=== PATIENT | female | born 1975 | race Caucasian/White ===

== ENCOUNTER → 2018-11-10 10:47 | Outpatient (CLI) | payer OTHER, SELFPAY ==
[2018-08-01 10:46] VITALS: BMI 24.0
--- NOTE | 2018-11-11 13:03 | PFT ---
INTRODUCTION: The patient is a 42-year-old female that presents for pulmonary function studies secondary to a diagnosis of COPD. Respiratory therapy reports good patient effort. Bronchodilators were used during testing. INTERPRETATION: Forced expiration spirometry demonstrates the presence of a mild large airways obstructive ventilatory defect. There was no significant response to aerosolized bronchodilators. Spirograms are of good quality and do not plateau indicating slow emptying of the lungs. Body plus tomography was performed and reveals lung volumes to be within normal limits. Diffusing capacity by single breath CO is also within normal limits. IMPRESSION: These pulmonary function studies demonstrate the presence of an irreversible mild large airways obstructive ventilatory defect with preserved lung volumes and diffusing capacity.
== END ==
PROVIDERS: Family Provider Family Medicine; PCP Family Medicine; Referring Provider Internal Medicine Critical Care Medicine; Visit Provider Internal Medicine Critical Care Medicine
DX: J45.40 Moderate persistent asthma, uncomplicated (principal)
CPT/HCPCS: 94060; 94726; 94729

== ENCOUNTER → 2018-12-13 16:05 | Outpatient (CLI) | payer OTHER, SELFPAY ==
--- NOTE | 2018-12-13 16:08 | CT_ITS ---
HISTORY: DYSPNEA X 6 MONTHS, COPD, ASTHMATIC BRONCHITIS TECHNIQUE: Helically acquired images were obtained of the chest. A radiation dose optimization technique was used for this scan. IV Contrast dosage and agent: None. COMPARISON: None FINDINGS: Mild hyperinflation. Minor peribronchial thickening in keeping with asthma/bronchitis. No pulmonary infiltrate, pulmonary nodule, or suspicious lesion. No bronchiectasis or interstitial lung disease. No pleural effusion or significant pleural disease. Non-infusion exam. No lymphadenopathy or pericardial effusion seen. Thoracic aorta is normal in caliber. Right adrenal gland 1.8 cm low-density nodule, 1-2 CT H.U. in keeping with a benign adenoma. CT/Chest without Contrast IMPRESSION: 1. Mild hyperinflation and minor peribronchial thickening in keeping with asthma/bronchitis. 2. No pneumonia or acute disease. 3. No bronchiectasis or suspicious lesion. 4. Right adrenal low-density nodule compatible with a benign adenoma. Individualized dose optimization techniques were used for this CT. at 0410 Reported and signed by: Mendoza Massey MD Electronically Signed: Mendoza Massey, at 4:08 EST Tel , Service support ,
== END ==
LOC: CT 16:07
PROVIDERS: Family Provider Family Medicine; PCP Family Medicine; Referring Provider Nurse Practitioner Acute Care; Visit Provider Nurse Practitioner Acute Care
DX: R06.02 Shortness of breath (principal)
CPT/HCPCS: 71250

== ENCOUNTER → 2018-12-29 09:25 | Outpatient (CLI) | payer OTHER, SELFPAY ==
[2018-12-22 14:10] VITALS: BMI 25.8
--- NOTE | 2018-12-29 09:27 | US_ITS ---
STUDY: ULTRASOUND BREAST - LEFT REASON FOR EXAM: Female, 43 years old. Ultrasound guided left breast biopsy. TECHNIQUE: Axial and longitudinal images of the LEFT breast were performed with a high resolution ultrasound transducer. COMPARISON: Comparison is made with prior outside examination dated December 09, 2018. FINDINGS: LEFT Breast: Under direct sonographic guidance, the surgeon performed 5 core biopsies of the hypoechoic nodule at the 1:00 position of the breast at 2 cm from the nipple. US/US Breast Biopsy 1st Lesion IMPRESSION: Ultrasound guided core biopsies of the hypoechoic nodule as described. ASSESSMENT CATEGORY: BIRADS Category 2: Benign. A letter regarding these results will be sent to the patient by the facility within 30 days. Electronically Signed: Chaitanya Clark MD at 11:29 EST , Service support ,
--- NOTE | 2018-12-29 10:44 | PCM.OPRPT ---
Problem List (1) Abnormal mammogram of left breast Status: Acute Report of Operation Date of Procedure: 12/29/18 Pre-Operative Diagnosis: Abnormal mammogram to left breast Post-Operative Diagnosis: Same Surgery/Procedure Performed:: Ultrasound-guided handheld mammotome breast biopsy of left breast Type of Anesthesia:: Local Estimated Blood Loss (mL): < 5 cc Description of Procedure: Patient was brought into the ultrasound unit. Placed in the supine position. Left breast was ultrasounded lesion was identified at the 12 o'clock position. The breast was prepped with chlorhexidine. 1% lidocaine plain was injected. A small skin le was made. Local was injected posterior to the lesion under ultrasound guidance. Under ultrasound guidance I directed the hand-held mammotome needle posterior to the lesion. Numerous biopsies of this lesion were obtained. Under ultrasound guidance a small titanium clip was placed. Sterile dressings were applied. The patient tolerated the procedure well. - Admit VTE Documentation VTE Present on Admission: No VTE Mechan Device Prophylaxis: None VTE Pharm Prophylaxis ordered?: No Reason prophylaxis not ordered:: Treatment Not Indicated
--- NOTE | 2018-12-29 10:50 | BRBX_PTH ---
PATIENT: AYLEEN ROMERO LOC: OPUS U#:[id number] AGE/SX: 49/F ROOM: RE12/29/[address]: Dr. Andrew Stevens MD : 1975 BED: DIS: SPEC #: [id number] RECD: 12/29/18 10:56 STATUS: AMRIT RELeonard #: [id number] DANNA: 12/29/18 10:[address]: Andrew Stevens DEPT: SURGICAL PATHOLOGY RECD BY: Paul Jenkins ENTERED: 12/29/18 12:21 SP TYPE: BREAST BX OTHR DR: Dr. Carlin Adam MD Tissues: Left breast, NOS Procedures: Surgery Specimen Level IV HEADER OPERATION: Ultrasound-guided left breast biopsy PRE-OP DIAGNOSIS: Left breast mass on ultrasound TISSUE SUBMITTED: Left breast ISCHEMIC TIME: 60 seconds FIXATION TIME: 9 hours MICROSCOPIC DIAGNOSIS Left breast, ultrasound-guided core biopsy: Fibrocystic change. No evidence of malignancy. AM:dajuan 12/30/18 MICROSCOPIC DESCRIPTION Slides are reviewed. GROSS DESCRIPTION Received in fixative is one container labeled with the patient's name and designated left breast. The specimen consists of multiple elongated fragments of evans-yellow fibroadipose tissue that in aggregate measure 2.5 x 1 x 0.1 cm. The entire specimen is submitted in one cassette. / SJ:dajuan 12/29/18 TC:5 CPT: 34040
== END ==
LOC: OPUS 09:25
PROVIDERS: Family Provider Family Medicine; PCP Family Medicine; Referring Provider Surgery; Visit Provider Surgery
DX: R92.8 Other abnormal and inconclusive findings on diagnostic imaging of breast (principal)
CPT/HCPCS: 19083; 88305

== ENCOUNTER 2019-01-11 08:42 | Day surgery (SDC) | payer OTHER, SELFPAY ==
[2018-12-22 14:10] VITALS: BMI 25.8
[2019-01-11 08:57] VITALS: BP 122/76; PULSE 89; RESP 18; TEMP 36.3; O2SAT 98; BMI 26.3
--- NOTE | 2019-01-11 09:45 | EGD_PTH ---
PATIENT: AYLEEN ROMERO LOC: EN U#:[id number] AGE/SX: 43/F ROOM: RE01/11/[address]: Dr. Andrew Stevens MD : 1975 BED: DIS: 01/11/2019 SPEC #: [id number] RECD: 01/11/19 10:25 STATUS: AMRIT LEA #: [id number] DANNA: 01/11/19 09:[address]: Andrew Stevens DEPT: SURGICAL PATHOLOGY RECD BY: Paul Jenkins ENTERED: 01/11/19 12:53 SP TYPE: EGD BIOPSY OTHR DR: Dr. Carlin Adam MD Tissues: A - Gastric mucous membrane B - Rectum, NOS Procedures: Surgery Specimen Level IV HEADER OPERATION: Colonoscopy, EGD ([facility]) PRE-OP DIAGNOSIS: Sweet's syndrome TISSUE SUBMITTED: A - Antral biopsy and H. pylori, B - Rectal polyp MICROSCOPIC DIAGNOSIS A. Gastric antrum, biopsy: Mild chronic gastritis. See comment. B. Rectal polyp, biopsy: Hyperplastic polyp. AM:dajuan 01/12/19 COMMENT A. The results of immunohistochemistry for Helicobacter pylori will be reported separately ([id number]). MICROSCOPIC DESCRIPTION Slides are reviewed. GROSS DESCRIPTION A - Received in fixative is one container labeled with the patient's name and designated gastric antral biopsy. The specimen consists of one irregular fragment of light eavns soft tissue that measures 0.5 x 0.3 x 0.1 cm. The specimen is totally submitted in one cassette. B - Received in fixative is one container labeled with the patient's name and designated rectal polyp. The specimen consists of one irregular fragment of light evans soft tissue that measures 0.3 x 0.2 x 0.1 cm. The specimen is totally submitted in one cassette. / AM:dajuan 01/11/19 TC:5 CPT: 15677 x2
--- NOTE | 2019-01-11 09:45 | IMM_PTH ---
PATIENT: AYLEEN ROMERO LOC: EN U#:[id number] AGE/SX: 43/F ROOM: RE01/11/[address]: Dr. Andrew Stevens MD : 1975 BED: DIS: 01/11/2019 SPEC #: [id number] RECD: 01/11/19 13:55 STATUS: AMRIT RELeonard #: [id number] DANNA: 01/11/19 09:[address]: Andrew Stevens DEPT: IMMUNOHISTOCHEMISTRY RECD BY: Danelle Chaparro ENTERED: 01/11/19 13:56 SP TYPE: IMMUNO OTHR DR: Dr. Carlin Adam MD Tissues: A - Stomach, NOS Procedures: H Pylori (initial) PHYSICIAN & INSTITUTION [place] [address] SPECIMEN INFORMATION: Tissue Source: A - Antral biopsy Clinical Info: Sweet's syndrome Specimen Number: [id number] CPT code: 33278 METHODOLOGY: Deparaffinized sections of prefer/formalin-fixed tissue or PAP/DQ stained slides are incubated with monoclonal/polyclonal antibodies/oligonucleotide probes. Localization is made via biotin free immunoperoxidase method. Appropriate controls are performed and reacted as expected. Results on target cell population are indicated in the following table: RESULTS: ANTIBODY / CLONE RESULT Block A H Pylori (polyclonal) negative These tests were developed and their performance characteristics determined by [facility]. They may not have been cleared or approved by the U.S. Food and Drug Administration. The FDA has determined that such clearance or approval is not necessary. INTERPRETATION: A. Antral biopsy: Negative for Helicobacter pylori organisms. AM:dajuan 01/12/19
[2019-01-11 10:06] VITALS: BP 122/76; BP 81/50; PULSE 72; RESP 16; TEMP 36.2; O2SAT 98
--- NOTE | 2019-01-11 10:06 | OP.ENDO_ITS ---
01/11/2019 Carlin Adam [address] [place] [address] [place] [address] Re : Upper GI endoscopy procedure for Lillie Holland Dear Dr. Adam This procedure was performed on Friday, January 11, 2019. My impressions and recommendations are as follows: Impressions : - Z-line regular, 39 cm from the incisors. - Normal esophagus. - Gastritis. Biopsied. - Normal examined duodenum. No specimens collected. Recommendations : - Discharge patient to home. - Resume previous diet. - Continue present medications. - Await pathology results. - Repeat upper endoscopy is not recommended for surveillance based on pathology results. - Return to my office in 1 week. My findings are described in the full procedure note, which is enclosed. If I can be of further assistance, please feel free to contact me at Doctor phone number(s): , Fax: [phone], Work: . Sincerely, MD Andrew Contreras MD 01/11/2019 10:06:10 AM This report has been signed electronically.
--- NOTE | 2019-01-11 10:09 | OP.ENDO_ITS ---
01/11/2019 Carlin Adam [address] [place] [address] [place] [address] Re : Colonoscopy procedure for Lillie Holland Dear Dr. Adam This procedure was performed on Friday, January 11, 2019. My impressions and recommendations are as follows: Impressions : - One 5 mm polyp in the rectum, removed with a hot snare. Resected and retrieved. - The entire examined colon is normal on direct and retroflexion views. Recommendations : - Discharge patient to home. - Resume previous diet. - Continue present medications. - Await pathology results. - Repeat colonoscopy in 3 years for surveillance. - Return to my office in 2 weeks. My findings are described in the full procedure note, which is enclosed. If I can be of further assistance, please feel free to contact me at Doctor phone number(s): , Fax: [phone], Work: . Sincerely, MD Andrew Contreras MD 01/11/2019 10:09:17 AM This report has been signed electronically.
[2019-01-11 10:10] VITALS: BP 122/76; BP 99/64; PULSE 68; RESP 16; O2SAT 99
[2019-01-11 10:15] VITALS: BP 104/58; BP 122/76; PULSE 69; RESP 16; O2SAT 100
[2019-01-11 10:24] VITALS: BP 101/61; BP 122/76; PULSE 69; RESP 16; TEMP 36.3; O2SAT 98
[2019-01-11 10:40] VITALS: BP 122/76
== END 2019-01-11 11:02 | disposition home or self-care (01) ==
LOC: EN 08:43 → AC 08:44
PROVIDERS: Family Provider Family Medicine; PCP Family Medicine; Referring Provider Surgery; Visit Provider Surgery
PROC: 0DJD8ZZ Inspection of Lower Intestinal Tract, Via Natural or Artificial Opening Endoscopic (ICD-10-PCS; CPT 45378; principal; 2019-01-11 09:40)
DX: K62.1 Rectal polyp (principal); K29.50 Unspecified chronic gastritis without bleeding; L98.2 Febrile neutrophilic dermatosis [Sweet]; J42 Unspecified chronic bronchitis; K21.9 Gastro-esophageal reflux disease without esophagitis; Z87.891 Personal history of nicotine dependence
CPT/HCPCS: 43235; 45385; 88305; 88342; J7120; J2405

== ENCOUNTER → 2023-10-25 | Outpatient (CLI) | payer MEDICAID, SELFPAY ==
[2023-10-25 13:53] VITALS: PULSE 82; PULSE 84; PULSE 87; PULSE 92; PULSE 94; PULSE 96; PULSE 97; O2SAT 98; O2SAT 99
--- NOTE | 2023-10-26 12:47 | WT_ITS ---
PSN 6 Minute Walk Test 6 Minute Walk Test 6 Minute Walk Test: 6 Minute Walk Test PSN:6-Minute Walk Test Start: 10/25/23 13:53 Freq: Status: Active Protocol: RESP.6MINW Document 10/25/23 13:53 [facility] (Rec: 10/25/23 13:56 [facility] [id number]) 6 Minute Walk Test Date Performed 10/25/23 Time Performed 12:30 Height 5 ft 3 in Weight: 145 lb Weight in Pounds 145.[address]: Dangelo Muller Assistive device used: None Pre-test Oxygen Delivery Method Room Air Pulse Ox 99 Pulse Rate (60-100) 84 Dyspnea Brandy Scale (0-10) 1 1st minute Oxygen Delivery Method Room Air Pulse Ox 99 Pulse Rate (60-100) 87 Dyspnea Brandy Scale (0-10) 2 Number of Rests Taken 0 Reported Symptoms Increased Work of Breathing 2nd minute Oxygen Delivery Method Room Air Pulse Ox 99 Pulse Rate (60-100) 92 Dyspnea Brandy Scale (0-10) 2 Number of Rests Taken 0 Reported Symptoms Increased Work of Breathing 3rd minute Oxygen Delivery Method Room Air Pulse Ox 98 Pulse Rate (60-100) 96 Dyspnea Brandy Scale (0-10) 3 Number of Rests Taken 0 Reported Symptoms Increased Work of Breathing 4th minute Oxygen Delivery Method Room Air Pulse Ox 98 Pulse Rate (60-100) 94 Dyspnea Brandy Scale (0-10) 3 Number of Rests Taken 0 Reported Symptoms Increased Work of Breathing 5th minute Oxygen Delivery Method Room Air Pulse Ox 99 Pulse Rate (60-100) 97 Dyspnea Brandy Scale (0-10) 3 Number of Rests Taken 0 Reported Symptoms Increased Work of Breathing 6th minute Oxygen Delivery Method Room Air Pulse Ox 99 Pulse Rate (60-100) 96 Dyspnea Brandy Scale (0-10) 3 Number of Rests Taken 0 Reported Symptoms Increased Work of Breathing Post-test Oxygen Delivery Method Room Air Pulse Ox 98 Pulse Rate (60-100) 82 Dyspnea Brandy Scale (0-10) 1 Full Laps Walked 19 Partial Lap, Number of Tiles Walked 0 Total Distance Walked (ft) 1121 Interpretation Interpretation: The patient ambulated 1121 feet over the course of 6 minutes beginning on room air without assistive devices. Pretesting oxygen saturation was noted to be 99% on room air. With ambulation, the cam oxygen saturation was 98%. There was no significant exertional oxygen desaturation. Recommendations Recommendations: There is no indication for the use of supplemental oxygen at this time.
== END | disposition home or self-care (01) ==
LOC: PSN 12:25
PROVIDERS: Referring Provider Internal Medicine Critical Care Medicine; Visit Provider Internal Medicine Critical Care Medicine
DX: J44.9 Chronic obstructive pulmonary disease, unspecified (principal)
CPT/HCPCS: 94618

== ENCOUNTER → 2023-12-13 | Outpatient (CLI) | payer MEDICAID, SELFPAY ==
--- NOTE | 2023-12-13 09:45 | ECHOD_ITS ---
Reason For Study: DYSPNEA/SOB Procedure This was a 2D Doppler, Color Flow transthoracic echocardiogram. Exam performed in department. Left Ventricle Normal size and thickness. The left ventricular ejection fraction is 60 %. Normal diastology for age. Right Ventricle Normal right ventricle. Atria The left and right atria are normal. Bubble contrast study is negative for PFO/ASD. Mitral Valve Trivial mitral valve insufficiency. Tricuspid Valve Normal tricuspid valve. Aortic Valve Trisinus/trileaflet aortic valve. Pulmonic Valve The pulmonic valve is not well visualized. Great Vessels Normal sized aortic root. Pericardium/Pleural No pericardial effusion. Epicardial fat. Medication 22 gauge I.V. with prn adaptor inserted into left arm. Performed a rapid injection of agitated mix of 9 cc saline and 1cc air to assess for atrial septal defect. MMode/2D Measurements & Calculations LVIDd: 4.6 cm IVSd: 0.89 cm Ao root diam: 2.9 cm LVIDs: 3.2 cm LVPWd: 0.70 cm RVDd: 2.8 cm FS: 30.8 % LAV(MOD-bp): 26.5 ml LVAd ap4: 27.1 cm2 SV(MOD-sp4): 49.0 ml LAV(MOD-bp) Indexed: 15.5 ml/m2 LVLd ap4: 7.4 cm LAV(MOD-sp2): 28.0 ml EDV(MOD-sp4): 80.9 ml LAV(MOD-sp4): 25.0 ml EDV(sp4-el): 84.5 ml LVAs ap4: 15.5 cm2 LVLs ap4: 6.4 cm ESV(MOD-sp4): 32.0 ml ESV(sp4-el): 31.8 ml EF(MOD-sp4): 60.5 % EF(sp4-el): 62.4 % SV(sp4-el): 52.8 ml LA A4 area: 11.6 cm2 LA dimension(2D): 3.4 cm RA A4 area: 10.3 cm2 TAPSE: 2.0 cm Time Measurements MV dec time: 0.19 sec Doppler Measurements & Calculations MV E max kory: 74.6 cm/sec Lat Peak E' Kory: 11.8 cm/sec Med Peak E' Kory: 12.1 cm/sec MV A max kory: 75.7 cm/sec E/E' lat: 6.3 E/E' med: 6.2 MV E/A: 0.99 Ao V2 max: 128.5 cm/sec LV V1 max: 96.1 cm/sec PA V2 max: 73.9 cm/sec Ao max P.6 mmHg LV V1 max P.7 mmHg ECHO/Echo Complete Interpretation Summary The left ventricular ejection fraction is 60 %. Bubble contrast study is negative for PFO/ASD. Ordering Physician: Ashanti Mejía Referring Physician: LEONORA SALDIVAR Performed By: [place] RDCS
--- OUTSIDE RECORDS SUMMARY | 2023-12-13 10:11 | XMS RPT_ITS | CCD ---
Author Name Unknown Address [address] [place] [address] Organization [facility] Care Team Providers Care Accounts Receivable Manager Name Role Phone SALDIVAR, LEONORA PAC Primary Care Unavailable SALDIVAR, LEONORA PAC Attending Unavailable SALDIVAR, LEONORA PAC Admitting Unavailable SALDIVAR, LEONORA PAC Primary Care Unavailable SALDIVAR, LEONORA PAC Attending Unavailable SALDIVAR, LEONORA PAC Admitting Unavailable SALDIVAR, LEONORA PAC Primary Care Unavailable SALDIVAR, LEONORA PAC Attending Unavailable SALDIVAR, LEONORA PAC Admitting Unavailable CECILE, HEBERT Guerrero Attending Unavailable CECILE, HEBERT Guerrero Admitting Unavailable CECILEHEBERT HENDRIX Primary Care Unavailable BONY PALAFOX Consulting Unavailable BONY PALAFOX Referring Unavailable PROVIDER, UNKNOWN Consulting Unavailable SALDIVAR, LEONORA Primary Care Unavailable KIERA, AASIM Referring Unavailable KIERA, AASIM Attending Unavailable SALDIVAR, LEONORA Primary Care Unavailable KIERA, AASIM Attending Unavailable SALDIVAR, LEONORA Primary Care Unavailable KIERA, AASIM Attending Unavailable SALDIVAR, LEONORA Referring Unavailable Saldivar PAJo, Leonora J Unavailable [phone] Zina Welch MD ([place]) Unavailable [facility], Pulmonary Unavailable Dr. Emerita Styles MD Unavailable Counseling Provider Unavailable Unavailable Rheumatolgy Provider Unavailable Unavailable Dr. Hood Gentile MD Unavailable Dr. Carlin Robles MD, V Unavailable Yarn Cleaner/Gynecology Prov. Unavailable Un available Cardiology Provider Unavailable Unavailable Dr. Soledad Quesada MD Unavailable [phone] [place], Occupational Therapy Unavailable Physical Therapy Provider Unavailable Barbra Lynch MD Unavailable Himanshu MILL TURNER, Frida Unavailable Renzo SEQUEIRA, Juan Amado Unavailable Sarah ROSAS, Bridget Unavailable Unavailable Gogoi (scribe), Hemanta Unavailable Unavaila eveline Garcias MILL TURNER, Nava Unavailable Unavailable Jair SEQUEIRA, Carlin Gerardo Unavailable Tenisha LABOY, Luerica Guerrero Unavailable Shiloh Palafox Unavailable Unavailable Tenisha RN, Agustina L Unavailable Unavail able Chirag ROSAS, Elizabeth Unavailable Unavailable Param BERGERONN, Daniella Unavailable Unavailable King KIMMYC, Rubio Segovia Unavailable Eloy HICKMAN, Radha Gerardo Unavailable Unavailraul Rossi RN, Shyla Unavailable Seven LABOY, Virgen Melton Unavailable Austyn BERGERONN, Leonor Unavailable Unavailabl lacie Bowers MILL TURNER, Lady Unavailable Unavailable Unavailable Unavailable Medications Current Medications Medication Drug Class(es) Dates Sig (Normalized) Sig (Original) diphenhydrAMINE hydrochloride 50 mg oral capsule (3 sources) Histamine-1 Receptor Antagonist Start: 08-27-2023 take 1 capsule by mouth at bedtime Unisom SleepGels 50 mg capsule ; 1 (one) capsule at bedtime for 0 days Quantity: 30 {Capsule} Refills: 0 Ordered: 27-Aug-2023 BENOIT Saldivar Start: 27-Aug-2023 DULoxetine 30 mg delayed release oral capsule (3 sources) Serotonin and Norepinephrine Reuptake Inhibitor Start: 10-27-2023 DULoxetine 30 mg capsule,delayed release ; 1 (one) capsule daily for 0 days Quantity: 60 {Capsule} Refills: 1 Ordered: 04-Nov-2023 BENOIT Saldivar Start: 04-Nov-2023 omeprazole 20 mg delayed release oral capsule (3 sources) Proton Pump Inhibitor Start: 11-02-2023 omeprazole 20 mg capsule,delayed release ; 1 (one) capsule daily for 0 days Quantity: 30 {Capsule} Refills: 2 Ordered: 02-Nov-2023 BENOIT Saldivar Start: 02-Nov-2023 terbinafine 250 mg oral tablet (3 sources) Allylamine Antifungal Start: 08-09-2023 terbinafine HCL 250 mg tablet ; 1 (one) tablet daily for 0 days Quantity: 42 {Tablet} Refills: 0 Ordered: 09-Aug-2023 BENOIT Saldivar Start: 09-Aug-2023 varenicline 1 mg oral tablet (12 sources) Partial Cholinergic Nicotinic Agonist Start: 07-19-2023 varenicline 1 mg tablet ; 1 (one) tablet two times daily for 30 days Quantity: 60 {Tablet} Refills: 1 Ordered: 19-Jul-2023 ALISON Beard Start: 19-Jul-2023 Completed/Discontinued Medications Medication Drug Class(es) Dates Sig (Normalized) Sig (Original) acetaminophen 325 mg / HYDROcodone bitartrate 5 mg oral tablet (3 sources) Opioid Agonist Start: 12-09-2015 End: 01-04-2017 take 1-2 tablets by mouth every six hours as needed Hydrocodone-Aceta minophen 5-325 MG Oral Tablet ; 1-2 Tablet every six hours, as needed for severe pain for 0 days Quantity: 30 {Tablet} Refills: 0 Ordered: 04-Jan-2017 VICK Lyons Start: 09-Dec-2015 End: 04-Jan-2017 Status: Inactive Comments: Medication taken as needed. may cause drowsiness Problems Active Problems Problem Classification Problem Date Documented Da te Episodic/Chronic Acute bronchitis (6 sources) Acute bronchitis 08-04-2021 Episodic Administrative/social admission (6 sources) Patient encounter status; Translations: [Tobacco abuse counseling] 08-04-2021 Episodic Alcohol-related disorders (6 sources) Alcohol abuse; Translations: [Alcohol abuse, uncomplicated] 08-09-2023 Chronic Chronic obstructive pulmonary disease and bronchiectasis (20 sources) Chronic airway obstruction, not elsewhere classified; Translations: [Moderate chronic obstructive pulmonary disease] 08-04-2021 Chronic Fluid and electrolyte disorders (6 sources) Hyperkalemia; Translations: [Hyperkalemia] 08-04-2021 Episodic Genitourinary symptoms and ill-defined conditions (6 sources) Incontinence; Translations: [Unspecified urinary incontinence] 08-09-2023 Chronic Immunizations and screening for infectious disease (6 sources) Immunization due; Translations: [Encounter for immunization] 07-22-2023 Episodic Malaise and fatigue (6 sources) Fatigue; Translations: [Other fatigue] 08-04-2021 Episodic Menstrual disorders (6 sources) Dysmenorrhea; Translations: [Dysmenorrhea, unspecified] 08-09-2023 Chronic Mood disorders (18 sources) Depressive disorder; Translations: [Depressive disorder, not elsewhere classified] 08-04-2021 Chronic Mycoses (20 sources) Onychomycosis; Translations: [Tinea unguium] 05-19-2023 Episodic Nausea and vomiting (6 sources) Nausea; Translations: [Nausea] 08-09-2023 Episodic Nonspecific chest pain (18 sources) Chest pain; Translations: [Chest pain, unspecified] 08-09-2023 Episodic Nutritional deficiencies (1 source) Vitamin D deficiency, unspecified; Translations: [Vitamin D deficiency, unspecified] Onset: 08-26-2023 Chronic Other aftercare (6 sources) Drug indicated; Translations: [Other fpc (current) drug therapy] 08-04-2021 Episodic Other circulatory disease (12 sources) Vasculitis; Translations: [Arteritis, unspecified] 08-09-2023 Chronic Other connective tissue disease (1 source) Myalgia, unspecified site; Translations: [Myalgia, unspecified site] Onset: 07-08-2023 Episodic Other connective tissue disease (1 source) Fibromyalgia; Translations: [Fibromyalgia] Onset: 07-08-2023 Episodic Other connective tissue disease (9 sources) Fibromyalgia; Translations: [Fibromyalgia] 08-27-2023 Episodic Other connective tissue disease (6 sources) Pain in right foot; Translations: [Pain in right foot] 08-09-2023 Episodic Other diseases of bladder and urethra (6 sources) Overactive bladder; Translations: [Overactive bladder] 08-09-2023 Chronic Other inflammatory condition of skin (1 source) Febrile neutrophilic dermatosis [Sweet]; Translations: [Febrile neutrophilic dermatosis (sweet)] Onset: 07-08-2023 Episodic Other inflammatory condition of skin (20 sources) Acute febrile neutrophilic dermatosis; Translations: [Febrile neutrophilic dermatosis [Sweet]] 08-09-2023 Episodic Other injuries and conditions due to external causes (6 sources) Other injury of chest wall 01-26-2019 Episodic Other injuries and conditions due to external causes (9 sources) Injury of chest wall; Translations: [Unspecified injury of thorax, initial encounter] 08-09-2023 Episodic Other injuries and conditions due to external causes (6 sources) Injury of great toe; Translations: [Unspecified injury of left foot, initial encounter] 08-09-2023 Episodic Other lower respiratory disease (9 sources) Cough; Translations: [Cough] 08-04-2021 Episodic Other lower respiratory disease (6 sources) Dyspnea; Translations: [Shortness of breath] 08-09-2023 Episodic Other nervous system disorders (9 sources) Disturbance of skin sensation 08-04-2021 Episodic Other non-traumatic joint disorders (1 source) Pain in unspecified joint; Translations: [Pain in unspecified joint] Onset: 07-08-2023 Episodic Other screening for suspected conditions (not mental disorders or infectious disease) (20 sources) Encounter for screening mammogram for malignant neoplasm of breast; Translations: [Patient encounter status] Onset: 05-21-2023 Episodic Other skin disorders (6 sources) Skin tag; Translations: [Other hypertrophic disorders of the skin] 08-04-2021 Episodic Residual codes; unclassified (9 sources) Insomnia; Translations: [Insomnia, unspecified] 08-27-2023 Episodic Residual codes; unclassified (20 sources) Tobacco user; Translations: [Tobacco use] 08-09-2023 Episodic Substance-related disorders (7 sources) Nicotine dependence, cigarettes, uncomplicated; Translations: [Procedure needed] Onset: 07-08-2023 08-04-2021 Chronic Unclassified (3 sources) deliveries 08-09-2023 Past or Other Problems Problem Classification Problem Date Documented Da te Episodic/Chronic Unclassified (3 sources) Well adult female - The patient does not feel well, has decreased energy level and is sleeping poorly. The first day of the last menstrual period was : (no longer having - had a hysterectomy in 2019). The patient has a balanced diet. The patient does not exercise. The patient sleeps 6 hours per night. Note for Well adult female : Patient's presents for her physical today with multiple complaints. She has not had regular follow up with a doctor in several years. She has fasting labs to be reviewed today.Patient complains today of shortness of breath and cough for several years. She has a history of COPD, but has not had PFTs or treatment in at least 3 years. She reports that the shortness of breath is sometimes made worse with exertion. She reports sometimes having a sharp, right-sided chest pain that will last for a number of seconds before resolving. She denies any chest pain on exertion or leg swelling.Patient also reports that she has been very fatigued and has little energy. She states that she does not feel motivated to complete tasks and that she has lost interest in things that she likes to do. She is having trouble sleeping and feels like she needs to sleep during the day. Her depression screen is positive, but she states I don't feel depressed. I only feel this bad because I am so tired. She does state that she has been emotional' and feels apple. 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 She reports that she has been having pain. She reports pin in my bones, not my joints. Patient is a current smoker and is interested in quitting. She currently smokes up to 2 packs a day. She has had some success in the past with Chantix.Patient was seen for onychomycosis in 2020. She was to have labs completed before starting an oral treatment. She did not have labs completed and treatment was not started. She would like to start this treatment now if possible. 06-14-2023 Unclassified (3 sources) TOE INJURY - On Wednesday evening pt dropped furniture on her left foot, her big toe is swelled and bruisedthe tip of the toe hurts the worse, very tenderfeels like its going to explode out the top per ptit hurts to walk, but it is getting better since it happened, its better when she is not moving it it thumbs when she is sleeping, hurts if anything touches it pt used tylenol at night pt did go to work yesterday but it was tough 10-15-2021 Unclassified (3 sources) Foot pain - The pain is in the right foot and is located in the forefoot. The onset of the foot pain was sudden and has been occurring in a persistent pattern for 1 week. The course has been worsening. The pain is characterized as a burning sensation (sharp). The pain is aggravated by any movement. The pain has been relieved by acetaminophen. Note for Foot pain : Denies any trauma 08-04-2021 Unclassified (3 sources) Follow-up - Patient is here today for a 2 month follow-up. 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 Patient was seen at [facility] for a rash on her thighs back in December. Was prescribed an ointment and the rash has resolved but continues to have itchiness of her thighs. Patient brought a list of recent symptoms: numbness and pain in right arm and hand, body aches, bones hurt, extreme fatigue, itchiness, trouble sleeping, temporary loss of vision, lightheadedness, nausea, headaches, off balance, memory loss and shortness of breath.Patient been seeing Dr. Eason for right arm pain, who referred pt to Dr. Poncho Rossi,was told that she may have compartment syndrome and should have a Nerve conduction study done. Last CBC, CMP, CEA, ESR done 11/29/2018. 01-26-2019 Unclassified (3 sources) Full Workup - Patient is here today to have a full workup for her Sweet syndrome. She was seen here for a rash previously and was then sent to [facility]. 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 States we should know what the full work up of this entails. There was concern about underlying malignancy. 11-29-2018 Unclassified (3 sources) Rash - The onset of the rash has been gradual and has been occurring in a persistent pattern for months. The course has been increasing. The rash is characterized as red and raised above the skin. The rash was first seen on the upper extremity (hands). It spread to the upper extremity (arms) and the lower extremity (legs). There has been associated itching and pain. Note for Rash : Patient states she was given a cream before that was ineffective. 08-26-2018 Unclassified (3 sources) Follow up consultation - The patient is here to follow-up after a consult (seen on office 05/27/2018 for cough, vasculitis. here for one week follow. chest xray done). Note for Consultation follow-up : rash is gone from last week. no longer itching. still has cough and fatigue. has been sleeping well (8 hours) but has been waking not feeling well rested.needing to go over lab results 06-03-2018 Unclassified (3 sources) Rash - The onset of the rash has been gradual and has been occurring in a persistent pattern for 1 month. The course has been increasing. The rash is characterized as red, pustular and raised above the skin. The rash was first seen on the upper extremity (hands). It spread to the back (shoulders) and the upper extremity (hands arms). There has been associated itching, pain and drainage (clear). There has been associated fatigue (unsure if related). 05-27-2018 Unclassified (3 sources) Well adult female - The patient does not feel well, has decreased energy level and is sleeping poorly (Trouble falling asleep and is up several times a night. Reports waking up due to having pain of her shoulders especiall the left shoulder). The first day of the last menstrual period was : (started with menses today. Her menses have been very irregular. Will last for about 3-4 days then will stop for 1-2 days then reoccur. Been having about two menses per month. Is experiencing a heavier flow, blood clots. Is more painful and cramps are worse than before. Is having night sweats. ). The patient has an inappropriate diet (eats usually once a day, sometimes will eat twice a day. When she does eat, she will eat a small portion.) and takes no supplemental vitamins & iron. The patient does not exercise. The patient sleeps 5 (5-6 hours, broken up sleep) hours per night. Note for Well adult female : Would like to discuss today having pain of her left shoulder area. The pain will radiate up her neck in the ear and down the arm and into the shoulder blade. Has numbness and tingling of her arms, fingers. Would like to discuss smoking cessation today. Reviewed by ERINN. 01-04-2017 Unclassified (3 sources) Concern - Patient is here today with a concern of having pain of the right side of the chest. Is a constant sharp shooting pain and the area is tender to the touch; pain is positional. She has been having the chest discomfort for the past couple of months. Is radiating into the right shoulder blade. The pain has worsened since falling Wednesday evening. Reports that she was carrying firewood and slipped, fell backwards. Does think the firewood impacted her chest during the fall. No bruising. Had severe pain yesterday morning. Feels short of breath and it is difficult to breath at times. Is having pain on inhalation and exhalation. Does having numbness and tingling of the bilateral arms with the right arm being worse. Is having trouble sleeping from the pain and numbness. The pain worsens when lying down. Thought it might have been from smoking and poor circulation. Has taken Ibuprofen that helps to ease the pain. Was coughing more yesterday than today. Did quit smoking 8 days ago. No fever 12-09-2015 Unclassified (3 sources) Cold Symptoms - Symptoms include nasal congestion, runny nose, sore throat, productive cough and headache, but do not include ear pain or fever. The onset was gradual 1 week(s) ago. The symptoms occur constantly. The patient describes this as moderate in severity and unchanged. Current treatment includes non-prescription cold medication. The patient has been exposed to an individual with similar symptoms. Patient denies history of seasonal allergies, recurrent sinusitis, recurrent strep pharyngitis, asthma, tonsillectomy or recurrent ear infections. Note for Upper respiratory infection : Has history of bronchitis. Has been out of her inhalers. + wheezing and SOB. 10-09-2015 Unclassified (3 sources) [ADDITIONAL REASON] spot below eye - Patient also stated that she just woke up 3 days ago and she has a spot under her left eye; worsening. Red and mcintyre. Did have some burning prior to bumps appearing. 10-09-2015 Results Test Name Value Interpretation Reference Range Facil ity Vital Signs Date Time Vital Sign Value Performing Clinician Faci lity 08-09-2023 10: Body height 160.02 cm Elizabeth Beard MA [employer] [facility] [employer], [employer]. 08-09-2023 10: Body mass index (BMI) [Ratio] 27.18 kg/m2 Elizabeth Beard MA [employer] [facility], [facility] [employer], [employer]. 08-09-2023 10:040 Body surface area Derived from formula 1.73 m2 Elizabeth Beard MA [facility], [facility].; [employer], [employer]. 08-09-2023 10: Body weight 69.6 kg [facility] 08-09-2023 10: Diastolic blood pressure 74 mm[Hg] Elizabeth Beard MA [facility] Encounters Encounter Date Encounter Type Care Provider Facility Start: 08-27-2023 End: 08-27-2023 Medication Leonora Saldivar PA-C [facility] Start: 08-27-2023 End: 08-27-2023 Medication Leonora Saldivar PA-C [facility] Start: 08-26-2023 End: 08-26-2023 ambulatory LEONORA SALDIVAR [facility] Start: 08-09-2023 End: 08-09-2023 Office outpatient visit 40 minutes Leonora Saldivar PA-C [facility] Start: 07-22-2023 End: 07-22-2023 Orders Leonora Saldivar PA-C [facility] Start: 07-19-2023 End: 07-19-2023 Medication Leonora Saldivar PA-C [facility] Start: 07-13-2023 End: 07-13-2023 Patient encounter procedure Leonora Saldivar PA-C [facility] Start: 07-08-2023 ambulatory LEONORA SALDIVAR [facility] Start: 07-08-2023 End: 07-08-2023 ambulatory LEONORA SALDIVAR [facility] Start: 06-28-2023 End: 06-28-2023 ambulatory LEONORA PAC [facility]DIV[facility] Start: 06-15-2023 End: 06-15-2023 ambulatory LEONORA PAC [facility]DIV[facility] Start: 06-11-2023 End: 06-14-2023 Periodic preventive med est patient 40-64yrs Leonora Saldivar PA-C Work Phone: [employer] Start: 06-11-2023 End: 06-14-2023 Physical examination Leonora Saldivar PA-C Work Phone: [employer]; [employer] Start: 05-21-2023 End: 05-21-2023 ambulatory LEONORA PAC SALDIVAR [facility] Start: 05-20-2023 End: 05-20-2023 Orders Leonora Saldivar PA-C Work Phone: [employer] Start: 05-19-2023 End: 05-19-2023 Orders Leonora Saldivar PA-C Work Phone: [employer] Start: 04-26-2023 End: 04-26-2023 Orders Leonora Saldivar PA-C Work Phone: [employer] Start: 08-30-2022 End: 08-30-2022 Emergency department patient visit [facility] Start: 10-15-2021 End: 10-15-2021 Office outpatient visit 15 minutes Leonora Saldivar PA-C Work Phone: [employer] Start: 08-04-2021 End: 08-04-2021 Office outpatient visit 15 minutes Leonora Saldivar PA-C Work Phone: [employer] Start: 06-16-2019 End: 06-16-2019 Orders Leonora Saldivar PA-C Work Phone: [employer] Start: 01-26-2019 End: 01-26-2019 Office outpatient visit 15 minutes Leonora Saldivar PA-C Work Phone: [employer] Start: 01-12-2019 End: 01-12-2019 Historical Summary Leonora Saldivar PA-C Work Phone: [employer] Start: 11-29-2018 End: 11-29-2018 Office outpatient visit 15 minutes Leonora Saldivar PA-C Work Phone: [employer] Start: 10-05-2018 End: 10-05-2018 Telephone follow-up Leonora Saldivar PA-C Work Phone: [employer]. Start: 08-26-2018 End: 08-26-2018 Office outpatient visit 15 minutes Leonora Saldivar PA-C Work Phone: [employer]. Start: 06-03-2018 End: 06-03-2018 Office outpatient visit 15 minutes Leonora Saldivar PA-C Work Phone: [employer]. Start: 05-27-2018 End: 05-27-2018 Office outpatient visit 15 minutes Leonora Saldivar PA-C Work Phone: [employer] Start: 01-25-2017 End: 01-25-2017 Orders Leonora Saldivar PA-C Work Phone: [employer]. Start: 01-13-2017 End: 01-13-2017 Orders Leonora Saldivar PA-C Work Phone: [employer]. Start: 01-05-2017 End: 01-05-2017 Orders Leonora Sadlivar PA-C Work Phone: [employer] Start: 01-04-2017 End: 01-04-2017 Patient encounter procedure Leonora Saldivar PA-C Work Phone: [employer] Start: 01-04-2017 End: 01-04-2017 Patient encounter status Leonora Saldivar PA-C Work Phone: [employer]; [employer]. Start: 12-12-2015 End: 12-12-2015 Medication Leonora Saldivar PA-C Work Phone: [employer]. Start: 12-09-2015 End: 12-09-2015 Office outpatient visit 15 minutes Leonora Saldivar PA-C Work Phone: [employer] Start: 10-09-2015 End: 10-09-2015 Patient encounter procedure Leonora Saldivar PA-C Work Phone: [employer] Start: 05-24-2014 End: 05-24-2014 Orders Leonora Sadlivar PA-C Work Phone: [employer]. Start: 04-24-2014 End: 04-24-2014 Orders Leonora Saldivar PA-C Work Phone: [employer]. Start: 03-20-2014 End: 03-20-2014 Patient encounter procedure Leonora Saldivar PA-C Work Phone: [employer] Start: 02-26-2012 End: 02-26-2012 Patient encounter procedure Leonora Saldivar PA-C Work Phone: [employer] Start: 02-26-2012 End: 02-26-2012 Routine gynecological examination Leonora Saldivar PA-C Work Phone: [employer]. Start: 02-12-2012 End: 02-12-2012 Medication Leonora Saldivar PA-C Work Phone: [employer]. Start: 02-08-2012 End: 02-08-2012 Historical Summary Leonora Saldivar PA-C Work Phone: [employer] Start: 02-08-2012 End: 02-08-2012 Patient encounter procedure Leonroa Saldivar PA-C Work Phone: [employer]. Start: 05-12-2011 End: 05-12-2011 Patient encounter procedure Leonora Saldivar PA-C Work Phone: [employer] Patient encounter status Lady Mcbride [employer] [employer] [facility]. Physical examination Leonora Sherman ean PA-C Work Phone: [employer] [facility] [employer] [facility]. Routine gynecologica l examination Lady Bowers LPN [employer]. Procedures Date Procedure Procedure Detail Performing Clinician Start: 06-11-2023 End: 07-09-2023 Brncdilat rspse spmtry pre&post-brncdilat admn Leonora Saldivar PA-C Work Phone: Start: 06-11-2023 End: 06-16-2023 Chest x-ray Leonora Saldivar PA-C Work Phone: Start: 06-11-2023 End: 06-11-2023 Depression screening Leonora Saldivar PA-C Work Phone: Start: 06-11-2023 End: 06-11-2023 Scr dep neg, no plan reqd Leonora Saldivar PA-C Work Phone: Start: 05-20-2023 End: 05-20-2023 Lab findings surveillance Elizabeth Gerardo Plan of Treatment Date Care Activity Detail Author Start: 01-04-2024 Patient encounter procedure Medical; EXTENDED RTN - 4 mo rtn [facility]. Start: 04-Jan-2024 10:50 BENOIT Saldivar Appointment Request [facility]. Start: 05-19-2023 Blood count complete auto&auto difrntl wbc CBC, PLATELETS & AUT DIFF (F) (20011) Start: 19-May-2023 14:43 Request [facility].; [facility] dexAMETHasone so d phos (bulk) 100 % powder Ordered: 27-May-2018 MD Carlin Adam [facility] Immunizations Immunization Date Immunization Notes Care Provider Fa bell 07-22-2023 tetanus toxoid, redu beatriz diphtheria toxoid, and acellular pertussis vaccine, adsorbed Leonora Saldivar PA-C Work Phone: [employer] Payers Date Payer Category Payer Unknown [id number] 1974 Unknown [id number] 1974 Unknown [id number] 1974 Unknown [id number] 1974 Unknown [id number] 1974 Unknown [id number] 1974 Unknown [id number] Private Health Insurance [id number] Private Health Insurance [id number] Unknown [facility] Social History Date Type Detail Facility Alcohol Use: Alcohol Use: ; O ccasional alcohol use. 7 or fewer drinks per week. [employer]; [facility] Caffeine Use Caffeine Use [employer] [facility] [employer] Tobacco Use: Tobacco Use: ; Former smoker . [facility]. Female [employer]. Work Phone: Occasional alcohol use [employer]. Work Phone: Smokes tobacco daily [employer]; [facility]. Work Phone: Smokes 1 pack of cigarettes per day [employer]. Work Phone: Smoker [employer] [facility] [employer] [facility] [employer] [employer] Work Phone: Ex-smoker [employer] [facility] [employer] [employer]. Work Phone: Summary Purpose Family History Arthritis Status:Active Comments:Mother. Breast Cancer Status:Active Comments:aunt Cerebrovascular Accident Status:Active Comment s:Mother. Great Grandmother Diabetes Mellitus Type II Status:Active Commen ts:Grandmother Hypertension Status:Active Comments:Grandmo ther Multiple Sclerosis Status:Active Comments:Sist er. Thyroid problems Status:Active Comments:Mother . Arthritis Status:Active Comments:Mother. Breast Cancer Status:Active Comments:aunt Cerebrovascular Accident Status:Active Comment s:Mother. Great Grandmother Diabetes Mellitus Type II Status:Active Commen ts:Grandmother Hypertension Status:Active Comments:Grandmo ther Multiple Sclerosis Status:Active Comments:Sist er. Thyroid problems Status:Active Comments:Mother . Arthritis Status:Active Comments:Mother. Breast Cancer Status:Active Comments:aunt Cerebrovascular Accident Status:Active Comment s:Mother. Great Grandmother Diabetes Mellitus Type II Status:Active Commen ts:Grandmother Hypertension Status:Active Comments:Grandmo ther Multiple Sclerosis Status:Active Comments:Sist er. Thyroid problems Status:Active Comments:Mother . Advance Directives No Advanced Directives Records FoundNo Advanced Directives Records FoundNo Advanced Directives Records Found Additional Source Comments INFORMATION SOURCE (unrecogn ized section and content) DATE CREATED AUTHOR AUTHOR'S ORGANIZ ATION 07/09/2023 [facility] DATE CREATED AUTHOR AUTHOR'S ORGANIZ ATION 08/28/2023 [facility] FOR RECORDS PERTAINING TO PATIENTS WHO ARE OR HAVE BEEN ENROLLED IN A CHEMICAL DEPENDENCY/SUBSTANCEABUSE PROGRAM, SOME INFORMATION MAY BE OMITTED. This clinical summary was aggregated from multiple sources. Caution should be exercised in using it in the provision of clinical care. This summary normalizes information from multiple sources, and as a consequence, information in this document may materially change the coding, format and clinical context of patient data. In addition, data may be omitted in some cases. CLINICAL DECISIONS SHOULD BE BASED ON THE PRIMARY CLINICAL RECORDS. [employer] provides no warranty or guarantee of the accuracy or completeness of information in this document.
== END | disposition home or self-care (01) ==
LOC: CVS 09:43
PROVIDERS: Referring Provider Nurse Practitioner Acute Care; Visit Provider Nurse Practitioner Acute Care
DX: R06.00 Dyspnea, unspecified (principal)
CPT/HCPCS: 93306; A4216

== ENCOUNTER → 2024-01-24 | Outpatient (CLI) | payer MEDICAID, SELFPAY ==
[2024-01-24] MEDS: Methacholine Chloride 18 ml neb kit INHALATION (13:07)
== END | disposition home or self-care (01) ==
LOC: PSN 12:52
PROVIDERS: Referring Provider Nurse Practitioner Acute Care; Visit Provider Nurse Practitioner Acute Care
DX: R06.09 Other forms of dyspnea (principal)
CPT/HCPCS: 94070; 95070

== ENCOUNTER → 2024-12-11 | Outpatient (CLI) | payer MEDICAID, SELFPAY ==
--- NOTE | 2024-12-11 13:41 | CT_ITS ---
PROCEDURE: LOW DOSE CT LUNG SCREENING REASON FOR EXAM: COPD; 30 year smoking history. TECHNIQUE: Low Dose CT Lung Screening without contrast COMPARISON: None. FINDINGS: PULMONARY NODULES: (Only nodules >6mm are reported) Nodules described below are on series unless otherwise specified. Pulmonary Nodules: No concerning pulmonary nodules. Hardware:None Lymph Nodes:No mediastinal hilar or axillary lymphadenopathy. Heart and Vasculature:Normal heart size. No pericardial effusion.Thoracic aorta and pulmonary arteries have normal contours; noncontrast technique limits evaluation. Coronary Artery Calcifications: Lungs and Airways: The lungs are normally expanded and clear. Pleura:No pleural effusion. No pneumothorax. Upper Abdomen:Visualized portions of the upper abdominal viscera are unremarkable. Bones:Bone windows are unremarkable. CT/Low Dose CT Lung Screening IMPRESSION: 1. BASED ON THE ACR LUNG RADS FOR THE MOST SUSPICIOUS NODULE (IF ANY) DESCRIBE D IN THIS REPORT, THE OVERALL LUNG RADS SCORE IS 1. 1 - NEGATIVE. RECOMMEND 12-MONTH SCREENING LDCT.. 2. SMOKING CESSATION COUNSELING IS RECOMMENDED IF THE PATIENT IS STILL SMOKING . 3. OTHER SIGNIFICANT FINDINGSNone. One or more dose reduction techniques were used (e.g., Automated exposure contr ol, adjustment of the mA and/or kV according to patient size, use of iterative reconstruction technique). The following information is provided for reference:Lung-RADS 202 Assessment C ategories. Additional information involving Lung-RADS is available at www.acr.org. 0-INCOMPLETE 1-NEGATIVE:No nodules or definitely benign nodules. Complete, central, popcorn , or centric ring calcifications OR fat containing 2-BENIGN APPEARANCE (based on imaging features or indolent behavior). Juxtaple ural nodule: < 10mm AND solid; smooth margins; oval, entiform, or triangular shape Solid nodule: <6mm at baseline or new< 4mm Part solid Nodule: < 6mm total mean diameter at baseline Nonsolid nodule:(GGN) < 30mm OR >=30mm stable or slowly growing Airway nodule, subsegmental at baseline, new, or stable Category 3 nodule stabl e or decreased in size at 6-month follow-up CT or Category 3 or 4A nodules that resolve on follow-up OR category 4B findings prov en to be benign following diagnotic work up. 3 - Probably Benign (Based on imaging features or behavior) Solid Nodule: >= 6 to <8mm at baseline OR new 4 to <6mm Part-solid nodule: >= 6mm toal mean diam. with solid component <6mm at baseline OR new < 6mm total mean diam. Non-solid nodule: GGN >= 30mm at baseline or new Atypical pulmonary cyst: Growing cystic component (mean diam.) of thick-walled cyst Category 4A nodule stable or decreased in size at 3-month follow-up CT (excl.ai rway). 4A - Suspicious Solid nodule: >=8 to < 15mm at baseline OR growing < 8mm OR new 6 to < 8mm Part solid nodule: >= 6mm total mean diam. w/ solid component >=6mm to < 8mm at baseline OR new or growing < 4mm solid component Airway nodule, segmental or more proximal at baseline or new Atypical pulmonary cyst: Thick-walled OR multilocular at baseline OR becomes mu ltilocular 4B - Very Suspicious Airway nodule, segmental or more proximal, and stable or growing Solid nodule: >= 15mm at baseline OR new or growing >= 8mm Part solid nodule: Solid component >= 8mm OR new or growing >= 4mm solid compon ent Atypical pulmonary cyst: Thick-walled with growing wall thickness/nodularity OR Growing multilocular (mean diam.) OR Multilocular with increased loculation or new/increased opacity Slow-growing solid or part solid nodule w/ growth over multiple screening exams 4X - Very Suspicious Category 3 or 4 nodules with additional features that increase the suspicion fo r lung cancer. S - Clinically Significant or potentially significant findings (non-lung cancer ) Reading Location: [id number]
== END | disposition home or self-care (01) ==
LOC: CT 13:40
PROVIDERS: Referring Provider Nurse Practitioner Acute Care; Visit Provider Nurse Practitioner Acute Care
DX: Z12.2 Encounter for screening for malignant neoplasm of respiratory organs (principal); F17.210 Nicotine dependence, cigarettes, uncomplicated
CPT/HCPCS: 71271

== ENCOUNTER → 2024-12-18 | Outpatient (CLI) | payer MEDICAID, SELFPAY | END | disposition home or self-care (01) | LOC: PSN 10:41 | PROVIDERS: Referring Provider Nurse Practitioner Acute Care; Visit Provider Nurse Practitioner Acute Care | DX: J44.89 Other specified chronic obstructive pulmonary disease (principal) | CPT/HCPCS: 94060; 94726; 94729 ==

== ENCOUNTER → 2025-03-23 | Outpatient (CLI) | payer MEDICAID, SELFPAY ==
--- NOTE | 2025-03-23 13:50 | ECHOCS_ITS ---
Reason For Study Reason For Study: DYSPNEA/SOB Procedure This was a 2D Doppler, Color Flow transthoracic echocardiogram. The study was technically difficult. Due to poor apical imaging windows. Exam performed in department. Left Ventricle Normal LV size. Left ventricular systolic function is normal. The left ventricular ejection fraction is 55 %. Stage 1 diastolic dysfunction. No regional wall motion abnormalities noted. Right Ventricle Normal RV size. Normal systolic function. Atria Normal left atrium. Normal right atrium. Mitral Valve Normal mitral valve. Tricuspid Valve Normal tricuspid valve. Aortic Valve Trisinus/trileaflet aortic valve. Pulmonic Valve Normal pulmonic valve. Great Vessels Normal aortic root. The pulmonary artery is normal size. Inferior vena cava collapse with respiration. Pericardium/Pleural No pericardial effusion. Medication 22 gauge I.V. with prn adaptor inserted into right arm. Diluted definity 2ml given slow IV push to enhance endocardial definition. MMode/2D Measurements & Calculations LVIDd: 4.4 cm IVSd: 1.0 cm Ao root diam: 3.2 cm LVIDs: 3.3 cm LVPWd: 1.0 cm RVDd: 2.9 cm FS: 25.5 % LAV(MOD-bp): 40.4 ml LVAd ap4: 25.8 cm2 LVAd ap2: 21.1 cm2 LAV(MOD-bp) Indexed: 21.6 ml/m2 LVLd ap4: 7.7 cm LVLd ap2: 7.4 cm LAV(MOD-sp2): 36.4 ml EDV(MOD-sp4): 74.1 ml EDV(MOD-sp2): 50.1 ml LAV(MOD-sp4): 43.9 ml EDV(sp4-el): 73.6 ml EDV(sp2-el): 51.0 ml LVAs ap4: 15.8 cm2 LVAs ap2: 12.7 cm2 LVLs ap4: 6.4 cm LVLs ap2: 6.0 cm ESV(MOD-sp4): 35.5 ml ESV(MOD-sp2): 22.3 ml ESV(sp4-el): 33.5 ml ESV(sp2-el): 23.0 ml EF(MOD-sp4): 52.1 % EF(MOD-sp2): 55.6 % EF(sp4-el): 54.5 % SV(MOD-sp4): 38.6 ml SV(MOD-sp2): 27.8 ml SV(sp4-el): 40.1 ml SI(MOD-sp4): 20.6 ml/m2 SI(MOD-sp2): 14.9 ml/m2 LA A4 area: 15.3 cm2 LA dimension(2D): 3.7 cm RA A4 area: 11.9 cm2 TAPSE: 2.2 cm Time Measurements MV dec time: 0.21 sec Doppler Measurements & Calculations MV E max kory: 57.6 cm/sec Lat Peak E' Kory: 7.5 cm/sec Med Peak E' Kory: 11.3 cm/sec MV A max kory: 74.1 cm/sec E/E' lat: 7.7 E/E' med: 5.1 MV E/A: 0.78 MV V2 max: 86.7 cm/sec MV P1/2t max kory: 79.6 cm/sec Ao V2 max: 137.4 cm/sec MV max P.0 mmHg MV P1/2t: 46.8 msec Ao max P.6 mmHg MV V2 mean: 56.6 cm/sec MV dec slope: 498.3 cm/sec2 Ao V2 mean: 96.9 cm/sec MV mean P.4 mmHg MVA(P1/2t): 4.7 cm2 Ao mean P.2 mmHg MV V2 VTI: 17.3 cm Ao V2 VTI: 24.3 cm AV (velocity ratio): 0.86 LV V1 max: 111.5 cm/sec PA V2 max: 92.0 cm/sec LV V1 max P.0 mmHg PA V2 mean: 66.9 cm/sec LV V1 mean P.7 mmHg LV V1 mean: 77.8 cm/sec LV V1 VTI: 21.0 cm ECHO/Echo Complete W/ Contrast Interpretation Summary Normal LV size. Left ventricular systolic function is normal. The left ventricular ejection fraction is 55 %. Stage 1 diastolic dysfunction. Ordering Physician: Ashanti Mejía Referring Physician: Rachele Khan Performed By: Yesenia Canales RDCS, RVT
== END | disposition home or self-care (01) ==
LOC: CVS 13:50
PROVIDERS: Referring Provider Nurse Practitioner Acute Care; Visit Provider Nurse Practitioner Acute Care
DX: R06.09 Other forms of dyspnea (principal)
CPT/HCPCS: 93306; Q9957; A4216; C8929

== ENCOUNTER → 2025-03-27 | Outpatient (CLI) | payer MEDICAID, SELFPAY ==
[2025-03-27 12:28] VITALS: PULSE 100; PULSE 69; PULSE 92; PULSE 93; PULSE 97; O2SAT 93; O2SAT 95; O2SAT 96; O2SAT 97; O2SAT 98
--- NOTE | 2025-04-03 12:28 | PCM.PSN.6M ---
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 APPLICATION SPECIALIST FIO2 (% Oxygen) 21 Assistive device None used: Pre-test Oxygen Delivery Room Air Method Pulse Ox (%) 98 Pulse Rate (60-100 69 beats/min) Dyspnea Brandy Scale ( 3 0-10) Exertion Brandy Scale 13 (6-20) 1st minute Oxygen Delivery Room Air Method Pulse Ox (%) 93 Pulse Rate (60-100 93 beats/min) Number of Rests 0 Taken 2nd minute Oxygen Delivery Room Air Method Pulse Ox (%) 96 Pulse Rate (60-100 97 beats/min) 3rd minute Oxygen Delivery Room Air Method Pulse Ox (%) 97 Pulse Rate (60-100 100 beats/min) Number of Rests 0 Taken Reported Symptoms Increased Work of Breathing 4th minute Oxygen Delivery Room Air Method Pulse Ox (%) 97 Pulse Rate (60-100 93 beats/min) Number of Rests 0 Taken Reported Symptoms Increased Work of Breathing 5th minute Oxygen Delivery Room Air Method Pulse Ox (%) 96 Pulse Rate (60-100 97 beats/min) Reported Symptoms Increased Work of Breathing 6th minute Oxygen Delivery Room Air Method Pulse Ox (%) 95 Pulse Rate (60-100 100 beats/min) Dyspnea Brandy Scale ( 4 0-10) Exertion Brandy Scale 15 (6-20) Number of Rests 0 Taken Reported Symptoms Increased Work of Breathing Post-test Oxygen Flow Rate (L/ 21 min) (L/min) Oxygen Delivery Room Air Method Pulse Ox (%) 97 Pulse Rate (60-100 92 beats/min) Dyspnea Brandy Scale ( 3 0-10) Exertion Brandy Scale 13 (6-20) Number of Rests 0 Taken Full Laps Walked 17 Partial Lap, Number 0 of Tiles Walked Total Distance 1003 Walked (ft) Interpretation Interpretation: The patient ambulated 1003 feet over the course of 6 minutes beginning on room air without assistive devices. Pretesting oxygen saturation was noted to be 98% on room air. With ambulation, the cam oxygen saturation was 93%. This represents a significant exertional oxygen desaturation, consistent with a pulmonary limitation to exercise tolerance. Recommendations Recommendations: There is no indication for the use of supplemental oxygen at this time.
== END | disposition home or self-care (01) ==
LOC: PSN 12:18
PROVIDERS: Referring Provider Nurse Practitioner Acute Care; Visit Provider Nurse Practitioner Acute Care
DX: R06.09 Other forms of dyspnea (principal)

== ENCOUNTER → 2025-04-01 | Outpatient (CLI) | payer MEDICAID, SELFPAY | END | disposition home or self-care (01) | LOC: SL 04-03 06:47 | PROVIDERS: Referring Provider Nurse Practitioner Acute Care; Visit Provider Nurse Practitioner Acute Care | DX: G47.33 Obstructive sleep apnea (adult) (pediatric) (principal); G47.10 Hypersomnia, unspecified | CPT/HCPCS: 95806 ==

== ENCOUNTER 2025-04-23 06:35 | Day surgery (SDC) | payer MEDICAID, SELFPAY ==
--- NOTE | 2025-04-19 13:54 | PAT.ANESEVAL ---
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 When Was Last Pacemaker Check QUESTION #4 FULL TEXT: You/Your Family Experience fever (hyperthermia) with Anesthesia Last Oral Intake Last Oral intake: Last Oral Intake NPO since Meds taken in AM with sips of water? 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 - fleet service clerk: PONV - fleet service clerk Female Yes 04/19/25 12:09 HX of Motion Sickness No 04/19/25 12:09 HX of N/V After Surgery No 04/19/25 12:09 Non-Smoker Yes 04/19/25 12:09 Duration of Surgery greater No 04/19/25 12:09 than 60 minutes Number of Risk Factors 2 04/19/25 12:09 PONV Score Moderate Risk 04/19/25 12:09 Height & Weight Height & Weight: Anesthesia: Height & Weight Height 5 ft 3 in 04/16/25 08:57 Respiratory Assessment Respiratory Assessment - fleet service clerk: Respiratory Tract Infection Hx - fleet service clerk Hx Respiratory Tract Infection No 04/19/25 12:09 STOP Sleep Apnea STOP Sleep Apnea - fleet service clerk: STOP Sleep Apnea - fleet service clerk Hx Hypertension No 04/19/25 12:09 Hx Sleep Apnea No 04/19/25 12:09 CPAP BIPAP Do you snore loudly (louder No 04/19/25 12:09 than talking or can be heard Do you often feel tired/ No 04/19/25 12:09 fatigued/ sleepy during daytime? Has anyone observed you stop No 04/19/25 12:09 breathing during sleep? STOP Results Negative 04/19/25 12:09 QUESTION #5 FULL TEXT : Do you snore loudly (louder than talking or can be heard through closed doors)? 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 Specify any problems Hx of Preganancy in last 3 No 04/19/25 12:09 Months Nurse Filling Out Transfusion VCHRISTIN 04/19/25 12:09 & Questions: Date: 04/19/25 04/19/25 12:09 Time: 12:10 04/19/25 12:09 Patient unable to answer at this time (ie. confused, unrespo /Reproduction History /Reproductive History - fleet service clerk: /Reproductive Hx- fleet service clerk Hx Now No 04/19/25 12:09 Gestational Age (in weeks): EDC: Hx Hx Para Hx Section SAB No 04/19/25 12:09 [facility] Medical History (Updated 04/19/25 @ 12:08 by Rosalina Sauer) Wears glasses Post-menopausal Marijuana use Alcohol use Gastric reflux Sleep apnea Former smoker Smoker Shortness of breath on exertion Hoarseness Chronic cough History of pain when walking History of echocardiogram Cardiology follow-up encounter Chest pain Acid reflux Abdominal pain Fatigue Anxiety Depression Heart murmur Abnormal ultrasound of breast Abnormal mammogram of left breast Sweets syndrome Tobacco dependence Moderate persistent asthma Bronchitis COPD (chronic obstructive pulmonary disease) Vasculitis Cough Home Medications ?Medication ?Instructions ?Recorded ?Last Taken ?Type omeprazole 20 mg capsule,delayed 20 mg PO DAILY 09/15/23 Unknown History release inhalational spacing device (Space #1 ea 11/03/23 Unknown History Chamber) multivitamin with minerals-folic 1 tab PO DAILY 01/03/24 Unknown History acid 0.4 mg tablet zolpidem 5 mg tablet 5 mg PO QHS PRN sleep 08/28/24 Unknown History albuterol sulfate 90 mcg/actuation 2 puff inhalation Q4H PRN 03/05/25 Unknown Rx aerosol inhaler shortness of breath or wheezing #8.5 grams fluticasone fur. 100 mcg-umeclid 1 inh inhalation QDAY #60 ea 04/10/25 Unknown Rx 62.5 mcg-vilant 25 mcg inhalat.powder (Trelegy Ellipta) Marijuana Medical Card .Route 04/16/25 Unknown History calcium 600 mg (as 1 tab PO DAILY 04/19/25 Unknown History carbonate)-vitamin D3 5 mcg (200 unit) tablet (Calcium 600 + D(3)) cetirizine 10 mg tablet (24Hour 10 mg PO DAILY PRN allergy symptoms 04/19/25 Unknown History Allergy) docusate sodium 100 mg capsule 100 mg PO DAILY 04/19/25 Unknown History (Col-Rite) oxybutynin chloride 10 mg 10 mg PO BID 04/19/25 Unknown History tablet,extended release 24 hr vitamin B complex (Complex B-100 1 tab PO DAILY 04/19/25 Unknown History tablet,extended release) Allergy/AdvReac Type Severity Reaction Status Date / Time No Known Allergies Allergy Verified 04/19/25 11:53 Family History Mother Arthritis Diabetes Surgical History (Updated 04/19/25 @ 12:08 by Rosalina Sauer) Hx of wisdom tooth extraction History of esophagogastroduodenoscopy (EGD) Hx of colonoscopy delivery delivered H/O: hysterectomy Social History Smoking Status: Former smoker quit date: 11/30/23 Tobacco: How many years used: 31 Electronic Cigarette Use: not used second hand exposure: Yes alcohol intake: current alcohol intake frequency: a few times a month substance use type: does not use caffeine: Yes frequency: does not exercise Audit: Pertinent Findings Pertinent Findings Echo (EF%) pertinent findings: 03/23/2025. Normal size function EF 55%. Recommendation Anesthesia Recommendation Anesthesia recommendation: OPTIMIZED for anesthesia
[2025-04-23] VITALS (9 sets, daily range): BP systolic 79–149; BP diastolic 41–84; PULSE 59–87; RESP 16–18; TEMP 36.1–36.6; O2SAT 95–100; BMI 32.0
--- OUTSIDE RECORDS SUMMARY | 2025-04-23 06:40 | XMS RPT_ITS | CCD ---
Author Organization [facility] Care Team Providers Care Wash Helper Name Role Phone Dr. Carlin Adam Primary Care Provider Dr. Carlin Adam Referring Provider Dr. Dangelo Muller Attending Provider LINA Saldivar Primary Care Provider Dr. Dangelo Muller Referring Provider Dr. Dangelo Muller Other Provider Leonora Saldivar PA-C Unavailable [phone] Yuri (Hailey) Dr. Zina SEQUEIRA Unavailable [phone] Medicine [facility], Pulmonary Unavailable Dr. Emerita Styles MD Unavailable Counseling Provider Unavailable Unavailable Rheumatolgy Provider Unavailable Unavailable Dr. Hood Gentile MD Unavailable Dr. Carlin Robles MD, V Unavailable [phone] Director Title/Gynecology Prov. Unavailable Un available Cardiology Provider Unavailable Unavailable Sangita SEQUEIRA, Dr. Rowe Unavailable [place], Occupational Therapy Unavailable Physical Therapy Provider Unavailable Juan Miguel Blanchard MD, Barbra Guerrero Unavailable Frida Downs LPN Unavailable Juan Muller MD Unavailable Bridget Smith MA Unavailable Unavailable Gogoi (scribe), Hemanta Unavailable Unavailraul Garcias LPN, Nava Unavailable Unavailable Carlin Adam MD Unavailable Tenisha LABOY, Luke E Unavailable Shiloh Steven C Unavailable Unavailable Tenisha RN, Agustina L Unavailable Unavail able Chirag ROSAS, Elizabeth Unavailable Unavailable Param UNIVERSITY TEACHER, Daniella Unavailable Unavailable King RUBINA-C, Rubio Segovia Unavailable Eloy HICKMAN, Radha Gerardo Unavailable Unavailraul Rossi RN, Shyla Unavailable Seven PAGildaC, Virgen J Unavailable Austyn UNIVERSITY TEACHER, Leonor Unavailable Unavailabl e Sannarosey UNIVERSITY TEACHER, Lady Unavailable Unavailable Unavailable Unavailable LINA Saldivar Leonora Referring Provider Kym CESPEDES, LOG HAUL OPERATOR-C Ashanti Attending Provider Dr. Fahad Beaver Attending Provider Miranda SEQUEIRA, Dr. Morin Unavailable [phone] LINA Saldivar Leonora Primary Care Provider [phone] Dr. Dangelo Muller Attending Provider Dr. Dangelo Muller Referring Provider Dr. Dangelo Muller Other Provider LINA Saldivar Leonora Referring Provider Kym CESPEDES, LOG HAUL OPERATOR-C Ashanti Attending Provider Dr. Fahad Beaver Attending Provider Carlin Adam Unavailable KIERA, AASIM Attending Unavailable SALDIVAR, LEONORA Primary Care Unavailable KIERA, AASIM Attending Unavailable SALDIVAR, LEONORA Primary Care Unavailable KIERA, AASIM Attending Unavailable SALDIVAR, LEONORA Referring Unavailable SALDIVAR, LEONORA Primary Care Unavailable KIERA, AASIM Attending Unavailable KIERA, AASIM Referring Unavailable SALDIVAR, LEONORA Primary Care Unavailable SHAHEEN, LAURITA Attending Unavailable SHAHEEN, LAURITA Attending Unavailable SHAHEEN, LAURITA Attending Unavailable [facility] Unavailable SALDIVAR, LEONORA PAC Attending Unavailable SALDIVAR, LEONORA PAC Admitting Unavailable SALDIVAR, LEONORA PAC Primary Care Unavailable SALDIVAR, LEONORA PAC Consulting Unavailable SALDIVAR, LEONORA PAC Attending Unavailable SALDIVAR, LEONORA PAC Admitting Unavailable SALDIVAR, LEONORA PAC Primary Care Unavailable PROVIDER, UNKNOWN Consulting Unavailable SALDIVAR, LEONORA PAC Consulting Unavailable SHAHEEN, LAURITA LOGISTICS SUPPLY OFFICER Admitting Unavailable SHAHEEN, LAURITA LOGISTICS SUPPLY OFFICER Primary Care Unavailable SHAHEEN, LAURITA LOGISTICS SUPPLY OFFICER Attending Unavailable PROVIDER, UNKNOWN Consulting Unavailable Podiatry Provider Unavailable Unavailable Saldivar PA, Leonora Primary Care Provider 1([facility])[phone] Mejía LOG HAUL OPERATOR-C, Ashanti Attending Provider Mejía LOG HAUL OPERATOR-C, Ashanti Referring Provider Saldivar PA, Leonora Referring Provider 1([facility])[phone] Carin SEQUEIRA, Dr. Montes Attending Provider 1([facility])[phone] Mejía LOG HAUL OPERATOR-C, Ashanti Other Provider 1([facility])[phone] Dr. Dangelo Muller DO Attending Provider 1([facility])[phone] Saldivar PA, Leonora Primary Care Provider 1([facility])[phone] Mejía LOG HAUL OPERATOR-C, Ashanti Attending Provider Mejía LOG HAUL OPERATOR-C, Ashanti Referring Provider Saldivar, Leonora Primary Care Unavailable Dangelo Muller Attending Unavailable Mejía LOG HAUL OPERATOR, Ashanti Referring Unavailable Saldivar, Leonora Referring Unavailable Saldivar, Leonora Primary Care Unavailable Mejía LOG HAUL OPERATOR, Ashanti Attending Unavailable Saldivar, Leonora Referring Unavailable Saldivar, Leonora Primary Care Unavailable Maddy Amador Attending Unavailable Saldivar, Leonora Primary Care Unavailable Mejía LOG HAUL OPERATOR, Ashanti Referring Unavailable Mejía LOG HAUL OPERATOR, Ashanti Attending Unavailable Saldivar, Leonora Primary Care Unavailable Mejía LOG HAUL OPERATOR, Ashanti Referring Unavailable Mejía LOG HAUL OPERATOR, Ashanti Attending Unavailable Saldivar, Leonora Primary Care Unavailable Mejía LOG HAUL OPERATOR, Ashanti Referring Unavailable Mejía LOG HAUL OPERATOR, Ashanti Attending Unavailable Mejía LOG HAUL OPERATOR, Ashanti Attending Unavailable Saldivar, Leonora Primary Care Unavailable Mejía LOG HAUL OPERATOR, Ashanti Referring Unavailable Mejía LOG HAUL OPERATOR, Ashanti Attending Unavailable Mejía LOG HAUL OPERATOR, Ashanti Attending Unavailable Saldivar, Leonora Primary Care Unavailable Saldivar, Leonora Referring Unavailable Mejía LOG HAUL OPERATOR, Ashanti Attending Unavailable Saldivar, Leonora Primary Care Unavailable Saldivar, Leonora Referring Unavailable Saldivar, Leonora Primary Care Unavailable Simon Del Rosario Attending Unavailable Saldivar, Leonora Primary Care Unavailable Dangelo Muller Attending Unavailable Mejía LOG HAUL OPERATOR, Ashanti Referring Unavailable Mejía LOG HAUL OPERATOR, Ashanti Consulting Unavailable Allergies Allergy Classification Reported Allergen(s) Allergy Type Date of Onset Reaction(s) Facility (5 sources) Sulfamethoxazole / Trimethoprim; Translations: [SULFAMETHOXAZOLE-TRI METHOPRIM] Drug Allergy 8 GI Upset [facility] Medications Current Medications Medication Drug Class(es) Dates Sig (Normalized) Sig (Original) Acetaminophen (4 sources) acetaminophen (T YLENOL ORAL) Take by mouth every 6 hours as needed. Active acetaminophen (T YLENOL ORAL) Take by mouth every 6 hours as needed. 0 Active [id number] 200 actuat albuterol 0.09 mg/actuat metered dose inhaler (20 sources) beta2-Adrenergic Agonist Start: 09-15-2023 End: 03-05-2025 Albuterol Sulfate 90 mcg/actuation HFA aerosol inhaler Active 2 NMA INHALATION Q4H as needed for shortness of breath or wheezing 8.March 05, 2025 1:12pm administer with spacer Start: 09-15-2023 take 1 puff(s) by in halation every four hours Albuterol Sulfate Active 2 PUFF INHALATION Q4H 8.5 September 15, 2023 1:00am administer with spacer Start: 05-30-2018 End: 11-29-2018 take 2 puff(s) by inhalation every four hours as needed Ventolin HFA 108 (90 Base) MCG/ACT Inhalation Aerosol Solution ; 2 (two) puff EVERY 4 HRS PRN for 0 days Quantity: 1 {Inhaler} Refills: 5 Ordered: 29-Nov-2018 Start: 30-May-2018 End: 29-Nov-2018 Status: Inactive Comments: rarely needs albuterol sulfat e 90 mcg/actuation breath activated powder inhaler ; as needed (90 mcg/actuat) Comments: Medication taken as needed. Comment on above: rarely needs Medication taken as needed. calcium carbonate 1500 mg / cholecalciferol 200 unt oral tablet (20 sources) Vitamin D calcium carbonat e 600 mg-vitamin D3 5 mcg (200 unit) tablet ; (600 mg-5 mcg (200 unit)) Calcium Carbonate / vitamin D3 (4 sources) calcium carbonate/vitamin D3 (CALCIUM 600 + D ORAL) Take by mouth. Active calcium carbonat e/vitamin D3 (CALCIUM 600 + D ORAL) Take by mouth. 0 Active Cholecalciferol (6 sources) Vitamin D Start: 09-15-2023 take 1 capsule by mouth every week Cholecalciferol (Vitamin D3) 250 mcg (10,000 unit) capsule Active 250 ug PO EVERY WEEK September 15, 2023 1:00am Start: 09-15-2023 take 250 ug by mouth every week Cholecalciferol (Vitamin D3) Active 250 MCG PO EVERY WEEK September 15, 2023 1:00am Start: 09-15-2023 take 250 ug by mouth every week Cholecalciferol (Vitamin D3) Active 250 MCG PO EVERY WEEK September 15, 2023 12:00am docusate sodium 50 mg / sennosides, mcc 8.6 mg oral tablet (20 sources) Stool Softener-S timulant Laxative 8.6 mg-50 mg tablet ; (8.6-50 mg) DULoxetine 60 mg delayed release oral capsule (20 sources) Serotonin and Norepinephrine Reuptake Inhibitor Start: 07-31-2024 End: 04-16-2025 DULoxetine 60 mg capsule,delayed release ; 1 (one) capsule daily for 0 days Quantity: 30 {Capsule} Refills: 5 Ordered: 12-Mar-2025 BENOIT Saldivar Start: 12-Mar-2025 Start: 01-04-2024 DULoxetine 60 mg capsule,delayed release ; 1 (one) capsule daily for 0 days Quantity: 30 {Capsule} Refills: 2 Ordered: 28-Mar-2024 BENOIT Saldivar Start: 28-Mar-2024 Start: 09-15-2023 End: 08-28-2024 take 1 capsule by mouth once daily Duloxetine 30 mg capsule,delayed release(DR/EC) Discontinued 30 mg PO DAILY September 15, 2023 1:00am August 28, 2024 2:18pm Gacczhbbfpd-Fcjoliyqh-Dojrth er (1 source) Anticholinergic, Corticosteroid, beta2-Adrenergic Agonist Start: 04-10-2025 Wbwzmaglmcz-Okfjhhjmy-Dtiptt er (Trelegy Ellipta) 100-62.5-25 mcg blister with device Active 1 NMA INHALATION daily April 10, 2025 12:00am administer at approximately the same time(s) each day Ibuprofen (4 sources) Nonsteroidal Anti-inflammatory Drug IBUPROFEN ORAL Take by mouth as needed. Active IBUPROFEN ORAL T marisol by mouth as needed. 0 Active Inhalational Spacing Device (Space Chamber) spacer (5 sources) Start: 11-03-2023 Inhalational S pacing Device (Space Chamber) spacer Active NMA .ROUTE .MEDSUPPLY November 03, 2023 1:00am As directed Start: 11-03-2023 Inhalational S pacing Device (Space Chamber) spacer Active EACH .ROUTE .MEDSUPPLY November 03, 2023 1:00am As directed Start: 11-03-2023 Inhalational S pacing Device (Space Chamber) spacer Active EACH .ROUTE .MEDSUPPLY November 03, 2023 12:00am As directed Marijuana Medical Card (1 source) Start: 04-16-2025 Marijuana Medi norbert Card Active .Route April 16, 2025 12:00am As ordered Multivit With Min-Folic Acid (1 source) Start: 01-03-2024 take 1 tablet by mouth once daily Multivit With Min-Folic Acid Active TABLET PO DAILY January 03, 2024 1:00am Multivit With Min-Folic Acid 0.4 mg tablet (3 sources) Start: 01-03-2024 Multivit With Min-Folic Acid 0.4 mg tablet Active {tbl} PO DAILY January 03, 2024 1:00am mv-min/iron/folic/calciu m/vitK (WOMEN'S MULTIVITAMIN ORAL) (4 sources) mv-min/iron/foli c/calci um/vitK (WOMEN'S MULTIVITAMIN ORAL) Take by mouth once daily. Active mv-min/iron/foli c/calcium/vitK (WOMEN'S MULTIVITAMIN ORAL) Take by mouth once daily. 0 Active omeprazole 20 mg delayed release oral capsule (20 sources) Proton Pump Inhibitor Start: 02-21-2025 omeprazole 20 mg capsule,delayed release ; 1 (one) capsule daily for 0 days Quantity: 30 {Capsule} Refills: 2 Ordered: 21-Feb-2025 BENOIT Saldivar Start: 21-Feb-2025 Start: 11-17-2024 omeprazole 20 mg capsule,delayed release ; 1 (one) capsule daily for 0 days Quantity: 30 {Capsule} Refills: 2 Ordered: 17-Nov-2024 BENOIT Saldivar Start: 17-Nov-2024 Start: 08-21-2024 omeprazole 20 mg capsule,delayed release ; 1 (one) capsule daily for 0 days Quantity: 30 {Capsule} Refills: 2 Ordered: 21-Aug-2024 BENOIT Saldivar Start: 21-Aug-2024 Start: 11-02-2023 omeprazole 20 mg capsule,delayed release ; 1 (one) capsule daily for 0 days Quantity: 30 {Capsule} Refills: 2 Ordered: 02-Nov-2023 BENOIT Saldivar Start: 02-Nov-2023 Start: 09-15-2023 take 1 capsule [address] [facility] once daily Omeprazole 20 mg capsule,delayed release(DR/EC) Active 20 mg PO DAILY September 15, 2023 1:00am Trelegy Ellipta 200 mcg-62.5 mcg-25 mcg powder for inhalation (12 sources) Trelegy Ellipta 200 mcg-62.5 mcg-25 mcg powder for inhalation ; daily (200-62.5-25 mcg) TRELEGY ELLIPTA 200-62.5-25 mcg inhalation powder (4 sources) Start: 03-16-2024 take 1 puff(s) by inhalation once daily TRELEGY ELLIPTA 200-62.5-25 mcg inhalation powder Inhale 1 Puff as instructed once daily. 03/16/2024 Active Start: 03-16-2024 take 1 puff(s) by in halation once daily TRELEGY ELLIPTA 200-62.5-25 mcg inhalation powder Inhale 1 Puff as instructed once daily. 0 03/16/2024 Active zolpidem tartrate 5 mg oral tablet (20 sources) gamma-Aminobutyric Acid-ergic Agonist Start: 02-28-2024 take 1 tablet by mouth at bedtime as needed Zolpidem 5 mg tablet Active 5 mg PO AT BEDTIME as needed August 28, 2024 12:00am Completed/Discontinued Medications Medication Drug Class(es) Dates Sig (Normalized) Sig (Original) acetaminophen 325 mg / HYDROcodone bitartrate 5 mg oral tablet (20 sources) Opioid Agonist Start: 12-09-2015 End: 01-04-2017 take 1-2 tablets by mouth every six hours as needed Hydrocodone-Aceta minophen 5-325 MG Oral Tablet ; 1-2 Tablet every six hours, as needed for severe pain for 0 days Quantity: 30 {Tablet} Refills: 0 Ordered: 04-Jan-2017 VICK Lyons Start: 09-Dec-2015 End: 04-Jan-2017 Status: Inactive Comments: Medication taken as needed. may cause drowsiness Comment on above: Medication taken as needed. may cause drowsiness amoxicillin 875 mg / clavulanate 125 mg oral tablet (20 sources) Penicillin-class Antibacterial Start: 07-13-2024 End: 07-20-2024 amoxicillin 875 mg-potassium clavulanate 125 mg tablet ; 1 (one) tablet two times daily for 7 days Quantity: 14 {Tablet} Refills: 0 Ordered: 13-Jul-2024 BENOIT Saldivar Start: 13-Jul-2024 End: 20-Jul-2024 Status: Inactive azithromycin 250 mg oral tablet (20 sources) Macrolide Antimicrobial Start: 10-09-2015 End: 12-09-2015 ZITHROMAX Z-MIAH, 250MG (Oral Tablet) ; 2 (two) Tablet today and then 1 tablet daily x 4 days for 0 days Quantity: 1 {Package} Refills: 0 Ordered: 09-Dec-2015 VICK Lyons Start: 09-Oct-2015 End: 09-Dec-2015 Status: Inactive Start: 02-08-2012 End: 02-13-2012 AZITHROMYCIN, 250MG (Oral Ta blet) ; 2 (two) Tablet today, then 1 tablet daily for 4 days for 5 days Quantity: 6 {Tablet} Refills: 0 Ordered: 08-Feb-2012 MD Barbra Blanchard Start: 08-Feb-2012 End: 13-Feb-2012 Status: Inactive 120 actuat budesonide 0.16 mg/actuat / formoterol fumarate 0.0045 mg/actuat metered dose inhaler (20 sources) Corticosteroid, beta2-Adrenergic Agonist Start: 08-10-2018 End: 08-26-2018 take 2 puff(s) by inhalation twice daily Symbicort 160-4.5 MCG/ACT Inhalation Aerosol ; 2 (two) Puff inaled two times daily for 0 days Quantity: 1 {Inhaler} Refills: 2 Ordered: 26-Aug-2018 Start: 10-Aug-2018 End: 26-Aug-2018 Status: Inactive Start: 08-01-2018 End: 08-26-2018 Budesonide-Formoterol (Symbi matthew) 160-4.5 mcg/actuation HFA aerosol inhaler Discontinued 2 NMA INHALATION TWICE A DAY August 01, 2018 12:00am August 26, 2018 2:17pm Start: 08-01-2018 End: 08-26-2018 take 1 puff(s) by inhalation twice daily Budesonide-Formoterol (Symbicort) 160-4.5 mcg/actuation HFA aerosol inhaler Discontinued 2 PUFF INHALATION TWICE A DAY August 01, 2018 12:00am August 26, 2018 2:17pm 24 hr buPROPion hydrochloride 150 mg extended release oral tablet (20 sources) Aminoketone Start: 03-20-2014 End: 03-23-2014 take 1 tablet by mouth once daily WELLBUTRIN XL, 150MG (Oral Tablet Extended Release 24 Hour) ; 1 (one) Tablet ER 24HR daily for 3 days Quantity: 3 {Tablet} Refills: 0 Ordered: 20-Mar-2014 MD Barbra Blanchard Start: 20-Mar-2014 End: 23-Mar-2014 Status: Inactive Comments: start first Start: 03-20-2014 End: 10-09-2015 take 1 tablet by mouth once daily WELLBUTRIN XL, 300MG (Oral Tablet Extended Release 24 Hour) ; 1 (one) Tablet ER 24HR daily for 0 days Quantity: 30 {Tablet} Refills: 2 Ordered: 09-Oct-2015 DEEPIKA Zaman Start: 20-Mar-2014 End: 09-Oct-2015 Status: Inactive Comments: start second Comment on above: start first start second codeine phosphate 2 mg/ml / guaiFENesin 20 mg/ml oral solution (20 sources) Opioid Agonist Start: 02-12-20 12 End: 03-20-20 14 GUAIFENESIN-CODEINE, 100-10MG/5ML (Oral Syrup) ; 1-2 teaspoon(s) every six hours, as needed for cough for 0 days Quantity: 120 {Milliliter} Refills: 0 Ordered: 20-Mar-2014 MD Barbra Blanchard Start: 12-Feb-2012 End: 20-Mar-2014 Status: Inactive Comments: Medication taken as needed. will cause drowsiness Comment on above: Medication taken as needed. will cause drowsiness colchicine 0.6 mg oral tablet (1 source) Start: 07-03-20 End: 03-27-20 24 colchicine 0.6 mg tablet take one a day, if tolerated, take two a day 60 tablet 5 07/03/2019 03/27/2024 Discontinued cyclobenzaprine hydrochloride 10 mg oral tablet (20 sources) Muscle Relaxant Start: 12-12-19 16 End: 01-04-20 17 take 1 tablet by mouth every eight hours as needed Cyclobenzaprine HCl 10 MG Oral Tablet ; 1 (one) Tablet every eight hours as needed for muscle spasm for 0 days Quantity: 20 {Tablet} Refills: 0 Ordered: 04-Jan-2017 VICK Lyons Start: 12-Dec-2015 End: 04-Jan-2017 Status: Inactive Comments: Medication taken as needed. may cause drowsiness, WM Comment on above: Medication taken as needed. may cause drowsiness, WM diphenhydrAMINE hydrochloride 50 mg oral capsule (20 sources) Histamine-1 Receptor Antagonist Start: 08-27-20 End: 07-13-20 24 take 1 capsule by mouth at bedtime Unisom SleepGels 50 mg capsule ; 1 (one) capsule at bedtime for 0 days Quantity: 30 {Capsule} Refills: 0 Ordered: 13-Jul-2024 ALISON Smith Start: 27-Aug-2023 End: 13-Jul-2024 Status: Inactive docusate sodium 100 mg oral capsule (16 sources) Start: 06-07-20 17 End: 09-15-20 23 take 1 capsule by mouth twice daily Docusate Sodium 100 MG capsule Discontinued 100 mg PO TWICE A DAY January 10, 2019 9:12am September 15, 2023 11:38am Docusate Sodium 100 mg tab Take by mouth twice daily. Active doxylamine succinate 25 mg oral tablet (6 sources) Start: 01-10-2019 End: 09-15-2023 Doxylamine Succinate 25 MG tablet Discontinued 25 mg PO NEEDED as needed for Insomnia January 10, 2019 1:00am September 15, 2023 11:39am estradiol 2 mg oral tablet (20 sources) Estrogen Start: 05-29-2024 End: 05-29-2025 take 1 tablet by mouth once daily Estradiol 2 mg tablet Discontinued 2 mg PO daily August 28, 2024 12:00am April 16, 2025 11:22am Start: 03-27-2024 End: 05-29-2024 take 1 tablet by mouth once daily estradiol (ESTRACE) 1 mg tablet Indications: Hot flashes Take 1 tablet by mouth once daily. 30 tablet 1 03/27/2024 05/29/2024 Discontinued 120 actuat fluticasone propionate 0.11 mg/actuat metered dose inhaler (20 sources) Corticosteroid Start: 05-30-2018 End: 11-29-2018 take 2 puff(s) by inhalation twice daily Flovent HFA 110 MCG/ACT Inhalation Aerosol ; 2 (two) puff(s) two times daily for 0 days Quantity: 1 {Inhaler} Refills: 5 Ordered: 29-Nov-2018 Start: 30-May-2018 End: 29-Nov-2018 Status: Inactive Start: 04-20-2017 End: 08-01-2018 Fluticasone Propionate 1 INH ALER inhaler Discontinued 2 NMA INHALATION TWICE A DAY April 20, 2017 12:00am August 01, 2018 10:47am Start: 04-20-2017 End: 08-01-2018 take 1 puff(s) by inhalation twice daily Fluticasone Propionate Discontinued 2 PUFF INHALATION TWICE A DAY April 20, 2017 12:00am August 01, 2018 10:47am Fluticasone Propion-Salmeterol (6 sources) Corticosteroid, beta2-Adrenergic Agonist Start: 08-26-2018 End: 08-26-2018 Fluticasone Propion-Salmeterol (Advair Hfa) 230-21 mcg/actuation HFA aerosol inhaler Discontinued 2 NMA INHALATION TWICE A DAY August 26, 2018 12:00am August 26, 2018 2:17pm Start: 08-26-2018 End: 08-26-2018 take 1 puff(s) by inhalation twice daily Fluticasone Propion-Salmeterol (Advair Hfa) 230-21 mcg/actuation HFA aerosol inhaler Discontinued 2 PUFF INHALATION TWICE A DAY August 26, 2018 12:00am August 26, 2018 2:17pm Start: 08-26-2018 End: 08-26-2018 take 1 puff(s) by inhalation twice daily Fluticasone Propion-Salmeterol (Advair Hfa) 230-21 mcg/actuation HFA aerosol inhaler Discontinued 2 PUFF INHALATION TWICE A DAY August 25, 2018 11:00pm August 26, 2018 1:17pm Fluticasone Furoate-Vilanterol (12 sources) Corticosteroid, beta2-Adrenergic Agonist Start: 09-02-2018 End: 11-22-2018 Fluticasone Furoate-Vilanterol (Breo Ellipta) 200-25 mcg/dose blister with device Discontinued 1 NMA INHALATION daily 60 September 02, 2018 2:19pm November 22, 2018 2:50pm after inhalation, rinse mouth with water and spit out; do not swallow Start: 09-02-2018 End: 11-22-2018 Fluticasone Furoate-Vilanter ol (Breo Ellipta) 200-25 mcg/dose blister with device Discontinued 1 INH INHALATION daily September 02, 2018 2:19pm November 22, 2018 2:50pm after inhalation, rinse mouth with water and spit out; do not swallow Start: 09-02-2018 End: 11-22-2018 Fluticasone Furoate-Vilanter ol (Breo Ellipta) 200-25 mcg/dose blister with device Discontinued 1 INH INHALATION daily September 02, 2018 1:19pm November 22, 2018 1:50pm after inhalation, rinse mouth with water and spit out; do not swallow Start: 08-26-2018 End: 09-02-2018 Fluticasone Furoate-Vilanter ol (Breo Ellipta) 200-25 mcg/dose blister with device Discontinued 1 NMA INHALATION daily August 26, 2018 12:00am September 02, 2018 2:19pm after inhalation, rinse mouth with water and spit out; do not swallow Start: 08-26-2018 End: 09-02-2018 Fluticasone Furoate-Vilanter ol (Breo Ellipta) 200-25 mcg/dose blister with device Discontinued 1 INH INHALATION daily August 26, 2018 12:00am September 02, 2018 2:19pm after inhalation, rinse mouth with water and spit out; do not swallow Start: 08-26-2018 End: 09-02-2018 Fluticasone Furoate-Vilanter ol (Breo Ellipta) 200-25 mcg/dose blister with device Discontinued 1 INH INHALATION daily 60 August 25, 2018 11:00pm September 02, 2018 1:19pm after inhalation, rinse mouth with water and spit out; do not swallow Hjnuzinfjbz-Ylipncvyv-Ffqpki er (10 sources) Start: 02-12-2025 End: 04-10-2025 Psfyqjizsrv-Stzlrgslz-Ysoanw er (Trelegy Ellipta) 200-62.5-25 mcg blister with device Discontinued 1 NMA INHALATION DAILY 60 February 12, 2025 2:00pm April 10, 2025 10:56am Start: 02-12-2025 Fluticasone-Um eclidin-Vilanter (Trelegy Ellipta) 200-62.5-25 mcg blister with device Active 1 NMA INHALATION DAILY 60 February 12, 2025 2:00pm Start: 05-29-2024 End: 02-12-2025 Hyygerpwzsp-Hxktlsxeb-Bagsyb er (Trelegy Ellipta) 200-62.5-25 mcg blister with device Discontinued 1 NMA INHALATION DAILY 60 May 29, 2024 12:34pm February 12, 2025 2:00pm Start: 01-03-2024 End: 05-29-2024 Ttffhmcajey-Lgrhsqhqy-Aiqolu er (Trelegy Ellipta) 200-62.5-25 mcg blister with device Discontinued 1 NMA INHALATION DAILY 60 January 03, 2024 1:00am May 29, 2024 12:34pm Start: 01-03-2024 Fluticasone-Um eclidin-Vilanter (Trelegy Ellipta) 200-62.5-25 mcg blister with device Active 1 INH INHALATION DAILY 60 January 03, 2024 1:00am gabapentin 100 mg oral capsule (20 sources) Anti-epileptic Agent Start: 08-28-2024 End: 03-05-2025 take 1 capsule by mouth twice daily Gabapentin 100 mg capsule Discontinued 100 mg PO TWICE A DAY August 28, 2024 12:00am March 05, 2025 12:59pm Start: 07-03-2019 gabapentin (NE URONTIN) 300 mg capsule take one tb at bedtime 30 capsule 5 07/03/2019 Active LORazepam 0.5 mg oral tablet (20 sources) Benzodiazepine Start: 02-26-2012 End: 03-20-2014 take 1 tablet by mouth every eight hours as needed LORAZEPAM, 0.5MG (Oral Tablet) ; 1 Tablet every eight hours as needed for anxiety for 0 days Quantity: 20 {Tablet} Refills: 0 Ordered: 20-Mar-2014 MD Barbra Blanchard Start: 26-Feb-2012 End: 20-Mar-2014 Status: Inactive Comments: Medication taken as needed. may cause drowsiness Comment on above: Medication taken as needed. may cause drowsiness Multivitamin 1 EACH tablet (3 sources) Start: 04-20-2017 End: 08-01-2018 Multivitamin 1 EACH tablet Discontinued 1 NMA PO DAILY April 20, 2017 12:00am August 01, 2018 10:47am Multivitamin preparation (3 sources) Start: 04-20-2017 End: 08-01-2018 Multivitamin Discontinued 1 EACH PO DAILY April 20, 2017 12:00am August 01, 2018 10:47am Start: 04-20-2017 End: 08-01-2018 Multivitamin Discontinued 1 EACH PO DAILY April 19, 2017 11:00pm August 01, 2018 9:47am 24 hr nicotine 0.583 mg/hr transdermal system (20 sources) Cholinergic Nicotinic Agonist Start: 03-20-2014 End: 10-09-2015 apply 1 dose transdermal route once daily NICODERM CQ, 14MG/24HR (Transdermal Patch 24 Hour) ; 1 Patch 24HR daily for 0 days Quantity: 21 {Patch} Refills: 0 Ordered: 09-Oct-2015 DEEPIKA Zaman Start: 20-Mar-2014 End: 09-Oct-2015 Status: Inactive Comments: start second Start: 03-20-2014 End: 10-09-2015 apply 1 dose transdermal route once daily NICODERM CQ, 21MG/24HR (Transdermal Patch 24 Hour) ; 1 Patch 24HR daily for 0 days Quantity: 21 {Patch} Refills: 0 Ordered: 09-Oct-2015 DEEPIKA Zaman Start: 20-Mar-2014 End: 09-Oct-2015 Status: Inactive Comments: start first Start: 03-20-2014 End: 10-09-2015 apply 1 dose transdermal route once daily NICODERM CQ, 7MG/24HR (Transdermal Patch 24 Hour) ; 1 Patch 24HR daily for 0 days Quantity: 30 {Patch} Refills: 0 Ordered: 09-Oct-2015 DEEPIKA Zaman Start: 20-Mar-2014 End: 09-Oct-2015 Status: Inactive Comments: start third Comment on above: start second start first start third 24 hr oxybutynin chloride 10 mg extended release oral tablet (20 sources) Cholinergic Muscarinic Antagonist Start: 4 End: 5 take 1 tablet by mouth once daily Oxybutynin Chloride 10 mg tablet extended release 24hr Discontinued 10 mg PO daily August 28, 2024 12:00am April 16, 2025 11:23am Start: 02-26-2012 End: 03-20-2014 take 1 tablet by mouth once daily OXYBUTYNIN CHLORIDE, 5MG (Oral Tablet) ; 1 Tablet daily for 0 days Quantity: 30 {Tablet} Refills: 1 Ordered: 20-Mar-2014 MD Barbra Blanchard Start: 26-Feb-2012 End: 20-Mar-2014 Status: Inactive oxyBUTYnin chlor johnathan ER 10 mg tablet,extended release 24 hr ; (10 mg) oxyCODONE hydrochloride 5 mg oral tablet (6 sources) Opioid Agonist Start: 06-07-2017 End: 08-01-2018 take 1 tablet by mouth every four hours as needed for pain Oxycodone 5 MG tablet Discontinued 5 mg PO EVERY 4 HOURS NEEDED as needed for Mod-Severe Pain (4-10/10) June 07, 2017 12:00am August 01, 2018 10:47am predniSONE 20 mg oral tablet (20 sources) Start: 08-04-2021 End: 10-15-2021 take 3 tablets by mouth once daily, then take 2 tablets by mouth once daily, then take 1 tablet by mouth once daily, then take 0.5 tablet by mouth once daily predniSONE 20 MG Oral Tablet ; 1 (one) Tablet as directed for 0 days Quantity: 20 {Tablet} Refills: 0 Ordered: 15-Oct-2021 DEEPIKA Virgen Start: 04-Aug-2021 End: 15-Oct-2021 Status: Inactive Comments: Take 3tabs qd for 3 days thenTake 2tabs qd for 3 days thenTake 1tab qd for 3 days thenTake 1/2tab qd for 4 days. Start: 02-20-2019 End: 08-04-2021 take 1 tablet by mouth twice daily predniSONE 5 MG Oral Tablet ; 1 (one) Tablet twice daily for 30 days Quantity: 60 {Tablet} Refills: 1 Ordered: 04-Aug-2021 DEEPIKA Bowers Start: 20-Feb-2019 End: 04-Aug-2021 Status: Inactive Start: 08-26-2018 End: 09-25-2018 take 1 tablet by mouth twice daily PredniSONE 10 MG Oral Tablet ; 1 (one) Tablet two times daily for 30 days Quantity: 60 {Tablet} Refills: 0 Ordered: 26-Aug-2018 MD Carlin Adam Start: 26-Aug-2018 End: 25-Sep-2018 Status: Inactive Comment on above: Take 3tabs qd for 3 days thenTake 2tabs qd for 3 days thenTake 1tab qd for 3 days thenTake 1/2tab qd for 4 days. pregabalin 50 mg oral capsule (15 sources) Start: 03-05-20 End: 04-16-20 take 1 capsule by mouth twice daily Pregabalin 50 mg capsule Discontinued 50 mg PO TWICE A DAY March 05, 2025 12:00am April 16, 2025 11:23am progesterone 100 mg oral capsule (6 sources) Progesterone Start: 05-29-20 End: 05-29-20 take 1 capsule by mouth at bedtime Progesterone Micronized 100 mg capsule Discontinued 100 mg PO AT BEDTIME August 28, 2024 12:00am April 16, 2025 11:23am sertraline 50 mg oral tablet (20 sources) Serotonin Reuptake Inhibitor Start: 02-26-20 End: 03-20-20 14 take 0.5 tablet by mouth once daily, then take 1 tablet by mouth once daily SERTRALINE HCL, 50MG (Oral Tablet) ; 1/2 Tablet daily for 1 week, the 1 tablet daily for 0 days Quantity: 30 {Tablet} Refills: 1 Ordered: 20-Mar-2014 MD Barbra Blanchard Start: 26-Feb-2012 End: 20-Mar-2014 Status: Inactive terbinafine 250 mg oral tablet (20 sources) Allylamine Antifungal Start: 08-09-20 End: 07-13-20 24 terbinafine HCL 250 mg tablet ; 1 (one) tablet daily for 0 days Quantity: 42 {Tablet} Refills: 0 Ordered: 13-Jul-2024 ALISON Smith Start: 09-Aug-2023 End: 13-Jul-2024 Status: Inactive valACYclovir 1000 mg oral tablet (20 sources) Herpesvirus Nucleoside Analog DNA Polymerase Inhibitor, Herpes Simplex Virus Nucleoside Analog DNA Polymerase Inhibitor, Herpes Zoster Virus Nucleoside Analog DNA Polymerase Inhibitor Start: 10-09-20 15 End: 10-16-20 15 take 1 tablet by mouth three times daily VALTREX, 1GM (Oral Tablet) ; 1 (one) Tablet TID for 7 days Quantity: 21 {Tablet} Refills: 0 Ordered: 09-Oct-2015 BENOIT Amezcua Start: 09-Oct-2015 End: 16-Oct-2015 Status: Inactive varenicline 1 mg oral tablet (20 sources) Partial Cholinergic Nicotinic Agonist Start: 07-19-20 23 End: 01-04-20 24 varenicline 1 mg tablet ; 1 (one) tablet two times daily for 30 days Quantity: 60 {Tablet} Refills: 1 Ordered: 04-Jan-2024 ALISON Beard Start: 19-Jul-2023 End: 04-Jan-2024 Status: Inactive Start: 06-11-2023 End: 01-04-2024 varenicline 0.5 mg (11)-1 mg (42) tablets in a dose pack ; 1 (one) tablet daily as directed for 0 days Quantity: 1 {Packet} Refills: 0 Ordered: 04-Jan-2024 ALISON Beard Start: 11-Jun-2023 End: 04-Jan-2024 Status: Inactive Start: 06-11-2023 varenicline 0. 5 mg (11)-1 mg (42) tablets in a dose pack ; 1 (one) tablet daily as directed for 0 days Quantity: 1 {Packet} Refills: 0 Ordered: 11-Jun-2023 ALISON Beard Start: 11-Jun-2023 Start: 06-11-2023 Chantix Starti ng Month Box 0.5 mg (11)-1 mg (42) tablets in dose pack ; 1 (one) Tablet as directed on pack for 30 days Quantity: 1 {Packet} Refills: 0 Ordered: 11-Jun-2023 BENOIT Saldivar Start: 11-Jun-2023 Status: Inactive Start: 08-22-2019 End: 08-04-2021 take 1 tablet by mouth twice daily Chantix 1 MG Oral Tablet ; 1 (one) Tablet two times daily for 30 days Quantity: 60 {Tablet} Refills: 5 Ordered: 04-Aug-2021 DEEPIKA Bowers Start: 22-Aug-2019 End: 04-Aug-2021 Status: Inactive Start: 08-01-2018 End: 11-22-2018 take 1 tablet by mouth twice daily Varenicline Tartrate (Chantix) 0.5 mg tablet Discontinued 0.5 mg PO TWICE A DAY August 01, 2018 12:00am November 22, 2018 2:17pm vitamin b6 100 mg oral tablet (1 source) End: 03-27-2024 take 1 tablet by mouth once daily pyridoxine, vitamin B6, (VITAMIN B-6) 100 mg tablet Take 100 mg by mouth once daily. 0 03/27/2024 Discontinued Problems Active Problems Problem Classification Problem Date Documented Date Episodic/Chronic Abdominal pain (6 sources) Abdominal pain; Translations: [Unspecified abdominal pain] 12-29-2018 Episodic Acute bronchitis (20 sources) Acute bronchitis 08-04-2021 Episodic Administrative/socia l admission (20 sources) Patient encounter status; Translations: [Tobacco abuse counseling] 08-04-2021 Episodic Alcohol-related disorders (20 sources) Alcohol abuse; Translations: [Alcohol abuse, uncomplicated] 08-09-2023 Chronic Anxiety disorders (6 sources) Anxiety; Translations: [Anxiety disorder, unspecified] 12-29-2018 Chronic Asthma (13 sources) Moderate persistent asthma; Translations: [Moderate persistent asthma, uncomplicated] Onset: 03-27-2024 12-29-2018 Chronic Chronic obstructive pulmonary disease and bronchiectasis (20 sources) Chronic obstructive lung disease; Translations: [Chronic obstructive pulmonary disease, unspecified] Onset: 09-15-2023 12-29-2018 Chronic Chronic obstructive pulmonary disease and bronchiectasis (6 sources) Bronchitis; Translations: [Bronchitis, not specified as acute or chronic] 12-29-2018 Episodic Chronic obstructive pulmonary disease and bronchiectasis (1 source) Chronic obstructive pulmonary disease and bronchiectasis; Translations: [Other specified chronic obstructive pulmonary disease] Onset: 01-10-2025 Conditions associated with dizziness or vertigo (18 sources) Vertigo; Translations: [Dizziness and giddiness] 02-02-2025 Episodic Esophageal disorders (10 sources) Gastroesophageal reflux disease; Translations: [Gastro-esophageal reflux disease without esophagitis] Onset: 03-27-2024 12-29-2018 Chronic Fluid and electrolyte disorders (20 sources) Hyperkalemia; Translations: [Hyperkalemia] 08-04-2021 Episodic Genitourinary symptoms and ill-defined conditions (20 sources) Incontinence; Translations: [Unspecified urinary incontinence] 08-09-2023 Chronic Heart valve disorders (10 sources) Heart murmur; Translations: [Cardiac murmur, unspecified] Onset: 03-27-2024 12-29-2018 Episodic Immunizations and screening for infectious disease (20 sources) Immunization due; Translations: [Encounter for immunization] 07-22-2023 Episodic Malaise and fatigue (20 sources) Fatigue; Translations: [Other fatigue] 12-29-2018 Episodic Menopausal disorders (1 source) Menopausal symptom; Translations: [Menopausal and female climacteric states] 07-24-2024 Chronic Menstrual disorders (20 sources) Dysmenorrhea; Translations: [Dysmenorrhea, unspecified] 08-09-2023 Chronic Mood disorders (20 sources) Depressive disorder; Translations: [Depression] 12-29-2018 Chronic Mycoses (20 sources) Onychomycosis; Translations: [Tinea unguium] 05-19-2023 Episodic Nausea and vomiting (20 sources) Nausea; Translations: [Nausea] 08-09-2023 Episodic Nonspecific chest pain (20 sources) Chest pain; Translations: [Chest pain, unspecified] 08-09-2023 Episodic Nutritional deficiencies (1 source) Vitamin D deficiency, unspecified; Translations: [Vitamin D deficiency, unspecified] Onset: 08-26-2023 Chronic Other aftercare (20 sources) Drug indicated; Translations: [Other intermediate manager (current) drug therapy] 08-04-2021 Episodic Other and ill-defined heart disease (3 sources) Diastolic dysfunction; Translations: [Other ill-defined heart diseases] 04-16-2025 Chronic Other and ill-defined heart disease (1 source) Other ill-defined heart diseases; Translations: [Other ill-defined heart diseases] Onset: 04-16-2025 Chronic Other circulatory disease (20 sources) Vasculitis; Translations: [Arteritis, unspecified] 12-29-2018 Chronic Other complications of ; puerperium affecting management of mother (6 sources) Deliveries by ; Translations: [Encounter for delivery without indication] 12-29-2018 Episodic Other connective tissue disease (20 sources) Fibromyalgia; Translations: [Fibromyalgia] 08-27-2023 Episodic Other connective tissue disease (20 sources) Pain in right foot; Translations: [Pain in right foot] 08-09-2023 Episodic Other connective tissue disease (5 sources) Fibromyalgia; Translations: [Myalgia and myositis, unspecified] Onset: 08-26-2023 11-03-2023 Episodic Other connective tissue disease (20 sources) Pain in right heel; Translations: [Pain in right foot] 01-08-2025 Episodic Other diseases of bladder and urethra (20 sources) Overactive bladder; Translations: [Overactive bladder] 08-09-2023 Chronic Other inflammatory condition of skin (20 sources) Acute febrile neutrophilic dermatosis; Translations: [Febrile neutrophilic dermatosis [Sweet]] Onset: 03-27-2024 12-29-2018 Episodic Other injuries and conditions due to external causes (20 sources) Other injury of chest wall 01-26-2019 Episodic Other injuries and conditions due to external causes (20 sources) Injury of chest wall; Translations: [Unspecified injury of thorax, initial encounter] 08-09-2023 Episodic Other injuries and conditions due to external causes (20 sources) Injury of great toe; Translations: [Unspecified injury of left foot, initial encounter] 08-09-2023 Episodic Other lower respiratory disease (20 sources) Cough; Translations: [Cough] 12-29-2018 Episodic Other lower respiratory disease (20 sources) Dyspnea; Translations: [Shortness of breath] 08-09-2023 Episodic Other lower respiratory disease (3 sources) Dyspnea, unspecified; Translations: [Other respiratory abnormalities] 11-03-2023 Episodic Other lower respiratory disease (2 sources) Other forms of dyspnea; Translations: [Other forms of dyspnea] Onset: 04-18-2025 Episodic Other nervous system disorders (20 sources) Disturbance of skin sensation 08-04-2021 Episodic Other nutritional; endocrine; and metabolic disorders (7 sources) Obesity; Translations: [Obesity, unspecified] 03-05-2025 Chronic Other nutritional; endocrine; and metabolic disorders (1 source) Other obesity due to excess calories; Translations: [Other obesity due to excess calories] Onset: 04-16-2025 Chronic Other nutritional; endocrine; and metabolic disorders (1 source) Body mass index (BMI) 32.0-32.9, adult; Translations: [Body mass index [BMI] 32.0-32.9, adult] Onset: 04-16-2025 Chronic Other nutritional; endocrine; and metabolic disorders (1 source) Unintentional weight gain; Translations: [Abnormal weight gain] 05-29-2024 Episodic Other skin disorders (20 sources) Skin tag; Translations: [Other hypertrophic disorders of the skin] 08-04-2021 Episodic Other upper respiratory disease (20 sources) Lesion of nose; Translations: [Other specified disorders of nose and nasal sinuses] 07-13-2024 Episodic Other upper respiratory infections (16 sources) Upper respiratory infection; Translations: [Acute upper respiratory infection, unspecified] 02-02-2025 Episodic Residual codes; unclassified (6 sources) Daytime hypersomnia; Translations: [Hypersomnia, unspecified] 03-05-2025 Chronic Residual codes; unclassified (2 sources) Obstructive sleep apnea syndrome; Translations: [Obstructive sleep apnea (adult) (pediatric)] 04-16-2025 Chronic Comment on above: AHI 10.2 Residual codes; unclassified (1 source) Obstructive sleep apnea (adult) (pediatric); Translations: [Obstructive sleep apnea (adult) (pediatric)] Onset: 04-16-2025 Chronic Residual codes; unclassified (1 source) Hypersomnia, unspecified; Translations: [Hypersomnia, unspecified] Onset: 03-05-2025 Chronic Residual codes; unclassified (6 sources) Past history of procedure; Translations: [Other specified postprocedural states] 01-23-2019 Episodic Comment on above: 01/11/19 Residual codes; unclassified (10 sources) History of colonoscopy; Translations: [Other specified postprocedural states] Onset: 03-27-2024 01-23-2019 Episodic Comment on above: 01/11/19 Residual codes; unclassified (20 sources) Insomnia; Translations: [Insomnia, unspecified] 10-20-2023 Episodic Residual codes; unclassified (20 sources) Tobacco user; Translations: [Tobacco use] 08-09-2023 Episodic Residual codes; unclassified (2 sources) Flushing; Translations: [Flushing] 03-27-2024 Episodic Residual codes; unclassified (1 source) Forgetful; Translations: [Other general symptoms and signs] 05-29-2024 Episodic Substance-related disorders (20 sources) Tobacco dependence syndrome; Translations: [Nicotine dependence, unspecified, uncomplicated] Onset: 07-08-2023 12-29-2018 Chronic Comment on above: Quit in 2023 Unclassified (20 sources) deliveries 08-09-2023 Comment on above: 2. Unclassified (20 sources) Number of Children 08-09-2023 Comment on above: 3. Unclassified (20 sources) Number of Pregnancies 08-09-2023 Comment on above: 3. Unclassified (20 sources) Vaginal deliveries 08-09-2023 Comment on above: 1. Unclassified (20 sources) Follow up for multiple chronic conditions - The patient is here for follow-up of Chronic Obstructive Pulmonary Disease, depression, fibromyalgia (Recently given a diagnosis of fibromyalgia from rheumatology) and other condition(s) (onychomycosis). The patient always takes the prescribed medications. No side effects noted. The patient has an active lifestyle but no regular exercise program. The patient states that breathing effort is stable, pain is worse, mood is unchanged and they are still having trouble sleeping (Patient reports that she has been having trouble sleeping for several years. She reports having trouble falling asleep due to her chronic pain. She has a very difficult time falling asleep because she cannot find a comfortable position. She has tried several OTC sleep aids without relief of symptoms. She is not currently taking any medications to help with her pain.). Note for Multiple chronic conditions follow-up: Patient feels that her toes have improved some with terbinafine, but thinks she may need a second round of treatment.Patient recently saw the asset protection professional she was referred to and was given a diagnosis of fibromyalgia. She has not yet been started on any treatment and has a follow up with rheumatology next month.Patient has been in contact with pulmonology and is scheduled to see them next month. She has been scheduled for a sleep study as well.She has a complaint today of urinary frequency and incontinence. She reports that this has been going on for years. She denies any dysuria or hematuria. She will wet herself if she is not able to get to the restroom quickly. She denies any leaking with coughing, jumping, or sneezing.Patient is interested in having my hormones tested. She is S/P total hysterectomy, but is unable to report exactly when her surgery was. She denies ever being on hormone replacement therapy. She feels that some of her symptoms may be related to menopause.She also reports chronic nausea. She reports a queasy feeling in her stomach most days. She has not noted any aggravating or relieving factors. She has not tried any medication to help with this.Patient reports no changes in her mood at this time. She has initiated counseling and has her first full session this week. 08-09-2023 Unclassified (20 sources) smoking cessation - Would like to discuss smoking cessation. Tried a patch a few years ago and wants to use that again, but needs new rx. Has not smoked for a week but did smoke some this past Sun.Had dental surgery a week ago and had to quit smoking for that. Has been wanting to quit for a while due to COPD and chronic bronchitis and concerns for her future health. 03-20-2014 Unclassified (20 sources) Well Adult, female - The patient does not feel well (Pt c/o having trouble falling asleep, numbness, she has terrible periods, stress, anxiety and depression.), has decreased energy level and is sleeping poorly. The first day of the last menstrual period was : (02/04/2012). The patient has a balanced diet. Patient exercises none (but is active). 02-26-2012 Unclassified (20 sources) rib pain - 3 weeks ago pt was carrying wood, slipped on the mud and fell on a large piece of wood on her left side, thought she broke a rib, no xrays done. This is still extremely painful for her, unable to sleep lying down, has a cough right now which makes it more painful. Tylenol PM is what she is currently using to rest. Very painful at first but then seemed better; but over the last few days has become worse again and is triggered by coughing, daily activities. Has tried NSAIDS but they upset her stomach. 02-08-2012 Unclassified (20 sources) wanting to stop smoking - Pt states she has smoked cigarettes for 20+ years. Currently smokes 1.5-2ppd. She would like to quit, but does not feel she can do it on her own. She says as soon as she thinks about quiting cold turkey she becomes very anxious. Is questioning the patch today, or whatever the medical card would cover and we think is best. She says she has COPD and recurrent bronchitis. Diagnosed 5 years ago. Did try flovent a couple years ago and it may have helped SOB. Has chronic cough at night. Notes pain in right chest, back, shoulder, and arm. Worse with laying down. not sleeping well partially due to pain (trouble getting to sleep)Did try wellbutrin to quit smoking and it did not work. 05-12-2011 Unclassified (20 sources) Follow up for multiple chronic conditions - The patient is here for follow-up of Chronic Obstructive Pulmonary Disease, depression, fibromyalgia and other condition(s) (chronic fatigue). The patient always takes the prescribed medications. No side effects noted. The patient has low activity level and no regular exercise program. The patient's out of office blood pressure checks occur rarely and dietary compliance is fairly good usually adhering to recommendations. The patient states that breathing effort is stable (Patient continues to have some shortness of breath. She is currently undergoing workup with pulmonology.), there are no vision changes or weakness, pain is worse (Patient reports that she continues to have fibromyalgia pain and pain in multiple joints (hands, wrists, knees). She feels that the duloxetine has been helpful for her sleep, but not sure if it is helping her pain. She was seen by rheumatology and they told her she needed to return to her PCP.), sleep patterns have improved and headaches are noted often but not on daily basis. 01-04-2024 Unclassified (1 source) Well adult female - The patient feels well with no complaints and has decreased energy level. The patient has a balanced diet and takes supplemental vitamins. The patient exercises none (active). The patient sleeps 6 hours per night. Note for Well adult female: 3.6.19 colonoscopy polyps 7.15.24 mammo normalPt said she has been getting sores in her nose. Pt said she has some break outs on her arms. Pt said she deals with fatigue and feels she can just fall asleep all the time. 07-13-2024 Unclassified (20 sources) Well adult female - The patient feels well with minor complaints, has decreased energy level and is sleeping well (Patient reports that her sleep has improved some with zolpidem prescribed by her specialist.). The patient has a balanced diet and takes supplemental vitamins. The patient exercises none (active). The patient sleeps 6 hours per night. Note for Well adult female: 3.6.19 colonoscopy polyps - repeat in 3-5 years7.15.24 mammo normalPt said she has been getting sores in her nose for the last month. She has been putting a salve on them with only temporary relief of her symptoms. She denies any runny nose, nasal congestion, fever, or chills.Pt said she deals with fatigue and feels she can just fall asleep all the time. She is currently seeing a staff physical therapy assistant for management of her fatigue and fibromyalgia. She has been started on gabapentin and feels that this medication may be helping some. 07-13-2024 Unclassified (1 source) Follow up for multiple chronic conditions - The patient is here for follow-up of Chronic Obstructive Pulmonary Disease, depression, fibromyalgia and insomnia. The patient always takes the prescribed medications. No side effects noted (will call when refills are needed). The patient has low activity level and no regular exercise program. The patient's out of office blood pressure checks occur rarely and dietary compliance is fairly good usually adhering to recommendations (will eat a fiber bar and apple in the morning, at lunch she will eat a 6 inch sub or salad, does not typically eat much for supper. She is concerned about her weight gain.). The patient states that breathing effort is more difficult (if she does any physical activity, she becomes short of breath very easily. She will be short of breath with talking. She is currently seeing tool programmer and has upcoming appointment in February to discuss results of CT scan and PFT.), weight has increased (16lbs since CARLOS), in general mood has improved (patient states that she is frustrated with the extreme fatigue. Zolpidem helps some.), sleep patterns have improved (feels sleep is better but she still wakes up with fibromyalgia pain. She is being switched from gabapentin to Lyrica.) and headaches have been noticed occasionally. Note for Multiple chronic conditions follow-up: She is having pain of the right heel. By the end of the day, she will have pain that goes up her leg and has trouble walking. Been having the heel pain for the past few months and the pain is getting a lot worse. The pain is constant. 01-08-2025 Unclassified (1 source) I51.89 - Other ill-defined heart diseases Unclassified (1 source) Obesity, class 1; Translations: [Obesity, class 1] Onset: 04-16-2025 Viral infection (20 sources) Herpes zoster; Translations: [Zoster without complications] 08-04-2021 Episodic Past or Other Problems Problem Classification Problem Date Documented Date Episodic/Chronic Other complications of (4 sources) Supervision of other high risk pregnancies, unspecified trimester; Translations: [Supervision of other high-risk ] Onset: 06-28-2007 Resolved: 03-27-2024 03-27-2024 Episodic Other connective tissue disease (1 source) Myalgia, unspecified site; Translations: [Myalgia, unspecified site] Onset: 07-08-2023 Episodic Other inflammatory condition of skin (1 source) Febrile neutrophilic dermatosis [Sweet]; Translations: [Febrile neutrophilic dermatosis (sweet)] Onset: 08-26-2023 Episodic Other non-traumatic joint disorders (1 source) Pain in unspecified joint; Translations: [Pain in unspecified joint] Onset: 07-08-2023 Episodic Other and delivery including normal (4 sources) Normal ; Translations: [Encounter for supervision of other normal , unspecified trimester] Onset: 12-31-2006 Resolved: 03-27-2024 03-27-2024 Episodic Other screening for suspected conditions (not mental disorders or infectious disease) (20 sources) Ultrasonography of breast abnormal; Translations: [Other abnormal and inconclusive findings on diagnostic imaging of breast] Onset: 12-26-2024 12-29-2018 Episodic Comment on above: Left Unclassified (20 sources) Well adult female - The patient does not feel well, has decreased energy level and is sleeping poorly. The first day of the last menstrual period was : (no longer having - had a hysterectomy in 2019). The patient has a balanced diet. The patient does not exercise. The patient sleeps 6 hours per night. Note for Well adult female: Patient's presents for her physical today with [...] reports pin in my bones, not my joints.Patient is a current smoker and is interested [...] this treatment now if possible. 06-14-2023 Unclassified (20 sources) TOE INJURY - On Wednesday evening [...] yesterday but it was tough 10-15-2021 Unclassified (20 sources) Foot pain - The pain is [...] been relieved by acetaminophen. Note for Foot pain: Denies any trauma 08-04-2021 Unclassified (20 sources) Follow-up - Patient is here today for a 2 month follow-up. 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 Patient was seen at [facility] for a rash on her thighs [...] CMP, CEA, ESR done 11/29/2018. 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 She was seen here for a rash previously and was then sent to [facility]. 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 States we should know what the full work up of this entails. There was concern about underlying malignancy. 11-29-2018 Unclassified (20 sources) Rash - The onset of the [...] been associated itching and pain. Note for Rash: Patient states she was given a cream before that was ineffective. 08-26-2018 Unclassified (20 sources) Follow up consultation - The patient is here to follow-up after a consult (seen on office 05/27/2018 for cough, vasculitis. here for one week follow. chest xray done). Note for Consultation follow-up: rash is gone from last week. no longer itching. still has cough and fatigue. has been sleeping well (8 hours) but has been waking not feeling well rested.needing to go over lab results 06-03-2018 Unclassified (20 sources) Rash - The onset of the [...] associated fatigue (unsure if related). 05-27-2018 Unclassified (20 sources) Well adult female - The patient [...] hours per night. Note for Well adult female: Would like to discuss today having pain of her left shoulder area. The pain will radiate up her neck in the ear and down the arm and into the shoulder blade. Has numbness and tingling of her arms, fingers. Would like to discuss smoking cessation today. Reviewed by ERINN. 01-04-2017 Unclassified (20 sources) Concern - Patient is here today [...] 8 days ago. No fever 12-09-2015 Unclassified (20 sources) Cold Symptoms - Symptoms include nasal [...] recurrent ear infections. Note for Upper respiratory infection: Has history of bronchitis. Has been out of her inhalers. + wheezing and SOB. 10-09-2015 Unclassified (20 sources) [ADDITIONAL REASON] spot below eye - Patient also stated that she just woke up 3 days ago and she has a spot under her left eye; worsening. Red and mcintyre. Did have some burning prior to bumps appearing. 10-09-2015 Unclassified (12 sources) spot below eye - Patient also stated that she just woke up 3 days ago and she has a spot under her left eye; worsening. Red and mcintyre. Did have some burning prior to bumps appearing. 10-09-2015 Unclassified (12 sources) [ADDITIONAL REASON] Cold Symptoms - Symptoms include nasal congestion, [...] recurrent ear infections. Note for Upper respiratory infection: Has history of bronchitis. Has been out of her inhalers. + wheezing and SOB. 10-09-2015 Unclassified (11 sources) Follow up for multiple chronic conditions - The patient is here for follow-up of Chronic Obstructive Pulmonary Disease, depression, fibromyalgia and insomnia. The patient always takes the prescribed medications. No side effects noted (will call when refills are needed). The patient has low activity level and no regular exercise program. The patient's out of office blood pressure checks occur rarely and dietary compliance is fairly good usually adhering to recommendations (will eat a fiber bar and apple in the morning, at lunch she will eat a 6 inch sub or salad, does not typically eat much for supper. She is concerned about her weight gain.). The patient states that breathing effort is more difficult (if she does any physical activity, she becomes short of breath very easily. She will be short of breath with talking. She is currently seeing tool programmer and has upcoming appointment in February to discuss results of CT scan and PFT.), weight has increased (16lbs since CARLOS), in general mood has improved (patient states that she is frustrated with the extreme fatigue. Zolpidem helps some.), sleep patterns have improved (feels sleep is better but she still wakes up with fibromyalgia pain. She is being switched from gabapentin to Lyrica.) and headaches have been noticed occasionally. Note for Multiple chronic conditions follow-up: She is having pain of the right heel. By the end of the day, she will have pain that goes up her leg and has trouble walking. Been having the heel pain for the past few months and the pain is getting a lot worse. The pain is constant. She reports that this pain is usually worse at the end of the day.Patient has also decided that she would like a referral to have a colonoscopy completed. 01-08-2025 Unclassified (8 sources) Cold Symptoms - Symptoms include nasal congestion, runny nose, ear fullness (Patient also reports trouble popping her ear drums and having some vertigo.), scratchy throat, wheezing, chills, general malaise and headache, but do not include ear pain, dry cough, productive cough, fever or facial pain. The onset was gradual 1 week(s) ago. The symptoms occur constantly. The patient describes this as mild and unchanged. The patient is not currently being treated for this problem. Risk factors do not include child in daycare or smoking. The patient has not been exposed to an individual with similar symptoms. Patient denies history of seasonal allergies, recurrent sinusitis or recurrent strep pharyngitis. 02-02-2025 Results Test Name Value Interpretation Reference Range Facility MR/PAT.[facility] 04-19-2025 MR/PAT.[facility] Medical Records Department [address] [place] [address] PAT - Anesthesia 04/19/25 1354 MR#: [id number] Acct: [id number] Name: LILLIE HOLLAND Rep #: [id number] : 1975 49 From: Hans Blair MD PCP: LINA Mckeon Status:PRE [facility] Y Race: C Location: EN Pre-Assessment Diagnosis/Proposed Procedure Planned Operative Procedure(s): COLONOSCOPY-OA Anesthesia History Anesthesia History - typing bookkeeper: Anesthesia History - typing bookkeeper Hx Hospitalization No 04/19/25 12:09 Any Problems With Anesthesia Yes: N V 04/19/25 12:09 Cholinesterase deficiency No 04/19/25 12:09 You/Your Family Experience No 04/19/25 12:09 fever (hyperthermia) with Relationship Recent Exposure to Contagious No 01/11/19 08:57 Disease Does patient have nerve No 04/19/25 12:09 stimulator Patient instructed to have device shut off --Does patient have Pacemaker or ICD? When Was Last Pacemaker Check QUESTION #4 FULL TEXT: You/Your Family Experience fever (hyperthermia) with Anesthesia Last Oral Intake Last Oral intake: Last Oral Intake NPO since Meds taken in AM with sips of water? 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 - typing bookkeeper: PONV - typing bookkeeper Female Yes 04/19/25 12:09 HX of Motion Sickness No 04/19/25 12:09 HX of N/V After Surgery No 04/19/25 12:09 Non-Smoker Yes 04/19/25 12:09 Duration of Surgery greater No 04/19/25 12:09 than 60 minutes Number of Risk Factors 2 04/19/25 12:09 PONV Score Moderate Risk 04/19/25 12:09 Height Weight Height Weight: Anesthesia: Height Weight Height 5 ft 3 in 04/16/25 08:57 Respiratory Assessment Respiratory Assessment - typing bookkeeper: Respiratory Tract Infection Hx - typing bookkeeper Hx Respiratory Tract Infection No 04/19/25 12:09 STOP Sleep Apnea STOP Sleep Apnea - typing bookkeeper: STOP Sleep Apnea - typing bookkeeper Hx Hypertension No 04/19/25 12:09 Hx Sleep Apnea No 04/19/25 12:09 CPAP BIPAP Do you snore loudly (louder No 04/19/25 12:09 than talking or can be heard Do you often feel tired/ No 04/19/25 12:09 fatigued/ sleepy during daytime? Has anyone observed you stop No 04/19/25 12:09 breathing during sleep? STOP Results Negative 04/19/25 12:09 QUESTION #5 FULL TEXT : Do you snore loudly (louder than talking or can be heard through closed doors)? Tobacco Use History Tobacco Use History - typing bookkeeper: Tobacco Use History - typing bookkeeper Tobacco Use Smoking Status Former smoker 04/19/25 12:09 Hx Tobacco Use Yes 04/19/25 12:09 Years Smoking Packs Smoked per Day Smoking Cessation Date was Yes - quit smoking within 15 04/19/25 12:09 within the last 15 years years Hx Smoking Cessation Date Hx Smoking Cessation Counseling Hematologic Medial History Hematologic Hx - typing bookkeeper: Hematologic Medical Hx - catering cook Hx of Blood Transfusion No 04/19/25 12:09 Hx of Transfusion in last 3 No 04/19/25 12:09 Months Date of Last Transfusion (if within last 3 months) Ever experience any problems No 04/19/25 12:09 with transfusion(s)? Specify any problems Hx of Preganancy in last 3 No 04/19/25 12:09 Months Nurse Filling Out Transfusion VCHRISTIN 04/19/25 12:09 Questions: Date: 04/19/25 04/19/25 12:09 Time: 12:10 04/19/25 12:09 Patient unable to answer at this time (ie. confused, unrespo /Reproducti on History /Reproducti ve History - typing bookkeeper: /Reproducti ve Hx- typing bookkeeper Hx Now No 04/19/25 12:09 Gestational Age (in weeks): EDC: Hx Hx Para Hx Section SAB No 04/19/25 12:09 [facility] Medical History (Updated 04/19/25 @ 12:08 by Rosalina Sauer) Wears glasses Post-menopausal Marijuana use Alcohol use Gastric reflux Sleep apnea Former smoker Smoker Shortness of breath on exertion Hoarseness Chronic cough History of pain when walking History of echocardiogram Cardiology follow-up encounter Chest pain Acid reflux Abdominal pain Fatigue Anxiety Depression Heart murmur Abnormal ultrasound of breast Abnormal mammogram of left breast Sweets syndrome Tobacco dependence Moderate persistent asthma Bronchitis COPD (chronic obstructive pulmonary disease) Vasculitis Cough Home Medications ???Medication ???Instructions ???Recorded ???Last Taken ???Type omeprazole 20 mg capsule,delayed 20 mg PO DAILY 09/15/23 Unknown Hi story release inhalational spacing device (Space #1 ea 11/03/23 Unknown History Chamber) multivitamin with minerals-folic 1 tab (more content not included)... Normal [facility] Pulmonary Visit Reporton Pulmonary Visit Report [facility] [place] [address] [place] [address] OFFICE VISIT Date of Service: 04/16/25 MR#: [id number] Acct: [id number] Name: LILLIE HOLLAND Rep #: [id number] : 1975 Provider: PRETEHI Mejía Age/Sex: 49/F [place] [facility] Status: Signed Assessment and Plan Assessment and Plan (1) Diastolic dysfunction: Status: Acute Comment: Stage I Plan: New. Recently clarified on echocardiogram, patient has stage I diastolic dysfunction. Unfortunately, echocardiogram did not estimate right sided heart pressures. The patient has never had a stress test. Given her symptoms of shortness of breath that are unexplained from a pulmonary etiology I am going to refer her to cardiology for evaluation and management. (2) Obstructive sleep apnea: Status: Acute Comment: AHI 10.2 Plan: New. Lengthy discussion about the pathophysiology of obstructive sleep apnea. We discussed the risks of untreated sleep apnea as well as the benefits. Started her on AutoPap 5 to 15 cm of water with initial goal will be to wear PAP at least 4 hours nightly. Ultimately, it should be worn any time spent sleeping. I have encouraged the patient to call the office with any difficulties acclimating to PAP therapy. Follow up in the office in 3 months, at which time I anticipate the patient will be on PAP therapy for 6-8 weeks. (3) Smoking greater than 20 pack years: Status: Chronic Comment: Quit in 2023 Plan: Continue to encourage complete smoking cessation. She remains appropriate for repeat LDCT in December 2025, ordered accordingly. (4) Obesity: Status: Chronic Qualifiers: Body mass index: BMI 32.0-32.9 Obesity classification: adult class 1 (BMI 30 - 34.9) Obesity type: due to excess calories Serious obesity comorbidity presence: unspecified whether serious comorbidity present Qualified Code(s): E66.811 - Obesity, class 1; E66.09 - Other obesity due to excess calories; Z68.32 - Body mass index [BMI] 32.0-32.9, adult Plan: Complicates exam, plan, care and prognosis. Continue to encourage healthy weight loss. (5) Fibromyalgia: Status: Chronic Plan: Complicates exam, plan, care and prognosis. Currently being managed by rheumatology. (6) Dyspnea: Status: Chronic Qualifiers: Dyspnea type: dyspnea on exertion Qualified Code(s): R06.09 - Other forms of dyspnea Plan: Of unclear etiology. The patient's PFT was not consistent with COPD. Orders: Referrals Cardiology I51.89 - Other ill-defined heart diseases Plan Details Additional Comments: This note was generated with misterbnb dictation software. It may contain incorrect words, spelling, and punctuation that were not noted in checking the note before signing. Follow Up: 3 Months HPI 3 M FU Chief Complaint: text results HPI Comments Details: This patient presents to the office today to discuss recent test results. She is ambulatory and currently on room air. She has not recently been seen in the ED or urgent care for any respiratory illness. She has not required any antibiotics or prednisone for any breathing problems. She is compliant with Trelegy 1 puff daily. She did report rinsing her mouth out after each use. She denies any side effects such as sore throat or thrush. She has not recently used albuterol. She only uses it a couple times a month. She does have shortness of breath on exertion and is exerted easily. She denies any cough, hemoptysis or sputum production. She has occasional wheezing but denies any chest tightness, chest pain or palpitations. She has not had any fever, chills or body aches. She continues complete smoking cessation. If you recall, she has a greater than 90-poqj-lauo smoking history but quit completely back in November of 2023. She reports persistent daytime hypersomnia. She never feels rested. She does report dry mouth. Test results personally reviewed with the patient: Unattended sleep study completed on April 02, 2025. Overall AHI is 10.2 events per hour. Impression is mild obstructive sleep apnea. Recommendation is to consider trial of auto adjusting CPAP, dental device or weight loss. Echocardiogram completed on March 23, 2025. Noted is diastolic dysfunction stage I. EF of 55%. Pulmonary artery is normal size. Unfortunately, right-sided heart pressures are not mentioned. Intake Vital Signs 03/05/25 08:44 03/27/25 12:28 04/16/25 08:57 Height 5 ft 3 in 5 ft 3 in 5 ft 3 in Weight: 182 lb BMI 32.2 BP 100/57 L Blood Pressure Location Lt brachial Position Sitting Respiration 18 Pulse 67 Pulse Source NIBP Temp 97.4 F L Temperature Source Temporal Artery Pulse Oximetry (%) 99 Oxygen Delivery Method room air Intake Visit Reasons: 3 M FU Chief Complaint: Shortness of breath on exertion Interpr (more content not included)... Normal [facility] 6 Minute Walk Teston 025 6 Minute Walk Test y [facility] [address] [place] [address] MR#: [id number] Acct: [id number] Name: LILLIE HOLLAND Rep #: [id number] : 1975 49 From: Dangelo Muller DO Referring Dr: Ashanti Mejía NP LOG HAUL OPERATOR-C Status: DEP CLI Location: PSN Date: Sex: F C PSN 6 Minute Walk Test 6 Minute Walk Test 6 Minute Walk Test: 6 Minute Walk Test PSN:6-Minute Walk Test Start: 03/27/25 12:41 Freq: Status: Discharge Protocol: [id number] Document 03/27/25 12:28 [facility]B (Rec: 03/27/25 12:47 WLB [id number]) 6 Minute Walk Test Date Performed 03/27/25 Time Performed 12:28 Height 5 ft 3 in Weight: 185 lb Weight in Pounds 185.[address]: Ashanti Mejía LOG HAUL OPERATOR FIO2 (% Oxygen) 21 Assistive device None used: Pre-test Oxygen Delivery Room Air Method Pulse Ox (%) 98 Pulse Rate (60-100 69 beats/min) Dyspnea Brandy Scale ( 3 0-10) Exertion Brandy Scale 13 (6-20) 1st minute Oxygen Delivery Room Air Method Pulse Ox (%) 93 Pulse Rate (60-100 93 beats/min) Number of Rests 0 Taken 2nd minute Oxygen Delivery Room Air Method Pulse Ox (%) 96 Pulse Rate (60-100 97 beats/min) 3rd minute Oxygen Delivery Room Air Method Pulse Ox (%) 97 Pulse Rate (60-100 100 beats/min) Number of Rests 0 Taken Reported Symptoms Increased Work of Breathing 4th minute Oxygen Delivery Room Air Method Pulse Ox (%) 97 Pulse Rate (60-100 93 beats/min) Number of Rests 0 Taken Reported Symptoms Increased Work of Breathing 5th minute Oxygen Delivery Room Air Method Pulse Ox (%) 96 Pulse Rate (60-100 97 beats/min) Reported Symptoms Increased Work of Breathing 6th minute Oxygen Delivery Room Air Method Pulse Ox (%) 95 Pulse Rate (60-100 100 beats/min) Dyspnea Brandy Scale ( 4 0-10) Exertion Brandy Scale 15 (6-20) Number of Rests 0 Taken Reported Symptoms Increased Work of Breathing Post-test Oxygen Flow Rate (L/ 21 min) (L/min) Oxygen Delivery Room Air Method Pulse Ox (%) 97 Pulse Rate (60-100 92 beats/min) Dyspnea Brandy Scale ( 3 0-10) Exertion Brandy Scale 13 (6-20) Number of Rests 0 Taken Full Laps Walked 17 Partial Lap, Number 0 of Tiles Walked Total Distance 1003 Walked (ft) Interpretation Interpretation: The patient ambulated 1003 feet over the course of 6 minutes beginning on room air without assistive devices. Pretesting oxygen saturation was noted to be 98% on room air. With ambulation, the cam oxygen saturation was 93%. This represents a significant exertional oxygen desaturation, consistent with a pulmonary limitation to exercise tolerance. Recommendations Recommendations: There is no indication for the use of supplemental oxygen at this time. 04/03/25 1228 Date Dangelo Muller DO CC: Date Dictated: 04/03/25 1228 Date Transcribed: 04/03/251227 Psychotherapist Social Worker: Dr. Dangelo Muller DO Signed Normal [facility] Echo Complete W/ Contraston 03-23-2025 Echo Complete W/ Contrast [facility] [address] [place] [address] Echo Complete W/ Contrast 03/23/25 1400 MR#: [id number] Acct: [id number] Name: LILLIE HOLLAND Rep #: [id number] : 1975 49 From: Simon Del Rosario MD Attending Dr: Ashanti Mejía, LOG HAUL OPERATOR-C Status: RE G CLI Ordering Dr: Ashanti Mejía LOG HAUL OPERATOR LOG HAUL OPERATOR-C Date: Location: [facility] Sex: F C Admitted: Reason For Study Reason For Study: DYSPNEA/SOB Procedure This was a 2D Doppler, Color Flow transthoracic echocardiogram. The study was technically difficult. Due to poor apical imaging windows. Exam performed in department. Left Ventricle Normal LV size. Left ventricular systolic function is normal. The left ventricular ejection fraction is 55 %. Stage 1 diastolic dysfunction. No regional wall motion abnormalities noted. Right Ventricle Normal RV size. Normal systolic function. Atria Normal left atrium. Normal right atrium. Mitral Valve Normal mitral valve. Tricuspid Valve Normal tricuspid valve. Aortic Valve Trisinus/trileaflet aortic valve. Pulmonic Valve Normal pulmonic valve. Great Vessels Normal aortic root. The pulmonary artery is normal size. Inferior vena cava collapse with respiration. Pericardium/Pleural No pericardial effusion. Medication 22 gauge I.V. with prn adaptor inserted into right arm. Diluted definity 2ml given slow IV push to enhance endocardial definition. MMode/2D Measurements Calculations LVIDd: 4.4 cm IVSd: 1.0 cm Ao root diam: 3.2 cm LVIDs: 3.3 cm LVPWd: 1.0 cm RVDd: 2.9 cm FS: 25.5 % LAV(MOD-bp): 40.4 ml LVAd ap4: 25.8 cm2 LVAd ap2: 21.1 cm2 LAV(MOD-bp) Indexed: 21.6 ml/m2 LVLd ap4: 7.7 cm LVLd ap2: 7.4 cm LAV(MOD-sp2): 36.4 ml EDV(MOD-sp4): 74.1 ml EDV(MOD-sp2): 50.1 ml LAV(MOD-sp4): 43.9 ml EDV(sp4-el): 73.6 ml EDV(sp2-el): 51.0 ml LVAs ap4: 15.8 cm2 LVAs ap2: 12.7 cm2 LVLs ap4: 6.4 cm LVLs ap2: 6.0 cm ESV(MOD-sp4): 35.5 ml ESV(MOD-sp2): 22.3 ml ESV(sp4-el): 33.5 ml ESV(sp2-el): 23.0 ml EF(MOD-sp4): 52.1 % EF(MOD-sp2): 55.6 % EF(sp4-el): 54.5 % SV(MOD-sp4): 38.6 ml SV(MOD-sp2): 27.8 ml SV(sp4-el): 40.1 ml SI(MOD-sp4): 20.6 ml/m2 SI(MOD-sp2): 14.9 ml/m2 LA A4 area: 15.3 cm2 LA dimension(2D): 3.7 cm RA A4 area: 11.9 cm2 TAPSE: 2.2 cm Time Measurements MV dec time: 0.21 sec Doppler Measurements Calculations MV E max jaycob: 57.6 cm/sec Lat Peak E' Jaycob: 7.5 cm/sec Med Peak E' Jaycob: 11.3 cm/sec MV A max jaycob: 74.1 cm/sec E/E' lat: 7.7 E/E' med: 5.1 MV E/A: 0.78 MV V2 max: 86.7 cm/sec MV P1/2t max jaycob: 79.6 cm/sec Ao V2 max: 137.4 cm/sec MV max P.0 mmHg MV P1/2t: 46.8 msec Ao max P.6 mmHg MV V2 mean: 56.6 cm/sec MV dec slope: 498.3 cm/sec2 Ao V2 mean: 96.9 cm/sec MV mean P.4 mmHg MVA(P1/2t): 4.7 cm2 Ao mean P.2 mmHg MV V2 VTI: 17.3 cm Ao V2 VTI: 24.3 cm AV (velocity ratio): 0.86 LV V1 max: 111.5 cm/sec PA V2 max: 92.0 cm/sec LV V1 max P.0 mmHg PA V2 mean: 66.9 cm/sec LV V1 mean P.7 mmHg LV V1 mean: 77.8 cm/sec LV V1 VTI: 21.0 cm ECHO/Echo Complete W/ Contrast Interpretation Summary Normal LV size. Left ventricular systolic function is normal. The left ventricular ejection fraction is 55 %. Stage 1 diastolic dysfunction. Ordering Physician: Ashanti Mejía Referring Physician: Leonora Saldivar Performed By: Yesenia Canales, BILLCS, RVT 03/23/251655 Date Simon Del Rosario MD CC: PREETHI Mejía; LINA Mckeon Date Dictated: 03/23/25 1400 Date Transcribed: 03/23/251655 Psychotherapist Social Worker: Signed Normal [facility] Pulmonary Visit Reporton Pulmonary Visit Report [facility] [place] [address] [place] [address] OFFICE VISIT Date of Service: 03/05/25 MR#: [id number] Acct: [id number] Name: LILLIE HOLLAND Rep #: [id number] : 1975 Provider: PREETHI Mejía Age/Sex: 49/F Location: [facility] Status: Signed Assessment and Plan Assessment and Plan (1) Dyspnea: Status: Chronic Qualifiers: Dyspnea type: dyspnea on exertion Qualified Code(s): R06.09 - Other forms of dyspnea Plan: Of unclear etiology. The patient's recent PFT was not consistent with COPD. She did have an isolated mild reduction in diffusing capacity. I am going to obtain an echocardiogram and a 6- minute walk test for further evaluation. If there are any abnormal findings on the echocardiogram I will likely refer her to cardiology. Return to the office in approximately 2 months to discuss test results. (2) Daytime hypersomnia: Status: Acute Plan: Suspicious for obstructive sleep apnea. The patient is appropriate for an unattended sleep study. Return to the office once test results are available for review. Untreated obstructive sleep apnea could be putting the patient at risk for the unintentional weight gain. (3) Smoking greater than 20 pack years: Status: Chronic Comment: Quit in 2023 Plan: Continue to encourage complete smoking cessation. She remains appropriate for repeat LDCT in December 2025, ordered accordingly. (4) Obesity: Status: Acute Qualifiers: Obesity type: due to excess calories Obesity classification: adult class 1 (BMI 30 - 34.9) Serious obesity comorbidity presence: unspecified whether serious comorbidity present Body mass index: BMI 32.0-32.9 Qualified Code(s): E66.811 - Obesity, class 1; E66.09 - Other obesity due to excess calories; Z68.32 - Body mass index [BMI] 32.0-32.9, adult Plan: Complicates exam, plan, care and prognosis. We discussed relationship between obesity and obstructive sleep apnea. Encourage healthy weight loss. (5) Fibromyalgia: Status: Chronic Plan: Complicates exam, plan, care and prognosis. Fibromyalgia can be contributing to the patient's overall deconditioning, which could be causing a sense of shortness of breath on exertion as the patient would be exerted more easily. We will try to evaluate further by obtaining this echocardiogram and 6-minute walk test. If they are unrevealing then the cause of the shortness of breath is likely deconditioning related to her autoimmune disease. Orders: Orders Low Dose CT Lung Screening 12/09/25 F17.200 - Nicotine dependence, unspecified, uncomplicated, F17.210 - Nicotine dependence, cigarettes, uncomplicated Echo Complete W/ Contrast Today R06.09 - Other forms of dyspnea Simple Pulmonary Exercise Test 03/27/25 R06.09 - Other forms of dyspnea Unattended Sleep Study Today G47.10 - Hypersomnia, unspecified, G47.33 - Obstructive sleep apnea (adult) (pediatric) Medications: Refilled albuterol sulfate 90 mcg/actuation administer with spacer 2 puffs inhalation Q4H PRN 8.5 grams 6RF shortness of breath or wheezing Plan Details Additional Comments: This note was generated with misterbnb dictation software. It may contain incorrect words, spelling, and punctuation that were not noted in checking the note before signing. HPI HPI Comments Details: This patient presents to the office today to discuss recent test results. She is ambulatory and currently on room air. She has not recently been seen in the ED or urgent care for any respiratory illness. She has not required any antibiotics or prednisone for any breathing problems. She is compliant with Trelegy 1 puff daily. She did report rinsing her mouth out after each use. She denies any side effects such as sore throat or thrush. She has not recently used albuterol. She only uses it a couple times a month. She does have shortness of breath on exertion. She is concerned because she is exerted easily. She reports having to take frequent rest breaks, even if walking in from the parking lot. She denies any cough, hemoptysis or sputum production. She has occasional wheezing but denies any chest tightness, chest pain or palpitations. She has not had any fever, chills or body aches. She continues complete smoking cessation. If you recall, she has a greater than 75-xvpt-piul smoking history but quit completely back in November of 2023. She reports persistent daytime hypersomnia. She never feels rested. She can sleep 6 or 8 hours at night, and still feel tired the next day. She believes that she snores. She has awakened herself by coughing. She has at least 1 episode of nocturia nightly. She does report dry mouth. She is also concerned about unintentional weight gain. Test results personally reviewed with the patient: LDCT completed on December 11, 2024. No concerning pulmon (more content not included)... Normal [facility] FOOT COMPLETE RTon FOOT COMPLETE RT [place] [id number] Patient: LILLIE HOLLAND Phone#: : 1975 Age: 49 Gender: F Pt. Type: Out Account: [id number] Location: [facility] Ordering: LEONORA SALDIVAR Exam Date: 01/08/2025/12:31 Family Phys: Charge Code: [id number] Physician: [place] Order #: [id number] Dose#: PROCEDURE: X-RAY FOOT RT COMPLETE MIN 3 VIEWS COMPARISON: [facility], XR, FOOT RT COMPLETE, 08/04/2021, 14:47. INDICATIONS: Right heel pain FINDINGS: BONES: A 7 millimeter calcaneal spur is present and is larger than on prior exam. There is no evidence of acute bone abnormality. Mild hallux valgus deformity is present. SOFT TISSUES: Negative. No visible soft tissue swelling. EFFUSION: None visible. OTHER: Negative. CONCLUSION: 1. Calcaneal spur is present. Dictated by: Damaris Moon MD on 01/08/2025 at 15:41 Approved by: Damaris Moon MD on 01/08/2025 at 15:42 Normal [facility] Low Dose CT Lung Screeningon 12-11-[address] Lung Screening [facility] [address] [place] [address] Lung Screening MR#: [id number] Acct: [id number] Name: LILLIE HOLLAND Rep #: [id number] : 1975 F 49 From: Mendoza Reyes MD PCP: LINA Mckeon Status: REG CL Study: Low Dose CT Lung Screening Date of Exam: 12/11 Exam# [id number] Ordering Dr: Ashanti Mejía LOG HAUL OPERATOR LOG HAUL OPERATOR-C PROCEDURE: LOW DOSE CT LUNG SCREENING REASON FOR EXAM: COPD; 30 year smoking history. TECHNIQUE: Low Dose CT Lung Screening without contrast COMPARISON: None. FINDINGS: PULMONARY NODULES: (Only nodules >6mm are reported) Nodules described below are on series unless otherwise specified. Pulmonary Nodules: No concerning pulmonary nodules. Hardware:None Lymph Nodes:No mediastinal hilar or axillary lymphadenopathy. Heart and Vasculature:Normal heart size. No pericardial effusion.Thoracic aorta and pulmonary arteries have normal contours; noncontrast technique limits evaluation. Coronary Artery Calcifications: Lungs and Airways: The lungs are normally expanded and clear. Pleura:No pleural effusion. No pneumothorax. Upper Abdomen:Visualized portions of the upper abdominal viscera are unremarkable. Bones:Bone windows are unremarkable. CT/Low Dose CT Lung Screening IMPRESSION: 1. BASED ON THE ACR LUNG RADS FOR THE MOST SUSPICIOUS NODULE (IF ANY) DESCRIBED IN THIS REPORT, THE OVERALL LUNG RADS SCORE IS 1. 1 - NEGATIVE. RECOMMEND 12-MONTH SCREENING LDCT.. 2. SMOKING CESSATION COUNSELING IS RECOMMENDED IF THE PATIENT IS STILL SMOKING. 3. OTHER SIGNIFICANT FINDINGSNone. One or more dose reduction techniques were used (e.g., Automated exposure control, adjustment of the mA and/or kV according to patient size, use of iterative reconstruction technique). The following information is provided for reference:Lung-RADS 2022 Assessment Categories. Additional information involving Lung-RADS is available at www.acr.org. 0-INCOMPLETE 1-NEGATIVE:No nodules or definitely benign nodules. Complete, central, popcorn, or centric ring calcifications OR fat containing 2-BENIGN APPEARANCE (based on imaging features or indolent behavior). Juxtapleural nodule: < 10mm AND solid; smooth margins; oval, entiform, or triangular shape Solid nodule: <6mm at baseline or new< 4mm Part solid Nodule: < 6mm total mean diameter at baseline Nonsolid nodule:(GGN) < 30mm OR >=30mm stable or slowly growing Airway nodule, subsegmental at baseline, new, or stable Category 3 nodule stable or decreased in size at 6-month follow-up CT or Category 3 or 4A nodules that resolve on follow-up OR category 4B findings proven to be benign following diagnotic work up. 3 - Probably Benign (Based on imaging features or behavior) Solid Nodule: >= 6 to <8mm at baseline OR new 4 to <6mm Part-solid nodule: >= 6mm toal mean diam. with solid component <6mm at baseline OR new < 6mm total mean diam. Non-solid nodule: GGN >= 30mm at baseline or new Atypical pulmonary cyst: Growing cystic component (mean diam.) of thick-walled cyst Category 4A nodule stable or decreased in size at 3-month follow-up CT (excl.airway). 4A - Suspicious Solid nodule: >=8 to < 15mm at baseline OR growing < 8mm OR new 6 to < 8mm Part solid nodule: >= 6mm total mean diam. w/ solid component >=6mm to < 8mm at baseline OR new or growing < 4mm solid component Airway nodule, segmental or more proximal at baseline or new Atypical pulmonary cyst: Thick-walled OR multilocular at baseline OR becomes multilocular 4B - Very Suspicious Airway nodule, segmental or more proximal, and stable or growing Solid nodule: >= 15mm at baseline OR new or growing >= 8mm Part solid nodule: Solid component >= 8mm OR new or growing >= 4mm solid component Atypical pulmonary cyst: Thick-walled with growing wall thickness/nodularity OR Growing multilocular (mean diam.) OR Multilocular with increased loculation or new/increased opacity Slow-growing solid or part solid nodule w/ growth over multiple screening exams 4X - Very Suspicious Category 3 or 4 nodules with additional features that increase the suspicion for lung cancer. S - Clinically Significant or potentially significant findings (non-lung cancer) Reading Location: [id number] CC: PREETHI Mejía; LINA Mckeon Psychotherapist Social Worker: Signed Normal [facility] Pulmonary Visit Reporton Pulmonary Visit Report [facility] of [address] [place] [address] OFFICE VISIT Date of Service: 08/28/24 MR#: [id number] Acct: [id number] Name: HEATHERLILLIE CECILE Rep #: [id number] : 1975 Provider: PREETIH Mejía Age/Sex: 48/F [place] [facility] Status: Signed Assessment and Plan Assessment and Plan (1) Asthma-COPD overlap syndrome: Status: Chronic Plan: Stable, she does not appear to be an exacerbation of asthma/COPD today. No need for prednisone or antibiotic. Continue current maintenance medication, continue Trelegy. No additional testing at this time, however plan to repeat pulmonary function test prior to her follow-up. Contact the office for any new or worsening symptoms. An acute visit and typically be arranged within 1-2 days. Follow-up in December 2024. (2) Nicotine dependence, cigarettes, uncomplicated: Status: Chronic Plan: Recently quit smoking. Encouraged ongoing smoking cessation. Plan for LDCT in November. Follow-up in December to discuss test results. Orders: Orders Pulmonary Function Test (Comp) 11/08/24 J44.89 - Other specified chronic obstructive pulmonary disease Plan Details Follow Up: 12/09/24 ([facility]) HPI 3 M FU Chief Complaint: Test results HPI Comments Details: This patient presents to the office today to discuss recent test results. She is ambulatory and currently on room air. She has not recently been seen in the ED or urgent care for any respiratory illness. She has not required any antibiotics or prednisone for any breathing problems. She is compliant with Trelegy 1 puff daily. She did report rinsing her mouth out after each use. She denies any side effects such as sore throat or thrush. She has not recently used albuterol, did not find it to be helpful. She does have shortness of breath on exertion. She denies any cough, hemoptysis or sputum production. She has occasional wheezing but denies any chest tightness, chest pain or palpitations. She has not had any fever, chills or body aches. She continues complete smoking cessation. If you recall, she has a greater than 48-yaen-wluj smoking history but quit completely back in November of this year. Test results personally reviewed with the patient: Methacholine inhalation challenge completed on January 24, 2024. Impression is positive bronchoprovocation challenge in a pattern consistent with borderline airway hyperresponsiveness. Intake Vital Signs 01/03/24 07:41 08/28/24 07:45 Height 5 ft 3 in 5 ft 3 in Weight: 147 lb 170 lb BMI 26.0 30.1 BP 106/72 120/75 Blood Pressure Location Lt brachial Lt brachial Position Sitting Sitting Respiration 18 18 Pulse 68 84 Pulse Source Monitor Monitor Temp 96.4 F L 96.6 F L Temperature Source Temporal Artery Temporal Artery Pulse Oximetry (%) 98 98 Oxygen Delivery Method room air room air Intake Visit Reasons: 3 M FU Chief Complaint: Shortness of breath on exertion Multimedia Developer Required: No DME Vendor: n/a Accompanied by: Self Is patient in pain?: No Allergies No Known Allergies Allergy (Verified 08/28/24 14:14) Medications ???Medication ???Instructions ???Recorded ???Confirmed ???Type albuterol sulfate 90 mcg/actuation 2 puff inhalation Q4H PRN 09/15/23 08/28/24 Rx aerosol inhaler shortness of breath or wheezing #8.5 grams cholecalciferol (vitamin D3) 250 250 mcg PO QWEEK 09/15/23 08/28/24 History mcg (10,000 unit) capsule omeprazole 20 mg capsule,delayed 20 mg PO DAILY 09/15/23 08/28/24 History release inhalational spacing device (Space #1 ea 11/03/23 08/28/24 History Chamber) multivitamin with minerals-folic tab PO DAILY 01/03/24 08/28/24 History acid 0.4 mg tablet fluticasone fur. 200 mcg-umeclid 1 inh inhalation DAILY #60 ea 05/29/24 08/28/24 Rx 62.5 mcg-vilant 25 mcg inhalat.powder (Trelegy Ellipta) duloxetine 60 mg capsule,delayed 60 mg PO QDAY 08/28/24 08/28/24 History release estradiol 2 mg tablet 2 mg PO QDAY 08/28/24 08/28/24 History gabapentin 100 mg capsule 100 mg PO BID 08/28/24 08/28/24 History oxybutynin chloride 10 mg 10 mg PO QDAY 08/28/24 08/28/24 History tablet,extended release 24 hr progesterone micronized 100 mg 100 mg PO QHS 08/28/24 08/28/24 History capsule zolpidem 5 mg tablet 5 mg PO QHS PRN 08/28/24 08/28/24 History PFSH Medical History Acid reflux Abdominal pain Fatigue Anxiety Depression Heart murmur Abnormal ultrasound of breast Abnormal mammogram of left breast Sweets syndrome Tobacco dependence Moderate persistent asthma Bronchitis COPD (chronic obstructive pulmonary disease) Vasculitis Cough Surgical History ... Normal [facility] CNOVon 07-24-2024 CNOV Office Visit (OBGYWM) HOLLANDLILLIE Hoffman ([id number]) 1975 F Date Time Provider Department 07/24/24 12:45 PM LAURITA JAMISON OBGYWM During your visit today, we recorded the following information about you: Blood pressure Weight 120/70 76.2 kg Laurita Jamison, FELICITAS.LOGISTICS SUPPLY OFFICER 07/24/2024 1:32 PM Signed Lillie Holland is a 48 year old female who presents for a lab and medication follow up. HPI: Patient is here to discuss her lab results. And to evaluate how her medication is working, she was given estrace 2 mg tablet and progesterone 100 mg tablet. She has not noticed a difference with the medication. She is having breast tenderness, especially more in the mornings. 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 History Comments: Sexual Activity: Yes; Male Contraception: Tubal Ligation PAST MEDICAL HISTORY Diagnosis Date Abnormal uterine bleeding (AUB) 01/12/2017 COPD (chronic obstructive pulmonary disease) (HCC) Dysthymic disorder Depression (non-psychotic),POST Endometriosis Fibromyalgia Hot flashes 05/29/2024 Menorrhagia OAB (overactive bladder) 05/29/2024 Obstructive chronic bronchitis with exacerbation (HCC) COPD Unintended weight gain 05/29/2024 PAST SURGICAL HISTORY Procedure Laterality Date DELIVERY ONLY , low cervical 5/6/00, 07/28/07 LIGATE FALLOPIAN TUBE Bilateral PAST SURGICAL HISTORY OF 01/12/2017 Endometrial biopsy PAST SURGICAL HISTORY OF 2014 extraction of wisdom teeth PAST SURGICAL HISTORY OF 06/07/2017 RAVH/BSO per Dr Blair FAMILY HISTORY Problem Relation Age of Onset Osteoporosis Mother Alcohol/Drug Father RECOVERING ALCOHOLIC Asthma Father Diabetes Paternal Grandmother Hypertension Paternal Grandmother Breast Cancer Maternal Aunt Psychiatry Paternal Aunt COMMITTED SUICIDE Social History Tobacco Use Smoking status: Former Current packs/day: 0.50 Average packs/day: 0.5 packs/day for 17.0 years (8.5 ttl pk-yrs) Types: Cigarettes Passive exposure: Current Smokeless tobacco: Never Vaping Use Vaping status: Never Used Substance Use Topics Alcohol use: No Drug use: No Current Outpatient Medications Medication Sig DULoxetine (CYMBALTA) 60 mg capsule TAKE 1 CAPSULE BY MOUTH ONCE DAILY Oral for 30 Days zolpidem (AMBIEN) 5 mg tablet at bedtime as needed. oxybutynin ER (DITROPAN XL) 10 mg 24 hr tablet Take 1 tablet by mouth once daily. progesterone micronized (PROMETRIUM) 100 mg capsule Take 1 capsule by mouth daily at bedtime. estradiol (ESTRACE) 2 mg tablet Take 1 tablet by mouth once daily. calcium carbonate/vitamin D3 (CALCIUM 600 + D ORAL) Take by mouth. omeprazole (PRILOSEC) 20 mg capsule Take by mouth. TRELEGY ELLIPTA 200-62.5-25 mcg inhalation powder Inhale 1 Puff as instructed once daily. gabapentin (NEURONTIN) 300 mg capsule take one tb at bedtime mv-min/iron/folic/ca lcium/vitK (WOMEN'S MULTIVITAMIN ORAL) Take by mouth once daily. Docusate Sodium 100 mg tab Take by mouth twice daily. acetaminophen (TYLENOL ORAL) Take by mouth every 6 hours as needed. IBUPROFEN ORAL Take by mouth as needed. No current facility-administere d medications for this visit. Allergies As of Date: 07/24/2024 Allergen Noted Reaction BACTRIM [SULFAMETHOXAZOLE-TR IMETH*03/27/2008 GI Upset Fully Assessed 07/24/2024 REVIEW OF SYSTEMS Abdomen: No bloating, early satiety, indigestion, or increased flatulence. No abdominal pain, nausea, vomiting, diarrhea, or constipation. Bladder: No dysuria, gross hematuria, urinary frequency, urinary urgency, or incontinence. Breast: No breast lumps, nipple d/c, overlying skin changes, redness or skin retraction and +tenderness. Expanded ROS: N/A Allergies and current medication updated:Yes SENSITIVE EXAM: NA EXAM: BP 120/70 Wt 168 lb (76.2kg) LMP 01/09/2008 GENERAL: pleasant, female in no apparent distress HEENT: Normocephalic, atraumatic, mucus membranes moist, and no lesions CHEST: Normal inspiratory effort NEURO: alert and oriented x3,exam grossly non-focal EXTREMITIES: normal ASSESSMENT/PLAN: 1. Menopausal symptoms - ICD9: 627.2, ICD10: N95.1 (primary diagnosis) Notice a decrease in menopause symptoms Continue with HRT 2. OAB (overactive bladder) - ICD9: 596.51, ICD10: N32.81 Doing well with medication, no leakage or incontinence Laurita Jamison APRN.LOGISTICS SUPPLY OFFICER Medical Decision Making: Problems: Low: Stable chronic illness Risk: Low: Low risk from testing/treatment Medical Decision Making Level: 3 - Low Allergies As of Date: 07/24/2024 Noted Allergy Reaction BACTRIM (SULFAMETHOXAZOLE-TR IMETH*03/27/2008 8 - GI Upset Date Reviewed: 07/24/2024 Reviewed by: Krys Cortes MA - Fully Assessed Reason f (more content not included)... Normal [facility] CBC (INCLUDES DIFF/PLT)on Basophils (Bld) [#/Vol] 0.021 10*3/uL Normal 0-200 [facility] Comment on above: Performed By: #### 6 399, 21280, 1350 #### [facility] [address], [address] [place] [address] [employer] Operator: Zelalem Roach MD Basophils/100 WBC (Bld) 0.4 % Normal [facility] Comment on above: Performed By: #### 6 399, 16011, 5350 #### [facility] [address] , [address] [place] [address] [employer] Operator: Zelalem Roach MD Eosinophils (Bld) [#/Vol] 0.08 10*3/uL Normal 15-500 [facility] Comment on above: Performed By: #### 6 399, 31378, 0 #### [facility] [place] [address] [employer] Operator: Zelalem Roach MD Eosinophils/100 WBC (Bld) 1.5 % Normal [facility] Comment on above: Performed By: #### 6 399, 47541, 0 #### [facility] [place] [address] [employer] Operator: Zelalem Roach MD Erythrocyte distribution width (RBC) [Ratio] 12.7 % Normal 11.0-15.0 [facility] Comment on above: Performed By: #### 6 399, , 0 #### [facility] [place] [address] [employer] Operator: Zelalem Roach MD Hematocrit (Bld) [Volume fraction] 39.2 % Normal 35.0-45.0 [facility] Comment on above: Performed By: #### 6 399, , 0 #### [facility] [place] [address] [employer] Operator: Zelalem Roach MD Hemoglobin (Bld) [Mass/Vol] 12.3 g/dL Normal 11.7-15.5 [facility] Comment on above: Performed By: #### 6 399, , 0 #### [facility] [place] [address] [employer] Operator: Zelalem Roach MD Lymphocytes (Bld) [#/Vol] 1.659 10*3/uL Normal 850-3900 [facility] Comment on above: Performed By: #### 6 399, 40289, 0 #### [facility] [place] [address] [employer] Operator: Zelalem Roach MD Lymphocytes/100 WBC (Bld) 31.3 % Normal [facility] Comment on above: Performed By: #### 6 399, 07636, 0 #### [facility] [place] [address] [employer] Operator: Zelalem Roach MD MCH (RBC) [Entitic mass] 29.1 pg Normal 27.0-33.0 [facility] Comment on above: Performed By: #### 6 399, 43840, 7600 #### [facility] [place] [address] [employer] Operator: Zelalem Roach MD MCHC (RBC) [Mass/Vol] 31.4 g/dL Low 32.0-36.[address] [facility] Comment on above: Performed By: #### 6 399, 37130, 0 #### [facility] [place] [address] [employer] Operator: Zelalem Roach MD MCV (RBC) [Entitic vol] 92.9 fL Normal 80.0-100.0 [facility] Comment on above: Performed By: #### 6 399, 49290, 0 #### [facility] [place] [address] [employer] Operator: Zelalem Roach MD Monocytes (Bld) [#/Vol] 0.408 10*3/uL Normal 200-950 [facility] Comment on above: Performed By: #### 6 399, 01498, 0 #### [facility] [place] [address] [employer] Operator: Zelalem Roach MD Monocytes/100 WBC (Bld) 7.7 % Normal [facility] Comment on above: Performed By: #### 6 399, 75738, 7600 #### [facility] [place] [address] [employer] Operator: Zelalem Roach MD Neutrophils (Bld) [#/Vol] 3.132 10*3/uL Normal 0812-0049 [facility] Comment on above: Performed By: #### 6 399, 07606, 7600 #### [facility] of [place] [id number] [employer] Operator: Zelalem Roach MD Neutrophils/100 WBC (Bld) 59.1 % Normal [facility] Comment on above: Performed By: #### 6 399, 25891, 7600 #### [facility] of [address], [address] [place] [address] [employer] Operator: Zelalem Roach MD Platelet mean volume (Bld) [Entitic vol] 10.4 fL Normal 7.5-12.5 [facility] Comment on above: Performed By: #### 6 399, 34637, 0 #### [facility] of [address], [address] [place] [address] [employer] Operator: Zelalem Roach MD Platelets (Bld) [#/Vol] 282 10*3/uL Normal 140-400 [facility] Comment on above: Performed By: #### 6 399, 54277, 0 #### [facility] of [address], [address] [place] [address] [employer] Operator: Zelalem Roach MD RBC (Bld) [#/Vol] 4.22 10*6/uL Normal 3.80-5.10 [facility] Comment on above: Performed By: #### 6 399, 24061, 0 #### [facility] of [address], [address] [place] [address] [employer] Operator: Zelalem Roach MD WBC (Bld) [#/Vol] 5.3 10*3/uL Normal 3.8-10.8 [facility] Comment on above: Performed By: #### 6 399, 44910, 0 #### [facility] of [address], [address] [place] [address] [employer] Operator: Zelalem Roach MD COMPREHENSIVE METABOLIC PANE [facility] 06-24-2024 Albumin [Mass/Vol] 4.3 g/dL Normal 3.6-5.1 [facility] Comment on above: Performed By: #### 6 399, 20391, 7600 #### [facility] of [address], [address] [place] [address] [employer] Operator: Zelalem Roach MD Albumin/Globulin [Mass ratio] 1.7 {ratio} Normal 1.0-2.5 [facility] Comment on above: Performed By: #### 6 399, 24317, 7600 #### [facility] of [address], [address] [place] [address] [employer] Operator: Zelalem Roach MD ALP [Catalytic activity/Vol] 92 U/L Normal 31-125 [facility] Comment on above: Performed By: #### 6 399, 60943, 7600 #### [facility] of [address], [address] [place] [address] [employer] Operator: Zelalem Roach MD ALT [Catalytic activity/Vol] 16 U/L Normal 6-29 [facility] Comment on above: Performed By: #### 6 399, 60747, 0 #### [facility] of [address], [address] [place] [address] [employer]: Zelalem Roach MD AST [Catalytic activity/Vol] 15 U/L Normal 10-35 [facility] Comment on above: Performed By: #### 6 399, 50512, 0 #### [facility] of [address], [address] [place] [address] [employer]: Zelalem Roach MD Bilirubin [Mass/Vol] 0.4 mg/dL Normal 0.2-1.2 [facility] Comment on above: Performed By: #### 6 399, 74852, 0 #### [facility] of [place] [address] [employer]: Zelalem Roach MD BUN/CREATININE RATIO SEE NOTE: Normal 6-22 [facility] Comment on above: Result Comment: Not Reported: BUN and Creatinine are within reference range. Performed By: #### 6 399, 70243, 7600 #### [facility] of [address], [address] [place] [address] [employer]: Zelalem Roach MD Calcium [Mass/Vol] 9.5 mg/dL Normal 8.6-10.2 [facility] Comment on above: Performed By: #### 6 399, 09347, 0 #### [facility] of [place] [address] [employer]: Zelalem Roach MD Chloride [Moles/Vol] 98 mmol/L Normal 98-110 [facility] Comment on above: Performed By: #### 6 399, 75784, 0 #### [facility] of [place] [address] [employer]: Zelalem Roach MD CO2 [Moles/Vol] 29 mmol/L Normal 20-32 [facility] Comment on above: Performed By: #### 6 399, , 0 #### [facility] of [place] [address] [employer]: Zelalem Roach MD Creatinine [Mass/Vol] 0.60 mg/dL Normal 0.50-0.99 Pending Sale To [facility] Comment on above: Performed By: #### 6 399, , 0 #### [facility] [place] [address] [employer]: Zelalem Roach MD GFR/1.73 sq M.predicted among non-blacks MDRD (S/P/Bld) [Vol rate/Area] 110 mL/min/{1.73_m2} Normal > OR = 60 [facility] Comment on above: Performed By: #### 6 399, 57373, 0 #### [facility] of [place] [address] [employer]: Zelalem Roach MD Globulin (S) [Mass/Vol] 2.5 g/dL Normal 1.9-3.7 [facility] Comment on above: Performed By: #### 6 399, 60714, 0 #### [facility] of [place] [address] [employer]: Zelalem Roach MD Glucose [Mass/Vol] 112 mg/dL High 65-99 [facility] Comment on above: Result Comment: Fasting reference interval For someone without known diabetes, a glucose value between 100 and 125 mg/dL is consistent with prediabetes and should be confirmed with a follow-up test. Performed By: #### 6 399, 98470, 7600 #### [facility] [place] [address] [employer]: Zelalem Roach MD Potassium [Moles/Vol] 3.9 mmol/L Normal 3.5-5.3 Pending [facility] Comment on above: Performed By: #### 6 399, 55471, 7600 #### [facility] [place] [address] [employer]: Zelalem Roach MD Protein [Mass/Vol] 6.8 g/dL Normal 6.1-8.1 [facility] Comment on above: Performed By: #### 6 399, 42204, 0 #### [facility] [place] [address] [employer]: Zelalem Roach MD Sodium [Moles/Vol] 136 mmol/L Normal 135-146 [facility] Comment on above: Performed By: #### 6 399, 16763, 0 #### [facility] [place] [address] [employer]: Zelalem Roach MD Urea nitrogen [Mass/Vol] 13 mg/dL Normal 7-25 [facility] Comment on above: Performed By: #### 6 399, 78171, 7600 #### [facility] [place] [address] [employer]: Zelalem Roach MD FSH [CCL]on 06-24-2024 FSH 20.1 mIU/mL Normal See comment [facility] Comment on above: Result Comment: Refe juanita range: Follicular: 3.5-12.5 mIU/mL Ovulation: 4.7-21.5 mIU/mL Luteal: 1.7-7.7 mIU/mL Postmenopausal: 25.8-134.8 mIU/mL [facility] [address] [place] [address] Felix Nowak III, M.D. [id number] Performed By: #### 2 97955 #### [address] [address] INSULIN [CCL]on 06-24-2024 Insulin 6.5 mU/L Normal 3.0-25.0 [facility] Comment on above: Result Comment: [facility] [address] [place] [address] Felix Nowak III, M.D. [id number] Performed By: #### 2 20227 #### [address] [address] LIPID PANEL, STANDARDon 06-08 Cholesterol [Mass/Vol] 197 mg/dL Normal <200 [facility] Comment on above: Performed By: #### 6 399, 36204, 6650 #### [facility] [address], [address] [place] [id number] [employer]: Zelalem Roach MD Cholesterol in HDL [Mass/Vol] 73 mg/dL Normal > OR = 50 [facility] Comment on above: Performed By: #### 6 399, 91134, 8710 #### [facility] [place] [id number] [employer]: Zelalem Roach MD Cholesterol in LDL [Mass/Vol] 96 mg/dL Normal [facility] Comment on above: Result Comment: Refe rence range: <100 Desirable range <100 mg/dL for primary prevention; <70 mg/dL for patients with CHD or diabetic patients with > or = 2 CHD risk factors. LDL-C is now calculated using the Linda calculation, which is a validated novel method providing better accuracy than the Friedewald equation in the estimation of LDL-C. Cesario MCCALLUM et al. FREDA. 2013;310(19): 6341-7532 (http://education.[employer].[address] [employer]/faq/CZT778) Performed By: #### 6 399, 50102, 7600 #### [facility] [address], [address] [place] [address] [employer]: Zelalem Roach MD Cholesterol.total/Cho lesterol in HDL [Mass ratio] 2.7 {ratio} Normal <5.0 [facility] Comment on above: Performed By: #### 6 399, 86058, 7600 #### [facility] [address], [address] [place] [address] [employer]: Zelalem Roach MD NON HDL CHOLESTEROL 124 mg/dL (calc) Normal <130 [facility] Comment on above: Result Comment: For patients with diabetes plus 1 major ASCVD risk factor, treating to a non-HDL-C goal of <100 mg/dL (LDL-C of <70 mg/dL) is considered a therapeutic option. Performed By: #### 6 399, 77327, 7600 #### [facility] [address], [address] [place] [address] [employer]: Zelalem Roach MD Triglyceride [Mass/Vol] 179 mg/dL High <150 [facility] Comment on above: Performed By: #### 6 399, 88451, 7600 #### [facility] [place] [address] [employer]: Zelalem Roach MD CMP with eGFRon 06-23-2024 Potassium [Moles/Vol] 3.9 mmol/L Normal 3.5 - 5.3 mmol/L [facility] Comment on above: Performed By: #### 2 86456 #### [facility],[address] [place] [address] AGE 48 years Normal [facility] Comment on above: Performed By: #### 2 46596 #### [facility],[address] [place] [address] Albumin [Mass/Vol] 3.4 g/dL Normal 3.4 - 5.0 [facility] Comment on above: Performed By: #### 2 12945 #### [facility],[address] [place] [address] Albumin/Globulin [Mass ratio] 0.9 {ratio} Normal 0.9 - 1.6 [facility] Comment on above: Performed By: #### 2 71664 #### [facility],[address] [place] [address] ALK PHOS 103 U/L Normal 46 - 116 [facility] Comment on above: Performed By: #### 2 60354 #### [facility],[address] [place] [address] ALT [Catalytic activity/Vol] 26 U/L Normal 16 - 63 [facility] Comment on above: Performed By: #### 2 12784 #### [facility],[address] [place] [address] Anion gap [Moles/Vol] 11 mmol/L Normal 10 - 20 [facility] Comment on above: Performed By: #### 2 54958 #### [facility],[address] [place] [address] AST [Catalytic activity/Vol] 17 U/L Normal 13 - 39 [facility] Comment on above: Performed By: #### 2 64911 #### [facility],[address] [place] [address] B/C RATIO 19 ratio Normal 0 - 30 [facility] Comment on above: Performed By: #### 2 77770 #### [facility],[address] [place] [address] Bilirubin [Mass/Vol] 0.5 mg/dL Normal 0.2 - 1.0 [facility] Comment on above: Performed By: #### 2 90004 #### [facility],[address] [place] [address] Calcium [Mass/Vol] 9.6 mg/dL Normal 8.5 - 10.1 [facility] Comment on above: Performed By: #### 2 31147 #### [facility],[address] [place] [address] Chloride [Moles/Vol] 101 mmol/L Normal 98 - 107 [facility] Comment on above: Performed By: #### 2 71775 #### [facility],[address] [place] [address] CMP with eGFR Normal [facility] Comment on above: Result Comment: COMP REHENSIVE METABOLIC PANEL Performed By: #### 2 98590 #### [facility],[address] [place] [address] CO2 [Moles/Vol] 30.9 mmol/L Normal 21.0 - 32.0 [facility] Comment on above: Performed By: #### 2 43904 #### [facility],[address] [place] [address] Creatinine [Mass/Vol] 0.58 mg/dL Normal 0.55 - 1.02 [facility] Comment on above: Performed By: #### 2 57557 #### [facility],[address] [place] [address] GFR/1.73 sq M.predicted among non-blacks MDRD (S/P/Bld) [Vol rate/Area] mL/min/{1.73_m2} Normal 60 - 999 [facility] Comment on above: Performed By: #### 2 99474 #### [facility],[address] [place], [place] [address] Result Comment: ACCO RDING TO THE NATIONAL KIDNEY DISEASE EDUCATION PROGRAM(NKDE), A NORMAL eGFR IS A VALUE GREATER THAN OR EQUAL TO 60 ML/MIN/1.73 SQ METERS. CHRONIC KIDNEY DISEASE: <60mL/MIN/1.73 SQ METERS KIDNEY FAILURE: <15mL/MIN/1.73 SQ METERS THIS TEST SHOULD ONLY BE USED FOR PATIENTS 18 YEARS OF AGE AND OLDER. Globulin (S) [Mass/Vol] 3.6 g/dL Normal 1.5 - 3.8 [facility] Comment on above: Performed By: #### 2 49914 #### [facility],[address] [place] [address] Glucose [Mass/Vol] 96 mg/dL Normal 74 - 106 [facility] Comment on above: Performed By: #### 2 64174 #### [facility],[address] [place] [address] Protein [Mass/Vol] 7.0 g/dL Normal 6.4 - 8.2 [facility] Comment on above: Performed By: #### 2 13107 #### [facility],[address] [place] [address] Sodium [Moles/Vol] 139 mmol/L Normal 136 - 145 [facility] Comment on above: Performed By: #### 2 92783 #### [facility],[address] [place] [address] Urea nitrogen [Mass/Vol] 11 mg/dL Normal 7 - 18 [facility] Comment on above: Performed By: #### 2 58031 #### [facility],[address] [place] [address] FSH SerPl-aCncon 06-23-2024 Follitropin Qn 20.1 m[IU]/mL Normal See comment [facility] Comment on above: Order Comment: Speci men Type: BLOOD SPECIMEN Ordering Facility: [facility] Address: [address] [place], [place] [id number] Result Comment: Refe rence range: Follicular: 3.5-12.5 mIU/mL Ovulation: 4.7-21.5 mIU/mL Luteal: 1.7-7.7 mIU/mL Postmenopausal: 25.8-134.8 mIU/mL Performed By: #### 1 5067-2, 84949-3 #### [facility] CLIA [id number] [address] [place] [address] [place] HEMOGLOBIN A1C (POM)on 06-23 Glucose [Mass/Vol] 88.2 mg/dL High 0.0 - 0.0 [facility] Comment on above: Result Comment: BLDo HEMOGLOBIN A1C REFERENCE RANGESBLDo Suggested Diagnosis HbA1c(%) HbA1C (mmol/mol Diabetic >/=6.5 >/=48 Prediabetes 5.7 - 6.4 39 - 47 Normal <5.7 <39 Performed By: #### 2 17682 #### [facility],[address] [place] [address] HbA1c (Bld) [Mass fraction] 4.7 % Normal 0.0 - 6.5 [facility] Comment on above: Performed By: #### 2 09437 #### [facility],[address] [place] [address] Insulin SerPl-aCncon 024 Insulin Qn 6.5 u[IU]/mL Normal 3.0-25.0 [facility] Comment on above: Order Comment: Speci men Type: BLOOD SPECIMEN Ordering Facility: [facility] Address: [address] [place] [address] Performed By: #### 1 5067-2, 36858-3 #### [facility] CLIA [id number] [address] [place] [address] [place] LIPID PROFILEon 06-23-2024 Cholesterol [Mass/Vol] 196 mg/dL Normal 0 - 240 [facility] Comment on above: Performed By: #### 2 46564 #### [facility],[address] [place] [address] Cholesterol in HDL [Mass/Vol] 72 mg/dL High 40 - 60 [facility] Comment on above: Performed By: #### 2 93799 #### [facility],[address] [place] [address] Cholesterol in LDL [Mass/Vol] 98 mg/dL Normal 0 - 129 [facility] Comment on above: Performed By: #### 2 41832 #### [facility],[address] [place] [address] Cholesterol.total/Cho lesterol in HDL [Mass ratio] 2.7 {ratio} Normal 0.0 - 5.0 [facility] Comment on above: Performed By: #### 2 53360 #### [place] [address] Lipid 1996 panel Normal [facility] Comment on above: Result Comment: LIPI D PROFILE Performed By: #### 2 76082 #### [place] [address] Triglyceride [Mass/Vol] 131 mg/dL Normal 0 - 150 [facility] Comment on above: Performed By: #### 2 74828 #### [place] [address] Laboratory - Chemistry and C hemistry - challengeon 06-23-2024 Albumin [Mass/Vol] 4.3 g/dL Normal 3.6 - 5.1 g/dL [facility], [facility].; [employer] Albumin/Globulin [Mass ratio] 1.7 {ratio} Normal 1.0 - 2.5 [place] [employer] [facility], [facility].; [employer] ALP [Catalytic activity/Vol] 92 U/L Normal 31 - 125 U/L [facility], [facility].; [place] [employer] [facility] ALT [Catalytic activity/Vol] 16 U/L Normal 6 - 29 U/L [place] [employer] [facility], [facility].; [place] [employer]. AST [Catalytic activity/Vol] 15 U/L Normal 10 - 35 U/L [place] [employer] [facility], [facility].; [employer], [employer]. Bilirubin [Mass/Vol] 0.4 mg/dL Normal 0.2 - 1 .2 mg/dL [place] [employer] [facility], [facility].; [employer], [employer]. Calcium [Mass/Vol] 9.5 mg/dL Normal 8.6 - 10. 2 mg/dL [place] [employer] [facility], [facility].; [employer] Chloride [Moles/Vol] 98 mmol/L Normal 98 - 11 0 mmol/L [facility], [facility].; [employer], [employer]. Cholesterol [Mass/Vol] 197 mg/dL Normal [place], [facility].; [facility], [facility]. Cholesterol in HDL [Mass/Vol] 73 mg/dL Normal [facility].; [facility], [facility] Cholesterol in LDL [Mass/Vol] 96 mg/dL Normal [facility].; [facility], [facility]. CO2 [Moles/Vol] 29 mmol/L Normal 20 - 32 mmol/L [facility], [facility].; [facility], [facility] Creatinine [Mass/Vol] 0.60 mg/dL Normal 0.50 - 0.99 mg/dL [facility].; [facility], [facility]. GFR/1.73 sq M.predicted among non-blacks MDRD (S/P/Bld) [Vol rate/Area] 110 mL/min/{1.73_m2} Normal [facility], [facility] Glucose [Mass/Vol] 112 mg/dL Abnormal 65 - 99 mg/dL [facility].; [facility], [facility] Protein [Mass/Vol] 6.8 g/dL Normal 6.1 - 8.1 g/dL [facility], [facility] Sodium [Moles/Vol] 136 mmol/L Normal 135 - 146 mmol/L [facility], [facility].; [facility], [facility]. Triglyceride [Mass/Vol] 179 mg/dL Abnormal [facility]; [facility], [facility]. Urea nitrogen [Mass/Vol] 13 mg/dL Normal 7 - 25 mg/dL [facility].; [facility], [facility]. Laboratory - Hematology and Cell countson 06-23-2024 Basophils (Bld) [#/Vol] 0.021 10*3/uL Normal 0 - 200 {cells/uL} [facility], [facility].; [facility], [facility]. Basophils/100 WBC (Bld) 0.4 % Normal [facility].; [facility], [facility] Eosinophils (Bld) [#/Vol] 0.08 10*3/uL Normal 15 - 500 {cells/uL} [facility], [facility].; [facility], [facility] Eosinophils/100 WBC (Bld) 1.5 % Normal [facility], [facility]; [facility]. Erythrocyte distribution width (RBC) [Ratio] 12.7 % Normal 11.0 - 15.0 % [facility].; [facility], [facility] Hematocrit (Bld) [Volume fraction] 39.2 % Normal 35.0 - 45.0 % [facility], [facility].; [facility], [facility] Hemoglobin (Bld) [Mass/Vol] 12.3 g/dL Normal 11.7 - 15.5 g/dL [facility].; [facility], [facility] Lymphocytes (Bld) [#/Vol] 1.659 10*3/uL Normal 850 - 3900 {cells/uL} [facility].; [facility], [facility]. Lymphocytes/100 WBC (Bld) 31.3 % Normal [facility].; [facility], [facility]. MCH (RBC) [Entitic mass] 29.1 pg Normal 27.0 - 33.0 pg [facility].; [facility], [facility]. MCHC (RBC) [Mass/Vol] 31.4 g/dL Abnormal 32.0 - 36.0 g/dL [facility].; [facility], [facility]. MCV (RBC) [Entitic vol] 92.9 fL Normal 80.0 - 100.0 fL [facility].; [facility], [facility]. Monocytes (Bld) [#/Vol] 0.408 10*3/uL Normal 200 - 950 {cells/uL} [facility].; [facility], [facility]. Monocytes/100 WBC (Bld) 7.7 % Normal [facility].; [facility], [facility]. Neutrophils (Bld) [#/Vol] 3.132 10*3/uL Normal 1500 - 7800 {cells/uL} [facility].; [facility], [facility]. Neutrophils/100 WBC (Bld) 59.1 % Normal [facility].; [facility], [facility]. Platelet mean volume (Bld) [Entitic vol] 10.4 fL Normal 7.5 - 12.[address] [facility].; [facility], [facility]. Platelets (Bld) [#/Vol] 282 10*3/uL Normal 140 - 400 [facility].; [employer] [employer] RBC (Bld) [#/Vol] 4.22 10*6/uL Normal 3.80 - 5.1 0 {Million/uL} [facility] [place] [employer] [facility]. WBC (Bld) [#/Vol] 5.3 10*3/uL Normal 3.8 - 10.8 [facility] [place] [employer]. No Panel Informationon 06-23 BUN/CREATININE RATIO SEE NOTE: Normal 6 - 22 [facility].; [place] [employer] CHOL/HDLC RATIO 2.7 Normal [facility].; [place] [employer] GLOBULIN 2.5 Normal 1.9 - 3.7 [facility] [place] [employer]. NON HDL CHOLESTEROL 124 Normal [facility].; [place] [employer] [facility]. TSHon 06-23-2024 TSH Qn 0.60 m[IU]/L Normal 0.35 - 3.74 [facility] Comment on above: Performed By: #### 2 54466 #### [place] [id number] VITAMIN D, 25 HYDROXYon 06-08 VitD 38.30 ng/mL Normal 30.00 - 100 [facility] Comment on above: Result Comment: 25-O HD3 indicates both endogenous production and supplementation. 25-OHD2 is an indicator of exogenous sources, such as diet or supplementation. Therapy is based on measurement of Total 25-OHD, with levels <20 ng/mL indicative of Vitamin D deficiency, while levels between 20 ng/mL and 30 ng/mL suggest insufficiency. Optimal levels are >=30ng/mL. Vitamin D, 25-OH D3 Not Established Vitamin D, 25-OH D2 Not Established Performed By: #### 2 69948 #### [facility],[address] [place] [address] CNPNon 06-15-2024 CNPN Telephone (OB[employer]te[employer]WM) LILLIE HOLLAND ([id number]) 1975 F Date Time Provider Department 06/15/24 LAURITA JAMISON During your visit today, we recorded the following information about you: Laurita Jamison APRN.CNP 06/15/2024 3:33 PM Signed Can we contact [facility] to see if they have any labs results since 05/29. Pt was to get labs done there and I haven't receive anything. Laurita Jamison APRN.Leonor Bryant RN 06/15/2024 3:48 PM Signed Request faxed. VICK Cruz Jennifer, RN 06/16/2024 10:02 AM Signed No lab results found per [facility]. Note in patient's chart states to call after 4:00 PM. Leonor Hernandez RN Allergies As of Date: 06/15/2024 Noted Allergy Reaction BACTRIM (SULFAMETHOXAZOLE-TR IMETH*03/27/2008 8 - GI Upset Date Reviewed: 05/29/2024 Reviewed by: Angie Green LPN - Fully Assessed Reason for Visit: Results [95] Prescriptions as of 06/22/2024 - DULoxetine (CYMBALTA) 60 mg capsule TAKE 1 CAPSULE BY MOUTH ONCE DAILY Oral for 30 Days - zolpidem (AMBIEN) 5 mg tablet at bedtime as needed. - oxybutynin ER (DITROPAN XL) 10 mg 24 hr tablet Take 1 tablet by mouth once daily. - progesterone micronized (PROMETRIUM) 100 mg capsule Take 1 capsule by mouth daily at bedtime. - estradiol (ESTRACE) 2 mg tablet Take 1 tablet by mouth once daily. - calcium carbonate/vitamin D3 (CALCIUM 600 + D ORAL) Take by mouth. - omeprazole (PRILOSEC) 20 mg capsule Take by mouth. - TRELEGY ELLIPTA 200-62.5-25 mcg inhalation powder Inhale 1 Puff as instructed once daily. - gabapentin (NEURONTIN) 300 mg capsule take one tb at bedtime - mv-min/iron/folic/ca lcium/vitK (WOMEN'S MULTIVITAMIN ORAL) Take by mouth once daily. - Docusate Sodium 100 mg tab Take by mouth twice daily. - acetaminophen (TYLENOL ORAL) Take by mouth every 6 hours as needed. - IBUPROFEN ORAL Take by mouth as needed. Meds Comments as of 07/13/2007: All medications have been reviewed today /07/13/2007 Ashley Grover [facility] Problem List As Of Date 06/15/2024 Noted Resolved Supervision of other normal [Z34.80] 12/31/2006 03/27/2024 Supervision of other high-risk (V23.89*03/27/2024 Previous delivery, antepartum conditio*06/28/2007 03/27/2024 History of colonoscopy [Z98.890] 03/27/2024 Acute febrile neutrophilic dermatosis [L98.2] 03/27/2024 Chronic obstructive pulmonary disease (HCC) [J4*09/15/2023 Gastroesophageal reflux disease [K21.9] 03/27/2024 Heart murmur [R01.1] 03/27/2024 Moderate persistent asthma [J45.40] 03/27/2024 Encounter Status:Closed by LAURITA JAMISON on 06/22/24 [facility] CNOVon 05-29-2024 CNOV Office Visit (OBGYWM) LILLIE HOLLAND ([id number]) 1975 F Date Time Provider Department 05/29/24 2:00 PM LAURITA JAMISON OBGYWLonnie During your visit today, we recorded the following information about you: Blood pressure Weight 122/70 74.4 kg Laurita Jamison, FELICITAS.LOGISTICS SUPPLY OFFICER 05/29/2024 3:01 PM Signed Lillie Holland is a 48 year old female who presents for medication follow up HPI: she has not notice a difference with the estrace decreasing to hot flashes. She also is concerned about the unexplained weight gain, fatigue, and urinary urgency. 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 History Comments: Sexual Activity: Yes; Male Contraception: Tubal Ligation PAST MEDICAL HISTORY Diagnosis Date Abnormal uterine bleeding (AUB) 01/12/2017 COPD (chronic obstructive pulmonary disease) (HCC) Dysthymic disorder Depression (non-psychotic),POST Endometriosis Fibromyalgia Menorrhagia Obstructive chronic bronchitis with exacerbation (HCC) COPD PAST SURGICAL HISTORY Procedure Laterality Date DELIVERY ONLY , low cervical 03/13/00, 07/28/07 LIGATE FALLOPIAN TUBE Bilateral PAST SURGICAL HISTORY OF 01/12/2017 Endometrial biopsy PAST SURGICAL HISTORY OF 2014 extraction of wisdom teeth PAST SURGICAL HISTORY OF 06/07/2017 RAVH/BSO per Dr Blair FAMILY HISTORY Problem Relation Age of Onset Osteoporosis Mother Alcohol/Drug Father RECOVERING ALCOHOLIC Asthma Father Diabetes Paternal Grandmother Hypertension Paternal Grandmother Breast Cancer Maternal Aunt Psychiatry Paternal Aunt COMMITTED SUICIDE Social History Tobacco Use Smoking status: Former Packs/day: 0.50 Years: 17.00 Additional pack years: 0.00 Total pack years: 8.50 Types: Cigarettes Passive exposure: Current Smokeless tobacco: Never Vaping Use Vaping Use: Never used Substance Use Topics Alcohol use: No Drug use: No Current Outpatient Medications Medication Sig DULoxetine (CYMBALTA) 60 mg capsule TAKE 1 CAPSULE BY MOUTH ONCE DAILY Oral for 30 Days zolpidem (AMBIEN) 5 mg tablet at bedtime as needed. calcium carbonate/vitamin D3 (CALCIUM 600 + D ORAL) Take by mouth. omeprazole (PRILOSEC) 20 mg capsule Take by mouth. TRELEGY ELLIPTA 200-62.5-25 mcg inhalation powder Inhale 1 Puff as instructed once daily. estradiol (ESTRACE) 1 mg tablet Take 1 tablet by mouth once daily. gabapentin (NEURONTIN) 300 mg capsule take one tb at bedtime mv-min/iron/folic/ca lcium/vitK (WOMEN'S MULTIVITAMIN ORAL) Take by mouth once daily. Docusate Sodium 100 mg tab Take by mouth twice daily. acetaminophen (TYLENOL ORAL) Take by mouth every 6 hours as needed. IBUPROFEN ORAL Take by mouth as needed. No current facility-administere d medications for this visit. Allergies As of Date: 05/29/2024 Allergen Noted Reaction BACTRIM [SULFAMETHOXAZOLE-TR IMETH*03/27/2008 GI Upset Fully Assessed 05/29/2024 REVIEW OF SYSTEMS Expanded ROS: N/A Allergies and current medication updated:Yes EXAM: LMP 01/09/2008 GENERAL: pleasant, female in no apparent distress HEENT: Normocephalic, atraumatic, mucus membranes moist, and no lesions CHEST: Normal inspiratory effort NEURO: alert and oriented x3,exam grossly non-focal EXTREMITIES: normal ASSESSMENT/PLAN: 1. Unintended weight gain - ICD9: 783.1, ICD10: R63.5 (primary diagnosis) - THYROID STIMULATING HORMONE 2. OAB (overactive bladder) - ICD9: 596.51, ICD10: N32.81 - OXYBUTYNIN CHLORIDE ER 10 MG TABLET,EXTENDED RELEASE 24 HR 3. Forgetfulness - ICD9: 780.99, ICD10: R68.89 4. Hot flashes - ICD9: 782.62, ICD10: R23.2 - FOLLICLE STIMULATING HORMONE - Increased estrace to 2 mg - Prometrium 100 mg 5. Screening cholesterol level - ICD9: V77.91, ICD10: Z13.220 - LIPID PANEL BASIC 6. Screening for diabetes mellitus - ICD9: V77.1, ICD10: Z13.1 - INSULIN ASSAY BLOOD - HEMOGLOBIN A1C - COMPREHENSIVE METABOLIC PANEL 7. Screening for metabolic disorder - ICD9: V77.99, ICD10: Z13.228 - COMPREHENSIVE METABOLIC PANEL 8. Encounter for vitamin deficiency screening - ICD9: V77.99, ICD10: Z13.21 - VITAMIN D 25 HYDROXY Having labs done at [facility] Will notify patient of test results. Laurita Jamison APRN.LOGISTICS SUPPLY OFFICER Medical Decision Making: Problems: Moderate: New problem with uncertain prognosis Data: Unique test(s) ordered: 3+ Risk: Moderate: Drug management Medical Decision Making Level: 4 - Moderate . Allergies As of Date: 05/29/2024 Noted Allergy Reaction BACTRIM (SULFAMETHOXAZOLE-TR IMETH*03/27/2008 8 - GI Upset Date Reviewed: 05/29/2024 Reviewed by: Angie Green LPN - Fully Assessed Reason for Visit: Follow Up [171] Weight Management [3933] Primary Visit Diagnosis:Unintended weight gain [ (more content not included)... Normal [facility] 3D MAMM BILAT SCREENon 05-22 3D MAMM BILAT SCREEN [place] [address] Patient: LILLIE HOLLAND Phone#: : 1975 Age: 48 Gender: F Pt. Type: Out Account: [id number] Location: [facility] Ordering: LEONORA SALDIVAR Exam Date: 05/22/2024/14:24 Family Phys: Charge Code: [id number] Physician: [place] Order #: [id number] Dose#: PROCEDURE: BILATERAL SCREENING BREAST TOMOSYNTHESIS MAMMOGRAM WITH CAD COMPARISON: [facility], BILAT SCREENING, 12/09/2018, 9:25. [facility], 3D BILAT SCREEN, 05/21/2023, 14:15. INDICATIONS: SCREENING BREAST COMPOSITION: Heterogeneously dense, which may obscure small masses. FINDINGS: DIAGNOSTIC CATEGORY 1--NEGATIVE: RIGHT BREAST: No significant suspicious finding. No significant change has occurred. LEFT BREAST: No significant suspicious finding. No significant change has occurred. Biopsy marker clip in the left upper outer quadrant. RECOMMENDATIONS: ROUTINE MAMMOGRAM AND CLINICAL EVALUATION IN 12 MONTHS. PLEASE NOTE: A NORMAL MAMMOGRAM DOES NOT EXCLUDE THE POSSIBILITY OF BREAST CANCER. A CLINICALLY SUSPICIOUS PALPABLE LUMP SHOULD BE BIOPSIED. THIS FACILITY UTILIZES A REMINDER SYSTEM TO ENSURE THAT ALL PATIENTS RECEIVE REMINDER LETTERS FOR APPOINTMENTS. THIS INCLUDES REMINDERS FOR ROUTINE MAMMOGRAMS, DIAGNOSITC MAMMOGRAMS, OR OTHER BREAST IMAGING INTERVENTIONS WHEN APPROPRIATE. THIS PATIENT WILL BE PLACED IN THE APPROPRIATE REMINDER SYSTEM. Dictated by: Michelle Boston MD on 05/22/2024 at 16:33 Approved by: Michelle Boston MD on 05/22/2024 at 16:44 [facility] CNOVon 03-27-2024 CNOV Office Visit (OBGYWM) LILLIE HOLLAND ([id number]) 1975 F Date Time Provider Department 03/27/24 10:30 AM LAURITA JAMISON OBGYWM During your visit today, we recorded the following information about you: Blood pressure Weight Height 138/80 71 kg 1.6 m Laurita Jamison APRN.[facility] 03/27/2024 11:43 AM Signed General Manager Road Production offered: Patient declinesDmitriy Moreira is a 48 year old who presents for an annual gynecologic exam with complaints, menopausal symptoms and bladder issues . 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: Sexual Activity: Yes; Male Contraception: Tubal Ligation PAST MEDICAL HISTORY Diagnosis Date Abnormal uterine bleeding (AUB) 01/12/2017 COPD (chronic obstructive pulmonary disease) ([facility]) Dysthymic disorder Depression (non-psychotic),POST Endometriosis Fibromyalgia Menorrhagia Obstructive chronic bronchitis with exacerbation ([facility]) COPD PAST SURGICAL HISTORY Procedure Laterality Date DELIVERY ONLY , low cervical 03/13/00, 07/28/07 LIGATE FALLOPIAN TUBE Bilateral PAST SURGICAL HISTORY OF 01/12/2017 Endometrial biopsy PAST SURGICAL HISTORY OF 2014 extraction of wisdom teeth PAST SURGICAL HISTORY OF 06/07/2017 TAYLORH/BSO per Dr Blair FAMILY HISTORY Problem Relation Age of Onset Osteoporosis Mother Alcohol/Drug Father RECOVERING ALCOHOLIC Asthma Father Diabetes Paternal Grandmother Hypertension Paternal Grandmother Breast Cancer Maternal Aunt Psychiatry Paternal Aunt COMMITTED SUICIDE SOCIAL HISTORY Social History Tobacco Use Smoking status: Former Packs/day: 0.50 Years: 17.00 Additional pack years: 0.00 Total pack years: 8.50 Types: Cigarettes Passive exposure: Current Smokeless tobacco: Never Vaping Use Vaping Use: Never used Substance Use Topics Alcohol use: No Drug use: No REVIEW OF SYSTEMS Abdomen: No abdominal pain, nausea, vomiting, diarrhea, or constipation. No bloating, early satiety, indigestion, or increased flatulence. Bladder: No dysuria, gross hematuria, urinary frequency, +urinary urgency, +incontinence. Breast: No breast lumps, nipple d/c, overlying skin changes, redness or skin retraction. Allergies and current medication updated:Yes EXAM: Ht 5' 3 (1.60m) Wt 156 lb 9.6 oz (71.0kg) LMP 01/09/2008 BMI 27.75 kg/(m2). GENERAL: pleasant, female in no apparent distress HEENT: Normocephalic, atraumatic, mucus membranes moist, and no lesions NECK: Supple, full range of motion, no adenopathy, and thyroid normal DERMATOLOGY: Normal, without lesions, non-icteric, and non-hirsute BREAST: soft, non-tender, symmetric, no dominant mass, normal nipple-areolar complex, no lymphadenopathy, and no nipple discharge CHEST: Normal inspiratory effort ABDOMEN: soft, non-tender, and no masses PELVIC: external genitalia normal, normal Bartholin's glands, urethra, Buncombe's glands, no vulvar lesions, good vaginal support, physiologic discharge present, normal appearing perineal body and perianal region, cervix surgically absent BIMANUAL: no adnexal masses, non-tender, and uterus surgically absent RECTOVAGINAL: deferred. NEURO: alert and oriented x3,exam grossly non-focal EXTREMITIES: normal ASSESSMENT/PLAN: 1. Encounter for gynecological examination (general) (routine) without abnormal findings - ICD9: V72.31, ICD10: Z01.419 (primary diagnosis) - Completed pelvic and breast exam - Encouraged monthly BSE - Follow up for annual exam in one year. 2. Hot flashes - ICD9: 782.62, ICD10: R23.2 Follow up in 5-6 weeks - ESTRADIOL 1 MG TABLET Currently not smoking 3. Encounter for screening mammogram for malignant neoplasm of breast - ICD9: V76.12, ICD10: Z12.31 - order give for [facility] Laurita Jamison APRN.CNP Allergies As of Date: 03/27/2024 Noted Allergy Reaction BACTRIM (SULFAMETHOXAZOLE-TR IMETH*03/27/2008 8 - GI Upset Date Reviewed: 03/27/2024 Reviewed by: Laurita Jamison APRN.CNP - Fully Assessed Reason for Visit: Yearly Exam [187] Primary Visit Diagnosis:Encounter for gynecological examination (general) (routine) without abnormal findings [Z01.419] Other Visit Diagnoses:Hot flashes [R23.2] Encounter for screening mammogram for malignant neoplasm of breast [Z12.31] Order(s):estradiol (ESTRACE) 1 mg tabletTake 1 tablet by mouth once daily.Disp: 30 tabletRfl: 1 Prescriptions as of 03/27/2024 - calcium carbonate/vitamin D3 (CALCIUM 600 + D ORAL) Take by mouth. - omeprazole (PRILOSEC) 20 m (more content not included)... Normal [facility] ANAon 07-08-2023 ANTI-NUCLEAR ANTIBODY (LOLITA) <1:40 Normal <1:40 [facility] Comment on above: Performed By: #### 4 [id number], [id number] #### [address] C-REACTIVE PROTEIN (INFLAMMA TORY)on 07-08-2023 CRP [Mass/Vol] mg/L Normal <=9.9 [facility] Comment on above: Performed By: #### 4 [id number], [id number], [id number], [id number], [id number], [id number], [id number] #### [address] [address] CBC AND DIFFERENTIALon 07-08 ABSOLUTE BASOPHIL 0.0 x10*3/uL Normal 0.0-0.1 [facility] Comment on above: Performed By: #### 4 [id number], [id number] #### [place] [address] [place] [address] [place] ABSOLUTE EOSINOPHIL 0.1 x10*3/uL Normal 0.1-0.3 [facility] Comment on above: Performed By: #### 4 [id number], [id number] #### [address] ABSOLUTE IMMATURE GRANULOCYTES 0.0 x10*3/uL Normal 0.0-0.1 [facility] Comment on above: Performed By: #### 4 [id number], [id number] #### [address] ABSOLUTE LYMPH 1.5 x10*3/uL Normal 1.2-3.3 [facility] Comment on above: Performed By: #### 4 [id number], [id number] #### [address] ABSOLUTE MONO 0.4 x10*3/uL Normal 0.2-0.6 [facility] Comment on above: Performed By: #### 4 [id number], [id number] #### [address] ABSOLUTE NEUTROPHIL 5.1 x10*3/uL Normal 2.4-6.6 [facility] Comment on above: Performed By: #### 4 [id number], [id number] #### [address] Basophils/100 WBC (Bld) 0.3 % Normal [facility] Comment on above: Performed By: #### 4 [id number], [id number] #### [address] Eosinophils/100 WBC (Bld) 1.3 % Normal [facility] Comment on above: Performed By: #### 4 [id number], [id number] #### [address] Erythrocyte distribution width (RBC) [Ratio] 12.3 % Normal 11.5-14.5 [facility] Comment on above: Performed By: #### 4 [id number], [id number] #### [address] Hematocrit (Bld) [Volume fraction] 42.4 % Normal 33.6-46.8 [facility] Comment on above: Performed By: #### 4 [id number], [id number] #### [address] Hemoglobin (Bld) [Mass/Vol] 13.6 g/dL Normal 11.7-15.8 [facility] Comment on above: Performed By: #### 4 [id number], [id number] #### [address] Immature granulocytes/100 WBC (Bld) 0.3 % Normal [facility] Comment on above: Performed By: #### 4 [id number], [id number] #### [address] Lymphocytes/100 WBC (Bld) 21.1 % Normal [facility] Comment on above: Performed By: #### 4 [id number], [id number] #### [address] MCH (RBC) [Entitic mass] 29.3 pg Normal 27.5-32.3 [facility] Comment on above: Performed By: #### 4 [id number], [id number] #### [address] MCHC (RBC) [Mass/Vol] 32.1 g/dL Normal 30.7-35.5 [facility] Comment on above: Performed By: #### 4 [id number], [id number] #### [address] MCV (RBC) [Entitic vol] 91.4 fL Normal 80.2-99 [facility] Comment on above: Performed By: #### 4 [id number], [id number] #### [address] Monocytes/100 WBC (Bld) 5.7 % Normal [facility] Comment on above: Performed By: #### 4 [id number], [id number] #### [address] Neutrophils/100 WBC (Bld) 71.3 % Normal [facility] Comment on above: Performed By: #### 4 [id number], [id number] #### [address] NUCLEATED RED BLOOD CELLS AUTO 0.0 % Normal 0.0-1.0 [facility] Comment on above: Performed By: #### 4 [id number], [id number] #### [address] PLATELET COUNT 224 x10*3/uL Normal 150-400 [facility] Comment on above: Performed By: #### 4 [id number], [id number] #### [address] RED BLOOD CELL COUNT 4.64 x10*6/uL Normal 3.60-5.20 [facility] Comment on above: Performed By: #### 4 [id number], [id number] #### [address] WHITE BLOOD CELLS 7.2 x10*3/uL Normal 4.3-10.3 [facility] Comment on above: Performed By: #### 4 [id number], [id number] #### [address] CCP ANTIBODIES IGG/IGAon CCP IGG/IGA ABS 5 units Normal 0-19 [facility] Comment on above: Order Comment: Perfo rmed at: 01 - [facility] [place] [address] Collections Manager: Martin Fam PhD, Phone: [phone] Result Comment: Nega tive <20 Weak positive 20 - 39 Moderate positive 40 - 59 Strong positive >59 Performed By: #### 4 [id number] #### [facility] [address] [place] [address] CKon 07-08-2023 CK [Catalytic activity/Vol] 39 U/L Normal 0-164 [facility] Comment on above: Performed By: #### 4 [id number], [id number], 16602485, 35135049, 30332956, 82077623, 07784809 #### [address] CREATININE, SERUMon 07-08-20 23 Creatinine [Mass/Vol] 0.59 mg/dL Normal 0.52-1.04 [facility] Comment on above: Performed By: #### 4 [id number], [id number], [id number], 37377937, 75240459, [id number], [id number] #### [address] GLOMERULAR FILTRATION RATE ML/MIN/1.73 SQ M.PREDICTED >90.0 Normal >=60.0 [facility] Comment on above: Result Comment: eGFR calculation based on the Chronic Kidney Disease Epidemiology Collaboration (CKD-EPI) equation refit without adjustment for race. Categories in Chronic Kidney Disease (CKD) Category: GFR(mL/min/1.73m^2) Interpretation: G1* 90 or greater Normal or high G2* 60-89 Mild decrease G3a 45-59 Mild to moderate decrease G3b 30-44 Moderate to severe decrease G4 15-29 Severe decrease G5 14 or less Kidney failure *G1&G2: In the absence of evidence of kidney damage, neither GFR category G1 nor G2 fulfill the criteria for CKD Kidney Int Suppl.2013;3:1-150 Performed By: #### 4 [id number], [id number], 44757400, 71470098, 78029938, 52099305, 29983641 #### [address] RHEUMATOID FACTORon 07-08-20 23 RHEUMATOID FACTOR <8.6 Normal <=12.0 [facility] Comment on above: Performed By: #### 4 [id number], [id number], 10464625, 80137271, 12543257, 61076624, 81512719 #### [address] SEDIMENTATION RATEon 023 SED RATE 5 mm/hr Normal 0-20 [facility] Comment on above: Performed By: #### 4 [id number], [id number] #### [address] TSHon 07-08-2023 TSH 1.310 uIU/mL Normal 0.465-4.680 [facility] Comment on above: Performed By: #### 4 [id number], 18561147, 48284503, 54786482, 10769748, 20150048, [id number] #### [address] VITAMIN B12on 07-08-2023 Cobalamin (Vitamin B12) [Mass/Vol] 612 pg/mL Normal 239-931 [facility] Comment on above: Performed By: #### 4 [id number], [id number], [id number], 53621364, 57606576, 63485051, 10548947 #### [place] [address] VITAMIN D 25 HYDROXYon 07-08 VITAMIN D 25 HYDROXY 23.6 ng/mL Normal [facility] Comment on above: Result Comment: Refe rence Range: Deficiency: <20 ng/mL Insufficiency: 21-29 ng/mL Optimal Level: >=30 ng/mL Possible Toxicity: >80 ng/mL 80 ng/mL is the lowest reported level associated with toxicity in patients without primary hyperthyroidism who have normal renal function. Performed By: #### 4 [id number], [id number], [id number], 80882166, 03926846, 09043656, [id number] #### [facility] [address] Laboratory - Chemistry and C hemistry - challengeon 06-11-2023 Natriuretic peptide B (Bld) [Mass/Vol] 43 pg/mL Normal [facility], [facility]; [facility], [facility] Laboratory - Chemistry and C hemistry - challengeon 05-20-2023 Albumin [Mass/Vol] 4.6 g/dL Normal 3.6 - 5.1 g/dL [facility], [facility]; [facility], [facility] Albumin/Globulin [Mass ratio] 1.8 {ratio} Normal 1.0 - 2.5 [facility], [facility]; [facility], [facility] ALP [Catalytic activity/Vol] 111 U/L Normal 31 - 125 U/L [facility], [facility]; [facility], [facility]. ALT [Catalytic activity/Vol] 13 U/L Normal 6 - 29 U/L [facility], [facility].; [facility], [facility]. AST [Catalytic activity/Vol] 14 U/L Normal 10 - 35 U/L [facility], [facility].; [facility], [facility] Bilirubin [Mass/Vol] 0.5 mg/dL Normal 0.2 - 1 .2 mg/dL [facility], [facility]; [facility] Calcium [Mass/Vol] 9.5 mg/dL Normal 8.6 - 10. 2 mg/dL [facility], [facility].; [facility], [facility]. Chloride [Moles/Vol] 104 mmol/L Normal 98 - 11 0 mmol/L [facility], [facility].; [facility], [facility]. Cholesterol [Mass/Vol] 236 mg/dL Abnormal [facility], [facility].; [facility], [facility]. Cholesterol in HDL [Mass/Vol] 63 mg/dL Normal [facility].; [facility], [facility]. Cholesterol in LDL [Mass/Vol] 131 mg/dL Abnormal [facility], [facility].; [facility], [facility]. CO2 [Moles/Vol] 26 mmol/L Normal 20 - 32 mmol/L [facility].; [facility], [facility]. Creatinine [Mass/Vol] 0.53 mg/dL Normal 0.50 - 0.99 mg/dL [facility], [facility].; [facility], [facility]. GFR/1.73 sq M.predicted among non-blacks MDRD (S/P/Bld) [Vol rate/Area] 114 mL/min/{1.73_m2} Normal [facility].; [facility], [facility]. Glucose [Mass/Vol] 93 mg/dL Normal 65 - 99 mg/dL [facility].; [facility], [facility]. Potassium [Moles/Vol] 4.2 mmol/L Normal 3.5 - 5.3 mmol/L [facility], [facility].; [facility], [facility]. Protein [Mass/Vol] 7.1 g/dL Normal 6.1 - 8.1 g/dL [facility], [facility]. Sodium [Moles/Vol] 138 mmol/L Normal 135 - 146 mmol/L [facility], [facility].; [facility], [facility]. Triglyceride [Mass/Vol] 294 mg/dL Abnormal [facility], [facility].; [facility], [facility]. Urea nitrogen [Mass/Vol] 16 mg/dL Normal 7 - 25 mg/dL [facility], [facility].; [facility], [facility] No Panel Informationon 05-20 BUN/CREATININE RATIO NOT APPLICABLE Normal 6 - 22 [facility].; [facility], [facility]. CHOL/HDLC RATIO 3.7 Normal [facility].; [facility]. GLOBULIN 2.5 Normal 1.9 - 3.7 [facility].; [facility], [facility]. NON HDL CHOLESTEROL 173 Abnormal [facility].; [facility]. Laboratoryon 06-19-2019 A. alternata IgE RAST class (S) 0 Normal [facility].; [facility]. Laboratory - Allergyon 06-19 A. alternata IgE Qn (S) <0.10 Normal [facility].; [facility]. A. fumigatus IgE Qn (S) <0.10 Normal [facility].; [facility], [facility]. A. fumigatus IgE RAST class (S) 0 Normal [facility].; [facility], [facility]. Canadian house dust mite IgE Qn (S) <0.10 Normal [facility].; [facility], [facility]. Canadian house dust mite IgE RAST class (S) 0 Normal [facility].; [facility], [facility]. [place] grass IgE Qn (S) <0.10 Normal [facility].; [facility], [facility]. [place] grass IgE RAST class (S) 0 Normal [facility].; [facility]. Boxelder IgE Qn (S) <0.10 Normal [facility].; [facility], [facility]. Boxelder IgE RAST class (S) 0 Normal [facility].; [facility], [facility]. C. herbarum IgE Qn (S) <0.10 Normal [facility].; [facility], [facility]. C. herbarum IgE RAST class (S) 0 Normal [facility].; [facility], [facility]. [place] Pollen IgE Qn (S) <0.10 Normal [facility].; [facility], [facility]. [place] Pollen IgE RAST class (S) 0 Normal [facility] Cat dander IgE Qn (S) <0.10 Normal [facility] Cat dander IgE RAST class (S) 0 Normal [facility] Cockroach IgE Qn (S) <0.10 Normal [facility] [facility] Cockroach IgE RAST class (S) 0 Normal [facility], [facility] Common Pigweed IgE Qn (S) <0.10 Normal [facility] Common Pigweed IgE RAST class (S) 0 Normal [facility] Common Ragweed IgE Qn (S) <0.10 Normal [facility], [facility] Common Ragweed IgE RAST class (S) 0 Normal [facility] Surry IgE Qn (S) <0.10 Normal [facility], [facility] Surry IgE RAST class (S) 0 Normal [facility] Dog dander IgE Qn (S) <0.10 Normal [facility] Dog dander IgE RAST class (S) 0 Normal [facility] house dust mite IgE Qn (S) <0.10 Normal [facility] house dust mite IgE RAST class (S) 0 Normal [facility] [place] IgE Qn (S) <0.10 Normal [facility] [place] IgE RAST class (S) 0 Normal [facility] Mountain Juniper IgE Qn (S) <0.10 Normal [facility], [facility] Mountain Juniper IgE RAST class (S) 0 Normal [facility], [facility].; [facility] Mouse urine proteins IgE Qn (S) <0.10 Normal [facility], [facility].; [facility] Mouse urine proteins IgE RAST class (S) 0 Normal [facility], [facility].; [facility] P. notatum IgE Qn (S) <0.10 Normal [facility].; [facility] P. notatum IgE RAST class (S) 0 Normal [facility], [facility].; [facility], [facility]. Pecan or [place] Tree IgE Qn (S) <0.10 Normal [facility], [facility].; [facility], [facility]. Pec[place] or [place] Tree IgE RAST class (S) 0 Normal [facility], [facility].; [facility], [facility]. Saltwort IgE Qn (S) <0.10 Normal [facility], [facility].; [facility], [facility]. Saltwort IgE RAST class (S) 0 Normal [facility], [facility].; [facility], [facility]. Sheep Landover IgE Qn (S) <0.10 Normal [facility], [facility].; [facility], [facility]. Sheep [place] IgE RAST class (S) 0 Normal [facility], [facility].; [facility] Silver Birch IgE Qn (S) <0.10 Normal [facility], [facility].; [facility], [facility]. Silver Birch IgE RAST class (S) 0 Normal [facility], [facility].; [facility] En IgE Qn (S) <0.10 Normal [facility], [facility].; [facility] En IgE RAST class (S) 0 Normal [facility], [facility].; [facility] White Andrew IgE Qn (S) <0.10 Normal [facility] White Andrew IgE RAST class (S) 0 Normal [facility] White Elm IgE Qn (S) <0.10 Normal [facility], [employer] [facility] White Elm IgE RAST class (S) 0 Normal [facility].; [place] [employer] [facility]. White mulberry IgE Qn (S) <0.10 Normal [facility].; [facility], [facility]. White mulberry IgE RAST class (S) 0 Normal [facility].; [place] [employer], [facility]. Burbank IgE Qn (S) <0.10 Normal [facility].; [place] [employer], [facility]. Burbank IgE RAST class (S) 0 Normal [facility].; [place] [employer] [facility], [facility]. Laboratory - Chemistry and C hemistry - challengeon 06-19-2019 IgE Qn 17 {KU/L} Normal [facility].; [facility], [facility]. Laboratory - Chemistry and C hemistry - challengeon 11-29-2018 Albumin [Mass/Vol] 4.2 g/dL Normal 3.6 - 5.1 g/dL [facility].; [facility], [facility]. Albumin/Globulin [Mass ratio] 1.9 {ratio} Normal 1.0 - 2.5 [facility].; [place] [employer] [facility]. ALP [Catalytic activity/Vol] 101 U/L Normal 33 - 115 U/L [facility].; [place] [employer] [facility], [facility]. ALT [Catalytic activity/Vol] 18 U/L Normal 6 - 29 U/L [facility].; [place] [employer] [facility]. AST [Catalytic activity/Vol] 15 U/L Normal 10 - 30 U/L [facility].; [place] [employer] [facility]. Bilirubin [Mass/Vol] 0.3 mg/dL Normal 0.2 - 1 .2 mg/dL [facility].; [place] [employer], [facility]. Calcium [Mass/Vol] 9.0 mg/dL Normal 8.6 - 10. 2 mg/dL [facility].; [place] [employer] [facility], [facility]. Carcinoembryonic Ag [Mass/Vol] 0.9 ng/mL Normal 0.0 - 2.4 ng/mL [facility].; [place] [employer] [facility]. Chloride [Moles/Vol] 105 mmol/L Normal 98 - 11 0 mmol/L [facility].; [facility], [facility] CO2 [Moles/Vol] 30 mmol/L Normal 20 - 32 mmol/L [facility], [facility] Creatinine [Mass/Vol] 1.02 mg/dL Normal 0.50 - 1.10 mg/dL [facility].; [facility], [facility] GFR/1.73 sq M.predicted among blacks MDRD (S/P/Bld) [Vol rate/Area] 77 {ML/MIN/1.73M2} Normal [facility].; [facility], [facility] GFR/1.73 sq M.predicted MDRD (S/P/Bld) [Vol rate/Area] 67 {ML/MIN/1.73M2} Normal [facility], [facility].; [facility], [facility] Globulin (S) [Mass/Vol] 2.2 g/dL Normal 1.9 - 3.7 g/dL [facility].; [facility], [facility]. Glucose [Mass/Vol] 97 mg/dL Normal 65 - 99 mg/dL [facility].; [facility], [facility]. Potassium [Moles/Vol] 4.3 mmol/L Normal 3.5 - 5.3 mmol/L [facility].; [facility], [facility]. Protein [Mass/Vol] 6.4 g/dL Normal 6.1 - 8.1 g/dL [facility]; [facility], [facility] Sodium [Moles/Vol] 143 mmol/L Normal 135 - 146 mmol/L [facility], [facility].; [facility], [facility]. Urea nitrogen [Mass/Vol] 14 mg/dL Normal 7 - 25 mg/dL [facility], [facility].; [facility], [facility]. Urea nitrogen/Creatinine [Mass ratio] 13.6 mg/mg Normal 6 - 22 [facility].; [facility], [facility] Laboratory - Hematology and Cell countson 11-29-2018 Basophils (Bld) [#/Vol] 10 {Cells}/uL Normal 0 - 200 {Cells}/uL [facility].; [facility], [facility]. Basophils/100 WBC (Bld) 0 % Normal 0 - 1 % [facility].; [facility], [facility] Eosinophils (Bld) [#/Vol] 110 {Cells}/uL Normal 15 - 500 {Cells}/uL [facility].; [facility], [facility] Eosinophils/100 WBC (Bld) 2 % Normal 0 - 4 % [facility].; [facility], [facility] Erythrocyte distribution width (RBC) [Ratio] 13.4 % Normal 11.0 - 15.0 % [facility], [facility].; [facility], [facility] ESR (Bld) [Velocity] 9 mm/h Normal 0 - 20 mm/h [facility].; [facility], [facility] Hematocrit (Bld) [Volume fraction] 40.1 % Normal 35.0 - 45.0 % [facility], [facility].; [facility], [facility] Hemoglobin (Bld) [Mass/Vol] 13.2 g/dL Normal 11.7 - 15.5 g/dL [facility].; [facility], [facility]. Lymphocytes (Bld) [#/Vol] 1380 {Cells}/uL Normal 850 - 3900 {Cells}/uL [facility].; [facility], [facility]. Lymphocytes/100 WBC (Bld) 24 % Normal 12 - 47 % [facility], [facility].; [facility], [facility]. MCH (RBC) [Entitic mass] 29.6 pg Normal 27.0 - 33.0 PG [facility].; [facility], [facility]. MCHC (RBC) [Mass/Vol] 33.0 g/dL Normal 32.0 - 36.0 g/dL [facility], [facility].; [facility], [facility]. MCV (RBC) [Entitic vol] 89.7 fL Normal 80.0 - 100.0 fL [facility].; [facility], [facility]. Monocytes (Bld) [#/Vol] 390 {Cells}/uL Normal 200 - 950 {Cells}/uL [facility], [facility].; [facility] [employer], [facility]. Monocytes/100 WBC (Bld) 7 % Normal 4 - 12 % [facility].; [place] [employer], [employer] Neutrophils (Bld) [#/Vol] 3990 {Cells}/uL Normal 1500 - 7800 {Cells}/uL [facility] [employer] [facility].; [place] [employer], [employer] Neutrophils/100 WBC (Bld) 67 % Normal 40 - 75 % [place] [employer], [employer].; [employer], [employer] Platelet mean volume (Bld) [Entitic vol] 9.8 fL Normal 7.5 - 12.[address] [facility] [place], [facility].; [place] [employer], [employer] Platelets (Bld) [#/Vol] 261 10*3/uL Normal 140 - 400 10*3/uL [facility], [facility].; [place] [employer], [employer] RBC (Bld) [#/Vol] 4.47 10*6/uL Normal 3.80 - 5.1 0 10*6/uL [facility], [facility].; [place] [employer], [employer] WBC (Bld) [#/Vol] 5.9 10*3/uL Normal 3.8 - 10.8 10*3/uL [facility], [facility].; [employer], [facility]. Laboratory - Hematology and Cell countson 05-27-2018 Basophils (Bld) [#/Vol] 0.00 {3/UL} Normal 0.00 - 0.10 {3/UL} [facility], [facility].; [place] [employer] Basophils/100 WBC (Bld) 0.3 % Normal 0.0 - 2.0 % [facility] [employer] [facility].; [employer], [employer] CBC W Auto Differential panel (Bld) CBC Normal [facility] [employer] [facility].; [employer], [employer] Eosinophils (Bld) [#/Vol] 0.10 {3/UL} Normal 0.00 - 0.50 {3/UL} [place] [employer], [employer] [place] [employer], [employer] Eosinophils/100 WBC (Bld) 1.4 % Normal 0.0 - 7.0 % [facility], [facility].; [employer], [employer] Erythrocyte distribution width (RBC) [Ratio] 12.6 % Normal 12.0 - 15.6 % [place] [employer].; [employer], [employer] ESR (Bld) [Velocity] 8 mm/h Normal 0 - 30 mm/h [facility].; [facility], [facility] Hematocrit (Bld) [Volume fraction] 40.9 % Normal 34.0 - 46.0 % [facility], [facility].; [facility], [facility] Hemoglobin (Bld) [Mass/Vol] 13.7 g/dL Normal 12.0 - 16.0 g/dL [facility], [facility].; [facility], [facility] Lymphocytes (Bld) [#/Vol] 2.30 {3/UL} Normal 0.80 - 2.80 {3/UL} [facility], [facility].; [facility], [facility]. Lymphocytes/100 WBC (Bld) 23.7 % Normal 20.0 - 45.0 % [facility], [facility].; [place] [employer], [facility]. MCH (RBC) [Entitic mass] 31 pg Normal 27 - 33 pg [facility].; [facility], [facility]. MCHC (RBC) [Mass/Vol] 34 {X10_3} Normal 32 - 3 6 {X10_3} [facility], [facility].; [place] [employer], [facility]. MCV (RBC) [Entitic vol] 91 fL Normal 80 - 99 fL [facility].; [place] [employer] [facility], [facility]. Monocytes (Bld) [#/Vol] 0.60 {3/UL} Normal 0.20 - 1.00 {3/UL} [facility], [facility].; [place] [employer], [facility]. Monocytes/100 WBC (Bld) 6.5 % Normal 0.0 - 10.0 % [facility].; [place] [employer], [facility]. Morphology Gordon (Bld) [Interp] N/A Normal [facility].; [place] [employer], [facility]. Neutrophils (Bld) [#/Vol] 6.50 {3/UL} Normal 1.50 - 7.10 {3/UL} [facility], [facility].; [place] [employer], [facility]. Neutrophils/100 WBC (Bld) 68.1 % Normal 46.0 - 76.0 % [facility], [facility].; [place] [employer], [facility]. Platelet mean volume (Bld) [Entitic vol] 9.9 fL Normal 6.6 - 10.[address] [facility].; [place] [employer]. Platelets (Bld) [#/Vol] 232 {3/UL} Normal 150 - 450 {3/UL} [facility].; [place] [employer]. RBC (Bld) [#/Vol] 4.50 {6/UL} Normal 4.10 - 5.3 0 {6/UL} [facility] [place] [employer]. WBC (Bld) [#/Vol] 9.6 {3/UL} Normal 4.5 - 10.8 {3/UL} [facility] [employer]. Laboratory - Serology - non- microon 05-27-2018 Nuclear Ab IA Ql (S) LOLITA WITH REFLEX TO TITER AND PATTERN[QU] Normal [facility] [employer] [facility].; [employer] No Panel Informationon 05-27 MANUAL DIFF N/A Normal [facility].; [employer]. Laboratory - Chemistry and C hemistry - challengeon 02-10-2017 Anion gap [Moles/Vol] 10 mmol/L Normal 10 - 20 mmol/L [facility].; [employer]. Basic metabolic 2000 panel BMP with eGFR Normal [facility] [employer], [employer]. Calcium [Mass/Vol] 9.4 mg/dL Normal 8.6 - 10. 2 mg/dL [facility] [employer] [facility].; [employer], [employer]. Chloride [Moles/Vol] 102 mmol/L Normal 98 - 10 7 mmol/L [facility] [employer].; [employer], [employer]. CO2 [Moles/Vol] 31.0 mmol/L Normal 21.0 - 31.0 mmol/L [facility] [employer], [employer]. Creatinine [Mass/Vol] 0.6 mg/dL Normal 0.6 - 1.2 mg/dL [facility].; [employer], [employer]. GFR/1.73 sq M.predicted among blacks MDRD (S/P/Bld) [Vol rate/Area] mL/min/{1.73_m2} Normal 60 - 999 {ML/MINUTE} [facility] [place] [employer], [employer]. GFR/1.73 sq M.predicted MDRD (S/P/Bld) [Vol rate/Area] mL/min/{1.73_m2} Normal 60 - 999 {ML/MINUTE} [facility], [employer].; [place] [employer], [employer]. Glucose [Mass/Vol] 70 mg/dL Abnormal 74 - 106 mg/dL [facility].; [place] [employer] [facility], [employer]. Potassium [Moles/Vol] 3.8 mmol/L Normal 3.5 - 5.1 mmol/L [facility].; [place] [employer], [employer]. Sodium [Moles/Vol] 139 mmol/L Normal 136 - 145 mmol/L [facility].; [employer], [employer]. Urea nitrogen [Mass/Vol] 11 mg/dL Normal 6 - 20 mg/dL [place] [employer].; [employer]. No Panel Informationon 02-10 AGE 41 {years} Normal [place] [employer].; [employer]. Laboratory - Chemistry and C hemistry - challengeon 01-04-2017 Albumin [Mass/Vol] 4.5 g/dL Normal 3.4 - 4.8 g/dL [facility] [employer], [employer]. Albumin [Mass/Vol] 1.9 g/dL Abnormal 0.9 - 1.6 [facility].; [employer], [employer]. ALP [Catalytic activity/Vol] 75 U/L Normal 38 - 126 U/L [place] [employer].; [employer], [employer]. ALT [Catalytic activity/Vol] 10 U/L Normal 8 - 35 U/L [place] [employer].; [employer], [employer]. ALT No additional P-5'-P [Catalytic activity/Vol] 10 U/L Normal 8 - 35 U/L [place] [employer].; [employer], [employer]. Anion gap [Moles/Vol] 10 mmol/L Normal 10 - 20 mmol/L [place] [employer].; [employer], [employer]. AST [Catalytic activity/Vol] 13 U/L Normal 13 - 39 U/L [facility].; [facility], [facility] Bilirubin [Mass/Vol] 0.8 mg/dL Normal 0.0 - 1 .5 mg/dL [facility]; [facility], [facility]. Calcium [Mass/Vol] 9.4 mg/dL Normal 8.6 - 10. 2 mg/dL [facility].; [facility], [facility] Chloride [Moles/Vol] 106 mmol/L Normal 98 - 10 7 mmol/L [facility]; [facility], [facility] Cholesterol [Mass/Vol] 187 mg/dL Normal 0 - 200 mg/dL [facility]; [facility], [facility] Cholesterol in HDL [Mass or moles/Vol] 69 mg/dL Abnormal 40 - 60 mg/dL [facility]; [facility], [facility] Cholesterol in LDL [Mass/Vol] 100 mg/dL Normal 0 - 129 mg/dL [facility].; [facility], [facility]. Cholesterol.total/Cho lesterol in HDL [Mass ratio] 2.7 {ratio} Normal 0.0 - 5.0 [facility]; [facility], [facility]. CO2 [Moles/Vol] 28.0 mmol/L Normal 21.0 - 31.0 mmol/L [facility]; [facility], [facility]. Comprehensive metabolic 2000 panel CMP with eGFR Normal [facility]; [facility], [facility] Creatinine [Mass/Vol] 0.6 mg/dL Normal 0.6 - 1.2 mg/dL [facility].; [facility], [facility]. GFR/1.73 sq M.predicted among blacks MDRD (S/P/Bld) [Vol rate/Area] 133 {ML/MINUTE} Normal 60 - 999 {ML/MINUTE} [facility], [facility].; [facility], [facility]. GFR/1.73 sq M.predicted MDRD (S/P/Bld) [Vol rate/Area] 110 {ML/MINUTE} Normal 60 - 999 {ML/MINUTE} [facility], [facility].; [facility], [facility]. Globulin (S) [Mass/Vol] 2.4 g/dL Normal 1.5 - 3.8 g/dL [facility].; [facility], [facility] Glucose [Mass/Vol] 83 mg/dL Normal 74 - 106 mg/dL [facility]; [facility], [facility] Lipid 1996 panel LIPID PROFILE [facility]; [facility], [facility] Potassium [Moles/Vol] 6.3 mmol/L Abnormal 3.5 - 5.1 mmol/L [facility]; [facility], [facility] Protein [Mass/Vol] 6.9 g/dL Normal 6.4 - 8.3 g/dL [facility]; [facility], [facility] Sodium [Moles/Vol] 138 mmol/L Normal 136 - 145 mmol/L [facility]; [facility], [facility] Triglyceride [Mass/Vol] 88 mg/dL Normal 0 - 150 mg/dL [facility]; [facility], [facility] TSH Qn 0.91 m[IU]/L Normal 0.34 - 5.60 {uIU/ml} [facility]; [facility], [facility] Urea nitrogen [Mass/Vol] 8 mg/dL Normal 6 - 20 mg/dL [facility]; [facility], [facility] Urea nitrogen/Creatinine [Mass ratio] 13 {ratio} Normal 0 - 30 {ratio} [facility]; [place] [employer] [facility], [facility] No Panel Informationon 01-04 AGE 41 {years} Normal [facility]; [facility], [facility] Laboratory - Chemistry and C hemistry - challengeon 05-24-2014 Basic metabolic 2000 panel BMP with eGFR Normal [facility]; [facility], [facility] Calcium [Mass/Vol] 9.3 mg/dL Normal 8.6 - 10. 2 mg/dL [facility], [facility].; [facility], [facility] Chloride [Moles/Vol] 105 mmol/L Normal 98 - 10 7 mmol/L [facility], [facility].; [facility], [facility] Cholesterol [Mass/Vol] 155 mg/dL Normal 0 - 200 mg/dL [facility], [facility]; [facility], [facility]. Cholesterol in HDL [Mass or moles/Vol] 48 mg/dL Normal 40 - 60 mg/dL [facility]; [facility], [facility] Cholesterol in LDL [Mass/Vol] 87 mg/dL Normal 0 - 129 mg/dL [facility].; [facility], [facility] Cholesterol.total/Cho lesterol in HDL [Mass ratio] 3.2 {ratio} Normal 0.0 - 5.0 [facility]; [facility] CO2 [Moles/Vol] 24.0 mmol/L Normal 13.0 - 29.0 mmol/L [facility]; [facility], [facility] Creatinine [Mass/Vol] 0.6 mg/dL Normal 0.6 - 1.2 mg/dL [facility].; [facility], [facility]. GFR/1.73 sq M.predicted among blacks MDRD (S/P/Bld) [Vol rate/Area] mL/min/{1.73_m2} Normal 60 - 999 {ML/MINUTE} [facility].; [facility], [facility]. GFR/1.73 sq M.predicted MDRD (S/P/Bld) [Vol rate/Area] mL/min/{1.73_m2} Normal 60 - 999 {ML/MINUTE} [facility], [facility].; [facility], [facility]. Glucose [Mass/Vol] 85 mg/dL Normal 74 - 106 mg/dL [facility].; [facility], [facility] Lipid 1996 panel LIPID PROFILE Normal [facility].; [facility], [facility] Potassium [Moles/Vol] 3.7 mmol/L Normal 3.5 - 5.1 mmol/L [facility].; [facility], [facility] Sodium [Moles/Vol] 136 mmol/L Normal 136 - 145 mmol/L [facility], [facility].; [facility], [facility]. Triglyceride [Mass/Vol] 100 mg/dL Normal 0 - 150 mg/dL [facility], [facility].; [facility], [facility] Urea nitrogen [Mass/Vol] 8 mg/dL Normal 6 - 20 mg/dL [facility]; [employer]. No Panel Informationon [birth year] AGE 38 {years} Normal [employer].; [employer]. Laboratory - Chemistry and C hemistry - challengeon 02-26-2012 Bilirubin Ql (U) Negative Normal [facility] [place]. Ketones Ql (U) Negative Normal [facility] [employer].; [employer]. pH (U) 6.0 [pH] Normal 4.6 - 8.0 [employer].; [employer]. Specific gravity (U) [Rel density] 1.005 Normal 1.001 - 1.025 [employer].; [employer]. Laboratory - Hematology and Cell countson 02-26-2012 Hemoglobin Ql (U) Negative Normal [employer].; [employer]. Laboratory - Specimen inform ationon 02-26-2012 Appearance (U) clear Normal [facility] [employer].; [employer]. Color (U) yellow Normal [employer].; [employer]. Laboratory - Urinalysison Glucose Test strip (U) [Mass/Vol] Negative Normal [employer].; [place], [employer]. Leukocyte esterase Test strip Ql (U) Negative Normal [employer].; [place], [employer]. Nitrite Ql (U) Negative Normal [facility] [employer].; [employer]. Protein Ql (U) Negative Normal [facility] [employer].; [place], [employer]. No Panel Informationon 02-25 UA - UROBILINOGEN 0.2 mg/dL Normal [employer].; [employer]. Vital Signs Date Time Vital Sign Value Performing Clinician Facility 04-16-2025 08:57-0400 Body height 160.02 cm Leonora MILLS Work Phone: [facility] 04-16-2025 08:57-0400 Body mass index (BMI) [Ratio] 32.2 kg/m2 Leonora MILLS Work Phone: 5(829)871-363130 [place] [address] 04-16-2025 08:57-0400 Body temperature 97.4 [degF] Leonora Saldivar PA Work Phone: 4(770)399-456860 [place] [address] 04-16-2025 08:57-0400 Body weight 82.55 kg Leonora Saldivar PA Work Phone: 3(308)608-969160 [place] [address] 04-16-2025 08:57-0400 Diastolic blood pressure 57 mm[Hg] Leonora Saldivar PA Work Phone: 0(016)295-251660 [place] [address] 04-16-2025 08:57-0400 Heart rate 67 /min Leonora Saldivar PA Work Phone: 4(249)929-119960 [place] [address] 04-16-2025 08:57-0400 Respiratory rate 18 /min Leonora Saldivar PA Work Phone: 8(511)171-253460 [place] [address] 04-16-2025 08:57-0400 SaO2% (BldA) [Mass fraction] 99 % Leonora Saldivar PA Work Phone: 1(995)027-928560 [place] [address] 04-16-2025 08:57-0400 Systolic blood pressure 100 mm[Hg] Leonora Saldivar PA Work Phone: 5(433)551-350060 [place] [address] 03-27-2025 12:28-0400 Body height 160.02 cm Leonora Saldivar PA Work Phone: 3(743)160-691460 [place] [address] 03-27-2025 12:28-0400 Body weight 83.91 kg Leonora Saldivar PA Work Phone: 2(987)806-036260 [place] [address] 03-27-2025 12:28-0400 Heart rate 69 /min Leonora Saldivar PA Work Phone: 7(836)609-961130 [place] [address] 03-27-2025 12:28-0400 Inhaled oxygen concentration 21 % Leoonra Saldivar PA Work Phone: 6(864)783-199960 [place] [address] 03-27-2025 12:28-0400 Inhaled oxygen flow rate 21 L/min Leonora Saldivar PA Work Phone: 6(536)940-174430 [place] [address] 03-27-2025 12:28-0400 SaO2% (BldA) [Mass fraction] 98 % Leonora Saldivar PA Work Phone: [facility] 03-05-2025 08:44-0400 Body mass index (BMI) [Ratio] 32.9 kg/m2 Leonora Saldivar PA Work Phone: [facility] 03-05-2025 08:44-0400 Body temperature 97.4 [degF] Leonora Saldivar PA Work Phone: [facility] 03-05-2025 08:44-0400 Body weight 84.36 kg Leonora Saldivar PA Work Phone: [facility] 03-05-2025 08:44-0400 Diastolic blood pressure 93 mm[Hg] Leonora Saldivar PA Work Phone: [facility] 03-05-2025 08:44-0400 Heart rate 62 /min Leonora Saldivar PA Work Phone: [facility] 03-05-2025 08:44-0400 Respiratory rate 18 /min Leonora Saldivar PA Work Phone: [facility] 03-05-2025 08:44-0400 SaO2% (BldA) [Mass fraction] 99 % Leonora Saldivar PA Work Phone: [facility] 03-05-2025 08:44-0400 Systolic blood pressure 154 mm[Hg] Leonora Saldivar PA Work Phone: [facility] 02-02-2025 14:04-0400 Body height 160.02 cm Leonora J Saldivar PA-C Work Phone: [facility] 02-02-2025 14:04-0400 Body mass index (BMI) [Ratio] 32.28 kg/m2 Leonora J Saldivar PA-C Work Phone: [facility].; [facility] 02-02-2025 14:04-0400 Body surface area Derived from formula 1.86 m2 Leonora J Saldivar PA-C Work Phone: [facility]; [facility] 02-02-2025 14:04-0400 Body temperature 97.9 [degF] Leonora J Saldivar PA-C Work Phone: [facility]; [place] [employer] Comment on above: Method: Tympanic 02-02-2025 14:04-0400 Body weight 82.67 kg Leonora Linh Saldivar PA-C Work Phone: [facility]; [email or web address] [facility] 02-02-2025 14:04-0400 Diastolic blood pressure 86 mm[Hg] Leonora J Saldivar PA-C Work Phone: [facility]; [employer]. Comment on above: Patient Position: Sitting; Cuff Location : Left Arm; Cuff Size: Standard 02-02-2025 14:04-0400 Heart rate 112 /min Leonora J Saldivar PA-C Work Phone: [facility] [employer]; [employer]. Comment on above: Pattern: Regular 02-02-2025 14:04-0400 Inhaled oxygen concentration 21 % Leonora J Saldivar PA-C Work Phone: [facility]; [place] [employer]. Comment on above: Room air 02-02-2025 14:04-0400 SaO2% (BldA) [Mass fraction] 96 % Leonora J Saldivar PA-C Work Phone: [facility]; [place] [employer] [facility] 02-02-2025 14:04-0400 Systolic blood pressure 128 mm[Hg] Leonora J Saldivar PA-C Work Phone: [facility]; [place] [employer]. Comment on above: Patient Position: Sitting; Cuff Location : Left Arm; Cuff Size: Standard 01-08-2025 10:03-0500 Body height 160.02 cm Radha Lyons RN [facility].; [place] [employer] 01-08-2025 10:03-0500 Body mass index (BMI) [Ratio] 32.24 kg/m2 Radha Lyons RN [facility].; [facility]. 01-08-2025 10:03-0500 Body surface area Derived from formula 1.86 m2 Radha Lyons RN [facility].; [facility]. 01-08-2025 10:03050 Body weight 82.56 kg Radha Lyons RN [facility].; [facility]. 01-08-2025 10:03-0500 Diastolic blood pressure 65 mm[Hg] Radha Lyons RN [facility].; [place] [employer] [facility]. Comment on above: Patient Position: Sitting; Cuff Location : Left Arm; Cuff Size: Standard 01-08-2025 10:03-0500 Heart rate 69 /min Radha Lyons RN [facility].; [place] [employer] [facility]. Comment on above: Pattern: Regular 01-08-2025 10:03-0500 Inhaled oxygen concentration 21 % Radha Lyons RN [facility].; [facility] [facility]. Comment on above: Room air 01-08-2025 10:03-0500 SaO2% (BldA) [Mass fraction] 99 % Radha Lyons RN [facility].; [place] [employer] [facility]. 01-08-2025 10:03-0500 Systolic blood pressure 96 mm[Hg] Radha Lyons RN [facility].; [employer]. Comment on above: Patient Position: Sitting; Cuff Location : Left Arm; Cuff Size: Standard 07-24-2024 12:52-0400 Body mass index (BMI) [Ratio] 29.76 kg/m2 Laurita Jamison APRN.CNP Work Phone: [facility] 07-24-2024 12:52-0400 Body weight 76.2 kg Laurita Jamison APRN.CNP Work Phone: [facility] 07-24-2024 12:52-0400 Diastolic blood pressure 70 mm[Hg] Laurita [place] [employer] SUP[employer]Y OFFICER Work Phone: [facility] 07-24-2024 12:52-0400 Systolic blood pressure 120 mm[Hg] Laurita [place] [employer]IST[employer] SUPPLY OFFICER Work Phone: [facility] 07-13-2024 09:59-0400 Body height 160.02 cm Bridget Smith MA [facility].; [facility] 07-13-2024 09:59-0400 Body mass index (BMI) [Ratio] 29.41 kg/m2 Bridget Smith MA [facility].; [facility] 07-13-2024 09:59-0400 Body surface area Derived from formula 1.79 m2 Bridget Smith MA [facility].; [facility] 07-13-2024 09:59-0400 Body weight 75.3 kg Bridget Smith MA [facility].; [facility] 07-13-2024 09:59-0400 Diastolic blood pressure 73 mm[Hg] Bridget Smith MA [facility].; [facility]. Comment on above: Patient Position: Sitting; Cuff Location : Left Arm; Cuff Size: Standard 07-13-2024 09:59-0400 Heart rate 71 /min Bridget Smith MA [facility].; [place] [employer] [facility]. Comment on above: Pattern: Regular 07-13-2024 09:59-0400 Systolic blood pressure 115 mm[Hg] Bridget Smith MA [facility].; [place] [employer] [facility]. Comment on above: Patient Position: Sitting; Cuff Location : Left Arm; Cuff Size: Standard 05-29-2024 14:11-0400 Body mass index (BMI) [Ratio] 29.05 kg/m2 Laurita Shahe[place] [employer]ER [employer]IST[employer] SUPPLY OFFICER Work Phone: [facility] 05-29-2024 14:11-0400 Body weight 74.39 kg Laurita [place] [employer]IST[employer] SUPPLY OFFICER Work Phone: [facility] 05-29-2024 14:11-0400 Diastolic blood pressure 70 mm[Hg] Laurita Shaheen [employer]ER [employer].LOGIST[employer] SUPPLY OFFICER Work Phone: [facility] 05-29-2024 14:110400 Systolic blood pressure 122 mm[Hg] Laurita Shaheen [employer]ER [employer].LOGIST[employer] SUPPLY OFFICER Work Phone: [facility] 03-27-2024 10:28-0400 Body height 160 cm Laurita [place] [employer].LOGIST[employer] SUPPLY OFFICER Work Phone: [facility] 03-27-2024 10:28-0400 Body mass index (BMI) [Ratio] 27.74 kg/m2 Laurita Shaheen [employer].LOGIST[employer] SUPPLY OFFICER Work Phone: [facility] 03-27-2024 10:280400 Body weight 71.03 kg Laurita Shaheen [employer]ER [employer].LOGISTICS SUPPLY OFFICER Work Phone: [facility] 03-27-2024 10:28-0400 Diastolic blood pressure 80 mm[Hg] Laurita Shaheen [employer]ER [employer].LOGISTICS SUPPLY OFFICER Work Phone: [facility] 03-27-2024 10:28-0400 Systolic blood pressure 138 mm[Hg] Laurita [place] [employer].LOGISTICS SUPPLY OFFICER Work Phone: [facility] 01-04-2024 10:49-0500 Body height 160.02 cm Elizabeth Beard MA [facility], [facility].; [facility], [facility]. 01-04-2024 10:49-0500 Body mass index (BMI) [Ratio] 26.96 kg/m2 Elizabeth Beard MA [facility], [facility].; [facility], [facility]. 01-04-2024 10:49-0500 Body surface area Derived from formula 1.72 m2 Elizabeth Beard MA [facility], [facility].; [facility], [facility]. 01-04-2024 10:49-0500 Body weight 69.03 kg Elizabeth Beard MA [facility], [facility].; [facility], [facility]. 01-04-2024 10:49-0500 Diastolic blood pressure 75 mm[Hg] Elizabeth Beard MA [facility], [facility].; [facility], [facility]. Comment on above: Patient Position: Sitting; Cuff Location : Left Arm; Cuff Size: Standard 01-04-2024 10:49-0500 Heart rate 84 /min Elizabeth Beard MA [facility], [facility].; [facility], [facility]. Comment on above: Pattern: Regular 01-04-2024 10:49-0500 Systolic blood pressure 117 mm[Hg] Elizabeth Beard MA [facility], [facility].; [facility]. Comment on above: Patient Position: Sitting; Cuff Location : Left Arm; Cuff Size: Standard 01-03-2024 07:41-0500 Body height 160.02 cm PA Leonora Saldivar Work Phone: [facility] 01-03-2024 07:41-0500 Body mass index (BMI) [Ratio] 26 kg/m2 PA Leonora Saldivar Work Phone: [facility] 01-03-2024 07:41-0500 Body temperature 96.4 [degF] PA Leonora Saldivar Work Phone: [facility] 01-03-2024 07:41-0500 Body weight 66.67 kg PA Leonora Saldivar Work Phone: 2(431)557-919930 [place] [address] 01-03-2024 07:41-0500 Diastolic blood pressure 72 mm[Hg] PA Leonora Saldivar Work Phone: [facility] 01-03-2024 07:41-0500 Heart rate 68 /min PA Leonora Saldivar Work Phone: [facility] 01-03-2024 07:41-0500 Respiratory rate 18 /min PA Leonora Saldivar Work Phone: [facility] 01-03-2024 07:41-0500 SaO2% (BldA) [Mass fraction] 98 % PA Leonora Saldivar Work Phone: [facility] 01-03-2024 07:41-0500 Systolic blood pressure 106 mm[Hg] PA Leonora Saldivar Work Phone: [facility] 11-03-2023 10:52-0500 Body height 160.[address] Carlin Adam Work Phone: 0(109)320-120630 [place] [address] 11-03-2023 10:52-0500 Body mass index (BMI) [Ratio] 26.4 kg/m2 Dr. Carlin Adam Work Phone: 7(274)718-200707 [address] 11-03-2023 10:52-0500 Body temperature 98.4 [degF] Dr. Carlin Adam Work Phone: 6(441)391-558860 [place] [address] 11-03-2023 10:52-0500 Body weight 67.[address] Carlin Adam Work Phone: 6(877)271-341807 [address] 11-03-2023 10:52-0500 Diastolic blood pressure 74 mm[Hg] Dr. Carlin Adma Work Phone: 8(020)113-894160 [place] [address] 11-03-2023 10:52-0500 Heart rate 51 /min Dr. Carlin Adam Work Phone: 1(528)703-317060 [place] [address] 11-03-2023 10:52-0500 Respiratory rate 18 /min Dr. Carlin Adam Work Phone: 5(802)897-767907 [address] 11-03-2023 10:52-0500 SaO2% (BldA) [Mass fraction] 97 % Dr. Carlin Adam Work Phone: 2(084)043-880307 [address] 11-03-2023 10:52-0500 Systolic blood pressure 129 mm[Hg] Dr. Carlin Adam Work Phone: 3(355)761-438660 [place] [address] 10-25-2023 13:53-0500 Body height 160.[address] Carlin Adam Work Phone: 1(914)120-982360 [place] [address] 10-25-2023 13:53-0500 Body weight 65.[address] Carlin Adam Work Phone: 9(043)125-957407 [address] 10-25-2023 13:53-0500 Heart rate 84 /min Dr. Carlin Adam Work Phone: 7(980)033-445860 [place] [address] 10-25-2023 13:53-0500 SaO2% (BldA) [Mass fraction] 99 % Dr. Carlni Adam Work Phone: 0(780)827-018307 [address] 09-15-2023 06:30-0500 Body mass index (BMI) [Ratio] 27.3 kg/m2 Dr. Carlin Adam Work Phone: [facility] 09-15-2023 06:30-0500 Body temperature 96.8 [degF] Dr. Carlin Adam Work Phone: [facility] 09-15-2023 06:30-0500 Body weight 69.[address] aCrlin Adam Work Phone: [facility] 09-15-2023 06:30-0500 Diastolic blood pressure 68 mm[Hg] Dr. Carlin Adam Work Phone: 8(875)219-105430 [place] [address] 09-15-2023 06:30-0500 Heart rate 84 /min Dr. Carlin Adam Work Phone: 7(761)041-407360 [place] [address] 09-15-2023 06:30-0500 SaO2% (BldA) [Mass fraction] 96 % Dr. Carlin Adam Work Phone: [facility] 09-15-2023 06:30-0500 Systolic blood pressure 122 mm[Hg] Dr. Carlin Adam Work Phone: [facility] 08-09-2023 10:11040 Body height 160.02 cm Elizabeth Beard MA [facility], [facility].; [facility], [facility]. 08-09-2023 10:110400 Body mass index (BMI) [Ratio] 27.18 kg/m2 Elizabeth Beard MA [facility], [facility]. 08-09-2023 10:11040 Body surface area Derived from formula 1.73 m2 Elizabeth Beard MA [facility], [facility].; [facility], [facility]. 08-09-2023 10:11040 Body weight 69.6 kg Elizabeth Beard MA [facility], [facility].; [facility], [facility]. 08-09-2023 10:11040 Diastolic blood pressure 74 mm[Hg] Elizabeth Beard MA [facility], [facility].; [facility], [facility]. Comment on above: Patient Position: Sitting; Cuff Location : Left Arm; Cuff Size: Standard 08-09-2023 10:11-0400 Heart rate 98 /min Elizabeth Chirag ROSAS [facility].; [employer]. Comment on above: Pattern: Regular 08-09-2023 10:11-0400 Systolic blood pressure 109 mm[Hg] Elizabeth Chirag ROSAS [facility].; [employer]. Comment on above: Patient Position: Sitting; Cuff Location : Left Arm; Cuff Size: Standard 06-11-2023 13:18-0400 Body height 160.02 cm Elizabeth Beard [facility].; [employer]. 06-11-2023 13:18-0400 Body mass index (BMI) [Ratio] 26.57 kg/m2 Elizabeth Beard MA [facility].; [place] [employer] [facility]. 06-11-2023 13:180400 Body surface area Derived from formula 1.71 m2 Elizabeth Beard MA [facility].; [place] [employer] [facility]. 06-11-2023 13:18-040 Body weight 68.04 kg Elizabeth Beard MA [facility].; [employer]. 06-11-2023 13:18-0400 Diastolic blood pressure 89 mm[Hg] Elizabeth Chirag ROSAS [facility].; [employer]. Comment on above: Patient Position: Sitting; Cuff Location : Left Arm; Cuff Size: Standard 06-11-2023 13:18-0400 Heart rate 79 /min Elizabeth Beard MA [facility].; [employer]. Comment on above: Pattern: Regular 06-11-2023 13:18-0400 Systolic blood pressure 131 mm[Hg] Elizbaeth Chirag ROSAS [facility].; [employer]. Comment on above: Patient Position: Sitting; Cuff Location : Left Arm; Cuff Size: Standard 10-15-2021 10:33-0500 Body height 160.02 cm Daniella Virgen LPN [facility].; [employer]. 10-15-2021 10:33-0500 Body mass index (BMI) [Ratio] 24.98 kg/m2 Daniella Virgen LPN [facility].; [facility], [facility]. 10-15-2021 10:33-0500 Body surface area Derived from formula 1.67 m2 Daniella Virgen LPN [facility], [facility].; [facility]. 10-15-2021 10:33-0500 Body weight 63.96 kg Daniella Virgen LPN [facility], [facility].; [place] [employer] [facility], [facility]. 10-15-2021 10:33-0500 Diastolic blood pressure 72 mm[Hg] Daniella Virgne LPN [facility], [facility].; [place] [employer] [facility], [facility]. Comment on above: Patient Position: Sitting; Cuff Location : Left Arm; Cuff Size: Standard 10-15-2021 10:33-0500 Heart rate 91 /min Daniella Virgen LPN [facility], [facility].; [place] [employer] [facility], [facility]. Comment on above: Pattern: Regular 10-15-2021 10:33-0500 Systolic blood pressure 112 mm[Hg] Daniella Virgen LPN [facility], [facility].; [facility], [facility]. Comment on above: Patient Position: Sitting; Cuff Location : Left Arm; Cuff Size: Standard 08-04-2021 13:09040 Body height 160.02 cm Lady Bowers LPN [facility], [facility].; [facility], [facility]. 08-04-2021 13:090400 Body mass index (BMI) [Ratio] 25.51 kg/m2 Lady Bowers LPN [facility], [facility].; [facility]. 08-04-2021 13:090400 Body surface area Derived from formula 1.68 m2 Lady Bowers LPN [facility], [facility].; [facility], [facility]. 08-04-2021 13:09040 Body weight 65.32 kg Lady Robinson UNIVERSITY TEACHER [facility], [facility].; [place] [employer] [facility], [facility]. 08-04-2021 13:090400 Diastolic blood pressure 78 mm[Hg] Lady Bowers LPN [facility], [facility].; [place] [employer], [facility]. Comment on above: Patient Position: Sitting; Cuff Location : Left Arm; Cuff Size: Standard 09-27-2021 13:09-0400 Heart rate 92 /min Lady Sannarosey POE [employer].; [employer]. Comment on above: Pattern: Regular 08-04-2021 13:09-0400 Systolic blood pressure 127 mm[Hg] Lady Bowers DEEPIKA [employer].; [employer]. Comment on above: Patient Position: Sitting; Cuff Location : Left Arm; Cuff Size: Standard 01-26-2019 14:15-0400 Body height 160.02 cm Radha Lyons RN [employer].; [employer]. 01-26-2019 14:15-0400 Body mass index (BMI) [Ratio] 26.93 kg/m2 Radha Lyons RN [employer].; [employer]. 01-26-2019 14:15-0400 Body surface area Derived from formula 1.72 m2 Radha Lyons RN [employer].; [employer]. 01-26-2019 14:15-0400 Body temperature 98.4 [degF] Radha Lyons RN [employer].; [employer]. Comment on above: Method: Tympanic 01-26-2019 14:15-0400 Body weight 68.95 kg Radha Lyons RN [employer].; [employer]. 01-26-2019 14:15-0400 Diastolic blood pressure 63 mm[Hg] Radha Lyons RN [employer].; [employer]. Comment on above: Patient Position: Sitting; Cuff Location : Left Arm; Cuff Size: Standard 01-26-2019 14:15-0400 Heart rate 69 /min Radha Lyons RN [employer].; [employer]. Comment on above: Pattern: Regular 01-26-2019 14:15-0400 Systolic blood pressure 98 mm[Hg] Radha Lyons RN [employer].; [employer]. Comment on above: Patient Position: Sitting; Cuff Location : Left Arm; Cuff Size: Standard 11-29-2018 11:01-0500 Body height 160.02 cm Leonora Saldivar PA-C Work Phone: [employer]; [facility] 11-29-2018 11:01-0500 Body mass index (BMI) [Ratio] 26.57 kg/m2 Leonora Saldivar PA-C Work Phone: [facility]; [facility] 11-29-2018 11:01-0500 Body surface area Derived from formula 1.71 m2 Leonora Saldivar PA-C Work Phone: [facility]; [facility] 11-29-2018 11:01-0500 Body weight 68.04 kg Leonora Saldivar PA-C Work Phone: [facility]; [facility] 11-29-2018 11:01-0500 Diastolic blood pressure 74 mm[Hg] Leonora Saldivar PA-C Work Phone: [facility]; [place]. Comment on above: Patient Position: Sitting; Cuff Location : Left Arm; Cuff Size: Standard 11-29-2018 11:01-0500 Heart rate 79 /min Leonora Saldivar PA-C Work Phone: [facility]; [facility] Comment on above: Pattern: Regular 11-29-2018 11:01-0500 Systolic blood pressure 113 mm[Hg] Leonora Saldivar PA-C Work Phone: [facility]; [facility] Comment on above: Patient Position: Sitting; Cuff Location : Left Arm; Cuff Size: Standard 08-26-2018 12:02-0400 Body height 160.02 cm Leonora Saldivar PA-C Work Phone: [facility]; [facility] 08-26-2018 12:02-0400 Body mass index (BMI) [Ratio] 23.91 kg/m2 Leonora Saldivar PA-C Work Phone: [facility]; [place]. 08-26-2018 12:02-0400 Body surface area Derived from formula 1.64 m2 Leonora Saldivar PA-C Work Phone: [employer] 08-26-2018 12:02-0400 Body weight 61.24 kg Leonora Saldivar PA-C Work Phone: [employer] [employer]. 08-26-2018 12:02-0400 Diastolic blood pressure 68 mm[Hg] Leonora Saldivar PA-C Work Phone: [facility]; [place]. Comment on above: Patient Position: Sitting; Cuff Location : Left Arm; Cuff Size: Standard 08-26-2018 12:02-0400 Heart rate 64 /min Leonora Saldivar PA-C Work Phone: [facility]; [place]. Comment on above: Pattern: Regular 08-26-2018 12:02-0400 Systolic blood pressure 105 mm[Hg] Leonora Saldivar PA-C Work Phone: [facility]; [place]. Comment on above: Patient Position: Sitting; Cuff Location : Left Arm; Cuff Size: Standard 06-03-2018 15:130400 Body height 160.02 cm Nava Garcias LPN [facility] [employer] 06-03-2018 15:13-0400 Body mass index (BMI) [Ratio] 23.56 kg/m2 Nava Garcias LPN [facility] [employer] 06-03-2018 15:130400 Body surface area Derived from formula 1.63 m2 Nava Garcias LPN [employer] [employer]. 06-03-2018 15:130400 Body weight 60.33 kg Nava Garcias LPN [employer] [place]. 06-03-2018 15:13-0400 Diastolic blood pressure 66 mm[Hg] Nava Garcias LPN [employer] [place]. Comment on above: Patient Position: Sitting; Cuff Location : Left Arm; Cuff Size: Standard 06-03-2018 15:13-0400 Heart rate 69 /min Nava Garcias LPN [facility] [place]. Comment on above: Pattern: Regular 06-03-2018 15:13-0400 Systolic blood pressure 107 mm[Hg] Nava Garcias LPN [facility] [employer]. Comment on above: Patient Position: Sitting; Cuff Location : Left Arm; Cuff Size: Standard 05-27-2018 15:52-0400 Body height 160.02 cm Nava Garcias LPN [facility] [place], [employer]. 05-27-2018 15:52-0400 Body mass index (BMI) [Ratio] 23.38 kg/m2 Nava Garcias LPN [facility] [place], [employer]. 05-27-2018 15:52-0400 Body surface area Derived from formula 1.62 m2 Nava Garcias LPN [facility] [place], [employer]. 05-27-2018 15:52-0400 Body temperature 97.7 [degF] Nava Garcias LPN [facility] [place], [employer]. 05-27-2018 15:52-0400 Body weight 59.88 kg Nava Garcias LPN [facility] [place], [employer]. 05-27-2018 15:52-0400 Diastolic blood pressure 77 mm[Hg] Nava Garcias LPN [facility] [employer]. Comment on above: Patient Position: Sitting; Cuff Location : Left Arm; Cuff Size: Standard 05-27-2018 15:52-0400 Heart rate 84 /min Nava Garcias LPN [facility] [place]. Comment on above: Pattern: Regular 05-27-2018 15:52-0400 Systolic blood pressure 109 mm[Hg] Nava Garcias LPN [place] [employer] [facility] [place]. Comment on above: Patient Position: Sitting; Cuff Location : Left Arm; Cuff Size: Standard 01-04-2017 10:23-0500 Body height 160.02 cm Radha Lyons RN [employer] [place]. 01-04-2017 10:23-0500 Body mass index (BMI) [Ratio] 21.43 kg/m2 Radha Lyons RN [employer] [facility] [place], [employer] 01-04-2017 10:23-0500 Body surface area Derived from formula 1.56 m2 Radha Lyons RN [employer] 01-04-2017 10:23-0500 Body weight 54.89 kg Radha Lyons RN [employer] 01-04-2017 10:23-0500 Diastolic blood pressure 88 mm[Hg] Radha Lyons RN [employer] [place]. Comment on above: Patient Position: Sitting; Cuff Location : Left Arm; Cuff Size: Standard 01-04-2017 10:23-0500 Heart rate 62 /min Rdaha Lyons RN [employer] [place]. Comment on above: Pattern: Regular 01-04-2017 10:23-0500 Systolic blood pressure 139 mm[Hg] Radha Lyons RN [employer] [place]. Comment on above: Patient Position: Sitting; Cuff Location : Left Arm; Cuff Size: Standard 12-09-2015 09:07-0500 Body height 160.02 cm Radha Lyons RN [employer] [place]. 12-09-2015 09:07-0500 Body mass index (BMI) [Ratio] 22.32 kg/m2 Radha Lyons RN [employer] [employer] 12-09-2015 09:07-0500 Body surface area Derived from formula 1.59 m2 Radha Lyons RN [employer] [employer]. 12-09-2015 09:07-0500 Body temperature 98.2 [degF] Radha Lyons RN [employer].; [employer]. Comment on above: Method: Tympanic 12-09-2015 09:07-0500 Body weight 57.15 kg Radha Lyons RN [place] [employer] [facility] [place]. 12-09-2015 09:07-0500 Diastolic blood pressure 60 mm[Hg] Radha Lyons RN [place] [employer] [place]. Comment on above: Patient Position: Sitting; Cuff Location : Left Arm; Cuff Size: Standard 12-09-2015 09:07-0500 Heart rate 80 /min Radha Lyons RN [place] [employer] [place]. Comment on above: Pattern: Regular 12-09-2015 09:07-0500 Inhaled oxygen concentration 20 % Radha Lyons RN [place] [employer] [place]. Comment on above: Room air 12-09-2015 09:07-0500 Inhaled oxygen concentration 21 % aRdha Lyons RN [place] [employer]. Comment on above: Room air 12-09-2015 09:07-0500 SaO2% (BldA) [Mass fraction] 99 % Radha Lyons RN [employer] [place]. 12-09-2015 09:07-0500 Systolic blood pressure 101 mm[Hg] Radha Lyons RN [place] [employer] [place]. Comment on above: Patient Position: Sitting; Cuff Location : Left Arm; Cuff Size: Standard 10-09-2015 11:45-0500 Body height 160.02 cm Leonor Zaman LPN [place] [employer] [place]. 10-09-2015 11:45-0500 Body mass index (BMI) [Ratio] 23.03 kg/m2 Leonor Zaman LPN [employer] 10-09-2015 11:45-0500 Body surface area Derived from formula 1.61 m2 Leonor Zaman LPN [employer] [place]. 10-09-2015 11:45-0500 Body temperature 97.2 [degF] Leonor Zaman DEEPIKA [place] [employer] [facility] [place], [employer] Comment on above: Method: Tympanic 10-09-2015 11:45-0500 Body weight 58.97 kg Leonor Zaman DEEPIKA [place] [employer] [facility] [place], [employer] 10-09-2015 11:45-0500 Diastolic blood pressure 68 mm[Hg] Leonor Villalobosrios POE [place] [employer] [place], [employer] Comment on above: Patient Position: Sitting; Cuff Location : Left Arm; Cuff Size: Standard 10-09-2015 11:45-0500 Heart rate 93 /min Leonor Werios POE [place] [employer] [facility] [place], [employer] Comment on above: Pattern: Regular 10-09-2015 11:45-0500 Inhaled oxygen concentration 20 % Leonor Werios POE [place] [employer] [place], [employer] Comment on above: Room air 10-09-2015 11:45-0500 Inhaled oxygen concentration 21 % Leonor Werios POE [place] [employer] [place], [employer]. Comment on above: Room air 10-09-2015 11:45-0500 SaO2% (BldA) [Mass fraction] 98 % Leonor Wengallan POE [place] [employer] [place], [employer] 10-09-2015 11:45-0500 Systolic blood pressure 100 mm[Hg] Leonor Werios POE [place] [employer] [place]. Comment on above: Patient Position: Sitting; Cuff Location : Left Arm; Cuff Size: Standard 03-20-2014 08:10-0400 Body height 160.02 cm Shyla Rossi RN Work Phone: [employer] [place]. 03-20-2014 08:10-0400 Body mass index (BMI) [Ratio] 23.74 kg/m2 Shyla Rossi RN Work Phone: [place] [employer] [place]. 03-20-2014 08:10-0400 Body surface area Derived from formula 1.63 m2 Shyla Rossi RN Work Phone: [employer] [place]. 03-20-2014 08:10-0400 Body weight 60.78 kg Shyla Rossi RN Work Phone: [employer] [place]. 03-20-2014 08:10-0400 Diastolic blood pressure 58 mm[Hg] Shyla Rossi RN Work Phone: [employer] [place]. Comment on above: Patient Position: Sitting; Cuff Location : Right Arm; Cuff Size: Standard 03-20-2014 08:10-0400 Heart rate 63 /min Shyla Rossi RN Work Phone: [employer] [place]. Comment on above: Pattern: Regular 03-20-2014 08:10-0400 Systolic blood pressure 101 mm[Hg] Shyla Rossi RN Work Phone: [employer] [employer]. Comment on above: Patient Position: Sitting; Cuff Location : Right Arm; Cuff Size: Standard 02-26-2012 10:45-0400 Body height 160.02 cm Shyla Rossi RN Work Phone: [employer] [employer] 02-26-2012 10:45-0400 Body mass index (BMI) [Ratio] 21.97 kg/m2 Shyla Rossi RN Work Phone: [employer] [employer] 02-26-2012 10:45-0400 Body surface area Derived from formula 1.58 m2 Shyla Rossi RN Work Phone: [employer] [employer] 02-26-2012 10:45-0400 Body weight 56.25 kg Shyla Rossi RN Work Phone: [employer] [employer] 02-26-2012 10:45-0400 Diastolic blood pressure 68 mm[Hg] Shyla Rossi RN Work Phone: [employer] [place]. Comment on above: Patient Position: Sitting; Cuff Location : Left Arm; Cuff Size: Standard 02-26-2012 10:45-0400 Heart rate 76 /min Shyla Rossi RN Work Phone: [employer] [place]. Comment on above: Pattern: Regular 02-26-2012 10:45-0400 Systolic blood pressure 102 mm[Hg] Shyla Rossi RN Work Phone: [employer] [place]. Comment on above: Patient Position: Sitting; Cuff Location : Left Arm; Cuff Size: Standard 02-08-2012 09:06-0400 Body height 160.02 cm Barbra Blanchard MD Work Phone: [employer] [place]. 02-08-2012 09:06-0400 Body mass index (BMI) [Ratio] 21.97 kg/m2 Barbra Blanchard MD Work Phone: [employer] [place]. 02-08-2012 09:06-0400 Body surface area Derived from formula 1.58 m2 Barbra Blanchard MD Work Phone: [employer] [place]. 02-08-2012 09:06-0400 Body weight 56.25 kg Barbra Blanchard MD Work Phone: [employer] [place]. 02-08-2012 09:06-0400 Diastolic blood pressure 71 mm[Hg] Barbra Blanchard MD Work Phone: [employer] [place]. Comment on above: Patient Position: Sitting; Cuff Location : Right Arm; Cuff Size: Standard 02-08-2012 09:06-0400 Heart rate 66 /min Barbra Blanchard MD Work Phone: [employer] [place]. Comment on above: Pattern: Regular 02-08-2012 09:06-0400 Systolic blood pressure 110 mm[Hg] Barbra Blanchard MD Work Phone: [facility]; [employer]. Comment on above: Patient Position: Sitting; Cuff Location : Right Arm; Cuff Size: Standard 05-12-2011 08:46-0400 Body weight 59.42 kg Shyla Rossi RN Work Phone: [place] [employer] [place]. 05-12-2011 08:46-0400 Diastolic blood pressure 82 mm[Hg] Shyla Rossi RN Work Phone: [place] [employer]. Comment on above: Patient Position: Sitting; Cuff Location : Left Arm; Cuff Size: Standard 05-12-2011 08:46-0400 Heart rate 66 /min Shyla Rossi RN Work Phone: [employer]; [place]. Comment on above: Pattern: Regular 05-12-2011 08:46-0400 Systolic blood pressure 110 mm[Hg] Shyla Rossi RN Work Phone: [employer]; [employer]. Comment on above: Patient Position: Sitting; Cuff Location : Left Arm; Cuff Size: Standard Encounters Encounter Date Encounter Type Care Provider Facility Start: 04-23-2025 ambulatory Leonora Bill Facility:[facility] Start: 04-16-2025 End: 04-16-2025 Patient encounter procedure Ashanti Mejía LOG HAUL OPERATOR-C -[facility] Work Phone: Start: 04-16-2025 End: 04-16-2025 ambulatory Leonora Saldivar PA Work Phone: [facility] Work Phone: Start: 04-12-2025 End: 04-12-2025 Patient encounter procedure Leonora Saldivar [facility]-C [facility] Start: 04-03-2025 ambulatory Leonora Bill Facility:[facility] Start: 04-03-2025 Non-patient / Non-visit Dr. Dangelo perla DO -[facility] Start: 04-01-2025 End: 04-01-2025 ambulatory Leonora Saldivar PA Work Phone: [facility] Work Phone: Start: 04-01-2025 End: 04-01-2025 Patient encounter procedure Ashanti Mejía LOG HAUL OPERATOR-C -Sleep Lab Work Phone: Start: 04-01-2025 End: 04-01-2025 ambulatory Leonora Saldivar Facility:[facility] Start: 03-27-2025 End: 03-27-2025 ambulatory Leonora Saldivar PA Work Phone: [facility] Work Phone: Start: 03-27-2025 End: 03-27-2025 Patient encounter procedure Ashanti Mejía LOG HAUL OPERATOR-C -Pulmonary Services/Neurology Work Phone: Start: 03-27-2025 End: 03-27-2025 ambulatory Leonora Saldivar Facility:[facility] Start: 03-23-2025 ambulatory Leonora Saldivar Facility:[facility] Start: 03-23-2025 Non-patient / Non-[facility] Start: 03-23-2025 End: 03-23-2025 Patient encounter procedure Ashanti Mejía LOG HAUL OPERATOR-C -Cardiovascular Services Work Phone: Start: 03-23-2025 End: 03-23-2025 ambulatory Leonora Saldivar Facility:[facility] Start: 03-05-2025 End: 03-05-2025 Patient encounter procedure Ashanti Mejía LOG HAUL OPERATOR-C -[facility] Work Phone: Start: 03-05-2025 End: 03-05-2025 ambulatory Ashanti Mejía NP [place] Start: 02-02-2025 End: 02-02-2025 Office outpatient visit 15 minutes Leonora Saldivar PA-C Work Phone: [facility] Start: 01-10-2025 End: 01-10-2025 Patient encounter procedure Leonora Saldivar PA-C Work Phone: [employer]. Start: 01-08-2025 End: 01-08-2025 Orders Leonora Saldivar PA-C Work Phone: [employer] Start: 01-08-2025 End: 01-08-2025 ambulatory LEONORA PAC SALDIVAR [facility] Start: 01-08-2025 End: 01-08-2025 Office outpatient visit 25 minutes Leonora Saldivar PA-C Work Phone: [facility] Start: 01-08-2025 Review Leonora Saldivar P A-C Work Phone: [employer] Start: 12-18-2024 End: 12-18-2024 Patient encounter procedure Ashanti Mejía LOG HAUL OPERATOR-C -Pulmonary Services/Neurology Work Phone: Start: 12-18-2024 End: 12-18-2024 ambulatory Leonora Saldivar [place] Start: 12-11-2024 End: 12-11-2024 Patient encounter procedure Ashanti Mejía LOG HAUL OPERATOR-C -Cat Scan [facility] Work Phone: Start: 12-11-2024 End: 12-11-2024 ambulatory Ashanti Mejía LOG HAUL OPERATOR Facility:[facility] Start: 08-28-2024 End: 08-28-2024 ambulatory Ashanti Mejía LOG HAUL OPERATOR [place] Start: 07-31-2024 Review Leonora Saldviar P A-C Work Phone: [employer] Start: 07-24-2024 End: 07-24-2024 ambulatory LAURITA JAMISON Facility:[facility] Start: 07-24-2024 End: 07-24-2024 Patient encounter procedure Laurita Jamison [employer].LOGIST[employer] SUPPLY OFFICER Work Phone: OB/Gynecology Comment on above: Menopausal symptoms (Primary Dx); OAB (overactive bladder) Start: 07-13-2024 End: 07-13-2024 Patient encounter status Leonoraasha Saldivar PA-C Work Phone: [employer] [facility]; [facility] Start: 07-13-2024 End: 07-13-2024 Periodic preventive med est patient 40-64yrs Leonora Saldivar PA-C Work Phone: [facility] Start: 07-13-2024 Review Leonora Richter Work Phone: [facility] Start: 06-23-2024 End: 06-23-2024 ambulatory LEONORA MASSEY [facility] Start: 06-15-2024 Telephone encounter Laurita bush [employer]ER [employer].LOGISTICS SUPPLY OFFICER Work Phone: OB/Gynecology Comment on above: Results Start: 05-29-2024 End: 05-29-2024 ambulatory [facility] Facility:[facility] Start: 05-29-2024 End: 05-29-2024 Patient encounter procedure Laurita Wingcalf [employer].LOGISTICS SUPPLY OFFICER Work Phone: OB/Gynecology Comment on above: Unintended weight ga in (Primary Dx); OAB (overactive bladder); Forgetfulness; Hot flashes; Screening cholesterol level; Screening for diabetes mellitus; Screening for metabolic disorder; Encounter for vitamin deficiency screening Start: 05-22-2024 End: 05-22-2024 ambulatory LEONORA [facility] Start: 05-03-2024 ambulatory [facility] Start: 05-01-2024 End: 05-01-2024 Orders Leonora Saldivar PA-C Work [facility]: [facility] Start: 03-27-2024 End: 03-27-2024 ambulatory [facility] Facility:[facility] Start: 03-27-2024 End: 03-27-2024 Patient encounter procedure Laurita Shaheen [employer]LOGISTICS SUPPLY OFFICER Work Phone: OB/Gynecology Comment on above: Encounter for gyneco logical examination (general) (routine) without abnormal findings (Primary Dx); Hot flashes; Encounter for screening mammogram for malignant neoplasm of breast Start: 03-27-2024 End: 03-27-2024 Patient encounter status Laurita Jamison APRN.CNP Work Phone: [facility] Start: 01-24-2024 End: 01-24-2024 ambulatory PA Leonora Bean Work Phone: [facility] Work Phone: Start: 01-24-2024 End: 01-24-2024 Patient encounter procedure PA Leonora Saldivar Work Phone: [facility]-Pulmonary Services/Neurology Work Phone: Start: 01-07-2024 End: 01-07-2024 Patient encounter procedure Leonora Saldivar PA-C Work Phone: [facility] Start: 01-04-2024 End: 01-04-2024 Office outpatient visit 25 minutes Leonora Saldivar PA-C Work Phone: [facility] Start: 01-03-2024 End: 01-03-2024 Patient encounter procedure LINA Saldivar Work Phone: [facility] Work Phone: Start: 12-13-2023 Non-patient / Non-visit Dr. Jaylyn Adam Work Phone: [facility] Start: 12-13-2023 End: 12-13-[address] Carlin Adam Work Phone: [facility] Work Phone: Start: 12-13-2023 End: 12-13-[address] Carlin Adam Work Phone: [facility]-Cardiovascula r Services Work Phone: Start: 11-03-2023 End: 11-03-[address] [facility] Work Phone: Start: 10-26-2023 Non-patient / Non-visit [facility] Start: 10-25-2023 End: 10-25-[address] Carlin Adam Work Phone: [facility] Work Phone: Start: 10-25-2023 End: 10-25-[address] Carlin Adam Work Phone: [facility]-Pulmonary Services/Neurology Work Phone: Start: 09-15-2023 End: 09-15-[address] Carlin Adam Work Phone: [facility] Work Phone: Start: 08-27-2023 End: 08-27-2023 Medication Leonora Saldivar PA-C Work Phone: [facility] Start: 08-27-2023 End: 08-27-2023 Medication Leonora Saldivar PA-C Work Phone: [facility] Start: 08-26-2023 End: 08-26-2023 ambulatory [facility] Start: 08-09-2023 End: 08-09-2023 Office outpatient visit 40 minutes Leonora Saldivar PA-C Work Phone: [facility] Start: 07-22-2023 End: 07-22-2023 Orders Leonora Saldivar PA-C Work Phone: [facility] Start: 07-19-2023 End: 07-19-2023 Medication Leonora Saldivar PA-C Work Phone: [facility] Start: 07-13-2023 End: 07-13-2023 Patient encounter procedure Leonora Saldivar PA-C Work Phone: [facility] Start: 07-08-2023 ambulatory [facility] Start: 07-08-2023 End: 07-08-2023 ambulatory [facility] Start: 06-11-2023 End: 06-14-2023 Periodic preventive med est patient 40-64yrs Leonora Saldivar PA-C Work Phone: [employer]. Start: 06-11-2023 End: 06-14-2023 Physical examination Leonora Saldivar PA-C Work Phone: [facility]; [employer]. Start: 05-20-2023 End: 05-20-2023 Orders Leonora Saldivar PA-C Work Phone: [employer]. Start: 05-19-2023 End: 05-19-2023 Orders Leonora Saldivar PA-C Work Phone: [facility] Start: 04-26-2023 End: 04-26-2023 Orders Leonora Saldivar PA-C Work Phone: [facility] Start: 10-15-2021 End: 10-15-2021 Office outpatient visit 15 minutes Leonora Saldivar PA-C Work Phone: [facility] Start: 08-04-2021 End: 08-04-2021 Office outpatient visit 15 minutes Leonora Saldivar PA-C Work Phone: [facility] Start: 06-16-2019 End: 06-16-2019 Orders Leonora Saldivar PA-C Work Phone: [facility] Start: 01-26-2019 End: 01-26-2019 Office outpatient visit 15 minutes Leonora Saldivar PA-C Work Phone: [facility] Start: 01-12-2019 End: 01-12-2019 Historical Summary Leonora Saldivar PA-C Work Phone: [facility] Start: 11-29-2018 End: 11-29-2018 Office outpatient visit 15 minutes Leonora Saldivar PA-C Work Phone: [facility] Start: 10-05-2018 End: 10-05-2018 Telephone follow-up Leonora Saldivar PA-C Work Phone: [employer]. Start: 08-26-2018 End: 08-26-2018 Office outpatient visit 15 minutes Leonora Saldivar PA-C Work Phone: [employer]. Start: 06-03-2018 End: 06-03-2018 Office outpatient visit 15 minutes Leonora Saldivar PA-C Work Phone: [employer]. Start: 05-27-2018 End: 05-27-2018 Office outpatient visit 15 minutes Leonora Saldivar PA-C Work Phone: [employer]. Start: 01-25-2017 End: 01-25-2017 Orders Leonora Saldivar PA-C Work Phone: [employer]. Start: 01-13-2017 End: 01-13-2017 Orders Leonora Saldivar PA-C Work Phone: [employer]. Start: 01-05-2017 End: 01-05-2017 Orders Leonora Saldivar PA-C Work Phone: [employer]. Start: 01-04-2017 End: 01-04-2017 Patient encounter procedure Leonora Saldivar PA-C Work Phone: [facility] Start: 01-04-2017 End: 01-04-2017 Patient encounter status Leonora Saldivar PA-C Work Phone: [employer] Start: 12-12-2015 End: 12-12-2015 Medication Leonora Saldivar PA-C Work Phone: [employer]. Start: 12-09-2015 End: 12-09-2015 Office outpatient visit 15 minutes Leonora Saldivar PA-C Work Phone: [facility] Start: 10-09-2015 End: 10-09-2015 Patient encounter procedure Leonora Saldivar PA-C Work Phone: [facility] Start: 05-24-2014 End: 05-24-2014 Orders Leonora Saldivar PA-C [facility]: [facility] Start: 04-24-2014 End: 04-24-2014 Orders Leonora Saldivar PA-C Work Phone: [facility] [employer]. Start: 03-20-2014 End: 03-20-2014 Patient encounter procedure Leonora Saldivar PA-C Work [facility]: [facility]. Start: 02-26-2012 End: 02-26-2012 Patient encounter procedure Leonora Saldivar PA-C Work Phone: [facility]. Start: 02-26-2012 End: 02-26-2012 Routine gynecological examination Leonora Saldivar PA-C Work Phone: [facility] [employer]. Start: 02-12-2012 End: 02-12-2012 Medication Leonora Saldivar PA-C Work Phone: [place] [employer]. Start: 02-08-2012 End: 02-08-2012 Historical Summary Leonora Saldivar PA-C Work Phone: [facility]. Start: 02-08-2012 End: 02-08-2012 Patient encounter procedure Leonora Saldivar PA-C Work Phone: [place] [employer] Start: 05-12-2011 End: 05-12-2011 Patient encounter procedure Leonora Saldivar PA-C Work Phone: [facility] Follow-up encounter Leonora Saldana an PA-C Work Phone: [facility].; [facility]. Patient encounter status Lady Mcbride [facility].; [facility]. Patient encounter status Bridget Smith MA [facility].; [facility] Physical examination Leonora Sherman uvaldo PA-C Work Phone: [facility].; [facility] [employer] Routine gynecologica l examination Lady Bowers UNIVERSITY TEACHER [facility]. Procedures Date Procedure Procedure Detail Performing Clinician Start: 01-08-2025 End: 01-09-2025 Radex foot complete minimum 3 views Leonoraasha Saldivar PA-C Work Phone: Start: 12-11-2024 CT of chest Leonora Les arcos PA Work Phone: Start: 07-13-2024 End: 07-12-2024 Depression screening Leonora Linh Saldivar PA-C Work Phone: Start: 07-13-2024 End: 07-12-2024 Pos clin depres scrn f/u doc Leonora J Saldivar PA-C Work Phone: Start: 07-13-2024 End: 07-12-2024 Scr dep neg, no plan reqd Leonora Linh Saldivar PA-C Work Phone: Start: 06-23-2024 End: 06-23-2024 CBC panel - Blood by Automated count Bridget Smith MA Start: 06-23-2024 End: 06-23-2024 Lab findings surveillance Bridget Smith MA Comment on above: Results:. 112 in CMP Start: 06-23-2024 End: 06-23-2024 Lipid panel Bridget Smith MA Start: 06-11-2023 End: 07-09-2023 Brncdilat rspse spmtry pre&post-brncdilat admn Leonora Melton Saldivar PA-C Work Phone: Start: 06-11-2023 End: 06-16-2023 Chest x-ray Leonora Linh Saldivar PA-C Work Phone: Start: 06-11-2023 End: 06-11-2023 Depression screening Leonora Linh Saldivar PA-C Work Phone: Start: 06-11-2023 End: 06-11-2023 Scr dep neg, no plan reqd Leonora Linh Saldivar PA-C Work Phone: Start: 05-20-2023 End: 05-20-2023 Lab findings surveillance Elizabeth Beard MA Comment on above: Results:. 93 in CMP Start: 05-20-2023 End: 05-20-2023 Lipid panel Elizabeth Beard MA Comment on above: CHOL-236 HDL-63 TRI- 294 LDL-131 Start: 05-20-2023 End: 05-24-2023 Screening digital breast tomosynthesis bi Luke E Tenisha PA-C Work Phone: Start: 10-15-2021 End: 10-15-2021 Radex foot complete minimum 3 views Luke E Tenisha PA-C Work Phone: Start: 08-04-2021 End: 08-04-2021 Radex foot complete minimum 3 views Luke E Tenisha PA-C Work Phone: Start: 01-11-2019 End: 01-11-2019 Screening colonoscopy Elizabeth Beard MA Comment on above: [facility], polyps Start: 06-03-2018 End: 11-17-2018 Spmtry w/vc expiratory maranda w/wo mxml vol vntj Carlin Adam MD Work Phone: Start: 05-27-2018 End: 05-27-2018 Dexamethasone sodium phos Carlin Adam MD Work Phone: Start: 05-27-2018 End: 05-31-2018 Radiologic exam chest 2 views Carlin Adam MD Work Phone: Start: 01-04-2017 End: 03-07-2020 Myocardial spect multiple studies Rubio Craft LOG HAUL OPERATOR-C Work Phone: Start: 01-04-2017 End: 01-04-2017 Ecg routine ecg w/least 12 lds i&r only Rubio Craft LOG HAUL OPERATOR-C Work Phone: Start: 12-09-2015 End: 12-09-2015 Chest x-ray Barbra Blanchard MD Work Phone: Comment on above: pain in right upper anterior chest for several months; worse since fall 2 days ago; h/o COPD/asthma; h/o smoking Start: 03-20-2014 End: 03-20-2014 Tobacco use cessation ivntj counseling Barbra Blanchard MD Work Phone: Start: 02-26-2012 End: 02-26-2012 Microscopic examination of cervical Papanicolaou smear Elizabeth Beard MA Comment on above: Normal. Start: 02-08-2012 End: 07-25-2012 Radex spine cervical 4 or 5 views Barbra Blanchard MD Work Phone: Start: 05-12-2011 End: 05-15-2011 Radex cplx motion bdy sctj oth/thn urograpy uni Barbra Blanchard MD Work Phone: Start: 06-28-2007 End: 03-27-2024 H/O: section Previous delivery, antepartum condition or complication Laurita Jamison APRN.CNP Work Phone: section Elizabeth robins MA Comment on above: 2006 section Elizabeth robins MA Comment on above: 2006 section Bridget cary MA Comment on above: 2006 section Radha Lyons RN Comment on above: 2006 section Elizabeth robins MA Comment on above: 2006 H/O: hysterectomy H/O: hysterectomy Dr. Mich Adam Work Phone: History of total hysterectomy S/P total hysterectomy Leonora J Bill PA-C Work Phone: History of total hysterectomy S/P total hysterectomy Leonora Bill PA-C Work Phone: History of total hysterectomy S/P total hysterectomy Elizabeth Beard MA History of total hysterectomy S/P total hysterectomy Bridget Smith MA History of total hysterectomy S/P total hysterectomy Radha Lyons RN History of total hysterectomy S/P total hysterectomy Elizabeth Beard MA Ligation of fallopia n tube Elizabeth Beard MA Ligation of fallopia n tube Elizabeth Beard MA Ligation of fallopia n tube Bridget Smith MA Ligation of fallopia n tube Radha Lyons RN Ligation of fallopia n tube Elizabeth Beard MA Total hysterectomy Elizabeth H ood MA Total hysterectomy Elizabeth H ood MA Total hysterectomy Bridget benitez MA Total hysterectomy Radha Lyons RN Total hysterectomy Elizabeth bear MA Plan of Treatment Date Care Activity Detail Author Start: 07-22-2033 Urine microalbumin profile DTaP,Tdap,Td Vaccine (2 - Td or Tdap) [facility] Start: 07-16-2025 Patient encounter procedure Medical; PHYSICAL - [facility] Start: 16-Jul-2025 10:00-04:00 BENOIT Saldivar Appointment [facility] Start: 07-02-2025 Blood count complete auto&auto difrntl wbc CBC, PLATELETS & AUT DIFF (F) (21584) Start: 02-Jul-2025 [facility]; [facility] Start: 07-02-2025 Comprehensive metabo lic panel CMP w/ GFR* ([id number]) Start: 02-Jul-2025 [facility]; [facility] Start: 07-02-2025 Hemoglobin glycosyla aura a1c HEMOGLOBIN A1C* ([id number]) Start: 02-Jul-2025 [facility]; [facility]. Start: 07-02-2025 Lipid panel LIPID PANEL (8 0061) Start: 02-Jul-2025 [facility]; [facility]. Start: 07-02-2025 Nursing evaluation o f patient and report Medical; Nurse visit - FASTING LABS-[facility] Start: 02-Jul-2025 10:20-04:00 NURSE, FLOAT Appointment [facility] Start: 04-16-2025 Patient referral [facility] Work Phone: Start: 04-01-2025 Polysomnography [facility] Start: 03-29-2025 End: 03-29-2025 Patient encounter procedure 03/29/2025 11:00 AM EDT Office Visit OB/Gynecology [address] [place], [place] [id number] Laurita Jamison APRN.LOGISTICS SUPPLY OFFICER [address] [place] [address] Annual OB/Gynecology Comment on above: Annual Start: 03-23-2025 Echo tthrc r-t 2d w/wom-mode compl spec&colr d TTE W/DOPPLER COMPLETE [facility] Start: 01-08-2025 Radex foot complete minimum 3 views Foot, Right Complete x-ray ([id number]) Start: 08-Jan-2025 Intent [facility]. Start: 01-08-2025 Patient encounter procedure Medical; EXTENDED RTN - 6 MO RTN [facility]. Start: 08-Jan-2025 10:50-05:00 BENOIT Saldivar Appointment Request [facility]. Start: 07-13-2024 Patient encounter procedure Medical; PHYSICAL - [facility]. Start: 13-Jul-2024 09:50-04:00 BENOIT Saldivar Appointment Request [facility]. Start: 07-09-2024 Covid-19 Vaccine ( season) Covid-19 Vaccine () [facility] Start: 07-09-2024 Influenza vaccination [facility] Start: 07-03-2024 Patient encounter procedure Medical; PHYSICAL - [facility]. Start: 03-Jul-2024 10:50-04:00 BENOIT Saldivar Appointment Request [facility]. Start: 06-23-2024 Blood count complete auto&auto difrntl wbc CBC, PLATELETS & AUT DIFF (F) ([id number]) Start: 23-Jun-2024 Request [facility]. Start: 06-23-2024 Comprehensive metabo lic panel CMP w/ GFR* ([id number]) Start: 23-Jun-2024 [facility]; [facility] Start: 06-23-2024 Lipid panel LIPID PANEL (8 0061) Start: 23-Jun-2024 Request [facility]. Start: 06-23-2024 Nursing evaluation o f patient and report Medical; Nurse visit - fasting labs - [facility] Start: 23-Jun-2024 08:20-04:00 NURSE, MARANDAAT Appointment Request [facility] Start: 05-29-2024 End: 08-28-2024 25-hydroxyvitamin D3 [Mass/volume] in Serum or Plasma VITAMIN D 25 HYDROXY Lab Routine Encounter for vitamin deficiency screening Expected: 05/29/2024, Expires: 08/28/2024 [facility] Work Phone: Comment on above: Expected: 05/29/2024 , Expires: 08/28/2024 Start: 05-29-2024 End: 08-28-2024 Comprehensive metabolic 2000 panel - Serum or Plasma COMPREHENSIVE METABOLIC PANEL Lab Routine Screening for diabetes mellitus Screening for metabolic disorder Expected: 05/29/2024, Expires: 08/28/2024 [facility] Comment on above: Expected: 05/29/2024 , Expires: 08/28/2024 Start: 05-29-2024 End: 08-28-2024 Follitropin [Units/volume] in Serum or Plasma FOLLICLE STIMULATING HORMONE Lab Routine Hot flashes Expected: 05/29/2024, Expires: 08/28/2024 [facility] Comment on above: Expected: 05/29/2024 , Expires: 08/28/2024 Start: 05-29-2024 End: 08-28-2024 Hemoglobin A1c in Blood HEMOGLOBIN A1C Lab Routine Screening for diabetes mellitus Expected: 05/29/2024, Expires: 08/28/2024 [facility] Comment on above: Expected: 05/29/2024 , Expires: 08/28/2024 Start: 05-29-2024 End: 08-28-2024 Insulin [Units/volume] in Serum or Plasma INSULIN ASSAY BLOOD Lab Routine Screening for diabetes mellitus Expected: 05/29/2024, Expires: 08/28/2024 [facility] Comment on above: Expected: 05/29/2024 , Expires: 08/28/2024 Start: 05-29-2024 End: 08-28-2024 Lipid 1996 panel - Serum or Plasma LIPID PANEL BASIC Lab Routine Screening cholesterol level Expected: 05/29/2024, Expires: 08/28/2024 [facility] Comment on above: Expected: 05/29/2024 , Expires: 08/28/2024 Start: 05-29-2024 End: 08-28-2024 Thyrotropin [Units/volume] in Serum or Plasma THYROID STIMULATING HORMONE Lab Routine Unintended weight gain Expected: 05/29/2024, Expires: 08/28/2024 [facility] Comment on above: Expected: 05/29/2024 , Expires: 08/28/2024 Start: 05-21-2024 Screening for malign ant neoplasm of breast Mammogram Screening [facility] Start: 05-01-2024 End: 05-01-2024 Patient encounter procedure 05/01/2024 12:45 PM EDT Office Visit OB/Gynecology [address] [place] [address] Laurita Jamison APRN.LOGISTICS SUPPLY OFFICER [address] [place] [address] Follow up OB/Gynecology Comment on above: Follow up Start: 01-04-2024 Patient encounter procedure Medical; EXTENDED RTN - 4 mo rtn [facility], [employer]. Start: 04-Jan-2024 10:50 BENOIT Saldivar Appointment Request [facility], [employer]. Start: 11-08-2023 Behavioral Health Screening Behavioral Health Screening [facility] Start: 11-03-2023 Patient referral [facility] Work Phone: Start: 07-09-2023 Covid-19 Vaccine () Covid-19 Vaccine () [facility] Start: 05-19-2023 Blood count complete auto&auto difrntl wbc [employer], [employer] [place], [employer]. Start: 07-03-2022 Diabetes Screening Diabetes Screenin g [facility] Start: 01-12-2022 Screening for malign ant neoplasm of cervix Pap Testing [facility] Start: 01-13-2020 Screening for malign ant neoplasm of cervix Cervical Cancer Screening [facility] Start: 2019 Lipid panel Lipid Screening [facility] Start: 2019 Screening for malign ant neoplasm of colon [facility] Start: 2004 Screening for malign ant neoplasm of cervix HPV Testing [facility] Start: 2004 Zoledronic acid therapy Alpha- 1 Antitrypsin Deficiency Screening [facility] Start: 1993 Hepatitis B Vaccine (1 of 3 - 19+ 3-dose series) Hepatitis B Vaccine (1 of 3 - + 3-dose series) [facility] Start: 1992 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 Disease Visit Annual PCP Team Chronic Disease Visit [facility] Start: 1992 Anxiety Screening Anxiety Screening [facility] Start: 1992 Depression Screening Depression Scre ening [facility] Start: 1992 HIV screening HIV Screening [facility] Start: 1980 Pneumococcal vaccination Pneum ococcal Vaccine (1 of 2 - PCV) [facility] CT Chest [facility] Patient referral [facility] Work Phone: dexAMETHasone so d phos (bulk) 100 % powder Ordered: 27-May-2018 MD Carlin Adam [facility], [employer] [facility] Immunizations Immunization Date Immunization Notes Care Provider Otto luu 07-22-2023 tetanus toxoid, redu beatriz diphtheria toxoid, and acellular pertussis vaccine, adsorbed Leonora Saldivar PA-C Work Phone: [facility] Comment on above: [facility] Ezequiel watts: * Tdap (06/13/21) 01-24-2009 tetanus and diphther ia toxoids, adsorbed, preservative free, for adult use (2 Lf of tetanus toxoid and 2 Lf of diphtheria toxoid) Leonora Saldivar PA-C Work Phone: [facility] [employer] [facility], [employer]. Payers Date Payer Category Payer Self-pay [id number] 2022 Medicaid [facility] MEDICAID [facility] COMMUNITY PLAN [place] [id number] 2022-Present [phone] [address] [place] [address] Medicaid [id number] 2022 Unknown [id number] 1974 Unknown [id number] 2.16.840.1.324259.3.579.2. 297 1974 Unknown [id number] 2.16.840.1.485073.3.579.2. 297 1974 Unknown [id number] 2.16.840.1.585595.3.579.2. 297 1974 Unknown [id number] 2.16.840.1.803080.3.579.2. 297 1974 Unknown [id number] 2.16.840.1.572450.3.579.2. 651 1974 Unknown [id number] 2.16.840.1.317111.3.579.2. 651 1974 Unknown [id number] 2.16.840.1.564310.3.579.2. 651 Private Health Insurance [employer] [id number] Unknown [facility] Unknown [id number] 2.16.840.1.507891.3.579.2. 462 Unknown [id number] 2.16.840.1.783976.3.579.2. 462 Unknown [id number] 2.16.840.1.375249.3.579.2. 462 Unknown [id number] 2.16.840.1.441785.3.579.2. 462 Unknown [id number] 2.16.840.1.310176.3.579.2. 462 Unknown [id number] 2.16.840.1.134051.3.579.2. 462 Unknown [id number] 2.16.840.1.608087.3.579.2. 462 Unknown [id number] 2.16.840.1.164692.3.579.2. 462 Unknown [id number] 2.16.840.1.370897.3.579.2. 462 Unknown [id number] 2.16.840.1.445518.3.579.2. 462 Unknown [id number] 2.16.840.1.468974.3.579.2. 462 Unknown [id number] 2.16.840.1.753453.3.579.2. 462 Social History Date Type Detail Facility Start: 09-15-2023 End: 01-03-2024 Tobacco smoking status DCIS Unknown if ever smoked [facility] Start: 01-10-2019 Non-smoker [facility] Start: 1975 Sex Assigned At Female W [facility] Alcohol Use: Alcohol Use: ; Occasional alcohol use. 7 or fewer drinks per week. [employer]. Start: 03-27-2024 End: 07-24-2024 Caffeine Use Caffeine Use [employer] Tobacco Use: Tobacco Use: ; F ormer smoker. [facility] Occasional alcohol use [facility] Work Phone: Smokes tobacco daily [employer] [facility] Work Phone: Smokes 1 pack of cigarettes per day [employer] Work Phone: Smoker [employer] [facility] Work Phone: Start: 03-27-2024 End: 08-28-2024 Ex-smoker [employer] Work Phone: History of tobacco use Cigarette Smoker [facility] History of tobacco use Passive smoker [facility] Start: 03-27-2024 End: 07-24-2024 Tobacco use and exposure Smokeless tobacco non-user [facility] Start: 03-27-2024 End: 07-24-2024 Alcohol intake Current non-drinker of alcohol (finding) [facility] Start: 03-27-2024 End: 07-24-2024 Tobacco use panel [facility] National Score (1-100), lower number is lower risk 83 [facility] Start: 1975 Sex Assigned At Not on file C [facility] Clinical Notes 10-26-2023 to 03-05-2025 Note Date & Type Note Facility 03-05-2025 Evaluation note Diagnosis Onset Date Resolution Daytime hypersomnia acute March 05, 2025 12:53pm Obesity acute March 05 12:53pm Dyspnea chronic March 05 12:53pm Fibromyalgia chronic March 05, 2025 12:53pm Smoking greater than 20 pack years chronic March 05, 2025 12:53pm [facility] Work Phone: 1(591) 887-247504-28-2025 Evaluation note* Diagnosis Onset Date Resolution Status Admit Date Daytime hypersomnia acute March 05, 2025 12:53pm Obesity acute March 05 12:53pm Dyspnea chronic March 05 12:53pm Fibromyalgia chronic March 05, 2025 12:53pm Smoking greater than 20 pack years chronic March 05, 2025 12:53pm Diastolic dysfunction acute Thomas e 2024 11:13am Obesity acute April 16, 2025 11:13am Obstructive sleep apnea acute J une 2024 11:13am Fibromyalgia chronic April 16 11:13am Smoking greater than 20 pack years chronic April 16, 2025 1 1:13am [facility] Work Phone: 1(176) 614-814209-16-2024 NoteHNO ID: [id number] Author: LAURITA JAMISON APRN.LOGISTICS SUPPLY OFFICER Service: ? Author Type: Nurse Practitioner Type: Progress Notes Filed: 07/24/2024 13:32 Note Text: Lillie Holland is a 48 year old female who presents for a lab and medication follow up. HPI: Patient is here to discuss her lab results. And to evaluate how her medication is working, she was given estrace 2 mg tablet and progesterone 100 mg tablet. She has not noticed a difference with the medication. She is having breast tenderness, especially more in the mornings. 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 History Comments: Sexual Activity: Yes; Male Contraception: Tubal Ligation PAST MEDICAL HISTORY Diagnosis Date Abnormal uterine bleeding (AUB) 01/12/2017 COPD (chronic obstructive pulmonary disease) (HCC) Dysthymic disorder Depression (non-psychotic), Endometriosis Fibromyalgia Hot flashes 05/29/2024 Menorrhagia OAB (overactive bladder) 05/29/2024 Obstructive chronic bronchitis with exacerbation (HCC) COPD Unintended weight gain 05/29/2024 PAST SURGICAL HISTORY Procedure Laterality Date DELIVERY ONLY , low cervical 03/13/00, 07/28/07 LIGATE FALLOPIAN TUBE Bilateral PAST SURGICAL HISTORY OF 01/12/2017 Endometrial biopsy PAST SURGICAL HISTORY OF 2014 extraction of wisdom teeth PAST SURGICAL HISTORY OF 06/07/2017 RAVH/BSO per Dr Blair FAMILY HISTORY Problem Relation Age of Onset Osteoporosis Mother Alcohol/Drug Father RECOVERING ALCOHOLIC Asthma Father Diabetes Paternal Grandmother Hypertension Paternal Grandmother Breast Cancer Maternal Aunt Psychiatry Paternal Aunt COMMITTED SUICIDE Social History Tobacco Use Smoking status: Former Current packs/day: 0.50 Average packs/day: 0.5 packs/day for 17.0 years (8.5 ttl pk-yrs) Types: Cigarettes Passive exposure: Current Smokeless tobacco: Never Vaping Use Vaping status: Never Used Substance Use Topics Alcohol use: No Drug use: No Current Outpatient Medications Medication Sig DULoxetine (CYMBALTA) 60 mg capsule TAKE 1 CAPSULE BY MOUTH ONCE DAILY Oral for 30 Days zolpidem (AMBIEN) 5 mg tablet at bedtime as needed. oxybutynin ER (DITROPAN XL) 10 mg 24 hr tablet Take 1 tablet by mouth once daily. progesterone micronized (PROMETRIUM) 100 mg capsule Take 1 capsule by mouth daily at bedtime. estradiol (ESTRACE) 2 mg tablet Take 1 tablet by mouth once daily. calcium carbonate/vitamin D3 (CALCIUM 600 + D ORAL) Take by mouth. omeprazole (PRILOSEC) 20 mg capsule Take by mouth. TRELEGY ELLIPTA 200-62.5-25 mcg inhalation powder Inhale 1 Puff as instructed once daily. gabapentin (NEURONTIN) 300 mg capsule take one tb at bedtime mv-min/iron/folic/calcium/vitK (WOMEN'S MULTIVITAMIN ORAL) Take by mouth once daily. Docusate Sodium 100 mg tab Take by mouth twice daily. acetaminophen (TYLENOL ORAL) Take by mouth every 6 hours as needed. IBUPROFEN ORAL Take by mouth as needed. No current facility-administered medications for this visit. Allergies As of Date: 07/24/2024 Allergen Noted Reaction BACTRIM [SULFAMETHOXAZOLE-TRIMETH*03/27/2008 GI Upset Fully Assessed 07/24/2024 REVIEW OF SYSTEMS Abdomen: No bloating, early satiety, indigestion, or increased flatulence. No abdominal pain, nausea, vomiting, diarrhea, or constipation. Bladder: No dysuria, gross hematuria, urinary frequency, urinary urgency, or incontinence. Breast: No breast lumps, nipple d/c, overlying skin changes, redness or skin retraction and +tenderness. Expanded ROS: N/A Allergies and current medication updated:Yes SENSITIVE EXAM: NA EXAM: BP 120/70 Wt 168 lb (76.2kg) LMP 01/09/2008 GENERAL: pleasant, female in no apparent distress HEENT: Normocephalic, atraumatic, mucus membranes moist, and no lesions CHEST: Normal inspiratory effort NEURO: alert and oriented x3,exam grossly non-focal EXTREMITIES: normal ASSESSMENT/PLAN: 1. Menopausal symptoms - ICD9: 627.2, ICD10: N95.1 (primary diagnosis) Notice a decrease in menopause symptoms Continue with HRT 2. OAB (overactive bladder) - ICD9: 596.51, ICD10: N32.81 Doing well with medication, no leakage or incontinence Laurita Jamison APRN.CNP Medical Decision Making: Problems: Low: Stable chronic illness Risk: Low: Low risk from testing/treatment Medical Decision Making [facility] of Present illness Narrative* Laurita Jamison APRN.CNP - 07/24/2024 12:44 PM EDT Lillie Holland is a 48 year old female who presents for a lab and medication follow up. HPI: Patient is here to discuss her lab results. And to evaluate how her medication is working, shewas given estrace 2 mg tablet and progesterone 100 mg tablet. She has not noticed a difference withthe medication. She is having breast tenderness, especially more in the mornings. 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 History Comments: Sexual Activity: Yes; Male Contraception: Tubal Ligation PAST MEDICAL HISTORY Diagnosis Date Abnormal uterine bleeding (AUB) 01/12/2017 COPD (chronic obstructive pulmonary disease) (HCC) Dysthymic disorder Depression (non-psychotic), Endometriosis Fibromyalgia Hot flashes 05/29/2024 Menorrhagia OAB (overactive bladder) 05/29/2024 Obstructive chronic bronchitis with exacerbation (HCC) COPD Unintended weight gain 05/29/2024 PAST SURGICAL HISTORY Procedure Laterality Date DELIVERY ONLY , low cervical 03/13/00, 07/28/07 LIGATE FALLOPIAN TUBE Bilateral PAST SURGICAL HISTORY OF 01/12/2017 Endometrial biopsy PAST SURGICAL HISTORY OF 2014 extraction of wisdom teeth PAST SURGICAL HISTORY OF 06/07/2017 RAVH/BSO per Dr Blair FAMILY HISTORY Problem Relation Age of Onset Osteoporosis Mother Alcohol/Drug Father RECOVERING ALCOHOLIC Asthma Father Diabetes Paternal Grandmother Hypertension Paternal Grandmother Breast Cancer Maternal Aunt Psychiatry Paternal Aunt COMMITTED SUICIDE Social History Tobacco Use Smoking status: Former Current packs/day: 0.50 Average packs/day: 0.5 packs/day for 17.0 years (8.5 ttl pk-yrs) Types: Cigarettes Passive exposure: Current Smokeless tobacco: Never Vaping Use Vaping status: Never Used Substance Use Topics Alcohol use: No Drug use: No Current Outpatient Medications Medication Sig DULoxetine (CYMBALTA) 60 mg capsule TAKE 1 CAPSULE BY MOUTH ONCE DAILY Oral for 30 Days zolpidem (AMBIEN) 5 mg tablet at bedtime as needed. oxybutynin ER (DITROPAN XL) 10 mg 24 hr tablet Take 1 tablet by mouth once daily. progesterone micronized (PROMETRIUM) 100 mg capsule Take 1 capsule by mouth daily at bedtime. estradiol (ESTRACE) 2 mg tablet Take 1 tablet by mouth once daily. calcium carbonate/vitamin D3 (CALCIUM 600 + D ORAL) Take by mouth. omeprazole (PRILOSEC) 20 mg capsule Take by mouth. TRELEGY ELLIPTA 200-62.5-25 mcg inhalation powder Inhale 1 Puff as instructed once daily. gabapentin (NEURONTIN) 300 mg capsule take one tb at bedtime mv-min/iron/folic/calcium/vitK (WOMEN'S MULTIVITAMIN ORAL) Take by mouth once daily. Docusate Sodium 100 mg tab Take by mouth twice daily. acetaminophen (TYLENOL ORAL) Take by mouth every 6 hours as needed. IBUPROFEN ORAL Take by mouth as needed. No current facility-administered medications for this visit. Allergies As of Date: 07/24/2024 Allergen Noted Reaction BACTRIM [SULFAMETHOXAZOLE-TRIMETH*03/27/2008 GI Upset Fully Assessed 07/24/2024 REVIEW OF SYSTEMS Abdomen: No bloating, early satiety, indigestion, or increased flatulence. No abdominal pain, nausea, vomiting, diarrhea, or constipation. Bladder: No dysuria, gross hematuria, urinary frequency, urinary urgency, or incontinence. Breast: No breast lumps, nipple d/c, overlying skin changes, redness or skin retraction and +tenderness. Expanded ROS: N/A Allergies and current medication updated:Yes SENSITIVE EXAM: NA EXAM: BP 120/70 Wt 168 lb (76.2kg) LMP 01/09/2008 GENERAL: pleasant, female in no apparent distress HEENT: Normocephalic, atraumatic, mucus membranes moist, and no lesions CHEST: Normal inspiratory effort NEURO: alert and oriented x3,exam grossly non-focal EXTREMITIES: normal ASSESSMENT/PLAN: 1. Menopausal symptoms - ICD9: 627.2, ICD10: N95.1 (primary diagnosis) Notice a decrease in menopause symptoms Continue with HRT 2. OAB (overactive bladder) - ICD9: 596.51, ICD10: N32.81 Doing well with medication, no leakage or incontinence Laurita Jamison APRN.CNP Medical Decision Making: Problems: Low: Stable chronic illness Risk: Low: Low risk from testing/treatment Medical Decision Making Level: 3 - Low [facility] Tele[facility] encounter Note * Telephone Encounter - Leonor Hernandez RN - 06/16/2024 10:01 AM EDT No lab results found per [facility]. Note in patient's chart states to call after 4:00 PM. Leonor Hernandez RN [facility]08-09-2024 Miscellaneous Notes* Telephone Encounter - Leonor Hernandez RN - 06/16/2024 10:01 AM EDT No lab results found per [facility]. Note in patient's chart states to call after 4:00 PM. Leonor Hernandez RN * Telephone Encounter - Leonor Hernandez RN - 06/15/2024 3:47 PM EDT Request faxed. Leonor Hernandez RN * Telephone Encounter - Laurita Jamison APRN.CNP - 06/15/2024 3:31 PM EDT Can we contact [facility] to see if they have any labs results since 05/29. Pt was to get labs done there and I haven't receive anything. Laurita Jamison APRN.[place] documented [facility] Telephone encounter Note * Telephone Encounter - Leonor Hernandez RN - 06/15/2024 3:47 PM EDT Request faxed. Leonor Hernandez RN [facility]08-08-2024 Telephone encounter Note* Telephone Encounter - Laurita Jamison APRN.CNP - 06/15/2024 3:31 PM EDT Can we contact [facility] to see if they have any labs results since 05/29. Pt was to get labs done there and I haven't receive anything. Laurita Jamison APRN.[place] [facility]07-22-2024 NoteHNO ID: [id number] Author: LAURITA JAMISON APRN.CNP Service: ? Author Type: Nurse Practitioner Type: Progress Notes Filed: 05/29/2024 15:01 Note Text: Lillie Holland is a 48 year old female who presents for medication follow up HPI: she has not notice a difference with the estrace decreasing to hot flashes. She also is concerned about the unexplained weight gain, fatigue, and urinary urgency. 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 History Comments: Sexual Activity: Yes; Male Contraception: Tubal Ligation PAST MEDICAL HISTORY Diagnosis Date Abnormal uterine bleeding (AUB) 01/12/2017 COPD (chronic obstructive pulmonary disease) (HCC) Dysthymic disorder Depression (non-psychotic), Endometriosis Fibromyalgia Menorrhagia Obstructive chronic bronchitis with exacerbation (HCC) COPD PAST SURGICAL HISTORY Procedure Laterality Date DELIVERY ONLY , low cervical 03/13/00, 07/28/07 LIGATE FALLOPIAN TUBE Bilateral PAST SURGICAL HISTORY OF 01/12/2017 Endometrial biopsy PAST SURGICAL HISTORY OF 2014 extraction of wisdom teeth PAST SURGICAL HISTORY OF 06/07/2017 RAVH/BSO per Dr Blair FAMILY HISTORY Problem Relation Age of Onset Osteoporosis Mother Alcohol/Drug Father RECOVERING ALCOHOLIC Asthma Father Diabetes Paternal Grandmother Hypertension Paternal Grandmother Breast Cancer Maternal Aunt Psychiatry Paternal Aunt COMMITTED SUICIDE Social History Tobacco Use Smoking status: Former Packs/day: 0.50 Years: 17.00 Additional pack years: 0.00 Total pack years: 8.50 Types: Cigarettes Passive exposure: Current Smokeless tobacco: Never Vaping Use Vaping Use: Never used Substance Use Topics Alcohol use: No Drug use: No Current Outpatient Medications Medication Sig DULoxetine (CYMBALTA) 60 mg capsule TAKE 1 CAPSULE BY MOUTH ONCE DAILY Oral for 30 Days zolpidem (AMBIEN) 5 mg tablet at bedtime as needed. calcium carbonate/vitamin D3 (CALCIUM 600 + D ORAL) Take by mouth. omeprazole (PRILOSEC) 20 mg capsule Take by mouth. TRELEGY ELLIPTA 200-62.5-25 mcg inhalation powder Inhale 1 Puff as instructed once daily. estradiol (ESTRACE) 1 mg tablet Take 1 tablet by mouth once daily. gabapentin (NEURONTIN) 300 mg capsule take one tb at bedtime mv-min/iron/folic/calcium/vitK (WOMEN'S MULTIVITAMIN ORAL) Take by mouth once daily. Docusate Sodium 100 mg tab Take by mouth twice daily. acetaminophen (TYLENOL ORAL) Take by mouth every 6 hours as needed. IBUPROFEN ORAL Take by mouth as needed. No current facility-administered medications for this visit. Allergies As of Date: 05/29/2024 Allergen Noted Reaction BACTRIM [SULFAMETHOXAZOLE-TRIMETH*03/27/2008 GI Upset Fully Assessed 05/29/2024 REVIEW OF SYSTEMS Expanded ROS: N/A Allergies and current medication updated:Yes EXAM: LMP 01/09/2008 GENERAL: pleasant, female in no apparent distress HEENT: Normocephalic, atraumatic, mucus membranes moist, and no lesions CHEST: Normal inspiratory effort NEURO: alert and oriented x3,exam grossly non-focal EXTREMITIES: normal ASSESSMENT/PLAN: 1. Unintended weight gain - ICD9: 783.1, ICD10: R63.5 (primary diagnosis) - THYROID STIMULATING HORMONE 2. OAB (overactive bladder) - ICD9: 596.51, ICD10: N32.81 - OXYBUTYNIN CHLORIDE ER 10 MG TABLET,EXTENDED RELEASE 24 HR 3. Forgetfulness - ICD9: 780.99, ICD10: R68.89 4. Hot flashes - ICD9: 782.62, ICD10: R23.2 - FOLLICLE STIMULATING HORMONE - Increased estrace to 2 mg - Prometrium 100 mg 5. Screening cholesterol level - ICD9: V77.91, ICD10: Z13.220 - LIPID PANEL BASIC 6. Screening for diabetes mellitus - ICD9: V77.1, ICD10: Z13.1 - INSULIN ASSAY BLOOD - HEMOGLOBIN A1C - COMPREHENSIVE METABOLIC PANEL 7. Screening for metabolic disorder - ICD9: V77.99, ICD10: Z13.228 - COMPREHENSIVE METABOLIC PANEL 8. Encounter for vitamin deficiency screening - ICD9: V77.99, ICD10: Z13.21 - VITAMIN D 25 HYDROXY Having labs done at [facility] Will notify patient of test results. Laurita Jamison APRN.CNP Medical Decision Making: Problems: Moderate: New problem with uncertain prognosis Data: Unique test(s) ordered: 3+ Risk: Moderate: Drug management Medical Decision Making Level: 4 - Moderate .[facility]07-22-2024 History of Present illness Narrative* Laurita Jamison APRN.CNP - 05/29/2024 2:07 PM EDT Lillie Holland is a 48 year old female who presents for medication follow up HPI: she has not notice a difference with the estrace decreasing to hot flashes. She also is concerned about the unexplained weight gain, fatigue, and urinary urgency. 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 History Comments: Sexual Activity: Yes; Male Contraception: Tubal Ligation PAST MEDICAL HISTORY Diagnosis Date Abnormal uterine bleeding (AUB) 01/12/2017 COPD (chronic obstructive pulmonary disease) (HCC) Dysthymic disorder Depression (non-psychotic), Endometriosis Fibromyalgia Menorrhagia Obstructive chronic bronchitis with exacerbation (HCC) COPD PAST SURGICAL HISTORY Procedure Laterality Date DELIVERY ONLY , low cervical 03/13/00, 07/28/07 LIGATE FALLOPIAN TUBE Bilateral PAST SURGICAL HISTORY OF 01/12/2017 Endometrial biopsy PAST SURGICAL HISTORY OF 2014 extraction of wisdom teeth PAST SURGICAL HISTORY OF 06/07/2017 RAVH/BSO per Dr Blair FAMILY HISTORY Problem Relation Age of Onset Osteoporosis Mother Alcohol/Drug Father RECOVERING ALCOHOLIC Asthma Father Diabetes Paternal Grandmother Hypertension Paternal Grandmother Breast Cancer Maternal Aunt Psychiatry Paternal Aunt COMMITTED SUICIDE Social History Tobacco Use Smoking status: Former Packs/day: 0.50 Years: 17.00 Additional pack years: 0.00 Total pack years: 8.50 Types: Cigarettes Passive exposure: Current Smokeless tobacco: Never Vaping Use Vaping Use: Never used Substance Use Topics Alcohol use: No Drug use: No Current Outpatient Medications Medication Sig DULoxetine (CYMBALTA) 60 mg capsule TAKE 1 CAPSULE BY MOUTH ONCE DAILY Oral for 30 Days zolpidem (AMBIEN) 5 mg tablet at bedtime as needed. calcium carbonate/vitamin D3 (CALCIUM 600 + D ORAL) Take by mouth. omeprazole (PRILOSEC) 20 mg capsule Take by mouth. TRELEGY ELLIPTA 200-62.5-25 mcg inhalation powder Inhale 1 Puff as instructed once daily. estradiol (ESTRACE) 1 mg tablet Take 1 tablet by mouth once daily. gabapentin (NEURONTIN) 300 mg capsule take one tb at bedtime mv-min/iron/folic/calcium/vitK (WOMEN'S MULTIVITAMIN ORAL) Take by mouth once daily. Docusate Sodium 100 mg tab Take by mouth twice daily. acetaminophen (TYLENOL ORAL) Take by mouth every 6 hours as needed. IBUPROFEN ORAL Take by mouth as needed. No current facility-administered medications for this visit. Allergies As of Date: 05/29/2024 Allergen Noted Reaction BACTRIM [SULFAMETHOXAZOLE-TRIMETH*03/27/2008 GI Upset Fully Assessed 05/29/2024 REVIEW OF SYSTEMS Expanded ROS: N/A Allergies and current medication updated:Yes EXAM: LMP 01/09/2008 GENERAL: pleasant, female in no apparent distress HEENT: Normocephalic, atraumatic, mucus membranes moist, and no lesions CHEST: Normal inspiratory effort NEURO: alert and oriented x3,exam grossly non-focal EXTREMITIES: normal ASSESSMENT/PLAN: 1. Unintended weight gain - ICD9: 783.1, ICD10: R63.5 (primary diagnosis) - THYROID STIMULATING HORMONE 2. OAB (overactive bladder) - ICD9: 596.51, ICD10: N32.81 - OXYBUTYNIN CHLORIDE ER 10 MG TABLET,EXTENDED RELEASE 24 HR 3. Forgetfulness - ICD9: 780.99, ICD10: R68.89 4. Hot flashes - ICD9: 782.62, ICD10: R23.2 - FOLLICLE STIMULATING HORMONE - Increased estrace to 2 mg - Prometrium 100 mg 5. Screening cholesterol level - ICD9: V77.91, ICD10: Z13.220 - LIPID PANEL BASIC 6. Screening for diabetes mellitus - ICD9: V77.1, ICD10: Z13.1 - INSULIN ASSAY BLOOD - HEMOGLOBIN A1C - COMPREHENSIVE METABOLIC PANEL 7. Screening for metabolic disorder - ICD9: V77.99, ICD10: Z13.228 - COMPREHENSIVE METABOLIC PANEL 8. Encounter for vitamin deficiency screening - ICD9: V77.99, ICD10: Z13.21 - VITAMIN D 25 HYDROXY Having labs done at [facility] Will notify patient of test results. Laurita Jamison APRN.CNP Medical Decision Making: Problems: Moderate: New problem with uncertain prognosis Data: Unique test(s) ordered: 3+ Risk: Moderate: Drug management Medical Decision Making Level: 4 - Moderate . [facility] NoteHNO ID: [id number] Author: LAURITA JAMISON APRN.CNP Service: ? 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 History Comments: Sexual Activity: Yes; Male Contraception: Tubal Ligation PAST MEDICAL HISTORY Diagnosis Date Abnormal uterine bleeding (AUB) 01/12/2017 COPD (chronic obstructive pulmonary disease) (HCC) Dysthymic disorder Depression (non-psychotic), Endometriosis Fibromyalgia Menorrhagia Obstructive chronic bronchitis with exacerbation (HCC) COPD PAST SURGICAL HISTORY Procedure Laterality Date DELIVERY ONLY , low cervical 03/13/00, 07/28/07 LIGATE FALLOPIAN TUBE Bilateral PAST SURGICAL HISTORY OF 01/12/2017 Endometrial biopsy PAST SURGICAL HISTORY OF 2014 extraction of wisdom teeth PAST SURGICAL HISTORY OF 06/07/2017 RAVH/BSO per Dr Blair FAMILY HISTORY Problem Relation Age of Onset Osteoporosis Mother Alcohol/Drug Father RECOVERING ALCOHOLIC Asthma Father Diabetes Paternal Grandmother Hypertension Paternal Grandmother Breast Cancer Maternal Aunt Psychiatry Paternal Aunt COMMITTED SUICIDE SOCIAL HISTORY Social History Tobacco Use Smoking status: Former Packs/day: 0.50 Years: 17.00 Additional pack years: 0.00 Total pack years: 8.50 Types: Cigarettes Passive exposure: Current Smokeless tobacco: Never Vaping Use Vaping Use: Never used Substance Use Topics Alcohol use: No Drug use: No REVIEW OF SYSTEMS Abdomen: No abdominal pain, nausea, vomiting, diarrhea, or constipation. No bloating, early satiety, indigestion, or increased flatulence. Bladder: No dysuria, gross hematuria, urinary frequency, +urinary urgency, +incontinence. Breast: No breast lumps, nipple d/c, overlying skin changes, redness or skin retraction. Allergies and current medication updated:Yes EXAM: Ht 5' 3 (1.60m) Wt 156 lb 9.6 oz (71.0kg) LMP 01/09/2008 BMI 27.75 kg/(m2). GENERAL: pleasant, female in no apparent distress HEENT: Normocephalic, atraumatic, mucus membranes moist, and no lesions NECK: Supple, full range of motion, no adenopathy, and thyroid normal DERMATOLOGY: Normal, without lesions, non-icteric, and non-hirsute BREAST: soft, non-tender, symmetric, no dominant mass, normal nipple-areolar complex, no lymphadenopathy, and no nipple discharge CHEST: Normal inspiratory effort ABDOMEN: soft, non-tender, and no masses PELVIC: external genitalia normal, normal Bartholin's glands, urethra, Buncombe's glands, no vulvar lesions, good vaginal support, physiologic discharge present, normal appearing perineal body and perianal region, cervix surgically absent BIMANUAL: no adnexal masses, non-tender, and uterus surgically absent RECTOVAGINAL: deferred. NEURO: alert and oriented x3,exam grossly non-focal EXTREMITIES: normal ASSESSMENT/PLAN: 1. Encounter for gynecological examination (general) (routine) without abnormal findings - ICD9: V72.31, ICD10: Z01.419 (primary diagnosis) - Completed pelvic and breast exam - Encouraged monthly BSE - Follow up for annual exam in one year. 2. Hot flashes - ICD9: 782.62, ICD10: R23.2 Follow up in 5-6 weeks - ESTRADIOL 1 MG TABLET Currently not smoking 3. Encounter for screening mammogram for malignant neoplasm of breast - ICD9: V76.12, ICD10: Z12.31 - order give for DEANDRE Laurita Jamison APRN.[facility]05-20-2024 History of Present illness Narrative* Laurita Jamison APRN.CNP - 03/27/2024 10:27 AM EDT [address] Production offered: Patient declinesDmitriy Moreira is a 48 year old who presents for an annual gynecologic exam with complaints, menopausal symptoms and bladder issues . 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: Sexual Activity: Yes; Male Contraception: Tubal Ligation PAST MEDICAL HISTORY Diagnosis Date Abnormal uterine bleeding (AUB) 01/12/2017 COPD (chronic obstructive pulmonary disease) (HCC) Dysthymic disorder Depression (non-psychotic), Endometriosis Fibromyalgia Menorrhagia Obstructive chronic bronchitis with exacerbation (HCC) COPD PAST SURGICAL HISTORY Procedure Laterality Date DELIVERY ONLY , low cervical 03/13/00, 07/28/07 LIGATE FALLOPIAN TUBE Bilateral PAST SURGICAL HISTORY OF 01/12/2017 Endometrial biopsy PAST SURGICAL HISTORY OF 2014 extraction of wisdom teeth PAST SURGICAL HISTORY OF 06/07/2017 RAVH/BSO per Dr Blair FAMILY HISTORY Problem Relation Age of Onset Osteoporosis Mother Alcohol/Drug Father RECOVERING ALCOHOLIC Asthma Father Diabetes Paternal Grandmother Hypertension Paternal Grandmother Breast Cancer Maternal Aunt Psychiatry Paternal Aunt COMMITTED SUICIDE SOCIAL HISTORY Social History Tobacco Use Smoking status: Former Packs/day: 0.50 Years: 17.00 Additional pack years: 0.00 Total pack years: 8.50 Types: Cigarettes Passive exposure: Current Smokeless tobacco: Never Vaping Use Vaping Use: Never used Substance Use Topics Alcohol use: No Drug use: No REVIEW OF SYSTEMS Abdomen: No abdominal pain, nausea, vomiting, diarrhea, or constipation. No bloating, early satiety, indigestion, or increased flatulence. Bladder: No dysuria, gross hematuria, urinary frequency, +urinary urgency, +incontinence. Breast: No breast lumps, nipple d/c, overlying skin changes, redness or skin retraction. Allergies and current medication updated:Yes EXAM: Ht 5' 3 (1.60m) Wt 156 lb 9.6 oz (71.0kg) LMP 01/09/2008 BMI 27.75 kg/(m^2). GENERAL: pleasant, female in no apparent distress HEENT: Normocephalic, atraumatic, mucus membranes moist, and no lesions NECK: Supple, full range of motion, no adenopathy, and thyroid normal DERMATOLOGY: Normal, without lesions, non-icteric, and non-hirsute BREAST: soft, non-tender, symmetric, no dominant mass, normal nipple-areolar complex, no lymphadenopathy, and no nipple discharge CHEST: Normal inspiratory effort ABDOMEN: soft, non-tender, and no masses PELVIC: external genitalia normal, normal Bartholin's glands, urethra, Buncombe's glands, no vulvar lesions, good vaginal support, physiologic discharge present, normal appearing perineal body and perianal region, cervix surgically absent BIMANUAL: no adnexal masses, non-tender, and uterus surgically absent RECTOVAGINAL: deferred. NEURO: alert and oriented x3,exam grossly non-focal EXTREMITIES: normal ASSESSMENT/PLAN: 1. Encounter for gynecological examination (general) (routine) without abnormal findings - ICD9: V72.31, ICD10: Z01.419 (primary diagnosis) - Completed pelvic and breast exam - Encouraged monthly BSE - Follow up for annual exam in one year. 2. Hot flashes - ICD9: 782.62, ICD10: R23.2 Follow up in 5-6 weeks - ESTRADIOL 1 MG TABLET Currently not smoking 3. Encounter for screening mammogram for malignant neoplasm of breast - ICD9: V76.12, ICD10: Z12.31 - order give for DEANDRE Jamison APRN.[place] [facility] noteWooNationwide [facility] HospitalEvaluation note* Diagnosis Onset Date Resolution Status COPD (chronic obstructive pulmonary disease) chronic Nicotine dependence, cigarettes, uncomplicated chronic [facility] Work Phone: Evaluation note* Diagnosis Onset Date Resolution Status COPD (chronic obstructive pulmonary disease) chronic Nicotine dependence, cigarettes, uncomplicated chronic Fibromyalgia acute Dyspnea [facility] Work Phone: Evaluation note* Diagnosis Onset Date Resolution Status Dyspnea chronic Fibromyalgia chronic COPD (chronic obstructive pulmonary disease) chronic Dyspnea chronic Fibromyalgia chronic Nicotine dependence, cigarettes, uncomplicated chronic [facility] Work Phone: Evaluation note* Diagnosis Encounter for gynecological examination (general) (routine) without abnormal findings- Primary Hot flashes Symptomatic menopausal or female climacteric states Encounter for screening mammogram for malignant neoplasm of breast Other screening mammogram [facility]* Diagnosis Unintended weight gain- Primary Abnormal weight gain OAB (overactive bladder) Hypertonicity of bladder Forgetfulness Other general symptoms Hot flashes Symptomatic menopausal or female climacteric states Screening cholesterol level Screening for lipoid disorders Screening for diabetes mellitus Screening for metabolic disorder Encounter for vitamin deficiency screening Screening for other and unspecified endocrine, nutritional, metabolic, and immunity disorders documented in this encounter [facility] note* Diagnosis Menopausal symptoms- Primary Symptomatic menopausal or female climacteric states OAB (overactive bladder) Hypertonicity of bladder documented in this encounter [facility] Discharge instructionsAmbulatory Orders* Cardiology Location: None [facility] Work Phone: Reason for referral (narrative)No reason for referral information availableWThe [facility] Hospital Work Phone: Chief Complaint and Reason for Visit Chief Complaint COPD CHRONIC OBSTRUCTIVE PULMONARY DISEASE CHRONIC OBSTRUCTIVE PULMONARY DISEASE Reason for Visit COPD (chronic obstru ctive pulmonary disease) Nicotine dependence, cigarettes, uncomplicated Chief Complaint COPD CHRONIC OBSTRUCTIVE PULMONARY DISEASE CHRONIC OBSTRUCTIVE PULMONARY DISEASE 1 M FU DYSPNEA Reason for Visit COPD (chronic obstru ctive pulmonary disease) Nicotine dependence, cigarettes, uncomplicated Fibromyalgia Dyspnea Chief Complaint CHRONIC OBSTRUCTIVE PULMONARY DISEASE CHRONIC OBSTRUCTIVE PULMONARY DISEASE 1 M FU DYSPNEA 2 M FU DYSPNEA Reason for Visit Dyspnea Fibromyalgia COPD (chronic obstructive pulmonary disease) Dyspnea Fibromyalgia Nicotine dependence, cigarettes, uncomplicated Chief Complaint Admit Date NICOTINE DEP December 11, 2024 1 :39pm Other specified chronic obstructive pulm onary dise December 18, 2024 10:41am 4 M FU March 05, 2025 12: 53pm Other forms of dyspnea March 23, 2025 1: 50pm R06.09 - Other forms of dyspnea March 12:17pm Reason for Visit Admit Date Daytime hypersomnia March 05, 2025 12: 53pm Obesity March 05, 2025 12: 53pm Dyspnea March 05, 2025 12: 53pm Fibromyalgia March 05, 2025 12: 53pm Smoking greater than 20 pack years March 05, 2025 12:53pm Chief Complaint Admit Date NICOTINE DEP December 11, 2024 1 :39pm Other specified chronic obstructive pulm onary dise December 18, 2024 10:41am 4 M FU March 05, 2025 12: 53pm Other forms of dyspnea March 23, 2025 1: 50pm R06.09 - Other forms of dyspnea March 12:17pm PENNY, HYPERSOMNIA April 01, 2025 11:00 am R06.09 - Other forms of dyspnea March 12:28pm Chief Complaint Admit Date Other specified chronic obstructive pulm onary dise December 18, 2024 10:41am 4 M FU March 05, 2025 12: 53pm Other forms of dyspnea March 23, 2025 1: 50pm R06.09 - Other forms of dyspnea March 12:17pm PENNY, HYPERSOMNIA April 01, 2025 11:00 am R06.09 - Other forms of dyspnea March 12:28pm 3 M FU April 16, 2025 11:13 am Reason for Visit Admit Date Daytime hypersomnia March 05, 2025 12: 53pm Obesity March 05, 2025 12: 53pm Dyspnea March 05, 2025 12: 53pm Fibromyalgia March 05, 2025 12: 53pm Smoking greater than 20 pack years March 05, 2025 12:53pm Diastolic dysfunction April 16, 2025 11: 13am Obesity April 16, 2025 11:13 am Obstructive sleep apnea April 16, 2025 1 1:13am Fibromyalgia April 16, 2025 11:13 am Smoking greater than 20 pack years April 16, 2025 11:13am Advance Directives No Advanced Directives Records Found Advance Directive Response Recorded Date/ Time Living Will No January 10, 2019 8:12am Power of Welder/Installer No March 5th, 201 9 8:12am Advance Directive Response Recorded Date/ Time Living Will No January 10, 2019 9:12am Power of Welder/Installer No January 10 9 9:12am Advance Directive Response Recorded Date/ Time Living Will No January 10, 2019 9:12am Do you have a Healthcare Power of Welder/Installer? No January 10, 2019 9:12am Family History No Family History Records Found Arthritis Status:Active Comments:Mother. Breast Cancer Status:Active Comments:aunt Cerebrovascular Accident Status:Active Comment s:Mother. Great Grandmother Diabetes Mellitus Type II Status:Active Commen ts:Grandmother Hypertension Status:Active Comments:Grandmo ther Multiple Sclerosis Status:Active Comments:Sist er. Thyroid problems Status:Active Comments:Mother . Summary Purpose Additional Source Comments Care Teams (unrecognized sec tion and content) Team Status: Active Member Role Status Dates Dr. Carlin Adam MD Family Provider Active LINA Mckeon Primary Care Provider Active Team Status: Inactive Member Role Status Dates Dr. Carlin Adam MD Primary Care Provider, Referring Provider Active Dr. Dangelo Muller DO Attending Provider Active Team Status: Active Member Role Status Dates LINA Mckeon Primary Care Provider Active Dr. Dangelo Muller DO Attending Provider, Referring Provider, Other Provider Active Team Status: Inactive Member Role Status Dates LINA Mckeon Primary Care Provider Active Dr. Dangelo Muller DO Attending Provider, Referring Pro vider Active Team Status: Inactive Member Role Status Dates LINA Mckeon Primary Care Provider, Referring Pro vider Active Ashanti Mejía LOG HAUL OPERATOR, LOG HAUL OPERATOR-C Attending Provider Active Team Status: Active Member Role Status Dates LINA Mckeon Primary Care Provider Active Dr. Fahad Beaver MD Attending Provider Active Team Status: Inactive Member Role Status Dates LINA Mckeon Primary Care Provider Active Ashanti Mejía LOG HAUL OPERATOR, LOG HAUL OPERATOR-C Attending Provider, Referrin g Provider Active Wash Helper Relationship Specialty Start Date End Date Carlin Adam [address] [place] [address] Referring Family Medicine 01/31/19 Wash Helper Relationship Specialty Start Date End Date Carlin Adam [address] [place] [address] Referring Family Medicine 01/31/19 Team Status: Active Member Role Status Dates LINA Mckeon Primary Care Provider Active Team Status: Inactive Member Role Status Dates LINA Mckeon Primary Care Provider Active S tart: December 11, 2024 End: December 11, 2024 Ashanti Mejía LOG HAUL OPERATOR, LOG HAUL OPERATOR-C Attending Provider Active Start: December 11, 2024 End: December 11, 2024 Ashanti Mejía LOG HAUL OPERATOR, LOG HAUL OPERATOR-C Referring Provider Active Start: December 11, 2024 End: December 11, 2024 Team Status: Inactive Member Role Status Dates LINA Mckeon Primary Care Provider Active S tart: December 18, 2024 End: December 18, 2024 Ashanti Mejía LOG HAUL OPERATOR, LOG HAUL OPERATOR-C Attending Provider Active Start: December 18, 2024 End: December 18, 2024 Ashanti Mejía LOG HAUL OPERATOR, LOG HAUL OPERATOR-C Referring Provider Active Start: December 18, 2024 End: December 18, 2024 Team Status: Inactive Member Role Status Dates LINA Mckeon Primary Care Provider Active S tart: March 05, 2025 End: March 05, 2025 LINA Mckeon Referring Provider Active Star t: March 05, 2025 End: March 05, 2025 Ashanti Mejía LOG HAUL OPERATOR, LOG HAUL OPERATOR-C Attending Provider Active Start: March 05, 2025 End: March 05, 2025 Team Status: Inactive Member Role Status Dates LINA Mckeon Primary Care Provider Active S tart: March 23, 2025 End: March 23, 2025 Ashanti Mejía LOG HAUL OPERATOR, LOG HAUL OPERATOR-C Attending Provider Active Start: March 23, 2025 End: March 23, 2025 Ashanti Mejía LOG HAUL OPERATOR, LOG HAUL OPERATOR-C Referring Provider Active Start: March 23, 2025 End: March 23, 2025 Team Status: Active Member Role Status Dates LINA Mckeon Primary Care Provider Active S tart: March 23, 2025 Dr. Simon Del Rosario MD Attending Provider Active S tart: March 23, 2025 Team Status: Inactive Member Role Status Dates LINA Mckeon Primary Care Provider Active S tart: March 27, 2025 End: March 27, 2025 Ashanti Mejía LOG HAUL OPERATOR, LOG HAUL OPERATOR-C Attending Provider Active Start: March 27, 2025 End: March 27, 2025 Ashanti Mejía LOG HAUL OPERATOR, LOG HAUL OPERATOR-C Referring Provider Active Start: March 27, 2025 End: March 27, 2025 Team Status: Inactive Member Role Status Dates LINA Mckeon Primary Care Provider Active S tart: April 01, 2025 End: April 01, 2025 Ashanti Mejía NP, LOG HAUL OPERATOR-C Attending Provider Active Start: April 01, 2025 End: April 01, 2025 Ashanti Mejía LOG HAUL OPERATOR, LOG HAUL OPERATOR-C Referring Provider Active Start: April 01, 2025 End: April 01, 2025 Team Status: Active Member Role Status Dates LINA Mckeon Primary Care Provider Active S tart: April 03, 2025 Ashanti Mejía NP, LOG HAUL OPERATOR-C Referring Provider Active Start: April 03, 2025 Ashanti Mejía LOG HAUL OPERATOR, LOG HAUL OPERATOR-C Other Provider Active Start: April 03, 2025 Dr. Dangelo Muller , Attending Provider Active S tart: April 03, 2025 Team Status: Inactive Member Role Status Dates LINA Mckeon Primary Care Provider Active S tart: April 16, 2025 End: April 16, 2025 LINA Mckeon Referring Provider Active Star t: April 16, 2025 End: April 16, 2025 Ashanti Mejía NP, LOG HAUL OPERATOR-C Attending Provider Active Start: April 16, 2025 End: April 16, 2025 Goals (unrecognized section and content) Goals may be documented in a n alternate sectionGoals may be documented in an alternate sectionGoals may be documented in an alternate sectionGoals may be documented in an alternate sectionGoals may be documented in an alternate sectionGoals may be documented in an alternate section Source Comments (unrecognize d section and content) In the event this informatio n is protected by the Federal Confidentiality of Alcohol and Drug Abuse Patient Records regulations: The Federal rules restrict any use of the information to criminally investigate or prosecute any alcohol or drug abuse patient.[facility] the event this information is protected by the Federal Confidentiality of Alcohol and Drug Abuse Patient Records regulations: The Federal rules restrict any use of the information to criminally investigate or prosecute any alcohol or drug abuse patient.[facility] the event this information is protected by the Federal Confidentiality of Alcohol and Drug Abuse Patient Records regulations: The Federal rules restrict any use of the information to criminally investigate or prosecute any alcohol or drug abuse patient.[facility] the event this information is protected by the Federal Confidentiality of Alcohol and Drug Abuse Patient Records regulations: The Federal rules restrict any use of the information to criminally investigate or prosecute any alcohol or drug abuse patient.[facility] Reason for Visit (unrecogniz ed section and content) Reason Comments Yearly Exam Reason Onset Date Comments Follow Up Weight Management 05/29/2024 Reason Comments Results Reason Comments Follow Up INFORMATION SOURCE (unrecogn ized section and content) DATE CREATED AUTHOR 04/29/2024 [email or web address] DATE CREATED AUTHOR AUTHOR'S ORGANIZ ATION 06/25/2024 [facility] DATE CREATED AUTHOR AUTHOR'S ORGANIZ ATION 07/25/2024 [facility] DATE CREATED AUTHOR AUTHOR'S ORGANIZ ATION 01/09/2025 [facility] DATE CREATED AUTHOR AUTHOR'S ORGANIZ ATION 04/22/2025 [facility] FOR RECORDS PERTAINING TO PATIENTS WHO ARE [...] BE BASED ON THE PRIMARY CLINICAL RECORDS. [facility]. provides no warranty or guarantee of the accuracy or completeness of information in this document.
[2025-04-23] MEDS: Lactated Ringers 1,000 ML 15 ML IV (07:14)
--- NOTE | 2025-04-23 07:26 | H&P.OPEN ---
[facility] - General General Date of Service: 04/23/25 HPI Narrative LILLIE ROMERO, is a 49 F who presents for screening colonoscopy. Does not remember having a colonoscopy however records states she had one in January 2019 had a rectal polyp at that time with Dr. Stevens. Also had an EGD at that time. Patient denies any family history of colon cancer. Patient has bowel movements daily denies any blood. Patient denies any chronic abdominal pain/nausea/vomiting. Patient's reflux is controlled with omeprazole. [facility] Medical History (Updated 04/23/25 @ 07:[address] Maddy Amador MD) Wears glasses Post-menopausal Marijuana use Alcohol use Gastric reflux Sleep apnea Former smoker Smoker Shortness of breath on exertion Hoarseness Chronic cough History of pain when walking History of echocardiogram Cardiology follow-up encounter Chest pain Acid reflux Abdominal pain Fatigue Anxiety Depression Heart murmur Abnormal ultrasound of breast Abnormal mammogram of left breast Sweets syndrome Tobacco dependence Moderate persistent asthma Bronchitis COPD (chronic obstructive pulmonary disease) Vasculitis Cough Home Medications ?Medication ?Instructions ?Recorded ?Last Taken ?Type omeprazole 20 mg capsule,delayed 20 mg PO DAILY 09/15/23 Unknown History release inhalational spacing device (Space #1 ea 11/03/23 Unknown History Chamber) multivitamin with minerals-folic 1 tab PO DAILY 01/03/24 Unknown History acid 0.4 mg tablet zolpidem 5 mg tablet 5 mg PO QHS PRN sleep 08/28/24 Unknown History albuterol sulfate 90 mcg/actuation 2 puff inhalation Q4H PRN 03/05/25 Unknown Rx aerosol inhaler shortness of breath or wheezing #8.5 grams fluticasone fur. 100 mcg-umeclid 1 inh inhalation QDAY #60 ea 04/10/25 04/23/25 05:00 Rx 62.5 mcg-vilant 25 mcg inhalat.powder (Trelegy Ellipta) Marijuana Medical Card .Route 04/16/25 Unknown History calcium 600 mg (as 1 tab PO DAILY 04/19/25 Unknown History carbonate)-vitamin D3 5 mcg (200 unit) tablet (Calcium 600 + D(3)) cetirizine 10 mg tablet (24Hour 10 mg PO DAILY PRN allergy symptoms 04/19/25 Unknown History Allergy) docusate sodium 100 mg capsule 100 mg PO DAILY 04/19/25 Unknown History (Col-Rite) oxybutynin chloride 10 mg 10 mg PO BID 04/19/25 Unknown History tablet,extended release 24 hr vitamin B complex (Complex B-100 1 tab PO DAILY 04/19/25 Unknown History tablet,extended release) Allergy/AdvReac Type Severity Reaction Status Date / Time No Known Allergies Allergy Verified 04/23/25 06:58 Family History Mother Arthritis Diabetes Surgical History (Updated 04/19/25 @ 12:08 by Rosalina Sauer) Hx of wisdom tooth extraction History of esophagogastroduodenoscopy (EGD) Hx of colonoscopy delivery delivered H/O: hysterectomy Social History Smoking Status: Former smoker quit date: 11/30/23 Tobacco: How many years used: 31 Electronic Cigarette Use: not used second hand exposure: Yes alcohol intake: current alcohol intake frequency: a few times a month substance use type: does not use caffeine: Yes frequency: does not exercise Past Medical/Surgical History Planned Operation Planned Operative Procedure(s): COLONOSCOPY-OA S.O.S: No Previous Hospitalizations/Surgeries HX Hospitalizations: Yes (NAUSEA WITH CSECTION) HX of Surgeries: X2, TUBAL LIGATION WISDOM TEETH VAGINAL HYSTERECTOMY BSO 2017 Any Problems With Anesthesia: No You/Your Family Experience Fever (Hyperthermia) With Anes: No Cholinesterase deficiency: No Cardiovascular Hx Chest Pain within Last 2 months: No (.) Hx of Irregular Heartbeat and/or Afib: Yes ( CHILD, RESOLVED) Hx Heart Attack: No Hx Congestive Heart Failure: No Hx Rheumatic Fever: No Hx Hypertension: No Hx Internal Defibrillator: No Hx Pacemaker: No Hx Cardiac Catheterization: No Hx Cardiac Surgery/Stents/Etc.: No Hx Stress Test: No (.) Hx Pain in Legs when Walking/Leg Cramps: No Respiratory Chronic Cough: No HX of Shortness of Breath: Yes (SOB WITH 2 FLIGHTS OF STAIRS) Hoarseness: No Hx Chronic Obstructive Pulmonary Disease (COPD): Yes (CHRONIC BRONCHITIS/NO INHALERS USED) Hx Asthma: No Hx Emphysema: No Hx Sleep Apnea: No Hx Respiratory Tract Infection/Cold (presently): No Do You Snore Loudly (louder than talking or can be heard): No Do You Often Feel Tired/ Fatigued/ Sleepy Dring Daytime?: No Has Anyone Observed You Stop Breathing During Sleep?: No Result (for STOP score): Negative Hx Smoking: Yes (1 PPD X 20+ YRS/QUIT 6 MONTHS AGO) Smoking Status: Former smoker Gastrointestinal Controlled With Meds: No (NO MEDS) Hx Gastrointestinal Disorders: No Hx Gastrointestinal Bleed: No Hx Ulcer: No Hx Hiatal Hernia: No Difficulty Chewing/Swallowing: No Special diet followed at home: No Hx Unplanned Weight Loss of 20#: No HX Unplanned Weight Gain of 20#: No Neurological Hx Seizures: No HX Syncope/Blackout Spells/Unconsciousness: Yes (SYNCOPE OCC.) Hx Transient Ischemic Attacks (TIA): No Hx Multiple Sclerosis: No Hx Parkinson's Disease: No Hx Head/Neck Injury: No Hx Headaches: Yes (OCC) Hx Back Injury/Pain: No Recent Onset of Speech Difficulty: No Restless Legs: Yes (.) Does patient have nerve stimulator: No Blood Disorder Hx Leukemia: No Bleeding Tendencies: Yes (BRUISE EASILY) Hx Deep Vein Thrombosis: No Hx High Cholesterol: No Blood Transmitted Disease: No Hx Hepatitis: No Hx Cirrhosis: No Hx Anemia: No Hx Blood Disorders: No Reproduction : No Is Patient Lactating: No Hx Hysterectomy: Yes Hx Tubal Ligation: Yes Are You Post Menopause: No Genitourinary Hx Renal Disease: No Musculoskeletal Hx Arthritis: No Hx Rheumatoid Arthritis: No Hx Gout: No Recent Onset of an Orthopedic Problem: No Endocrine Hx Diabetes: No Thyroid Disease: No Hx Steroid Therapy: Yes (CURRENTLY ON PREDNISONE FOR PAIN TO RIGHT SHOULDER/ELBOW) Psycho/Social Hx Substance Use: No Hx Alcohol Use: Yes (OCC) Hx Anxiety: No Hx Depression: No Mental Illness: No Hx Dementia: No Miscellaneous Hx Cancer: No Recent Exposure to Contagious Disease: No Hx of C-Diff: No Any Loose Teeth: No Allergies No Known Allergies Allergy (Verified 04/23/25 06:58) Discharge Is Pt Admitted From a Usp, or a Nursing Home: No After D/C, Where Do you Plan to Go: Return Home Vital Signs Vital Signs Vital Signs: 04/23/25 06:59 04/23/25 06:59 Temperature 97 F L Temperature Source Temporal Pulse Rate 72 Respiratory Rate 16 Respiratory Pattern Normal Blood Pressure 149/84 H Blood Pressure Mean 105 Blood Pressure Source Monitor Blood Pressure Position Sitting Blood Pressure Location Left Arm Pulse Ox 100 Oxygen Delivery Method Room Air Weight Weight: 180 lb 12.465 oz Body Mass Index (BMI) 32.0 Physical Exam Const alert, oriented x3 and no apparent distress HEENT normocephalic and head/scalp atraumatic Resp normal respiratory effort Cardio regular rate GI soft to palpation and non-tender; Negative for non-distended Palpation: Negative for guarding Extremity no clubbing, cyanosis or edema Skin no rashes or lesions noted Neuro CN's II-XII intact bilaterally Psych mental status grossly normal Assessment & Plan Assessment/Plan (1) Hx of colonic polyp: Surgery Risks - Colonoscopy I discussed with the patient the risks of the procedure: Yes Risks Include but are not Limited To: Risks include but are not limited to: Bleeding, perforation requiring further surgery, inability to complete colonoscopy requiring barium enema.
--- NOTE | 2025-04-23 07:47 | PCM.PRE.AN2 ---
ASA Classification* ASA Classification ASA Classification: 3 Assessment & Plan Anesthesia* Anesthesia Assessment Anesthesia Assessment: Discussed sedation and/or anesthesia options, risks, benefits, and alternatives with patient/parents/legal guardian/POA. Questions invited. The patient/parents/legal guardian/POA seems to understand and agrees to proceed with anesthesia plan. Reviewed the physical assessment, medical history, allergy history and patient home medications list prior to surgery/procedure/anesthetic and documented any changes. Performed airway and anesthesia risk assessments. Anesthesia Type Anesthesia Type: MAC History Source History Obtained from:: Patient and Chart Anesthesia Focused Assessment* Temperature: 97 F Pulse Rate: 72 Blood Pressure: 149/84 Respiratory Rate: 16 Pulse Ox: 100 Oxygen Delivery Method: Room Air Airway Assessment Mouth opens: >3 cm Mallampati Score: III Teeth Condition: Missing (Patient has couple missing teeth.) Neck Range of motion (ROM): Full ROM Labs Anesthesia Preop lab: CBC WBC 9.6 K/mm3 (4.4-11.0) 06/08/17 06:00 06/08/17 RBC 4.04 M/mm3 (4.2-5.4) L 06/08/17 06:00 06/08/17 Hgb 12.2 g/dl (12.0-15.0) 06/08/17 06:00 06/08/17 Hct 38.1 % (37-47) 06/08/17 06:00 06/08/17 Plt Count 179 K/mm3 (150-450) 06/08/17 06:00 06/08/17 CHEMISTRY Creatinine 0.71 mg/dL (0.55-1.02) 06/08/17 06:00 06/08/17 COAG PT 12.7 SECONDS (11.7-14.9) 04/21/17 11:48 04/21/17 Pre-Assessment Diagnosis/Proposed Procedure Planned Operative Procedure(s): COLONOSCOPY-OA Anesthesia History 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 When Was Last Pacemaker Check QUESTION #4 FULL TEXT: You/Your Family Experience fever (hyperthermia) with Anesthesia Last Oral Intake Last Oral intake: Last Oral Intake NPO since 05:30 04/23/25 06:59 Meds taken in AM with sips of No 04/23/25 06:59 water? 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 technician Female Yes 04/19/25 12:09 HX of Motion Sickness No 04/19/25 12:09 HX of N/V After Surgery No 04/19/25 12:09 Non-Smoker Yes 04/19/25 12:09 Duration of Surgery greater No 04/19/25 12:09 than 60 minutes Number of Risk Factors 2 04/19/25 12:09 PONV Score Moderate Risk 04/19/25 12:09 Height & Weight Height & Weight: Anesthesia: Height & Weight Height 5 ft 3 in 04/23/25 06:59 Weight: 82 kg 04/23/25 06:59 Body Mass Index (BMI) 32.0 04/23/25 06:59 Respiratory Assessment Respiratory Assessment - oil and gas exploration technician: Respiratory Tract Infection Hx - oil and gas exploration technician Hx Respiratory Tract Infection No 04/23/25 07:30 STOP Sleep Apnea STOP Sleep Apnea - oil and gas exploration technician: STOP Sleep Apnea - oil and gas exploration technician Hx Hypertension No 04/23/25 07:30 Hx Sleep Apnea No 04/23/25 07:30 CPAP BIPAP Do you snore loudly (louder No 04/23/25 07:30 than talking or can be heard Do you often feel tired/ No 04/23/25 07:30 fatigued/ sleepy during daytime? Has anyone observed you stop No 04/23/25 07:30 breathing during sleep? STOP Results Negative 04/23/25 07:30 QUESTION #5 FULL TEXT : Do you snore loudly (louder than talking or can be heard through closed doors)? 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 Specify any problems Hx of Preganancy in last 3 No 04/19/25 12:09 Months Nurse Filling Out Transfusion VCHRISTIN 04/19/25 12:09 & Questions: Date: 04/19/25 04/19/25 12:09 Time: 12:10 04/19/25 12:09 Patient unable to answer at this time (ie. confused, unrespo /Reproduction History /Reproductive History - oil and gas exploration technician: /Reproductive Hx- oil and gas exploration technician Hx Now No 04/23/25 07:30 Gestational Age (in weeks): EDC: Hx Hx Para Hx Section SAB No 04/19/25 12:09 Active Medications Active Medications: Current Medications Generic Name Dose Route Start Last Admin Trade Name Freq PRN Reason Stop Dose Admin Lactated Ringer's 1,000 mls @ 15 mls/hr 04/23/25 07:00 04/23/25 07:14 IV 15 mls/hr .Q48H RANJANA Administration PFSH Medical History Wears glasses Post-menopausal Marijuana use Alcohol use Gastric reflux Sleep apnea Former smoker Smoker Shortness of breath on exertion Hoarseness Chronic cough History of pain when walking History of echocardiogram Cardiology follow-up encounter Chest pain Acid reflux Abdominal pain Fatigue Anxiety Depression Heart murmur Abnormal ultrasound of breast Abnormal mammogram of left breast Sweets syndrome Tobacco dependence Moderate persistent asthma Bronchitis COPD (chronic obstructive pulmonary disease) Vasculitis Cough Home Medications ?Medication ?Instructions ?Recorded ?Last Taken ?Type omeprazole 20 mg capsule,delayed 20 mg PO DAILY 09/15/23 Unknown History release inhalational spacing device (Space #1 ea 11/03/23 Unknown History Chamber) multivitamin with minerals-folic 1 tab PO DAILY 01/03/24 Unknown History acid 0.4 mg tablet zolpidem 5 mg tablet 5 mg PO QHS PRN sleep 08/28/24 Unknown History albuterol sulfate 90 mcg/actuation 2 puff inhalation Q4H PRN 03/05/25 Unknown Rx aerosol inhaler shortness of breath or wheezing #8.5 grams fluticasone fur. 100 mcg-umeclid 1 inh inhalation QDAY #60 ea 04/10/25 04/23/25 05:00 Rx 62.5 mcg-vilant 25 mcg inhalat.powder (Trelegy Ellipta) Marijuana Medical Card .Route 04/16/25 Unknown History calcium 600 mg (as 1 tab PO DAILY 04/19/25 Unknown History carbonate)-vitamin D3 5 mcg (200 unit) tablet (Calcium 600 + D(3)) cetirizine 10 mg tablet (24Hour 10 mg PO DAILY PRN allergy symptoms 04/19/25 Unknown History Allergy) docusate sodium 100 mg capsule 100 mg PO DAILY 04/19/25 Unknown History (Col-Rite) oxybutynin chloride 10 mg 10 mg PO BID 04/19/25 Unknown History tablet,extended release 24 hr vitamin B complex (Complex B-100 1 tab PO DAILY 04/19/25 Unknown History tablet,extended release) Allergy/AdvReac Type Severity Reaction Status Date / Time No Known Allergies Allergy Verified 04/23/25 06:58 Family History Mother Arthritis Diabetes Surgical History Hx of wisdom tooth extraction History of esophagogastroduodenoscopy (EGD) Hx of colonoscopy delivery delivered H/O: hysterectomy Social History Smoking Status: Former smoker quit date: 11/30/23 Tobacco: How many years used: 31 Electronic Cigarette Use: not used second hand exposure: Yes alcohol intake: current alcohol intake frequency: a few times a month substance use type: does not use caffeine: Yes frequency: does not exercise Review of Systems (Anesthesia) ROS Narrative System reviewed and no additional complaints, except as documented.
--- NOTE | 2025-04-23 08:00 | COLBX_PTH ---
PATIENT: AYLEEN ROMERO LOC: EN U#:[id number] AGE/SX: 49/F ROOM: RE04/23/[address]: Dr. Maddy Amador MD : 1975 BED: DIS: 04/23/2025 SPEC #: [id number] RECD: 04/23/25 10:41 STATUS: AMRIT RELeonard #: [id number] DANNA: 04/23/25 08:[address]: Maddy Amador DEPT: SURGICAL PATHOLOGY RECD BY: Andres Miller ENTERED: 04/23/25 11:32 SP TYPE: COLON BX OTHR DR: LINA Mckeon Tissues: A - Sigmoid colon biopsy Procedures: Surgery Specimen Level IV HEADER OPERATION: Colonoscopy with biopsy PRE-OP DIAGNOSIS: History of colonic polyps TISSUE SUBMITTED: A- Sigmoid colon polyp MICROSCOPIC DIAGNOSIS A. Sigmoid polyp, colon, biopsy: Hyperplastic polyp. MICROSCOPIC DESCRIPTION Slides are reviewed. GROSS DESCRIPTION A. Received in fixative is one container labeled with the patient's name and designated Sigmoid colon polyp. The specimen consists of three irregular fragments of light evans soft tissue that in aggregate measure 0.1 to 0.5 cm. The specimen is totally submitted in one cassette. CPT:02443 SC/mr 04/23/2025
[2025-04-23] MEDS: Ipratropium/Albuterol Sulfate 3 ML AMPUL.NEB INHALATION (08:03)
--- NOTE | 2025-04-23 08:41 | OP.CCLET_ITS ---
04/23/2025 Ky Mckeon Re : Colonoscopy procedure for Lillie Holland Dear Bill This procedure was performed on Wednesday, April 23, 2025. My impressions and recommendations are as follows: Impressions : - One less than 5 mm polyp in the sigmoid colon, removed with a hot snare. Resected and retrieved. - The examination was otherwise normal on direct and retroflexion views. Recommendations : - Discharge patient to home. - Resume previous diet. - Continue present medications. - Await pathology results. - Repeat colonoscopy in 5-10 years for surveillance based on pathology results. My findings are described in the full procedure note, which is enclosed. If I can be of further assistance, please feel free to contact me at Doctor phone number(s): , Work: . Sincerely, MD Maddy Jc MD 04/23/2025 8:41:10 AM This report has been signed electronically.
--- NOTE | 2025-04-23 08:41 | OP.COLON_ITS ---
Patient Name: Lillie Holland Procedure Date: 04/23/2025 8:05 AM Date of : 1975 Age: 49 Procedure: Colonoscopy Indications: High risk colon cancer surveillance: Personal history of colonic polyps Providers: Maddy Amador MD Referring MD: Ky Mckeon Medicines: Monitored Anesthesia Care Patient Profile: This is a 49 year old female. Last Colonoscopy: January 2019. Complications: No immediate complications. Procedure: Pre-Anesthesia Assessment: - Prior to the procedure, a History and Physical was performed, and patient medications and allergies were reviewed. The patient's tolerance of previous anesthesia was also reviewed. The risks and benefits of the procedure and the sedation options and risks were discussed with the patient. All questions were answered, and informed consent was obtained. Prior Anticoagulants: The patient has taken no anticoagulant or antiplatelet agents. ASA Grade Assessment: Per anesthesia. After reviewing the risks and benefits, the patient was deemed in satisfactory condition to undergo the procedure. After I obtained informed consent, the scope was passed under direct vision. Throughout the procedure, the patient's blood pressure, pulse, and oxygen saturations were monitored continuously. The Colonoscope was introduced through the anus and advanced to the cecum, identified by the appendiceal orifice, ileocecal valve and palpation. The colonoscopy was performed without difficulty. The patient tolerated the procedure well. The quality of the bowel preparation was good. Scope In: 8:22:59 AM Scope Withdrawal Time 0 hours 9 minutes 19 seconds Scope Out: 8:36:59 AM Total Procedure Duration Time 0 hours 14 minutes 0 seconds Findings: The perianal and digital rectal examinations were normal. A less than 5 mm polyp was found in the sigmoid colon. The polyp was semi-sessile. The polyp was removed with a hot snare. Resection and retrieval were complete. The exam was otherwise without abnormality on direct and retroflexion views. Impression: - One less than 5 mm polyp in the sigmoid colon, removed with a hot snare. Resected and retrieved. - The examination was otherwise normal on direct and retroflexion views. Recommendation: - Discharge patient to home. - Resume previous diet. - Continue present medications. - Await pathology results. - Repeat colonoscopy in 5-10 years for surveillance based on pathology results. Procedure Code(s): --- Professional --- 18020, PT, Colonoscopy, flexible; with removal of tumor(s), polyp(s), or other lesion(s) by snare technique Diagnosis Code(s): --- Professional --- Z86.010, Personal history of colonic polyps D12.5, Benign neoplasm of sigmoid colon CPT copyright 2021 [employer]. All rights reserved. The codes documented in this report are preliminary and upon [employer] review may be revised to meet current compliance requirements. MD Maddy Jc MD 04/23/2025 8:41:10 AM This report has been signed electronically. Number of Addenda: 0 Note Initiated On: 04/23/2025 8:05 AM
--- NOTE | 2025-04-23 08:46 | PCM.POST.ANE ---
Anesthesia: Postop Eval I Current Vital Signs Temperature: 97 F Pulse Rate: 87 Blood Pressure: 83/41 Respiratory Rate: 16 Pulse Ox: 96 Oxygen Delivery Method: Room Air Assessment Airway patent: Yes Spontaneous unlabored respirations: Yes Mental status: Awake and Calm nausea: No Vomiting: No Anesthesia Complication: No Fluid Hydration Crystalloid volume administer (ml): 800 Total IV fluid infused: 800 Progress Note Anesthesia document: Postop Eval 1 completed: Yes
--- NOTE | 2025-04-23 12:29 | PCM.POSTANE2 ---
Anesthesia Postop Eval I Sum Postop Eval Completion status Anesthesia document: Postop Eval 1 completed: Yes Anesthesia Postop Eval I Summary Anesthesia Postop Eval I Summary: Anesthesia Postop Eval I: Assessment Summary Airway patent Yes 04/23/25 08:46 [email or web address] Spontaneous unlabored Yes 04/23/25 08:46 [email or web address] respirations Mental status Awake,Calm 04/23/25 08:46 [email or web address] nausea No 04/23/25 08:46 [email or web address] Vomiting No 04/23/25 08:46 [email or web address] Anesthesia Postop Eval I: Fluid Summary Crystalloid volume administer 800 04/23/25 08:46 [email or web address] (ml) Colloids volume administered ( ml) Blood Product volume administered (ml) Total IV fluid infused 800 04/23/25 08:46 [email or web address] Anesthesia Postop Eval I: Summary Notes Anesthesia Complication No 04/23/25 08:46 [email or web address] Anesthesia Complication Comment: Post-operative progress note Anesthesia: Postop Eval II Evaluation Mental status: Awake and Calm Pain Level: 0 nausea: No Vomiting: No Complications Anesthesia Complication: No
== END 2025-04-23 09:35 | disposition home or self-care (01) ==
LOC: EN 06:37 → AC 06:38
PROVIDERS: Visit Provider Surgery
PROC: 0DJD8ZZ Inspection of Lower Intestinal Tract, Via Natural or Artificial Opening Endoscopic (ICD-10-PCS; CPT 45378; principal; 2025-04-23 07:55)
DX: Z12.11 Encounter for screening for malignant neoplasm of colon (principal); J44.9 Chronic obstructive pulmonary disease, unspecified; K63.5 Polyp of colon; G47.30 Sleep apnea, unspecified; K21.9 Gastro-esophageal reflux disease without esophagitis; F41.9 Anxiety disorder, unspecified; F32.A Depression, unspecified; Z79.899 Other long term (current) drug therapy; Z86.0100 Personal history of colon polyps, unspecified; Z79.51 Long term (current) use of inhaled steroids; Z87.891 Personal history of nicotine dependence
CPT/HCPCS: 45385; 88305; 94640; J2405

== ENCOUNTER → 2025-05-30 | Outpatient (CLI) | payer MEDICAID, SELFPAY ==
[2025-05-30 12:21] LABS: Hematocrit 38.5 % (37-47); Hemoglobin 12.4 g/dL (12.0-15.0); Immature Granulocytes Count 0.030 X10^3/uL (0.0-0.0); Mean Corp Hgb Conc 32.2 g/dL (32-36); Mean Corpuscular Volume 89.3 fL (81-99); Mean Platelet Vol. 10.7 fl (6.2-12.0); NRBC Flagged by Analyzer 0 % (0-5); Platelet Count 262 K/mm3 (150-450); RBC Distribution Width CV 13.4 % (11.6-14.6); RBC Distribution Width SD 43.8 fl (35.1-43.9); Red Blood Count 4.31 M/mm3 (4.2-5.4); White Blood Count 6.8 K/mm3 (4.4-11.0)
[2025-05-30 12:47] LABS: Anion Gap 11 (5-15); BUN 11 mg/dL (4-19); BUN/Creat Ratio 18.4 RATIO (10-20); Calcium,Total 9.5 mg/dL (7.6-11.0); Carbon Dioxide 25.0 mmol/L (21.0-32.0); Chloride 105 mmol/L (98-108); Glucose 89 mg/dL (70-99); Potassium 3.7 mmol/L (3.3-5.1); Pro- Brain NATRIURETIC PEPTIDE 164 pg/mL (<=900)
== END | disposition home or self-care (01) ==
LOC: LAB 11:48
PROVIDERS: Referring Provider Internal Medicine Cardiovascular Disease; Visit Provider Internal Medicine Cardiovascular Disease
DX: R07.9 Chest pain, unspecified (principal)
CPT/HCPCS: 36415; 80048; 83880; 85025

== ENCOUNTER → 2025-06-18 | Outpatient (CLI) | payer MEDICAID, SELFPAY ==
--- OUTSIDE RECORDS SUMMARY | 2025-06-18 07:15 | XMS RPT_ITS | CCD ---
Author Organization [facility] Care Team Providers Care Outpatient Coding Specialist Name Role Phone Dr. Carlin Adam Primary Care Provider [phone] Dr. Carlin Adam Referring Provider Dr. Dangelo Muller Attending Provider LINA Saldivar Primary Care Provider Dr. Dangelo Muller Referring Provider Dr. Dangelo Muller Other Provider Leonora Saldivar PA-C Unavailable Yuri (Dr. Zina Morejon MD Unavailable [phone] Medicine [facility], Pulmonary Unavailable Jensen SEQUEIRA, Dr. Felder Unavailable Counseling Provider Unavailable Unavailable Rheumatolgy Provider Unavailable Unavailable Seferino SEQUEIRA, Dr. Hood Goodman Unavailable Margaret SEQUEIRA, Dr. Carlin Cho Unavailable Structures Assembler/Gynecology Prov. Unavailable Un available Cardiology Provider Unavailable Unavailable Sangita SEQUEIRA, Dr. oRwe Unavailable [phone] [place], Occupational Therapy Unavailable Physical Therapy Provider Unavailable Juan Miguel Blanchard MD, Barbra Guerrero Unavailable Himanshu POE, Frida Unavailable Juan Muller MD Unavailable Bridget Smith MA Unavailable Unavailable Gogoi (scribe), Hemanta Unavailable Unavaila eveline Garcias LPN, Nava Unavailable Unavailable Carlin Adam MD Unavailable Tenisha LABOY, Luke E Unavailable Tenisha, Shiloh C Unavailable Unavailable Tenisha RN, Agustina L Unavailable Unavail able Chirag ROSAS, Elizabeth Unavailable Unavailable Param BERGERONN, Daniella Unavailable Unavailable King RUBINA-C, Rubio Segovia Unavailable Eloy HICKMAN, Radha Gerardo Unavailable Unavailraul Rossi RN, Shyla Unavailable Seven PA-C, Virgen Melton Unavailable Austyn SAMPLE GRADER, Leonor Unavailable Unavailabl e Sannarosey SAMPLE GRADER, Lady Unavailable Unavailable Unavailable Unavailable LINA Saldivar Leonora Referring Provider Kym CESPEDES, ASSOCIATE PROGRAM MANAGER-C Ashanti Attending Provider Dr. Fahad Beaver Attending Provider Miranda SEQUEIRA, Dr. Morin Unavailable LINA Saldivar Leonora Primary Care Provider Dr. Dangelo Muller Attending Provider Dr. Dangelo Muller Referring Provider Dr. Dangelo Muller Other Provider LINA Saldivar Leonora Referring Provider [phone] Kym CESPEDES, ASSOCIATE PROGRAM MANAGER-C Ashanti Attending Provider Dr. Fahad Beaver Attending [...] LAURITA Attending Unavailable SHAHEEN, LAURITA Attending Unavailable [facility] Unavailable SALDIVAR, LEONORA PAC Attending Unavailable SALDIVAR, LEONORA PAC Admitting Unavailable SALDIVAR, LEONORA PAC Primary Care Unavailable SALDIVAR, LEONORA PAC Consulting Unavailable SALDIVAR, LEONORA PAC Attending Unavailable SALDIVAR, LEONORA PAC Admitting Unavailable SALDIVAR, LEONORA PAC Primary Care Unavailable PROVIDER, UNKNOWN Consulting Unavailable SALDIVAR, LEONORA PAC Consulting Unavailable SHAHEEN, LAURITA MATE RELIEF Admitting Unavailable SHAHEEN, LAURITA MATE RELIEF Primary Care Unavailable SHAHEEN, LAURITA MATE RELIEF Attending Unavailable PROVIDER, UNKNOWN Consulting Unavailable Podiatry Provider Unavailable Unavailable Saldivar PA, Leonora Primary Care Provider 1([facility])[phone] Mejía ASSOCIATE PROGRAM MANAGER-C, Ashanti Attending Provider Mejía ASSOCIATE PROGRAM MANAGER-C, Ashanti Referring Provider Saldivar PA, Leonora Referring Provider 1([facility])[phone] Carin SEQUEIRA, Dr. Montes Attending Provider 1([facility])[phone] Mejía ASSOCIATE PROGRAM MANAGER-C, Ashanti Other Provider 1([facility])[phone] Dr. Dangelo Muller DO Attending Provider 1([facility])[phone] Saldivar PA, Leonora Primary Care Provider 1([facility])[phone] Kym ASSOCIATE PROGRAM MANAGER-C, Ashanti Attending Provider Mejía ASSOCIATE PROGRAM MANAGER-C, Ashanti Referring Provider Saldivar PA, Leonora Primary Care Provider 1([facility])[phone] Mejía ASSOCIATE PROGRAM MANAGER-C, Ashanti Attending Provider Mejía ASSOCIATE PROGRAM MANAGER-C, Ashanti Referring Provider Marjorie SEQUEIRA, Dr. Castañeda Attending Provider 1([facility] )[phone] Dr. Maddy Amador MD Other Provider 1([facility])[phone] [facility], . Unavailable Jensen SEQUEIRA, Dr. Felder Attending Provider 1([facility])[phone] Carin SEQUEIRA, Dr. Montes Referring Provider 1([facility])[phone] Simon Del Rosario Referring Unavailable Simon Del Rosario Attending Unavailable Saldivar, Leonora Primary Care Unavailable MejíaAshanti Attending Unavailable Mejía Asahnti Referring Unavailable Saldivar, Leonora Primary Care Unavailable Simon Del Rosario Attending Unavailable Saldivar, Leonora Primary Care Unavailable Kym Ashanti Consulting Unavailable Mejía Ashanti Referring Unavailable Dangelo Muller Attending Unavailable Saldivar, Leonora Primary Care Unavailable Saldivar, Leonora Referring Unavailable MejíaAshanti Attending Unavailable Saldivar, Leonora Primary Care Unavailable Saldivar, Leonora Referring Unavailable Carin, [place] Attending Unavailable Saldivar, Leonora Primary Care Unavailable Mejía, Ashanti Attending Unavailable Saldivar, Leonora Referring Unavailable Saldivar, Leonora Primary Care Unavailable Mejía, Ashanti Attending Unavailable Saldviar, Leonora Referring Unavailable Saldivar, Leonora Primary Care Unavailable Saldivar, Leonora Referring Unavailable Saldivar, Leonora Primary Care Unavailable Maddy Amador Attending Unavailable Maddy Amador Consulting Unavailable Kym, Ashanti Referring Unavailable Dangelo Muller Attending Unavailable Saldivar, Leonora Primary Care Unavailable Mejía, Ashanti Attending Unavailable Mejía, Ashanti Referring Unavailable Saldivar, Leonora Primary Care Unavailable Mejía, Ashanti Attending Unavailable Mejía, Ashanti Referring Unavailable Saldivar, Leonora Primary Care Unavailable Saldivar, Leonora Primary Care Unavailable Carin, [place] Referring Unavailable Carin, [place] Attending Unavailable Kym, Ashanti Attending Unavailable Kym, Ashanti Attending Unavailable Mejía, Ashanti Referring Unavailable Saldivar, Leonora Primary Care Unavailable Saldivar, Leonora Referring Unavailable Saldivar, Leonora Primary Care Unavailable Maddy Amador Attending Unavailable Zack Whalen Referring Unavailable Zack Whalen Attending Unavailable Saldivar, Leonora Primary Care Unavailable Allergies Allergy Classification Reported Allergen(s) Allergy Type Date of Onset Reaction(s) Facility (5 sources) Sulfamethoxazole / Trimethoprim; Translations: [SULFAMETHOXAZOLE-TRI METHOPRIM] Drug Allergy 8 GI Upset [facility] Medications Current Medications Medication Drug Class(es) Dates Sig (Normalized) Sig (Original) Acetaminophen (4 sources) acetaminophen (T YLENOL ORAL) Take by mouth every 6 hours as needed. Active acetaminophen (T YLENOL ORAL) Take by mouth every 6 hours as needed. 0 Active [id number] 200 actuat albuterol 0.09 mg/actuat metered dose inhaler (20 sources) beta2-Adrenergic Agonist Start: 09-15-2023 End: 03-05-2025 Albuterol Sulfate 90 mcg/actuation HFA aerosol inhaler Active 2 NMA INHALATION Q4H as needed for shortness of breath or wheezing 8.5 March 05, 2025 1:12pm administer with spacer Start: [...] above: rarely needs Medication taken as needed. Calcium Carbonate / vitamin D3 (4 sources) calcium carbonat e/vitamin D3 (CALCIUM 600 + D ORAL) Take by mouth. Active calcium carbonat e/vitamin D3 (CALCIUM 600 + D ORAL) Take by mouth. 0 Active cetirizine hydrochloride 10 mg oral tablet (3 sources) Histamine-1 Receptor Antagonist Start: 04-19-2025 take 1 tablet by mouth once daily as needed Cetirizine (24hour Allergy) 10 mg tablet Active 10 mg PO DAILY as needed for allergy symptoms April 19, 2025 12:00am cholecalciferol 0.25 mg oral capsule (11 sources) Vitamin D Start: 05-10-2025 take 1 capsule by mouth every week Cholecalciferol (Vitamin D3) 250 mcg (10,000 unit) capsule Active 250 ug PO EVERY WEEK May 10, 2025 12:00am Start: 09-15-2023 End: 04-19-2025 take 1 capsule by mouth every week Cholecalciferol (Vitamin D3) 250 mcg (10,000 unit) capsule Discontinued 250 ug PO EVERY WEEK September 15, 2023 1:00am April 19, 2025 11:58am Start: 09-15-2023 take 1 capsule by mo [facility] every week Cholecalciferol (Vitamin D3) 250 mcg [...] 12:00am docusate sodium 50 mg / sennosides, senior living 8.6 mg oral tablet (20 sources) Stool [...] 15, 2023 1:00am August 28, 2024 2:18pm Pqyqqvwtqim-Jzftokdwe-Rphtyx er (4 sources) Anticholinergic, Corticosteroid, beta2-Adrenergic Agonist Start: 04-10-2025 Qchmfygkytr-Smolglmlh-Ttxmje er (Trelegy Ellipta) 100-62.5-25 mcg blister with device Active 1 NMA INHALATION daily 60 April 10, 2025 12:00am Chronic obstructive pulmonary disease, unspecified administer at approximately the same time(s) each day Start: 04-10-2025 Fluticasone-Um eclidin-Vilanter (Trelegy Ellipta) 100-62.5-25 mcg blister with device Active 1 NMA INHALATION daily April 10, 2025 12:00am administer at approximately the same time(s) each day Ibuprofen (4 sources) Nonsteroidal Anti-inflammatory Drug IBUPROFEN ORAL Take by mouth as needed. Active IBUPROFEN ORAL T marisol by mouth as needed. 0 Active Inhalational Spacing Device (Space Chamber) spacer (8 sources) Start: 11-03-2023 Inhalational S pacing Device (Space Chamber) spacer Active NMA .ROUTE .MEDSUPPLY November 03, 2023 1:00am As directed Start: 11-03-2023 Inhalational S pacing Device (Space Chamber) spacer Active EACH .ROUTE .MEDSUPPLY November 03, 2023 1:00am As directed Start: 11-03-2023 Inhalational S pacing Device (Space Chamber) spacer Active EACH .ROUTE .MEDSUPPLY November 03, 2023 12:00am As directed Marijuana Medical Card (4 sources) Start: 04-16-2025 Marijuana Medi norbert Card Active .Route April 16, 2025 12:00am As ordered Multivit With Min-Folic Acid (1 source) Start: 01-03-2024 take 1 tablet by mouth once daily Multivit With Min-Folic Acid Active TABLET PO DAILY January 03, 2024 1:00am Multivit With Min-Folic Acid 0.4 mg tablet (6 sources) Start: 01-03-2024 Multivit With Min-Folic Acid 0.4 mg tablet Active 1 {tbl} PO DAILY January 03, 2024 1:00am Start: 01-03-2024 Multivit With Min-Folic Acid 0.4 mg tablet Active {tbl} PO DAILY January 03, 2024 1:00am mv-min/iron/folic/calcium/vi tK (WOMEN'S MULTIVITAMIN ORAL) (4 sources) mv-min/iron/foli c/calcium/vitK (WOMEN'S MULTIVITAMIN ORAL) Take by [...] 02-Nov-2023 Start: 09-15-2023 take 1 capsule by [facility] once daily Omeprazole 20 mg capsule,delayed release(DR/EC) Active 20 mg PO DAILY September 15, 2023 1:00am Trelegy Ellipta 200 mcg-62.5 mcg-25 mcg powder for inhalation (17 sources) Trelegy Ellipta 200 mcg-62.5 mcg-25 mcg [...] as instructed once daily. 0 03/16/2024 Active Vitamin B Complex tablet (2 sources) Start: 05-30-2025 Vitamin B Comp sumanth tablet Active 1 {tbl} PO daily May 30, 2025 12:00am zolpidem tartrate 5 mg oral tablet (20 sources) gamma-Aminobutyr ic Acid-ergic Agonist Start: 02-28-2024 take 1 tablet by mouth at bedtime as needed for sleep Zolpidem 5 mg tablet Active 5 mg PO AT BEDTIME as needed for sleep August 28, 2024 12:00am Completed/Discontinued Medications Medication [...] Comment on above: start first start second calcium carbonate 1500 mg / cholecalciferol 200 unt oral tablet (20 sources) Vitamin D Start: 04-19-2025 End: 05-10-2025 Calcium Carbonate-Vitamin D3 (Calcium 600 + D(3)) 600 mg-5 mcg (200 unit) tablet Discontinued 1 {tbl} PO DAILY April 19, 2025 12:00am May 10, 2025 1:50pm calcium carbonat e 600 mg-vitamin D3 5 mcg (200 unit) tablet ; (600 mg-5 mcg (200 unit)) codeine phosphate 2 mg/ml / guaiFENesin 20 mg/ml oral solution (20 sources) Opioid Agonist Start: 02-12-2012 End: 03-20-2014 GUAIFENESIN-CODEINE, 100-10MG/5ML (Oral Syrup) ; 1-2 teaspoon(s) every six hours, as needed for cough for 0 days Quantity: 120 {Milliliter} Refills: 0 Ordered: 20-Mar-2014 MD Barbra Blanchard Start: 12-Feb-2012 End: 20-Mar-2014 Status: Inactive Comments: Medication taken as needed. will cause drowsiness Comment on above: Medication taken as needed. will cause drowsiness colchicine 0.6 mg oral tablet (1 source) Start: 07-03-2019 End: 03-27-2024 colchicine 0.6 mg tablet take one a day, if tolerated, take two a day 60 tablet 5 07/03/2019 03/27/2024 Discontinued cyclobenzaprine hydrochloride 10 mg oral tablet (20 sources) Muscle Relaxant Start: 12-12-2015 End: 01-04-2017 take 1 tablet by mouth every eight [...] capsule (20 sources) Histamine-1 Receptor Antagonist Start: 08-27-2023 End: 07-13-2024 take 1 capsule by mouth at bedtime Unisom SleepGels 50 mg capsule ; 1 (one) capsule at bedtime for 0 days Quantity: 30 {Capsule} Refills: 0 Ordered: 13-Jul-2024 ALISON Smith Start: 27-Aug-2023 End: 13-Jul-2024 Status: Inactive docusate sodium 100 mg oral capsule (20 sources) Start: 04-19-2025 End: 05-10-2025 take 1 capsule by mouth once daily Docusate Sodium (Col-Rite) 100 mg capsule Discontinued 100 mg PO DAILY April 19, 2025 12:00am May 10, 2025 1:50pm Start: 06-07-2017 End: 09-15-2023 take 1 capsule by mouth twice daily Docusate Sodium 100 MG capsule Discontinued 100 mg PO TWICE A DAY January 10, 2019 9:12am September 15, 2023 11:38am Docusate Sodium 100 mg tab Take by mouth twice daily. Active doxylamine succinate 25 mg oral tablet (9 sources) Start: 01-10-2019 End: 09-15-2023 Doxylamine Succinate [...] 12:00am August 01, 2018 10:47am Fluticasone Propion-Salmeterol (9 sources) Corticosteroid, beta2-Adrenergic Agonist Start: 08-26-2018 End: 08-26-2018 Fluticasone Propion-Salmeterol (Advair Hfa) 230-21 mcg/actuation HFA aerosol inhaler Discontinued 2 NMA INHALATION TWICE A DAY 12 August 26, 2018 12:00am August 26, 2018 2:17pm Start: 08-26-2018 End: 08-26-2018 Fluticasone Propion-Salmeter ol (Advair Hfa) 230-21 mcg/actuation HFA aerosol inhaler [...] 11:00pm August 26, 2018 1:17pm Fluticasone Furoate-Vilanterol (18 sources) Corticosteroid, beta2-Adrenergic Agonist Start: 09-02-2018 End: [...] device Discontinued 1 INH INHALATION daily 60 September 02, 2018 2:19pm November 22, 2018 2:50pm after inhalation, rinse mouth with water and spit out; do not swallow Start: 09-02-2018 End: 11-22-2018 Fluticasone Furoate-Vilanter ol (Breo Ellipta) 200-25 mcg/dose blister with device Discontinued 1 INH INHALATION daily 60 September 02, 2018 1:19pm November 22, 2018 1:50pm after inhalation, rinse mouth with water and spit out; do not swallow Start: 08-26-2018 End: 09-02-2018 Fluticasone Furoate-Vilanter ol (Breo Ellipta) 200-25 mcg/dose blister with device Discontinued 1 NMA INHALATION daily 60 August 26, 2018 12:00am September 02, 2018 [...] water and spit out; do not swallow Ushfeubakfn-Skdxciwzf-Ctzjyj er (19 sources) Start: 02-12-2025 End: 04-10-2025 Uuecbfxsnpv-Kjqztrhwo-Axscwn er (Trelegy Ellipta) 200-62.5-25 mcg blister with device Discontinued 1 NMA INHALATION DAILY 60 6 February 12, 2025 2:00pm April 10, 2025 10:56am Start: 02-12-2025 End: 04-10-2025 Qzmqzplaivx-Mtbsbhrcd-Bzhosk er (Trelegy Ellipta) 200-62.5-25 mcg blister with device Discontinued 1 NMA INHALATION DAILY 60 February 12, 2025 2:00pm April 10, 2025 10:56am Start: 02-12-2025 Fluticasone-Um eclidin-Vilanter (Trelegy Ellipta) 200-62.5-25 mcg blister with device Active 1 NMA INHALATION DAILY 60 February 12, 2025 2:00pm Start: 05-29-2024 End: 02-12-2025 Jherrrvebjx-Uddrtccey-Ujirgy er (Trelegy Ellipta) 200-62.5-25 mcg blister with device Discontinued 1 NMA INHALATION DAILY 60 May 29, 2024 12:34pm February 12, 2025 2:00pm Start: 05-29-2024 End: 02-12-2025 Vngfyyfgrwr-Fqyxspxeb-Qmsaqp er (Trelegy Ellipta) 200-62.5-25 mcg blister with device Discontinued 1 NMA INHALATION DAILY 60 May 29, 2024 12:34pm February 12, 2025 2:00pm Start: 01-03-2024 End: 05-29-2024 Jlbrcekwwrk-Hjuechbwo-Ukksyd er (Trelegy Ellipta) 200-62.5-25 mcg blister with device Discontinued 1 NMA INHALATION DAILY 60 January 03, 2024 1:00am May 29, 2024 12:34pm Start: 01-03-2024 End: 05-29-2024 Ldbhwxrqhkn-Cbtlxrepa-Rqsapq er (Trelegy Ellipta) 200-62.5-25 mcg blister with [...] may cause drowsiness Multivitamin 1 EACH tablet (6 sources) Start: 04-20-2017 End: 08-01-2018 Multivitamin 1 [...] tablet (20 sources) Cholinergic Muscarinic Antagonist Start: End: take 1 tablet by mouth twice daily Oxybutynin Chloride 10 mg tablet extended release 24hr Discontinued 10 mg PO TWICE A DAY April 19, 2025 12:00am May 10, 2025 1:50pm Start: 05-29-2024 End: 05-29-2025 take 1 tablet [...] mg) oxyCODONE hydrochloride 5 mg oral tablet (9 sources) Opioid Agonist Start: 06-07-2017 End: 08-01-2018 take 1 tablet by mouth every four hours as needed for pain Oxycodone 5 MG tablet Discontinued 5 mg PO EVERY 4 HOURS NEEDED as needed for Mod-Severe Pain (-08/17) 20 0 June 07, 2017 12:00am August 01, 2018 [...] 4 days. pregabalin 50 mg oral capsule (20 sources) Start: 03-05-20 End: 04-16-20 take 1 capsule by mouth twice daily Pregabalin 50 mg capsule Discontinued 50 mg PO TWICE A DAY March 05, 2025 12:00am April 16, 2025 11:23am progesterone 100 mg oral capsule (9 sources) Progesterone Start: 05-29-20 End: 05-29-20 25 take 1 capsule by mouth at bedtime Progesterone Micronized 100 mg capsule Discontinued 100 mg PO AT BEDTIME August 28, 2024 12:00am April 16, 2025 11:23am sertraline 50 mg oral tablet (20 sources) Serotonin Reuptake Inhibitor Start: 02-26-20 12 End: 03-20-20 14 take 0.5 tablet by [...] sources) Partial Cholinergic Nicotinic Agonist Start: 07-19-20 End: 01-04-20 24 take 1 tablet by mouth twice daily Varenicline Tartrate 1 mg tablet Discontinued 1 mg PO TWICE A DAY September 15, 2023 1:00am January 03, 2024 2:50pm Start: 06-11-2023 End: 01-04-2024 varenicline 0.5 mg [...] 01, 2018 12:00am November 22, 2018 2:17pm Vitamin B Complex (Complex B-100) tablet extended release (3 sources) Start: 04-19-2025 End: 05-10-2025 Vitamin B Complex (Complex B -100) tablet extended release Discontinued 1 {tbl} PO DAILY April 19, 2025 12:00am May 10, 2025 1:50pm Start: 04-19-2025 Vitamin B Comp sumanth (Complex B-100) tablet extended release Active 1 {tbl} PO DAILY April 19, 2025 12:00am vitamin b6 100 mg oral tablet (1 source) End: 03-27-2024 take 1 tablet by mouth once daily pyridoxine, vitamin B6, (VITAMIN B-6) 100 mg tablet Take 100 mg by mouth once daily. 0 03/27/2024 Discontinued Problems Active Problems Problem Classification Problem Date Documented Date Episodic/Chronic Abdominal pain (9 sources) Abdominal pain; Translations: [Unspecified abdominal pain] 12-29-2018 Episodic Acute bronchitis (20 sources) Acute bronchitis 08-04-2021 Episodic Administrative/socia l admission (20 sources) Patient encounter status; Translations: [Tobacco abuse counseling] 08-04-2021 Episodic Alcohol-related disorders (20 sources) Alcohol abuse; Translations: [Alcohol abuse, uncomplicated] 08-09-2023 Chronic Anxiety disorders (9 sources) Anxiety; Translations: [Anxiety disorder, unspecified] 12-29-2018 Chronic Asthma (19 sources) Moderate persistent asthma; Translations: [Moderate persistent asthma, uncomplicated] Onset: 03-27-2024 12-29-2018 Chronic Chronic obstructive pulmonary disease and bronchiectasis (20 sources) Chronic obstructive lung disease; Translations: [Chronic obstructive pulmonary disease, unspecified] Onset: 09-15-2023 12-29-2018 Chronic Chronic obstructive pulmonary disease and bronchiectasis (9 sources) Bronchitis; Translations: [Bronchitis, not specified as acute or chronic] 12-29-2018 Episodic Chronic obstructive pulmonary disease and bronchiectasis (1 source) Chronic obstructive pulmonary disease and bronchiectasis; Translations: [Other specified chronic obstructive pulmonary disease] Onset: 01-10-2025 Conditions associated with dizziness or vertigo (20 sources) Vertigo; Translations: [Dizziness and giddiness] 02-02-2025 Episodic Esophageal disorders (13 sources) Gastroesophageal reflux disease; Translations: [Gastro-esophageal reflux disease without esophagitis] Onset: 03-27-2024 12-29-2018 Chronic Fluid and electrolyte disorders (20 sources) Hyperkalemia; Translations: [Hyperkalemia] 08-04-2021 Episodic Genitourinary symptoms and ill-defined conditions (20 sources) Incontinence; Translations: [Unspecified urinary incontinence] 08-09-2023 Chronic Heart valve disorders (14 sources) Heart murmur; Translations: [Cardiac murmur, unspecified] Onset: 03-27-2024 12-29-2018 Episodic Immunizations and screening for infectious disease (20 sources) Immunization due; Translations: [Encounter for immunization] 07-22-2023 Episodic Malaise and fatigue (20 sources) Fatigue; Translations: [Other fatigue] Onset: 05-30-2025 12-29-2018 Episodic Menopausal disorders (1 source) Menopausal [...] sources) Chest pain; Translations: [Chest pain, unspecified] Onset: 06-04-2025 08-09-2023 Episodic Comment on above: RIGHT SIDE, HAD ECHO DONE, HAS APPT W/ CARDIOLOGY Nutritional deficiencies (1 source) Vitamin D deficiency, unspecified; Translations: [Vitamin D deficiency, unspecified] Onset: 08-26-2023 Chronic Other aftercare (20 sources) Drug indicated; Translations: [Other intermediate teacher (current) drug therapy] 08-04-2021 Episodic Other and ill-defined heart disease (12 sources) Diastolic dysfunction; Translations: [Other ill-defined heart diseases] 04-16-2025 Chronic Comment on above: Stage I Other and ill-defined heart disease (1 source) Other ill-defined heart diseases; Translations: [Other ill-defined heart diseases] Onset: 05-30-2025 Chronic Other and unspecified benign neoplasm (6 sources) History of polyp of colon; Translations: [History of colonic polyps] 04-23-2025 Episodic Other circulatory disease (20 sources) Vasculitis; Translations: [Arteritis, unspecified] 12-29-2018 Chronic Other complications of ; puerperium affecting management of mother (9 sources) Deliveries by ; Translations: [Encounter for delivery without indication] 12-29-2018 Episodic Comment on above: X2 Other connective tissue disease (20 sources) Fibromyalgia; Translations: [Fibromyalgia] 08-27-2023 Episodic Other connective tissue disease (20 sources) Pain in right foot; Translations: [Pain in right foot] 08-09-2023 Episodic Other connective tissue disease (5 sources) Fibromyalgia; Translations: [Myalgia and myositis, unspecified] Onset: 08-26-2023 11-03-2023 Episodic Other connective tissue disease (20 sources) Pain in right heel; Translations: [Pain in right foot] 01-08-2025 Episodic Other connective tissue disease (1 source) Plantar fascial fibromatosis; Translations: [Plantar fascial fibromatosis] Onset: 06-08-2025 Episodic Other connective tissue disease (1 source) Calcaneal spur, right foot; Translations: [Calcaneal spur, right foot] Onset: 06-08-2025 Episodic Other connective tissue disease (1 source) Peroneal tendinitis, right leg; Translations: [Peroneal tendinitis, right leg] Onset: 06-08-2025 Episodic Other diseases of bladder and urethra (20 sources) Overactive bladder; Translations: [Overactive bladder] 08-09-2023 Chronic Other ear and sense organ disorders (6 sources) Pain of ear structure; Translations: [Otalgia, unspecified ear] 05-25-2025 Episodic Other inflammatory condition of skin (20 [...] Episodic Other nutritional; endocrine; and metabolic disorders (16 sources) Obesity; Translations: [Obesity, unspecified] 03-05-2025 Chronic [...] Translations: [Abnormal weight gain] 05-29-2024 Episodic Other screening for suspected conditions (not mental disorders or infectious disease) (20 sources) Ultrasonography of breast abnormal; Translations: [Other abnormal and inconclusive findings on diagnostic imaging of breast] Onset: 12-26-2024 12-29-2018 Episodic Comment on above: Left Other skin disorders (20 sources) Skin tag; Translations: [Other hypertrophic disorders of the skin] 08-04-2021 Episodic Other upper respiratory disease (20 sources) Lesion of nose; Translations: [Other specified disorders of nose and nasal sinuses] 07-13-2024 Episodic Other upper respiratory infections (20 sources) Upper respiratory infection; Translations: [Acute upper respiratory infection, unspecified] 02-02-2025 Episodic Residual codes; unclassified (12 sources) Daytime hypersomnia; Translations: [Hypersomnia, unspecified] 03-05-2025 Chronic Residual codes; unclassified (8 sources) Obstructive sleep apnea syndrome; Translations: [Obstructive sleep apnea (adult) (pediatric)] 04-16-2025 Chronic Comment on above: AHI 10.2 Residual codes; unclassified (1 source) Obstructive sleep apnea (adult) (pediatric); Translations: [Obstructive sleep apnea (adult) (pediatric)] Onset: 04-16-2025 Chronic Residual codes; unclassified (1 source) Hypersomnia, unspecified; Translations: [Hypersomnia, unspecified] Onset: 03-05-2025 Chronic Residual codes; unclassified (9 sources) Past history of procedure; Translations: [Other specified postprocedural states] 01-23-2019 Episodic Comment on above: 01/11/19 Residual codes; unclassified (13 sources) History of colonoscopy; Translations: [Other specified postprocedural states] Onset: 03-27-2024 01-23-2019 Episodic Comment on above: 01/11/19 Residual codes; unclassified (20 sources) Insomnia; Translations: [Insomnia, unspecified] 08-27-2023 Episodic [...] second round of treatment.Patient recently saw the admission discharge rn she was referred to and was given [...] for Well adult female: 3.6.19 colonoscopy polyps 05.22.24 mammo normalPt said she has been getting [...] per night. Note for Well adult female: 3.6. colonoscopy polyps - repeat in 3-5 years05.22. mammo normalPt said she has been getting sores in her nose for the last month. She has been putting a salve on them with only temporary relief of her symptoms. She denies any runny nose, nasal congestion, fever, or chills.Pt said she deals with fatigue and feels she can just fall asleep all the time. 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 [...] breath with talking. She is currently seeing personal service workers and has upcoming appointment in February to [...] worse. The pain is constant. 01-08-2025 Unclassified (6 sources) I51.89 - Other ill-defined heart diseases Unclassified (1 source) Personal history of colon polyps, unspecified; Translations: [Personal history of colon polyps, unspecified] Onset: 05-07-2025 Unclassified (1 source) Obesity, class 1; Translations: [...] trimester] Onset: 12-31-2006 Resolved: 03-27-2024 03-27-2024 Episodic Unclassified (20 sources) Well adult female - [...] for Sweet Syndrome. Patient was seen at [facility] for a rash on her thighs back [...] rash previously [facility] her with Sweet's Syndrome (from [...] burning prior to bumps appearing. 10-09-2015 Unclassified (13 sources) spot below eye - Patient also stated that she just woke up 3 days ago and she has a spot under her left eye; worsening. Red and mcintyre. Did have some burning prior to bumps appearing. 10-09-2015 Unclassified (13 sources) [ADDITIONAL REASON] Cold Symptoms - Symptoms [...] inhalers. + wheezing and SOB. 10-09-2015 Unclassified (16 sources) Follow up for multiple chronic conditions [...] breath with talking. She is currently seeing personal service workers and has upcoming appointment in February to [...] to have a colonoscopy completed. 01-08-2025 Unclassified (13 sources) Cold Symptoms - Symptoms include nasal [...] Test Name Value Interpretation Reference Range Facility Absolute lymphocyte countOrd ered By: [facility]25 Lymphocytes Auto (Unsp spec) [#/Vol] 1.94 10*3/uL 0.83-4.51 [facility] Absolute neutrophil countOrd ered By: [facility] on 05-30-2025 Neutrophils (Bld) [#/Vol] 4.2 10*3/uL 2.0-7.7 [facility] Anion gap in Serum or Plasma Ordered By: [facility] on 05-30-2025 Anion gap [Moles/Vol] 11 mmol/L 5-15 [facility] Automated lymphocyte count a s percentage of total leukocytesOrdered By: [facility] on 05-30-2025 Lymphocytes/100 WBC Auto (Unsp spec) 28.7 % 19-41 [facility] BUN/creatinine ratioOrdered By: [facility] on 05-30-2025 Urea nitrogen/Creatinine [Mass ratio] 18.4 mg/mg 08-27 [facility] Basic Metabolic Profile (BMP )on 05-30-2025 BUN/CRE 18.4 RATIO Normal 08-27 [facility] Comment on above: Performed By: #### L 500.2500, L503.7505, L100.0100 #### [facility] [address] [place], [address] Calcium [Mass/Vol] 9.5 mg/dL Normal 7.6-11.0 [facility] Comment on above: Performed By: #### L 500.2500, L503.7505, L100.0100 #### [facility] [address] [place], [address] Chloride [Moles/Vol] 105 mmol/L Normal 98-108 [facility] Comment on above: Performed By: #### L 500.2500, L503.7505, L100.0100 #### [facility] [address] [place], [address] CO2 [Moles/Vol] 25.0 mmol/L Normal 21.0-32.0 [facility] Comment on above: Performed By: #### L 500.2500, L503.7505, L100.0100 #### [facility] [address] [place], [address] Creatinine [Mass/Vol] 0.61 mg/dL Low 0.70-1.20 [facility] Comment on above: Performed By: #### L 500.2500, L503.7505, L100.0100 #### [facility] [address] [place], [address] GAP 11 Normal 5-15 [facility] Comment on above: Performed By: #### L 500.2500, L503.7505, L100.0100 #### [facility] [address] [place], [address] GFR/1.73 sq M.predicted among non-blacks MDRD (S/P/Bld) [Vol rate/Area] 109 mL/min/{1.73_m2} Normal >60 [facility] Comment on above: Result Comment: mL/m in/1.73m2 CKD-EPI Creatinine Equation (2020) Performed By: #### L 500.2500, L503.7505, L100.0100 #### [facility] [address] [place], [address] Glucose [Mass/Vol] 89 mg/dL Normal 70-99 [facility] Comment on above: Performed By: #### L 500.2500, L503.7505, L100.0100 #### [facility] [address] [place], [address] Potassium [Moles/Vol] 3.7 mmol/L Normal 3.3-5.1 [facility] Comment on above: Performed By: #### L 500.2500, L503.7505, L100.0100 #### [facility] [address] [place], [address] Sodium [Moles/Vol] 141 mmol/L Normal 133-145 [facility] Comment on above: Performed By: #### L 500.2500, L503.7505, L100.0100 #### [facility] [address] [place], [address] Urea nitrogen [Mass/Vol] 11 mg/dL Normal 4-19 [facility] Comment on above: Performed By: #### L 500.2500, L503.7505, L100.0100 #### [facility] [address] [place], [address] Basophil percentageOrdered B y: Simon Carin on 05-30-2025 Basophils/100 WBC (Bld) 0.3 % 0-1 [facility] CBC W/Diff, Automatedon 05-09 Absolute Lymph 1.94 X10 3/uL Normal 0.83-4.51 [facility] Comment on above: Performed By: #### L 500.2500, L503.7505, L100.0100 #### [facility] [address] [place], [address] Absolute Neut 4.2 X10 3/uL Normal 2.0-7.7 [facility] Comment on above: Performed By: #### L 500.2500, L503.7505, L100.0100 #### [facility] [address] [place], [address] Basophils/100 WBC (Bld) 0.3 % Normal 0-1 [facility] Comment on above: Performed By: #### L 500.2500, L503.7505, L100.0100 #### [facility] [address] [place], [address] Eosinophils/100 WBC (Bld) 1.6 % Normal 0-5 [facility] Comment on above: Performed By: #### L 500.2500, L503.7505, L100.0100 #### [facility] [address] [place], [address] Erythrocyte distribution width (RBC) [Ratio] 13.4 % Normal 11.6-14.6 [facility] Comment on above: Performed By: #### L 500.2500, L503.7505, L100.0100 #### [facility] [address] [place], [address] Hematocrit (Bld) [Volume fraction] 38.5 % Normal 37-47 [facility] Comment on above: Performed By: #### L 500.2500, L503.7505, L100.0100 #### [facility] [address] [place], [address] Hemoglobin (Bld) [Mass/Vol] 12.4 g/dL Normal 12.0-15.0 [facility] Comment on above: Performed By: #### L 500.2500, L503.7505, L100.0100 #### [facility] [address] [place], [address] IG% 0.400 Normal 0.0-0.9 [facility] Comment on above: Result Comment: IG% - Immature Granulocytes (promyelocytes, myelocytes and metamyelocytes) > 1% indicates that a LEFT SHIFT is Present. Performed By: #### L 500.2500, L503.7505, L100.0100 #### [facility] [address] [place], [address] Lymphocytes/100 WBC (Bld) 28.7 % Normal 19-41 [facility] Comment on above: Performed By: #### L 500.2500, L503.7505, L100.0100 #### [facility] [address] [place], [address] MCH (RBC) [Entitic mass] 28.8 pg Normal 27.0-32.0 [facility] Comment on above: Performed By: #### L 500.2500, L503.7505, L100.0100 #### [facility] [address] [place], [address] MCHC (RBC) [Mass/Vol] 32.2 g/dL Normal 32-36 [facility] Comment on above: Performed By: #### L 500.2500, L503.7505, L100.0100 #### [facility] [address] [place], [address] MCV (RBC) [Entitic vol] 89.3 fL Normal 81-99 [facility] Comment on above: Performed By: #### L 500.2500, L503.7505, L100.0100 #### [facility] [address] [place], [address] Monocytes/100 WBC (Bld) 6.2 % Normal 0-10 [facility] Comment on above: Performed By: #### L 500.2500, L503.7505, L100.0100 #### [facility] [address] [place], [address] Neutrophils/100 WBC (Bld) 62.8 % Normal 47-70 [facility] Comment on above: Performed By: #### L 500.2500, L503.7505, L100.0100 #### [facility] [address] [place], [address] Nucleated RBC (Bld) [#/Vol] 0 10*3/uL Normal 0-5 [facility] Comment on above: Performed By: #### L 500.2500, L503.7505, L100.0100 #### [facility] [address] [place], [address] Platelet mean volume (Bld) [Entitic vol] 10.7 fL Normal 6.2-12.0 [facility] Comment on above: Performed By: #### L 500.2500, L503.7505, L100.0100 #### [facility] [address] [place], [address] Platelets (Bld) [#/Vol] 262 10*3/uL Normal 150-450 [facility] Comment on above: Performed By: #### L 500.2500, L503.7505, L100.0100 #### [facility] [address] [place], [address] RBC (Bld) [#/Vol] 4.31 10*6/uL Normal 4.2-5.4 [facility] Comment on above: Performed By: #### L 500.2500, L503.7505, L100.0100 #### [facility] [address] [place], [address] RDW SD 43.8 fl Normal 35.1-43.9 [facility] Comment on above: Performed By: #### L 500.2500, L503.7505, L100.0100 #### [facility] [address] [place], [address] WBC (Bld) [#/Vol] 6.8 10*3/uL Normal 4.4-11.0 [facility] Comment on above: Performed By: #### L 500.2500, L503.7505, L100.0100 #### [facility] [address] [place], [address] Carbon dioxide, total [Moles /volume] in Central venous bloodOrdered By: Simon Del Rosario on 05-30-2025 CO2 [Moles/Vol] 25.0 mmol/L 21.0-32.0 [facility] Cardiology Visit Reporton Cardiology Visit Report [facility] [address] [place] [address] OFFICE VISIT Date of Service: 05/30/25 MR#: [id number] Acct: [id number] Name: LILLIE HOLLAND Rep #: [id number] : 1975 Provider: Dr. Simon Del Rosario MD Age/Sex: 49/F Location[place] [facility] Status: Signed HPI HPI History of Present Illness Details: 49-year-old lady with no previous medical history but a history of tobacco use who presented to you for evaluation of shortness of breath. She says that she has been seen in the office and has had shortness of breath with minimal activity. As part of her workup she did have an echocardiogram which demonstrated preserved ejection fraction and stage I diastolic dysfunction no right-sided pressures could be obtained due to the fact that there was no tricuspid valve below. No valvular abnormalities were noted. She has had previous CT scans which have demonstrated mild hyperinflation and the physical exam demonstrated clear lung floyd regular rate and rhythm no pedal edema electrocardiogram demonstrated sinus rhythm with a rate of 64 bpm and a possible lateral infarct. Intake Vital Signs 04/23/25 06:59 05/30/25 11:08 Height 5 ft 3 in 5 ft 3 in Weight: 181 lb BMI 32.1 BP 165/74 H Blood Pressure Location Lt brachial Position Sitting Respiration 16 Pulse 71 Intake Visit Reasons: NOEMI ([facility]) Transitional Care Manager Required: No Accompanied by: Self Is patient in pain?: No Allergies No Known Allergies Allergy (Verified 05/30/25 11:13) Medications ???Medication ???Instructions ???Recorded ???Confirmed ???Type omeprazole 20 mg capsule,delayed 20 mg PO DAILY 09/15/23 05/30/25 H istory release inhalational spacing device (Space #1 ea 11/03/23 04/16/25 History Chamber) multivitamin with minerals-folic 1 tab PO DAILY 01/03/24 05/30/25 H istory acid 0.4 mg tablet zolpidem 5 mg tablet 5 mg PO QHS PRN sleep 08/28/24 History albuterol sulfate 90 mcg/actuation 2 puff inhalation Q4H PRN 05/30/25 Rx aerosol inhaler shortness of breath or wheezing #8.5 grams fluticasone fur. 100 mcg-umeclid 1 inh inhalation QDAY #60 ea 04/1005/30/25 Rx 62.5 mcg-vilant 25 mcg inhalat.powder (Trelegy Ellipta) Marijuana Medical Card .Route 04/16/25 05/30/25 History cetirizine 10 mg tablet (24Hour 10 mg PO DAILY PRN allergy symptom s 04/19/25 05/30/25 History Allergy) cholecalciferol (vitamin D3) 250 250 mcg PO QWEEK 05/10/25 05/30/25 History mcg (10,000 unit) capsule vitamin B complex 1 tab PO QDAY 05/30/25 05/30/25 Hi story PFSH Medical History (Updated 05/30/25 @ 11:[address] Simon Del Rosario MD) Wears glasses Post-menopausal Marijuana use Alcohol use [...] obstructive pulmonary disease) Vasculitis Cough Surgical History Hx of wisdom tooth extraction History of esophagogastroduodenoscopy (EGD) Hx of colonoscopy delivery delivered H/O: hysterectomy Family History Mother Arthritis Diabetes Thyroid disorder Aunt Breast cancer Grandmother Hypertension Diabetes Grandmother CVA (cerebral vascular accident) Social History Smoking Status: Former smoker quit date: 11/30/23 Tobacco: How many years used: 31 Electronic Cigarette Use: not used second hand exposure: Yes alcohol intake: current alcohol intake frequency: a few times a month substance use type: does not use caffeine: Yes frequency: does not exercise ROS Const Const: Positive for fatigue and headache(s); Negative for weakness, daytime sleepiness or difficulty sleeping ENT ENT: Positive for headache(s) and dizziness; Negative for Nosebleed/epistaxis Cardio Chest Pain: Yes Frequency: daily Character: sharp and other (heaviness) Onset: other (H/A occurs at same time on left side of head) Location: mid sternal and left chest (radiates down both arms ) Duration: brief Palpitations: No Edema: Bilateral (BLE trace at times ) Resp Respiratory: Positive for SOB with activity (with minimal activity); Negative for SOB at rest, SOB orthopnea SOB lying down or Cough GI GI: Positive for nausea; Negative vomiting or heartburn Neuro Neuro: Positive for (more content not included)... Normal [facility] Chloride assayOrdered By: Kishore Del Rosario on 05-30-2025 Chloride [Moles/Vol] 105 mmol/L 98-108 [facility] Eosinophil percentageOrdered By: Simon Del Rosario on 05-30-2025 Eosinophils/100 WBC (Bld) 1.6 % 0-5 [facility] Erythrocyte distribution wid th ratioOrdered By: Simon Del Rosario on 05-30-2025 Erythrocyte distribution width (RBC) [Ratio] 13.4 % 11.6-14.6 [facility] Erythrocyte distribution wid th standard deviationOrdered By: Simon Del Rosario on 05-30-2025 Erythrocyte distribution width (RBC) [Ratio] 43.8 fl 35.1-43.9 [facility] Glomerular filtration rate ( GFR) estimation/1.73 sq m using serum, plasma, or whole bOrdered By: Simon Del Rosario on 05-30-2025 GFR/1.73 sq M.predicted among non-blacks MDRD (S/P/Bld) [Vol rate/Area] 109 mL/min/{1.73_m2} >60 [facility] Comment on above: mL/min/1.73m2 CKD-EP I Creatinine Equation (2020) Hematocrit Auto (Bld) [Volum e fraction]Ordered By: Simon [facility] on 05-30-2025 Hematocrit (Bld) [Volume fraction] 38.5 % 37-47 [facility] Hemoglobin measurementOrdere d By: [facility] on 05-30-2025 Hemoglobin (Bld) [Mass/Vol] 12.4 g/dL 12.0-15.0 [facility] Immature granulocytes/100 WB C Auto (Bld)Ordered By: [facility] on 05-30-2025 Immature granulocytes/100 WBC (Bld) 0.400 % 0.0-0.9 [facility] Comment on above: IG% - Immature Granu locytes (promyelocytes, myelocytes and metamyelocytes) > 1% indicates that a LEFT SHIFT is Present. L503.7505on 05-30-2025 Natriuretic peptide B (Bld) [Mass/Vol] 164 pg/mL Normal <=900 [facility] Comment on above: Result Comment: Hear t Failure Unlikely: < 300 pg/mL Heart Failure Likely < 50 Years: > 450 pg/mL 50-75 Years: > 900 pg/mL >75 Years: > 1800 pg/mL Performed By: #### L 500.2500, L503.7505, L100.0100 #### [facility] [address] [place] [address], [id number] MCV (mean corpuscular volume ) determinationOrdered By: Simon Carin on 05-30-2025 MCV (RBC) [Entitic vol] 89.3 fL 81-99 [facility] Mean corpuscular hemoglobin (MCH) determinationOrdered By: Simon Carin on 05-30-2025 MCH (RBC) [Entitic mass] 28.8 pg 27.0-32.0 [facility] Mean corpuscular hemoglobin concentration (MCHC) determinationOrdered By: Simon Carin on 05-30-2025 MCHC (RBC) [Mass/Vol] 32.2 g/dL 32-36 [facility] Mean platelet volume determi nationOrdered By: Simonkaris Del Rosario on 05-30-2025 Platelet mean volume (Bld) [Entitic vol] 10.7 fL 6.2-12.0 [facility] Monocyte percentageOrdered B y: [place] Carin on 05-30-2025 Monocytes/100 WBC (Bld) 6.2 % 0-10 [facility] Natriuretic peptide.B prohor brayden N-Terminal [Mass/volume] in Serum or PlasmaOrdered By: [place] Del Rosario on 05-30-2025 Natriuretic peptide.B prohormone N-Terminal [Mass/Vol] 164 pg/mL <900 [facility] Comment on above: Heart Failure Unlike ly: < 300 pg/mLHeart Failure Likely< 50 Years: > 450 pg/mL50-75 Years: > 900 pg/mL>75 Years: > 1800 pg/mL Neutrophil percentageOrdered By: [place] Carin on 05-30-2025 Neutrophils/100 WBC (Bld) 62.8 % 47-70 [facility] Nucleated red blood cell per centageOrdered By: [place] Carin on 05-30-2025 Nucleated RBC/100 WBC (Bld) [Ratio] 0 % 0-5 [facility] Platelet countOrdered By: Cy ril Carin on 05-30-2025 Platelets (Bld) [#/Vol] 262 10*3/uL 150-450 [facility] Potassium measurement (mass/ volume)Ordered By: Simonkaris Del Rosario on 05-30-2025 Potassium (Unsp spec) [Mass/Vol] 3.7 mmol/L 3.3-5.1 [facility] RBC Auto (Bld) [#/Vol]Ordere d By: [place] Del Rosario on 05-30-2025 RBC (Bld) [#/Vol] 4.31 10*6/uL 4.2-5.4 [facility] Serum creatinine measurement (mass/volume)Ordered By: Simonjaya Del Rosario on 05-30-2025 Creatinine [Mass/Vol] 0.61 mg/dL Low 0.70-1.20 [facility] Serum glucose measurement (m ass/volume)Ordered By: Simon Del Rosario on 05-30-2025 Glucose [Mass/Vol] 89 mg/dL 70-99 [facility] Serum or plasma calcium yasmeen urement (mass/volume)Ordered By: Simon Del Rosario on 05-30-2025 Calcium [Mass/Vol] 9.5 mg/dL 7.6-11.0 [facility] Serum or plasma urea nitroge n measurement (mass/volume)Ordered By: Simon Carin on 05-30-2025 Urea nitrogen [Mass/Vol] 11 mg/dL 4-19 [facility] Sodium levelOrdered By: Iker Del Rosario on 05-30-2025 Sodium [Moles/Vol] 141 mmol/L 133-145 [facility] White blood cell (WBC) count Ordered By: [place] [facility] on 05-30-2025 WBC (Bld) [#/Vol] 6.8 10*3/uL 4.4-11.0 [facility] Colonoscopy Reporton 025 Colonoscopy Report [facility] Medical Records Department [address] [place] [id number] Colonoscopy Report MR#: [id number] Acct: [id number] Name: LILLIE HOLLAND Rep #: [id number] : 1975 49 From: Maddy Amador MD PCP: LINA Mckeon Status:[facility] Patient Name: Lillie Holland Procedure Date: 04/23/2025 8:05 AM Date of : 1975 Age: 49 Procedure: Colonoscopy Indications: High risk colon cancer surveillance: Personal history of colonic polyps Providers: Maddy Amador MD Referring MD: Lina Mckeon Medicines: Monitored Anesthesia Care Patient Profile: This is a 49 year old female. Last Colonoscopy: January 2019. Complications: No immediate complications. Procedure: Pre-Anesthesia Assessment: - Prior to the procedure, a History and Physical was performed, and patient medications and allergies were reviewed. The patient's tolerance of previous anesthesia was also reviewed. The risks and benefits of the procedure and the sedation options and risks were discussed with the patient. All questions were answered, and informed consent was obtained. Prior Anticoagulants: The patient has taken no anticoagulant or antiplatelet agents. ASA Grade Assessment: Per anesthesia. After reviewing the risks and benefits, the patient was deemed in satisfactory condition to undergo the procedure. After I obtained informed consent, the scope was passed under direct vision. Throughout the procedure, the patient's blood pressure, pulse, and oxygen saturations were monitored continuously. The Colonoscope was introduced through the anus and advanced to the cecum, identified by the appendiceal orifice, ileocecal valve and palpation. The colonoscopy was performed without difficulty. The patient tolerated the procedure well. The quality of the bowel preparation was good. Scope In: 8:22:59 AM Scope Withdrawal Time 0 hours 9 minutes 19 seconds Scope Out: 8:36:59 AM Total Procedure Duration Time 0 hours 14 minutes 0 seconds Findings: The perianal and digital rectal examinations were normal. A less than 5 mm polyp was found in the sigmoid colon. The polyp was semi-sessile. The polyp was removed with a hot snare. Resection and retrieval were complete. The exam was otherwise without abnormality on direct and retroflexion views. Impression: - One less than 5 mm polyp in the sigmoid colon, removed with a hot snare. Resected and retrieved. - The examination was otherwise normal on direct and retroflexion views. Recommendation: - Discharge patient to home. - Resume previous diet. - Continue present medications. - Await pathology results. - Repeat colonoscopy in 5-10 years for surveillance based on pathology results. Procedure Code(s): --- Professional --- 38293, PT, Colonoscopy, flexible; with removal of tumor(s), polyp(s), or other lesion(s) by snare technique Diagnosis Code(s): --- Professional --- Z86.010, Personal history of colonic polyps D12.5, Benign neoplasm of sigmoid colon CPT copyright 2021 [employer]. All rights reserved. The codes documented in this report are preliminary and upon remote inpatient coder review may be revised to meet current compliance requirements. MD Maddy cJ MD 04/23/2025 8:41:10 AM This report has been signed electronically. Number of Addenda: 0 Note Initiated On: 04/23/2025 8:05 AM 04/23/25 0841 Date Maddy Gómez Signature: Date (if indicated) CC: Dr. Maddy Amador MD; LINA Mckeon Date Dictated: 04/23/25804 Date Transcribed: Demolition Expert: TR Signed [facility] MR/POSTOP.ANEon 04-23-2025 MR/POSTOP.[facility] Medical Records Department [address] [place] [address] Anesthesia Postop Eval I 04/23/25 0846 MR#: [id number] Acct: [id number] Name: LILLIE HOLLAND Rep #: [id number] : 1975 49 From: Jesse Gore PCP: LINA Mckeon Status:[place] [facility] [place] Race: C Location: [place] [address] Anesthesia: Postop Eval I Current Vital Signs Temperature: 97 F Pulse Rate: 87 Blood Pressure: 83/41 Respiratory Rate: 16 Pulse Ox: 96 Oxygen Delivery Method: Room Air Assessment Airway patent: Yes Spontaneous unlabored respirations: Yes Mental status: Awake and Calm nausea: No Vomiting: No Anesthesia Complication: No Fluid Hydration Crystalloid volume administer (ml): 800 Total IV fluid infused: 800 Progress Note Anesthesia document: Postop Eval 1 completed: Yes 04/23/25845 Date Jesse Gómez Signature: Date CC: Signed [facility] MR/JYAPRLDU9vn 04-23-2025 MR/POSTOPAN2 [facility] Medical Records Department [address] [place] [address] Anesthesia Postop Eval II 04/23/25 1229 MR#: [id number] Acct: [id number] Name: LILLIE HOLLAND Rep #: [id number] : 1975 49 From: Yovani Walker MD PCP: LINA Mckeon Status:DEP [facility] [place] Race: C Location: EN Anesthesia Postop Eval I Sum Postop Eval Completion status Anesthesia document: Postop Eval 1 completed: Yes Anesthesia Postop Eval I Summary Anesthesia Postop Eval I Summary: Anesthesia Postop Eval I: Assessment Summary Airway patent Yes 04/23/25 08:46 [email or web address] Spontaneous unlabored Yes 04/23/25 08:46 [email or web address] respirations Mental status Awake,Calm 04/23/25 08:46 [email or web address] nausea No 04/23/25 08:46 [email or web address] Vomiting No 04/23/25 08:46 [email or web address] Anesthesia Postop Eval I: Fluid Summary Crystalloid volume administer 800 04/23/25 08:46 [email or web address] (ml) Colloids volume administered ( ml) Blood Product volume administered (ml) Total IV fluid infused 800 04/23/25 08:46 [email or web address] Anesthesia Postop Eval I: Summary Notes Anesthesia Complication No 04/23/25 08:46 [email or web address] Anesthesia Complication Comment: Post-operative progress note Anesthesia: Postop Eval II Evaluation Mental status: Awake and Calm Pain Level: 0 nausea: No Vomiting: No Complications Anesthesia Complication: No 04/23/25 1230 Date Yovani Walker MD Cosigner Signature: Date CC: Signed Normal [facility] Surgery Specimen Level Katheryn 04-23-2025 Surgery Specimen Level IV Patient Age/Sex Location Account Attending Physician LILLIE HOLLAND 49/F EN [id number] Dr. Maddy Amador MD Specimen: [id number] Received: 04/23/25 Status: AMRIT Winters Num: [id number] Spec Type: COLON BX Subm Dr: Dr. Maddy Amador MD HEADER OPERATION: Colonoscopy with biopsy PRE-OP DIAGNOSIS: History of colonic polyps TISSUE SUBMITTED: A- Sigmoid colon polyp MICROSCOPIC DIAGNOSIS A. Sigmoid polyp, colon, biopsy: Hyperplastic polyp. MICROSCOPIC DESCRIPTION Slides are reviewed. GROSS DESCRIPTION A. Received in fixative is one container labeled with the patient's name and designated Sigmoid colon polyp. The specimen consists of three irregular fragments of light evans soft tissue that in aggregate measure 0.1 to 0.5 cm. The specimen is totally submitted in one cassette. CPT:66108 [place]/mr 04/23/2025 Patient Age/Sex Location Account Attending Physician LILLIE HOLLAND 49/F EN [id number] Dr. Maddy Amador MD Signed (signature on file) Dr. Tayler Jovel MD 05/01/25 0851 Normal [facility] Comment on above: Performed By: #### P MAHESH #### [facility] Laboratory [facility] [place], [address] MR/Florina 04-19-2025 MR[facility]STEVO[facility] Medical Records Department [address] [place] [address] PAT - Anesthesia 04/19/25 1354 MR#: [id number] Acct: [id number] Name: LILLIE HOLLAND Rep #: [id number] : 1975 49 From: Hans Blair MD PCP: LINA Mckeon Status:PRE [facility] Race: C Location: EN Pre-Assessment Diagnosis/Proposed Procedure Planned Operative Procedure(s): COLONOSCOPY-OA Anesthesia History Anesthesia History - reconciliation clerk: Anesthesia History - reconciliation clerk Hx Hospitalization No 04/19/25 12:09 Any Problems [...] take am of surgery PONV PONV - reconciliation clerk: PONV - reconciliation clerk Female Yes 04/19/25 12:09 HX of Motion [...] 04/16/25 08:57 Respiratory Assessment Respiratory Assessment - reconciliation clerk: Respiratory Tract Infection Hx - reconciliation clerk Hx Respiratory Tract Infection No 04/19/25 12:09 STOP Sleep Apnea STOP Sleep Apnea - reconciliation clerk: STOP Sleep Apnea - reconciliation clerk Hx Hypertension No 04/19/25 12:09 Hx Sleep [...] Tobacco Use History Tobacco Use History - reconciliation clerk: Tobacco Use History - reconciliation clerk Tobacco Use Smoking Status Former smoker 04/19/25 12:09 Hx Tobacco Use Yes 04/19/25 12:09 Years Smoking Packs Smoked per Day Smoking Cessation Date was Yes - quit smoking within 15 04/19/25 12:09 within the last 15 years years Hx Smoking Cessation Date Hx Smoking Cessation Counseling Hematologic Medial History Hematologic Hx - reconciliation clerk: Hematologic Medical Hx - bulk pigment reducer Hx of Blood Transfusion No 04/19/25 12:09 [...] answer at this time (ie. confused, unrespo /Reproduction History /Reproductive History - reconciliation clerk: /Reproductive Hx- reconciliation clerk Hx Now No 04/19/25 12:09 Gestational Age (in weeks): EDC: Hx Hx Para Hx Section SAB No 04/19/25 12:09 PFSH Medical History (Updated 04/19/25 @ 12:08 by [...] 1 tab (more content not included)... Normal [facility] Pulmonary Visit Reporton Pulmonary Visit Report [facility] [place] [address] [place] [address] OFFICE VISIT Date of Service: 04/16/25 MR#: [id number] Acct: [id number] Name: LILLIE HOLLAND Rep #: [id number] : 1975 Provider: PREETHI Mejía Age/Sex: 49/F [place] [facility] Status: Signed Assessment and Plan Assessment and [...] Additional Comments: This note was generated with siXis dictation software. It may contain incorrect words, [...] you recall, she has a greater than 60-lmbz-gidw smoking history but quit completely back in [...] exertion Interpr (more content not included)... Normal [facility] 6 Minute Walk Teston 025 6 Minute Walk Test y [facility] Pulmonary Services/Neurology [address] [facility] [place] [address] MR#: [id number] Acct: [id number] Name: LILLIE HOLLAND Rep #: [id number] : 1975 49 From: Dangelo Muller DO Referring Dr: Ashanti Mejía ASSOCIATE PROGRAM MANAGER ASSOCIATE PROGRAM MANAGER-C Status: DEP CLI Location: PSN Date: Sex: F C PSN 6 Minute Walk Test 6 Minute Walk Test 6 Minute Walk Test: 6 Minute Walk Test PSN:6-Minute Walk Test Start: 03/27/25 12:41 Freq: Status: Discharge Protocol: RESP.6MINW Document 03/27/25 12:28 WLB (Rec: 03/27/25 12:47 WLB [id number]) 6 Minute Walk Test Date Performed 03/27/25 Time Performed 12:28 Height 5 ft 3 in Weight: 185 lb Weight in Pounds 185.[address]: Ashanti Mejía NP FIO2 (% Oxygen) 21 Assistive device None [...] use of supplemental oxygen at this time. 04/03/251227 Date Dangelo Muller DO CC: Date Dictated: 04/03/251227 Date Transcribed: 04/03/251227 Demolition Expert: Dr. Dangelo Muller DO Signed Normal [facility] Echo Complete W/ Contraston 03-23-2025 Echo Complete W/ Contrast [facility] [address] [place] [address] Echo Complete W/ Contrast 03/23/25 1400 MR#: [id number] Acct: [id number] Name: LILLIE HOLLAND Rep #: [id number] : 1975 49 From: Simon Del Rosario MD Attending Dr: Ashanti Mejía NP-C Status: RE G CLI Ordering Dr: Ashanti Mejía NP ASSOCIATE PROGRAM MANAGER-C Date: Location: [facility] Sex: F C Admitted: Reason For Study [...] Physician: Leonora Saldivar Performed By: Yesenia Canales, PARISA, RVT 03/23/251655 Date Simon Del Rosario MD CC: PREETHI Mejía; LINA Mckeon Date Dictated: 03/23/25 1400 Date Transcribed: 03/23/251655 Demolition Expert: Signed Normal [facility] Pulmonary Visit Reporton Pulmonary Visit Report [facility] Pulmonary Medicine of [address] [place] [address] OFFICE VISIT Date of Service: 03/05/25 MR#: [id number] Acct: [id number] Name: LILLIE HOLLAND Rep #: [id number] : 1975 Provider: PREETHI Mejía Age/Sex: 49/F [place] [facility] Status: Signed Assessment and Plan Assessment and [...] Additional Comments: This note was generated with siXis dictation software. It may contain incorrect words, [...] you recall, she has a greater than 71-rcjw-vgfs smoking history but quit completely back in [...] concerning pulmon (more content not included)... Normal [facility] FOOT COMPLETE RTon FOOT COMPLETE RT [address] [address] Patient: LILLIE HOLLNAD Phone#: : 1975 Age: 49 Gender: F Pt. Type: Out Account: [id number] Location: 052 Ordering: LEONORA SALDIVAR Exam Date: 01/08/2025/12:31 Family Phys: Charge Code: 810918 Physician: Jim Hogg Order #: [id number] Dose#: PROCEDURE: X-RAY FOOT RT COMPLETE MIN 3 VIEWS COMPARISON: [facility], XR, FOOT RT COMPLETE, 08/04/2021, 14:47. [...] Moon MD on 01/08/2025 at 15:42 Normal [facility] Low Dose CT Lung Screeningon 12-11-[address] Lung Screening [facility] Services [address] [place] [id number] Lung Screening MR#: [id number] Acct: [id number] Name: LILLIE HOLLAND Rep #: [id number] : 1975 F 49 From: Mendoza Reyes MD PCP: LINA Mckeon Status: REG CLI Study: Low Dose CT Lung Screening Date of Exam: 12/11 Exam# [id number] Ordering Dr: Ashanti Mejía ASSOCIATE PROGRAM MANAGER ASSOCIATE PROGRAM MANAGER-C PROCEDURE: LOW DOSE CT LUNG SCREENING REASON [...] potentially significant findings (non-lung cancer) Reading Location: [facility] CC: PREETHI Mejía; LINA Mckeon Demolition Expert: Signed Normal [facility] Pulmonary Visit Reporton Pulmonary Visit Report [facility] Pulmonary Medicine [address] [place] [address] OFFICE VISIT Date of Service: 08/28/24 MR#: [id number] Acct: [id number] Name: LILLIE HOLLAND Rep #: [id number] : 1975 Provider: PREETHI Mejía Age/Sex: 48/F [place] [facility] Status: Signed Assessment and Plan Assessment and [...] pulmonary disease Plan Details Follow Up: 12/09/24 ([facility]) HPI 3 M FU Chief Complaint: Test [...] you recall, she has a greater than 80-srkt-ctzj smoking history but quit completely back in [...] Chief Complaint: Shortness of breath on exertion Transitional Care Manager Required: No DME Vendor: n/a Accompanied by: [...] PRN 08/28/24 08/28/24 History PFSH Medical History (Reviewed 08/28/24 @ 14:38 by Ashanti Mejía ASSOCIATE PROGRAM MANAGER, ASSOCIATE PROGRAM MANAGER-C) Acid reflux Abdominal pain Fatigue Anxiety Depression Heart murmur Abnormal ultrasound of breast Abnormal mammogram of left breast Sweets syndrome Tobacco dependence Moderate persistent asthma Bronchitis COPD (chronic obstructive pulmonary disease) Vasculitis Cough Surgical History ... [facility] ) LILLIE HOLLAND ([id number]) 1975 F Date Time Provider Department 07/24/24 12:45 PM LAURITA JAMISON During your visit today, we recorded the following information about you: Blood pressure Weight 120/70 76.2 kg Laurita Jamison APRN.MATE RELIEF 07/24/2024 1:32 PM Signed Lillie Holland is [...] L2 SAB0 IAB0 Ectopic0 Multiple0 Live Births2 Gift Packer History LMP: 01/09/2008, Hysterectomy Age at Menarche: Age at First : Age at Menopause: Gift Packer History Comments: Sexual Activity: Yes; Male Contraception: [...] mg capsule take one tb at bedtime mv-min/iron/folic/calcium/v itK (WOMEN'S MULTIVITAMIN ORAL) Take by mouth once daily. Docusate Sodium 100 mg tab Take by mouth twice daily. acetaminophen (TYLENOL ORAL) Take by mouth every 6 hours as needed. IBUPROFEN ORAL Take by mouth as needed. No current facility-administered medications for this visit. Allergies As of Date: 07/24/2024 Allergen Noted Reaction BACTRIM [SULFAMETHOXAZOLE-TRIMETH*0 03/27/2008 GI Upset Fully Assessed 07/24/2024 REVIEW OF [...] of Date: 07/24/2024 Noted Allergy Reaction BACTRIM (SULFAMETHOXAZOLE-TRIMETH*0 03/27/2008 8 - GI Upset Date Reviewed: 07/24/2024 Reviewed by: Krys Cortes MA - Fully Assessed Reason f (more content not included)... Normal [facility] CBC (INCLUDES DIFF/PLT)on Basophils (Bld) [#/Vol] 0.021 10*3/uL Normal 0-200 [facility] Comment on above: Performed By: #### 6 399, 06393, 3950 #### [facility] [address], [address] [place] [address] Admin Asst: Zelalem Roach MD Basophils/100 WBC (Bld) 0.4 % Normal [facility] Comment on above: Performed By: #### 6 399, 01612, 7600 #### [facility] [place] [address] Admin Asst: Zelalem Roach MD Eosinophils (Bld) [#/Vol] 0.08 10*3/uL Normal 15-500 [facility] Comment on above: Performed By: #### 6 399, 55641, 7600 #### [facility] [address], [address] [place] [address] Admin Asst: Zelalem Roach MD Eosinophils/100 WBC (Bld) 1.5 % Normal [facility] Comment on above: Performed By: #### 6 399, 05690, 1010 #### [facility] [address], [address] [place] [address] Admin Asst: Zelalem Roach MD Erythrocyte distribution width (RBC) [Ratio] 12.7 % Normal 11.0-15.0 [facility] Comment on above: Performed By: #### 6 399, 31277, 0 #### [facility] of [place] [address] Admin Asst: Zelalem Roach MD Hematocrit (Bld) [Volume fraction] 39.2 % Normal 35.0-45.0 [facility] Comment on above: Performed By: #### 6 399, 67509, 0 #### [facility] of [place] [address] Admin Asst: Zelalem Roach MD Hemoglobin (Bld) [Mass/Vol] 12.3 g/dL Normal 11.7-15.5 [facility] Comment on above: Performed By: #### 6 399, , 0 #### [facility] of [place] [address] Admin Asst: Zelalem Roach MD Lymphocytes (Bld) [#/Vol] 1.659 10*3/uL Normal 850-3900 [facility] Comment on above: Performed By: #### 6 399, 72498, 0 #### [facility] of [place] [address] Admin Asst: Zelalem Roach MD Lymphocytes/100 WBC (Bld) 31.3 % Normal [facility] Comment on above: Performed By: #### 6 399, , 0 #### [facility] of [place] [address] Admin Asst: Zelalem Roach MD MCH (RBC) [Entitic mass] 29.1 pg Normal 27.0-33.0 [facility] Comment on above: Performed By: #### 6 399, 89890, 0 #### [facility] of [place] [address] Admin Asst: Zelalem Roach MD MCHC (RBC) [Mass/Vol] 31.4 g/dL Low 32.0-36.[address] [facility] Comment on above: Performed By: #### 6 399, 66741, 7600 #### [facility] of [place] [address] Admin Asst: Zelalem Roach MD MCV (RBC) [Entitic vol] 92.9 fL Normal 80.0-100.0 [facility] Comment on above: Performed By: #### 6 399, 56197, 7600 #### [facility] of [place] [address] Admin Asst: Zelalem Roach MD Monocytes (Bld) [#/Vol] 0.408 10*3/uL Normal 200-950 [facility] Comment on above: Performed By: #### 6 399, 42876, 0 #### [facility] [place] [address] Admin Asst: Zelalem Roach MD Monocytes/100 WBC (Bld) 7.7 % Normal [facility] Comment on above: Performed By: #### 6 399, 93993, 0 #### [facility] of [place] [address] Admin Asst: Zelalem Roach MD Neutrophils (Bld) [#/Vol] 3.132 10*3/uL Normal 0342-4260 [facility] Comment on above: Performed By: #### 6 399, 27887, 7600 #### [facility] of [place] [address] Admin Asst: Zelalem Roach MD Neutrophils/100 WBC (Bld) 59.1 % Normal [facility] Comment on above: Performed By: #### 6 399, 33355, 7600 #### [facility] [place] [address] Admin Asst: Zelalem Roach MD Platelet mean volume (Bld) [Entitic vol] 10.4 fL Normal 7.5-12.5 [facility] Comment on above: Performed By: #### 6 399, 50560, 7600 #### [facility] of [address] [place] [address] Admin Asst: Zelalem Roach MD Platelets (Bld) [#/Vol] 282 10*3/uL Normal 140-400 [facility] Comment on above: Performed By: #### 6 399, 99681, 7600 #### [facility] of [address], [address] [place] [address] Admin Asst: Zelalem Roach MD RBC (Bld) [#/Vol] 4.22 10*6/uL Normal 3.80-5.10 [facility] Comment on above: Performed By: #### 6 399, 08228, 7600 #### [facility] [place] [address] Admin Asst: Zelalem Roach MD WBC (Bld) [#/Vol] 5.3 10*3/uL Normal 3.8-10.8 [facility] Comment on above: Performed By: #### 6 399, 22120, 7600 #### [facility] of [place] [address] Admin Asst: Zelalem Roach MD [facility] 06-24-2024 Albumin [Mass/Vol] 4.3 g/dL Normal 3.6-5.1 [facility] Comment on above: Performed By: #### 6 399, 14304, 7600 #### [facility] of [place] [address] Admin Asst: Zelalem Roach MD Albumin/Globulin [Mass ratio] 1.7 {ratio} Normal 1.0-2.5 [facility] Comment on above: Performed By: #### 6 399, 06888, 7600 #### [facility] [place] [address] Admin Asst: Zelalem Roach MD ALP [Catalytic activity/Vol] 92 U/L Normal 31-125 [facility] Comment on above: Performed By: #### 6 399, 91544, 7600 #### [facility] of [address] [address] Admin Asst: Zelalem Roach MD ALT [Catalytic activity/Vol] 16 U/L Normal 6-29 [facility] Comment on above: Performed By: #### 6 399, 83915, 7600 #### [facility] of [address], [address] [place] [address] Admin Asst: Zelalem Roach MD AST [Catalytic activity/Vol] 15 U/L Normal 10-35 [facility] Comment on above: Performed By: #### 6 399, 21421, 7600 #### [facility] of [address], [address] [place] [address] Admin Asst: Zelalem Roach MD Bilirubin [Mass/Vol] 0.4 mg/dL Normal 0.2-1.2 [facility] Comment on above: Performed By: #### 6 399, 48413, 0 #### [facility] of [address], [address] [place] [address] Admin Asst: Zelalem Roach MD BUN/CREATININE RATIO SEE NOTE: Normal 6-22 [facility] Comment on above: Result Comment: Not Reported: BUN and Creatinine are within reference range. Performed By: #### 6 399, 65905, 0 #### [facility] [place] [address] Admin Asst: Zelalem Roach MD Calcium [Mass/Vol] 9.5 mg/dL Normal 8.6-10.2 [facility] Comment on above: Performed By: #### 6 399, 86950, 7600 #### [facility] [place] [address] Admin Asst: Zelalem Roach MD Chloride [Moles/Vol] 98 mmol/L Normal 98-110 [facility] Comment on above: Performed By: #### 6 399, 15371, 7600 #### [facility] [place] [address] Admin Asst: Zelalem Roach MD CO2 [Moles/Vol] 29 mmol/L Normal 20-32 [facility] Comment on above: Performed By: #### 6 399, 39970, 0 #### [facility] [place] [address] Admin Asst: Zelalem Roach MD Creatinine [Mass/Vol] 0.60 mg/dL Normal 0.50-0.[address] [facility] Comment on above: Performed By: #### 6 399, 19451, 0 #### [facility] [place] [address] Admin Asst: Zelalem Roach MD GFR/1.73 sq M.predicted among non-blacks MDRD (S/P/Bld) [Vol rate/Area] 110 mL/min/{1.73_m2} Normal > OR = 60 [facility] Comment on above: Performed By: #### 6 399, , 0 #### [facility] [place] [address] Admin Asst: Zelalem Roach MD Globulin (S) [Mass/Vol] 2.5 g/dL Normal 1.9-3.7 [facility] Comment on above: Performed By: #### 6 399, 94662, 0 #### [facility] [place] [address] Admin Asst: Zelalem Roach MD Glucose [Mass/Vol] 112 mg/dL High 65-99 [facility] Comment on above: Result Comment: Fasting reference interval For someone without known diabetes, a glucose value between 100 and 125 mg/dL is consistent with prediabetes and should be confirmed with a follow-up test. Performed By: #### 6 399, 86871, 7600 #### [facility] [place] [address] Admin Asst: Zelalem Roach MD Potassium [Moles/Vol] 3.9 mmol/L Normal 3.5-5.[address] [facility] Comment on above: Performed By: #### 6 399, 20169, 0 #### [facility] [address] [place] [address] Admin Asst: Zelalem Roach MD Protein [Mass/Vol] 6.8 g/dL Normal 6.1-8.1 [facility] Comment on above: Performed By: #### 6 399, 87065, 7600 #### [facility] of [address], [address] [place] [address] Admin Asst: Zelalem Roach MD Sodium [Moles/Vol] 136 mmol/L Normal 135-146 [facility] Comment on above: Performed By: #### 6 399, 41458, 7600 #### [facility] of [address], [address] [place] [address] Admin Asst: Zelalem Roach MD Urea nitrogen [Mass/Vol] 13 mg/dL Normal 7-25 [facility] Comment on above: Performed By: #### 6 399, 51512, 7600 #### [facility] of [address], [address] [place] [address] Admin Asst: Zelalem Roach MD FSH [CCL]on 06-24-2024 FSH 20.1 mIU/mL Normal See comment [facility] Comment on above: Result Comment: Refe rence range: Follicular: 3.5-12.5 mIU/mL Ovulation: 4.7-21.5 mIU/mL Luteal: 1.7-7.7 mIU/mL Postmenopausal: 25.8-134.8 mIU/mL [facility] [address] [place] [address] Felix Nowak III, M.D. [id number] Performed By: #### 2 16063 #### [facility],[address] [place] [address] INSULIN [CCL]on 06-24-2024 Insulin 6.5 mU/L Normal 3.0-25.0 [facility] Comment on above: Result Comment: [facility] [address] [place] [address] Felix Nowak III, M.D. [id number] Performed By: #### 2 66073 #### [facility],[address] [place] [address] LIPID PANEL, STANDARDon 06-08 Cholesterol [Mass/Vol] 197 mg/dL Normal <200 [facility] Comment on above: Performed By: #### 6 399, 75814, 7600 #### [facility] [place] [address] Admin Asst: Zelalem Roach MD Cholesterol in HDL [Mass/Vol] 73 mg/dL Normal > OR = 50 [facility] Comment on above: Performed By: #### 6 399, 11693, 7600 #### [facility] [place] [address] Admin Asst: Zelalem Roach MD Cholesterol in LDL [Mass/Vol] 96 mg/dL Normal [facility] Comment on above: Result Comment: Refe rence range: <100 Desirable range <100 mg/dL for primary prevention; <70 mg/dL for patients with CHD or diabetic patients with > or = 2 CHD risk factors. LDL-C is now calculated using the Cesario-Drew calculation, which is a validated novel method providing better accuracy than the Friedewald equation in the estimation of LDL-C. Cesario SS et al. FREDA. 2013;310(19): 4026-0386 (http://education.[employer]/faq/YIR955) Performed By: #### 6 399, 86126, 0 #### [facility] [place] [address] Admin Asst: Zelalem Roach MD Cholesterol.total/Cho lesterol in HDL [Mass ratio] 2.7 {ratio} Normal <5.0 [facility] Comment on above: Performed By: #### 6 399, 84875, 7600 #### [facility] [place] [address] Admin Asst: Zelalem Roach MD NON HDL CHOLESTEROL 124 mg/dL (calc) Normal <130 [facility] Comment on above: Result Comment: For patients with diabetes plus 1 major ASCVD risk factor, treating to a non-HDL-C goal of <100 mg/dL (LDL-C of <70 mg/dL) is considered a therapeutic option. Performed By: #### 6 399, 49400, 7600 #### [facility] [address] , [address] [place] [address] Admin Asst: Zelalem Roach MD Triglyceride [Mass/Vol] 179 mg/dL High <150 [facility] Comment on above: Performed By: #### 6 399, 74004, 7600 #### [facility] [address] , [address] [place] [address] Admin Asst: Zelalem Roach MD [facility] with eGFR 06-23-2024 Potassium [Moles/Vol] 3.9 mmol/L Normal 3.5 - 5.3 mmol/L [facility]. Comment on above: Performed By: #### 2 04028 #### [facility],[address] [place] [address] AGE 48 years Normal [facility] Comment on above: Performed By: #### 2 88173 #### [facility],[address] [place] [address] Albumin [Mass/Vol] 3.4 g/dL Normal 3.4 - 5.0 [facility] Comment on above: Performed By: #### 2 81063 #### [place] [address] Albumin/Globulin [Mass ratio] 0.9 {ratio} Normal 0.9 - 1.6 [facility] Comment on above: Performed By: #### 2 93501 #### [place] [address] ALK PHOS 103 U/L Normal 46 - 116 [facility] Comment on above: Performed By: #### 2 29095 #### [place] [address] ALT [Catalytic activity/Vol] 26 U/L Normal 16 - 63 [facility] Comment on above: Performed By: #### 2 58940 #### [facility],[address] [place] [address]233 Anion gap [Moles/Vol] 11 mmol/L Normal 10 - 20 [facility] Comment on above: Performed By: #### 2 75885 #### [facility],[address] [place] [address] 76116 AST [Catalytic activity/Vol] 17 U/L Normal 13 - 39 [facility] Comment on above: Performed By: #### 2 51198 #### [facility],[address] [place] [address] 15731 B/C RATIO 19 ratio Normal 0 - 30 [facility] Comment on above: Performed By: #### 2 45521 #### [facility],[address] [place] [address] 13220 Bilirubin [Mass/Vol] 0.5 mg/dL Normal 0.2 - 1.0 [facility] Comment on above: Performed By: #### 2 85289 #### [facility],[address] [place] [address] 71048 Calcium [Mass/Vol] 9.6 mg/dL Normal 8.5 - 10.1 [facility] Comment on above: Performed By: #### 2 74440 #### [facility],[address] [place] [address] 97784 Chloride [Moles/Vol] 101 mmol/L Normal 98 - 107 [facility] Comment on above: Performed By: #### 2 69312 #### [facility],[address] [place] [address]24 CMP with eGFR Normal [facility] Comment on above: Result Comment: COMP REHENSIVE METABOLIC PANEL Performed By: #### 2 46996 #### [facility],[address] [place] [address] 66784 CO2 [Moles/Vol] 30.9 mmol/L Normal 21.0 - 32.0 [facility] Comment on above: Performed By: #### 2 96979 #### [address] [address] Creatinine [Mass/Vol] 0.58 mg/dL Normal 0.55 - 1.02 [facility] Comment on above: Performed By: #### 2 68008 #### [place] [id number] GFR/1.73 sq M.predicted among non-blacks MDRD (S/P/Bld) [Vol rate/Area] mL/min/{1.73_m2} Normal 60 - 999 [facility] Comment on above: Performed By: #### 2 91263 #### [place] [id number] Result Comment: ACCO RDING TO THE NATIONAL KIDNEY DISEASE EDUCATION PROGRAM(NKDE), A NORMAL eGFR IS A VALUE GREATER THAN OR EQUAL TO 60 ML/MIN/1.73 SQ METERS. CHRONIC KIDNEY DISEASE: <60mL/MIN/1.73 SQ METERS KIDNEY FAILURE: <15mL/MIN/1.73 SQ METERS THIS TEST SHOULD ONLY BE USED FOR PATIENTS 18 YEARS OF AGE AND OLDER. Globulin (S) [Mass/Vol] 3.6 g/dL Normal 1.5 - 3.8 [facility] Comment on above: Performed By: #### 2 93129 #### [address] [address] Glucose [Mass/Vol] 96 mg/dL Normal 74 - 106 [facility] Comment on above: Performed By: #### 2 67056 #### [address] [address] Protein [Mass/Vol] 7.0 g/dL Normal 6.4 - 8.2 [facility] Comment on above: Performed By: #### 2 80062 #### [place] [id number] Sodium [Moles/Vol] 139 mmol/L Normal 136 - 145 [facility] Comment on above: Performed By: #### 2 02496 #### [facility],[address] [place] [address] 10994 Urea nitrogen [Mass/Vol] 11 mg/dL Normal 7 - 18 [facility] Comment on above: Performed By: #### 2 03352 #### [facility],[address] [place] [address] FSH SerPl-aCncon 06-23-2024 Follitropin Qn 20.1 m[IU]/mL Normal See comment [facility] Comment on above: Order Comment: Speci men Type: BLOOD SPECIMEN Ordering Facility: [facility] Address: [address] [place] [address] Result Comment: Refe rence range: Follicular: 3.5-12.5 mIU/mL Ovulation: 4.7-21.5 mIU/mL Luteal: 1.7-7.7 mIU/mL Postmenopausal: 25.8-134.8 mIU/mL Performed By: #### 1 5067-2, 02198-4 #### [facility] CLIA [id number] [address] [place] [address] [place] HEMOGLOBIN A1C (POM)on 06-23 Glucose [Mass/Vol] 88.2 mg/dL High 0.0 - 0.0 [facility] Comment on above: Result Comment: BLDo HEMOGLOBIN A1C REFERENCE RANGESBLDo Suggested Diagnosis HbA1c(%) HbA1C (mmol/mol Diabetic >/=6.5 >/=48 Prediabetes 5.7 - 6.4 39 - 47 Normal <5.7 <39 Performed By: #### 2 52555 #### [facility],[address] [place] [address] 20060 HbA1c (Bld) [Mass fraction] 4.7 % Normal 0.0 - 6.5 [facility] Comment on above: Performed By: #### 2 19024 #### [facility],[address] [place], [place] [id number] Insulin SerPl-aCncon 024 Insulin Qn 6.5 u[IU]/mL Normal 3.0-25.0 [facility] Comment on above: Order Comment: Speci men Type: BLOOD SPECIMEN Ordering Facility: [facility] Address: [address] [place] [address] Performed By: #### 1 5067-2, 41893-3 #### [facility] CLIA [id number] [address] [place] [address] [place] LIPID PROFILEon 06-23-2024 Cholesterol [Mass/Vol] 196 mg/dL Normal 0 - 240 [facility] Comment on above: Performed By: #### 2 14120 #### [facility],[address] [place] [address]805 Cholesterol in HDL [Mass/Vol] 72 mg/dL High 40 - 60 [facility] Comment on above: Performed By: #### 2 38139 #### [facility],[address] [place] [address] 22094 Cholesterol in LDL [Mass/Vol] 98 mg/dL Normal 0 - 129 [facility] Comment on above: Performed By: #### 2 67122 #### [facility],[address] [place] [address]67 Cholesterol.total/Cho lesterol in HDL [Mass ratio] 2.7 {ratio} Normal 0.0 - 5.0 [facility] Comment on above: Performed By: #### 2 58112 #### [facility],[address] [place] [address] 57520 Lipid 1996 panel Normal [facility] Comment on above: Result Comment: LIPI D PROFILE Performed By: #### 2 77687 #### [facility],[address] [place] [address]90 Triglyceride [Mass/Vol] 131 mg/dL Normal 0 - 150 [facility] Comment on above: Performed By: #### 2 38315 #### [facility],[address] [place] [address] Laboratory - Chemistry and C hemistry - challengeon 06-23-2024 Albumin [Mass/Vol] 4.3 g/dL Normal 3.6 - 5.1 g/dL [facility] [employer] Albumin/Globulin [Mass ratio] 1.7 {ratio} Normal 1.0 - 2.5 [facility] [employer] ALP [Catalytic activity/Vol] 92 U/L Normal 31 - 125 U/L [facility] [employer] ALT [Catalytic activity/Vol] 16 U/L Normal 6 - 29 U/L [place] [employer] AST [Catalytic activity/Vol] 15 U/L Normal 10 - 35 U/L [place] [employer] [facility] [employer] Bilirubin [Mass/Vol] 0.4 mg/dL Normal 0.2 - 1 .2 mg/dL [place] [employer] Calcium [Mass/Vol] 9.5 mg/dL Normal 8.6 - 10. 2 mg/dL [place] [employer] Chloride [Moles/Vol] 98 mmol/L Normal 98 - 11 0 mmol/L [place] [employer] Cholesterol [Mass/Vol] 197 mg/dL Normal [employer] Cholesterol in HDL [Mass/Vol] 73 mg/dL Normal [employer] Cholesterol in LDL [Mass/Vol] 96 mg/dL Normal [employer] CO2 [Moles/Vol] 29 mmol/L Normal 20 - 32 mmol/L [place] [employer] Creatinine [Mass/Vol] 0.60 mg/dL Normal 0.50 - 0.99 mg/dL [place] [employer] GFR/1.73 sq M.predicted among non-blacks MDRD (S/P/Bld) [Vol rate/Area] 110 mL/min/{1.73_m2} Normal [facility]; [facility], [facility] Glucose [Mass/Vol] 112 mg/dL Abnormal 65 - 99 mg/dL [facility], [facility] Protein [Mass/Vol] 6.8 g/dL Normal 6.1 - 8.1 g/dL [facility]; [facility], [facility] Sodium [Moles/Vol] 136 mmol/L Normal 135 - 146 mmol/L [facility]; [facility], [facility] Triglyceride [Mass/Vol] 179 mg/dL Abnormal [facility]; [facility], [facility] Urea nitrogen [Mass/Vol] 13 mg/dL Normal 7 - 25 mg/dL [facility]; [facility], [facility] Laboratory - Hematology and Cell countson 06-23-2024 Basophils (Bld) [#/Vol] 0.021 10*3/uL Normal 0 - 200 {cells/uL} [facility]; [facility] Basophils/100 WBC (Bld) 0.4 % Normal [facility]; [facility] Eosinophils (Bld) [#/Vol] 0.08 10*3/uL Normal 15 - 500 {cells/uL} [facility].; [facility], [facility] Eosinophils/100 WBC (Bld) 1.5 % Normal [facility]; [facility] Erythrocyte distribution width (RBC) [Ratio] 12.7 % Normal 11.0 - 15.0 % [facility], [facility] Hematocrit (Bld) [Volume fraction] 39.2 % Normal 35.0 - 45.0 % [facility].; [facility], [facility] Hemoglobin (Bld) [Mass/Vol] 12.3 g/dL Normal 11.7 - 15.5 g/dL [facility], [facility].; [facility], [facility] Lymphocytes (Bld) [#/Vol] 1.659 10*3/uL Normal 850 - 3900 {cells/uL} [facility] [employer]. Lymphocytes/100 WBC (Bld) 31.3 % Normal [facility].; [place] [employer]. MCH (RBC) [Entitic mass] 29.1 pg Normal 27.0 - 33.0 pg [facility] [place] [employer] MCHC (RBC) [Mass/Vol] 31.4 g/dL Abnormal 32.0 - 36.0 g/dL [place] [employer] [facility].; [place] [employer] MCV (RBC) [Entitic vol] 92.9 fL Normal 80.0 - 100.0 fL [place] [employer] [place] [employer]. Monocytes (Bld) [#/Vol] 0.408 10*3/uL Normal 200 - 950 {cells/uL} [place] [employer] [place] [employer] Monocytes/100 WBC (Bld) 7.7 % Normal [place] [employer] [facility].; [place] [employer] Neutrophils (Bld) [#/Vol] 3.132 10*3/uL Normal 1500 - 7800 {cells/uL} [place] [employer], [employer]. Neutrophils/100 WBC (Bld) 59.1 % Normal [place] [employer] [place] [employer] Platelet mean volume (Bld) [Entitic vol] 10.4 fL Normal 7.5 - 12.5 fL [place] [employer], [employer]. Platelets (Bld) [#/Vol] 282 10*3/uL Normal 140 - 400 [place] [employer] RBC (Bld) [#/Vol] 4.22 10*6/uL Normal 3.80 - 5.10 {Million/u L} [employer] WBC (Bld) [#/Vol] 5.3 10*3/uL Normal 3.8 - 10.8 [place] [employer], [employer]. No Panel Informationon 06-23 BUN/CREATININE RATIO SEE NOTE: Normal 6 - 22 [facility] [employer] CHOL/HDLC RATIO 2.7 Normal [place] [employer] [facility].; [employer] [facility]. GLOBULIN 2.5 Normal 1.9 - 3.7 [place] [employer] [facility]. NON HDL CHOLESTEROL 124 Normal [facility] [employer] [facility].; [employer]. TSHon 06-23-2024 TSH Qn 0.60 m[IU]/L Normal 0.35 - 3.74 [facility] Comment on above: Performed By: #### 2 72811 #### [place] [id number] VITAMIN D, 25 HYDROXYon 06-08 VitD 38.30 [...] D2 Not Established Performed By: #### 2 42945 #### [facility],[address] [place] [address] [facility] 06-15-2024 CNPN Telephone (ALVARADOGYWM) LILLIE HOLLAND ([id number]) 1975 F Date Time Provider Department 06/15/24 LAURITA JAMISON During your visit today, we recorded the following information about you: Laurita Jamison APRN.CNP 06/15/2024 3:33 PM Signed Can we contact [facility] to see if they have any labs results since 05/29. Pt was to get labs done there and I haven't receive anything. Laurita Jamison APRN.Leonor Bryant RN 06/15/2024 3:48 PM Signed Request faxed. VICK Cruz Jennifer, RN 06/16/2024 10:02 AM Signed No lab results found per [facility]. Note in patient's chart states to call after 4:00 PM. Leonor Hernandez RN Allergies As of Date: 06/15/2024 Noted Allergy Reaction BACTRIM (SULFAMETHOXAZOLE-TRIMETH*0 03/27/2008 8 - GI Upset Date Reviewed: 05/29/2024 [...] capsule take one tb at bedtime - mv-min/iron/folic/calcium/v itK (WOMEN'S MULTIVITAMIN ORAL) Take by mouth once daily. - Docusate Sodium 100 mg tab Take by mouth twice daily. - acetaminophen (TYLENOL ORAL) Take by mouth every 6 hours as needed. - IBUPROFEN ORAL Take by mouth as needed. 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] 03/27/2024 Chronic obstructive pulmonary disease (HCC) [J4*09/15/2023 Gastroesophageal reflux disease [K21.9] 03/27/2024 Heart murmur [R01.1] 03/27/2024 Moderate persistent asthma [J45.40] 03/27/2024 Encounter Status:Closed by LAURITA JAMISON on 06/22/24 [facility] CNOVon 05-29-2024 CNOV Office Visit (OBGYWM ) LILLIE HOLLAND ([id number]) 1975 F Date Time Provider Department 05/29/24 2:00 PM LAURITA JAMISON OBGYWM During your visit today, we recorded the following information about you: Blood pressure Weight 122/70 74.4 kg Laurita Jamison APRN.MATE RELIEF 05/29/2024 3:01 PM Signed Lillie Holland is a 48 year old female who presents for medication follow up HPI: she has not notice a difference with the estrace decreasing to hot flashes. She also is concerned about the unexplained weight gain, fatigue, and urinary urgency. OB History T2 L2 SAB0 IAB0 Ectopic0 Multiple0 Live Births2 Gift Packer History LMP: 01/09/2008, Hysterectomy Age at Menarche: Age at First : Age at Menopause: Gift Packer History Comments: Sexual Activity: Yes; Male Contraception: [...] mg capsule take one tb at bedtime mv-min/iron/folic/calcium/v itK (WOMEN'S MULTIVITAMIN ORAL) Take by mouth once daily. Docusate Sodium 100 mg tab Take by mouth twice daily. acetaminophen (TYLENOL ORAL) Take by mouth every 6 hours as needed. IBUPROFEN ORAL Take by mouth as needed. No current facility-administered medications for this visit. Allergies As of Date: 05/29/2024 Allergen Noted Reaction BACTRIM [SULFAMETHOXAZOLE-TRIMETH*0 03/27/2008 GI Upset Fully Assessed 05/29/2024 REVIEW OF [...] D 25 HYDROXY Having labs done at [facility] Will notify patient of test results. Laurita Jamison, FELICITAS.MATE RELIEF Medical Decision Making: Problems: Moderate: New problem with uncertain prognosis Data: Unique test(s) ordered: 3+ Risk: Moderate: Drug management Medical Decision Making Level: 4 - Moderate . Allergies As of Date: 05/29/2024 Noted Allergy Reaction BACTRIM (SULFAMETHOXAZOLE-TRIMETH*0 03/27/2008 8 - GI Upset Date Reviewed: 05/29/2024 Reviewed by: Angie Green LPN - Fully Assessed Reason for Visit: Follow Up [171] Weight Management [3933] Primary Visit Diagnosis:Unintended weight gain [ (more content not included)... Normal [facility] 3D MAMM BILAT SCREENon 05-22 3D MAMM BILAT SCREEN [place] [id number] Patient: LILLIE HOLLAND Phone#: : [phone] Age: 48 Gender: F Pt. Type: Out Account: [id number] Location: 052 Ordering: LEONORA SALDIVAR Exam Date: 05/22/2024/14:24 Family Phys: Charge Code: 195801 Physician: [place] Order #: [id number] Dose#: PROCEDURE: BILATERAL SCREENING BREAST TOMOSYNTHESIS MAMMOGRAM WITH CAD COMPARISON: [facility], BILAT SCREENING, 12/09/2018, 9:25. [facility], 3D BILAT SCREEN, 05/21/2023, 14:15. INDICATIONS: SCREENING [...] Michelle Boston MD on 05/22/2024 at 16:44 Normal [facility] CNOVon 03-27-2024 CNOV Office Visit (OBGYWM ) LILLIE HOLLAND ([id number]) 1975 F Date Time Provider Department 03/27/24 10:30 AM LAURITA JAMISON OBGYWLonnie During your visit today, we recorded the following information about you: Blood pressure Weight Height 138/80 71 kg 1.6 m Laurita Jamison, FELICITAS.MATE RELIEF 03/27/2024 11:43 AM Signed Advance Scout offered: Patient declinesDmtiriy Moreira is a 48 year old who presents for an annual gynecologic exam with complaints, menopausal symptoms and bladder issues . 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 Gift Packer History LMP: 01/09/2008, Hysterectomy Age at Menarche: Age at First : Age at Menopause: Gift Packer History Comments: Sexual Activity: Yes; Male Contraception: [...] external genitalia normal, normal Bartholin's glands, urethra, [place]'s glands, no vulvar lesions, good vaginal support, [...] V76.12, ICD10: Z12.31 - order give for [facility] Laurita Jamison APRN.CNP Allergies As of Date: 03/27/2024 Noted Allergy Reaction BACTRIM (SULFAMETHOXAZOLE-TRIMETH*0 03/27/2008 8 - GI Upset Date Reviewed: 03/27/2024 [...] 20 m (more content not included)... Normal [facility] ANAon 07-08-2023 ANTI-NUCLEAR ANTIBODY (LOLITA) <1:40 Normal <1:40 [facility] Comment on above: Performed By: #### 4 [id number], [id number] #### [address] C-REACTIVE PROTEIN (INFLAMMA TORY)on 07-08-2023 CRP [Mass/Vol] mg/L Normal <=9.9 [facility] Comment on above: Performed By: #### 4 [id number], [id number], 58675065, 60030433, [id number], 60639985, [id number] #### [address] CBC AND DIFFERENTIALon 07-08 ABSOLUTE BASOPHIL 0.0 x10*3/uL Normal 0.0-0.1 [facility] Comment on above: Performed By: #### 4 [id number], [id number] #### [address] ABSOLUTE EOSINOPHIL 0.1 x10*3/uL Normal 0.1-0.3 [facility] Comment on above: Performed By: #### 4 8875647, [id number] #### [address] ABSOLUTE IMMATURE GRANULOCYTES 0.0 x10*3/uL Normal 0.0-0.1 [facility] Comment on above: Performed By: #### 4 1391040, [id number] #### [address] ABSOLUTE LYMPH 1.5 x10*3/uL Normal 1.2-3.3 [facility] Comment on above: Performed By: #### 4 8412179, [id number] #### [address] ABSOLUTE MONO 0.4 x10*3/uL Normal 0.2-0.6 [facility] Comment on above: Performed By: #### 4 4639239, [id number] #### [address] ABSOLUTE NEUTROPHIL 5.1 x10*3/uL Normal 2.4-6.6 [facility] Comment on above: Performed By: #### 4 4877275, [id number] #### [address] Basophils/100 WBC (Bld) 0.3 % Normal [facility] Comment on above: Performed By: #### 4 [id number], [id number] #### [address] Eosinophils/100 WBC (Bld) 1.3 % Normal [facility] Comment on above: Performed By: #### 4 9225919, [id number] #### [address] Erythrocyte distribution width (RBC) [Ratio] 12.3 % Normal 11.5-14.5 [facility] Comment on above: Performed By: #### 4 8016357, [id number] #### [address] Hematocrit (Bld) [Volume fraction] 42.4 % Normal 33.6-46.8 [facility] Comment on above: Performed By: #### 4 1359306, [id number] #### [address] Hemoglobin (Bld) [Mass/Vol] 13.6 g/dL Normal 11.7-15.8 [facility] Comment on above: Performed By: #### 4 4202577, [id number] #### [address] Immature granulocytes/100 WBC (Bld) 0.3 % Normal [facility] Comment on above: Performed By: #### 4 [id number], [id number] #### [address] Lymphocytes/100 WBC (Bld) 21.1 % Normal [facility] Comment on above: Performed By: #### 4 4447316, [id number] #### [address] MCH (RBC) [Entitic mass] 29.3 pg Normal 27.5-32.3 [facility] Comment on above: Performed By: #### 4 6246230, [id number] #### [address] MCHC (RBC) [Mass/Vol] 32.1 g/dL Normal 30.7-35.5 [facility] Comment on above: Performed By: #### 4 7550058, [id number] #### [address] MCV (RBC) [Entitic vol] 91.4 fL Normal 80.2-99 [facility] Comment on above: Performed By: #### 4 6829915, 15981052 #### [address] Monocytes/100 WBC (Bld) 5.7 % Normal [facility] Comment on above: Performed By: #### 4 2341172, [id number] #### [address] Neutrophils/100 WBC (Bld) 71.3 % Normal [facility] Comment on above: Performed By: #### 4 8355064, [id number] #### [address] NUCLEATED RED BLOOD CELLS AUTO 0.0 % Normal 0.0-1.0 [facility] Comment on above: Performed By: #### 4 1402161, [id number] #### [address] PLATELET COUNT 224 x10*3/uL Normal 150-400 [facility] Comment on above: Performed By: #### 4 1341078, [id number] #### [address] RED BLOOD CELL COUNT 4.64 x10*6/uL Normal 3.60-5.20 [facility] Comment on above: Performed By: #### 4 1550385, [id number] #### [address] WHITE BLOOD CELLS 7.2 x10*3/uL Normal 4.3-10.3 [facility] Comment on above: Performed By: #### 4 4683559, [id number] #### [address] CCP ANTIBODIES IGG/IGAon CCP IGG/IGA ABS 5 units Normal 0-19 [facility] Comment on above: Order Comment: Perfo rmed at: 01 - [facility] [address] [id number] Parachute Mender: Martin Fam PhD, Phone: [phone] Result Comment: Nega tive <20 Weak positive 20 - 39 Moderate positive 40 - 59 Strong positive >59 Performed By: #### 4 [id number] #### [facility] CKon 07-08-2023 CK [Catalytic activity/Vol] 39 U/L Normal 0-164 [facility] Comment on above: Performed By: #### 4 3905524, [id number], 90183876, 69250988, [id number], 25187600, [id number] #### [address] CREATININE, SERUMon 07-08-20 Creatinine [Mass/Vol] 0.59 mg/dL Normal 0.52-1.04 [facility] Comment on above: Performed By: #### 4 6093359, 23225543, 64140527, 46134603, 88996611, 39436917, 04846521 #### [address] GLOMERULAR FILTRATION RATE ML/MIN/1.73 SQ M.PREDICTED >90.0 Normal >=60.0 [facility] Comment on above: Result Comment: eGFR calculation [...] Kidney Int Suppl.2013;3:1-150 Performed By: #### 4 7349931, 63194418, 63851882, 22500923, 51775006, 55947759, [id number] #### [address] RHEUMATOID FACTORon 07-08-20 23 RHEUMATOID FACTOR <8.6 Normal <=12.0 [facility] Comment on above: Performed By: #### 4 0486650, 19551277, 96380780, 14531259, [id number], [id number], [id number] #### [address] SEDIMENTATION RATEon 023 SED RATE 5 mm/hr Normal 0-20 [facility] Comment on above: Performed By: #### [id number] #### [address] TSHon 07-08-2023 TSH 1.310 uIU/mL Normal 0.465-4.68 0 [facility] Comment on above: Performed By: #### [id number] #### [address] VITAMIN B12on 07-08-2023 Cobalamin (Vitamin B12) [Mass/Vol] 612 pg/mL Normal 239-931 [facility] Comment on above: Performed By: #### [id number] #### [address] VITAMIN D 25 HYDROXYon 07-08 VITAMIN D 25 HYDROXY 23.6 ng/mL Normal [facility] Comment on above: Result Comment: Refe rence Range: Deficiency: <20 ng/mL Insufficiency: 21-29 ng/mL Optimal Level: >=30 ng/mL Possible Toxicity: >80 ng/mL 80 ng/mL is the lowest reported level associated with toxicity in patients without primary hyperthyroidism who have normal renal function. Performed By: #### [id number] #### [place] [id number] Laboratory - Chemistry and C hemistry - challengeon 06-11-2023 Natriuretic peptide B (Bld) [Mass/Vol] 43 pg/mL Normal [facility].; [facility]. Laboratory - Chemistry and C hemistry - challengeon 05-20-2023 Albumin [Mass/Vol] 4.6 g/dL Normal 3.6 - 5.1 g/dL [facility].; [facility]. Albumin/Globulin [Mass ratio] 1.8 {ratio} Normal 1.0 - 2.5 [facility].; [facility]. ALP [Catalytic activity/Vol] 111 U/L Normal 31 - 125 U/L [facility].; [facility]. ALT [Catalytic activity/Vol] 13 U/L Normal 6 - 29 U/L [facility].; [facility]. AST [Catalytic activity/Vol] 14 U/L Normal 10 - 35 U/L [facility].; [place] [employer] [facility], [facility]. Bilirubin [Mass/Vol] 0.5 mg/dL Normal 0.2 - 1 .2 mg/dL [facility].; [place] [employer] [facility], [facility]. Calcium [Mass/Vol] 9.5 mg/dL Normal 8.6 - 10. 2 mg/dL [facility].; [facility]. Chloride [Moles/Vol] 104 mmol/L Normal 98 - 11 0 mmol/L [facility].; [place] [employer] [facility], [facility]. Cholesterol [Mass/Vol] 236 mg/dL Abnormal [facility].; [facility]. Cholesterol in HDL [Mass/Vol] 63 mg/dL Normal [facility].; [facility]. Cholesterol in LDL [Mass/Vol] 131 mg/dL Abnormal [facility].; [facility]. CO2 [Moles/Vol] 26 mmol/L Normal 20 - 32 mmol/L [place] [email or web address] [facility].; [employer]. Creatinine [Mass/Vol] 0.53 mg/dL Normal 0.50 - 0.99 mg/dL [place] [employer].; [employer], [employer]. GFR/1.73 sq M.predicted among non-blacks MDRD (S/P/Bld) [Vol rate/Area] 114 mL/min/{1.73_m2} Normal [place] [employer].; [employer]. Glucose [Mass/Vol] 93 mg/dL Normal 65 - 99 mg/dL [place] [employer].; [employer]. Potassium [Moles/Vol] 4.2 mmol/L Normal 3.5 - 5.3 mmol/L [place] [employer].; [employer]. Protein [Mass/Vol] 7.1 g/dL Normal 6.1 - 8.1 g/dL [place] [employer].; [employer]. Sodium [Moles/Vol] 138 mmol/L Normal 135 - 146 mmol/L [place] [employer].; [employer]. Triglyceride [Mass/Vol] 294 mg/dL Abnormal [employer].; [employer]. Urea nitrogen [Mass/Vol] 16 mg/dL Normal 7 - 25 mg/dL [employer].; [employer]. No Panel Informationon 05-20 BUN/CREATININE RATIO NOT APPLICABLE Normal 6 - 22 [place] [employer].; [employer]. CHOL/HDLC RATIO 3.7 Normal [employer].; [employer], [employer]. GLOBULIN 2.5 Normal 1.9 - 3.7 [employer].; [employer], [employer]. NON HDL CHOLESTEROL 173 Abnormal [facility] [employer].; [employer], [employer]. Laboratoryon 06-19-2019 A. alternata IgE RAST class (S) 0 Normal [employer].; [employer]. Laboratory - Allergyon 06-19 A. alternata IgE Qn (S) <0.10 Normal [employer].; [facility] [employer] A. fumigatus IgE Qn (S) <0.10 Normal [facility].; [facility]. A. fumigatus IgE RAST class (S) 0 Normal [facility].; [facility]. Mexican house dust mite IgE Qn (S) <0.10 Normal [facility] Mexican house dust mite IgE RAST class (S) 0 Normal [facility].; [facility]. [place] grass IgE Qn (S) <0.10 Normal [facility].; [facility]. [place] grass IgE RAST class (S) 0 Normal [facility].; [facility]. Boxelder IgE Qn (S) <0.10 Normal [facility], [facility].; [facility]. Boxelder IgE RAST class (S) 0 Normal [facility].; [facility]. C. herbarum IgE Qn (S) <0.10 Normal [facility].; [facility]. C. herbarum IgE RAST class (S) 0 Normal [facility].; [facility]. [place] Pollen IgE Qn (S) <0.10 Normal [facility].; [facility]. [place] Pollen IgE RAST class (S) 0 Normal [facility].; [facility]. Cat dander IgE Qn (S) <0.10 Normal [facility]. Cat dander IgE RAST class (S) 0 Normal [facility].; [facility]. Cockroach IgE Qn (S) <0.10 Normal [facility], [facility].; [facility]. Cockroach IgE RAST class (S) 0 Normal [facility].; [facility]. Common Pigweed IgE Qn (S) <0.10 Normal [facility].; [facility]. Common Pigweed IgE RAST class (S) 0 Normal [facility] Common Ragweed IgE Qn (S) <0.10 Normal [facility] Common Ragweed IgE RAST class (S) 0 Normal [facility], [facility] Marblehead IgE Qn (S) <0.10 Normal [facility], [facility].; [facility] [place] IgE RAST class (S) 0 Normal [facility] Dog dander IgE Qn (S) <0.10 Normal [facility], [facility].; [facility] Dog dander IgE RAST class (S) 0 Normal [facility] house dust mite IgE Qn (S) <0.10 Normal [facility] house dust mite IgE RAST class (S) 0 Normal [facility] [place] IgE Qn (S) <0.10 Normal [facility] [place] IgE RAST class (S) 0 Normal [facility] Mountain Juniper IgE Qn (S) <0.10 Normal [facility] [place] Juniper IgE RAST class (S) 0 Normal [facility] Mouse urine proteins IgE Qn (S) <0.10 Normal [facility] Mouse urine proteins IgE RAST class (S) 0 Normal [facility] P. notatum IgE Qn (S) <0.10 Normal [facility], [facility].; [facility] P. notatum IgE RAST class (S) 0 Normal [facility] Pecan or [place] Tree IgE Qn (S) <0.10 Normal [facility] Pecan or [place] Tree IgE RAST class (S) 0 Normal [facility] Saltwort IgE Qn (S) <0.10 Normal [facility], [facility].; [facility]. Saltwort IgE RAST class (S) 0 Normal [facility].; [facility] Sheep [place] IgE Qn (S) <0.10 Normal [facility].; [facility] Sheep [place] IgE RAST class (S) 0 Normal [facility].; [facility] Silver Birch IgE Qn (S) <0.10 Normal [facility].; [facility]. Silver Birch IgE RAST class (S) 0 Normal [facility].; [facility] En IgE Qn (S) <0.10 Normal [facility].; [facility]. En IgE RAST class (S) 0 Normal [facility].; [facility] [place] IgE Qn (S) <0.10 Normal [facility], [facility].; [facility] [place] IgE RAST class (S) 0 Normal [facility].; [facility] White Elm IgE Qn (S) <0.10 Normal [facility], [facility].; [facility] [place] IgE RAST class (S) 0 Normal [facility].; [facility] White mulberry IgE Qn (S) <0.10 Normal [facility].; [facility] White mulberry IgE RAST class (S) 0 Normal [facility].; [facility] Brilliant IgE Qn (S) <0.10 Normal [facility], [facility].; [facility] Brilliant IgE RAST class (S) 0 Normal [facility], [facility] [place] [employer] [facility], Inc[facility] Laboratory - Chemistry and C hemistry - challengeon 06-19-2019 IgE Qn 17 {KU/L} Normal [facility].; [facility] Laboratory - Chemistry and C hemistry - challengeon 11-29-2018 Albumin [Mass/Vol] 4.2 g/dL Normal 3.6 - 5.1 g/dL [facility].; [place] [employer] [facility] Albumin/Globulin [Mass ratio] 1.9 {ratio} Normal 1.0 - 2.5 [facility].; [place] [employer]. ALP [Catalytic activity/Vol] 101 U/L Normal 33 - 115 U/L [facility].; [place] [employer]. ALT [Catalytic activity/Vol] 18 U/L Normal 6 - 29 U/L [facility] [place] [employer]. AST [Catalytic activity/Vol] 15 U/L Normal 10 - 30 U/L [facility].; [place] [employer]. Bilirubin [Mass/Vol] 0.3 mg/dL Normal 0.2 - 1 .2 mg/dL [place] [employer] [facility].; [employer]. Calcium [Mass/Vol] 9.0 mg/dL Normal 8.6 - 10. 2 mg/dL [facility].; [employer]. Carcinoembryonic Ag [Mass/Vol] 0.9 ng/mL Normal 0.0 - 2.4 ng/mL [facility].; [employer]. Chloride [Moles/Vol] 105 mmol/L Normal 98 - 11 0 mmol/L [facility].; [place] [employer]. CO2 [Moles/Vol] 30 mmol/L Normal 20 - 32 mmol/L [place] [employer] [facility].; [employer]. Creatinine [Mass/Vol] 1.02 mg/dL Normal 0.50 - 1.10 mg/dL [place] [employer] [facility].; [employer]. GFR/1.73 sq M.predicted among blacks MDRD (S/P/Bld) [Vol rate/Area] 77 {ML/MIN/1.73M2} Normal [facility].; [place] [employer] GFR/1.73 sq M.predicted MDRD (S/P/Bld) [Vol rate/Area] 67 {ML/MIN/1.73M2} Normal [facility].; [employer], [employer]. Globulin (S) [Mass/Vol] 2.2 g/dL Normal 1.9 - 3.7 g/dL [facility].; [place] [employer] Glucose [Mass/Vol] 97 mg/dL Normal 65 - 99 mg/dL [facility].; [place] [employer], [facility]. Potassium [Moles/Vol] 4.3 mmol/L Normal 3.5 - 5.3 mmol/L [facility].; [place] [employer], [employer]. Protein [Mass/Vol] 6.4 g/dL Normal 6.1 - 8.1 g/dL [facility].; [place] [employer], [employer]. Sodium [Moles/Vol] 143 mmol/L Normal 135 - 146 mmol/L [facility].; [place] [employer], [employer]. Urea nitrogen [Mass/Vol] 14 mg/dL Normal 7 - 25 mg/dL [place] [email or web address] [facility].; [employer], [employer]. Urea nitrogen/Creatinine [Mass ratio] 13.6 mg/mg Normal 6 - 22 [facility] [employer].; [employer]. Laboratory - Hematology and Cell countson 11-29-2018 Basophils (Bld) [#/Vol] 10 {Cells}/uL Normal 0 - 200 {Cells}/uL [facility] [employer] [facility].; [employer], [employer]. Basophils/100 WBC (Bld) 0 % Normal 0 - 1 % [facility] [employer].; [place] [employer], [employer]. Eosinophils (Bld) [#/Vol] 110 {Cells}/uL Normal 15 - 500 {Cells}/uL [place] [employer].; [employer], [employer]. Eosinophils/100 WBC (Bld) 2 % Normal 0 - 4 % [place] [employer].; [employer], [employer]. Erythrocyte distribution width (RBC) [Ratio] 13.4 % Normal 11.0 - 15.0 % [place] [employer], [employer].; [employer] ESR (Bld) [Velocity] 9 mm/h Normal 0 - 20 mm/h [facility] [employer], [facility]. Hematocrit (Bld) [Volume fraction] 40.1 % Normal 35.0 - 45.0 % [facility].; [facility], [facility] Hemoglobin (Bld) [Mass/Vol] 13.2 g/dL Normal 11.7 - 15.5 g/dL [facility].; [facility]. Lymphocytes (Bld) [#/Vol] 1380 {Cells}/uL Normal 850 - 3900 {Cells}/uL [facility].; [facility]. Lymphocytes/100 WBC (Bld) 24 % Normal 12 - 47 % [facility].; [facility]. MCH (RBC) [Entitic mass] 29.6 pg Normal 27.0 - 33.0 PG [facility].; [facility]. MCHC (RBC) [Mass/Vol] 33.0 g/dL Normal 32.0 - 36.0 g/dL [facility].; [place] [employer] [facility], [facility]. MCV (RBC) [Entitic vol] 89.7 fL Normal 80.0 - 100.0 fL [facility].; [place] [employer] [facility], [facility]. Monocytes (Bld) [#/Vol] 390 {Cells}/uL Normal 200 - 950 {Cells}/uL [facility].; [facility]. Monocytes/100 WBC (Bld) 7 % Normal 4 - 12 % [facility].; [place] [employer] [facility], [facility]. Neutrophils (Bld) [#/Vol] 3990 {Cells}/uL Normal 1500 - 7800 {Cells}/uL [facility].; [place] [employer], [facility]. Neutrophils/100 WBC (Bld) 67 % Normal 40 - 75 % [facility].; [place] [employer], [facility]. Platelet mean volume (Bld) [Entitic vol] 9.8 fL Normal 7.5 - 12.5 fL [facility].; [place] [employer], [facility]. Platelets (Bld) [#/Vol] 261 10*3/uL Normal 140 - 400 10*3/uL [place] [email or web address] [facility].; [place] [employer], [facility]. RBC (Bld) [#/Vol] 4.47 10*6/uL Normal 3.80 - 5.10 10*6/uL [place] [email or web address] [facility].; [email or web address] [facility] WBC (Bld) [#/Vol] 5.9 10*3/uL Normal 3.8 - 10.8 10*3/uL [facility] [employer] [facility].; [employer] Laboratory - Hematology and Cell countson 05-27-2018 Basophils (Bld) [#/Vol] 0.00 {3/UL} Normal 0.00 - 0.10 {3/UL} [facility].; [place] [email or web address] [facility] Basophils/100 WBC (Bld) 0.3 % Normal 0.0 - 2.0 % [place] [employer].; [employer]. CBC W Auto Differential panel (Bld) CBC Normal [facility].; [place] [employer], [facility] Eosinophils (Bld) [#/Vol] 0.10 {3/UL} Normal 0.00 - 0.50 {3/UL} [place] [email or web address] [facility].; [employer]. Eosinophils/100 WBC (Bld) 1.4 % Normal 0.0 - 7.0 % [place] [employer].; [employer], [employer] Erythrocyte distribution width (RBC) [Ratio] 12.6 % Normal 12.0 - 15.6 % [place] [employer].; [employer], [employer]. ESR (Bld) [Velocity] 8 mm/h Normal 0 - 30 mm/h [place] [email or web address] [facility].; [employer], [employer]. Hematocrit (Bld) [Volume fraction] 40.9 % Normal 34.0 - 46.0 % [place] [email or web address] [facility].; [employer], [facility]. Hemoglobin (Bld) [Mass/Vol] 13.7 g/dL Normal 12.0 - 16.0 g/dL [place] [email or web address] [facility].; [employer], [facility]. Lymphocytes (Bld) [#/Vol] 2.30 {3/UL} Normal 0.80 - 2.80 {3/UL} [place] [employer], [employer].; [employer], [employer] Lymphocytes/100 WBC (Bld) 23.7 % Normal 20.0 - 45.0 % [employer].; [employer]. MCH (RBC) [Entitic mass] 31 pg Normal 27 - 33 pg [place] [employer].; [employer], [employer]. MCHC (RBC) [Mass/Vol] 34 {X10_3} Normal 32 - 3 6 {X10_3} [place] [employer], [employer].; [employer], [employer]. MCV (RBC) [Entitic vol] 91 fL Normal 80 - 99 fL [employer].; [employer]. Monocytes (Bld) [#/Vol] 0.60 {3/UL} Normal 0.20 - 1.00 {3/UL} [employer].; [employer], [employer]. Monocytes/100 WBC (Bld) 6.5 % Normal 0.0 - 10.0 % [place] [employer].; [employer]. Morphology Gordon (Bld) [Interp] N/A Normal [place] [employer].; [employer]. Neutrophils (Bld) [#/Vol] 6.50 {3/UL} Normal 1.50 - 7.10 {3/UL} [employer].; [employer], [employer]. Neutrophils/100 WBC (Bld) 68.1 % Normal 46.0 - 76.0 % [place] [employer].; [employer], [employer]. Platelet mean volume (Bld) [Entitic vol] 9.9 fL Normal 6.6 - 10.5 fL [employer].; [employer], [employer]. Platelets (Bld) [#/Vol] 232 {3/UL} Normal 150 - 450 {3/UL} [employer].; [employer], [employer]. RBC (Bld) [#/Vol] 4.50 {6/UL} Normal 4.10 - 5.30 {6/UL} [employer].; [employer], [employer]. WBC (Bld) [#/Vol] 9.6 {3/UL} Normal 4.5 - 10.8 {3/UL} [employer]. Laboratory - Serology - non- microon 07-20-2018 Nuclear Ab IA Ql (S) LOLITA WITH REFLEX TO TITER AND PATTERN[QU] Normal [facility] [employer], [employer]. No Panel Informationon 05-27 MANUAL DIFF N/A Normal [facility].; [employer], [employer]. Laboratory - Chemistry and C hemistry - challengeon 02-10-2017 Anion gap [Moles/Vol] 10 mmol/L Normal 10 - 2 0 mmol/L [place] [employer] [facility].; [employer], [employer]. Basic metabolic 2000 panel BMP with eGFR Normal [place] [employer].; [employer], [employer]. Calcium [Mass/Vol] 9.4 mg/dL Normal 8.6 - 10. 2 mg/dL [place] [employer].; [employer], [employer]. Chloride [Moles/Vol] 102 mmol/L Normal 98 - 10 7 mmol/L [place] [employer].; [employer], [employer]. CO2 [Moles/Vol] 31.0 mmol/L Normal 21.0 - 31.0 mmol/L [place] [employer], [employer].; [employer], [employer]. Creatinine [Mass/Vol] 0.6 mg/dL Normal 0.6 - 1.2 mg/dL [place] [employer].; [employer] GFR/1.73 sq M.predicted among blacks MDRD (S/P/Bld) [Vol rate/Area] mL/min/{1.73_m2} Normal 60 - 999 {ML/MINUTE } [place] [employer] [facility], [facility].; [employer] GFR/1.73 sq M.predicted MDRD (S/P/Bld) [Vol rate/Area] mL/min/{1.73_m2} Normal 60 - 999 {ML/MINUTE } [employer], [employer].; [employer] Glucose [Mass/Vol] 70 mg/dL Abnormal 74 - 106 mg/dL [employer], [employer].; [employer] Potassium [Moles/Vol] 3.8 mmol/L Normal 3.5 - 5.1 mmol/L [place] [employer], [employer].; [employer] Sodium [Moles/Vol] 139 mmol/L Normal 136 - 145 mmol/L [facility] [employer].; [employer]. Urea nitrogen [Mass/Vol] 11 mg/dL Normal 6 - 20 mg/dL [place] [employer].; [employer]. No Panel Informationon 02-10 AGE 41 {years} Normal [place] [employer].; [employer], [employer]. Laboratory - Chemistry and C hemistry - challengeon 01-04-2017 Albumin [Mass/Vol] 4.5 g/dL Normal 3.4 - 4.8 g/dL [place] [employer].; [employer]. Albumin [Mass/Vol] 1.9 g/dL Abnormal 0.9 - 1.6 [place] [employer].; [employer], [employer]. ALP [Catalytic activity/Vol] 75 U/L Normal 38 - 126 U/L [place] [employer].; [employer], [employer]. ALT [Catalytic activity/Vol] 10 U/L Normal 8 - 35 U/L [place] [employer].; [employer], [employer]. ALT No additional P-5'-P [Catalytic activity/Vol] 10 U/L Normal 8 - 35 U/L [place] [employer].; [employer]. Anion gap [Moles/Vol] 10 mmol/L Normal 10 - 2 0 mmol/L [place] [employer].; [employer], [employer]. AST [Catalytic activity/Vol] 13 U/L Normal 13 - 39 U/L [place] [employer], [employer].; [employer], [employer]. Bilirubin [Mass/Vol] 0.8 mg/dL Normal 0.0 - 1 .5 mg/dL [place] [employer].; [employer], [employer]. Calcium [Mass/Vol] 9.4 mg/dL Normal 8.6 - 10. 2 mg/dL [place] [employer], [employer].; [employer], [employer]. Chloride [Moles/Vol] 106 mmol/L Normal 98 - 10 7 mmol/L [place] [employer], [employer]. Cholesterol [Mass/Vol] 187 mg/dL Normal 0 - 200 mg/dL [place] [employer], [employer].; [employer], [employer]. Cholesterol in HDL [Mass or moles/Vol] 69 mg/dL Abnormal 40 - 60 mg/dL [facility].; [facility], [facility]. Cholesterol in LDL [Mass/Vol] 100 mg/dL Normal 0 - 129 mg/dL [facility].; [facility], [facility] Cholesterol.total/Cho lesterol in HDL [Mass ratio] 2.7 {ratio} Normal 0.0 - 5.0 [facility]; [facility], [facility] CO2 [Moles/Vol] 28.0 mmol/L Normal 21.0 - 31.0 mmol/L [facility].; [facility], [facility] Comprehensive metabolic 2000 panel CMP with eGFR Normal [facility]; [facility], [facility] Creatinine [Mass/Vol] 0.6 mg/dL Normal 0.6 - 1.2 mg/dL [facility]; [facility], [facility]. GFR/1.73 sq M.predicted among blacks MDRD (S/P/Bld) [Vol rate/Area] 133 {ML/MINUTE} Normal 60 - 999 {ML/MINUTE } [facility], [facility].; [facility], [facility]. GFR/1.73 sq M.predicted MDRD (S/P/Bld) [Vol rate/Area] 110 {ML/MINUTE} Normal 60 - 999 {ML/MINUTE } [facility], [facility].; [facility], [facility]. Globulin (S) [Mass/Vol] 2.4 g/dL Normal 1.5 - 3.8 g/dL [facility], [facility].; [facility], [facility]. Glucose [Mass/Vol] 83 mg/dL Normal 74 - 106 mg/dL [facility], [facility].; [facility], [facility]. Lipid 1996 panel LIPID PROFILE Normal [facility].; [facility], [facility] Potassium [Moles/Vol] 6.3 mmol/L Abnormal 3.5 - 5.1 mmol/L [facility].; [facility], [facility] Protein [Mass/Vol] 6.9 g/dL Normal 6.4 - 8.3 g/dL [facility], [facility].; [facility], [facility]. Sodium [Moles/Vol] 138 mmol/L Normal 136 - 145 mmol/L [facility].; [facility] Triglyceride [Mass/Vol] 88 mg/dL Normal 0 - 150 mg/dL [place] [employer].; [employer]. TSH Qn 0.91 m[IU]/L Normal 0.34 - 5.60 {uIU/ml} [place] [employer].; [employer], [employer]. Urea nitrogen [Mass/Vol] 8 mg/dL Normal 6 - 20 mg/dL [place] [employer].; [employer]. Urea nitrogen/Creatinine [Mass ratio] 13 {ratio} Normal 0 - 30 {ratio} [employer].; [employer]. No Panel Informationon 01-04 AGE 41 {years} Normal [place] [employer].; [employer]. Laboratory - Chemistry and C hemistry - challengeon 05-24-2014 Basic metabolic 2000 panel BMP with eGFR Normal [employer].; [facility] Calcium [Mass/Vol] 9.3 mg/dL Normal 8.6 - 10. 2 mg/dL [place] [employer].; [employer], [employer]. Chloride [Moles/Vol] 105 mmol/L Normal 98 - 10 7 mmol/L [employer].; [employer]. Cholesterol [Mass/Vol] 155 mg/dL Normal 0 - 200 mg/dL [employer].; [employer], [employer]. Cholesterol in HDL [Mass or moles/Vol] 48 mg/dL Normal 40 - 60 mg/dL [place] [employer].; [employer]. Cholesterol in LDL [Mass/Vol] 87 mg/dL Normal 0 - 129 mg/dL [employer].; [employer]. Cholesterol.total/Cho lesterol in HDL [Mass ratio] 3.2 {ratio} Normal 0.0 - 5.0 [place] [employer].; [employer]. CO2 [Moles/Vol] 24.0 mmol/L Normal 13.0 - 29.0 mmol/L [employer], [employer].; [employer], [employer]. Creatinine [Mass/Vol] 0.6 mg/dL Normal 0.6 - 1.2 mg/dL [employer].; [facility]. GFR/1.73 sq M.predicted among blacks MDRD (S/P/Bld) [Vol rate/Area] mL/min/{1.73_m2} Normal 60 - 999 {ML/MINUTE } [facility].; [place] [employer] [facility], [facility]. GFR/1.73 sq M.predicted MDRD (S/P/Bld) [Vol rate/Area] mL/min/{1.73_m2} Normal 60 - 999 {ML/MINUTE } [facility].; [place] [employer] [facility]. Glucose [Mass/Vol] 85 mg/dL Normal 74 - 106 mg/dL [facility].; [place] [employer] [facility] Lipid 1996 panel LIPID PROFILE Normal [facility]; [place] [employer] [facility] Potassium [Moles/Vol] 3.7 mmol/L Normal 3.5 - 5.1 mmol/L [facility].; [place] [employer] [facility] Sodium [Moles/Vol] 136 mmol/L Normal 136 - 145 mmol/L [facility].; [place] [employer]. Triglyceride [Mass/Vol] 100 mg/dL Normal 0 - 150 mg/dL [facility].; [employer]. Urea nitrogen [Mass/Vol] 8 mg/dL Normal 6 - 20 mg/dL [facility].; [employer]. No Panel Informationon 05-24 AGE 38 {years} Normal [facility]; [place] [employer] [facility]. Laboratory - Chemistry and C hemistry - challengeon 02-26-2012 Bilirubin Ql (U) Negative Normal [facility].; [employer]. Ketones Ql (U) Negative Normal [facility].; [employer], [employer]. pH (U) 6.0 [pH] Normal 4.6 - 8.0 [facility].; [employer], [employer]. Specific gravity (U) [Rel density] 1.005 Normal 1.001 - 1.025 [facility].; [employer]. Laboratory - Hematology and Cell countson 02-26-2012 Hemoglobin Ql (U) Negative Normal [facility].; [facility]. Laboratory - Specimen inform ationon 02-26-2012 Appearance (U) clear Normal [employer].; [employer]. Color (U) yellow Normal [employer].; [facility]. Laboratory - Urinalysison Glucose Test strip (U) [Mass/Vol] Negative Normal [employer].; [facility]. Leukocyte esterase Test strip Ql (U) Negative Normal [employer].; [facility]. Nitrite Ql (U) Negative Normal [employer].; [facility]. Protein Ql (U) Negative Normal [facility].; [facility]. No Panel Informationon 02-25 UA - UROBILINOGEN 0.2 mg/dL Normal [employer].; [employer]. Vital Signs Date Time Vital Sign Value Performing Clinician Facility 05-30-2025 11:08-0400 Body height 160.02 cm Leonora Saldivar PA Work Phone: 2(118)535-596239 [place] [address] 05-30-2025 11:08-0400 Body mass index (BMI) [Ratio] 32.1 kg/m2 Leonora Saldivar PA Work Phone: 2(001)720-650539 [place] [address] 05-30-2025 11:08-0400 Body weight 82.1 kg Leonora Saldivar PA Work Phone: 1(987)637-556839 [place] [address] 05-30-2025 11:08-0400 Diastolic blood pressure 74 mm[Hg] Leonora Saldivar PA Work Phone: [facility] 05-30-2025 11:08-0400 Heart rate 71 /min Leonora Saldivar PA Work Phone: 7(321)532-699339 [place] [address] 05-30-2025 11:08-0400 Respiratory rate 16 /min Leonora Saldivar PA Work Phone: [facility] 05-30-2025 11:08-0400 Systolic blood pressure 165 mm[Hg] Leonora Saldivar PA Work Phone: 4(543)647-592410 [place] [address] 04-23-2025 08:55-0400 Body temperature 98 [degF] Leonora Saldivar PA Work Phone: 5(653)275-161449 [place] [address] 04-23-2025 08:55-0400 Diastolic blood pressure 58 mm[Hg] Leonora Saldivar PA Work Phone: 7(534)150-959149 [place] [address] 04-23-2025 08:55-0400 Heart rate 72 /min Leonora Saldivar PA Work Phone: 9(174)479-500149 [place] [address] 04-23-2025 08:55-0400 Respiratory rate 16 /min Leonora Saldivar PA Work Phone: 5(182)299-580349 [place] [address] 04-23-2025 08:55-0400 SaO2% (BldA) [Mass fraction] 96 % Leonora Saldivar PA Work Phone: 6(109)380-500449 [place] [address] 04-23-2025 08:55-0400 Systolic blood pressure 95 mm[Hg] Leonora Saldivar PA Work Phone: 2(881)765-183049 [place] [address] 04-23-2025 06:59-0400 Body height 160.02 cm Leonora Saldivar PA Work Phone: 1(771)973-199749 [place] [address] 04-23-2025 06:59-0400 Body mass index (BMI) [Ratio] 32 kg/m2 Leonora Saldivar PA Work Phone: 9(384)554-874649 [place] [address] 04-23-2025 06:59-0400 Body weight 82 kg Leonora Saldivar PA Work Phone: 5(164)350-316249 [place] [address] 04-16-2025 08:57-0400 Body height 160.02 cm Leonora Saldiavr PA Work Phone: 2(647)018-024149 [place] [address] 04-16-2025 08:57-0400 Body mass index (BMI) [Ratio] 32.2 kg/m2 Leonora Saldivar PA Work Phone: 8(367)722-865049 [place] [address] 04-16-2025 08:57-0400 Body temperature 97.4 [degF] Leonora Saldivar PA Work Phone: 9(587)595-652249 [place] [address] 04-16-2025 08:57-0400 Body weight 82.55 kg Leonora Saldivar PA Work Phone: 5(328)113-992239 [place] [address] 04-16-2025 08:57-0400 Diastolic blood pressure 57 mm[Hg] Leonora Saldivar PA Work Phone: 8(432)308-635249 [place] [address] 04-16-2025 08:57-0400 Heart rate 67 /min Leonora Saldivar PA Work Phone: 5(827)609-693549 [place] [address] 04-16-2025 08:57-0400 Respiratory rate 18 /min Leonora Saldivar PA Work Phone: 1(753)972-746949 [place] [address] 04-16-2025 08:57-0400 SaO2% (BldA) [Mass fraction] 99 % Leonora Saldivar PA Work Phone: 3(492)824-523149 [place] [address] 04-16-2025 08:57-0400 Systolic blood pressure 100 mm[Hg] Leonora Saldivar PA Work Phone: 2(083)202-112149 [place] [address] 03-27-2025 12:28-0400 Body height 160.02 cm Leonora Saldivar PA Work Phone: 0(843)028-756849 [place] [address] 03-27-2025 12:28-0400 Body weight 83.91 kg Leonora Saldivar PA Work Phone: 3(141)956-976649 [place] [address] 03-27-2025 12:28-0400 Heart rate 69 /min Leonora Saldivar PA Work Phone: 2(428)850-119749 [place] [address] 03-27-2025 12:28-0400 Inhaled oxygen concentration 21 % Leonora Saldivar PA Work Phone: 6(215)897-705349 [place] [address] 03-27-2025 12:28-0400 Inhaled oxygen flow rate 21 L/min Leonora Saldivar PA Work Phone: 2(571)813-551849 [place] [address] 03-27-2025 12:28-0400 SaO2% (BldA) [Mass fraction] 98 % Leonora Saldivar PA Work Phone: 0(577)034-585649 [place] [address] 03-05-2025 08:44-0400 Body mass index (BMI) [Ratio] 32.9 kg/m2 Leonora Saldivar PA Work Phone: 0(849)143-818349 [place] [address] 03-05-2025 08:44-0400 Body temperature 97.4 [degF] Leonora Saldivar PA Work Phone: [facility] 03-05-2025 08:44-0400 Body weight 84.36 kg Leonora Saldivar PA Work Phone: [facility] 03-05-2025 08:44-0400 Diastolic blood pressure 93 mm[Hg] Leonora Saldivar PA Work Phone: [facility] 03-05-2025 08:44-0400 Heart rate 62 /min Leonora Saldivar PA Work Phone: [facility] 03-05-2025 08:44-0400 Respiratory rate 18 /min Leonora Saldivar PA Work Phone: [facility] 03-05-2025 08:44-0400 SaO2% (BldA) [Mass fraction] 99 % Leonora Saldivar PA Work Phone: [facility] 03-05-2025 08:44-0400 Systolic blood pressure 154 mm[Hg] Leonora Saldivar PA Work Phone: [facility] 02-02-2025 14:04-0400 Body height 160.02 cm Leonora J Saldivar PA-C Work Phone: [employer].; [employer] 02-02-2025 14:04-0400 Body mass index (BMI) [Ratio] 32.28 kg/m2 Leonora J Saldivar PA-C Work Phone: [employer]; [employer] [facility] 02-02-2025 14:04-0400 Body surface area Derived from formula 1.86 m2 Leonora J Saldivar PA-C Work Phone: [employer]; [employer] 02-02-2025 14:04-0400 Body temperature 97.9 [degF] Leonora J Saldivar PA-C Work Phone: [employer]; [employer]. Comment on above: Method: Tympanic 02-02-2025 14:04-0400 Body weight 82.67 kg Leonora Linh Saldivar PA-C Work Phone: [facility]; [place] [employer]. 02-02-2025 14:04-0400 Diastolic blood pressure 86 mm[Hg] Leonora J Saldivar PA-C Work Phone: [facility] [employer]; [place] [employer]. Comment on above: Patient Position: Sitting; Cuff Location : Left Arm; Cuff Size: Standard 02-02-2025 14:04-0400 Heart rate 112 /min Leonora J Saldivar PA-C Work Phone: [facility] [employer]; [employer]. Comment on above: Pattern: Regular 02-02-2025 14:04-0400 Inhaled oxygen concentration 21 % Leonora J Saldivar PA-C Work Phone: [facility] [employer]; [employer]. Comment on above: Room air 02-02-2025 14:04-0400 SaO2% (BldA) [Mass fraction] 96 % Leonora J Saldivar PA-C Work Phone: [facility]; [employer]. 02-02-2025 14:04-0400 Systolic blood pressure 128 mm[Hg] Leonora J Saldivar PA-C Work Phone: [facility] [employer]; [employer]. Comment on above: Patient Position: Sitting; Cuff Location : Left Arm; Cuff Size: Standard 01-08-2025 10:030500 Body height 160.02 cm Radha Lyons RN [facility].; [place] [email or web address] [facility]. 01-08-2025 10:03-0500 Body mass index (BMI) [Ratio] 32.24 kg/m2 Radha Lyons RN [facility].; [place] [employer]. 01-08-2025 10:03-0500 Body surface area Derived from formula 1.86 m2 Radha Lyons RN [facility].; [employer] [facility]. 01-08-2025 10:030500 Body weight 82.56 kg Radha Lyons RN [facility].; [place] [employer] [facility]. 01-08-2025 10:03-0500 Diastolic blood pressure 65 mm[Hg] Radha Lyons RN [facility].; [employer]. Comment on above: Patient Position: Sitting; Cuff Location : Left Arm; Cuff Size: Standard 01-08-2025 10:03-0500 Heart rate 69 /min Radha Lyons RN [facility].; [employer] [facility]. Comment on above: Pattern: Regular 01-08-2025 10:030500 Inhaled oxygen concentration 21 % Radha Lyons RN [facility].; [employer]. Comment on above: Room air 01-08-2025 10:030500 SaO2% (BldA) [Mass fraction] 99 % Radha Lyons RN [facility].; [employer] [facility]. 01-08-2025 10:03-0500 Systolic blood pressure 96 mm[Hg] Radha Lyons RN [place] [employer] [facility].; [employer]. Comment on above: Patient Position: Sitting; Cuff Location : Left Arm; Cuff Size: Standard 07-24-2024 12:52-0400 Body mass index (BMI) [Ratio] 29.76 kg/m2 Laurita Shaheen RADIAL ROUTER OPERATOR.[employer] Work Phone: [facility] 07-24-2024 12:52-0400 Body weight 76.2 kg Laurita Shaheen RADIAL ROUTER OPERATOR.[employer] Work Phone: [facility] 07-24-2024 12:52-0400 Diastolic blood pressure 70 mm[Hg] Laurita Buckeye RADIAL ROUTER OPERATOR.[employer] Work Phone: [facility] 07-24-2024 12:52-0400 Systolic blood pressure 120 mm[Hg] Laurita Shaheen RADIAL ROUTER OPERATOR.[employer] Work Phone: [facility] 07-13-2024 09:59-0400 Body height 160.02 cm Bridget Smith MA [facility], [facility].; [facility]. 07-13-2024 09:59-0400 Body mass index (BMI) [Ratio] 29.41 kg/m2 Bridget Smith MA [facility], [facility].; [facility]. 07-13-2024 09:59-0400 Body surface area Derived from formula 1.79 m2 Bridget Smith MA [facility].; [facility]. 07-13-2024 09:59-0400 Body weight 75.3 kg Bridget Smith MA [facility].; [facility]. 07-13-2024 09:59-0400 Diastolic blood pressure 73 mm[Hg] Bridget Smith MA [facility].; [facility]. Comment on above: Patient Position: Sitting; Cuff Location : Left Arm; Cuff Size: Standard 07-13-2024 09:59-0400 Heart rate 71 /min Bridget Smith MA [facility].; [place] [employer] [facility]. Comment on above: Pattern: Regular 07-13-2024 09:59-0400 Systolic blood pressure 115 mm[Hg] Bridget Smith MA [facility].; [facility]. Comment on above: Patient Position: Sitting; Cuff Location : Left Arm; Cuff Size: Standard 05-29-2024 14:11-0400 Body mass index (BMI) [Ratio] 29.05 kg/m2 Laurita Buckeye RADIAL ROUTER OPERATOR.[employer] Work Phone: [facility] 05-29-2024 14:11-0400 Body weight 74.39 kg Laurita Buckeye RADIAL ROUTER OPERATOR.[employer] Work Phone: [facility] 05-29-2024 14:11-0400 Diastolic blood pressure 70 mm[Hg] Laurita Buckeye RADIAL ROUTER OPERATOR.[employer] Work Phone: [facility] 05-29-2024 14:11-0400 Systolic blood pressure 122 mm[Hg] Laurita Shaheen RADIAL ROUTER OPERATOR.[employer] Work Phone: [facility] 03-27-2024 [id number] Body height 160 cm Laurita Buckeye RADIAL ROUTER OPERATOR.[facility] Work Phone: [facility] 03-27-2024 10:28-0400 Body mass index (BMI) [Ratio] 27.74 kg/m2 Laurita Buckeye RADIAL ROUTER OPERATOR.[facility] Work Phone: [facility] 03-27-2024 [id number] Body weight 71.03 kg Laurita Shaheen RADIAL ROUTER OPERATOR.[employer] Work Phone: [facility] 03-27-2024 10:28-0400 Diastolic blood pressure 80 mm[Hg] Laurita Shaheen RADIAL ROUTER OPERATOR.[facility] Work Phone: [facility] 03-27-2024 10:28-0400 Systolic blood pressure 138 mm[Hg] Laurita Buckeye RADIAL ROUTER OPERATOR.[facility] Work Phone: [facility] 01-04-2024 10:49-0500 Body height 160.02 cm Elizabeth Beard MA [facility], [facility].; [facility]. 01-04-2024 10:49-0500 Body mass index (BMI) [Ratio] 26.96 kg/m2 Elizabeth Beard MA [facility], [facility].; [facility]. 01-04-2024 10:49-0500 Body surface area Derived from formula 1.72 m2 Elizabeth Beard MA [facility], [facility].; [facility]. 01-04-2024 10:49-0500 Body weight 69.03 kg Elizabeth Beard MA [facility], [facility].; [facility]. 01-04-2024 10:49-0500 Diastolic blood pressure 75 mm[Hg] Elizabeth Beard MA [facility], [facility].; [facility]. Comment on above: Patient Position: Sitting; Cuff Location : Left Arm; Cuff Size: Standard 01-04-2024 10:49-0500 Heart rate 84 /min Elizabeth Beard MA [facility], [facility].; [facility]. Comment on above: Pattern: Regular 01-04-2024 10:49-0500 Systolic blood pressure 117 mm[Hg] Elizabeth Beard MA [facility]. Comment on above: Patient Position: Sitting; Cuff Location : Left Arm; Cuff Size: Standard 01-03-2024 07:41-0500 Body height 160.02 cm PA Leonora Saldivar Work Phone: [facility] 01-03-2024 07:41-0500 Body mass index (BMI) [Ratio] 26 kg/m2 PA Leonora Saldivar Work Phone: [facility] 01-03-2024 07:41-0500 Body temperature 96.4 [degF] PA Leonora Saldivar Work Phone: 4(414)868-673867 [address] 01-03-2024 07:41-0500 Body weight 66.67 kg PA Leonora Saldivar Work Phone: 7(873)480-931539 [place] [address] 01-03-2024 07:41-0500 Diastolic blood pressure 72 mm[Hg] PA Leonora Saldivar Work Phone: 9(236)714-287339 [place] [address] 01-03-2024 07:41-0500 Heart rate 68 /min PA Leonora Saldivar Work Phone: 6(667)151-712839 [place] [address] 01-03-2024 07:41-0500 Respiratory rate 18 /min PA Leonora Saldivar Work Phone: [facility] 01-03-2024 07:41-0500 SaO2% (BldA) [Mass fraction] 98 % PA Leonora Saldivar Work Phone: [facility] 01-03-2024 07:41-0500 Systolic blood pressure 106 mm[Hg] PA Leonora Saldivar Work Phone: [facility] 11-03-2023 10:52-0500 Body height 160.[address] Carlin Adam Work Phone: [facility] 11-03-2023 10:52-0500 Body mass index (BMI) [Ratio] 26.4 kg/m2 Dr. Carlin Adam Work Phone: [facility] 11-03-2023 10:52-0500 Body temperature 98.4 [degF] Dr. Carlin Adam Work Phone: 5(034)907-882767 [address] 11-03-2023 10:52-0500 Body weight 67.[address] Carlin Adam Work Phone: 8(955)351-535539 [place] [address] 11-03-2023 10:52-0500 Diastolic blood pressure 74 mm[Hg] Dr. Carlin Adam Work Phone: 5(867)136-872667 [address] 11-03-2023 10:52-0500 Heart rate 51 /min Dr. Carlin Adam Work Phone: 9(498)817-567249 [place] [address] 11-03-2023 10:52-0500 Respiratory rate 18 /min Dr. Carlin Adam Work Phone: 4(014)691-697349 [place] [address] 11-03-2023 10:52-0500 SaO2% (BldA) [Mass fraction] 97 % Dr. Carlin Adam Work Phone: 4(494)074-238739 [place] [address] 11-03-2023 10:52-0500 Systolic blood pressure 129 mm[Hg] Dr. Carlin Adam Work Phone: 8(503)909-258649 [place] [address] 10-25-2023 13:53-0500 Body height 160.[address] Carlin Adam Work Phone: 6(884)174-723949 [place] [address] 10-25-2023 13:53-0500 Body weight 65.[address] Carlin Adam Work Phone: 1(358)588-082167 [address] 10-25-2023 13:53-0500 Heart rate 84 /min Dr. Carlin Adam Work Phone: 2(699)328-881267 [address] 10-25-2023 13:53-0500 SaO2% (BldA) [Mass fraction] 99 % Dr. Carlin Adam Work Phone: 4(910)128-670367 [address] 09-15-2023 06:30-0500 Body mass index (BMI) [Ratio] 27.3 kg/m2 Dr. Carlin Adam Work Phone: 1(146)070-002839 [place] [address] 09-15-2023 06:30-0500 Body temperature 96.8 [degF] Dr. Carlin Adam Work Phone: [facility] 09-15-2023 06:30-0500 Body weight 69.[address] Carlin Adam Work Phone: [facility] 09-15-2023 06:30-0500 Diastolic blood pressure 68 mm[Hg] Dr. Carlin Adam Work Phone: [facility] 09-15-2023 06:30-0500 Heart rate 84 /min Dr. Carlin Adam Work Phone: [facility] 09-15-2023 06:30-0500 SaO2% (BldA) [Mass fraction] 96 % Dr. Carlin Adam Work Phone: [facility] 09-15-2023 06:30-0500 Systolic blood pressure 122 mm[Hg] Dr. Carlin Adam Work Phone: [facility] 08-09-2023 [id number] Body height 160.02 cm Elizabeth Beard MA [facility] [employer]. 08-09-2023 10:11-0400 Body mass index (BMI) [Ratio] 27.18 kg/m2 Elizabeth Beard MA [employer] [facility], Inc.; [employer] 08-09-2023 10:11-040 Body surface area Derived from formula 1.73 m2 Elizabeth Beard MA [facility], Inc.; [employer] 08-09-2023 10:11040 Body weight 69.6 kg Elizabeth Beard MA [employer] [facility] Inc.; [employer]. 08-09-2023 10:110400 Diastolic blood pressure 74 mm[Hg] Elizabeth Beard MA [employer] [facility].; [employer]. Comment on above: Patient Position: Sitting; Cuff Location : Left Arm; Cuff Size: Standard 08-09-2023 10:11040 Heart rate 98 /min Elizabeth Beard MA [employer] [facility], Inc.; [employer], [employer]. Comment on above: Pattern: Regular 08-09-2023 10:110400 Systolic blood pressure 109 mm[Hg] Elizabeth Beard MA [facility], Inc.; [employer] [facility]. Comment on above: Patient Position: Sitting; Cuff Location : Left Arm; Cuff Size: Standard 06-11-2023 13:18-0400 Body height 160.02 cm Elizabeth Beard MA [facility], [facility].; [place] [email or web address] 06-11-2023 13:18-0400 Body mass index (BMI) [Ratio] 26.57 kg/m2 Elizabeth Beard MA [facility].; [place] [email or web address] [facility]. 06-11-2023 13:18-0400 Body surface area Derived from formula 1.71 m2 Elizabeth Beard MA [facility].; [place] [email or web address] [facility]. 06-11-2023 13:18040 Body weight 68.04 kg Elizabeth Beard MA [facility].; [email or web address] [facility]. 06-11-2023 13:18-0400 Diastolic blood pressure 89 mm[Hg] Elizabeth [facility]ard MA [facility].; [employer]. Comment on above: Patient Position: Sitting; Cuff Location : Left Arm; Cuff Size: Standard 06-11-2023 13:18-0400 Heart rate 79 /min Elizabeth Beard MA [facility].; [employer]. Comment on above: Pattern: Regular 06-11-2023 13:18-0400 Systolic blood pressure 131 mm[Hg] Elizabeth Beard MA [facility].; [employer]. Comment on above: Patient Position: Sitting; Cuff Location : Left Arm; Cuff Size: Standard 10-15-2021 10:33-0500 Body height 160.02 cm Daniella Virgen LPN [facility].; [place] [email or web address] [facility]. 10-15-2021 10:33-0500 Body mass index (BMI) [Ratio] 24.98 kg/m2 Daniella Virgen LPN [place] [employer] [facility].; [place] [email or web address] [facility]. 10-15-2021 10:33-0500 Body surface area Derived from formula 1.67 m2 Daniella Virgen LPN [facility].; [place] [email or web address] [facility]. 10-15-2021 10:33-0500 Body weight 63.96 kg Daniella Virgen DEEPIKA [facility], [facility].; [place] [employer] [facility], [facility]. 10-15-2021 10:33-0500 Diastolic blood pressure 72 mm[Hg] Daniellaadrian Virgen DEEPIKA [facility], [facility].; [place] [employer] [facility], [facility]. Comment on above: Patient Position: Sitting; Cuff Location : Left Arm; Cuff Size: Standard 10-15-2021 10:33-0500 Heart rate 91 /min Daniella Param POE [facility], Inc.; [place] [employer], [facility]. Comment on above: Pattern: Regular 10-15-2021 10:33-0500 Systolic blood pressure 112 mm[Hg] Daniellaadrian Virgen DEEPIKA [facility], [facility].; [place] [employer], [facility]. Comment on above: Patient Position: Sitting; Cuff Location : Left Arm; Cuff Size: Standard 08-04-2021 13:09040 Body height 160.02 cm Lady Bowers SAMPLE GRADER [facility], Inc.; [place] [employer] [facility], [facility]. 08-04-2021 13:09-0400 Body mass index (BMI) [Ratio] 25.51 kg/m2 Ladyerica Isidrorosey [facility], [facility].; [place] [employer] [facility], [facility]. 08-04-2021 13:09040 Body surface area Derived from formula 1.68 m2 Ladyaleah Bowers SAMPLE GRADER [facility], [facility].; [place] [employer] [facility], [facility]. 08-04-2021 13:090400 Body weight 65.32 kg Lady Robinson SAMPLE GRADER [facility], [facility].; [place] [employer] [facility], [facility]. 08-04-2021 13:090400 Diastolic blood pressure 78 mm[Hg] Ladyerica Isidrorosey POE [facility], [facility].; [employer], [employer]. Comment on above: Patient Position: Sitting; Cuff Location : Left Arm; Cuff Size: Standard 08-04-2021 13:09-0400 Heart rate 92 /min Lady Bowers LPN [facility], Inc.; [employer], [employer]. Comment on above: Pattern: Regular 08-04-2021 13:09-0400 Systolic blood pressure 127 mm[Hg] Lady Robinson POE [employer].; [employer]. Comment on above: Patient Position: Sitting; Cuff Location : Left Arm; Cuff Size: Standard 01-26-2019 14:15-0400 Body height 160.02 cm Radha Lyons RN [employer].; [employer]. 01-26-2019 14:15-0400 Body mass index (BMI) [Ratio] 26.93 kg/m2 Radha Lyons RN [employer].; [employer]. 01-26-2019 14:15-0400 Body surface area Derived from formula 1.72 m2 Radha Lyons RN [employer].; [employer]. 01-26-2019 14:15-0400 Body temperature 98.4 [degF] Radha Lyons RN [employer].; [employer]. Comment on above: Method: Tympanic 01-26-2019 14:15-0400 Body weight 68.95 kg Radha Lyons RN [employer].; [employer]. 01-26-2019 14:15-0400 Diastolic blood pressure 63 mm[Hg] Radha Lyons RN [employer].; [employer]. Comment on above: Patient Position: Sitting; Cuff Location : Left Arm; Cuff Size: Standard 01-26-2019 14:15-0400 Heart rate 69 /min Radha Lyons RN [employer].; [employer]. Comment on above: Pattern: Regular 01-26-2019 14:15-0400 Systolic blood pressure 98 mm[Hg] Radha Lyons RN [employer].; [employer]. Comment on above: Patient Position: Sitting; Cuff Location : Left Arm; Cuff Size: Standard 11-29-2018 11:01-0500 Body height 160.02 cm Leonora Saldivar PA-C Work Phone: [employer].; [employer]. 11-29-2018 11:01-0500 Body mass index (BMI) [Ratio] 26.57 kg/m2 Leonora DOVEC Work Phone: [employer]; [employer]. 11-29-2018 11:01-0500 Body surface area Derived from formula 1.71 m2 Leonora Saldivar PA-C Work Phone: [employer]; [employer]. 11-29-2018 11:01-0500 Body weight 68.04 kg Leonora Saldivar PA-C Work Phone: [employer]; [employer] 11-29-2018 11:01-0500 Diastolic blood pressure 74 mm[Hg] Leonora Saldivar PA-C Work Phone: [employer]; [employer]. Comment on above: Patient Position: Sitting; Cuff Location : Left Arm; Cuff Size: Standard 11-29-2018 11:01-0500 Heart rate 79 /min Leonora Saldivar PA-C Work Phone: [employer]; [employer] Comment on above: Pattern: Regular 11-29-2018 11:01-0500 Systolic blood pressure 113 mm[Hg] Leonora Saldivar PA-C Work Phone: [employer]; [employer] Comment on above: Patient Position: Sitting; Cuff Location : Left Arm; Cuff Size: Standard 08-26-2018 12:02-0400 Body height 160.02 cm Leonora Saldivar PA-C Work Phone: [employer]; [employer] 08-26-2018 12:02-0400 Body mass index (BMI) [Ratio] 23.91 kg/m2 Leonora Saldivar PA-C Work Phone: [employer]; [employer] 08-26-2018 12:02-0400 Body surface area Derived from formula 1.64 m2 Leonora Saldivar PA-C Work Phone: [employer]; [employer] 08-26-2018 12:02-0400 Body weight 61.24 kg Leonora Saldivar PA-C Work Phone: [employer].; [employer]. 08-26-2018 12:02-0400 Diastolic blood pressure 68 mm[Hg] Leonora Saldivar PA-C Work Phone: [employer].; [employer]. Comment on above: Patient Position: Sitting; Cuff Location : Left Arm; Cuff Size: Standard 08-26-2018 12:02-0400 Heart rate 64 /min Leonora Saldivar PA-C Work Phone: [employer].; [employer]. Comment on above: Pattern: Regular 08-26-2018 12:02-0400 Systolic blood pressure 105 mm[Hg] Leonora Saldivar PA-C Work Phone: [employer]; [employer]. Comment on above: Patient Position: Sitting; Cuff Location : Left Arm; Cuff Size: Standard 06-03-2018 15:130400 Body height 160.02 cm Nava Garcias LPN [employer].; [employer]. 06-03-2018 15:13-0400 Body mass index (BMI) [Ratio] 23.56 kg/m2 Nava Garcias LPN [employer], [employer].; [employer]. 06-03-2018 15:13-0400 Body surface area Derived from formula 1.63 m2 Nava Garcias LPN [employer].; [employer]. 06-03-2018 15:13-0400 Body weight 60.33 kg Nava Garcias LPN [employer].; [employer]. 06-03-2018 15:13-0400 Diastolic blood pressure 66 mm[Hg] Nava Garcias LPN [employer].; [employer]. Comment on above: Patient Position: Sitting; Cuff Location : Left Arm; Cuff Size: Standard 06-03-2018 15:13-0400 Heart rate 69 /min Nava Garcias LPN [employer].; [employer]. Comment on above: Pattern: Regular 06-03-2018 15:13-0400 Systolic blood pressure 107 mm[Hg] Nava Garcias LPN [facility], Inc.; [employer]. Comment on above: Patient Position: Sitting; Cuff Location : Left Arm; Cuff Size: Standard 05-27-2018 15:52-0400 Body height 160.02 cm Nava Garcias LPN [facility], Inc.; [employer]. 05-27-2018 15:52-0400 Body mass index (BMI) [Ratio] 23.38 kg/m2 Nava Garcias LPN [facility], Inc.; [employer]. 05-27-2018 15:52-0400 Body surface area Derived from formula 1.62 m2 Nava Garcias LPN [facility], Inc.; [employer]. 05-27-2018 15:52-0400 Body temperature 97.7 [degF] Nava Garcias LPN [facility], Inc.; [employer]. 05-27-2018 15:52-0400 Body weight 59.88 kg Nava Garcias LPN [facility], Inc.; [employer]. 05-27-2018 15:52-0400 Diastolic blood pressure 77 mm[Hg] Nava Garcias LPN [facility], Inc.; [employer], [employer]. Comment on above: Patient Position: Sitting; Cuff Location : Left Arm; Cuff Size: Standard 05-27-2018 15:52-0400 Heart rate 84 /min Nava Garcias LPN [facility], Inc.; [employer]. Comment on above: Pattern: Regular 05-27-2018 15:52-0400 Systolic blood pressure 109 mm[Hg] Nava Garcias LPN [place] [employer] [facility], Inc.; [employer]. Comment on above: Patient Position: Sitting; Cuff Location : Left Arm; Cuff Size: Standard 01-04-2017 10:23-0500 Body height 160.02 cm Radha Lyons RN [place] [employer] [facility], [employer].; [employer]. 01-04-2017 10:23-0500 Body mass index (BMI) [Ratio] 21.43 kg/m2 Radha Lyons RN [facility], Inc.; [employer]. 01-04-2017 10:23-0500 Body surface area Derived from formula 1.56 m2 Radha Lyons RN [employer].; [employer]. 01-04-2017 10:23-0500 Body weight 54.89 kg Radha Lyons RN [employer].; [employer]. 01-04-2017 10:23-0500 Diastolic blood pressure 88 mm[Hg] Radha Lyons RN [employer].; [employer]. Comment on above: Patient Position: Sitting; Cuff Location : Left Arm; Cuff Size: Standard 01-04-2017 10:23-0500 Heart rate 62 /min Radha Lyons RN [employer].; [employer]. Comment on above: Pattern: Regular 01-04-2017 10:23-0500 Systolic blood pressure 139 mm[Hg] Radha Lyons RN [employer]. Comment on above: Patient Position: Sitting; Cuff Location : Left Arm; Cuff Size: Standard 12-09-2015 09:07-0500 Body height 160.02 cm Radha Lyons RN [employer].; [employer]. 12-09-2015 09:07-0500 Body mass index (BMI) [Ratio] 22.32 kg/m2 Radha Lyons RN [employer].; [employer]. 12-09-2015 09:07-0500 Body surface area Derived from formula 1.59 m2 Radha Lyons RN [employer].; [employer]. 12-09-2015 09:07-0500 Body temperature 98.2 [degF] Radha Lyons RN [employer].; [employer]. Comment on above: Method: Tympanic 12-09-2015 09:07-0500 Body weight 57.15 kg Radha Lyons RN [employer]. 12-09-2015 09:07-0500 Diastolic blood pressure 60 mm[Hg] Radha Lyons RN [place] [employer] [facility].; [employer]. Comment on above: Patient Position: Sitting; Cuff Location : Left Arm; Cuff Size: Standard 12-09-2015 09:07-0500 Heart rate 80 /min Radha Lyons RN [facility], [employer].; [employer]. Comment on above: Pattern: Regular 12-09-2015 09:07-0500 Inhaled oxygen concentration 20 % Radha Lyons RN [facility].; [employer]. Comment on above: Room air 12-09-2015 09:07-0500 Inhaled oxygen concentration 21 % Radha Lyons RN [place] [employer] [facility].; [employer]. Comment on above: Room air 12-09-2015 09:07-0500 SaO2% (BldA) [Mass fraction] 99 % Radha Lyons RN [place] [employer] [facility].; [employer]. 12-09-2015 09:07-0500 Systolic blood pressure 101 mm[Hg] Radha Lyons RN [place] [employer].; [employer]. Comment on above: Patient Position: Sitting; Cuff Location : Left Arm; Cuff Size: Standard 10-09-2015 11:45-0500 Body height 160.02 cm Leonor Zaman LPN [facility], [employer].; [employer]. 10-09-2015 11:45-0500 Body mass index (BMI) [Ratio] 23.03 kg/m2 Leonor Zaman LPN [place] [employer] [facility].; [employer]. 10-09-2015 11:45-0500 Body surface area Derived from formula 1.61 m2 Leonor Zaman LPN [place] [employer] [facility], [employer].; [employer]. 10-09-2015 11:45-0500 Body temperature 97.2 [degF] Leonor Zaman LPN [place] [employer] [facility].; [employer]. Comment on above: Method: Tympanic 10-09-2015 11:45-0500 Body weight 58.97 kg Leonor Barrigaallan DEEPIKA [place] [employer] [facility], Inc.; [employer]. 10-09-2015 11:45-0500 Diastolic blood pressure 68 mm[Hg] Leonor Villalobosrios POE [facility], Inc.; [employer]. Comment on above: Patient Position: Sitting; Cuff Location : Left Arm; Cuff Size: Standard 10-09-2015 11:45-0500 Heart rate 93 /min Leonor Zaman LPN [place] [employer] [facility], Inc.; [employer]. Comment on above: Pattern: Regular 10-09-2015 11:45-0500 Inhaled oxygen concentration 20 % Leonor Werios [facility] [employer] [facility], [employer].; [employer]. Comment on above: Room air 10-09-2015 11:45-0500 Inhaled oxygen concentration 21 % Leonor Wilfredorios POE [place] [employer] [facility], Inc.; [employer]. Comment on above: Room air 10-09-2015 11:45-0500 SaO2% (BldA) [Mass fraction] 98 % Leonor Werios POE [place] [employer] [facility], Inc.; [employer], [employer]. 10-09-2015 11:45-0500 Systolic blood pressure 100 mm[Hg] [facility] [employer].; [employer]. Comment on above: Patient Position: Sitting; Cuff Location : Left Arm; Cuff Size: Standard 03-20-2014 08:10-0400 Body height 160.02 cm Shyla Rossi RN Work Phone: [place] [employer].; [employer]. 03-20-2014 08:10-0400 Body mass index (BMI) [Ratio] 23.74 kg/m2 Shyla Rossi RN Work Phone: [employer].; [employer]. 03-20-2014 08:10-0400 Body surface area Derived from formula 1.63 m2 Shyla Rossi RN Work Phone: [employer].; [employer]. 03-20-2014 08:10-0400 Body weight 60.78 kg Shyla Rossi RN Work Phone: [employer].; [employer]. 03-20-2014 08:10-0400 Diastolic blood pressure 58 mm[Hg] Shyla Rossi RN Work Phone: [place] [employer].; [employer]. Comment on above: Patient Position: Sitting; Cuff Location : Right Arm; Cuff Size: Standard 03-20-2014 08:10-0400 Heart rate 63 /min Shyla Rossi RN Work Phone: [place] [employer].; [employer]. Comment on above: Pattern: Regular 03-20-2014 08:10-0400 Systolic blood pressure 101 mm[Hg] Shyla Rossi RN Work Phone: [place] [employer].; [employer]. Comment on above: Patient Position: Sitting; Cuff Location : Right Arm; Cuff Size: Standard 02-26-2012 10:45-0400 Body height 160.02 cm Shyla Rossi RN Work Phone: [employer].; [employer]. 02-26-2012 10:45-0400 Body mass index (BMI) [Ratio] 21.97 kg/m2 Shyla Rossi RN Work Phone: [employer].; [employer]. 02-26-2012 10:45-0400 Body surface area Derived from formula 1.58 m2 Shyla Rossi RN Work Phone: [employer].; [employer]. 02-26-2012 10:45-0400 Body weight 56.25 kg Shyla Rossi RN Work Phone: [employer].; [employer]. 02-26-2012 10:45-0400 Diastolic blood pressure 68 mm[Hg] Shyla Rossi RN Work Phone: [employer].; [employer]. Comment on above: Patient Position: Sitting; Cuff Location : Left Arm; Cuff Size: Standard 02-26-2012 10:45-0400 Heart rate 76 /min Shyla Rossi RN Work Phone: [employer].; [employer]. Comment on above: Pattern: Regular 02-26-2012 10:45-0400 Systolic blood pressure 102 mm[Hg] Shyla Rossi RN Work Phone: [employer].; [employer]. Comment on above: Patient Position: Sitting; Cuff Location : Left Arm; Cuff Size: Standard 02-08-2012 09:06-0400 Body height 160.02 cm Barbra Blanchadr MD Work Phone: [employer].; [employer]. 02-08-2012 09:06-0400 Body mass index (BMI) [Ratio] 21.97 kg/m2 Barbra Blanchard MD Work Phone: [employer].; [employer]. 02-08-2012 09:06-0400 Body surface area Derived from formula 1.58 m2 Barbra Blanchard MD Work Phone: [employer].; [employer]. 02-08-2012 09:06-0400 Body weight 56.25 kg Barbra Blanchard MD Work Phone: [employer].; [employer]. 02-08-2012 09:06-0400 Diastolic blood pressure 71 mm[Hg] Barbra Blanchard MD Work Phone: [employer].; [employer]. Comment on above: Patient Position: Sitting; Cuff Location : Right Arm; Cuff Size: Standard 02-08-2012 09:06-0400 Heart rate 66 /min Barbra Blanchard MD Work Phone: [employer].; [employer]. Comment on above: Pattern: Regular 02-08-2012 09:06-0400 Systolic blood pressure 110 mm[Hg] Barbra Blanchard MD Work Phone: [employer].; [employer]. Comment on above: Patient Position: Sitting; Cuff Location : Right Arm; Cuff Size: Standard 05-12-2011 08:46-0400 Body weight 59.42 kg Shyla Rossi RN Work Phone: [employer] [facility]; [employer]. 05-12-2011 08:46-0400 Diastolic blood pressure 82 mm[Hg] Shyla Rossi RN Work Phone: [place] [employer]. Comment on above: Patient Position: Sitting; Cuff Location : Left Arm; Cuff Size: Standard 05-12-2011 08:46-0400 Heart rate 66 /min Shyla Rossi RN Work Phone: [employer].; [employer]. Comment on above: Pattern: Regular 05-12-2011 08:46-0400 Systolic blood pressure 110 mm[Hg] Shyla Rossi RN Work Phone: [employer] [facility]; [employer]. Comment on above: Patient Position: Sitting; Cuff Location : Left Arm; Cuff Size: Standard Encounters Encounter Date Encounter Type Care Provider Facility Start: 06-28-2025 ambulatory Simon Del Rosario Facility:[facility] Start: 06-18-2025 ambulatory Zack Whalen [facility] y:[facility] Start: 05-30-2025 End: 05-30-2025 Historical Summary Leonoraasha Saldivar PA-C Work Phone: [facility] Start: 05-30-2025 End: 05-30-[address] Simon Del Rosario MD -[facility] Work Phone: Start: 05-30-2025 End: 05-30-2025 ambulatory Leonoraasha Saldivar PA Work Phone: -[facility] Start: 05-30-2025 End: 05-30-2025 ambulatory Leonora Bill Facility:[facility] Start: 05-25-2025 End: 05-25-2025 Patient encounter procedure Leonoraasha Saldivar PA-C Work Phone: [facility] Start: 05-08-2025 Non-patient / Non-visit Dr. Emerita jo MD -[facility] Work Phone: Start: 04-23-2025 Non-patient / Non-visit Dr. Andrés Amador MD -[facility] Start: 04-23-2025 End: 04-23-2025 Admission to same day surgery center Dr. Maddy Amador MD -Endoscopy Work Phone: Start: 04-23-2025 End: 04-23-2025 ambulatory Leonora Saldivar PA Work Phone: [facility] Work Phone: Start: 04-16-2025 End: 04-16-2025 Patient encounter procedure Ashanti Mejía ASSOCIATE PROGRAM MANAGER-C -[facility] Work Phone: Start: 04-16-2025 End: 04-16-2025 ambulatory Leonora Saldivar PA Work Phone: [facility] Work Phone: Start: 04-12-2025 End: 04-12-2025 Patient encounter procedure Leonora Saldivar PA-C Work Phone: [facility] Start: 04-03-2025 ambulatory Ashanti Canalesi ty:[facility] Start: 04-03-2025 Non-patient / Non-visit Dr. Dangelo perla DO -[facility] Start: 04-01-2025 End: 04-01-2025 ambulatory Leonora Saldivar PA Work Phone: [facility] Work Phone: Start: 04-01-2025 End: 04-01-2025 Patient encounter procedure Ashanti Mejía ASSOCIATE PROGRAM MANAGER-C -Sleep Lab Work Phone: Start: 04-01-2025 End: 04-01-2025 ambulatory Ashanti Mejía Facility:[facility] Start: 03-27-2025 End: 03-27-2025 ambulatory Leonora Saldivar PA Work Phone: [facility] Work Phone: Start: 03-27-2025 End: 03-27-2025 Patient encounter procedure Ashanti Mejía ASSOCIATE PROGRAM MANAGER-C -Pulmonary Services/Neurology Work Phone: Start: 03-27-2025 End: 03-27-2025 ambulatory Ashanti Mejía Facility:[facility] Start: 03-23-2025 ambulatory Simon Del Rosario Facility:[facility] Start: 03-23-2025 Non-patient / Non-[facility] Start: 03-23-2025 End: 03-23-2025 Patient encounter procedure Ashanti Mejía ASSOCIATE PROGRAM MANAGER-C -Cardiovascular Services Work Phone: Start: 03-23-2025 End: 03-23-2025 ambulatory Ashanti Mejía Facility:[facility] Start: 03-05-2025 End: 03-05-2025 Patient encounter procedure Ashanti Mejía ASSOCIATE PROGRAM MANAGER-C -[facility] Work Phone: Start: 03-05-2025 End: 03-05-2025 ambulatory Ashanti Mejía Facility:[facility] Start: 02-02-2025 End: 02-02-2025 Office outpatient visit 15 minutes Leonora Saldivar PA-C Work Phone: [employer]. Start: 01-10-2025 End: 01-10-2025 Patient encounter procedure Leonora Saldivar PA-C Work Phone: [employer]. Start: 01-08-2025 End: 01-08-2025 Orders Leonora Saldivar PA-C Work Phone: [employer]. Start: 01-08-2025 End: 01-08-2025 ambulatory LEONORA PAC SALDIVAR [facility] Start: 01-08-2025 End: 01-08-2025 Office outpatient visit 25 minutes Leonora Saldivar PA-C Work Phone: [employer]. Start: 01-08-2025 Review Leonora Saldivar P A-C Work Phone: [employer]. Start: 12-18-2024 End: 02-10-2025 Patient encounter procedure Ashanti Mejía ASSOCIATE PROGRAM MANAGER-C -Pulmonary Services/Neurology Work Phone: Start: 12-18-2024 End: 12-18-2024 ambulatory Ashanti Mejía Facility:[facility] Start: 12-11-2024 End: 12-11-2024 Patient encounter procedure Ashanti Kym ASSOCIATE PROGRAM MANAGER-C -Cat Scan [facility] Work Phone: Start: 12-11-2024 End: 12-11-2024 ambulatory Ashanti Mejía Facility:[facility] Start: 08-28-2024 End: 08-28-2024 ambulatory Ashanti Mejía [place] Start: 07-31-2024 Review Leonora Segovia A-C Work Phone: [facility] Start: 07-24-2024 End: 07-24-2024 ambulatory [facility] Facility:[facility] Start: 07-24-2024 End: 07-24-2024 Patient encounter procedure Laurita Buckeye RADIAL ROUTER OPERATOR.MATE RELIEF Work Phone: OB/Gynecology Comment on above: Menopausal symptoms (Primary Dx); OAB (overactive bladder) Start: 07-13-2024 End: 07-13-2024 Patient encounter status Leonora Saldivar PA-C Work Phone: [facility] [facility] Start: 07-13-2024 End: 07-13-2024 Periodic preventive med est patient 40-64yrs Leonora DOVEC Work Phone: [employer] [facility] Start: 07-13-2024 Review Leonora Saldivar P A-C Work Phone: [employer] [facility] Start: 06-23-2024 End: 06-23-2024 ambulatory LEONORA SALDIVAR [facility] Start: 06-15-2024 Telephone encounter Laurita Metc rachelle RADIAL ROUTER OPERATOR.MATE RELIEF Work Phone: OB/Gynecology Comment on above: Results Start: 05-29-2024 End: 05-29-2024 ambulatory [facility] Facility:[facility] Start: 05-29-2024 End: 05-29-2024 Patient encounter procedure Laurita Wingcalf RADIAL ROUTER OPERATOR.MATE RELIEF Work Phone: OB/Gynecology Comment on above: Unintended weight ga in (Primary Dx); OAB (overactive bladder); Forgetfulness; Hot flashes; Screening cholesterol level; Screening for diabetes mellitus; Screening for metabolic disorder; Encounter for vitamin deficiency screening Start: 05-22-2024 End: 05-22-2024 ambulatory LEONORA SALDIVAR [facility] Start: 05-03-2024 ambulatory [facility] Start: 05-01-2024 End: 05-01-2024 Orders Leonora Saldivar PA-C Work Phone: [facility] Start: 03-27-2024 End: 03-27-2024 ambulatory LAURITA SHAHEEN Facility:[facility] Start: 03-27-2024 End: 03-27-2024 Patient encounter procedure Laurita Jamison APRN.MATE RELIEF Work Phone: OB/Gynecology Comment on above: Encounter for gyneco logical examination (general) (routine) without abnormal findings (Primary Dx); Hot flashes; Encounter for screening mammogram for malignant neoplasm of breast Start: 03-27-2024 End: 03-27-2024 Patient encounter status Laurita Wingcalf RADIAL ROUTER OPERATOR.MATE RELIEF Work Phone: [facility] Start: 01-24-2024 End: 01-24-2024 ambulatory PA Leonora Saldivar Work Phone: [facility] Work Phone: Start: 01-24-2024 End: 01-24-2024 Patient encounter procedure PA Leonora Saldivar Work Phone: [facility]-Pulmonary Services/Neurology Work Phone: Start: 01-07-2024 End: 01-07-2024 Patient encounter procedure Leonora Saldivar PA-C Work Phone: [employer] [facility] Start: 01-04-2024 End: 01-04-2024 Office outpatient visit 25 minutes Leonora Saldivar PA-C Work Phone: [facility]. Start: 01-03-2024 End: 01-03-2024 Patient encounter procedure LINA Saldivar Work Phone: [facility]Pulmonary [facility] Work Phone: Start: 12-13-2023 Non-patient / Non-visit Dr. Jaylyn Adam Work Phone: [facility] Start: 12-13-2023 End: 12-13-[address] Carlin Adam Work Phone: [facility] Work Phone: Start: 12-13-2023 End: 12-13-[address] Carlin Adam Work Phone: [facility]-Cardiovascula r Services Work Phone: Start: 11-03-2023 End: 11-03-[address] Carlin Adam Work Phone: [facility] Work Phone: Start: 10-26-2023 Non-patient / Non-visit Dr. Jaylyn Adam Work Phone: [facility] Start: 10-25-2023 End: 10-25-[address] Carlin Adam Work Phone: [facility] Work Phone: Start: 10-25-2023 End: 10-25-[address] Carlin Adam Work Phone: [facility]-Pulmonary Services/Neurology Work Phone: Start: 09-15-2023 End: 09-15-[address] Carlin Adam Work Phone: [facility] Work Phone: Start: 08-27-2023 End: 08-27-2023 Medication Leonora MILLS-C Work Phone: [employer] Start: 08-27-2023 End: 08-27-2023 Medication Leonora Saldivar PA-C Work Phone: [employer] Start: 08-26-2023 End: 08-26-2023 ambulatory [facility] Start: 08-09-2023 End: 08-09-2023 Office outpatient visit 40 minutes Leonora Saldivar PA-C Work Phone: [employer] Start: 07-22-2023 End: 07-22-2023 Orders Leonora Saldivar PA-C Work Phone: [employer] Start: 07-19-2023 End: 07-19-2023 Medication Leonora Saldivar PA-C Work Phone: [employer] Start: 07-13-2023 End: 07-13-2023 Patient encounter procedure Leonora Saldivar PA-C Work Phone: [employer] Start: 07-08-2023 ambulatory [facility] Start: 07-08-2023 End: 07-08-2023 ambulatory [facility] Start: 06-11-2023 End: 06-14-2023 Periodic preventive med est patient 40-64yrs Leonora Saldivar PA-C Work Phone: [employer] Start: 06-11-2023 End: 06-14-2023 Physical examination Leonora Saldivar PA-C Work Phone: [employer]; [employer] Start: 05-20-2023 End: 05-20-2023 Orders Leonora Saldivar PA-C Work Phone: [employer] Start: 05-19-2023 End: 05-19-2023 Orders Leonora Saldivar PA-C Work Phone: [employer] Start: 04-26-2023 End: 06-19-2023 Orders Leonora Saldivar PA-C Work Phone: [employer] Start: 10-15-2021 End: 10-15-2021 Office outpatient visit 15 minutes Leonora Saldivar PA-C Work Phone: [employer] Start: 08-04-2021 End: 08-04-2021 Office outpatient visit 15 minutes Leonora Saldivar PA-C Work Phone: [employer] Start: 06-16-2019 End: 06-16-2019 Orders Leonora Saldivar PA-C Work Phone: [employer] Start: 01-26-2019 End: 01-26-2019 Office outpatient visit 15 minutes Leonora Saldivar PA-C Work Phone: [employer] Start: 01-12-2019 End: 01-12-2019 Historical Summary Leonora Saldivar PA-C Work Phone: [employer] Start: 11-29-2018 End: 11-29-2018 Office outpatient visit 15 minutes Leonora Saldivar PA-C Work Phone: [employer] Start: 10-05-2018 End: 10-05-2018 Telephone follow-up Leonora Saldivar PA-C Work Phone: [employer] Start: 08-26-2018 End: 08-26-2018 Office outpatient visit 15 minutes Leonora Saldivar PA-C Work Phone: [employer] Start: 06-03-2018 End: 06-03-2018 Office outpatient visit 15 minutes Leonora Saldivar PA-C Work Phone: [employer] Start: 05-27-2018 End: 05-27-2018 Office outpatient visit 15 minutes Leonora Saldivar PA-C Work Phone: [employer] Start: 01-25-2017 End: 01-25-2017 Orders Leonora Saldivar PA-C Work Phone: [employer] Start: 01-13-2017 End: 01-13-2017 Orders Leonora Saldivar PA-C Work Phone: [facility] Start: 01-05-2017 End: 01-05-2017 Orders Leonora Saldivar PA-C Work Phone: [facility]. Start: 01-04-2017 End: 01-04-2017 Patient encounter procedure Leonora Saldivar PA-C Work Phone: [facility]. Start: 01-04-2017 End: 01-04-2017 Patient encounter status Leonora Saldivar PA-C Work Phone: [employer]; [facility]. Start: 12-12-2015 End: 12-12-2015 Medication Leonora Saldivar PA-C Work Phone: [facility]. Start: 12-09-2015 End: 12-09-2015 Office outpatient visit 15 minutes Leonora Saldivar PA-C Work Phone: [employer] Start: 10-09-2015 End: 10-09-2015 Patient encounter procedure Leonora Saldivar PA-C Work Phone: [employer] Start: 05-24-2014 End: 05-24-2014 Orders Leonora Saldivar PA-C Work Phone: [employer] Start: 04-24-2014 End: 04-24-2014 Orders Leonora Saldivar PA-C Work Phone: [employer] Start: 03-20-2014 End: 03-20-2014 Patient encounter procedure Leonora Saldivar PA-C Work Phone: [employer] Start: 02-26-2012 End: 02-26-2012 Patient encounter procedure Leonora Saldivar PA-C Work Phone: [employer] Start: 02-26-2012 End: 02-26-2012 Routine gynecological examination Leonora Saldivar PA-C Work Phone: [employer]; [employer] [facility]. Start: 02-12-2012 End: 02-12-2012 Medication Leonora Saldivar PA-C Work Phone: [facility] [employer]. Start: 02-08-2012 End: 02-08-2012 Historical Summary Leonora Saldivar PA-C Work Phone: [employer] Start: 02-08-2012 End: 02-08-2012 Patient encounter procedure Leonora Saldivar PA-C Work Phone: [employer] Start: 05-12-2011 End: 05-12-2011 Patient encounter procedure Leonora Saldivar PA-C Work Phone: [facility] Follow-up encounter Leonora J Be an PA-C Work Phone: [facility].; [employer] [facility] Patient encounter status Lady Mcbride [facility] [employer] [facility].; [employer] [facility] Patient encounter status Bridget Smith MA [facility].; [employer] [facility] Physical examination Leonora Sherman ean PA-C Work Phone: [facility].; [employer] [facility] Routine gynecologica l examination Lady Bowers LPN [facility] [facility].; [facility] Procedures Date Procedure Procedure Detail Performing Clinician Start: 05-30-2025 End: 05-30-2025 Most Recent Cardio Labs Leonora Saldivar PA- C Work Phone: Start: 05-30-2025 End: 05-30-2025 Most Recent Cardio Report Leonora Saldivar PA-C Work Phone: Start: 04-23-2025 End: 04-23-2025 Screening colonoscopy Elizabeth Beard MA Comment on above: [facility], polyps repeat 5 -10 years Start: 04-23-2025 Colonoscopy Leonora Be an PA Work Phone: Start: 01-08-2025 End: 01-09-2025 Radex foot complete minimum 3 views Leonora J Saldivar PA-C Work Phone: Start: 12-11-2024 CT of chest Leonora arcos PA Work Phone: Start: 07-13-2024 End: 07-12-2024 Depression screening Leonora Saldivar PA-C Work Phone: Start: 07-13-2024 End: 07-12-2024 Pos clin depres scrn f/u doc Leonora Saldivar PA-C Work Phone: Start: 07-13-2024 End: 07-12-2024 Scr dep neg, no plan reqd Leonora Saldivar PA-C Work Phone: Start: 06-23-2024 End: [...] Start: 06-03-2018 End: 11-17-2018 Spmtry w/vc expiratory tobin w/wo mxml vol vntj Carlin Adam MD Work Phone: Start: 05-27-2018 End: 05-27-2018 Dexamethasone sodium phos Carlin Adam MD Work Phone: Start: 05-27-2018 End: 05-31-2018 Radiologic exam chest 2 views Carlin Adam MD Work Phone: Start: 01-04-2017 End: 03-07-2020 Myocardial spect multiple studies Rubio Craft NP-C Work Phone: Start: 01-04-2017 End: 01-04-2017 Ecg routine ecg w/least 12 lds i&r only Rubio Craft NP-C Work Phone: Start: 12-09-2015 End: 12-09-2015 Chest [...] section Previous delivery, antepartum condition or complication Lauritaanuja [employer] MATE RELIEF Work Phone: section Elizabeth robins MA Comment on above: 2006 section Elizabeth robins MA Comment on above: 2006 section Bridget cary MA Comment on above: 2006 section Radha Lyons RN Comment on above: 2006 section Elizabeth robins MA Comment on above: 2006 H/O: hysterectomy H/O: hysterectomy Dr. Mich Adam Work Phone: History of total hysterectomy S/P total hysterectomy Leonora J Saldivar PA-C Work Phone: History of total hysterectomy S/P total hysterectomy Leonora Saldivar PA-C Work Phone: History of total hysterectomy S/P total hysterectomy Elizabeth Beard MA History of total hysterectomy S/P total hysterectomy Bridget Smith MA History of total hysterectomy S/P total hysterectomy Radha Lyons RN History of total hysterectomy S/P total hysterectomy Elizabeth Beard MA Ligation of fallopia n tube Elizabeth Beard MA Ligation of fallopia n tube Elizabeth Baerd MA Ligation of fallopia n tube Bridget Smith MA Ligation of fallopia n tube Radha Lyons RN Ligation of fallopia n tube Elizabeth Beard MA Total hysterectomy Elizabeth H ood MA Total hysterectomy Elizabeth H ood MA Total hysterectomy Bridget benitez MA Total hysterectomy Radha Lyons RN Total hysterectomy Elizabeth H ood MA Plan of Treatment Date Care Activity Detail Author Start: 07-22-2033 Urine microalbumin profile DTaP,Tdap,Td Vaccine (2 - Td or Tdap) [facility] Start: 07-16-2025 Patient encounter procedure Medical; PHYSICAL - AWV [facility] Start: 16-Jul-2025 10:00-04:00 BENOIT Saldivar Appointment Request [facility] Start: 07-02-2025 Blood count complete auto&auto difrntl wbc CBC, PLATELETS & AUT DIFF (F) (38086) Start: 02-Jul-2025 Request [employer]; [employer] Start: 07-02-2025 Comprehensive metabo lic panel CMP w/ GFR* ([id number]) Start: 02-Jul-2025 Request [employer]; [facility] Start: 07-02-2025 Hemoglobin glycosyla aura a1c HEMOGLOBIN A1C* (34060) Start: 02-Jul-2025 Request [employer]; [facility] Start: 07-02-2025 Lipid panel LIPID PANEL ([id number]) Start: 02-Jul-2025 Request [employer]; [facility]. Start: 07-02-2025 Nursing evaluation o f patient and report [facility] Start: 05-30-2025 Evaluation of diagno stic study results [facility] Start: 04-23-2025 Colsc flx w/rmvl of tumor polyp lesion snare tq COLONOSCOPY W/LESION REMOVAL [facility] Start: 04-23-2025 Patient discharge [facility] Start: 04-16-[address] [facility] Work Phone: Start: 04-01-2025 Polysomnography [facility] Start: 03-29-2025 End: 03-29-2025 Patient encounter procedure 03/29/2025 11:00 AM EDT Office Visit OB/Gynecology [address] [place], [place] [id number] Laurita Jamison APRN.MATE RELIEF [address] [place] [address] Annual OB/Gynecology Comment on above: Annual Start: 03-23-2025 Echo tthrc r-t 2d w/wom-mode compl spec&colr d TTE W/DOPPLER COMPLETE [facility] Start: 01-08-2025 Radex foot complete minimum 3 views Foot, Right Complete x-ray ([id number]) Start: 08-Jan-2025 Intent [facility] Start: 01-08-2025 Patient encounter procedure Medical; EXTENDED RTN - 6 MO RTN [facility]. Start: 08-Jan-2025 10:50-05:00 BENOIT Saldivar Appointment Request [facility] Start: 07-13-2024 Patient encounter procedure Medical; PHYSICAL - AWV [facility]. Start: 13-Jul-2024 09:50-04:00 BENOIT Saldivar Appointment Request [facility] Start: 07-09-2024 Covid-19 Vaccine () Covid-19 Vaccine () [facility] Start: 07-09-2024 Influenza vaccination C [facility] Start: 07-03-2024 Patient encounter procedure Medical; PHYSICAL - AWV [facility]. Start: 03-Jul-2024 10:50-04:00 BENOIT Saldivar Appointment Request [facility] Start: 06-23-2024 Blood count complete auto&auto difrntl wbc CBC, PLATELETS & AUT DIFF (F) ([id number]) Start: 23-Jun-2024 Request [facility] Start: 06-23-2024 Comprehensive metabo lic panel CMP w/ GFR* ([id number]) Start: 23-Jun-2024 Request [facility] Start: 06-23-2024 Lipid panel LIPID PANEL (8 [id number]) Start: 23-Jun-2024 Request [facility] Start: 06-23-2024 Nursing evaluation o f patient and report Medical; Nurse visit - fasting labs - RJB [facility]. Start: 23-Jun-2024 08:20-04:00 NURSE, FLOAT Appointment Request [facility]. Start: 05-29-2024 End: 08-28-2024 25-hydroxyvitamin D3 [Mass/volume] in Serum or Plasma VITAMIN D 25 HYDROXY Lab Routine Encounter for vitamin deficiency screening Expected: 05/29/2024, Expires: 08/28/2024 [facility] Work Phone: Comment on above: Expected: 05/29/2024 , Expires: 08/28/2024 Start: 05-29-2024 End: 08-28-2024 Comprehensive metabolic 2000 panel - Serum or Plasma COMPREHENSIVE METABOLIC PANEL Lab Routine Screening for diabetes mellitus Screening for metabolic disorder Expected: 05/29/2024, Expires: 08/28/2024 [facility] Comment on above: Expected: 05/29/2024 , Expires: 08/28/2024 Start: 05-29-2024 End: 08-28-2024 Follitropin [Units/volume] in Serum or Plasma FOLLICLE STIMULATING HORMONE Lab Routine Hot flashes Expected: 05/29/2024, Expires: 08/28/2024 [facility] Comment on above: Expected: 05/29/2024 , Expires: 08/28/2024 Start: 05-29-2024 End: 08-28-2024 Hemoglobin A1c in Blood HEMOGLOBIN A1C Lab Routine Screening for diabetes mellitus Expected: 05/29/2024, Expires: 08/28/2024 [facility] Comment on above: Expected: 05/29/2024 , Expires: 08/28/2024 Start: 05-29-2024 End: 08-28-2024 Insulin [Units/volume] in Serum or Plasma INSULIN ASSAY BLOOD Lab Routine Screening for diabetes mellitus Expected: 05/29/2024, Expires: 08/28/2024 [facility] Comment on above: Expected: 05/29/2024 , Expires: 08/28/2024 Start: 05-29-2024 End: 08-28-2024 Lipid 1996 panel - Serum or Plasma LIPID PANEL BASIC Lab Routine Screening cholesterol level Expected: 05/29/2024, Expires: 08/28/2024 [facility] Comment on above: Expected: 05/29/2024 , Expires: 08/28/2024 Start: 05-29-2024 End: 08-28-2024 Thyrotropin [Units/volume] in Serum or Plasma THYROID STIMULATING HORMONE Lab Routine Unintended weight gain Expected: 05/29/2024, Expires: 08/28/2024 [facility] Comment on above: Expected: 05/29/2024 , Expires: 08/28/2024 Start: 05-21-2024 Screening for malign ant neoplasm of breast Mammogram Screening [facility] Start: 05-01-2024 End: 05-01-2024 Patient encounter procedure 05/01/2024 12:45 PM EDT Office Visit OB/Gynecology [address] [place] [address] Laurita Jamison, FELICITAS.MATE RELIEF [address] [place] [address] Follow up OB/Gynecology Comment on above: Follow up Start: 01-04-2024 Patient encounter procedure Medical; EXTENDED RTN - [facility] rtn [facility] Start: 04-Jan-2024 10:50 BENOIT Saldivar [facility]ointment [facility] Start: 11-08-2023 Behavioral Health Screening Behavioral Health Screening [facility] Start: 11-03-2023 Patient referral [facility] Work Phone: Start: 07-09-2023 Covid-19 Vaccine () Covid-19 Vaccine () [facility] Start: 05-19-2023 Blood count complete auto&auto difrntl wbc [facility] Start: 07-03-2022 Diabetes Screening Diabetes Screenin g [facility] Start: 01-12-2022 Screening for malign ant neoplasm of cervix Pap Testing [facility] Start: 01-13-2020 Screening for malign ant neoplasm of cervix Cervical Cancer Screening [facility] Start: 2019 Lipid panel Lipid Screening [facility] Start: 2019 Screening for malign ant neoplasm of colon [facility] Start: 2004 Screening for malign ant neoplasm of cervix HPV Testing [facility] Start: 2004 Zoledronic acid therapy Alpha- 1 Antitrypsin Deficiency Screening [facility] Start: 1993 Hepatitis B Vaccine (1 of 3 - 19+ 3-dose series) Hepatitis B Vaccine (1 of 3 - 19+ 3-dose series) [facility] Start: 1992 Annual PCP Team [employer] ariella Disease Visit Annual PCP Team Chronic Disease Visit [facility] Start: 1992 Anxiety Screening Anxiety Screening [facility] Start: 1992 Depression Screening Depression Scre ening [facility] Start: 1992 HIV screening HIV Screening [facility] Start: 1980 Pneumococcal vaccination Pneum ococcal Vaccine (1 of 2 - PCV) [facility] Basic metabolic 2008 panel with ionized calcium - Serum or Plasma [facility] CBC W Auto Different ial panel - Blood [facility] CT Chest [facility] Natriuretic peptide. B prohormone N-Terminal [Mass/volume] in Serum or Plasma [facility] Patient referral [facility] Work Phone: Radionuclide imaging of perfusion of myocardium under exercise stress [facility] dexAMETHasone so d phos (bulk) 100 % powder Ordered: 27-May-2018 MD Carlin Adam [facility], [facility].; [facility], [facility] Immunizations Immunization Date Immunization Notes Care Provider Fa bell 07-22-2023 tetanus toxoid, redu beatriz diphtheria toxoid, and acellular pertussis vaccine, adsorbed Leonora Saldivar PA-C Work Phone: [facility], [employer]. Comment on above: Site: Right Lori watts: * Tdap (06/13/21) 01-24-2009 tetanus and diphther ia toxoids, adsorbed, preservative free, for adult use (2 Lf of tetanus toxoid and 2 Lf of diphtheria toxoid) Loenora Saldivar PA-C Work Phone: [facility], [employer]. Payers Date Payer Category Payer Self-pay [id number] 2022 Medicaid UHC MEDICAID UHC COMM[employer]ITY [employer]AN MEDICA[place] OF [place] [id number] 2022-Present [phone] [address] [place] [address] Medicaid [id number] 2022 Unknown [id number] 1974 Unknown [id number] 2.16.840.1.047262.3.579.2. 297 1974 Unknown [id number] 2.16.840.1.420494.3.579.2. 297 1974 Unknown [id number] 2.16.840.1.520940.3.579.2. 297 1974 Unknown [id number] 2.16.840.1.238116.3.579.2. 297 1974 Unknown [id number] 2.16840.1.323872.3.579.2. 651 1974 Unknown [id number] 2.16.840.1.765306.3.579.2. 651 1974 Unknown [id number] 2.16.840.1.346468.3.579.2. 651 Private Health Insurance [id number] Unknown [facility] Unknown [id number] 2.16840.1.408283.3.579.2. 462 Unknown [id number] 2.16.840.1.893513.3.579.2. 462 Unknown [id number] 2.16.840.1.230122.3.579.2. 462 Unknown [id number] 2.16.840.1.613089.3.579.2. 462 Unknown [id number] 2.16.840.1.375736.3.579.2. 462 Unknown [id number] 2.16840.1.726255.3.579.2. 462 Unknown [id number] 2.16.840.1.361651.3.579.2. 462 Unknown [id number] 2.16.840.1.007079.3.579.2. 462 Unknown [id number] 2.16.840.1.004658.3.579.2. 462 Unknown [id number] 2.16.840.1.027265.3.579.2. 462 Unknown [id number] 2.16.840.1.597930.3.579.2. 462 Unknown [id number] 2.16.840.1.181202.3.579.2. 462 Unknown [id number] 2.16.840.1.365128.3.579.2. 462 Unknown [id number] 2.16.840.1.507739.3.579.2. 462 Unknown [id number] 2.16.840.1.974643.3.579.2. 462 Unknown [id number] 2.16.840.1.252708.3.579.2. 462 Unknown [id number] 2.16.840.1.135524.3.579.2. 462 Social History Date Type Detail Facility Start: 09-15-2023 End: 01-03-2024 Tobacco smoking status DCIS Unknown if ever smoked [facility] Start: 01-10-2019 Non-smoker [facility] Start: 1975 Sex Assigned At Female [facility] Alcohol Use: Alcohol Use: ; Occasional alcohol use. 7 or fewer drinks per week. [facility]. Start: 03-27-2024 End: 07-24-2024 Caffeine Use Caffeine Use [facility] [employer], [employer] Tobacco Use: Tobacco Use: ; F ormer smoker. [facility] [employer] Occasional alcohol use [facility] [employer] [facility] Work Phone: Smokes tobacco daily [facility] Work Phone: Smokes 1 pack of cigarettes per day [facility].; [facility]. Work Phone: Smoker [facility].; [facility]. Work Phone: Start: 03-27-2024 End: 04-23-2025 Ex-smoker [facility].; [facility]. Work Phone: History of tobacco use Cigarette Smoker [facility] History of tobacco use Passive smoker [facility] Start: 03-27-2024 End: 07-24-2024 Tobacco use and exposure Smokeless tobacco non-user [facility] Start: 03-27-2024 End: 07-24-2024 Alcohol intake Current non-drinker of alcohol (finding) [facility] Start: 03-27-2024 End: 07-24-2024 Tobacco use panel [facility] National Score (1-100), lower number is lower risk 83 [facility] Start: 1975 Sex Assigned At Not on file [facility] NEGATED: Highlighted row Not [facility] Goals Date Patient Goal Desired Activity /State Mental Status Date Assessment Result Facility 04-23-2025 Cognitive function Voice/Name [facility] Work Phone: Clinical Notes 10-26-2023 to 04-23-2025 Note Date & Type Note Facility 04-23-2025 Consult note [facility] 04-23-2025 History and physi norbert note Note Date/Time April 23, 2025 7:34am [facility] Medical Records Department [address] [place] [address] History & Physical Exam 04/23/25 0726 MR#: [id number] Acct: [id number] Name: LILLIE HOLLAND Rep #:[id number] : 1975 49 From: Maddy Amador MD PCP: LINA Mckeon Status:[facility] Location: [place] [address] HPI - General General Date of Service: 04/23/25 HPI Narrative LILLIE HOLLAND, is a 49 F who presents for screening colonoscopy. Does not remember having a colonoscopy however records states she had one in January 2019 had a rectal polyp at that time with Dr. Stevens. Also had an EGD at that time. Patient denies any family history of colon cancer. Patient has bowel movementsdaily denies any blood. Patient denies any chronic abdominal pain/nausea/vomiting. Patient's reflux is controlled with omeprazole. [facility] Medical History (Updated 04/23/25 @ 07:[address] Maddy Amador MD) Wears glasses Post-menopausal Marijuana use Alcohol use [...] obstructive pulmonary disease) Vasculitis Cough Home Medications ?Medication ?Instructions ?Recorded ?Last Taken ?Type omeprazole 20 mg capsule,delayed 20 mg PO DAILY Unknown History release inhalational spacing device (Space #1 ea 11/03/23 Unkn own History Chamber) multivitamin with minerals-folic 1 tab PO DAILY Unknown History acid 0.4 mg tablet zolpidem 5 mg tablet 5 mg PO QHS PRN sleep Unknown History albuterol sulfate 90 mcg/actuation 2 puff inhalation Q 4H PRN 03/05/25 Unknown Rx aerosol inhaler shortness of breath or wheez ing #8.5 grams fluticasone fur. 100 mcg-umeclid 1 inh inhalation QDAY #60 ea 04/10/25 04/23/25 05:00 Rx 62.5 mcg-vilant 25 mcg inhalat.powder (Trelegy Ellipta) Marijuana Medical Card .Route 04/16/25 Unknown Hist ory calcium 600 mg (as 1 tab PO DAILY 04/19/25 Unkn own History carbonate)-vitamin D3 5 mcg (200 unit) tablet (Calcium 600 + D(3)) cetirizine 10 mg tablet (24Hour 10 mg PO DAILY PRN all ergy symptoms 04/19/25 Unknown History Allergy) docusate sodium 100 mg capsule 100 mg PO DAILY 5 Unknown History (Col-Rite) oxybutynin chloride 10 mg 10 mg PO BID 04/19/25 Unknow n History tablet,extended release 24 hr vitamin B complex (Complex B-100 1 tab PO DAILY Unknown History tablet,extended release) Allergy/AdvReac Type Severity Reaction Status Date / Time No Known Allergies Allergy Verified 04/23/25 06:58 Family History Mother Arthritis Diabetes Surgical History (Updated 04/19/25 @ 12:08 by Rosalina Sauer) Hx of wisdom tooth extraction History of esophagogastroduodenoscopy (EGD) Hx of colonoscopy delivery delivered H/O: hysterectomy Social History Smoking Status: Former smoker quit date: 11/30/23 Tobacco: How many years used: 31 Electronic Cigarette Use: not used second hand exposure: Yes alcohol intake: current alcohol intake frequency: a few times a month substance use type: does not use caffeine: Yes frequency: does not exercise Past Medical/Surgical History Planned Operation Planned Operative Procedure(s): COLONOSCOPY-OA S.O.S: No Previous Hospitalizations/Surgeries HX Hospitalizations: Yes (NAUSEA WITH CSECTION) HX of Surgeries: X2, TUBAL LIGATION WISDOM TEETH VAGINAL HYSTERECTOMY BSO 2017 Any Problems With Anesthesia: No You/Your Family Experience Fever (Hyperthermia) With Anes: No Cholinesterase deficiency: No Cardiovascular Hx Chest Pain within Last 2 months: No (.) Hx of Irregular Heartbeat and/or Afib: Yes ( CHILD, RESOLVED) Hx Heart Attack: No Hx Congestive Heart Failure: No Hx Rheumatic Fever: No Hx Hypertension: No Hx Internal Defibrillator: No Hx Pacemaker: No Hx Cardiac Catheterization: No Hx Cardiac Surgery/Stents/Etc.: No Hx Stress Test: No (.) Hx Pain in Legs when Walking/Leg Cramps: No Respiratory Chronic Cough: No HX of Shortness of Breath: Yes (SOB WITH 2 FLIGHTS OF STAIRS) Hoarseness: No Hx Chronic Obstructive Pulmonary Disease (COPD): Yes (CHRONIC BRONCHITIS/NO INHALERS USED) Hx Asthma: No Hx Emphysema: No Hx Sleep Apnea: No Hx Respiratory Tract Infection/Cold (presently): No Do You Snore Loudly (louder than talking or can be heard): No Do You Often Feel Tired/ Fatigued/ Sleepy Dring Daytime?: No Has Anyone Observed You Stop Breathing During Sleep?: No Result (for STOP score): Negative Hx Smoking: Yes (1 PPD X 20+ YRS/QUIT 6 MONTHS AGO) Smoking Status: Former smoker Gastrointestinal Controlled With Meds: No (NO MEDS) Hx Gastrointestinal Disorders: No Hx Gastrointestinal Bleed: No Hx Ulcer: No Hx Hiatal Hernia: No Difficulty Chewing/Swallowing: No Special diet followed at home: No Hx Unplanned Weight Loss of 20#: No HX Unplanned Weight Gain of 20#: No Neurological Hx Seizures: No HX Syncope/Blackout Spells/Unconsciousness: Yes (SYNCOPE OCC.) Hx Transient Ischemic Attacks (TIA): No Hx Multiple Sclerosis: No Hx Parkinson's Disease: No Hx Head/Neck Injury: No Hx Headaches: Yes (OCC) Hx Back Injury/Pain: No Recent Onset of Speech Difficulty: No Restless Legs: Yes (.) Does patient have nerve stimulator: No Blood Disorder Hx Leukemia: No Bleeding Tendencies: Yes (BRUISE EASILY) Hx Deep Vein Thrombosis: No Hx High Cholesterol: No Blood Transmitted Disease: No Hx Hepatitis: No Hx Cirrhosis: No Hx Anemia: No Hx Blood Disorders: No Reproduction : No Is Patient Lactating: No Hx Hysterectomy: Yes Hx Tubal Ligation: Yes Are You Post Menopause: No Genitourinary Hx Renal Disease: No Musculoskeletal Hx Arthritis: No Hx Rheumatoid Arthritis: No Hx Gout: No Recent Onset of an Orthopedic Problem: No Endocrine Hx Diabetes: No Thyroid Disease: No Hx Steroid Therapy: Yes (CURRENTLY ON PREDNISONE FOR PAIN TO RIGHT SHOULDER/ELBOW) Psycho/Social Hx Substance Use: No Hx Alcohol Use: Yes (OCC) Hx Anxiety: No Hx Depression: No Mental Illness: No Hx Dementia: No Miscellaneous Hx Cancer: No Recent Exposure to Contagious Disease: No Hx of C-Diff: No Any Loose Teeth: No Allergies No Known Allergies Allergy (Verified 04/23/25 06:58) Discharge Is Pt Admitted From a Mcc, or a Mcc: No After D/C, Where Do you Plan to Go: Return Home Vital Signs Vital Signs Vital Signs: 04/23/25 06:59 04/23/25 06:59 Temperature 97 F L Temperature Source Temporal Pulse Rate 72 Respiratory Rate 16 Respiratory Pattern Normal Blood Pressure 149/84 H Blood Pressure Mean 105 Blood Pressure Source Monitor Blood Pressure Position Sitting Blood Pressure Location Left Arm Pulse Ox 100 Oxygen Delivery Method Room Air Weight Weight: 180 lb 12.465 oz Body Mass Index (BMI) 32.0 Physical Exam Const alert, oriented x3 and no apparent distress HEENT normocephalic and head/scalp atraumatic Resp normal respiratory effort Cardio regular rate GI soft to palpation and non-tender; Negative for non-distended Palpation: Negative for guarding Extremity no clubbing, cyanosis or edema Skin no rashes or lesions noted Neuro CN's II-XII intact bilaterally Psych mental status grossly normal Assessment & Plan Assessment/Plan (1) Hx of colonic polyp: Surgery Risks - Colonoscopy I discussed with the patient the risks of the procedure: Yes Risks Include but are not Limited To: Risks include but are not limited to: Bleeding, perforation requiring further surgery, inability to complete colonoscopy requiring barium enema. 04/23/25 0734 <Electronically signed by Maddy Amador MD> Cosigner Signature (if applicable): CC: Dr. Maddy Amador MD; LINA Mckeon~ Signed [facility] Work Phone: 1(860) 702-901506-16-2025 Procedure note [facility] Medical Records Department [address] [place] [address] Colonoscopy Report MR#: [id number] Acct: [id number] Name: LILLIE HOLLAND Rep #:[id number] : 1975 49 From: Maddy Amador MD PCP: LINA Mckeon Status:[facility] Patient Name: Lillie Holland Procedure Date: 04/23/2025 8:05 AM Date of : 1975 Age: 49 Procedure: Colonoscopy Indications: High risk colon cancer surveillance: Personal history of colonic polyps Providers: Maddy Amador MD Referring MD: Lina Mckeon Medicines: Monitored Anesthesia Care Patient Profile: This is a 49 year old female. Last Colonoscopy: January 2019. Complications: No immediate complications. Procedure: Pre-Anesthesia Assessment: - Prior to the procedure, a History and Physical was performed, and patient medications and allergies were reviewed. The patient's tolerance of previous anesthesia was also reviewed. The risks and benefits of the procedure and the sedation options and risks were discussed with the patient. All questions were answered, and informed consent was obtained. Prior Anticoagulants: The patient has taken no anticoagulant or antiplatelet agents. ASA Grade Assessment: Per anesthesia. After reviewing the risks and benefits, the patient was deemed in satisfactory condition to undergo the procedure. After I obtained informed consent, the scope was passed under direct vision. Throughout the procedure, the patient's blood pressure, pulse, and oxygen saturations were monitored continuously. The Colonoscope was introduced through the anus and advanced to the cecum, identified by the appendiceal orifice, ileocecal valve and palpation. The colonoscopy was performed without difficulty. The patient tolerated the procedure well. The quality of the bowel preparation was good. Scope In: 8:22:59 AM Scope Withdrawal Time 0 hours 9 minutes 19 seconds Scope Out: 8:36:59 AM Total Procedure Duration Time 0 hours 14 minutes 0 seconds Findings: The perianal and digital rectal examinations were normal. A less than 5 mm polyp was found in the sigmoid colon. The polyp was semi-sessile. The polyp was removed with a hot snare. Resection and retrieval were complete. The exam was otherwise without abnormality on direct and retroflexion views. Impression: - One less than 5 mm polyp in the sigmoid colon, removed with a hot snare. Resected and retrieved. - The examination was otherwise normal on direct and retroflexion views. Recommendation: - Discharge patient to home. - Resume previous diet. - Continue present medications. - Await pathology results. - Repeat colonoscopy in 5-10 years for surveillance based on pathology results. Procedure Code(s): --- Professional --- 97053, PT, Colonoscopy, flexible; with removal of tumor(s), polyp(s), or other lesion(s) by snare technique Diagnosis Code(s): --- Professional --- Z86.010, Personal history of colonic polyps D12.5, Benign neoplasm of sigmoid colon CPT copyright 2021 [employer]. All rights reserved. The codes documented in this report are preliminary and upon remote inpatient coder review may be revised to meet current compliance requirements. MD Maddy Jc MD 04/23/2025 8:41:10 AM This report has been signed electronically. Number of Addenda: 0 Note Initiated On: 04/23/2025 8:05 AM 04/23/25 0841 Date _ Maddy Amador MD Cosigner Signature: Date (if indicated) CC: Dr. Maddy Amador MD; LINA Mckeon ~ Date Dictated: 04/23/25804 Date Transcribed: Demolition Expert: TR Signed [facility]06-16-2025 Procedure note [facility] Medical Records Department [address] [place] [address] Operative Report - CC Letter MR#: [id number] Acct: [id number] Name: LILLIE HOLLAND Rep #:[id number] : 1975 49 From: Maddy Amador MD PCP: LINA Mckeon Status[place] 04/23/2025 Lian Mckeon Re : Colonoscopy procedure for Lillie Holland Clairer Bill This procedure was performed on Wednesday, April 23, 2025. My impressions and recommendations are as follows: Impressions : - One less than 5 mm polyp in the sigmoid colon, removed with a hot snare. Resected and retrieved. - The examination was otherwise normal on direct and retroflexion views. Recommendations : - Discharge patient to home. - Resume previous diet. - Continue present medications. - Await pathology results. - Repeat colonoscopy in 5-10 years for surveillance based on pathology results. My findings are described in the full procedure note, which is enclosed. If I can be of further assistance, please feel free to contact me at Doctor phone number(s): , Work: . Sincerely, MD Maddy Jc MD 04/23/2025 8:41:10 AM This report has been signed electronically. 04/23/25840 Date _ Maddy Amador MD Cosigner Signature: Date (if indicated) CC: Dr. Maddy Amador MD; LINA Mckeon ~ Date Dictated: 04/23/25804 Date Transcribed: Demolition Expert: TR Signed [facility]06-16-2025 Consult note [facility] Medical Records Department [address] [place] [address] Pre-Anesthesia Evaluation 04/23/25 0747 MR#: [id number] Acct: [id number] Name: LILLIE HOLLAND Rep #:[id number] : 1975 49 From: Yovani Walker MD PCP: LINA Mckeon Status:REG SD Y Race: C Location: [place] [address] ASA Classification* ASA Classification ASA Classification: 3 Assessment & Plan Anesthesia* Anesthesia Assessment Anesthesia Assessment: Discussed sedation and/or anesthesia options, risks, benefits, and alternatives with patient/parents/legal guardian/POA. Questions invited. The patient/parents/legal guardian/POA seems to understand and agrees to proceedwith anesthesia plan. Reviewed the physical assessment, medical history, allergy history and patient home medications list prior to surgery/procedure/anesthetic and documented any changes. Performed airway and anesthesia risk assessments. Anesthesia Type Anesthesia Type: MAC History Source History Obtained from:: Patient and Chart Anesthesia Focused Assessment* Temperature: 97 F Pulse Rate: 72 Blood Pressure: 149/84 Respiratory Rate: 16 Pulse Ox: 100 Oxygen Delivery Method: Room Air Airway Assessment Mouth opens: >3 cm Mallampati Score: III Teeth Condition: Missing (Patient has couple missing teeth.) Neck Range of motion (ROM): Full ROM Labs Anesthesia Preop lab: CBC WBC 9.6 K/mm3 (4.4-11.0) 06/08/17 06:00 06/08/17 RBC 4.04 M/mm3 (4.2-5.4) L 06/08/17 06:00 06/08/17 Hgb 12.2 g/dl (12.0-15.0) 06/08/17 06:00 06/08/17 Hct 38.1 % (37-47) 06/08/17 06:00 06/08/17 Plt Count 179 K/mm3 (150-450) 06/08/17 06:00 06/08/17 CHEMISTRY Creatinine 0.71 mg/dL (0.55-1.02) 06/08/17 06:00 06/08/17 COAG PT 12.7 SECONDS (11.7-14.9) 04/21/17 11:48 Pre-Assessment Diagnosis/Proposed Procedure Planned Operative Procedure(s): COLONOSCOPY-OA Anesthesia History Anesthesia History - reconciliation clerk: Anesthesia History - reconciliation clerk Hx Hospitalization Yes: NAUSEA WITH CSECTION 04/23/25 07:30 Any Problems With Anesthesia No 04/23/25 07:30 Cholinesterase deficiency No 04/23/25 07:30 You/Your Family Experience No 04/23/25 07:30 fever (hyperthermia) with Relationship Recent Exposure to Contagious No 04/23/25 07:30 Disease Does patient have nerve No 04/23/25 07:30 stimulator Patient instructed to have device shut off --Does patient have Pacemaker No 04/23/25 06:59 or ICD? When Was Last Pacemaker Check QUESTION #4 FULL TEXT: You/Your Family Experience fever (hyperthermia) with Anesthesia Last Oral Intake Last Oral intake: Last Oral Intake NPO since 05:30 04/23/25 06:59 Meds taken in AM with sips of No 04/23/25 06:59 water? Meds patient instructed to take am of surgery Any additional information?: Yes NPO since: 05:30 (Patient had black coffee at 5:30 AM.) Meds takenin AM with sips of water?: Yes PONV PONV - reconciliation clerk: PONV - reconciliation clerk Female Yes 04/19/25 12:09 HX of Motion Sickness No 04/19/25 12:09 HX of N/V After Surgery No 04/19/25 12:09 Non-Smoker Yes 04/19/25 12:09 Duration of Surgery greater No 04/19/25 12:09 than 60 minutes Number of Risk Factors 2 04/19/25 12:09 PONV Score Moderate Risk 04/19/25 12:09 Height & Weight Height & Weight: Anesthesia: Height & Weight Height 5 ft 3 in 04/23/25 06:59 Weight: 82 kg 04/23/25 06:59 Body Mass Index (BMI) 32.0 04/23/25 06:59 Respiratory Assessment Respiratory Assessment - reconciliation clerk: Respiratory Tract Infection Hx - reconciliation clerk Hx Respiratory Tract Infection No 04/23/25 07:30 STOP Sleep Apnea STOP Sleep Apnea - reconciliation clerk: STOP Sleep Apnea - reconciliation clerk Hx Hypertension No 04/23/25 07:30 Hx Sleep Apnea No 04/23/25 07:30 CPAP BIPAP Do you snore loudly (louder No 04/23/25 07:30 than talking or can be heard Do you often feel tired/ No 04/23/25 07:30 fatigued/ sleepy during daytime? Has anyone observed you stop No 04/23/25 07:30 breathing during sleep? STOP Results Negative 04/23/25 07:30 QUESTION #5 FULL TEXT : Do you snore loudly (louder than talking or can be heard through closeddoors)? Tobacco Use History Tobacco Use History - reconciliation clerk: Tobacco Use History - reconciliation clerk Tobacco Use Smoking Status Former smoker 04/23/25 07:30 Hx Tobacco Use Yes 04/19/25 12:09 Years Smoking Packs Smoked per Day Smoking Cessation Date was Yes - quit smoking within 15 04/19/25 12:09 within the last 15 years years Hx Smoking Cessation Date Hx Smoking Cessation Counseling Hematologic Medial History Hematologic Hx - reconciliation clerk: Hematologic Medical Hx - bulk pigment reducer Hx of Blood Transfusion No 04/19/25 12:09 Hx of Transfusion in last 3 No 04/19/25 12:09 Months Date of Last Transfusion (if within last 3 months) Ever experience any problems No 04/19/25 12:09 with transfusion(s)? Specify any problems Hx of Preganancy in last 3 No 04/19/25 12:09 Months Nurse Filling Out Transfusion VCHRISTIN 04/19/25 12:09 & Questions: Date: 04/19/25 04/19/25 12:09 Time: 12:10 04/19/25 12:09 Patient unable to answer at this time (ie. confused, unrespo /Reproduction History /Reproductive History - reconciliation clerk: /Reproductive Hx- reconciliation clerk Hx Now No 04/23/25 07:30 Gestational Age (in weeks): EDC: Hx Hx Para Hx Section SAB No 04/19/25 12:09 Active Medications Active Medications: Current Medications Generic Name Dose Route Start Last Admin Trade Name Carol PRN Reason Stop Dose Admin Lactated Ringer's 1,000 mls @ 15 mls/hr 04/23/25 07:00 04/23/25 07:14 IV 15 mls/hr .Q48H RANJANA Administration PFSH Medical History Wears glasses Post-menopausal Marijuana use Alcohol use [...] obstructive pulmonary disease) Vasculitis Cough Home Medications ?Medication ?Instructions ?Recorded ?Last Taken ?Type omeprazole 20 mg capsule,delayed 20 mg PO DAILY Unknown History release inhalational spacing device (Space #1 ea 11/03/23 Unkn own History Chamber) multivitamin with minerals-folic 1 tab PO DAILY Unknown History acid 0.4 mg tablet zolpidem 5 mg tablet 5 mg PO QHS PRN sleep Unknown History albuterol sulfate 90 mcg/actuation 2 puff inhalation Q 4H PRN 03/05/25 Unknown Rx aerosol inhaler shortness of breath or wheez ing #8.5 grams fluticasone fur. 100 mcg-umeclid 1 inh inhalation QDAY #60 ea 04/10/25 04/23/25 05:00 Rx 62.5 mcg-vilant 25 mcg inhalat.powder (Trelegy Ellipta) Marijuana Medical Card .Route 04/16/25 Unknown Hist ory calcium 600 mg (as 1 tab PO DAILY 04/19/25 Unkn own History carbonate)-vitamin D3 5 mcg (200 unit) tablet (Calcium 600 + D(3)) cetirizine 10 mg tablet (24Hour 10 mg PO DAILY PRN all ergy symptoms 04/19/25 Unknown History Allergy) docusate sodium 100 mg capsule 100 mg PO DAILY 5 Unknown History (Col-Rite) oxybutynin chloride 10 mg 10 mg PO BID 04/19/25 Unknow n History tablet,extended release 24 hr vitamin B complex (Complex B-100 1 tab PO DAILY Unknown History tablet,extended release) Allergy/AdvReac Type Severity Reaction Status Date / Time No Known Allergies Allergy Verified 04/23/25 06:58 Family History Mother Arthritis Diabetes Surgical History Hx of wisdom tooth extraction History of esophagogastroduodenoscopy (EGD) Hx of colonoscopy delivery delivered H/O: hysterectomy Social History Smoking Status: Former smoker quit date: 11/30/23 Tobacco: How many years used: 31 Electronic Cigarette Use: not used second hand exposure: Yes alcohol intake: current alcohol intake frequency: a few times a month substance use type: does not use caffeine: Yes frequency: does not exercise Review of Systems (Anesthesia) ROS Narrative System reviewed and no additional complaints, except as documented. 04/23/25 0754 mary SEQUEIRA> Date _ Yovani Walker MD Cosigner Signature: Date CC: ~ Signed [facility]06-16-2025 History and physical note [facility] Medical Records Department [address] [place] [address] History & Physical Exam 04/23/25725 MR#: [id number] Acct: [id number] Name: LILLIE HOLLAND Rep #:[id number] : 1975 49 From: Maddy Amador MD PCP: LINA Mckeon Status:[facility] Location: [place] [address] HPI - General General Date of Service: 04/23/25 [facility] Narrative LILLIE HOLLAND, is a 49 F who presents for screening colonoscopy. Does not remember having a colonoscopy however records states she had one in January 2019 had a rectal polyp at that time with Dr. Stevens. Also had an EGD at that time. Patient denies any family history of colon cancer. Patient has bowel movementsdaily denies any blood. Patient denies any chronic abdominal pain/nausea/vomiting. Patient's reflux is controlled with omeprazole. [facility] Medical History (Updated 04/23/25 @ 07:[address] Maddy Amador MD) Wears glasses Post-menopausal Marijuana use Alcohol use [...] obstructive pulmonary disease) Vasculitis Cough Home Medications ?Medication ?Instructions ?Recorded ?Last Taken ?Type omeprazole 20 mg capsule,delayed 20 mg PO DAILY Unknown History release inhalational spacing device (Space #1 ea 11/03/23 Unkn own History Chamber) multivitamin with minerals-folic 1 tab PO DAILY Unknown History acid 0.4 mg tablet zolpidem 5 mg tablet 5 mg PO QHS PRN sleep Unknown History albuterol sulfate 90 mcg/actuation 2 puff inhalation Q 4H PRN 03/05/25 Unknown Rx aerosol inhaler shortness of breath or wheez ing #8.5 grams fluticasone fur. 100 mcg-umeclid 1 inh inhalation QDAY #60 ea 04/10/25 04/23/25 05:00 Rx 62.5 mcg-vilant 25 mcg inhalat.powder (Trelegy Ellipta) Marijuana Medical Card .Route 04/16/25 Unknown Hist ory calcium 600 mg (as 1 tab PO DAILY 04/19/25 Unkn own History carbonate)-vitamin D3 5 mcg (200 unit) tablet (Calcium 600 + D(3)) cetirizine 10 mg tablet (24Hour 10 mg PO DAILY PRN all ergy symptoms 04/19/25 Unknown History Allergy) docusate sodium 100 mg capsule 100 mg PO DAILY 5 Unknown History (Col-Rite) oxybutynin chloride 10 mg 10 mg PO BID 04/19/25 Unknow n History tablet,extended release 24 hr vitamin B complex (Complex B-100 1 tab PO DAILY Unknown History tablet,extended release) Allergy/AdvReac Type Severity Reaction Status Date / Time No Known Allergies Allergy Verified 04/23/25 06:58 Family History Mother Arthritis Diabetes Surgical History (Updated 04/19/25 @ 12:08 by Rosalina Sauer) Hx of wisdom tooth extraction History of esophagogastroduodenoscopy (EGD) Hx of colonoscopy delivery delivered H/O: hysterectomy Social History Smoking Status: Former smoker quit date: 11/30/23 Tobacco: How many years used: 31 Electronic Cigarette Use: not used second hand exposure: Yes alcohol intake: current alcohol intake frequency: a few times a month substance use type: does not use caffeine: Yes frequency: does not exercise Past Medical/Surgical History Planned Operation Planned Operative Procedure(s): COLONOSCOPY-OA S.O.S: No Previous Hospitalizations/Surgeries HX Hospitalizations: Yes (NAUSEA WITH CSECTION) HX of Surgeries: X2, TUBAL LIGATION WISDOM TEETH VAGINAL HYSTERECTOMY BSO 2017 Any Problems With Anesthesia: No You/Your Family Experience Fever (Hyperthermia) With Anes: No Cholinesterase deficiency: No Cardiovascular Hx Chest Pain within Last 2 months: No (.) Hx of Irregular Heartbeat and/or Afib: Yes ( CHILD, RESOLVED) Hx Heart Attack: No Hx Congestive Heart Failure: No Hx Rheumatic Fever: No Hx Hypertension: No Hx Internal Defibrillator: No Hx Pacemaker: No Hx Cardiac Catheterization: No Hx Cardiac Surgery/Stents/Etc.: No Hx Stress Test: No (.) Hx Pain in Legs when Walking/Leg Cramps: No Respiratory Chronic Cough: No HX of Shortness of Breath: Yes (SOB WITH 2 FLIGHTS OF STAIRS) Hoarseness: No Hx Chronic Obstructive Pulmonary Disease (COPD): Yes (CHRONIC BRONCHITIS/NO INHALERS USED) Hx Asthma: No Hx Emphysema: No Hx Sleep Apnea: No Hx Respiratory Tract Infection/Cold (presently): No Do You Snore Loudly (louder than talking or can be heard): No Do You Often Feel Tired/ Fatigued/ Sleepy Dring Daytime?: No Has Anyone Observed You Stop Breathing During Sleep?: No Result (for STOP score): Negative Hx Smoking: Yes (1 PPD X 20+ YRS/QUIT 6 MONTHS AGO) Smoking Status: Former smoker Gastrointestinal Controlled With Meds: No (NO MEDS) Hx Gastrointestinal Disorders: No Hx Gastrointestinal Bleed: No Hx Ulcer: No Hx Hiatal Hernia: No Difficulty Chewing/Swallowing: No Special diet followed at home: No Hx Unplanned Weight Loss of 20#: No HX Unplanned Weight Gain of 20#: No Neurological Hx Seizures: No HX Syncope/Blackout Spells/Unconsciousness: Yes (SYNCOPE OCC.) Hx Transient Ischemic Attacks (TIA): No Hx Multiple Sclerosis: No Hx Parkinson's Disease: No Hx Head/Neck Injury: No Hx Headaches: Yes (OCC) Hx Back Injury/Pain: No Recent Onset of Speech Difficulty: No Restless Legs: Yes (.) Does patient have nerve stimulator: No Blood Disorder Hx Leukemia: No Bleeding Tendencies: Yes (BRUISE EASILY) Hx Deep Vein Thrombosis: No Hx High Cholesterol: No Blood Transmitted Disease: No Hx Hepatitis: No Hx Cirrhosis: No Hx Anemia: No Hx Blood Disorders: No Reproduction : No Is Patient Lactating: No Hx Hysterectomy: Yes Hx Tubal Ligation: Yes Are You Post Menopause: No Genitourinary Hx Renal Disease: No Musculoskeletal Hx Arthritis: No Hx Rheumatoid Arthritis: No Hx Gout: No Recent Onset of an Orthopedic Problem: No Endocrine Hx Diabetes: No Thyroid Disease: No Hx Steroid Therapy: Yes (CURRENTLY ON PREDNISONE FOR PAIN TO RIGHT SHOULDER/ELBOW) Psycho/Social Hx Substance Use: No Hx Alcohol Use: Yes (OCC) Hx Anxiety: No Hx Depression: No Mental Illness: No Hx Dementia: No Miscellaneous Hx Cancer: No Recent Exposure to Contagious Disease: No Hx of C-Diff: No Any Loose Teeth: No Allergies No Known Allergies Allergy (Verified 04/23/25 06:58) Discharge Is Pt Admitted From a Mcc, or a Mcc: No After D/C, Where Do you Plan to Go: Return Home Vital Signs Vital Signs Vital Signs: 04/23/25 06:59 04/23/25 06:59 Temperature 97 F L Temperature Source Temporal Pulse Rate 72 Respiratory Rate 16 Respiratory Pattern Normal Blood Pressure 149/84 H Blood Pressure Mean 105 Blood Pressure Source Monitor Blood Pressure Position Sitting Blood Pressure Location Left Arm Pulse Ox 100 Oxygen Delivery Method Room Air Weight Weight: 180 lb 12.465 oz Body Mass Index (BMI) 32.0 Physical Exam Const alert, oriented x3 and no apparent distress HEENT normocephalic and head/scalp atraumatic Resp normal respiratory effort Cardio regular rate GI soft to palpation and non-tender; Negative for non-distended Palpation: Negative for guarding Extremity no clubbing, cyanosis or edema Skin no rashes or lesions noted Neuro CN's II-XII intact bilaterally Psych mental status grossly normal Assessment & Plan Assessment/Plan (1) Hx of colonic polyp: Surgery Risks - Colonoscopy I discussed with the patient the risks of the procedure: Yes Risks Include but are not Limited To: Risks include but are not limited to: Bleeding, perforation requiring further surgery, inability to complete colonoscopy requiring barium enema. 04/23/25 0734 Cosigner Signature (if applicable): CC: Dr. Maddy Amador MD; LINA Mckeon~ Signed [facility]06-16-2025 [facility] Medical Records Department [address] [place] [address] History Physical Exam 04/23/25 0726 MR#: [id number] Acct: [id number] Name: LILLIE HOLLAND Rep #: [id number] : 1975 49 From: Maddy Amador MD PCP: LINA Mckeon Status:[facility] Location: [place] [address] HPI - General General Date of Service: 04/23/25 HPI Narrative LILLIE HOLLAND, is a 49 F who presents for screening colonoscopy. Does not remember having a colonoscopy however records states she had one in January 2019 had a rectal polyp at that time with Dr. Stevens. Also had an EGD at that time. Patient denies any family history of colon cancer. Patient has bowel movements daily denies any blood. Patient denies any chronic abdominal pain/nausea/vomiting. Patient's reflux is controlled with omeprazole. [facility] Medical History (Updated 04/23/25 @ 07:[address] Maddy Amador MD) Wears glasses Post-menopausal Marijuana use Alcohol use [...] History Chamber) multivitamin with minerals-folic 1 tab PO DAILY 01/03/24 Unknown Hi story acid 0.4 mg tablet zolpidem 5 mg tablet 5 mg PO QHS PRN sleep 08/28/24 Unk nown History albuterol sulfate 90 mcg/actuation 2 puff inhalation Q4H PRN Unknown Rx aerosol inhaler shortness of breath or wheezing #8.5 grams fluticasone fur. 100 mcg-umeclid 1 inh inhalation QDAY #60 ea 04/1004/23/25 05:00 Rx 62.5 mcg-vilant 25 mcg inhalat.powder (Trelegy Ellipta) Marijuana Medical Card .Route 04/16/25 Unknown History calcium 600 mg (as 1 tab PO DAILY 04/19/25 Unknown Hi story carbonate)-vitamin D3 5 mcg (200 unit) tablet (Calcium 600 + D(3)) cetirizine 10 mg tablet (24Hour 10 mg PO DAILY PRN allergy symptom s 04/19/25 Unknown History Allergy) docusate sodium 100 mg capsule 100 mg PO DAILY 04/19/25 Unknown H istory (Col-Rite) oxybutynin chloride 10 mg 10 mg PO BID 04/19/25 Unknown Hist ory tablet,extended release 24 hr vitamin B complex (Complex B-100 1 tab PO DAILY 04/19/25 Unknown Hi story tablet,extended release) Allergy/AdvReac Type Severity Reaction Status Date / Time No Known Allergies Allergy Verified 04/23/25 06:58 Family History Mother Arthritis Diabetes Surgical History (Updated 04/19/25 @ 12:08 by Rosalina Sauer) Hx of wisdom tooth extraction History of esophagogastroduodenoscopy (EGD) Hx of colonoscopy delivery delivered H/O: hysterectomy Social History Smoking Status: Former smoker quit date: 11/30/23 Tobacco: How many years used: 31 Electronic Cigarette Use: not used second hand exposure: Yes alcohol intake: current alcohol intake frequency: a few times a month substance use type: does not use caffeine: Yes frequency: does not exercise Past Medical/Surgical History Planned Operation Planned Operative Procedure(s): COLONOSCOPY-OA S.O.S: No Previous Hospitalizations/Surgeries HX Hospitalizations: Yes (NAUSEA WITH CSECTION) HX of Surgeries: X2, TUBAL LIGATION WISDOM TEETH VAGINAL HYSTERECTOMY BSO 2016 Any Problems With Anesthesia: No You/Your Family Experience Fever (Hyperthermia) With Anes: No Cholinesterase deficiency: No Cardiovascular Hx Chest Pain within Last 2 months: No (.) Hx of Irregular Heartbeat and/or Afib: Yes ( CHILD, RESOLVED) Hx Heart Attack: No Hx Congestive Heart Failure: No Hx Rheumatic Fever: No Hx Hypertension: No Hx Internal Defibrillator: No Hx Pacemaker: No Hx Cardiac Catheterization: No Hx Cardiac Surgery/Stents/Etc.: No Hx Stress Test: No (.) Hx Pain in Legs when Walking/Leg Cramps: No Respiratory Chronic Cough: No HX of Shortness of Breath: Yes (SOB WITH 2 FLIGHTS OF STAIRS) Hoarseness: No Hx Chronic Obstructive Pulmonary Disease (COPD): Yes (CHRONIC BRONCHITIS/NO INHALERS USED) Hx Asthma: No Hx Emphysema: No Hx Sleep Apnea: No Hx Respiratory Tract Infection/Cold (presently): No Do You Snore Loudly (louder than talking or can be heard): No Do You Of (more content not included)...[facility]04-28-2025 Evaluation note* Diagnosis Onset Date Resolution Status Admit Date Daytime hypersomnia acute March 05, 2025 12:53pm Obesity acute March 05 12:53pm Dyspnea chronic March 05 12:53pm Fibromyalgia chronic March 05, 2025 12:53pm Smoking greater than 20 pack years chronic March 05, 2025 12:53pm [facility] Work Phone: 1(518) 976-999304-28-2025 Evaluation note* Diagnosis Onset Date Resolution Status Admit Date Daytime hypersomnia acute March 05, 2025 12:53pm Obesity acute March 05 12:53pm Dyspnea chronic March 05 12:53pm Fibromyalgia chronic March 05, 2025 12:53pm Smoking greater than 20 pack years chronic March 05, 2025 12:53pm Diastolic dysfunction acute Apr 11:13am Obesity acute April 16, 2025 11:13am Obstructive sleep apnea acute J une 2024 11:13am Fibromyalgia chronic April 16 11:13am Smoking greater than 20 pack years chronic April 16, 2025 1 1:13am [facility] Work Phone: 1(787) 854-384304-28-2025 Evaluation note* Diagnosis Onset Date Resolution Status Admit Date Daytime hypersomnia acute March 05, 2025 12:53pm Dyspnea chronic March 05 12:53pm Fibromyalgia chronic March 05, 2025 12:53pm Obesity chronic March 05 12:53pm Smoking greater than 20 pack years chronic March 05, 2025 12:53pm Diastolic dysfunction acute Apr 11:13am Obstructive sleep apnea acute J une 2024 11:13am Dyspnea chronic April 16, 2025 11:13am Fibromyalgia chronic April 16 11:13am Obesity chronic April 16, 2025 11:13am Smoking greater than 20 pack years chronic April 16, 2025 1 1:13am Hx of colonic polyp acute April 23, 2025 6:35am [facility] Work Phone: 1(664) 491-611804-28-2025 Evaluation note* Diagnosis Onset Date Resolution Status Admit Date Daytime hypersomnia acute March 05, 2025 12:53pm Dyspnea chronic March 05 12:53pm Fibromyalgia chronic March 05, 2025 12:53pm Obesity chronic March 05 12:53pm Smoking greater than 20 pack years chronic March 05, 2025 12:53pm Diastolic dysfunction acute Apr 11:13am Obstructive sleep apnea acute J une 2024 11:13am Dyspnea chronic April 16, 2025 11:13am Fibromyalgia chronic April 16 11:13am Obesity chronic April 16, 2025 11:13am Smoking greater than 20 pack years chronic April 16, 2025 1 1:13am Hx of colonic polyp acute April 23, 2025 6:35am Chest pain acute May 30 11:06am [facility] Work Phone: 1(471) 868-676409-16-2024 NoteHNO ID: [id number] Author: LAURITA JAMISON APRN.MATE RELIEF Service: ? 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 Gift Packer History LMP: 01/09/2008, Hysterectomy Age at Menarche: Age at First : Age at Menopause: Gift Packer History Comments: Sexual Activity: Yes; Male Contraception: [...] medication, no leakage or incontinence Laurita Jamison APRN.[place] Medical Decision Making: Problems: Low: Stable chronic illness Risk: Low: Low risk from testing/treatment Medical Decision Making Level: [facility] - [facility] of Present illness Narrative* Laurita Jamison [...] L2 SAB0 IAB0 Ectopic0 Multiple0 Live Births2 Gift Packer History LMP: 01/09/2008, Hysterectomy Age at Menarche: Age at First : Age at Menopause: Gift Packer History Comments: Sexual Activity: Yes; Male Contraception: [...] wisdom teeth PAST SURGICAL HISTORY OF 06/07/2017 DURGA/BSDionna per Dr Blair FAMILY HISTORY Problem Relation [...] Level: 3 - Low [facility] Tele[facility] encounter Note * Telephone Encounter - Leonor Hernandez RN - 06/16/2024 10:01 AM EDT No lab results found per [facility]. Note in patient's chart states to call after 4:00 PM. Leonor Hernandez RN [facility]08-09-2024 Miscellaneous Notes* Telephone Encounter - Leonor Hernandez RN - 06/16/2024 10:01 AM EDT No lab results found per [facility]. Note in patient's chart states to call after 4:00 PM. Leonor Hernandez RN * Telephone Encounter - Leonor Hernandez RN - 06/15/2024 3:47 PM EDT Request faxed. Leonor Hernandez RN * Telephone Encounter - Laurita Jamison APRN.CNP - 06/15/2024 3:31 PM EDT Can we contact [facility] to see if they have any labs results since 05/29. Pt was to get labs done there and I haven't receive anything. Laurita Jamison APRN.CNP [facility] Telephone encounter Note * Telephone Encounter - Leonor Hernandez RN - 06/15/2024 3:47 PM EDT Request faxed. Leonor Hernandez RN [facility]08-08-2024 Telephone encounter Note* Telephone Encounter - Laurita Jamison APRN.CNP - 06/15/2024 3:31 PM EDT Can we contact [facility] to see if they have any labs results since 05/29. Pt was to get labs done there and I haven't receive anything. Laurita Jamison APRN.CNP [facility]07-22-2024 NoteHNO ID: [id number] Author: LAURITA JAMISON APRN.CNP Service: ? Author [...] L2 SAB0 IAB0 Ectopic0 Multiple0 Live Births2 Gift Packer History LMP: 01/09/2008, Hysterectomy Age at Menarche: Age at First : Age at Menopause: Gift Packer History Comments: Sexual Activity: Yes; Male Contraception: [...] D 24 HYDROXY Having labs done at [facility] Will notify patient of test results. Laurita Jamison APRN.CNP Medical Decision Making: Problems: Moderate: New problem with uncertain prognosis Data: Unique test(s) ordered: 3+ Risk: Moderate: Drug management Medical Decision Making Level: 4 - Moderate .[facility]07-22-2024 History of Present illness Narrative* Laurita Jamison APRN.MATE RELIEF - 05/29/2024 2:07 PM EDT Lillie Holland is a 48 year old female who presents for medication follow up HPI: she has not notice a difference with the estrace decreasing to hot flashes. She also is concerned about the unexplained weight gain, fatigue, and urinary urgency. OB History T2 L2 SAB0 IAB0 Ectopic0 Multiple0 Live Births2 Gift Packer History LMP: 01/09/2008, Hysterectomy Age at Menarche: Age at First : Age at Menopause: Gift Packer History Comments: Sexual Activity: Yes; Male Contraception: [...] D 24 HYDROXY Having labs done at [facility] Will notify patient of test results. Laurita Jamison APRN.CNP Medical Decision Making: Problems: Moderate: New problem with uncertain prognosis Data: Unique test(s) ordered: 3+ Risk: Moderate: Drug management Medical Decision Making Level: 4 - Moderate . [facility]-2024 NoteHNO ID: [id number] Author: LAURITA JAMISON APRN.CNP Service: ? Author Type: Nurse Practitioner Type: Progress Notes Filed: 03/27/2024 11:43 Note Text: Advance Scout offered: Patient declinesDmitriy Moreira is a 48 [...] L2 SAB0 IAB0 Ectopic0 Multiple0 Live Births2 Gift Packer History LMP: 01/09/2008, Hysterectomy Age at Menarche: Age at First : Age at Menopause: Gift Packer History Comments: Sexual Activity: Yes; Male Contraception: [...] external genitalia normal, normal Bartholin's glands, urethra, [place]'s glands, no vulvar lesions, good vaginal support, [...] V76.12, ICD10: Z12.31 - order give for [facility] Laurita Jamison APRN.[facility]05-20-2024 History of Present illness Narrative* Laurita Jamison APRN.[place] - 03/27/2024 10:27 AM EDT Advance Scout offered: Patient declinesDmitriy Moreira is a 48 [...] L2 SAB0 IAB0 Ectopic0 Multiple0 Live Births2 Gift Packer History LMP: 01/09/2008, Hysterectomy Age at Menarche: Age at First : Age at Menopause: Gift Packer History Comments: Sexual Activity: Yes; Male Contraception: [...] external genitalia normal, normal Bartholin's glands, urethra, [place]'s glands, no vulvar lesions, good vaginal support, [...] Z12.31 - order give for DEANDRE Jamison APRN.MATE RELIEF documented [facility]12-[facility]-2023 [facility] Yovani [facility] Note Date/Time April 23, 2025 7:54 am [facility] Medical Records Department [address] [place] [address] Pre-Anesthesia Evaluation 04/23/25 0747 MR#: [id number] Acct: [id number] Name: LILLIE HOLLAND Rep #:[id number] : 1975 49 From: Yovani Walker MD PCP: LINA Mckeon Status:[facility] Race: C Location: [place] [address] ASA Classification* ASA Classification ASA Classification: 3 Assessment & Plan Anesthesia* Anesthesia Assessment Anesthesia Assessment: Discussed sedation and/or anesthesia options, risks, benefits, and alternatives with patient/parents/legal guardian/POA. Questions invited. The patient/parents/legal guardian/POA seems to understand and agrees to proceedwith anesthesia plan. Reviewed the physical assessment, medical history, allergy history and patient home medications list prior to surgery/procedure/anesthetic and documented any changes. Performed airway and anesthesia risk assessments. Anesthesia Type Anesthesia Type: MAC History Source History Obtained from:: Patient and Chart Anesthesia Focused Assessment* Temperature: 97 F Pulse Rate: 72 Blood Pressure: 149/84 Respiratory Rate: 16 Pulse Ox: 100 Oxygen Delivery Method: Room Air Airway Assessment Mouth opens: >3 cm Mallampati Score: III Teeth Condition: Missing (Patient has couple missing teeth.) Neck Range of motion (ROM): Full ROM Labs Anesthesia Preop lab: CBC WBC 9.6 K/mm3 (4.4-11.0) 06/08/17 06:00 06/08/17 RBC 4.04 M/mm3 (4.2-5.4) L 06/08/17 06:00 06/08/17 Hgb 12.2 g/dl (12.0-15.0) 06/08/17 06:00 06/08/17 Hct 38.1 % (37-47) 06/08/17 06:00 06/08/17 Plt Count 179 K/mm3 (150-450) 06/08/17 06:00 06/08/17 CHEMISTRY Creatinine 0.71 mg/dL (0.55-1.02) 06/08/17 06:00 06/08/17 COAG PT 12.7 SECONDS (11.7-14.9) 04/21/17 11:48 Pre-Assessment Diagnosis/Proposed Procedure Planned Operative Procedure(s): COLONOSCOPY-OA Anesthesia History Anesthesia History - reconciliation clerk: Anesthesia History - reconciliation clerk Hx Hospitalization Yes: NAUSEA WITH CSECTION 04/23/25 07:30 Any Problems With Anesthesia No 04/23/25 07:30 Cholinesterase deficiency No 04/23/25 07:30 You/Your Family Experience No 04/23/25 07:30 fever (hyperthermia) with Relationship Recent Exposure to Contagious No 04/23/25 07:30 Disease Does patient have nerve No 04/23/25 07:30 stimulator Patient instructed to have device shut off --Does patient have Pacemaker No 04/23/25 06:59 or ICD? When Was Last Pacemaker Check QUESTION #4 FULL TEXT: You/Your Family Experience fever (hyperthermia) with Anesthesia Last Oral Intake Last Oral intake: Last Oral Intake NPO since 05:30 04/23/25 06:59 Meds taken in AM with sips of No 04/23/25 06:59 water? Meds patient instructed to take am of surgery Any additional information?: Yes NPO since: 05:30 (Patient had black coffee at 5:30 AM.) Meds taken in AM with sips of water?: Yes PONV PONV - reconciliation clerk: PONV - reconciliation clerk Female Yes 04/19/25 12:09 HX of Motion Sickness No 04/19/25 12:09 HX of N/V After Surgery No 04/19/25 12:09 Non-Smoker Yes 04/19/25 12:09 Duration of Surgery greater No 04/19/25 12:09 than 60 minutes Number of Risk Factors 2 04/19/25 12:09 PONV Score Moderate Risk 04/19/25 12:09 Height & Weight Height & Weight: Anesthesia: Height & Weight Height 5 ft 3 in 04/23/25 06:59 Weight: 82 kg 04/23/25 06:59 Body Mass Index (BMI) 32.0 04/23/25 06:59 Respiratory Assessment Respiratory Assessment - reconciliation clerk: Respiratory Tract Infection Hx - reconciliation clerk Hx Respiratory Tract Infection No 04/23/25 07:30 STOP Sleep Apnea STOP Sleep Apnea - reconciliation clerk: STOP Sleep Apnea - reconciliation clerk Hx Hypertension No 04/23/25 07:30 Hx Sleep Apnea No 04/23/25 07:30 CPAP BIPAP Do you snore loudly (louder No 04/23/25 07:30 than talking or can be heard Do you often feel tired/ No 04/23/25 07:30 fatigued/ sleepy during daytime? Has anyone observed you stop No 04/23/25 07:30 breathing during sleep? STOP Results Negative 04/23/25 07:30 QUESTION #5 FULL TEXT : Do you snore loudly (louder than talking or can be heard through closed doors)? Tobacco Use History Tobacco Use History - reconciliation clerk: Tobacco Use History - reconciliation clerk Tobacco Use Smoking Status Former smoker 04/23/25 07:30 Hx Tobacco Use Yes 04/19/25 12:09 Years Smoking Packs Smoked per Day Smoking Cessation Date was Yes - quit smoking within 15 04/19/25 12:09 within the last 15 years years Hx Smoking Cessation Date Hx Smoking Cessation Counseling Hematologic Medial History Hematologic Hx - reconciliation clerk: Hematologic Medical Hx - bulk pigment reducer Hx of Blood Transfusion No 04/19/25 12:09 Hx of Transfusion in last 3 No 04/19/25 12:09 Months Date of Last Transfusion (if within last 3 months) Ever experience any problems No 04/19/25 12:09 with transfusion(s)? Specify any problems Hx of Preganancy in last 3 No 04/19/25 12:09 Months Nurse Filling Out Transfusion VCHRISTIN 04/19/25 12:09 & Questions: Date: 04/19/25 04/19/25 12:09 Time: 12:10 04/19/25 12:09 Patient unable to answer at this time (ie. confused, unrespo /Reproduction History /Reproductive History - reconciliation clerk: /Reproductive Hx- reconciliation clerk Hx Now No 04/23/25 07:30 Gestational Age (in weeks): EDC: Hx Hx Para Hx Section SAB No 04/19/25 12:09 Active Medications Active Medications: Current Medications Generic Name Dose Route Start Last Admin Trade Name Freq PRN Reason Stop Dose Admin Lactated Ringer's 1,000 mls @ 15 mls/hr 04/23/25 07:00 04/23/25 07:14 IV 15 mls/hr .Q48H RANJANA Administration PFSH Medical History Wears glasses Post-menopausal Marijuana use Alcohol use [...] obstructive pulmonary disease) Vasculitis Cough Home Medications ?Medication ?Instructions ?Recorded ?Last Taken ?Type omeprazole 20 mg capsule,delayed 20 mg PO DAILY Unknown History release inhalational spacing device (Space #1 ea 11/03/23 Unkn own History Chamber) multivitamin with minerals-folic 1 tab PO DAILY Unknown History acid 0.4 mg tablet zolpidem 5 mg tablet 5 mg PO QHS PRN sleep Unknown History albuterol sulfate 90 mcg/actuation 2 puff inhalation Q 4H PRN 03/05/25 Unknown Rx aerosol inhaler shortness of breath or wheez ing #8.5 grams fluticasone fur. 100 mcg-umeclid 1 inh inhalation QDAY #60 ea 04/10/25 04/23/25 05:00 Rx 62.5 mcg-vilant 25 mcg inhalat.powder (Trelegy Ellipta) Marijuana Medical Card .Route 04/16/25 Unknown Hist ory calcium 600 mg (as 1 tab PO DAILY 04/19/25 Unkn own History carbonate)-vitamin D3 5 mcg (200 unit) tablet (Calcium 600 + D(3)) cetirizine 10 mg tablet (24Hour 10 mg PO DAILY PRN all ergy symptoms 04/19/25 Unknown History Allergy) docusate sodium 100 mg capsule 100 mg PO DAILY 5 Unknown History (Col-Rite) oxybutynin chloride 10 mg 10 mg PO BID 04/19/25 Unknow n History tablet,extended release 24 hr vitamin B complex (Complex B-100 1 tab PO DAILY Unknown History tablet,extended release) Allergy/AdvReac Type Severity Reaction Status Date / Time No Known Allergies Allergy Verified 04/23/25 06:58 Family History Mother Arthritis Diabetes Surgical History Hx of wisdom tooth extraction History of esophagogastroduodenoscopy (EGD) Hx of colonoscopy delivery delivered H/O: hysterectomy Social History Smoking Status: Former smoker quit date: 11/30/23 Tobacco: How many years used: 31 Electronic Cigarette Use: not used second hand exposure: Yes alcohol intake: current alcohol intake frequency: a few times a month substance use type: does not use caffeine: Yes frequency: does not exercise Review of Systems (Anesthesia) ROS Narrative System reviewed and no additional complaints, except as documented. 04/23/25 0759 <Electronically signed by Yovani hernandez MD> Date _ Yovani Walker MD Cosigner Signature: Date CC: ~ Signed [facility] Work Phone: Consult note Author Jesse Gore [facility] Note Date/Time April 23, 2025 9:35 am [facility] Medical Records Department [address] [place] [address] Anesthesia Postop Eval I 04/23/25845 MR#: [id number] Acct: [id number] Name: LILLIE HOLLAND Rep #:[id number] : 1975 49 From: Jesse Gore PCP: LINA Mckeon Status:REG [facility] Y Race: C Location: [place] [address] Anesthesia: Postop Eval I Current Vital Signs Temperature: 97 F Pulse Rate: 87 Blood Pressure: 83/41 Respiratory Rate: 16 Pulse Ox: 96 Oxygen Delivery Method: Room Air Assessment Airway patent: Yes Spontaneous unlabored respirations: Yes Mental status: Awake and Calm nausea: No Vomiting: No Anesthesia Complication: No Fluid Hydration Crystalloid volume administer (ml): 800 Total IV fluid infused: 800 Progress Note Anesthesia document: Postop Eval 1 completed: Yes 04/23/25845 <Electronically signed by Jesse Groe > Date _ Jesse Gómez Signature: Date CC: ~ Signed [facility] Work Phone: Evaluation note* Diagnosis Onset Date Resolution Status COPD (chronic obstructive pulmonary disease) chronic Nicotine dependence, cigarettes, uncomplicated chronic [facility] Work Phone: Evaluation note* Diagnosis Onset Date Resolution Status COPD (chronic obstructive pulmonary disease) chronic Nicotine dependence, cigarettes, uncomplicated chronic Fibromyalgia acute Dyspnea chronic [facility] Work Phone: Evaluation note* Diagnosis Onset Date Resolution Status Dyspnea chronic Fibromyalgia chronic COPD (chronic obstructive pulmonary disease) chronic Dyspnea chronic Fibromyalgia chronic Nicotine dependence, cigarettes, uncomplicated chronic [facility] Work Phone: Evaluation note* Diagnosis Encounter for gynecological examination (general) (routine) without abnormal findings- Primary Hot flashes Symptomatic menopausal or female climacteric states Encounter for screening mammogram for malignant neoplasm of breast Other [facility] Unintended weight gain- Primary Abnormal weight gain OAB (overactive bladder) Hypertonicity of bladder Forgetfulness Other general symptoms Hot flashes Symptomatic menopausal or female climacteric states Screening cholesterol level Screening for lipoid disorders Screening for diabetes mellitus Screening for metabolic disorder Encounter for vitamin deficiency screening Screening for other and unspecified endocrine, nutritional, metabolic, and immunity disorders [facility] Menopausal symptoms- Primary Symptomatic menopausal or female climacteric states OAB (overactive bladder) Hypertonicity of bladder documented in this encounter [facility] Discharge instructionsAmbulatory Orders* Cardiology Location: None [facility] Work Phone: Reason for referral (narrative)No reason for referral information [facility] Work Phone: Chief Complaint and Reason [...] 20 pack years April 16, 2025 11:13am Chief Complaint Admit Date 4 M FU March 05, 2025 12: 53pm Other forms of dyspnea March 23, 2025 1: 50pm R06.09 - Other forms of dyspnea March 12:17pm PENNY, HYPERSOMNIA April 01, 2025 11:00 am R06.09 - Other forms of dyspnea March 12:28pm 3 M FU April 16, 2025 11:13 am Reason for Visit Admit Date Daytime hypersomnia March 05, 2025 12: 53pm Dyspnea March 05, 2025 12: 53pm Fibromyalgia March 05, 2025 12: 53pm Obesity March 05, 2025 12: 53pm Smoking greater than 20 pack years March 05, 2025 12:53pm Diastolic dysfunction April 16, 2025 11: 13am Obstructive sleep apnea April 16, 2025 1 1:13am Dyspnea April 16, 2025 11:13 am Fibromyalgia April 16, 2025 11:13 am Obesity April 16, 2025 11:13 am Smoking greater than 20 pack years April 16, 2025 11:13am Hx of colonic polyp April 23, 2025 6:35 am Chief Complaint Admit Date 4 M FU March 05, 2025 12: 53pm Other forms of dyspnea March 23, 2025 1: 50pm R06.09 - Other forms of dyspnea March 12:17pm PENNY, HYPERSOMNIA April 01, 2025 11:00 am R06.09 - Other forms of dyspnea March 12:28pm 3 M FU April 16, 2025 11:13 am SOB (MEJÍA) May 30, 2025 11:0 6am Reason for Visit Admit Date Daytime hypersomnia March 05, 2025 12: 53pm Dyspnea March 05, 2025 12: 53pm Fibromyalgia March 05, 2025 12: 53pm Obesity March 05, 2025 12: 53pm Smoking greater than 20 pack years March 05, 2025 12:53pm Diastolic dysfunction April 16, 2025 11: 13am Obstructive sleep apnea April 16, 2025 1 1:13am Dyspnea April 16, 2025 11:13 am Fibromyalgia April 16, 2025 11:13 am Obesity April 16, 2025 11:13 am Smoking greater than 20 pack years April 16, 2025 11:13am Hx of colonic polyp April 23, 2025 6:35 am Chest pain May 30, 2025 11:0 6am Advance Directives Advance Directive Response Recorded Date/ Time Living Will No January 10, 2019 8:12am Power of Rug [employer]ter [place] No January 10 9 8:12am Advance Directive Response Recorded Date/ Time Living Will No January 10, 2019 9:12am Power of Rug Setter [place] No January 10 9 9:12am Advance Directive Response Recorded Date/ Time Living Will No January 10, 2019 9:12am Do you have a Healthcare Power of Rug Setter [place]? No January 10, 2019 9:12am Advance Directive Response Recorded Date/ Time Living Will No January 10, 2019 9:12am Do you have a Healthcare Power of Rug Setter [place]? No January 10, 2019 9:12am Do you have a Healthcare Power of Rug Setter [place]? No April 19, 2025 12:09pm Family History Relationship Condition Age at Onset Recorded Date/T larissa mother Arthritis Unknown Diabetes mellitus Unknown Disorder of thyroid Unknown aunt Malignant neoplasm of breast Unknown grandmother Hypertension Unknown grandmother Cerebrovascular accident (CVA) Unknown No Family History Records Found Arthritis Status:Active [...] Provider, Referring Provider Active Dr. Dangelo Muller , Attending Provider Active Team Status: Active Member Role Status Dates LINA Mckeon Primary Care Provider Active Dr. Dangelo Muller , Attending Provider, Referring Provider, Other Provider Active Team Status: Inactive Member Role Status Dates LINA Mckeon Primary Care Provider Active Dr. Dangelo Muller , Attending Provider, Referring Pro vider Active Team Status: Inactive Member Role Status Dates LINA Mckeon Primary Care Provider, Referring Pro vider Active Ashanti Mejía ASSOCIATE PROGRAM MANAGER, ASSOCIATE PROGRAM MANAGER-C Attending Provider Active Team Status: Active Member Role Status Dates LINA Mckeon Primary Care Provider Active Dr. Fahad Beaver MD Attending Provider Active Team Status: Inactive Member Role Status Dates LINA Mckeon Primary Care Provider Active Ashanti Mejía ASSOCIATE PROGRAM MANAGER, ASSOCIATE PROGRAM MANAGER-C Attending Provider, Referrin g Provider Active Outpatient Coding Specialist Relationship Specialty Start Date End Date Carlin Adam [address] [place] [address] Referring Family Medicine 01/31/19 Outpatient Coding Specialist Relationship Specialty Start Date End Date Carlin Adam [address] [place] [address] Referring Family Medicine 01/31/19 Team Status: Active Member Role Status Dates LINA Mckeon Primary Care Provider Active Team Status: Inactive Member Role Status Dates LINA Mckeon Primary Care Provider Active S tart: December 11, 2024 End: December 11, 2024 Ashanti Mejía ASSOCIATE PROGRAM MANAGER, ASSOCIATE PROGRAM MANAGER-C Attending Provider Active Start: December 11, 2024 End: December 11, 2024 Ashanti Mejía ASSOCIATE PROGRAM MANAGER, ASSOCIATE PROGRAM MANAGER-C Referring Provider Active Start: December 11, 2024 End: December 11, 2024 Team Status: Inactive Member Role Status Dates LINA Mckeon Primary Care Provider Active S tart: December 18, 2024 End: December 18, 2024 Ashanti Mejía ASSOCIATE PROGRAM MANAGER, ASSOCIATE PROGRAM MANAGER-C Attending Provider Active Start: December 18, 2024 End: December 18, 2024 Ashanti Mejía ASSOCIATE PROGRAM MANAGER, ASSOCIATE PROGRAM MANAGER-C Referring Provider Active Start: December 18, 2024 End: December 18, 2024 Team Status: Inactive Member Role Status Dates LINA Mckeon Primary Care Provider Active S tart: March 05, 2025 End: March 05, 2025 LINA Mckeon Referring Provider Active Star t: March 05, 2025 End: March 05, 2025 Ashanti Mejía ASSOCIATE PROGRAM MANAGER, ASSOCIATE PROGRAM MANAGER-C Attending Provider Active Start: March 05, 2025 End: March 05, 2025 Team Status: Inactive Member Role Status Dates LINA Mckeon Primary Care Provider Active S tart: March 23, 2025 End: March 23, 2025 Ashanti Mejía ASSOCIATE PROGRAM MANAGER, ASSOCIATE PROGRAM MANAGER-C Attending Provider Active Start: March 23, 2025 End: March 23, 2025 Ashanti Mejía ASSOCIATE PROGRAM MANAGER, ASSOCIATE PROGRAM MANAGER-C Referring Provider Active Start: March 23, 2025 [...] 2025 End: March 27, 2025 Ashanti Mejía ASSOCIATE PROGRAM MANAGER, ASSOCIATE PROGRAM MANAGER-C Attending Provider Active Start: March 27, 2025 End: March 27, 2025 Ashanti Mejía ASSOCIATE PROGRAM MANAGER, ASSOCIATE PROGRAM MANAGER-C Referring Provider Active Start: March 27, 2025 End: March 27, 2025 Team Status: Inactive Member Role Status Dates Leonora Saldivar PA Primary Care Provider Active S tart: April 01, 2025 End: April 01, 2025 Ashanti Mejía ASSOCIATE PROGRAM MANAGER, ASSOCIATE PROGRAM MANAGER-C Attending Provider Active Start: April 01, 2025 End: April 01, 2025 Ashanti Mejía ASSOCIATE PROGRAM MANAGER, ASSOCIATE PROGRAM MANAGER-C Referring Provider Active Start: April 01, 2025 End: April 01, 2025 Team Status: Active Member Role Status Dates Leonora Saldivar PA Primary Care Provider Active S tart: April 03, 2025 Ashanti Mejía ASSOCIATE PROGRAM MANAGER, ASSOCIATE PROGRAM MANAGER-C Referring Provider Active Start: April 03, 2025 Ashanti Mejía ASSOCIATE PROGRAM MANAGER, ASSOCIATE PROGRAM MANAGER-C Other Provider Active Start: April 03, 2025 Dr. Dangelo Muller DO Attending Provider Active S tart: April 03, 2025 Team Status: Inactive Member Role Status Dates Leonoraasha Saldivar PA Primary Care Provider Active S tart: April 16, 2025 End: April 16, 2025 Leonora Saldivar PA Referring Provider Active Star t: April 16, 2025 End: April 16, 2025 Ashanti Mejía ASSOCIATE PROGRAM MANAGER, ASSOCIATE PROGRAM MANAGER-C Attending Provider Active Start: April 16, 2025 End: April 16, 2025 Team Status: Inactive Member Role Status Dates Leonoraasha Saldivar PA Primary Care Provider Active S tart: April 23, 2025 End: April 23, 2025 Leonoraasha Saldivar , PA Referring Provider Active Star t: April 23, 2025 End: April 23, 2025 Dr. Maddy Amador MD Attending Provider Active Start: April 23, 2025 End: April 23, 2025 Team Status: Active Member Role Status Dates Leonoraasha Saldivar PA Primary Care Provider Active S tart: April 23, 2025 Leonoraasha Saldivar PA Referring Provider Active Star t: April 23, 2025 Dr. Maddy Amador MD Attending Provider Active Start: April 23, 2025 Dr. Maddy Amador MD Other Provider Active S tart: April 23, 2025 Team Status: Active Member Role/Relationship Status Dates Leonora Saldivar PA Primary Care Provider Active Team Status: Inactive Member Role/Relationship Status Dates Leonoraasha Saldivar PA Primary Care Provider Active S tart: March 05, 2025 End: March 05, 2025 LINA Mckeon Referring Provider Active Star t: March 05, 2025 End: March 05, 2025 Ashanti Mejía ASSOCIATE PROGRAM MANAGER, ASSOCIATE PROGRAM MANAGER-C Attending Provider Active Start: March 05, 2025 End: March 05, 2025 Team Status: Inactive Member Role/Relationship Status Dates LINA Mckeon Primary Care Provider Active S tart: March 23, 2025 End: March 23, 2025 Ashanti Mejía ASSOCIATE PROGRAM MANAGER, ASSOCIATE PROGRAM MANAGER-C Attending Provider Active Start: March 23, 2025 End: March 23, 2025 Ashanti Mejía ASSOCIATE PROGRAM MANAGER, ASSOCIATE PROGRAM MANAGER-C Referring Provider Active Start: March 23, 2025 End: March 23, 2025 Team Status: Active Member Role/Relationship Status Dates LINA Mckeon Primary Care Provider Active S tart: March 23, 2025 Dr. Simon Del Rosario MD Attending Provider Active S tart: March 23, 2025 Team Status: Inactive Member Role/Relationship Status Dates LINA Mckeon Primary Care Provider Active S tart: March 27, 2025 End: March 27, 2025 Ashanti Mejía ASSOCIATE PROGRAM MANAGER, ASSOCIATE PROGRAM MANAGER-C Attending Provider Active Start: March 27, 2025 End: March 27, 2025 Ashanti Mejía ASSOCIATE PROGRAM MANAGER, ASSOCIATE PROGRAM MANAGER-C Referring Provider Active Start: March 27, 2025 End: March 27, 2025 Team Status: Inactive Member Role/Relationship Status Dates LINA Mckeon Primary Care Provider Active S tart: April 01, 2025 End: April 01, 2025 Ashanti Mejía ASSOCIATE PROGRAM MANAGER, ASSOCIATE PROGRAM MANAGER-C Attending Provider Active Start: April 01, 2025 End: April 01, 2025 Ashanti Mejía ASSOCIATE PROGRAM MANAGER, ASSOCIATE PROGRAM MANAGER-C Referring Provider Active Start: April 01, 2025 End: April 01, 2025 Team Status: Active Member Role/Relationship Status Dates LINA Mckeon Primary Care Provider Active S tart: April 03, 2025 Ashanti Mejía ASSOCIATE PROGRAM MANAGER, ASSOCIATE PROGRAM MANAGER-C Referring Provider Active Start: April 03, 2025 Ashanti Mejía ASSOCIATE PROGRAM MANAGER, ASSOCIATE PROGRAM MANAGER-C Other Provider Active Start: April 03, 2025 Dr. Dangelo Muller DO Attending Provider Active S tart: April 03, 2025 Team Status: Inactive Member Role/Relationship Status Dates LINA Mckeon Primary Care Provider Active S tart: April 16, 2025 End: April 16, 2025 Leonora Saldivar , PA Referring Provider Active Star t: April 16, 2025 End: April 16, 2025 Ashanti Mejía ASSOCIATE PROGRAM MANAGER, ASSOCIATE PROGRAM MANAGER-C Attending Provider Active Start: April 16, 2025 End: April 16, 2025 Team Status: Inactive Member Role/Relationship Status Dates Leonora Saldivar , PA Primary Care Provider Active S tart: April 23, 2025 End: April 23, 2025 Leonora Saldivar , PA Referring Provider Active Star t: April 23, 2025 End: April 23, 2025 Dr. Maddy Amador MD Attending Provider Active Start: April 23, 2025 End: April 23, 2025 Team Status: Active Member Role/Relationship Status Dates Leonora Saldivar , PA Primary Care Provider Active S tart: April 23, 2025 Leonora Saldivar , PA Referring Provider Active Star t: April 23, 2025 Dr. Maddy Amador MD Attending Provider Active Start: April 23, 2025 Dr. Maddy Amador MD Other Provider Active S tart: April 23, 2025 Team Status: Inactive Member Role/Relationship Status Dates Leonora Saldivar , PA Primary Care Provider Active S tart: May 08, 2025 Dr. Emerita Styles MD Attending Provider Active Start: May 08, 2025 Team Status: Inactive Member Role/Relationship Status Dates Leonora Saldivar , PA Primary Care Provider Active S tart: May 30, 2025 End: May 30, 2025 Leonora Saldivar , PA Referring Provider Active Star t: May 30, 2025 End: May 30, 2025 Dr. Simon Del Rosario MD Attending Provider Active S tart: May 30, 2025 End: May 30, 2025 Team Status: Inactive Member Role/Relationship Status Dates Leonora Saldivar , PA Primary Care Provider Active S tart: May 30, 2025 End: May 30, 2025 Dr. Simon Del Rosario MD Attending Provider Active S tart: May 30, 2025 End: May 30, 2025 Dr. Simon Del Rosario MD Referring Provider Active S tart: May 30, 2025 End: May 30, 2025 Goals (unrecognized section and content) Goals [...] or prosecute any alcohol or drug abuse patient.[facility] the event this information is protected by the Federal Confidentiality of Alcohol and Drug Abuse Patient Records regulations: The Federal rules restrict any use of the information to criminally investigate or prosecute any alcohol or drug abuse patient.[facility] the event this information is protected by the Federal Confidentiality of Alcohol and Drug Abuse Patient Records regulations: The Federal rules restrict any use of the information to criminally investigate or prosecute any alcohol or drug abuse patient.[facility] the event this information is protected by the Federal Confidentiality of Alcohol and Drug Abuse Patient Records regulations: The Federal rules restrict any use of the information to criminally investigate or prosecute any alcohol or drug abuse patient.[facility] Reason for Visit (unrecogniz ed section and content) Reason Comments Yearly Exam Reason Onset Date Comments Follow Up Weight Management 05/29/2024 Reason Comments Results Reason Comments Follow Up INFORMATION SOURCE (unrecogn ized section and content) DATE CREATED AUTHOR 04/29/2024 [employer] [facility] DATE CREATED AUTHOR AUTHOR'S ORGANIZ ATION 06/25/2024 [facility] DATE CREATED AUTHOR AUTHOR'S ORGANIZ ATION 07/25/2024 [facility] DATE CREATED AUTHOR AUTHOR'S ORGANIZ ATION 01/09/2025 [facility] DATE CREATED AUTHOR AUTHOR'S ORGANIZ ATION 06/10/2025 [facility] FOR RECORDS PERTAINING TO PATIENTS WHO ARE [...] BE BASED ON THE PRIMARY CLINICAL RECORDS. [facility] [employer] [facility]. provides no warranty or guarantee of the accuracy or completeness of information in this document.
--- OUTSIDE RECORDS SUMMARY | 2025-06-18 07:15 | XMS RPT_ITS | CCD ---
Author Organization [facility] Care Team Providers Care Clinical Registered Nurse Name Role Phone Dr. Carlin Adam Primary Care Provider Dr. Carlin Adam Referring Provider Dr. Dangelo Muller Attending Provider [phone] LINA Saldivar Primary Care Provider Dr. Dangelo Muller Referring Provider Dr. Dangelo Muller Other Provider Leonora Saldivar PA-C Unavailable [phone] Yuri (Dr. Zina Morejon MD Unavailable Medicine [facility], Pulmonary Unavailable Jensen SEQUEIRA, Dr. Felder Unavailable Counseling Provider Unavailable Unavailable Rheumatolgy Provider Unavailable Unavailable Seferino SEQUEIRA, Dr. Hood Goodman Unavailable Margaret SEQUEIRA, Dr. Carlin Cho Unavailable Traffic Clerk/Gynecology Prov. Unavailable Un available Cardiology Provider Unavailable Unavailable Sangita SEQUEIRA, Dr. Rowe Unavailable [phone] [place], Occupational Therapy Unavailable Physical [...] Unavailable Seven PA-C, Virgen Melton Unavailable Austyn PUPPET MASTER, Leonor Unavailable Unavailabl e Sannarosey PUPPET MASTER, Lady Unavailable Unavailable Unavailable Unavailable LINA Saldivar Leonora Referring Provider Kym CESPEDES, AMPOULE SEALER-C Ashanti Attending Provider Dr. Fahad Beaver Attending Provider Miranda SEQUEIRA, Dr. Morin Unavailable LINA Saldivar Leonora Primary Care Provider Dr. Dangelo Muller Attending Provider Dr. Dangelo Muller Referring Provider Dr. Dangelo Muller Other Provider LINA Saldivar Leonora Referring Provider Kym CESPEDES, AMPOULE SEALER-C Ashanti Attending Provider Dr. Fahad Beaver Attending [...] LAURITA Attending Unavailable SHAHEEN, LAURITA Attending Unavailable [facility] Unavailable SALDIVAR, LEONORA PAC Attending Unavailable SALDIVAR, LEONORA PAC Admitting Unavailable SALDIVAR, LEONORA PAC Primary Care Unavailable SALDIVAR, LEONORA PAC Consulting Unavailable SALDIVAR, LEONORA PAC Attending Unavailable SALDIVAR, LEONORA PAC Admitting Unavailable SALDIVAR, LEONORA PAC Primary Care Unavailable PROVIDER, UNKNOWN Consulting Unavailable SALDIVAR, LEONORA PAC Consulting Unavailable SHAHEEN, LAURITA TRANSFORMATION SPECIALIST Admitting Unavailable SHAHEEN, LAURITA TRANSFORMATION SPECIALIST Primary Care Unavailable SHAHEEN, LAURITA TRANSFORMATION SPECIALIST Attending Unavailable PROVIDER, UNKNOWN Consulting Unavailable Podiatry Provider Unavailable Unavailable Saldivar PA, Leonora Primary Care Provider 1([facility])[phone] Mejía AMPOULE SEALER-C, Ashanti Attending Provider Mejía AMPOULE SEALER-C, Ashanti Referring Provider Saldivar PA, Leonora Referring Provider 1([facility])[phone] Carin SEQUEIRA, Dr. Montes Attending Provider 1([facility])[phone] Mejía AMPOULE SEALER-C, Ashanti Other Provider 1([facility])[phone] Dr. Dangelo Muller DO Attending Provider 1([facility])[phone] Saldivar PA, Leonora Primary Care Provider 1([facility])[phone] Kym AMPOULE SEALER-C, Ashanti Attending Provider Mejía AMPOULE SEALER-C, Ashanti Referring Provider Saldivar PA, Leonora Primary Care Provider 1([facility])[phone] Mejía AMPOULE SEALER-C, Ashanti Attending Provider Mejía AMPOULE SEALER-C, Ashanti Referring Provider Marjorie SEQUEIRA, Dr. Castañeda Attending Provider 1([facility] )[phone] Dr. Maddy Amador MD Other Provider 1([facility])[phone] [facility], . Unavailable Jensen SEQUEIRA, Dr. Felder Attending Provider 1([facility])[phone] Carin SEQUEIRA, Dr. Montes Referring Provider 1([facility])[phone] Simon Del Rosario Referring Unavailable Simon Del Rosario Attending Unavailable Saldivar, Leonora Primary Care Unavailable MejíaAshanti Attending Unavailable Mejía Ashanti Referring Unavailable Saldivar, Leonora Primary Care Unavailable Simon Del Rosario Attending Unavailable Saldivar, Leonora Primary Care Unavailable Kym Ashanti Consulting Unavailable Mejía Ashanti Referring Unavailable Dangelo Muller Attending Unavailable Saldivar, Leonora Primary Care Unavailable Saldivar, Leonora Referring Unavailable MejíaAshanti Attending Unavailable Saldivar, Leonora Primary Care Unavailable Saldivar, Leonora Referring Unavailable Carin, [place] Attending Unavailable Saldivar, Leonora Primary Care Unavailable [...] Unavailable Saldivar, Leonora Primary Care Unavailable Carin, [place] Referring Unavailable Carin, [place] Attending Unavailable Kym, Ashanti Attending Unavailable Kym, Ashanti Attending Unavailable Mejía, Ashanti Referring Unavailable Saldivar, Leonora Primary Care Unavailable Saldivar, Leonora Referring Unavailable Saldivar, Leonora Primary Care Unavailable Maddy Amador Attending Unavailable Zack hWalen Referring Unavailable Zack Whalen Attending Unavailable Saldivar, Leoonra Primary Care Unavailable Allergies Allergy Classification Reported Allergen(s) Allergy Type Date of Onset Reaction(s) Facility (5 sources) Sulfamethoxazole / Trimethoprim; Translations: [SULFAMETHOXAZOLE-TRI METHOPRIM] Drug Allergy [address] [facility] Medications Current Medications Medication Drug Class(es) Dates Sig (Normalized) Sig (Original) Acetaminophen (4 sources) acetaminophen (T YLENOL ORAL) Take by mouth every 6 hours as needed. Active acetaminophen (T YLENOL ORAL) Take by mouth every 6 hours as needed. 0 Active [id number] 200 actuat albuterol 0.09 mg/actuat metered dose [...] Start: 09-15-2023 take 1 capsule by mo [facility] every week Cholecalciferol (Vitamin D3) 250 [...] 12:00am docusate sodium 50 mg / sennosides, skilled nursing 8.6 mg oral tablet (20 sources) Stool [...] 15, 2023 1:00am August 28, 2024 2:18pm Walayfsvlla-Szkxprlxx-Wcergy er (4 sources) Anticholinergic, Corticosteroid, beta2-Adrenergic Agonist Start: 04-10-2025 Axaqlwgqkjr-Tomoiwygn-Cfcvbm er (Trelegy Ellipta) 100-62.5-25 mcg blister with [...] 02-Nov-2023 Start: 09-15-2023 take 1 capsule by [facility] once daily Omeprazole 20 mg capsule,delayed release(DR/EC) [...] water and spit out; do not swallow Awqwkclioks-Ltmctwltc-Cybwud er (19 sources) Start: 02-12-2025 End: 04-10-2025 Aqfxnpdhzpz-Hxwcqhclc-Zidyit er (Trelegy Ellipta) 200-62.5-25 mcg blister with device Discontinued 1 NMA INHALATION DAILY 60 6 February 12, 2025 2:00pm April 10, 2025 10:56am Start: 02-12-2025 End: 04-10-2025 Ysonxalciwh-Kafozdksy-Pmeeni er (Trelegy Ellipta) 200-62.5-25 mcg blister with device Discontinued 1 NMA INHALATION DAILY 60 February 12, 2025 2:00pm April 10, 2025 10:56am Start: 02-12-2025 Fluticasone-Um eclidin-Vilanter (Trelegy Ellipta) 200-62.5-25 mcg blister with device Active 1 NMA INHALATION DAILY 60 February 12, 2025 2:00pm Start: 05-29-2024 End: 02-12-2025 Flyiqyrerkn-Lwfvecphr-Nesuoy er (Trelegy Ellipta) 200-62.5-25 mcg blister with device Discontinued 1 NMA INHALATION DAILY 60 May 29, 2024 12:34pm February 12, 2025 2:00pm Start: 05-29-2024 End: 02-12-2025 Trdjdildkab-Qyhwvmzrp-Hnhkil er (Trelegy Ellipta) 200-62.5-25 mcg blister with device Discontinued 1 NMA INHALATION DAILY 60 May 29, 2024 12:34pm February 12, 2025 2:00pm Start: 01-03-2024 End: 05-29-2024 Stihsczatwx-Pivhqgwal-Vtbnjo er (Trelegy Ellipta) 200-62.5-25 mcg blister with device Discontinued 1 NMA INHALATION DAILY 60 January 03, 2024 1:00am May 29, 2024 12:34pm Start: 01-03-2024 End: 05-29-2024 Vjfcgtyjskn-Haxzbysvo-Dftmrv er (Trelegy Ellipta) 200-62.5-25 mcg blister with [...] aftercare (20 sources) Drug indicated; Translations: [Other social worker (current) drug therapy] 08-04-2021 Episodic Other and [...] second round of treatment.Patient recently saw the adobe architect she was referred to and was given [...] the time. She is currently seeing a physical biochemist for management of her fatigue and fibromyalgia. [...] breath with talking. She is currently seeing hat cleaner and has upcoming appointment in February to [...] for Sweet Syndrome. Patient was seen at [facility] for a rash on her thighs back [...] rash previously and [facility] They diagnosed her with Sweet's [...] breath with talking. She is currently seeing hat cleaner and has upcoming appointment in February to [...] [facility] Facility Absolute [facility]Ord ered [facility] Lymphocytes Auto (Unsp spec) [#/Vol] 1.94 10*3/uL 0.83-4.51 [facility] Absolute neutrophil countOrd ered By: [facility] on 05-30-2025 Neutrophils (Bld) [#/Vol] 4.2 10*3/uL 2.0-7.7 [facility] Anion gap in Serum or Plasma Ordered By: [facility] on 05-30-2025 Anion gap [Moles/Vol] 11 mmol/L 5-15 [facility] Automated lymphocyte count a s percentage of total leukocytesOrdered By: [facility] on 05-30-2025 Lymphocytes/100 WBC Auto (Unsp spec) 28.7 % 19-41 [facility] BUN/creatinine ratioOrdered By: [facility] on 05-30-2025 Urea nitrogen/Creatinine [Mass ratio] 18.4 mg/mg 08-27 [facility] Basic Metabolic Profile (BMP )on 05-30-2025 BUN/CRE 18.4 RATIO Normal 08-27 [facility] Comment on above: Performed By: #### L 500.2500, L503.7505, L100.0100 #### [facility] [address] [place], [address] Calcium [Mass/Vol] 9.5 mg/dL Normal 7.6-11.0 [facility] Comment on above: Performed By: #### L 500.2500, L503.7505, L100.0100 #### [facility] [address] [place], [address] Chloride [Moles/Vol] 105 mmol/L Normal 98-108 [facility] Comment on above: Performed By: #### L 500.2500, L503.7505, L100.0100 #### [facility] [address] [place], [address] CO2 [Moles/Vol] 25.0 mmol/L Normal 21.0-32.0 [facility] Comment on above: Performed By: #### L 500.2500, L503.7505, L100.0100 #### [facility] [address] [place], [address] Creatinine [Mass/Vol] 0.61 mg/dL Low 0.70-1.20 [facility] Comment on above: Performed By: #### L 500.2500, L503.7505, L100.0100 #### [facility] [address] [place], [address] GAP 11 Normal 5-15 [facility] Comment on above: Performed By: #### L 500.2500, L503.7505, L100.0100 #### [facility] [address] [place], [address] GFR/1.73 sq M.predicted among non-blacks MDRD (S/P/Bld) [Vol rate/Area] 109 mL/min/{1.73_m2} Normal >60 [facility] Comment on above: Result Comment: mL/m in/1.73m2 CKD-EPI Creatinine Equation (2020) Performed By: #### L 500.2500, L503.7505, L100.0100 #### [facility] [address] [place], [address] Glucose [Mass/Vol] 89 mg/dL Normal 70-99 [facility] Comment on above: Performed By: #### L 500.2500, L503.7505, L100.0100 #### [facility] [address] [place], [address] Potassium [Moles/Vol] 3.7 mmol/L Normal 3.3-5.1 [facility] Comment on above: Performed By: #### L 500.2500, L503.7505, L100.0100 #### [facility] [address] [place], [address] Sodium [Moles/Vol] 141 mmol/L Normal 133-145 [facility] Comment on above: Performed By: #### L 500.2500, L503.7505, L100.0100 #### [facility] [address] [place], [address] Urea nitrogen [Mass/Vol] 11 mg/dL Normal 4-19 [facility] Comment on above: Performed By: #### L 500.2500, L503.7505, L100.0100 #### [facility] [address] [place], [address] Basophil percentageOrdered B y: Simon Carin on 05-30-2025 Basophils/100 WBC (Bld) 0.3 % 0-1 [facility] CBC W/Diff, Automatedon 05-09 Absolute Lymph 1.94 X10 3/uL Normal 0.83-4.51 [facility] Comment on above: Performed By: #### L 500.2500, L503.7505, L100.0100 #### [facility] [address] [place], [address] Absolute Neut 4.2 X10 3/uL Normal 2.0-7.7 [facility] Comment on above: Performed By: #### L 500.2500, L503.7505, L100.0100 #### [facility] [address] [place], [address] Basophils/100 WBC (Bld) 0.3 % Normal 0-1 [facility] Comment on above: Performed By: #### L 500.2500, L503.7505, L100.0100 #### [facility] [address] [place], [address] Eosinophils/100 WBC (Bld) 1.6 % Normal 0-5 [facility] Comment on above: Performed By: #### L 500.2500, L503.7505, L100.0100 #### [facility] [address] [place], [address] Erythrocyte distribution width (RBC) [Ratio] 13.4 % Normal 11.6-14.6 [facility] Comment on above: Performed By: #### L 500.2500, L503.7505, L100.0100 #### [facility] [address] [place], [address] Hematocrit (Bld) [Volume fraction] 38.5 % Normal 37-47 [facility] Comment on above: Performed By: #### L 500.2500, L503.7505, L100.0100 #### [facility] [address] [place], [address] Hemoglobin (Bld) [Mass/Vol] 12.4 g/dL Normal 12.0-15.0 [facility] Comment on above: Performed By: #### L 500.2500, L503.7505, L100.0100 #### [facility] [address] [place], [address] IG% 0.400 Normal 0.0-0.9 [facility] Comment on above: Result Comment: IG% - Immature Granulocytes (promyelocytes, myelocytes and metamyelocytes) > 1% indicates that a LEFT SHIFT is Present. Performed By: #### L 500.2500, L503.7505, L100.0100 #### [facility] [address] [place], [address] Lymphocytes/100 WBC (Bld) 28.7 % Normal 19-41 [facility] Comment on above: Performed By: #### L 500.2500, L503.7505, L100.0100 #### [facility] [address] [place], [address] MCH (RBC) [Entitic mass] 28.8 pg Normal 27.0-32.0 [facility] Comment on above: Performed By: #### L 500.2500, L503.7505, L100.0100 #### [facility] [address] [place], [address] MCHC (RBC) [Mass/Vol] 32.2 g/dL Normal 32-36 [facility] Comment on above: Performed By: #### L 500.2500, L503.7505, L100.0100 #### [facility] [address] [place], [address] MCV (RBC) [Entitic vol] 89.3 fL Normal 81-99 [facility] Comment on above: Performed By: #### L 500.2500, L503.7505, L100.0100 #### [facility] [address] [place], [address] Monocytes/100 WBC (Bld) 6.2 % Normal 0-10 [facility] Comment on above: Performed By: #### L 500.2500, L503.7505, L100.0100 #### [facility] [address] [place], [address] Neutrophils/100 WBC (Bld) 62.8 % Normal 47-70 [facility] Comment on above: Performed By: #### L 500.2500, L503.7505, L100.0100 #### [facility] [address] [place], [address] Nucleated RBC (Bld) [#/Vol] 0 10*3/uL Normal 0-5 [facility] Comment on above: Performed By: #### L 500.2500, L503.7505, L100.0100 #### [facility] [address] [place], [address] Platelet mean volume (Bld) [Entitic vol] 10.7 fL Normal 6.2-12.0 [facility] Comment on above: Performed By: #### L 500.2500, L503.7505, L100.0100 #### [facility] [address] [place], [address] Platelets (Bld) [#/Vol] 262 10*3/uL Normal 150-450 [facility] Comment on above: Performed By: #### L 500.2500, L503.7505, L100.0100 #### [facility] [address] [place], [address] RBC (Bld) [#/Vol] 4.31 10*6/uL Normal 4.2-5.4 [facility] Comment on above: Performed By: #### L 500.2500, L503.7505, L100.0100 #### [facility] [address] [place], [address] RDW SD 43.8 fl Normal 35.1-43.9 [facility] Comment on above: Performed By: #### L 500.2500, L503.7505, L100.0100 #### [facility] [address] [place], [address] WBC (Bld) [#/Vol] 6.8 10*3/uL Normal 4.4-11.0 [facility] Comment on above: Performed By: #### L 500.2500, L503.7505, L100.0100 #### [facility] [address] [place], [address] Carbon dioxide, total [Moles /volume] in Central venous bloodOrdered By: Simon Del Rosario on 05-30-2025 CO2 [Moles/Vol] 25.0 mmol/L 21.0-32.0 [facility] Cardiology Visit Reporton Cardiology Visit Report [facility] [address] [place] [address] OFFICE VISIT Date of Service: 05/30/25 MR#: [id number] Acct: [id number] Name: LILLIE HOLLAND Rep #: [id number] : 1975 Provider: Dr. Simon Del Rosario MD Age/Sex: 49/F Location: [facility] Status: Signed HPI HPI History of Present [...] Pulse 71 Intake Visit Reasons: NOEMI ([facility]) Benefit Specialist Required: No Accompanied by: Self Is patient [...] Positive for (more content not included)... Normal [facility] Chloride assayOrdered By: Kishore Del Rosario on 05-30-2025 Chloride [Moles/Vol] 105 mmol/L 98-108 [facility] Eosinophil percentageOrdered By: Simon Del Rosario on 05-30-2025 Eosinophils/100 WBC (Bld) 1.6 % 0-5 [facility] Erythrocyte distribution wid th ratioOrdered By: Simon Del Rosario on 05-30-2025 Erythrocyte distribution width (RBC) [Ratio] 13.4 % 11.6-14.6 [facility] Erythrocyte distribution wid th standard deviationOrdered By: Simon Del Rosario on 05-30-2025 Erythrocyte distribution width (RBC) [Ratio] 43.8 fl 35.1-43.9 [facility] Glomerular filtration rate ( GFR) estimation/1.73 sq m using serum, plasma, or whole bOrdered By: Simon Del Rosario on 05-30-2025 GFR/1.73 sq M.predicted among non-blacks MDRD (S/P/Bld) [Vol rate/Area] 109 mL/min/{1.73_m2} >60 [facility] Comment on above: mL/min/1.73m2 CKD-EP I Creatinine Equation (2020) Hematocrit Auto (Bld) [Volum e fraction]Ordered By: Simon [facility] on 05-30-2025 Hematocrit (Bld) [Volume fraction] 38.5 % 37-47 [facility] Hemoglobin measurementOrdere d By: [facility] on 05-30-2025 Hemoglobin (Bld) [Mass/Vol] 12.4 g/dL 12.0-15.0 [facility] Immature granulocytes/100 WB C Auto (Bld)Ordered By: [facility] on 05-30-2025 Immature granulocytes/100 WBC (Bld) 0.400 % 0.0-0.9 [facility] Comment on above: IG% - Immature Granu locytes (promyelocytes, myelocytes and metamyelocytes) > 1% indicates that a LEFT SHIFT is Present. L503.7505on 05-30-2025 Natriuretic peptide B (Bld) [Mass/Vol] 164 pg/mL Normal <=900 [facility] Comment on above: Result Comment: Hear t Failure Unlikely: < 300 pg/mL Heart Failure Likely < 50 Years: > 450 pg/mL 50-75 Years: > 900 pg/mL >75 Years: > 1800 pg/mL Performed By: #### L 500.2500, L503.7505, L100.0100 #### [facility] [address] [place] [address], [id number] MCV (mean corpuscular volume ) determinationOrdered By: Simon Carin on 05-30-2025 MCV (RBC) [Entitic vol] 89.3 fL 81-99 [facility] Mean corpuscular hemoglobin (MCH) determinationOrdered By: Simon Carin on 05-30-2025 MCH (RBC) [Entitic mass] 28.8 pg 27.0-32.0 [facility] Mean corpuscular hemoglobin concentration (MCHC) determinationOrdered By: Simon Carin on 05-30-2025 MCHC (RBC) [Mass/Vol] 32.2 g/dL 32-36 [facility] Mean platelet volume determi nationOrdered By: Simonkaris Del Rosario on 05-30-2025 Platelet mean volume (Bld) [Entitic vol] 10.7 fL 6.2-12.0 [facility] Monocyte percentageOrdered B y: [place] Carin on 05-30-2025 Monocytes/100 WBC (Bld) 6.2 % 0-10 [facility] Natriuretic peptide.B prohor brayden N-Terminal [Mass/volume] in Serum or PlasmaOrdered By: [place] Del Rosario on 05-30-2025 Natriuretic peptide.B prohormone N-Terminal [Mass/Vol] 164 pg/mL <900 [facility] Comment on above: Heart Failure Unlike ly: < 300 pg/mLHeart Failure Likely< 50 Years: > 450 pg/mL50-75 Years: > 900 pg/mL>75 Years: > 1800 pg/mL Neutrophil percentageOrdered By: [place] Carin on 05-30-2025 Neutrophils/100 WBC (Bld) 62.8 % 47-70 [facility] Nucleated red blood cell per centageOrdered By: [place] Carin on 05-30-2025 Nucleated RBC/100 WBC (Bld) [Ratio] 0 % 0-5 [facility] Platelet countOrdered By: Cy ril Carin on 05-30-2025 Platelets (Bld) [#/Vol] 262 10*3/uL 150-450 [facility] Potassium measurement (mass/ volume)Ordered By: Simonkrais Del Rosario on 05-30-2025 Potassium (Unsp spec) [Mass/Vol] 3.7 mmol/L 3.3-5.1 [facility] RBC Auto (Bld) [#/Vol]Ordere d By: [place] Del Rosario on 05-30-2025 RBC (Bld) [#/Vol] 4.31 10*6/uL 4.2-5.4 [facility] Serum creatinine measurement (mass/volume)Ordered By: Simonjaya Del Rosario on 05-30-2025 Creatinine [Mass/Vol] 0.61 mg/dL Low 0.70-1.20 [facility] Serum glucose measurement (m ass/volume)Ordered By: Simon Del Rosario on 05-30-2025 Glucose [Mass/Vol] 89 mg/dL 70-99 [facility] Serum or plasma calcium yasmeen urement (mass/volume)Ordered By: Simon Del Rosario on 05-30-2025 Calcium [Mass/Vol] 9.5 mg/dL 7.6-11.0 [facility] Serum or plasma urea nitroge n measurement (mass/volume)Ordered By: Simon Carin on 05-30-2025 Urea nitrogen [Mass/Vol] 11 mg/dL 4-19 [facility] Sodium levelOrdered By: Iker Del Rosario on 05-30-2025 Sodium [Moles/Vol] 141 mmol/L 133-145 [facility] White blood cell (WBC) count Ordered By: [place] [facility] on 05-30-2025 WBC (Bld) [#/Vol] 6.8 10*3/uL 4.4-11.0 [facility] Colonoscopy Reporton 025 Colonoscopy Report [facility] Medical Records Department [address] [place] [address] Colonoscopy Report MR#: [id number] Acct: [id number] Name: LILLIE HOLLAND Rep #: [id number] : 1975 49 From: Maddy Amador MD PCP: LINA Mckeon Status:[facility] Patient Name: Lillie Holland Procedure Date: 04/23/2025 8:05 AM Date of : 1975 Age: 49 Procedure: Colonoscopy Indications: High risk colon cancer surveillance: Personal history of colonic polyps Providers: Maddy mAador MD Referring MD: Lina Mckeon Medicines: Monitored [...] pathology results. Procedure Code(s): --- Professional --- 79282, PT, Colonoscopy, flexible; with removal of tumor(s), polyp(s), or other lesion(s) by snare technique Diagnosis Code(s): --- Professional --- Z86.010, Personal history of colonic polyps D12.5, Benign neoplasm of sigmoid colon CPT copyright 2021 [employer]. All rights reserved. The codes documented in this report are preliminary and upon spool cleaner hand review may be revised to meet current compliance requirements. MD Maddy Jc MD 04/23/2025 8:41:10 AM This report has been signed electronically. Number of Addenda: 0 Note Initiated On: 04/23/2025 8:05 AM 04/23/25 0841 Date Maddy Gómez Signature: Date (if indicated) CC: Dr. Maddy Amador MD; LINA Mckeon Date Dictated: 04/23/25804 Date Transcribed: Manager Employment: TR Signed [facility] MR/POSTOP.ANEon 04-23-2025 MR/POSTOP.[facility] Medical Records Department [address] [place] [address] Anesthesia Postop Eval I 04/23/25 0846 MR#: [id number] Acct: [id number] Name: LILLIE HOLLAND Rep #: [id number] : 1975 49 From: Jesse Gore PCP: LINA Mckeon Status:[facility] Y Race: C Location: [place] [address] Anesthesia: Postop Eval I Current Vital Signs [...] Date Jesse Gómez Signature: Date CC: Signed [facility] MR/EIFRECMY7ul 04-23-2025 MR/POSTOPAN2 [facility] Medical Records Department [address] [place] [address] Anesthesia Postop Eval II 04/23/25 1229 MR#: [id number] Acct: [id number] Name: LILLIE HOLLAND Rep #: [id number] : 1975 49 From: Yovani Walker MD PCP: LINA Mckeon Status:DEP [facility] Y Race: C Location: EN Anesthesia Postop [...] MD Cosigner Signature: Date CC: Signed Normal [facility] Surgery Specimen Level Katheryn 04-23-2025 Surgery Specimen Level IV Patient Age/Sex Location Account Attending Physician LILLIE HOLLAND 49/F EN [id number] Dr. Maddy Amador MD Specimen: [id number] Received: 04/23/25 Status: AMRIT Winters Num: [id number] Spec Type: COLON BX Subm Dr: Dr. [...] specimen is totally submitted in one cassette. CPT:95982 RI/mr 04/23/2025 Patient Age/Sex Location Account Attending Physician LILLIE HOLLAND 49/F EN [id number] Dr. Maddy Amador MD Signed (signature on file) Dr. Tayler Jovel MD 05/01/25 0851 Normal [facility] Comment on above: Performed By: #### P MAHESH #### [facility] Laboratory [facility] [place], [address] MR/Florina 04-19-2025 MR/STEVO.LORRAINE [facility] Medical Records Department [address] [place] [address] PAT - Anesthesia 04/19/25 1354 MR#: [id number] Acct: [id number] Name: LILLIE HOLLAND Rep #: [id number] : 1975 49 From: Hans Blair MD PCP: LINA Mckeon Status:PRE [facility] Y Race: C Location: EN Pre-Assessment Diagnosis/Proposed Procedure Planned Operative Procedure(s): COLONOSCOPY-OA Anesthesia History Anesthesia History - deicer tester: Anesthesia History - deicer tester Hx Hospitalization No 04/19/25 12:09 Any Problems [...] take am of surgery PONV PONV - deicer tester: PONV - deicer tester Female Yes 04/19/25 12:09 HX of Motion [...] 04/16/25 08:57 Respiratory Assessment Respiratory Assessment - deicer tester: Respiratory Tract Infection Hx - deicer tester Hx Respiratory Tract Infection No 04/19/25 12:09 STOP Sleep Apnea STOP Sleep Apnea - deicer tester: STOP Sleep Apnea - deicer tester Hx Hypertension No 04/19/25 12:09 Hx Sleep [...] Tobacco Use History Tobacco Use History - deicer tester: Tobacco Use History - deicer tester Tobacco Use Smoking Status Former smoker 04/19/25 12:09 Hx Tobacco Use Yes 04/19/25 12:09 Years Smoking Packs Smoked per Day Smoking Cessation Date was Yes - quit smoking within 15 04/19/25 12:09 within the last 15 years years Hx Smoking Cessation Date Hx Smoking Cessation Counseling Hematologic Medial History Hematologic Hx - deicer tester: Hematologic Medical Hx - program manager environmental planning Hx of Blood Transfusion No 04/19/25 12:09 [...] confused, unrespo /Reproduction History /Reproductive History - deicer tester: /Reproductive Hx- deicer tester Hx Now No 04/19/25 12:09 Gestational Age [...] 1 tab (more content not included)... Normal [facility] Pulmonary Visit Reporton Pulmonary Visit Report [facility] [place] [address] [place] [address] OFFICE VISIT Date of Service: 04/16/25 MR#: [id number] Acct: [id number] Name: LILLIE HOLLNAD Rep #: [id number] : 1975 Provider: PREETHI Mejía Age/Sex: 49/F Location: [facility].PMW Status: Signed Assessment and Plan Assessment and [...] Additional Comments: This note was generated with Reading Rainbow dictation software. It may contain incorrect words, [...] you recall, she has a greater than 24-reyz-bffn smoking history but quit completely back in [...] exertion Interpr (more content not included)... 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 Dangelo Muller DO Signed Normal [facility] Echo Complete W/ Contraston 03-23-2025 Echo Complete W/ Contrast [facility] Cardiovascular Services [address] [place] [address] Echo Complete W/ Contrast 03/23/25 1400 MR#: [id number] Acct: [id number] Name: LILLIE HOLLAND Rep #: [id number] : 1975 49 From: Simon Del Rosario MD Attending Dr: Ashanti Mejía NP-C Status: RE G CLI Ordering Dr: Ashanti Mejía NP AMPOULE SEALER-C Date: Location: [facility] Sex: F C Admitted: [...] Date Dictated: 03/23/25 1400 Date Transcribed: 03/23/251655 Manager Employment: Signed Normal [facility] Pulmonary Visit Reporton Pulmonary Visit Report [facility] Pulmonary Medicine of [address] [place] [address] OFFICE VISIT Date of Service: 03/05/25 MR#: [id number] Acct: [id number] Name: LILLIE HOLLAND Rep #: [id number] : 1975 Provider: PREETHI Mejía Age/Sex: 49/F Location: [facility].PMW Status: Signed Assessment and Plan Assessment and [...] Additional Comments: This note was generated with Reading Rainbow dictation software. It may contain incorrect words, [...] you recall, she has a greater than 28-zwhv-exjm smoking history but quit completely back in [...] concerning pulmon (more content not included)... Normal [facility] FOOT COMPLETE RTon FOOT COMPLETE RT [address] [address] Patient: LILLIE HOLLAND Phone#: : 1975 Age: 49 Gender: F Pt. Type: Out Account: [id number] Location: 052 Ordering: LEONORA SALDIVAR Exam Date: 01/08/2025/12:31 Family Phys: Charge Code: 331474 Physician: Humphreys Order #: [id number] Dose#: PROCEDURE: X-RAY FOOT RT COMPLETE MIN 3 VIEWS COMPARISON: [facility], XR, FOOT RT COMPLETE, 08/04/2021, 14:47. INDICATIONS: [...] Moon MD on 01/08/2025 at 15:42 Normal [facility] Low Dose CT Lung Screeningon 12-11-[address] Lung Screening [facility] Imaging Services [address] [place] [id number] Lung Screening MR#: [id number] Acct: [id number] Name: LILLIE HOLLAND Rep #: [id number] : 1975 F 49 From: Mendoza Reyes MD PCP: LINA Mckeon Status: REG CLI Study: Low Dose CT Lung Screening Date of Exam: 12/11 Exam# [id number] Ordering Dr: Ashanti Mejía AMPOULE SEALER AMPOULE SEALER-C PROCEDURE: LOW DOSE CT LUNG SCREENING REASON [...] potentially significant findings (non-lung cancer) Reading Location: [facility] CC: PREETHI Mejía; LINA Mckeon Manager Employment: Signed Normal [facility] Pulmonary Visit Reporton Pulmonary Visit Report [facility] Pulmonary Medicine [address] [place] [address] OFFICE VISIT Date of Service: 08/28/24 MR#: [id number] Acct: [id number] Name: LILLIE HOLLAND Rep #: [id number] : 1975 Provider: PREETHI Mejía Age/Sex: 48/F Location: [facility].PMW Status: Signed Assessment and Plan Assessment and [...] pulmonary disease Plan Details Follow Up: 12/09/24 ([facility]) HPI 3 M FU Chief Complaint: Test [...] you recall, she has a greater than 90-ulqb-ciep smoking history but quit completely back in [...] Chief Complaint: Shortness of breath on exertion Benefit Specialist Required: No DME Vendor: n/a Accompanied by: [...] disease) Vasculitis Cough [facility] History ... 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 Normal [facility] CBC (INCLUDES DIFF/PLT)on Basophils (Bld) [#/Vol] 0.021 10*3/uL Normal 0-200 [facility] Comment on above: Performed By: #### 6 399, 72198, 6310 #### [facility] [address], [address] [place] [address] Copping Machine Operator: Zelalem Roach MD Basophils/100 WBC (Bld) 0.4 % Normal [facility] Comment on above: Performed By: #### 6 399, 45650, 7600 #### [facility] [place] [address] Copping Machine Operator: Zelalem Roach MD Eosinophils (Bld) [#/Vol] 0.08 10*3/uL Normal 15-500 [facility] Comment on above: Performed By: #### 6 399, 62567, 7600 #### [facility] [address], [address] [place] [address] Copping Machine Operator: Zelalem Roach MD Eosinophils/100 WBC (Bld) 1.5 % Normal [facility] Comment on above: Performed By: #### 6 399, 33972, 8310 #### [facility] [address], [address] [place] [address] Copping Machine Operator: Zelalem Roach MD Erythrocyte distribution width (RBC) [Ratio] 12.7 % Normal 11.0-15.0 [facility] Comment on above: Performed By: #### 6 399, 81994, 0 #### [facility] of [place] [address] Copping Machine Operator: Zelalem Roach MD Hematocrit (Bld) [Volume fraction] 39.2 % Normal 35.0-45.0 [facility] Comment on above: Performed By: #### 6 399, 55015, 0 #### [facility] of [place] [address] Copping Machine Operator: Zelalem Roach MD Hemoglobin (Bld) [Mass/Vol] 12.3 g/dL Normal 11.7-15.5 [facility] Comment on above: Performed By: #### 6 399, , 0 #### [facility] [place] [address] Copping Machine Operator: Zelalem Roach MD Lymphocytes (Bld) [#/Vol] 1.659 10*3/uL Normal 850-3900 [facility] Comment on above: Performed By: #### 6 399, 47642, 0 #### [facility] of [place] [address] Copping Machine Operator: Zelalem Roach MD Lymphocytes/100 WBC (Bld) 31.3 % Normal [facility] Comment on above: Performed By: #### 6 399, , 0 #### [facility] of [place] [address] Copping Machine Operator: Zelalem Roach MD MCH (RBC) [Entitic mass] 29.1 pg Normal 27.0-33.0 [facility] Comment on above: Performed By: #### 6 399, 58746, 0 #### [facility] of [place] [address] Copping Machine Operator: Zelalem Roach MD MCHC (RBC) [Mass/Vol] 31.4 g/dL Low 32.0-36.[address] [facility] Comment on above: Performed By: #### 6 399, 79837, 7600 #### [facility] of [place] [address] Copping Machine Operator: Zelalem Roach MD MCV (RBC) [Entitic vol] 92.9 fL Normal 80.0-100.0 [facility] Comment on above: Performed By: #### 6 399, 33440, 7600 #### [facility] [place] [address] Copping Machine Operator: Zelalem Roach MD Monocytes (Bld) [#/Vol] 0.408 10*3/uL Normal 200-950 [facility] Comment on above: Performed By: #### 6 399, 63097, 0 #### [facility] of [place] [address] Copping Machine Operator: Zelalem Roach MD Monocytes/100 WBC (Bld) 7.7 % Normal [facility] Comment on above: Performed By: #### 6 399, 04162, 0 #### [facility] [place] [address] Copping Machine Operator: Zelalem Roach MD Neutrophils (Bld) [#/Vol] 3.132 10*3/uL Normal 9601-2275 [facility] Comment on above: Performed By: #### 6 399, 98048, 7600 #### [facility] of [place] [address] Copping Machine Operator: Zelalem Roach MD Neutrophils/100 WBC (Bld) 59.1 % Normal [facility] Comment on above: Performed By: #### 6 399, 04741, 7600 #### [facility] [place] [address] Copping Machine Operator: Zelalem Roach MD Platelet mean volume (Bld) [Entitic vol] 10.4 fL Normal 7.5-12.5 [facility] Comment on above: Performed By: #### 6 399, 41326, 7600 #### [facility] of [address] [place] [address] Copping Machine Operator: Zelalem Roach MD Platelets (Bld) [#/Vol] 282 10*3/uL Normal 140-400 [facility] Comment on above: Performed By: #### 6 399, 85038, 7600 #### [facility] of [address], [address] [place] [address] Copping Machine Operator: Zelalem Roach MD RBC (Bld) [#/Vol] 4.22 10*6/uL Normal 3.80-5.10 [facility] Comment on above: Performed By: #### 6 399, 66374, 7600 #### [facility] of [place] [address] Copping Machine Operator: Zelalem Roach MD WBC (Bld) [#/Vol] 5.3 10*3/uL Normal 3.8-10.8 [facility] Comment on above: Performed By: #### 6 399, 95522, 7600 #### [facility] of [place] [address] Copping Machine Operator: Zelalem Roach MD [facility] 06-24-2024 Albumin [Mass/Vol] 4.3 g/dL Normal 3.6-5.1 [facility] Comment on above: Performed By: #### 6 399, 73905, 7600 #### [facility] [place] [address] Copping Machine Operator: Zelalem Roach MD Albumin/Globulin [Mass ratio] 1.7 {ratio} Normal 1.0-2.5 [facility] Comment on above: Performed By: #### 6 399, 90040, 7600 #### [facility] of [place] [address] Copping Machine Operator: Zelalem Roach MD ALP [Catalytic activity/Vol] 92 U/L Normal 31-125 [facility] Comment on above: Performed By: #### 6 399, 46240, 7600 #### [facility] of [address] [address] Copping Machine Operator: Zelalem Roach MD ALT [Catalytic activity/Vol] 16 U/L Normal 6-29 [facility] Comment on above: Performed By: #### 6 399, 91318, 7600 #### [facility] of [address], [address] [place] [address] Copping Machine Operator: Zelalem Roach MD AST [Catalytic activity/Vol] 15 U/L Normal 10-35 [facility] Comment on above: Performed By: #### 6 399, 83792, 7600 #### [facility] of [address], [address] [place] [address] Copping Machine Operator: Zelalem Roach MD Bilirubin [Mass/Vol] 0.4 mg/dL Normal 0.2-1.2 [facility] Comment on above: Performed By: #### 6 399, 66540, 0 #### [facility] of [address], [address] [place] [address] Copping Machine Operator: Zelalem Roach MD BUN/CREATININE RATIO SEE NOTE: Normal 6-22 [facility] Comment on above: Result Comment: Not Reported: BUN and Creatinine are within reference range. Performed By: #### 6 399, 06463, 0 #### [facility] of [place] [address] Copping Machine Operator: Zelalem Roach MD Calcium [Mass/Vol] 9.5 mg/dL Normal 8.6-10.2 [facility] Comment on above: Performed By: #### 6 399, 83494, 7600 #### [facility] of [place] [address] Copping Machine Operator: Zelalem Roach MD Chloride [Moles/Vol] 98 mmol/L Normal 98-110 [facility] Comment on above: Performed By: #### 6 399, 07545, 7600 #### [facility] of [place] [address] Copping Machine Operator: Zelalem Roach MD CO2 [Moles/Vol] 29 mmol/L Normal 20-32 [facility] Comment on above: Performed By: #### 6 399, 80236, 0 #### [facility] [place] [address] Copping Machine Operator: Zelalem Roach MD Creatinine [Mass/Vol] 0.60 mg/dL Normal 0.50-0.[address] [facility] Comment on above: Performed By: #### 6 399, 31556, 0 #### [facility] [place] [address] Copping Machine Operator: Zelalem Roach MD GFR/1.73 sq M.predicted among non-blacks MDRD (S/P/Bld) [Vol rate/Area] 110 mL/min/{1.73_m2} Normal > OR = 60 [facility] Comment on above: Performed By: #### 6 399, , 0 #### [facility] [place] [address] Copping Machine Operator: Zelalem Roach MD Globulin (S) [Mass/Vol] 2.5 g/dL Normal 1.9-3.7 [facility] Comment on above: Performed By: #### 6 399, 07320, 0 #### [facility] [place] [address] Copping Machine Operator: Zelalem Roach MD Glucose [Mass/Vol] 112 mg/dL High 65-99 [facility] Comment on above: Result Comment: Fasting reference interval For someone without known diabetes, a glucose value between 100 and 125 mg/dL is consistent with prediabetes and should be confirmed with a follow-up test. Performed By: #### 6 399, 58797, 7600 #### [facility] [place] [address] Copping Machine Operator: Zelalem Roach MD Potassium [Moles/Vol] 3.9 mmol/L Normal 3.5-5.[address] [facility] Comment on above: Performed By: #### 6 399, 74467, 0 #### [facility] [address] [place] [address] Copping Machine Operator: Zelalem Roach MD Protein [Mass/Vol] 6.8 g/dL Normal 6.1-8.1 [facility] Comment on above: Performed By: #### 6 399, 89176, 7600 #### [facility] of [address], [address] [place] [address] Copping Machine Operator: Zelalem Roach MD Sodium [Moles/Vol] 136 mmol/L Normal 135-146 [facility] Comment on above: Performed By: #### 6 399, 93866, 7600 #### [facility] of [address], [address] [place] [address] Copping Machine Operator: Zelalem Roach MD Urea nitrogen [Mass/Vol] 13 mg/dL Normal 7-25 [facility] Comment on above: Performed By: #### 6 399, 98492, 7600 #### [facility] of [address], [address] [place] [address] Copping Machine Operator: Zelalem Roach MD FSH [CCL]on 06-24-2024 FSH 20.1 mIU/mL Normal See comment [facility] Comment on above: Result Comment: Refe rence range: Follicular: 3.5-12.5 mIU/mL Ovulation: 4.7-21.5 mIU/mL Luteal: 1.7-7.7 mIU/mL Postmenopausal: 25.8-134.8 mIU/mL [facility] [address] [place] [address] Felix Nowak III, M.D. [id number] Performed By: #### 2 88309 #### [facility],[address] [place] [address] INSULIN [CCL]on 06-24-2024 Insulin 6.5 mU/L Normal 3.0-25.0 [facility] Comment on above: Result Comment: [facility] [address] [place] [address] Felix Nowak III, M.D. [id number] Performed By: #### 2 12767 #### [facility],[address] [place] [address] LIPID PANEL, STANDARDon 06-08 Cholesterol [Mass/Vol] 197 mg/dL Normal <200 [facility] Comment on above: Performed By: #### 6 399, 35060, 7600 #### [facility] [place] [address] Copping Machine Operator: Zelalem Roach MD Cholesterol in HDL [Mass/Vol] 73 mg/dL Normal > OR = 50 [facility] Comment on above: Performed By: #### 6 399, 46703, 7600 #### [facility] [place] [address] Copping Machine Operator: Zelalem Roach MD Cholesterol in LDL [...] LDL-C. Cesario SS et al. FREDA. 2013;310(19): 4873-3452 (http://education.Hidden Radio.Kofikafe/faq/NPP208) Performed By: #### 6 399, 80797, 0 #### [facility] [place] [address] Copping Machine Operator: Zelalem Roach MD Cholesterol.total/Cho lesterol in HDL [Mass ratio] 2.7 {ratio} Normal <5.0 [facility] Comment on above: Performed By: #### 6 399, 23046, 7600 #### [facility] [place] [address] Copping Machine Operator: Zelalem Roach MD NON HDL CHOLESTEROL 124 mg/dL (calc) Normal <130 [facility] Comment on above: Result Comment: For patients with diabetes plus 1 major ASCVD risk factor, treating to a non-HDL-C goal of <100 mg/dL (LDL-C of <70 mg/dL) is considered a therapeutic option. Performed By: #### 6 399, 09975, 7600 #### [facility] [address] [place] [address] Copping Machine Operator: Zelalem Roach MD Triglyceride [Mass/Vol] 179 mg/dL High <150 [facility] Comment on above: Performed By: #### 6 399, 34307, 7600 #### [facility] [address] [place] [address] Copping Machine Operator: Zelalem Roach MD [facility] with eGFR 06-23-2024 Potassium [Moles/Vol] 3.9 mmol/L Normal 3.5 - 5.3 mmol/L [facility]. Comment on above: Performed By: #### 2 31613 #### [facility],[address] [place] [address] AGE 48 years Normal [facility] Comment on above: Performed By: #### 2 03305 #### [facility],[address] [place] [address] Albumin [Mass/Vol] 3.4 g/dL Normal 3.4 - 5.0 [facility] Comment on above: Performed By: #### 2 98679 #### [place] [address] Albumin/Globulin [Mass ratio] 0.9 {ratio} Normal 0.9 - 1.6 [facility] Comment on above: Performed By: #### 2 00582 #### [place] [address] ALK PHOS 103 U/L Normal 46 - 116 [facility] Comment on above: Performed By: #### 2 95869 #### [place] [address] ALT [Catalytic activity/Vol] 26 U/L Normal 16 - 63 [facility] Comment on above: Performed By: #### 2 27008 #### [facility],[address] [place] [address] Anion gap [Moles/Vol] 11 mmol/L Normal 10 - 20 [facility] Comment on above: Performed By: #### 2 36483 #### [facility],[address] [place] [address] AST [Catalytic activity/Vol] 17 U/L Normal 13 - 39 [facility] Comment on above: Performed By: #### 2 16233 #### [facility],[address] [place] [address] B/C RATIO 19 ratio Normal 0 - 30 [facility] Comment on above: Performed By: #### 2 86373 #### [facility],[address] [place] [address] Bilirubin [Mass/Vol] 0.5 mg/dL Normal 0.2 - 1.0 [facility] Comment on above: Performed By: #### 2 64915 #### [facility],[address] [place] [address] 24572 Calcium [Mass/Vol] 9.6 mg/dL Normal 8.5 - 10.1 [facility] Comment on above: Performed By: #### 2 72450 #### [facility],[address] [place] [address] 22481 Chloride [Moles/Vol] 101 mmol/L Normal 98 - 107 [facility] Comment on above: Performed By: #### 2 95540 #### [facility],[address] [place] [address]479 CMP with eGFR Normal [facility] Comment on above: Result Comment: COMP REHENSIVE METABOLIC PANEL Performed By: #### 2 44423 #### [facility],[address] [place] [address] 71273 CO2 [Moles/Vol] 30.9 mmol/L Normal 21.0 - 32.0 [facility] Comment on above: Performed By: #### 2 00017 #### [address] [address] Creatinine [Mass/Vol] 0.58 mg/dL Normal 0.55 - 1.02 [facility] Comment on above: Performed By: #### 2 20[address] #### [place] [id number] GFR/1.73 sq M.predicted among non-blacks MDRD (S/P/Bld) [Vol rate/Area] mL/min/{1.73_m2} Normal 60 - 999 [facility] Comment on above: Performed By: #### 2 [address] #### [place] [id number] Result Comment: ACCO RDING TO THE NATIONAL KIDNEY DISEASE EDUCATION PROGRAM(NKDE), A NORMAL eGFR IS A VALUE GREATER THAN OR EQUAL TO 60 ML/MIN/1.73 SQ METERS. CHRONIC KIDNEY DISEASE: <60mL/MIN/1.73 SQ METERS KIDNEY FAILURE: <15mL/MIN/1.73 SQ METERS THIS TEST SHOULD ONLY BE USED FOR PATIENTS 18 YEARS OF AGE AND OLDER. Globulin (S) [Mass/Vol] 3.6 g/dL Normal 1.5 - 3.8 [facility] Comment on above: Performed By: #### 2 [address] #### [address] [address] Glucose [Mass/Vol] 96 mg/dL Normal 74 - 106 [facility] Comment on above: Performed By: #### 2 21745 #### [address] [address] Protein [Mass/Vol] 7.0 g/dL Normal 6.4 - 8.2 [facility] Comment on above: Performed By: #### 2 55663 #### [place] [id number] Sodium [Moles/Vol] 139 mmol/L Normal 136 - 145 [facility] Comment on above: Performed By: #### 2 26189 #### [facility],[address] [place] [address] Urea nitrogen [Mass/Vol] 11 mg/dL Normal 7 - 18 [facility] Comment on above: Performed By: #### 2 62638 #### [facility],[address] [place] [address] FSH SerPl-aCncon 06-23-2024 Follitropin Qn 20.1 m[IU]/mL Normal See comment [facility] Comment on above: Order Comment: Speci men Type: BLOOD SPECIMEN Ordering Facility: [facility] Address: [address] [place] [address] Result Comment: Refe rence range: Follicular: 3.5-12.5 mIU/mL Ovulation: 4.7-21.5 mIU/mL Luteal: 1.7-7.7 mIU/mL Postmenopausal: 25.8-134.8 mIU/mL Performed By: #### 1 5067-2, 08432-5 #### [facility] CLIA [id number] [address] [place] [address] [place] HEMOGLOBIN A1C (POM)on 06-23 Glucose [Mass/Vol] 88.2 mg/dL High 0.0 - 0.0 [facility] Comment on above: Result Comment: BLDo HEMOGLOBIN A1C REFERENCE RANGESBLDo Suggested Diagnosis HbA1c(%) HbA1C (mmol/mol Diabetic >/=6.5 >/=48 Prediabetes 5.7 - 6.4 39 - 47 Normal <5.7 <39 Performed By: #### 2 20245 #### [facility],[address] [place] [address] HbA1c (Bld) [Mass fraction] 4.7 % Normal 0.0 - 6.5 [facility] Comment on above: Performed By: #### 2 70035 #### [facility],[address] [place], [place] [id number] Insulin SerPl-aCncon 024 Insulin Qn 6.5 u[IU]/mL Normal 3.0-25.0 [facility] Comment on above: Order Comment: Speci men Type: BLOOD SPECIMEN Ordering Facility: [facility] Address: [address] [place] [address] Performed By: #### 1 5067-2, 32093-3 #### [facility] CLIA [id number] [address] [place] [address] [place] LIPID PROFILEon 06-23-2024 Cholesterol [Mass/Vol] 196 mg/dL Normal 0 - 240 [facility] Comment on above: Performed By: #### 2 67148 #### [facility],[address] [place] [address] Cholesterol in HDL [Mass/Vol] 72 mg/dL High 40 - 60 [facility] Comment on above: Performed By: #### 2 98326 #### [facility],[address] [place] [address] Cholesterol in LDL [Mass/Vol] 98 mg/dL Normal 0 - 129 [facility] Comment on above: Performed By: #### 2 96698 #### [facility],[address] [place] [address] Cholesterol.total/Cho lesterol in HDL [Mass ratio] 2.7 {ratio} Normal 0.0 - 5.0 [facility] Comment on above: Performed By: #### 2 53086 #### [facility],[address] [place] [address] Lipid 1996 panel Normal [facility] Comment on above: Result Comment: LIPI D PROFILE Performed By: #### 2 01620 #### [facility],[address] [place] [address] Triglyceride [Mass/Vol] 131 mg/dL Normal 0 - 150 [facility] Comment on above: Performed By: #### 2 40849 #### [facility],[address] [place] [address] Laboratory - Chemistry and C hemistry - challengeon 06-23-2024 Albumin [Mass/Vol] 4.3 g/dL Normal 3.6 - 5.1 g/dL [facility] [employer] Albumin/Globulin [Mass ratio] 1.7 {ratio} Normal 1.0 - 2.5 [facility] [employer] ALP [Catalytic activity/Vol] 92 U/L Normal 31 - 125 U/L [facility] [employer] ALT [Catalytic activity/Vol] 16 U/L Normal 6 - 29 U/L [employer] AST [Catalytic activity/Vol] 15 U/L Normal 10 - 35 U/L [facility] [employer] [facility] [employer] Bilirubin [Mass/Vol] 0.4 mg/dL Normal 0.2 - 1 .2 mg/dL [employer] Calcium [Mass/Vol] 9.5 mg/dL Normal 8.6 - 10. 2 mg/dL [employer] Chloride [Moles/Vol] 98 mmol/L Normal 98 - 11 0 mmol/L [employer] Cholesterol [Mass/Vol] 197 mg/dL Normal [employer] Cholesterol in HDL [Mass/Vol] 73 mg/dL Normal [employer] Cholesterol in LDL [Mass/Vol] 96 mg/dL Normal [employer] CO2 [Moles/Vol] 29 mmol/L Normal 20 - 32 mmol/L [employer] Creatinine [Mass/Vol] 0.60 mg/dL Normal 0.50 - 0.99 mg/dL [employer] GFR/1.73 sq M.predicted among non-blacks MDRD (S/P/Bld) [Vol rate/Area] 110 mL/min/{1.73_m2} Normal [facility]; [facility] Glucose [Mass/Vol] 112 mg/dL Abnormal 65 - 99 mg/dL [facility].; [facility] Protein [Mass/Vol] 6.8 g/dL Normal 6.1 - 8.1 g/dL [facility]; [facility] Sodium [Moles/Vol] 136 mmol/L Normal 135 - 146 mmol/L [facility]; [facility] Triglyceride [Mass/Vol] 179 mg/dL Abnormal [facility]; [facility] Urea nitrogen [Mass/Vol] 13 mg/dL Normal 7 - 25 mg/dL [facility]; [facility] Laboratory - Hematology and Cell countson 06-23-2024 Basophils (Bld) [#/Vol] 0.021 10*3/uL Normal 0 - 200 {cells/uL} [facility]; [facility] Basophils/100 WBC (Bld) 0.4 % Normal [facility]; [facility] Eosinophils (Bld) [#/Vol] 0.08 10*3/uL Normal 15 - 500 {cells/uL} [facility].; [facility] Eosinophils/100 WBC (Bld) 1.5 % Normal [facility]; [facility] Erythrocyte distribution width (RBC) [Ratio] 12.7 % Normal 11.0 - 15.0 % [facility].; [facility] Hematocrit (Bld) [Volume fraction] 39.2 % Normal 35.0 - 45.0 % [facility].; [facility] Hemoglobin (Bld) [Mass/Vol] 12.3 g/dL Normal 11.7 - 15.5 g/dL [facility].; [facility] Lymphocytes (Bld) [#/Vol] 1.659 10*3/uL Normal 850 - 3900 {cells/uL} [facility] [employer], [employer]. Lymphocytes/100 WBC (Bld) 31.3 % Normal [facility].; [employer], [employer]. MCH (RBC) [Entitic mass] 29.1 pg Normal 27.0 - 33.0 pg [facility] [employer] MCHC (RBC) [Mass/Vol] 31.4 g/dL Abnormal 32.0 - 36.0 g/dL [facility] [employer] [facility].; [employer] MCV (RBC) [Entitic vol] 92.9 fL Normal 80.0 - 100.0 fL [employer] [employer], [employer]. Monocytes (Bld) [#/Vol] 0.408 10*3/uL Normal 200 - 950 {cells/uL} [employer] [employer] Monocytes/100 WBC (Bld) 7.7 % Normal [facility] [employer] [facility].; [employer] Neutrophils (Bld) [#/Vol] 3.132 10*3/uL Normal 1500 - 7800 {cells/uL} [employer], [employer]. Neutrophils/100 WBC (Bld) 59.1 % Normal [employer] Platelet mean volume (Bld) [Entitic vol] 10.4 fL Normal 7.5 - 12.5 fL [employer], [employer], [employer]. Platelets (Bld) [#/Vol] 282 10*3/uL Normal 140 - 400 [employer] RBC (Bld) [#/Vol] 4.22 10*6/uL Normal 3.80 - 5.10 {Million/u L} [employer] WBC (Bld) [#/Vol] 5.3 10*3/uL Normal 3.8 - 10.8 [employer], [employer]. No Panel Informationon 06-23 BUN/CREATININE RATIO SEE NOTE: Normal 6 - 22 [facility] [employer] CHOL/HDLC RATIO 2.7 Normal [facility] [employer] [facility].; [employer] [facility]. GLOBULIN 2.5 Normal 1.9 - 3.7 [employer] [facility]. NON HDL CHOLESTEROL 124 Normal [facility] [employer] [facility].; [employer]. TSHon 06-23-2024 TSH Qn 0.60 m[IU]/L Normal 0.35 - 3.74 [facility] Comment on above: Performed By: #### 2 27765 #### [place] [id number] VITAMIN D, 25 HYDROXYon 06-08 VitD 38.30 ng/mL Normal 30.00 - 100 [facility] Comment on above: Result Comment: 25-O [...] D2 Not Established Performed By: #### 2 06521 #### [facility],[address] [place] [address] [facility] 06-15-2024 CNPN Telephone (ALVARADOGYWM) LILLIE HOLLAND ([id number]) 1975 F Date Time Provider Department 06/15/24 LAURITA JAMISON During your visit today, we recorded the following information about you: Laurita Jamison APRN.CNP 06/15/2024 3:33 PM Signed Can we contact [facility] to see if they have any labs results since 05/29. Pt was to get labs done there and I haven't receive anything. Laurita Jamison APRN.Leonor Bryant RN 06/15/2024 3:48 PM Signed Request faxed. VICK Cruz Jennifer, RN 06/16/2024 10:02 AM Signed No lab results found per [facility]. 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 CNOVon 05-29-2024 CNOV Office Visit (OBGYWM ) LILLIE HOLLAND ([id number]) 1975 F Date Time Provider Department 05/29/24 2:00 PM LAURITA JAMISON OBGYWM During your visit today, we recorded the following information about you: Blood pressure Weight 122/70 74.4 kg Laurita Jamison APRN.TRANSFORMATION SPECIALIST 05/29/2024 3:01 PM Signed Lillie Holland is a 48 year old female who presents for medication follow up HPI: she has not notice a difference with the estrace decreasing to hot flashes. She also is concerned about the unexplained weight gain, fatigue, and urinary urgency. 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 Laurita Jamison, FELICITAS.TRANSFORMATION SPECIALIST Medical Decision Making: Problems: Moderate: New problem [...] gain [ (more content not included)... Normal [facility] 3D MAMM BILAT SCREENon 05-22 3D MAMM BILAT SCREEN [place] [id number] Patient: LILLIE HOLLAND Phone#: : 1975 Age: 48 Gender: F Pt. Type: Out Account: [id number] Location: 052 Ordering: LEONORA SALDIVAR Exam Date: 05/22/2024/14:24 Family Phys: Charge Code: [id number] Physician: Humphreys Order #: [id number] Dose#: PROCEDURE: BILATERAL SCREENING BREAST TOMOSYNTHESIS MAMMOGRAM WITH CAD COMPARISON: [facility], BILAT SCREENING, 12/09/2018, 9:25. [facility], 3D BILAT SCREEN, 05/21/2023, 14:15. 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 LMP: 01/09/2008, Hysterectomy Age at Menarche: Age at First : Age at Menopause: 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 Normal [facility] ANAon 07-08-2023 ANTI-NUCLEAR ANTIBODY (LOLITA) <1:40 Normal <1:40 [facility] Comment on above: Performed By: #### 4 [id number], [id number] #### [address] C-REACTIVE PROTEIN (INFLAMMA TORY)on 07-08-2023 CRP [Mass/Vol] mg/L Normal <=9.9 [facility] Comment on above: Performed By: #### 4 [id number], [id number], [id number], 32639648, 42918176, 38093743, [id number] #### [address] CBC AND DIFFERENTIALon 07-08 ABSOLUTE BASOPHIL 0.0 x10*3/uL Normal 0.0-0.1 [facility] Comment on above: Performed By: #### 4 [id number], [id number] #### [address] ABSOLUTE EOSINOPHIL 0.1 x10*3/uL Normal 0.1-0.3 [facility] Comment on above: Performed By: #### 4 [id number], [id number] #### [address] ABSOLUTE IMMATURE GRANULOCYTES 0.0 x10*3/uL Normal 0.0-0.1 [facility] Comment on above: Performed By: #### 4 9071632, [id number] #### [address] ABSOLUTE LYMPH 1.5 x10*3/uL Normal 1.2-3.3 [facility] Comment on above: Performed By: #### 4 [id number], [id number] #### [address] ABSOLUTE MONO 0.4 x10*3/uL Normal 0.2-0.6 [facility] Comment on above: Performed By: #### 4 5158092, [id number] #### [address] ABSOLUTE NEUTROPHIL 5.1 x10*3/uL Normal 2.4-6.6 [facility] Comment on above: Performed By: #### 4 8615682, [id number] #### [address] Basophils/100 WBC (Bld) 0.3 % Normal [facility] Comment on above: Performed By: #### 4 [id number], [id number] #### [address] Eosinophils/100 WBC (Bld) 1.3 % Normal [facility] Comment on above: Performed By: #### 4 2366562, [id number] #### [address] Erythrocyte distribution width (RBC) [Ratio] 12.3 % Normal 11.5-14.5 [facility] Comment on above: Performed By: #### 4 [id number], [id number] #### [address] Hematocrit (Bld) [Volume fraction] 42.4 % Normal 33.6-46.8 [facility] Comment on above: Performed By: #### 4 [id number], [id number] #### [address] Hemoglobin (Bld) [Mass/Vol] 13.6 g/dL Normal 11.7-15.8 [facility] Comment on above: Performed By: #### 4 [id number], [id number] #### [address] Immature granulocytes/100 WBC (Bld) 0.3 % Normal [facility] Comment on above: Performed By: #### 4 6976486, [id number] #### [address] Lymphocytes/100 WBC (Bld) 21.1 % Normal [facility] Comment on above: Performed By: #### 4 [id number], [id number] #### [address] MCH (RBC) [Entitic mass] 29.3 pg Normal 27.5-32.3 [facility] Comment on above: Performed By: #### 4 [id number], [id number] #### [address] MCHC (RBC) [Mass/Vol] 32.1 g/dL Normal 30.7-35.5 [facility] Comment on above: Performed By: #### 4 [id number], [id number] #### [address] MCV (RBC) [Entitic vol] 91.4 fL Normal 80.2-99 [facility] Comment on above: Performed By: #### 4 [id number], 40806951 #### [address] Monocytes/100 WBC (Bld) 5.7 % Normal [facility] Comment on above: Performed By: #### 4 7080540, [id number] #### [address] Neutrophils/100 WBC (Bld) 71.3 % Normal [facility] Comment on above: Performed By: #### 4 0803439, [id number] #### [address] NUCLEATED RED BLOOD CELLS AUTO 0.0 % Normal 0.0-1.0 [facility] Comment on above: Performed By: #### 4 0082856, [id number] #### [address] PLATELET COUNT 224 x10*3/uL Normal 150-400 [facility] Comment on above: Performed By: #### 4 2676421, [id number] #### [address] RED BLOOD CELL COUNT 4.64 x10*6/uL Normal 3.60-5.20 [facility] Comment on above: Performed By: #### 4 [id number], [id number] #### [address] WHITE BLOOD CELLS 7.2 x10*3/uL Normal 4.3-10.3 [facility] Comment on above: Performed By: #### 4 0395715, [id number] #### [address] CCP ANTIBODIES IGG/IGAon CCP IGG/IGA ABS 5 units Normal 0-19 [facility] Comment on above: Order Comment: Perfo rmed at: 01 - [facility] [address] [id number] Collection Systems Administrator: Martin Fam PhD, Phone: [phone] Result Comment: Nega tive <20 Weak positive 20 - 39 Moderate positive 40 - 59 Strong positive >59 Performed By: #### 4 [id number] #### [facility] CKon 07-08-2023 CK [Catalytic activity/Vol] 39 U/L Normal 0-164 [facility] Comment on above: Performed By: #### 4 [id number], 37105740, 98891059, 34867898, 77304337, 55110169, 14968766 #### [address] CREATININE, SERUMon 07-08-20 Creatinine [Mass/Vol] 0.59 mg/dL Normal 0.52-1.04 [facility] Comment on above: Performed By: #### 4 4192473, 64272488, 26055629, 22922064, 07477165, 47986635, 45903634 #### [address] GLOMERULAR FILTRATION RATE ML/MIN/1.73 SQ M.PREDICTED >90.0 Normal >=60.0 [facility] Comment on above: Result Comment: eGFR calculation [...] Kidney Int Suppl.2013;3:1-150 Performed By: #### 4 6706793, 84987636, 66511901, 96008607, 26003672, 79318798, 45735178 #### [address] RHEUMATOID FACTORon 07-08-20 23 RHEUMATOID FACTOR <8.6 Normal <=12.0 [facility] Comment on above: Performed By: #### 4 [id number], 92814875, 47516560, 17714421, 66629487, 58687842, 88569801 #### [address] SEDIMENTATION RATEon 023 SED RATE 5 mm/hr Normal 0-20 [facility] Comment on above: Performed By: #### 4 [id number], [id number] #### [address] TSHon 07-08-2023 TSH 1.310 uIU/mL Normal 0.465-4.68 0 [facility] Comment on above: Performed By: #### 4 1600490, 10925860, 13665946, 72267763, 80891991, 87296240, 37335884 #### [address] VITAMIN B12on 07-08-2023 Cobalamin (Vitamin B12) [Mass/Vol] 612 pg/mL Normal 239-931 [facility] Comment on above: Performed By: #### 4 1673596, 52059689, 25357053, 70583063, 16521837, 90509458, 48055255 #### [address] VITAMIN D 25 HYDROXYon 07-08 VITAMIN D 25 HYDROXY 23.6 ng/mL Normal [facility] Comment on above: Result Comment: Refe rence Range: Deficiency: <20 ng/mL Insufficiency: 21-29 ng/mL Optimal Level: >=30 ng/mL Possible Toxicity: >80 ng/mL 80 ng/mL is the lowest reported level associated with toxicity in patients without primary hyperthyroidism who have normal renal function. Performed By: #### 4 [id number], 83312305, 19410671, 86854037, 69535873, 55485543, [id number] #### [place] [address] Laboratory - Chemistry and C hemistry - challengeon 06-11-2023 Natriuretic peptide B (Bld) [Mass/Vol] 43 pg/mL Normal [facility].; [facility]. Laboratory - Chemistry and C hemistry - challengeon 05-20-2023 Albumin [Mass/Vol] 4.6 g/dL Normal 3.6 - 5.1 g/dL [facility].; [facility]. Albumin/Globulin [Mass ratio] 1.8 {ratio} Normal 1.0 - 2.5 [facility].; [facility]. ALP [Catalytic activity/Vol] 111 U/L Normal 31 - 125 U/L [facility].; [facility]. ALT [Catalytic activity/Vol] 13 U/L Normal 6 - 29 U/L [facility].; [facility]. AST [Catalytic activity/Vol] 14 U/L Normal 10 - 35 U/L [facility].; [facility] [employer] [facility]. Bilirubin [Mass/Vol] 0.5 mg/dL Normal 0.2 - 1 .2 mg/dL [facility].; [employer] [facility], [facility]. Calcium [Mass/Vol] 9.5 mg/dL Normal 8.6 - 10. 2 mg/dL [facility].; [facility]. Chloride [Moles/Vol] 104 mmol/L Normal 98 - 11 0 mmol/L [facility].; [employer] [facility], [facility]. Cholesterol [Mass/Vol] 236 mg/dL Abnormal [facility].; [facility]. Cholesterol in HDL [Mass/Vol] 63 mg/dL Normal [facility].; [facility]. Cholesterol in LDL [Mass/Vol] 131 mg/dL Abnormal [facility].; [facility]. CO2 [Moles/Vol] 26 mmol/L Normal 20 - 32 mmol/L [facility] [employer] [facility].; [employer]. Creatinine [Mass/Vol] 0.53 mg/dL Normal 0.50 - 0.99 mg/dL [employer], [employer]. GFR/1.73 sq M.predicted among non-blacks MDRD (S/P/Bld) [Vol rate/Area] 114 mL/min/{1.73_m2} Normal [employer]. Glucose [Mass/Vol] 93 mg/dL Normal 65 - 99 mg/dL [employer]. Potassium [Moles/Vol] 4.2 mmol/L Normal 3.5 - 5.3 mmol/L [employer]. Protein [Mass/Vol] 7.1 g/dL Normal 6.1 - 8.1 g/dL [employer]. Sodium [Moles/Vol] 138 mmol/L Normal 135 - 146 mmol/L [employer]. Triglyceride [Mass/Vol] 294 mg/dL Abnormal [employer]. Urea nitrogen [Mass/Vol] 16 mg/dL Normal 7 - 25 mg/dL [employer]. No Panel Informationon 05-20 BUN/CREATININE RATIO NOT APPLICABLE Normal 6 - 22 [employer] CHOL/HDLC RATIO 3.7 Normal [employer], [employer]. GLOBULIN 2.5 Normal 1.9 - 3.7 [employer].; [employer], [employer]. NON HDL CHOLESTEROL 173 Abnormal [facility] [employer], [employer]. Laboratoryon 06-19-2019 A. alternata IgE RAST class (S) 0 Normal [employer]. Laboratory - Allergyon 06-19 A. alternata IgE Qn (S) <0.10 Normal [employer].; [facility] A. fumigatus IgE Qn (S) <0.10 Normal [facility], [facility].; [facility], [facility]. A. fumigatus IgE RAST class (S) 0 Normal [facility], [facility].; [facility], [facility]. Norwegian house dust mite IgE Qn (S) <0.10 Normal [facility], Inc.; [facility], [facility] Norwegian house dust mite IgE RAST class (S) 0 Normal [facility], [facility].; [facility], [facility]. Bermuda grass IgE Qn (S) <0.10 Normal [facility], [facility].; [facility], [facility]. Bermuda grass IgE RAST class (S) 0 Normal [facility], [facility].; [facility], [facility]. Boxelder IgE Qn (S) <0.10 Normal [facility], [facility].; [facility], [facility]. Boxelder IgE RAST class (S) 0 Normal [facility], [facility].; [facility], [facility]. C. herbarum IgE Qn (S) <0.10 Normal [facility], [facility].; [facility], [facility]. C. herbarum IgE RAST class (S) 0 Normal [facility], [facility].; [facility], [facility]. [place] Newcomb Pollen IgE Qn (S) <0.10 Normal [facility], [facility].; [facility], [facility]. [place] Newcomb Pollen IgE RAST class (S) 0 Normal [facility], [facility].; [facility], [facility]. Cat dander IgE Qn (S) <0.10 Normal [facility].; [facility], [facility]. Cat dander IgE RAST class (S) 0 Normal [facility], [facility].; [facility], [facility]. Cockroach IgE Qn (S) <0.10 Normal [facility], [facility].; [facility], [facility]. Cockroach IgE RAST class (S) 0 Normal [facility], [facility].; [facility], [facility]. Common Pigweed IgE Qn (S) <0.10 Normal [facility], [facility].; [facility], [facility]. Common Pigweed IgE RAST class (S) 0 Normal [facility], Inc.; [facility], [facility] Common Ragweed IgE Qn (S) <0.10 Normal [facility], [facility].; [facility], [facility] Common Ragweed IgE RAST class (S) 0 Normal [facility], Inc.; [facility], [facility]. Beasley IgE Qn (S) <0.10 Normal [facility], [facility].; [facility], [facility] Beasley IgE RAST class (S) 0 Normal [facility], [facility].; [facility], [facility] Dog dander IgE Qn (S) <0.10 Normal [facility], Inc.; [facility], [facility] Dog dander IgE RAST class (S) 0 Normal [facility], [facility].; [facility], [facility] house dust mite IgE Qn (S) <0.10 Normal [facility], Inc.; [facility], [facility] house dust mite IgE RAST class (S) 0 Normal [facility], [facility].; [facility], [facility]. Cuenca Plane IgE Qn (S) <0.10 Normal [facility], Inc.; [facility], [facility] [place]a Plane IgE RAST class (S) 0 Normal [facility], [facility].; [facility], [facility] Mountain Juniper IgE Qn (S) <0.10 Normal [facility], Inc.; [facility], [facility] Mountain Juniper IgE RAST class (S) 0 Normal [facility], [facility].; [facility], [facility] Mouse urine proteins IgE Qn (S) <0.10 Normal [facility], Inc.; [facility], [facility] Mouse urine proteins IgE RAST class (S) 0 Normal [facility], [facility].; [facility], [facility] P. notatum IgE Qn (S) <0.10 Normal [facility], [facility].; [facility], [facility] P. notatum IgE RAST class (S) 0 Normal [facility], Inc.; [facility], [facility] Pecan or Sage Tree IgE Qn (S) <0.10 Normal [facility], [facility].; [facility], [facility] Pecan or Sage Tree IgE RAST class (S) 0 Normal [facility], [facility].; [facility], [facility] Saltwort IgE Qn (S) <0.10 Normal [facility], [facility].; [facility], [facility]. Saltwort IgE RAST class (S) 0 Normal [facility], [facility].; [facility], [facility] Sheep Red Devil IgE Qn (S) <0.10 Normal [facility], [facility].; [facility], [facility] Sheep Red Devil IgE RAST class (S) 0 Normal [facility], [facility].; [facility], [facility] Silver Birch IgE Qn (S) <0.10 Normal [facility], [facility].; [facility], [facility]. Silver Birch IgE RAST class (S) 0 Normal [facility], [facility].; [facility], [facility] En IgE Qn (S) <0.10 Normal [facility], [facility].; [facility], [facility]. En IgE RAST class (S) 0 Normal [facility], [facility].; [facility], [facility] White Andrew IgE Qn (S) <0.10 Normal [facility], [facility].; [facility], [facility] White Andrew IgE RAST class (S) 0 Normal [facility], [facility].; [facility], [facility] White Elm IgE Qn (S) <0.10 Normal [facility], [facility].; [facility], [facility] White Elm IgE RAST class (S) 0 Normal [facility], [facility].; [facility], [facility] White mulberry IgE Qn (S) <0.10 Normal [facility], [facility].; [facility], [facility] White mulberry IgE RAST class (S) 0 Normal [facility], [facility].; [facility], Inc[employer] Vesta IgE Qn (S) <0.10 Normal [facility], [facility].; [facility], Inc[facility] Vesta IgE RAST class (S) 0 Normal [facility], [facility].; [facility] [facility], [facility] Laboratory - Chemistry and C hemistry - challengeon 06-19-2019 IgE Qn 17 {KU/L} Normal [facility], [facility].; [facility] Laboratory - Chemistry and C hemistry - challengeon 11-29-2018 Albumin [Mass/Vol] 4.2 g/dL Normal 3.6 - 5.1 g/dL [facility].; [place] [facility]. Albumin/Globulin [Mass ratio] 1.9 {ratio} Normal 1.0 - 2.5 [facility].; [place] [employer]. ALP [Catalytic activity/Vol] 101 U/L Normal 33 - 115 U/L [facility].; [employer]. ALT [Catalytic activity/Vol] 18 U/L Normal 6 - 29 U/L [facility].; [employer]. AST [Catalytic activity/Vol] 15 U/L Normal 10 - 30 U/L [facility].; [employer]. Bilirubin [Mass/Vol] 0.3 mg/dL Normal 0.2 - 1 .2 mg/dL [place] [facility].; [employer]. Calcium [Mass/Vol] 9.0 mg/dL Normal 8.6 - 10. 2 mg/dL [facility].; [employer]. Carcinoembryonic Ag [Mass/Vol] 0.9 ng/mL Normal 0.0 - 2.4 ng/mL [facility].; [employer]. Chloride [Moles/Vol] 105 mmol/L Normal 98 - 11 0 mmol/L [facility].; [place] [employer]. CO2 [Moles/Vol] 30 mmol/L Normal 20 - 32 mmol/L [place] [facility].; [employer]. Creatinine [Mass/Vol] 1.02 mg/dL Normal 0.50 - 1.10 mg/dL [place] [facility].; [employer]. GFR/1.73 sq M.predicted among blacks MDRD (S/P/Bld) [Vol rate/Area] 77 {ML/MIN/1.73M2} Normal [facility].; [place] [employer] GFR/1.73 sq M.predicted MDRD (S/P/Bld) [Vol rate/Area] 67 {ML/MIN/1.73M2} Normal [facility].; [employer], [employer]. Globulin (S) [Mass/Vol] 2.2 g/dL Normal 1.9 - 3.7 g/dL [facility].; [place] [employer] Glucose [Mass/Vol] 97 mg/dL Normal 65 - 99 mg/dL [facility], [facility].; [employer], [facility]. Potassium [Moles/Vol] 4.3 mmol/L Normal 3.5 - 5.3 mmol/L [facility].; [employer], [employer]. Protein [Mass/Vol] 6.4 g/dL Normal 6.1 - 8.1 g/dL [facility].; [employer], [employer]. Sodium [Moles/Vol] 143 mmol/L Normal 135 - 146 mmol/L [facility], [facility].; [employer], [employer]. Urea nitrogen [Mass/Vol] 14 mg/dL Normal 7 - 25 mg/dL [place] [employer] [facility].; [employer], [employer]. Urea nitrogen/Creatinine [Mass ratio] 13.6 mg/mg Normal 6 - 22 [facility] [employer]. Laboratory - Hematology and Cell countson 11-29-2018 Basophils (Bld) [#/Vol] 10 {Cells}/uL Normal 0 - 200 {Cells}/uL [facility] [employer] [facility].; [employer], [employer]. Basophils/100 WBC (Bld) 0 % Normal 0 - 1 % [facility] [employer].; [place] [employer], [employer]. Eosinophils (Bld) [#/Vol] 110 {Cells}/uL Normal 15 - 500 {Cells}/uL [employer], [employer]. Eosinophils/100 WBC (Bld) 2 % Normal 0 - 4 % [employer].; [employer], [employer]. Erythrocyte distribution width (RBC) [Ratio] 13.4 % Normal 11.0 - 15.0 % [facility] [employer], [employer].; [employer] ESR (Bld) [Velocity] 9 mm/h Normal 0 - 20 mm/h [facility].; [employer], [facility]. Hematocrit (Bld) [Volume fraction] 40.1 % Normal 35.0 - 45.0 % [facility].; [facility], [facility] Hemoglobin (Bld) [Mass/Vol] 13.2 g/dL Normal 11.7 - 15.5 g/dL [facility].; [facility], [facility]. Lymphocytes (Bld) [#/Vol] 1380 {Cells}/uL Normal 850 - 3900 {Cells}/uL [facility].; [facility], [facility]. Lymphocytes/100 WBC (Bld) 24 % Normal 12 - 47 % [facility].; [facility], [facility]. MCH (RBC) [Entitic mass] 29.6 pg Normal 27.0 - 33.0 PG [facility].; [facility], [facility]. MCHC (RBC) [Mass/Vol] 33.0 g/dL Normal 32.0 - 36.0 g/dL [facility].; [place] [facility], [facility]. MCV (RBC) [Entitic vol] 89.7 fL Normal 80.0 - 100.0 fL [facility].; [place] [facility], [facility]. Monocytes (Bld) [#/Vol] 390 {Cells}/uL Normal 200 - 950 {Cells}/uL [facility].; [facility], [facility]. Monocytes/100 WBC (Bld) 7 % Normal 4 - 12 % [facility].; [facility], [facility]. Neutrophils (Bld) [#/Vol] 3990 {Cells}/uL Normal 1500 - 7800 {Cells}/uL [facility].; [employer], [facility]. Neutrophils/100 WBC (Bld) 67 % Normal 40 - 75 % [facility].; [employer], [facility]. Platelet mean volume (Bld) [Entitic vol] 9.8 fL Normal 7.5 - 12.5 fL [facility].; [employer], [facility]. Platelets (Bld) [#/Vol] 261 10*3/uL Normal 140 - 400 10*3/uL [facility] [employer] [facility].; [employer], [facility]. RBC (Bld) [#/Vol] 4.47 10*6/uL Normal 3.80 - 5.10 10*6/uL [place] [employer] [facility].; [employer] [facility] WBC (Bld) [#/Vol] 5.9 10*3/uL Normal 3.8 - 10.8 10*3/uL [facility] [employer] [facility].; [employer] Laboratory - Hematology and Cell countson 05-27-2018 Basophils (Bld) [#/Vol] 0.00 {3/UL} Normal 0.00 - 0.10 {3/UL} [facility].; [place] [employer] [facility] Basophils/100 WBC (Bld) 0.3 % Normal 0.0 - 2.0 % [place] [employer]. CBC W Auto Differential panel (Bld) CBC Normal [facility].; [employer], [facility] Eosinophils (Bld) [#/Vol] 0.10 {3/UL} Normal 0.00 - 0.50 {3/UL} [place] [employer] [facility].; [employer]. Eosinophils/100 WBC (Bld) 1.4 % Normal 0.0 - 7.0 % [place] [employer].; [employer], [employer] Erythrocyte distribution width (RBC) [Ratio] 12.6 % Normal 12.0 - 15.6 % [employer].; [employer], [employer]. ESR (Bld) [Velocity] 8 mm/h Normal 0 - 30 mm/h [facility] [employer] [facility].; [employer], [employer]. Hematocrit (Bld) [Volume fraction] 40.9 % Normal 34.0 - 46.0 % [place] [employer] [facility].; [employer], [facility]. Hemoglobin (Bld) [Mass/Vol] 13.7 g/dL Normal 12.0 - 16.0 g/dL [place] [employer] [facility].; [employer], [facility]. Lymphocytes (Bld) [#/Vol] 2.30 {3/UL} Normal 0.80 - 2.80 {3/UL} [employer], [employer].; [employer], [employer] Lymphocytes/100 WBC (Bld) 23.7 % Normal 20.0 - 45.0 % [employer].; [employer] MCH (RBC) [Entitic mass] 31 pg Normal 27 - 33 pg [employer], [employer]. MCHC (RBC) [Mass/Vol] 34 {X10_3} Normal 32 - 3 6 {X10_3} [employer], [employer].; [employer], [employer]. MCV (RBC) [Entitic vol] 91 fL Normal 80 - 99 fL [employer]. Monocytes (Bld) [#/Vol] 0.60 {3/UL} Normal 0.20 - 1.00 {3/UL} [employer].; [employer], [employer]. Monocytes/100 WBC (Bld) 6.5 % Normal 0.0 - 10.0 % [employer]. Morphology Gordon (Bld) [Interp] N/A Normal [facility] [employer].; [employer]. Neutrophils (Bld) [#/Vol] 6.50 {3/UL} Normal 1.50 - 7.10 {3/UL} [employer].; [employer], [employer]. Neutrophils/100 WBC (Bld) 68.1 % Normal 46.0 - 76.0 % [employer].; [employer], [employer]. Platelet mean volume (Bld) [Entitic vol] 9.9 fL Normal 6.6 - 10.5 fL [employer], [employer]. Platelets (Bld) [#/Vol] 232 {3/UL} Normal 150 - 450 {3/UL} [employer].; [employer], [employer]. RBC (Bld) [#/Vol] 4.50 {6/UL} Normal 4.10 - 5.30 {6/UL} [employer].; [employer], [employer]. WBC (Bld) [#/Vol] 9.6 {3/UL} Normal 4.5 - 10.8 {3/UL} [employer].; [employer]. Laboratory - Serology - non- microon 07-20-2018 Nuclear Ab IA Ql (S) LOLITA WITH REFLEX TO TITER AND PATTERN[QU] Normal [facility].; [employer], [employer]. No Panel Informationon 05-27 MANUAL DIFF N/A Normal [facility].; [employer], [employer]. Laboratory - Chemistry and C hemistry - challengeon 02-10-2017 Anion gap [Moles/Vol] 10 mmol/L Normal 10 - 2 0 mmol/L [place] [facility].; [employer], [employer]. Basic metabolic 2000 panel BMP with eGFR Normal [employer], [employer]. Calcium [Mass/Vol] 9.4 mg/dL Normal 8.6 - 10. 2 mg/dL [employer].; [employer], [employer]. Chloride [Moles/Vol] 102 mmol/L Normal 98 - 10 7 mmol/L [employer].; [employer], [employer]. CO2 [Moles/Vol] 31.0 mmol/L Normal 21.0 - 31.0 mmol/L [facility] [employer], [employer].; [employer], [employer]. Creatinine [Mass/Vol] 0.6 mg/dL Normal 0.6 - 1.2 mg/dL [employer] GFR/1.73 sq M.predicted among blacks MDRD (S/P/Bld) [Vol rate/Area] mL/min/{1.73_m2} Normal 60 - 999 {ML/MINUTE } [facility], [facility].; [employer] GFR/1.73 sq M.predicted MDRD (S/P/Bld) [Vol rate/Area] mL/min/{1.73_m2} Normal 60 - 999 {ML/MINUTE } [employer], [employer].; [employer] Glucose [Mass/Vol] 70 mg/dL Abnormal 74 - 106 mg/dL [employer], [employer].; [employer] Potassium [Moles/Vol] 3.8 mmol/L Normal 3.5 - 5.1 mmol/L [facility] [employer], [employer].; [employer] Sodium [Moles/Vol] 139 mmol/L Normal 136 - 145 mmol/L [employer]. Urea nitrogen [Mass/Vol] 11 mg/dL Normal 6 - 20 mg/dL [employer].; [employer]. No Panel Informationon 02-10 AGE 41 {years} Normal [employer].; [employer], [employer]. Laboratory - Chemistry and C hemistry - challengeon 01-04-2017 Albumin [Mass/Vol] 4.5 g/dL Normal 3.4 - 4.8 g/dL [employer].; [employer] Albumin [Mass/Vol] 1.9 g/dL Abnormal 0.9 - 1.6 [employer].; [employer], [employer]. ALP [Catalytic activity/Vol] 75 U/L Normal 38 - 126 U/L [employer].; [employer], [employer]. ALT [Catalytic activity/Vol] 10 U/L Normal 8 - 35 U/L [employer].; [employer], [employer]. ALT No additional P-5'-P [Catalytic activity/Vol] 10 U/L Normal 8 - 35 U/L [employer]. Anion gap [Moles/Vol] 10 mmol/L Normal 10 - 2 0 mmol/L [employer].; [employer], [employer]. AST [Catalytic activity/Vol] 13 U/L Normal 13 - 39 U/L [facility] [employer], [employer].; [employer], [employer]. Bilirubin [Mass/Vol] 0.8 mg/dL Normal 0.0 - 1 .5 mg/dL [employer].; [employer], [employer]. Calcium [Mass/Vol] 9.4 mg/dL Normal 8.6 - 10. 2 mg/dL [facility] [employer], [employer].; [employer], [employer]. Chloride [Moles/Vol] 106 mmol/L Normal 98 - 10 7 mmol/L [employer], [employer]. Cholesterol [Mass/Vol] 187 mg/dL Normal 0 - 200 mg/dL [facility] [employer], [employer].; [employer], [employer]. Cholesterol in HDL [Mass or moles/Vol] 69 mg/dL Abnormal 40 - 60 mg/dL [facility].; [facility], [facility]. Cholesterol in LDL [Mass/Vol] 100 mg/dL Normal 0 - 129 mg/dL [facility].; [facility], [facility] Cholesterol.total/Cho lesterol in HDL [Mass ratio] 2.7 {ratio} Normal 0.0 - 5.0 [facility]; [facility], [facility] CO2 [Moles/Vol] 28.0 mmol/L Normal 21.0 - 31.0 mmol/L [facility].; [facility] Comprehensive metabolic 2000 panel CMP with eGFR Normal [facility]; [facility], [facility] Creatinine [Mass/Vol] 0.6 mg/dL Normal 0.6 - 1.2 mg/dL [facility]; [facility], [facility]. GFR/1.73 sq M.predicted among blacks MDRD (S/P/Bld) [Vol rate/Area] 133 {ML/MINUTE} Normal 60 - 999 {ML/MINUTE } [facility].; [facility], [facility]. GFR/1.73 sq M.predicted MDRD (S/P/Bld) [Vol rate/Area] 110 {ML/MINUTE} Normal 60 - 999 {ML/MINUTE } [facility].; [facility]. Globulin (S) [Mass/Vol] 2.4 g/dL Normal 1.5 - 3.8 g/dL [facility].; [facility]. Glucose [Mass/Vol] 83 mg/dL Normal 74 - 106 mg/dL [facility].; [facility]. Lipid 1996 panel LIPID PROFILE Normal [facility].; [facility] Potassium [Moles/Vol] 6.3 mmol/L Abnormal 3.5 - 5.1 mmol/L [facility].; [facility] Protein [Mass/Vol] 6.9 g/dL Normal 6.4 - 8.3 g/dL [facility].; [facility]. Sodium [Moles/Vol] 138 mmol/L Normal 136 - 145 mmol/L [facility].; [facility] Triglyceride [Mass/Vol] 88 mg/dL Normal 0 - 150 mg/dL [employer]. TSH Qn 0.91 m[IU]/L Normal 0.34 - 5.60 {uIU/ml} [employer].; [employer], [employer]. Urea nitrogen [Mass/Vol] 8 mg/dL Normal 6 - 20 mg/dL [employer].; [employer]. Urea nitrogen/Creatinine [Mass ratio] 13 {ratio} Normal 0 - 30 {ratio} [employer].; [employer]. No Panel Informationon 01-04 AGE 41 {years} Normal [employer].; [employer]. Laboratory - Chemistry and C hemistry - challengeon 05-24-2014 Basic metabolic 2000 panel BMP with eGFR Normal [employer].; [employer] Calcium [Mass/Vol] 9.3 mg/dL Normal 8.6 - 10. 2 mg/dL [employer].; [employer], [employer]. Chloride [Moles/Vol] 105 mmol/L Normal 98 - 10 7 mmol/L [facility] [employer]. Cholesterol [Mass/Vol] 155 mg/dL Normal 0 - 200 mg/dL [employer], [employer]. Cholesterol in HDL [Mass or moles/Vol] 48 mg/dL Normal 40 - 60 mg/dL [employer]. Cholesterol in LDL [Mass/Vol] 87 mg/dL Normal 0 - 129 mg/dL [employer]. Cholesterol.total/Cho lesterol in HDL [Mass ratio] 3.2 {ratio} Normal 0.0 - 5.0 [place] [employer].; [employer]. CO2 [Moles/Vol] 24.0 mmol/L Normal 13.0 - 29.0 mmol/L [employer], [employer].; [employer], [employer]. Creatinine [Mass/Vol] 0.6 mg/dL Normal 0.6 - 1.2 mg/dL [employer].; [facility]. GFR/1.73 sq M.predicted among blacks MDRD (S/P/Bld) [Vol rate/Area] mL/min/{1.73_m2} Normal 60 - 999 {ML/MINUTE } [facility].; [place] [employer] [facility], [facility]. GFR/1.73 sq M.predicted MDRD (S/P/Bld) [Vol rate/Area] mL/min/{1.73_m2} Normal 60 - 999 {ML/MINUTE } [facility].; [place] [employer] [facility]. Glucose [Mass/Vol] 85 mg/dL Normal 74 - 106 mg/dL [facility].; [place] [employer] [facility] Lipid 1996 panel LIPID PROFILE Normal [facility]; [place] [employer] [facility] Potassium [Moles/Vol] 3.7 mmol/L Normal 3.5 - 5.1 mmol/L [facility].; [place] [employer] [facility] Sodium [Moles/Vol] 136 mmol/L Normal 136 - 145 mmol/L [facility].; [employer]. Triglyceride [Mass/Vol] 100 mg/dL Normal 0 - 150 mg/dL [facility].; [employer]. Urea nitrogen [Mass/Vol] 8 mg/dL Normal 6 - 20 mg/dL [facility].; [employer]. No Panel Informationon [birth year] AGE 38 {years} Normal [facility]; [place] [employer] [facility]. Laboratory - Chemistry and C hemistry - challengeon 02-26-2012 Bilirubin Ql (U) Negative Normal [facility].; [employer]. Ketones Ql (U) Negative Normal [facility].; [employer], [employer]. pH (U) 6.0 [pH] Normal 4.6 - 8.0 [facility].; [employer], [employer]. Specific gravity (U) [Rel density] 1.005 Normal 1.001 - 1.025 [facility].; [employer]. Laboratory - Hematology and Cell countson 02-26-2012 Hemoglobin Ql (U) Negative Normal [employer]. Laboratory - Specimen inform ationon 02-26-2012 Appearance (U) clear Normal [employer]. Color (U) yellow Normal [employer].; [employer]. Laboratory - Urinalysison Glucose Test strip (U) [Mass/Vol] Negative Normal [employer]. Leukocyte esterase Test strip Ql (U) Negative Normal [employer].; [employer]. Nitrite Ql (U) Negative Normal [employer].; [employer]. Protein Ql (U) Negative Normal [employer].; [employer]. No Panel Informationon 02-25 UA - UROBILINOGEN 0.2 mg/dL Normal [employer].; [employer]. Vital Signs Date Time Vital Sign Value Performing Clinician Facility 05-30-2025 11:08-0400 Body height 160.02 cm Leonora Saldivar PA Work Phone: 6(041)650-095584 [place] [address] 05-30-2025 11:08-0400 Body mass index (BMI) [Ratio] 32.1 kg/m2 Leonora Saldivar PA Work Phone: 0(752)345-046184 [place] [address] 05-30-2025 11:08-0400 Body weight 82.1 kg Leonora Saldivar PA Work Phone: 4(781)093-136684 [place] [address] 05-30-2025 11:08-0400 Diastolic blood pressure 74 mm[Hg] Leonora Saldivar PA Work Phone: [facility] 05-30-2025 11:08-0400 Heart rate 71 /min Leonora Saldivar PA Work Phone: 3(774)419-315084 [place] [address] 05-30-2025 11:08-0400 Respiratory rate 16 /min Leonora Saldivar PA Work Phone: [facility] 05-30-2025 11:08-0400 Systolic blood pressure 165 mm[Hg] Leonora Saldivar PA Work Phone: 6(188)927-614250 [place] [address] 04-23-2025 08:55-0400 Body temperature 98 [degF] Leonora Saldivar PA Work Phone: 6(684)322-532371 [place] [address] 04-23-2025 08:55-0400 Diastolic blood pressure 58 mm[Hg] Leonora Saldivar PA Work Phone: 2(380)285-229571 [place] [address] 04-23-2025 08:55-0400 Heart rate 72 /min Leonora Saldivar PA Work Phone: 7(852)792-502071 [place] [address] 04-23-2025 08:55-0400 Respiratory rate 16 /min Leonora Saldivar PA Work Phone: 3(860)013-680671 [place] [address] 04-23-2025 08:55-0400 SaO2% (BldA) [Mass fraction] 96 % Leonora Saldivar PA Work Phone: 7(845)031-306971 [place] [address] 04-23-2025 08:55-0400 Systolic blood pressure 95 mm[Hg] Leonora Saldivar PA Work Phone: 7(790)667-346771 [place] [address] 04-23-2025 06:59-0400 Body height 160.02 cm Leonora Saldivar PA Work Phone: 9(032)485-884071 [place] [address] 04-23-2025 06:59-0400 Body mass index (BMI) [Ratio] 32 kg/m2 Leonora Saldivar PA Work Phone: 5(732)433-193171 [place] [address] 04-23-2025 06:59-0400 Body weight 82 kg Leonora Saldivar PA Work Phone: 9(133)118-677371 [place] [address] 04-16-2025 08:57-0400 Body height 160.02 cm Leonora Saldivar PA Work Phone: 2(022)495-648771 [place] [address] 04-16-2025 08:57-0400 Body mass index (BMI) [Ratio] 32.2 kg/m2 Leonora Saldivar PA Work Phone: 4(409)626-395471 [place] [address] 04-16-2025 08:57-0400 Body temperature 97.4 [degF] Leonora Saldivar PA Work Phone: 0(951)702-903971 [place] [address] 04-16-2025 08:57-0400 Body weight 82.55 kg Leonora Saldivar PA Work Phone: 1(737)608-775784 [place] [address] 04-16-2025 08:57-0400 Diastolic blood pressure 57 mm[Hg] Leonora Saldivar PA Work Phone: 8(445)187-129871 [place] [address] 04-16-2025 08:57-0400 Heart rate 67 /min Leonora Saldivar PA Work Phone: 1(607)381-609571 [place] [address] 04-16-2025 08:57-0400 Respiratory rate 18 /min Leonora Saldivar PA Work Phone: 8(154)436-862571 [place] [address] 04-16-2025 08:57-0400 SaO2% (BldA) [Mass fraction] 99 % Leonora Saldivar PA Work Phone: 6(589)192-664171 [place] [address] 04-16-2025 08:57-0400 Systolic blood pressure 100 mm[Hg] Leonora Saldivar PA Work Phone: 1(252)248-057971 [place] [address] 03-27-2025 12:28-0400 Body height 160.02 cm Leonora Saldivar PA Work Phone: 1(891)510-305171 [place] [address] 03-27-2025 12:28-0400 Body weight 83.91 kg Leonora Saldivar PA Work Phone: 8(849)979-259271 [place] [address] 03-27-2025 12:28-0400 Heart rate 69 /min Leonora Saldivar PA Work Phone: 0(358)702-658471 [place] [address] 03-27-2025 12:28-0400 Inhaled oxygen concentration 21 % Leonora Saldivar PA Work Phone: 1(204)079-228871 [place] [address] 03-27-2025 12:28-0400 Inhaled oxygen flow rate 21 L/min Lenoora Saldivar PA Work Phone: 3(606)848-863671 [place] [address] 03-27-2025 12:28-0400 SaO2% (BldA) [Mass fraction] 98 % Leonora Saldivar PA Work Phone: 8(598)908-149871 [place] [address] 03-05-2025 08:44-0400 Body mass index (BMI) [Ratio] 32.9 kg/m2 Leonora Saldivar PA Work Phone: 1(297)669-920571 [place] [address] 03-05-2025 08:44-0400 Body temperature 97.4 [degF] Leonora Saldivar PA Work Phone: [facility] 03-05-2025 08:44-0400 Body weight 84.36 kg Leonora Saldivar PA Work Phone: [facility] 03-05-2025 08:44-0400 Diastolic blood pressure 93 mm[Hg] Leonora Saldivar PA Work Phone: [facility] 03-05-2025 08:44-0400 Heart rate 62 /min Leonora Saldivar PA Work Phone: [facility] 03-05-2025 08:44-0400 Respiratory rate 18 /min Leonora Saldivar PA Work Phone: [facility] 03-05-2025 08:44-0400 SaO2% (BldA) [Mass fraction] 99 % Leonora Saldivar PA Work Phone: [facility] 03-05-2025 08:44-0400 Systolic blood pressure 154 mm[Hg] Leonora Saldivar PA Work Phone: [facility] 02-02-2025 14:04-0400 Body height 160.02 cm Leonora J Saldivar PA-C Work Phone: [employer] 02-02-2025 14:04-0400 Body mass index (BMI) [Ratio] 32.28 kg/m2 Leonora J Saldivar PA-C Work Phone: [employer]; [employer] [facility] 02-02-2025 14:04-0400 Body surface area Derived from formula 1.86 m2 Leonora J Saldivar PA-C Work Phone: [employer]; [employer] 02-02-2025 14:04-0400 Body temperature 97.9 [degF] Leonora J Saldivar PA-C Work Phone: [employer]; [employer]. Comment on above: Method: Tympanic 02-02-2025 14:04-0400 Body weight 82.67 kg Leonora Linh Saldivar PA-C Work Phone: [email or web address]; [place] [employer]. 02-02-2025 14:04-0400 Diastolic blood pressure 86 mm[Hg] Leonora J Saldivar PA-C Work Phone: [facility] [place] [employer]. Comment on above: Patient Position: Sitting; Cuff Location : Left Arm; Cuff Size: Standard 02-02-2025 14:04-0400 Heart rate 112 /min Leonora J Saldivar PA-C Work Phone: [facility] [place] [employer]. Comment on above: Pattern: Regular 02-02-2025 14:04-0400 Inhaled oxygen concentration 21 % Leonora J Saldivar PA-C Work Phone: [facility] [place] [employer] [employer]. Comment on above: Room air 02-02-2025 14:04-0400 SaO2% (BldA) [Mass fraction] 96 % Leonora J Saldivar PA-C Work Phone: [email or web address] [email or web address]; [employer]. 02-02-2025 14:04-0400 Systolic blood pressure 128 mm[Hg] Leonora J Saldivar PA-C Work Phone: [facility] [place] [employer] [employer]. Comment on above: Patient Position: Sitting; Cuff Location : Left Arm; Cuff Size: Standard 01-08-2025 10:030500 Body height 160.02 cm Radha Lyons RN [facility].; [place] [employer] [facility]. 01-08-2025 10:03-0500 Body mass index (BMI) [Ratio] 32.24 kg/m2 Radha Lyons RN [facility] Center[facility].; [employer]. 01-08-2025 10:03-0500 Body surface area Derived from formula 1.86 m2 Radha Lyons RN [facility].; [employer] [facility]. 01-08-2025 10:030500 Body weight 82.56 kg Radha Lyons RN [facility].; [place] [employer] [facility]. 01-08-2025 10:03-0500 Diastolic blood pressure 65 mm[Hg] Radha Lyons RN [facility].; [employer]. Comment on above: Patient Position: Sitting; Cuff Location : Left Arm; Cuff Size: Standard 01-08-2025 10:03-0500 Heart rate 69 /min Radha Lyons RN [facility].; [employer] [facility]. Comment on above: Pattern: Regular 01-08-2025 10:030500 Inhaled oxygen concentration 21 % Radha Lyons RN [facility] Center[facility].; [employer]. Comment on above: Room air 01-08-2025 10:030500 SaO2% (BldA) [Mass fraction] 99 % Radha Lyons RN [facility].; [employer] [facility]. 01-08-2025 10:03-0500 Systolic blood pressure 96 mm[Hg] Radha Lyons RN [place] [employer] [facility].; [employer]. Comment on above: Patient Position: Sitting; Cuff Location : Left Arm; Cuff Size: Standard 07-24-2024 12:52-0400 Body mass index (BMI) [Ratio] 29.76 kg/m2 Laurita Shaheen HIV/AIDS CARE NURSE.TRANSFORMATION SPECIALIST Work Phone: [facility] 07-24-2024 12:52-0400 Body weight 76.2 kg Laurita Shaheen HIV/AIDS CARE NURSE.TRANSFORMATION SPECIALIST Work Phone: [facility] 07-24-2024 12:52-0400 Diastolic blood pressure 70 mm[Hg] Laurita Alamo HIV/AIDS CARE NURSE.TRANSFORMATION SPECIALIST Work Phone: [facility] 07-24-2024 12:52-0400 Systolic blood pressure 120 mm[Hg] Laurita Shaheen HIV/AIDS CARE NURSE.TRANSFORMATION SPECIALIST Work Phone: [facility] 07-13-2024 09:59-0400 Body height 160.02 cm Bridget Smith MA [facility], [facility].; [facility]. 07-13-2024 09:59-0400 Body mass index (BMI) [Ratio] 29.41 kg/m2 Bridget Smith MA [facility], [facility].; [facility]. 07-13-2024 09:59-0400 Body surface area Derived from formula 1.79 m2 Bridget Smith MA [facility].; [facility]. 07-13-2024 09:59-0400 Body weight 75.3 kg Bridget Smith MA [facility].; [facility]. 07-13-2024 09:59-0400 Diastolic blood pressure 73 mm[Hg] Bridget Smith MA [facility].; [facility] Center[facility]. Comment on above: Patient Position: Sitting; Cuff Location : Left Arm; Cuff Size: Standard 07-13-2024 09:59-0400 Heart rate 71 /min Bridget Smith MA [facility].; [place] [employer] [facility]. Comment on above: Pattern: Regular 07-13-2024 09:59-0400 Systolic blood pressure 115 mm[Hg] Bridget Smith MA [facility].; [facility]. Comment on above: Patient Position: Sitting; Cuff Location : Left Arm; Cuff Size: Standard 05-29-2024 14:11-0400 Body mass index (BMI) [Ratio] 29.05 kg/m2 Laurita Alamo HIV/AIDS CARE NURSE.TRANSFORMATION SPECIALIST Work Phone: [facility] 05-29-2024 14:11-0400 Body weight 74.39 kg Laurita Alamo HIV/AIDS CARE NURSE.TRANSFORMATION SPECIALIST Work Phone: [facility] 05-29-2024 14:11-0400 Diastolic blood pressure 70 mm[Hg] Laurita Alamo HIV/AIDS CARE NURSE.TRANSFORMATION SPECIALIST Work Phone: [facility] 05-29-2024 14:11-0400 Systolic blood pressure 122 mm[Hg] Laurita Shaheen HIV/AIDS CARE NURSE.TRANSFORMATION SPECIALIST Work Phone: [facility] 03-27-2024 10:[id number] Body height 160 cm Laurita Alamo HIV/AIDS CARE NURSE.[facility] Work Phone: [facility] 03-27-2024 10:28-0400 Body mass index (BMI) [Ratio] 27.74 kg/m2 Laurita Alamo HIV/AIDS CARE NURSE.[facility] Work Phone: [facility] 03-27-2024 10:[id number] Body weight 71.03 kg Laurita Shaheen HIV/AIDS CARE NURSE.TRANSFORMATION SPECIALIST Work Phone: [facility] 03-27-2024 10:28-0400 Diastolic blood pressure 80 mm[Hg] Laurita Shaheen HIV/AIDS CARE NURSE.[facility] Work Phone: [facility] 03-27-2024 10:28-0400 Systolic blood pressure 138 mm[Hg] Laurita Alamo HIV/AIDS CARE NURSE.[facility] Work Phone: [facility] 01-04-2024 10:49-0500 Body height 160.02 cm Elizabeth Beard MA [facility], [facility].; [facility], [facility]. 01-04-2024 10:49-0500 Body mass index (BMI) [Ratio] 26.96 kg/m2 Elizabeth Beard MA [facility], [facility].; [facility], [facility]. 01-04-2024 10:49-0500 Body surface area Derived from formula 1.72 m2 Elizabeth Beard MA [facility], [facility].; [facility], [facility]. 01-04-2024 10:49-0500 Body weight 69.03 kg Elizabeth Beard MA [facility], [facility].; [facility], [facility]. 01-04-2024 10:49-0500 Diastolic blood pressure 75 mm[Hg] Elizabeth Beard MA [facility], [facility].; [facility], [facility]. Comment on above: Patient Position: Sitting; Cuff Location : Left Arm; Cuff Size: Standard 01-04-2024 10:49-0500 Heart rate 84 /min Elizabeth Beard MA [facility], [facility].; [facility], [facility]. Comment on above: Pattern: Regular 01-04-2024 10:49-0500 Systolic blood pressure 117 mm[Hg] Elizabeth Beard MA [facility]. Comment on above: Patient Position: Sitting; Cuff Location : Left Arm; Cuff Size: Standard 01-03-2024 07:41-0500 Body height 160.02 cm PA Leonora Saldivar Work Phone: [facility] 01-03-2024 07:41-0500 Body mass index (BMI) [Ratio] 26 kg/m2 PA Leonora Saldivar Work Phone: [facility] 01-03-2024 07:41-0500 Body temperature 96.4 [degF] PA Leonora Saldivar Work Phone: 8(642)894-428829 [address] 01-03-2024 07:41-0500 Body weight 66.67 kg PA Leonora Saldivar Work Phone: 6(062)319-871784 [place] [address] 01-03-2024 07:41-0500 Diastolic blood pressure 72 mm[Hg] PA Leonora Saldivar Work Phone: 6(811)641-146984 [place] [address] 01-03-2024 07:41-0500 Heart rate 68 /min PA Leonora Saldivar Work Phone: 0(693)446-920984 [place] [address] 01-03-2024 07:41-0500 Respiratory rate 18 /min PA Leonora Saldivar Work Phone: [facility] 01-03-2024 07:41-0500 SaO2% (BldA) [Mass fraction] 98 % PA Leonora Saldivar Work Phone: [facility] 01-03-2024 07:41-0500 Systolic blood pressure 106 mm[Hg] PA Leonora Saldivar Work Phone: [facility] 11-03-2023 10:52-0500 Body height 160.[address] Carlin Adam Work Phone: [facility] 11-03-2023 10:52-0500 Body mass index (BMI) [Ratio] 26.4 kg/m2 Dr. Carlin Adam Work Phone: [facility] 11-03-2023 10:52-0500 Body temperature 98.4 [degF] Dr. Carlin Adam Work Phone: 9(446)403-256929 [address] 11-03-2023 10:52-0500 Body weight 67.[address] Carlin Adam Work Phone: 4(348)157-351484 [place] [address] 11-03-2023 10:52-0500 Diastolic blood pressure 74 mm[Hg] Dr. Carlin Adam Work Phone: 2(227)941-708629 [address] 11-03-2023 10:52-0500 Heart rate 51 /min Dr. Carlin Adam Work Phone: 1(608)174-540871 [place] [address] 11-03-2023 10:52-0500 Respiratory rate 18 /min Dr. Carlin Adam Work Phone: 8(271)929-175571 [place] [address] 11-03-2023 10:52-0500 SaO2% (BldA) [Mass fraction] 97 % Dr. Carlin Adam Work Phone: 2(699)086-367884 [place] [address] 11-03-2023 10:52-0500 Systolic blood pressure 129 mm[Hg] Dr. Carlin Adam Work Phone: 8(929)464-138271 [place] [address] 10-25-2023 13:53-0500 Body height 160.[address] Carlin Adam Work Phone: 3(686)844-019471 [place] [address] 10-25-2023 13:53-0500 Body weight 65.[address] Carlin Adam Work Phone: 4(805)331-887129 [address] 10-25-2023 13:53-0500 Heart rate 84 /min Dr. Carlin Adam Work Phone: 2(942)996-799429 [address] 10-25-2023 13:53-0500 SaO2% (BldA) [Mass fraction] 99 % Dr. Carlin Adam Work Phone: 7(705)011-926829 [address] 09-15-2023 06:30-0500 Body mass index (BMI) [Ratio] 27.3 kg/m2 Dr. Carlin Adam Work Phone: 1(288)789-625884 [place] [address] 09-15-2023 06:30-0500 Body temperature 96.8 [degF] Dr. Carlin Adam Work Phone: [facility] 09-15-2023 06:30-0500 Body weight 69.[address] Carlin Adam Work Phone: [facility] 09-15-2023 06:30-0500 Diastolic blood pressure 68 mm[Hg] Dr. Carlin Adam Work Phone: [facility] 09-15-2023 06:30-0500 Heart rate 84 /min Dr. Carlin Adam Work Phone: [facility] 09-15-2023 06:30-0500 SaO2% (BldA) [Mass fraction] 96 % Dr. Carlin Adam Work Phone: [facility] 09-15-2023 06:30-0500 Systolic blood pressure 122 mm[Hg] Dr. Carlin Adam Work Phone: [facility] 08-09-2023 10:[id number] Body height 160.02 cm Elizabeth Beard MA [facility] [employer]. 08-09-2023 10:11-0400 Body mass index (BMI) [Ratio] 27.18 kg/m2 Elizabeth Beard MA [employer] [facility].; [employer] 08-09-2023 10:11-040 Body surface area Derived from formula 1.73 m2 Elizabeth Beard MA [facility].; [employer] 08-09-2023 10:11040 Body weight 69.6 kg Elizabeth Beard MA [employer] [facility] Hospital[facility] [employer].; [employer]. 08-09-2023 10:110400 Diastolic blood pressure 74 mm[Hg] Elizabeth Beard MA [employer] [facility].; [employer]. Comment on above: Patient Position: Sitting; Cuff Location : Left Arm; Cuff Size: Standard 08-09-2023 10:11040 Heart rate 98 /min Elizabeth Beard MA [employer] [facility] [employer], [employer]. Comment on above: Pattern: Regular 08-09-2023 10:110400 Systolic blood pressure 109 mm[Hg] Elizabeth Beard MA [facility].; [employer] [facility]. Comment on above: Patient Position: Sitting; Cuff Location : Left Arm; Cuff Size: Standard 06-11-2023 13:18-0400 Body height 160.02 cm Elizabeth Beard MA [facility], [facility].; [employer] 06-11-2023 13:18-0400 Body mass index (BMI) [Ratio] 26.57 kg/m2 Elizabeth Beard MA [facility].; [employer] [facility]. 06-11-2023 13:18-0400 Body surface area Derived from formula 1.71 m2 Elizabeth Beard MA [facility].; [employer] [facility]. 06-11-2023 13:18040 Body weight 68.04 kg Elizabeth Beard MA [facility].; [employer] [facility]. 06-11-2023 13:18-0400 Diastolic blood pressure 89 mm[Hg] Elizabeth Beard MA [facility].; [employer]. Comment on above: Patient Position: Sitting; Cuff Location : Left Arm; Cuff Size: Standard 06-11-2023 13:18-0400 Heart rate 79 /min Elizabeth Beard MA [facility].; [employer]. Comment on above: Pattern: Regular 06-11-2023 13:18-0400 Systolic blood pressure 131 mm[Hg] Elizabeth Beard MA [facility].; [employer]. Comment on above: Patient Position: Sitting; Cuff Location : Left Arm; Cuff Size: Standard 10-15-2021 10:33-0500 Body height 160.02 cm Daniella Virgen LPN [facility].; [place] [employer] [facility]. 10-15-2021 10:33-0500 Body mass index (BMI) [Ratio] 24.98 kg/m2 Daniella Virgen LPN [employer] [facility].; [place] [employer] [facility]. 10-15-2021 10:33-0500 Body surface area Derived from formula 1.67 m2 Daniella Virgen LPN [facility].; [place] [employer] [facility]. 10-15-2021 10:33-0500 Body weight 63.96 kg Daniella Virgen DEEPIKA [facility], [facility].; [place] [employer] [facility], [facility]. 10-15-2021 10:33-0500 Diastolic blood pressure 72 mm[Hg] Daniellaadrian Virgen DEEPIKA [facility], [facility].; [employer] [facility], [facility]. Comment on above: Patient Position: Sitting; Cuff Location : Left Arm; Cuff Size: Standard 10-15-2021 10:33-0500 Heart rate 91 /min Daniella Param POE [facility] [employer], [facility]. Comment on above: Pattern: Regular 10-15-2021 10:33-0500 Systolic blood pressure 112 mm[Hg] Daniellaadrian Virgen DEEPIKA [facility], [facility].; [employer], [facility]. Comment on above: Patient Position: Sitting; Cuff Location : Left Arm; Cuff Size: Standard 08-04-2021 13:09040 Body height 160.02 cm Lady Bowers PUPPET MASTER [facility] [employer] [facility], [facility]. 08-04-2021 13:09-0400 Body mass index (BMI) [Ratio] 25.51 kg/m2 Ladyerica Isidrorosey [facility], [facility].; [employer] [facility], [facility]. 08-04-2021 13:09040 Body surface area Derived from formula 1.68 m2 Ladyaleah Bowers PUPPET MASTER [facility], [facility].; [employer] [facility], [facility]. 08-04-2021 13:090400 Body weight 65.32 kg Lady Robinson PUPPET MASTER [facility], [facility].; [employer] [facility], [facility]. 08-04-2021 13:090400 Diastolic blood pressure 78 mm[Hg] Ladyerica Isidorrosey POE [facility], [facility].; [employer], [employer]. Comment on above: Patient Position: Sitting; Cuff Location : Left Arm; Cuff Size: Standard 08-04-2021 13:09-0400 Heart rate 92 /min Lady Bowers LPN [facility] [employer], [employer]. Comment on above: Pattern: Regular 08-04-2021 13:09-0400 Systolic blood pressure 127 mm[Hg] Lady Robinson POE [employer]. Comment on above: Patient Position: Sitting; Cuff Location : Left Arm; Cuff Size: Standard 01-26-2019 14:15-0400 Body height 160.02 cm Radha Lyons RN [employer]. 01-26-2019 14:15-0400 Body mass index (BMI) [Ratio] 26.93 kg/m2 Radha Lyons RN [employer]. 01-26-2019 14:15-0400 Body surface area Derived from formula 1.72 m2 Radha Lyons RN [employer]. 01-26-2019 14:15-0400 Body temperature 98.4 [degF] Radha Lyons RN [employer]. Comment on above: Method: Tympanic 01-26-2019 14:15-0400 Body weight 68.95 kg Radha Lyons RN [employer]. 01-26-2019 14:15-0400 Diastolic blood pressure 63 mm[Hg] Radha Lyons RN [employer]. Comment on above: Patient Position: Sitting; Cuff Location : Left Arm; Cuff Size: Standard 01-26-2019 14:15-0400 Heart rate 69 /min Radha Lyons RN [employer]. Comment on above: Pattern: Regular 01-26-2019 14:15-0400 Systolic blood pressure 98 mm[Hg] Radha Lyons RN [employer]. Comment on above: Patient Position: Sitting; Cuff Location : Left Arm; Cuff Size: Standard 11-29-2018 11:01-0500 Body height 160.02 cm Leonora Saldivar PA-C Work Phone: [employer]. 11-29-2018 11:01-0500 Body mass index (BMI) [Ratio] 26.57 kg/m2 Leonora DOVEC Work Phone: [employer]. 11-29-2018 11:01-0500 Body surface area Derived from formula 1.71 m2 Leonora Saldivar PA-C Work Phone: [employer]. 11-29-2018 11:01-0500 Body weight 68.04 kg Leonora Saldivar PA-C Work Phone: [employer] 11-29-2018 11:01-0500 Diastolic blood pressure 74 mm[Hg] Leonora Saldivar PA-C Work Phone: [employer]. Comment on above: Patient Position: Sitting; Cuff Location : Left Arm; Cuff Size: Standard 11-29-2018 11:01-0500 Heart rate 79 /min Leonora Saldivar PA-C Work Phone: [employer] Comment on above: Pattern: Regular 11-29-2018 11:01-0500 Systolic blood pressure 113 mm[Hg] Leonora Saldivar PA-C Work Phone: [employer] Comment on above: Patient Position: Sitting; Cuff Location : Left Arm; Cuff Size: Standard 08-26-2018 12:02-0400 Body height 160.02 cm Leonora Saldivar PA-C Work Phone: [employer] 08-26-2018 12:02-0400 Body mass index (BMI) [Ratio] 23.91 kg/m2 Leonora Saldivar PA-C Work Phone: [employer] 08-26-2018 12:02-0400 Body surface area Derived from formula 1.64 m2 Leonora Saldivar PA-C Work Phone: [employer] 08-26-2018 12:02-0400 Body weight 61.24 kg Leonora Saldivar PA-C Work Phone: [employer]. 08-26-2018 12:02-0400 Diastolic blood pressure 68 mm[Hg] Leonora Saldivar PA-C Work Phone: [employer]. Comment on above: Patient Position: Sitting; Cuff Location : Left Arm; Cuff Size: Standard 08-26-2018 12:02-0400 Heart rate 64 /min Leonora Saldivar PA-C Work Phone: [employer]. Comment on above: Pattern: Regular 08-26-2018 12:02-0400 Systolic blood pressure 105 mm[Hg] Leonora Saldivar PA-C Work Phone: [employer]; [employer]. Comment on above: Patient Position: Sitting; Cuff Location : Left Arm; Cuff Size: Standard 06-03-2018 15:130400 Body height 160.02 cm Nava Garcias LPN [employer]. 06-03-2018 15:13-0400 Body mass index (BMI) [Ratio] 23.56 kg/m2 Nava Garcias LPN [employer], [employer].; [employer]. 06-03-2018 15:13-0400 Body surface area Derived from formula 1.63 m2 Nava Garcias LPN [employer]. 06-03-2018 15:13-0400 Body weight 60.33 kg Nava Garcias LPN [employer]. 06-03-2018 15:13-0400 Diastolic blood pressure 66 mm[Hg] Nava Garcias LPN [employer]. Comment on above: Patient Position: Sitting; Cuff Location : Left Arm; Cuff Size: Standard 06-03-2018 15:13-0400 Heart rate 69 /min Nava Garcias LPN [employer]. Comment on above: Pattern: Regular 06-03-2018 15:13-0400 Systolic blood pressure 107 mm[Hg] Nava Garcias LPN [facility] [employer]. Comment on above: Patient Position: Sitting; Cuff Location : Left Arm; Cuff Size: Standard 05-27-2018 15:52-0400 Body height 160.02 cm Nava Garcias LPN [facility] [employer]. 05-27-2018 15:52-0400 Body mass index (BMI) [Ratio] 23.38 kg/m2 Nava Garcias LPN [facility] [employer]. 05-27-2018 15:52-0400 Body surface area Derived from formula 1.62 m2 Nava Garcias LPN [facility] [employer]. 05-27-2018 15:52-0400 Body temperature 97.7 [degF] Nava Garcias LPN [facility] [employer]. 05-27-2018 15:52-0400 Body weight 59.88 kg Nava Garcias LPN [facility] [employer]. 05-27-2018 15:52-0400 Diastolic blood pressure 77 mm[Hg] Nava Garcias LPN [facility] [employer], [employer]. Comment on above: Patient Position: Sitting; Cuff Location : Left Arm; Cuff Size: Standard 05-27-2018 15:52-0400 Heart rate 84 /min Nava Garcias LPN [facility] [employer]. Comment on above: Pattern: Regular 05-27-2018 15:52-0400 Systolic blood pressure 109 mm[Hg] Nava Garcias LPN [employer] [facility] [employer]. Comment on above: Patient Position: Sitting; Cuff Location : Left Arm; Cuff Size: Standard 01-04-2017 10:23-0500 Body height 160.02 cm Radha Lyons RN [employer] [facility], [employer].; [employer]. 01-04-2017 10:23-0500 Body mass index (BMI) [Ratio] 21.43 kg/m2 Radha Lyons RN [facility] [employer]. 01-04-2017 10:23-0500 Body surface area Derived from formula 1.56 m2 Radha Lyons RN [employer]. 01-04-2017 10:23-0500 Body weight 54.89 kg Radha Lyons RN [employer]. 01-04-2017 10:23-0500 Diastolic blood pressure 88 mm[Hg] Radha Lyons RN [employer]. Comment on above: Patient Position: Sitting; Cuff Location : Left Arm; Cuff Size: Standard 01-04-2017 10:23-0500 Heart rate 62 /min Radha Lyons RN [employer]. Comment on above: Pattern: Regular 01-04-2017 10:23-0500 Systolic blood pressure 139 mm[Hg] Radha Lyons RN [employer]. Comment on above: Patient Position: Sitting; Cuff Location : Left Arm; Cuff Size: Standard 12-09-2015 09:07-0500 Body height 160.02 cm Radha Lyons RN [employer]. 12-09-2015 09:07-0500 Body mass index (BMI) [Ratio] 22.32 kg/m2 Radha Lyons RN [employer]. 12-09-2015 09:07-0500 Body surface area Derived from formula 1.59 m2 Radha Lyons RN [employer]. 12-09-2015 09:07-0500 Body temperature 98.2 [degF] Radha Lyons RN [employer]. Comment on above: Method: Tympanic 12-09-2015 09:07-0500 Body weight 57.15 kg Radha Lyons RN [employer]. 12-09-2015 09:07-0500 Diastolic blood pressure 60 mm[Hg] Radha Lyons RN [employer] [facility] [employer]. Comment on above: Patient Position: Sitting; Cuff Location : Left Arm; Cuff Size: Standard 12-09-2015 09:07-0500 Heart rate 80 /min Radha Lyons RN [facility], [employer].; [employer]. Comment on above: Pattern: Regular 12-09-2015 09:07-0500 Inhaled oxygen concentration 20 % Radha [facility]ons RN [facility].; [employer]. Comment on above: Room air 12-09-2015 09:07-0500 Inhaled oxygen concentration 21 % Radha Lyons RN [employer] [facility].; [employer]. Comment on above: Room air 12-09-2015 09:07-0500 SaO2% (BldA) [Mass fraction] 99 % Radha Lyons RN [employer] [facility].; [employer]. 12-09-2015 09:07-0500 Systolic blood pressure 101 mm[Hg] Radha Lyons RN [employer]. Comment on above: Patient Position: Sitting; Cuff Location : Left Arm; Cuff Size: Standard 10-09-2015 11:45-0500 Body height 160.02 cm Leonor Zaman LPN [facility], [employer].; [employer]. 10-09-2015 11:45-0500 Body mass index (BMI) [Ratio] 23.03 kg/m2 Leonor Zaman LPN [employer] [facility].; [employer]. 10-09-2015 11:45-0500 Body surface area Derived from formula 1.61 m2 Leonor Zaman LPN [employer] [facility], [employer].; [employer]. 10-09-2015 11:45-0500 Body temperature 97.2 [degF] Leonor Zaman LPN [employer] [facility].; [employer]. Comment on above: Method: Tympanic 10-09-2015 11:45-0500 Body weight 58.97 kg Leonor Barrigaallan DEEPIKA [employer] [facility] [employer]. 10-09-2015 11:45-0500 Diastolic blood pressure 68 mm[Hg] Leonor Villalobosrios POE [facility] [employer]. Comment on above: Patient Position: Sitting; Cuff Location : Left Arm; Cuff Size: Standard 10-09-2015 11:45-0500 Heart rate 93 /min Leonor Zaman LPN [employer] [facility] [employer]. Comment on above: Pattern: Regular 10-09-2015 11:45-0500 Inhaled oxygen concentration 20 % Leonor Werios [facility] [employer] [facility], [employer].; [employer]. Comment on above: Room air 10-09-2015 11:45-0500 Inhaled oxygen concentration 21 % Leonor Wilfredorios POE [employer] [facility] [employer]. Comment on above: Room air 10-09-2015 11:45-0500 SaO2% (BldA) [Mass fraction] 98 % Leonor Werios POE [employer] [facility] [employer], [employer]. 10-09-2015 11:45-0500 Systolic blood pressure 100 mm[Hg] [facility] [employer]. Comment on above: Patient Position: Sitting; Cuff Location : Left Arm; Cuff Size: Standard 03-20-2014 08:10-0400 Body height 160.02 cm Shyla Rossi RN Work Phone: [employer]. 03-20-2014 08:10-0400 Body mass index (BMI) [Ratio] 23.74 kg/m2 Shyla Rossi RN Work Phone: [employer]. 03-20-2014 08:10-0400 Body surface area Derived from formula 1.63 m2 Shyla Rossi RN Work Phone: [employer]. 03-20-2014 08:10-0400 Body weight 60.78 kg Shyla Rossi RN Work Phone: [employer].; [employer] 03-20-2014 08:10-0400 Diastolic blood pressure 58 mm[Hg] Shyla Rossi RN Work Phone: [employer]. Comment on above: Patient Position: Sitting; Cuff Location : Right Arm; Cuff Size: Standard 03-20-2014 08:10-0400 Heart rate 63 /min Shyla Rossi RN Work Phone: [employer]. Comment on above: Pattern: Regular 03-20-2014 08:10-0400 Systolic blood pressure 101 mm[Hg] Shyla Rossi RN Work Phone: [employer]. Comment on above: Patient Position: Sitting; Cuff Location : Right Arm; Cuff Size: Standard 02-26-2012 10:45-0400 Body height 160.02 cm Shyla Rossi RN Work Phone: [employer]. 02-26-2012 10:45-0400 Body mass index (BMI) [Ratio] 21.97 kg/m2 Shyla Rossi RN Work Phone: [employer] 02-26-2012 10:45-0400 Body surface area Derived from formula 1.58 m2 Shyla Rossi RN Work Phone: [employer].; [employer]. 02-26-2012 10:45-0400 Body weight 56.25 kg Shyla Rossi RN Work Phone: [employer] 02-26-2012 10:45-0400 Diastolic blood pressure 68 mm[Hg] Shyla Rossi RN Work Phone: [employer]. Comment on above: Patient Position: Sitting; Cuff Location : Left Arm; Cuff Size: Standard 02-26-2012 10:45-0400 Heart rate 76 /min Shyla Rossi RN Work Phone: [employer]. Comment on above: Pattern: Regular 02-26-2012 10:45-0400 Systolic blood pressure 102 mm[Hg] Shyla Rossi RN Work Phone: [employer]. Comment on above: Patient Position: Sitting; Cuff Location : Left Arm; Cuff Size: Standard 02-08-2012 09:06-0400 Body height 160.02 cm Barbra Blanchard MD Work Phone: [employer]. 02-08-2012 09:06-0400 Body mass index (BMI) [Ratio] 21.97 kg/m2 Barbra Blanchard MD Work Phone: [employer]. 02-08-2012 09:06-0400 Body surface area Derived from formula 1.58 m2 Barbra Blanchard MD Work Phone: [employer]. 02-08-2012 09:06-0400 Body weight 56.25 kg Barbra Blanchard MD Work Phone: [employer]. 02-08-2012 09:06-0400 Diastolic blood pressure 71 mm[Hg] Barbra Blanchard MD Work Phone: [employer]. Comment on above: Patient Position: Sitting; Cuff Location : Right Arm; Cuff Size: Standard 02-08-2012 09:06-0400 Heart rate 66 /min Barbra Blanchard MD Work Phone: [employer]. Comment on above: Pattern: Regular 02-08-2012 09:06-0400 Systolic blood pressure 110 mm[Hg] Barbra Blanchard MD Work Phone: [employer]. Comment on above: Patient Position: Sitting; Cuff Location : Right Arm; Cuff Size: Standard 05-12-2011 08:46-0400 Body weight 59.42 kg Shyla Rossi RN Work Phone: [employer] [email or web address]; [employer]. 05-12-2011 08:46-0400 Diastolic blood pressure 82 mm[Hg] Shyla Rossi RN Work Phone: [employer]. Comment on above: Patient Position: Sitting; Cuff Location : Left Arm; Cuff Size: Standard 05-12-2011 08:46-0400 Heart rate 66 /min Shyla Rossi RN Work Phone: [employer]. Comment on above: Pattern: Regular 05-12-2011 08:46-0400 Systolic blood pressure 110 mm[Hg] Shyla Rossi RN Work Phone: [employer] [facility]; [employer]. Comment on above: Patient Position: Sitting; Cuff Location : Left Arm; Cuff Size: Standard Encounters Encounter Date Encounter Type Care Provider Facility Start: 06-28-2025 ambulatory Simon Del Rosario Facility:[facility] Start: 06-18-2025 ambulatory Zack Whalen [facility] y:[facility] Start: 05-30-2025 End: 05-30-2025 Historical Summary Leonoraasha Saldivar PA-C Work Phone: [employer] [facility] Start: 05-30-2025 End: 05-30-[address] Simon Del Rosario MD -[facility] Work Phone: Start: 05-30-2025 End: 05-30-2025 ambulatory Leonoraasha Saldivar PA Work Phone: -[facility] Start: 05-30-2025 End: 05-30-2025 ambulatory Leonora Bill Facility:[facility] Start: 05-25-2025 End: 05-25-2025 Patient encounter procedure Leonoraasha Saldivar PA-C Work Phone[facility] [employer] [facility] Start: 05-08-2025 Non-patient / Non-visit Dr. Emerita jo MD -[facility] Work Phone: Start: 04-23-2025 Non-patient / Non-visit Dr. Andrés Amador MD -[facility] Start: 04-23-2025 End: 04-23-2025 Admission to same day surgery center Dr. Maddy Amador MD -Endoscopy Work Phone: Start: 04-23-2025 End: 04-23-2025 ambulatory Leonora Saldivar PA Work Phone: [facility] Work Phone: Start: 04-16-2025 End: 04-16-2025 Patient encounter procedure Ashanti Mejía AMPOULE SEALER-C -[facility] Work Phone: Start: 04-16-2025 End: 04-16-2025 ambulatory Leonora Saldivar PA Work Phone: [facility] Work Phone: Start: 04-12-2025 End: 04-12-2025 Patient encounter procedure Leonora Saldivar PA-C Work Phone: [facility] Start: 04-03-2025 ambulatory Ashanti Canalesi ty:[facility] Start: 04-03-2025 Non-patient / Non-visit Dr. Dangelo perla DO -[facility] Start: 04-01-2025 End: 04-01-2025 ambulatory Leonora Saldivar PA Work Phone: [facility] Work Phone: Start: 04-01-2025 End: 04-01-2025 Patient encounter procedure Ashanti Mejía AMPOULE SEALER-C -Sleep Lab Work Phone: Start: 04-01-2025 End: 04-01-2025 ambulatory Ashanti Mejía Facility:[facility] Start: 03-27-2025 End: 03-27-2025 ambulatory Leonora Saldivar PA Work Phone: [facility] Work Phone: Start: 03-27-2025 End: 03-27-2025 Patient encounter procedure Ashanti Mejía AMPOULE SEALER-C -Pulmonary Services/Neurology Work Phone: Start: 03-27-2025 End: 03-27-2025 ambulatory Ashanti Mejía Facility:[facility] Start: 03-23-2025 ambulatory Simon Del Rosario Facility:[facility] Start: 03-23-2025 Non-patient / Non-[facility] -[facility] Start: 03-23-2025 End: 03-23-2025 Patient encounter procedure Ashanti Mejía AMPOULE SEALER-C -Cardiovascular Services Work Phone: Start: 03-23-2025 End: 03-23-2025 ambulatory Ashanti Mejía Facility:[facility] Start: 03-05-2025 End: 03-05-2025 Patient encounter procedure Ashanti Mejía AMPOULE SEALER-C -[facility] Work Phone: Start: 03-05-2025 End: 03-05-2025 ambulatory Ashanti Mejía Facility:[facility] Start: 02-02-2025 End: 02-02-2025 Office outpatient visit 15 minutes Leonora Saldivar PA-C Work Phone: [employer] Start: 01-10-2025 End: 01-10-2025 Patient encounter procedure Leonora Saldivar PA-C Work Phone: [employer]. Start: 01-08-2025 End: 01-08-2025 Orders Leonora Saldivar PA-C Work Phone: [employer]. Start: 01-08-2025 End: 01-08-2025 ambulatory LEONORA PAC SALDIVAR [facility] Start: 01-08-2025 End: 01-08-2025 Office outpatient visit 25 minutes Leonora Saldivar PA-C Work Phone: [employer]. Start: 01-08-2025 Review Leonora Saldivar P A-C Work Phone: [employer]. Start: 12-18-2024 End: 02-10-2025 Patient encounter procedure Ashanti Mejía AMPOULE SEALER-C -Pulmonary Services/Neurology Work Phone: Start: 12-18-2024 End: 12-18-2024 ambulatory Ashanti Mejía Facility:[facility] Start: 12-11-2024 End: 12-11-2024 Patient encounter procedure Ashanti Kym AMPOULE SEALER-C -Cat Scan [facility] Work Phone: Start: 12-11-2024 End: 12-11-2024 ambulatory Ashanti Mejía Facility:[facility] Start: 08-28-2024 End: 08-28-2024 ambulatory Ashanti Mejía Facility:[facility] Start: 07-31-2024 Review Leonora Segovia A-C Work Phone: [facility] [facility] Start: 07-24-2024 End: 07-24-2024 ambulatory [facility] Facility:[facility] Start: 07-24-2024 End: 07-24-2024 Patient encounter procedure Laurita Alamo HIV/AIDS CARE NURSE.TRANSFORMATION SPECIALIST Work Phone: OB/Gynecology Comment on above: Menopausal symptoms (Primary Dx); OAB (overactive bladder) Start: 07-13-2024 End: 07-13-2024 Patient encounter status Leonora Saldivar PA-C Work Phone: [employer] [facility]; [employer]. Start: 07-13-2024 End: 07-13-2024 Periodic preventive med est patient 40-64yrs Leonora DOVEC Work Phone: [employer] [facility] Start: 07-13-2024 Review Leonora Saldivar P A-C Work Phone: [employer] [facility]. Start: 06-23-2024 End: 06-23-2024 ambulatory LEONORA SALDIVAR [facility] Start: 06-15-2024 Telephone encounter Laurita Metc rachelle HIV/AIDS CARE NURSE.TRANSFORMATION SPECIALIST Work Phone: OB/Gynecology Comment on above: Results Start: 05-29-2024 End: 05-29-2024 ambulatory [facility] Facility:[facility] Start: 05-29-2024 End: 05-29-2024 Patient encounter procedure Laurita Wingcalf HIV/AIDS CARE NURSE.TRANSFORMATION SPECIALIST Work Phone: OB/Gynecology Comment on above: Unintended weight ga in (Primary Dx); OAB (overactive bladder); Forgetfulness; Hot flashes; Screening cholesterol level; Screening for diabetes mellitus; Screening for metabolic disorder; Encounter for vitamin deficiency screening Start: 05-22-2024 End: 05-22-2024 ambulatory LEONORA SALDIVAR [facility] Start: 05-03-2024 ambulatory Pending sale to [facility] Start: 05-01-2024 End: 05-01-2024 Orders Leonora Saldivar PA-C Work Phone: [employer] [facility] Start: 03-27-2024 End: 03-27-2024 ambulatory LAURITA SHAHEEN Facility:[facility] Start: 03-27-2024 End: 03-27-2024 Patient encounter procedure Laurita Jamison APRN.TRANSFORMATION SPECIALIST Work Phone: OB/Gynecology Comment on above: Encounter for gyneco logical examination (general) (routine) without abnormal findings (Primary Dx); Hot flashes; Encounter for screening mammogram for malignant neoplasm of breast Start: 03-27-2024 End: 03-27-2024 Patient encounter status Laurita Wingcalf HIV/AIDS CARE NURSE.TRANSFORMATION SPECIALIST Work Phone: [facility] Start: 01-24-2024 End: 01-24-2024 ambulatory PA Leonora Saldivar Work Phone: [facility] Work Phone: Start: 01-24-2024 End: 01-24-2024 Patient encounter procedure PA Leonora Saldivar Work Phone: [facility]-Pulmonary Services/Neurology Work Phone: Start: 01-07-2024 End: 01-07-2024 Patient encounter procedure Leonora Saldivar PA-C Work Phone: [employer] [facility] Start: 01-04-2024 End: 01-04-2024 Office outpatient visit 25 minutes Leonora Saldivar PA-C Work Phone: [facility]. Start: 01-03-2024 End: 01-03-2024 Patient encounter procedure LINA Saldivar Work Phone: [facility]-Pulmonary Medicine [facility] Work Phone: Start: 12-13-2023 Non-patient / Non-visit Dr. Jaylyn Adam Work Phone: [facility] Start: 12-13-2023 End: 12-13-[address] Carlin Adam Work Phone: [facility] Work Phone: Start: 12-13-2023 End: 12-13-[address] Carlin Adam Work Phone: [facility]-Cardiovascula r Services Work Phone: Start: 11-03-2023 End: 11-03-[address] Carlin Adam Work Phone: [facility]-Pulmonary Medicine [facility] Work Phone: Start: 10-26-2023 Non-patient / Non-visit Dr. Jaylyn Adam Work Phone: [facility] Start: 10-25-2023 End: 10-25-[address] Carlin Adam Work Phone: [facility] Work Phone: Start: 10-25-2023 End: 10-25-[address] Carlin Adam Work Phone: [facility]-Pulmonary Services/Neurology Work Phone: Start: 09-15-2023 End: 09-15-[address] Carlin Adam Work Phone: [facility]-Pulmonary Medicine [facility] Work Phone: Start: 08-27-2023 End: 08-27-2023 Medication Leonora MILLS-C Work Phone: [employer] Start: 08-27-2023 End: 08-27-2023 Medication Leonora Saldivar PA-C Work Phone: [employer] Start: 08-26-2023 End: 08-26-2023 ambulatory [facility] Start: 08-09-2023 End: 08-09-2023 Office outpatient visit 40 minutes Leonora Saldivar PA-C Work Phone: [employer] Start: 07-22-2023 End: 07-22-2023 Orders Leonora Saldivar PA-C Work Phone: [employer] Start: 07-19-2023 End: 07-19-2023 Medication Leonora Saldivar PA-C Work Phone: [employer] Start: 07-13-2023 End: 07-13-2023 Patient encounter procedure Leonora Saldivar PA-C Work Phone: [employer] Start: 07-08-2023 ambulatory Pending sale to [facility] Start: 07-08-2023 End: 07-08-2023 ambulatory Critical access hospital Start: 06-11-2023 End: 06-14-2023 Periodic preventive med est patient 40-64yrs Leonora Saldivar PA-C Work Phone: [employer] Start: 06-11-2023 End: 06-14-2023 Physical examination Leonora Saldivar PA-C Work Phone: [employer] Start: 05-20-2023 End: 05-20-2023 Orders Leonora Saldivar PA-C Work Phone: [employer] Start: 05-19-2023 End: 05-19-2023 Orders Leonora Saldivar PA-C Work Phone: [employer] Start: 04-26-2023 End: 06-19-2023 Orders Leonora Saldivar PA-C Work Phone: [employer] Start: 10-15-2021 End: 10-15-2021 Office outpatient visit 15 minutes Leonora Saldivar PA-C Work Phone: [employer] Start: 08-04-2021 End: 08-04-2021 Office outpatient visit 15 minutes Leonora Asldivar PA-C Work Phone: [employer] Start: 06-16-2019 End: 06-16-2019 Orders Leonora Saldivar PA-C Work Phone: [employer] Start: 01-26-2019 End: 01-26-2019 Office outpatient visit 15 minutes Leonora Saldivar PA-C Work Phone: [employer] Start: 01-12-2019 End: 01-12-2019 Historical Summary Leonora Saldivar PA-C Work Phone: [employer] Start: 11-29-2018 End: 11-29-2018 Office outpatient visit 15 minutes Leonora Saldivar PA-C Work Phone: [employer] Start: 10-05-2018 End: 10-05-2018 Telephone follow-up Leonora Saldivar PA-C Work Phone: [employer] Start: 08-26-2018 End: 08-26-2018 Office outpatient visit 15 minutes Leonora Saldivar PA-C Work Phone: [employer] Start: 06-03-2018 End: 06-03-2018 Office outpatient visit 15 minutes Leonora Saldivar PA-C Work Phone: [employer] Start: 05-27-2018 End: 05-27-2018 Office outpatient visit 15 minutes Leonora Saldivar PA-C Work Phone: [employer] Start: 01-25-2017 End: 01-25-2017 Orders Leonora Saldivar PA-C Work Phone: [employer] Start: 01-13-2017 End: 01-13-2017 Orders Leonora Saldivar PA-C Work Phone: [employer] Start: 01-05-2017 End: 01-05-2017 Orders Leonora Saldivar PA-C Work Phone: [employer] Start: 01-04-2017 End: 01-04-2017 Patient encounter procedure Leonora Saldivar PA-C Work Phone: [employer] Start: 01-04-2017 End: 01-04-2017 Patient encounter status Leonora Saldivar PA-C Work Phone: [employer] Start: 12-12-2015 End: 12-12-2015 Medication Leonora Saldivar PA-C Work Phone: [employer] Start: 12-09-2015 End: 12-09-2015 Office outpatient visit 15 minutes Leonora Saldivar PA-C Work Phone: [employer] Start: 10-09-2015 End: 10-09-2015 Patient encounter procedure Leonora Saldivar PA-C Work Phone: [employer] Start: 05-24-2014 End: 05-24-2014 Orders Leonora Saldivar PA-C Work Phone: [employer] Start: 04-24-2014 End: 04-24-2014 Orders Leonora Saldivar PA-C Work Phone: [employer] Start: 03-20-2014 End: 03-20-2014 Patient encounter procedure Leonora Saldivar PA-C Work Phone: [employer] Start: 02-26-2012 End: 02-26-2012 Patient encounter procedure Leonora Saldivar PA-C Work Phone: [employer] Start: 02-26-2012 End: 02-26-2012 Routine gynecological examination Leonora Saldivar PA-C Work Phone: [employer] [facility]. Start: 02-12-2012 End: 02-12-2012 Medication Leonora Saldivar PA-C Work Phone: [facility] [employer] Start: 02-08-2012 End: 02-08-2012 Historical Summary Leonora Saldivar PA-C Work Phone: [employer] Start: 02-08-2012 End: 02-08-2012 Patient encounter procedure Leonora Saldivar PA-C Work Phone: [employer] Start: 05-12-2011 End: 05-12-2011 Patient encounter procedure Leonora Saldivar PA-C Work Phone: [facility] [facility] Follow-up encounter Leonora J Be an PA-C Work Phone: [employer] [facility].; [employer] [facility] Patient encounter status Lady Mcbride [facility] [employer] [facility].; [employer] [facility] Patient encounter status Bridget Smith MA [facility].; [employer] [facility] Physical examination Leonora Sherman ean PA-C Work Phone: [employer] [facility].; [employer] [facility] Routine gynecologica l examination Lady Bowers LPN [employer] [facility].; [employer] [facility] Procedures Date Procedure Procedure Detail Performing Clinician Start: 05-30-2025 End: 05-30-2025 Most Recent Cardio Labs Leonora Saldivar PA- C Work Phone: Start: 05-30-2025 End: 05-30-2025 Most Recent Cardio Report Leonora Saldivar PA-C Work Phone: Start: 04-23-2025 End: 04-23-2025 Screening colonoscopy Elizabeth Beard MA Comment on above: [facility], polyps repeat 5 -10 years Start: [...] Previous delivery, antepartum condition or complication Lauritaanuja [employer] TRANSFORMATION SPECIALIST Work Phone: section Elizabeth robins MA Comment [...] DTaP,Tdap,Td Vaccine (2 - Td or Tdap) [facility] Start: 07-16-2025 Patient encounter procedure Medical; PHYSICAL - AWV [employer] Start: 16-Jul-2025 10:00-04:00 BENOIT Saldivar Appointment Request [employer] Start: 07-02-2025 Blood count complete auto&auto difrntl wbc CBC, PLATELETS & AUT DIFF (F) (00925) Start: 02-Jul-2025 Request [employer]; [employer] Start: 07-02-2025 Comprehensive metabo lic panel CMP w/ GFR* (81253) Start: 02-Jul-2025 Request [employer]; [employer] Start: 07-02-2025 Hemoglobin glycosyla aura a1c HEMOGLOBIN A1C* (36667) Start: 02-Jul-2025 Request [employer]; [employer] Start: 07-02-2025 Lipid panel LIPID PANEL (8 0061) Start: 02-Jul-2025 Request [employer]; [employer] Start: 07-02-2025 Nursing evaluation o f patient and report [employer] Start: 05-30-2025 Evaluation of diagno stic study results [facility] Start: 04-23-2025 Colsc flx w/rmvl of tumor polyp lesion snare tq COLONOSCOPY W/LESION REMOVAL [facility] Start: 04-23-2025 Patient discharge [facility] Start: 04-16-2025 Patient referral [facility] Work Phone: Start: 04-01-2025 Polysomnography [facility] Start: 03-29-2025 End: 03-29-2025 Patient encounter procedure 03/29/2025 11:00 AM EDT Office Visit OB/Gynecology [address] [place], [place] [id number] Laurita Jamison APRN.TRANSFORMATION SPECIALIST [address] [place] [address] Annual OB/Gynecology Comment on above: Annual Start: 03-23-2025 Echo tthrc r-t 2d w/wom-mode compl spec&colr d TTE W/DOPPLER COMPLETE [facility] Start: 01-08-2025 Radex foot complete minimum 3 views Foot, Right Complete x-ray ([id number]) Start: 08-Jan-2025 Intent [employer] Start: 01-08-2025 Patient encounter procedure Medical; EXTENDED RTN - 6 MO RTN [employer] Start: 08-Jan-2025 10:50-05:00 BENOIT Saldivar Appointment Request [employer] Start: 07-13-2024 Patient encounter procedure Medical; PHYSICAL - AWV [employer] Start: 13-Jul-2024 09:50-04:00 BENOIT Saldivar Appointment Request [employer] Start: 07-09-2024 Covid-19 Vaccine () Covid-[address] Vacc[address] () [facility] Start: 07-09-2024 Influenza vaccination [facility] Start: 07-03-2024 Patient encounter procedure Medical; PHYSICAL - AWV [employer] Start: 03-Jul-2024 10:50-04:00 BENOIT Saldivar Appointment Request [employer] Start: 06-23-2024 Blood count complete auto&auto difrntl wbc CBC, PLATELETS & AUT DIFF (F) (01455) Start: 23-Jun-2024 Request [employer] Start: 06-23-2024 Comprehensive metabo lic panel CMP w/ GFR* (43148) Start: 23-Jun-2024 Request [employer] Start: 06-23-2024 Lipid panel LIPID PANEL (8 0061) Start: 23-Jun-2024 Request [employer] Start: 06-23-2024 Nursing evaluation o f patient and report Medical; Nurse visit - fasting labs - RJB [employer] Start: 23-Jun-2024 08:20-04:00 NURSE, FLOAT Appointment Request [employer] Start: 05-29-2024 End: 08-28-2024 25-hydroxyvitamin D3 [Mass/volume] in Serum or Plasma VITAMIN D 25 HYDROXY Lab Routine Encounter for vitamin deficiency screening Expected: 05/29/2024, Expires: 08/28/2024 [facility] Work Phone: Comment on above: Expected: 05/29/2024 , Expires: 08/28/2024 Start: 05-29-2024 End: 08-28-2024 Comprehensive metabolic 2000 panel - Serum or Plasma COMPREHENSIVE METABOLIC PANEL Lab Routine Screening for diabetes mellitus Screening for metabolic disorder Expected: 05/29/2024, Expires: 08/28/2024 [facility] Comment on above: Expected: 05/29/2024 , Expires: 08/28/2024 Start: 05-29-2024 End: 08-28-2024 Follitropin [Units/volume] in Serum or Plasma FOLLICLE STIMULATING HORMONE Lab Routine Hot flashes Expected: 05/29/2024, Expires: 08/28/2024 [facility] Comment on above: Expected: 05/29/2024 , Expires: 08/28/2024 Start: 05-29-2024 End: 08-28-2024 Hemoglobin A1c in Blood HEMOGLOBIN A1C Lab Routine Screening for diabetes mellitus Expected: 05/29/2024, Expires: 08/28/2024 [facility] Comment on above: Expected: 05/29/2024 , Expires: 08/28/2024 Start: 05-29-2024 End: 08-28-2024 Insulin [Units/volume] in Serum or Plasma INSULIN ASSAY BLOOD Lab Routine Screening for diabetes mellitus Expected: 05/29/2024, Expires: 08/28/2024 [facility] Comment on above: Expected: 05/29/2024 , Expires: 08/28/2024 Start: 05-29-2024 End: 08-28-2024 Lipid 1996 panel - Serum or Plasma LIPID PANEL BASIC Lab Routine Screening cholesterol level Expected: 05/29/2024, Expires: 08/28/2024 [facility] Comment on above: Expected: 05/29/2024 , Expires: 08/28/2024 Start: 05-29-2024 End: 08-28-2024 Thyrotropin [Units/volume] in Serum or Plasma THYROID STIMULATING HORMONE Lab Routine Unintended weight gain Expected: 05/29/2024, Expires: 08/28/2024 [facility] Comment on above: Expected: 05/29/2024 , Expires: 08/28/2024 Start: 05-21-2024 Screening for malign ant neoplasm of breast Mammogram Screening [facility] Start: 05-01-2024 End: 05-01-2024 Patient encounter procedure 05/01/2024 12:45 PM EDT Office Visit OB/Gynecology [address] [place] [address] Laurita Jamison, FELICITAS.TRANSFORMATION SPECIALIST [address] [place] [address] Follow up OB/Gynecology Comment on above: Follow up Start: 01-04-2024 Patient encounter procedure Medical; EXTENDED RTN - 4 mo rtn [facility] Start: 04-Jan-2024 10:50 BENOIT Saldivar [facility]ointment [facility] Start: 11-08-2023 Behavioral Health Screening Behavioral Health Screening [facility] Start: 11-03-2023 Patient referral [facility] Work Phone: Start: 07-09-2023 Covid-19 Vaccine () Covid-19 Vaccine () [facility] Start: 05-19-2023 Blood count complete auto&auto difrntl wbc [facility] Start: 07-03-2022 Diabetes Screening Diabetes Screenin g [facility] Start: 01-12-2022 Screening for malign ant neoplasm of cervix Pap Testing [facility] Start: 01-13-2020 Screening for malign ant neoplasm of cervix Cervical Cancer Screening [facility] Start: 2019 Lipid panel Lipid Screening [facility] Start: 2019 Screening for malign ant neoplasm of colon [facility] Start: 2004 Screening for malign ant neoplasm of cervix HPV Testing [facility] Start: 2004 Zoledronic acid therapy Alpha- [address] [facility] Start: 1993 Hepatitis B Vaccine (1 of 3 - 19+ 3-dose series) Hepatitis B Vaccine (1 of 3 - 19+ 3-dose series) [facility] Start: 1992 Annual PCP Team Outside Laborer ariella Disease Visit Annual PCP Team Chronic Disease Visit [facility] Start: 1992 Anxiety Screening Anxiety Screening [facility] Start: 1992 Depression Screening Depression Scre ening [facility] Start: 1992 HIV screening HIV Screening [facility] julienne [facility] Start: 1980 Pneumococcal vaccination Pneum ococcal Vaccine (1 of 2 - PCV) [facility] Basic metabolic 2008 panel with ionized calcium - Serum or Plasma [facility] CBC W Auto Different ial panel - Blood [facility] CT Chest [facility] Natriuretic peptide. B prohormone N-Terminal [Mass/volume] in Serum or Plasma [facility] Patient referral [facility] Work Phone: Radionuclide imaging of perfusion of myocardium under exercise stress [facility] dexAMETHasone so d phos (bulk) 100 % powder Ordered: 27-May-2018 MD Carlin Adam [facility], [facility] Immunizations Immunization Date Immunization Notes Care Provider Fa bell 07-22-2023 tetanus toxoid, redu beatriz diphtheria toxoid, and acellular pertussis vaccine, adsorbed Leonora Saldivar PA-C Work Phone: [facility] [place]. Comment on above: Site: Right Lori watts: * Tdap (06/13/21) 01-24-2009 tetanus and diphther ia toxoids, adsorbed, preservative free, for adult use (2 Lf of tetanus toxoid and 2 Lf of diphtheria toxoid) Leonora Saldivar PA-C Work Phone: [facility] [place]. Payers Date Payer Category Payer Self-pay [id number] 2022 Medicaid UHC MEDICAID UHC COMMUNITY [employer]AN MEDICA[place] OF [place] [id number] 2022-Present [phone] [address] [place] [address] Medicaid [id number] 2022 Unknown [id number] 1974 Unknown [id number] 2.16.840.1.390843.3.579.2. 297 1974 Unknown [id number] 2.16.840.1.147619.3.579.2. 297 1974 Unknown [id number] 2.16.840.1.579839.3.579.2. 297 1974 Unknown [id number] 2.16.840.1.288948.3.579.2. 297 1974 Unknown [id number] 2.16840.1.204423.3.579.2. 651 1974 Unknown [id number] 2.16.840.1.543070.3.579.2. 651 1974 Unknown [id number] 2.16.840.1.295776.3.579.2. 651 Private Health Insurance [id number] Unknown [facility] Unknown [id number] 2.16840.1.669701.3.579.2. 462 Unknown [id number] 2.16.840.1.505782.3.579.2. 462 Unknown [id number] 2.16.840.1.437789.3.579.2. 462 Unknown [id number] 2.16.840.1.629755.3.579.2. 462 Unknown [id number] 2.16.840.1.094622.3.579.2. 462 Unknown [id number] 2.16840.1.380163.3.579.2. 462 Unknown [id number] 2.16.840.1.114197.3.579.2. 462 Unknown [id number] 2.16.840.1.047974.3.579.2. 462 Unknown [id number] 2.16.840.1.648231.3.579.2. 462 Unknown [id number] 2.16.840.1.605851.3.579.2. 462 Unknown [id number] 2.16.840.1.751364.3.579.2. 462 Unknown [id number] 2.16.840.1.172929.3.579.2. 462 Unknown [id number] 2.16.840.1.620348.3.579.2. 462 Unknown [id number] 2.16.840.1.886438.3.579.2. 462 Unknown [id number] 2.16.840.1.198072.3.579.2. 462 Unknown [id number] 2.16.840.1.674881.3.579.2. 462 Unknown [id number] 2.16.840.1.918938.3.579.2. 462 Social History Date Type Detail Facility Start: 09-15-2023 End: 01-03-2024 Tobacco smoking status TNIS Unknown if ever smoked [facility] Start: 01-10-[address]-sm[address] [facility] Start: 1975 Sex Assigned At Female [facility] Alcohol Use: Alcohol Use: ; Occasional alcohol use. 7 or fewer drinks per week. [employer] Start: 03-27-2024 End: 07-24-2024 Caffeine Use Caffeine Use [employer] [place] Tobacco Use: Tobacco Use: ; F ormer smoker. [employer] Occasional alcohol use [facility] [employer] Work Phone: Smokes tobacco daily [employer] Work Phone: Smokes 1 pack of cigarettes per day [facility].; [facility] Work Phone: Smoker [facility].; [facility]. Work Phone: Start: 03-27-2024 End: 04-23-2025 Ex-smoker [facility].; [facility]. Work Phone: History of tobacco use Cigarette Smoker [facility] History of tobacco use Passive smoker [facility] Start: 03-27-2024 End: 07-24-2024 Tobacco use and exposure Smokeless tobacco non-user [facility] Start: 03-27-2024 End: 07-24-2024 Alcohol intake Current non-drinker of alcohol (finding) [facility] Start: 03-27-2024 End: 07-24-[address] [facility] National Score (1-100), lower number is lower risk 83 [facility] Start: 1975 Sex Assigned At Not on file [facility] NEGATED: Highlighted row Not [facility] Goals Date Patient Goal Desired Activity /State Mental Status Date Assessment Result Facility 04-23-2025 Cognitive function Voice/Name [facility] Work Phone: Clinical Notes 10-26-2023 to 04-23-2025 Note Date & Type Note Facility 04-23-2025 Consult note [facility] 04-23-2025 History and physi norbert note Note Date/Time April 23, 2025 7:34am [facility] Medical Records Department [address] [place] [address] History & Physical Exam 04/23/25 0726 MR#: [id number] Acct: [id number] Name: LILLIE HOLLAND Rep #:[id number] : 1975 49 From: Maddy Amador MD PCP: LINA Mckeon Status:[facility] Location: [place] [address] HPI - General General Date of Service: [...] pain/nausea/vomiting. Patient's reflux is controlled with omeprazole. [facility] Medical History (Updated 04/23/25 @ 07:29 by [...] 06:58) Discharge Is Pt Admitted From a Fpc, or a Fci: No After D/C, Where Do you Plan [...] Dr. Maddy Amador MD; LINA Mckeon~ Signed [facility] Work Phone: 1(821) 363-668306-16-2025 Procedure note [facility] Medical Records Department [address] [place] [address] Colonoscopy Report MR#: [id number] Acct: [id number] Name: LILLIE HOLLAND Rep #:[id number] : 1975 49 From: Maddy Amador MD PCP: LINA Mckeon Status:[facility] Patient Name: Lillie Holland Procedure [...] pathology results. Procedure Code(s): --- Professional --- 78233, PT, Colonoscopy, flexible; with removal of tumor(s), polyp(s), or other lesion(s) by snare technique Diagnosis Code(s): --- Professional --- Z86.010, Personal history of colonic polyps D12.5, Benign neoplasm of sigmoid colon CPT copyright 2021 [employer]. All rights reserved. The codes documented in this report are preliminary and upon spool cleaner hand review may be revised to meet current compliance requirements. MD Maddy Jc MD 04/23/2025 8:41:10 AM This report has been signed electronically. Number of Addenda: 0 Note Initiated On: 04/23/2025 8:05 AM 04/23/25 0841 Date _ Maddy Amador MD Cosigner Signature: Date (if indicated) CC: Dr. Maddy Amador MD; LINA Mckeon ~ Date Dictated: 04/23/25804 Date Transcribed: Manager Employment: TR Signed [facility]06-16-2025 Procedure note [facility] Medical Records Department [address] [place] [address] Operative Report - CC Letter MR#: [id number] Acct: [id number] Name: LILLIE HOLLAND Rep #:[id number] : 1975 49 From: Maddy Amador MD PCP: LINA Mckeon Status:REG [facility] 04/23/2025 Lina Mckeon Re : Colonoscopy procedure for Lillie [...] Mckeon ~ Date Dictated: 04/23/25804 Date Transcribed: Manager Employment: TR Signed [facility]06-16-2025 Consult note [facility] Medical Records Department [address] [place] [address] Pre-Anesthesia Evaluation 04/23/25 0747 MR#: [id number] Acct: [id number] Name: LILLIE HOLLAND Rep #:[id number] : 1975 49 From: Yovani Walker MD PCP: LINA Mckeon Status:REG SD Y Race: C Location: [place] [address] ASA Classification* ASA Classification ASA Classification: 3 [...] Procedure(s): COLONOSCOPY-OA Anesthesia History Anesthesia History - deicer tester: Anesthesia History - deicer tester Hx Hospitalization Yes: NAUSEA WITH CSECTION 04/23/25 [...] sips of water?: Yes PONV PONV - deicer tester: PONV - deicer tester Female Yes 04/19/25 12:09 HX of Motion [...] 04/23/25 06:59 Respiratory Assessment Respiratory Assessment - deicer tester: Respiratory Tract Infection Hx - deicer tester Hx Respiratory Tract Infection No 04/23/25 07:30 STOP Sleep Apnea STOP Sleep Apnea - deicer tester: STOP Sleep Apnea - deicer tester Hx Hypertension No 04/23/25 07:30 Hx Sleep [...] Tobacco Use History Tobacco Use History - deicer tester: Tobacco Use History - deicer tester Tobacco Use Smoking Status Former smoker 04/23/25 07:30 Hx Tobacco Use Yes 04/19/25 12:09 Years Smoking Packs Smoked per Day Smoking Cessation Date was Yes - quit smoking within 15 04/19/25 12:09 within the last 15 years years Hx Smoking Cessation Date Hx Smoking Cessation Counseling Hematologic Medial History Hematologic Hx - deicer tester: Hematologic Medical Hx - program manager environmental planning Hx of Blood Transfusion No 04/19/25 12:09 [...] confused, unrespo /Reproduction History /Reproductive History - deicer tester: /Reproductive Hx- deicer tester Hx Now No 04/23/25 07:30 Gestational Age [...] MD Cosigner Signature: Date CC: ~ Signed [facility]06-16-2025 History and physical note [facility] Medical Records Department [address] [place] [address] History & Physical Exam 04/23/25725 MR#: [id number] Acct: [id number] Name: LILLIE HOLLAND Rep #:[id number] : 1975 49 From: Maddy Amador MD PCP: LINA Mckeon Status:[facility] Location: [place] [address] HPI - General General Date of Service: 04/23/25 [facility] Narrative LILLIE HOLLAND, is a 49 [...] pain/nausea/vomiting. Patient's reflux is controlled with omeprazole. [facility] Medical History (Updated 04/23/25 @ 07:29 by [...] 06:58) Discharge Is Pt Admitted From a Fpc, or a Fci: No After D/C, Where Do you Plan [...] Dr. Maddy Amador MD; LINA Mckeon~ Signed [facility]06-16-2025 [facility] Medical Records Department [address] [place] [address] History Physical Exam 04/23/25 0726 MR#: [id number] Acct: [id number] Name: LILLIE HOLLAND Rep #: [id number] : 1975 49 From: Maddy Amador MD PCP: LINA Mckeon Status:[facility] Location: [place] [address] HPI - General General Date of Service: [...] pain/nausea/vomiting. Patient's reflux is controlled with omeprazole. [facility] Medical History (Updated 04/23/25 @ 07:29 by [...] No Do You Of (more content not included)...[facility]04-28-2025 Evaluation note* Diagnosis Onset Date Resolution Status Admit Date Daytime hypersomnia acute March 05, 2025 12:53pm Obesity acute March 05 12:53pm Dyspnea chronic March 05 12:53pm Fibromyalgia chronic March 05, 2025 12:53pm Smoking greater than 20 pack years chronic March 05, 2025 12:53pm [facility] Work Phone: 1(421) 815-681504-28-2025 Evaluation note* Diagnosis Onset Date Resolution Status [...] years chronic April 16, 2025 1 1:13am [facility] Work Phone: 1(747) 998-720404-28-2025 Evaluation note* Diagnosis Onset Date Resolution Status [...] colonic polyp acute April 23, 2025 6:35am [facility] Work Phone: 1(578) 184-884104-28-2025 Evaluation note* Diagnosis Onset Date Resolution Status [...] 6:35am Chest pain acute May 30 11:06am [facility] Work Phone: 1(295) 455-720309-16-2024 NoteHNO ID: [id number] Author: LAURITA JAMISON APRN.TRANSFORMATION SPECIALIST Service: ? 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 Telephone encounter Note * Telephone Encounter - Leonor Hernandez RN - 06/16/2024 10:01 AM EDT No lab results found per [facility]. Note in patient's chart states to call after 4:00 PM. Leonor [address] RN [facility]08-09-[facility]24 Miscellaneous Notes* Telephone Encounter - Leonor Hernandez RN - 06/16/2024 10:01 AM EDT No lab results found per [facility]. Note in patient's chart states to call after 4:00 PM. Leonor Hernandez RN * Telephone Encounter - Leonor Hernandez RN - 06/15/2024 3:47 PM EDT Request faxed. Leonor Hernandez RN * Telephone Encounter - Laurita Jamison APRN.CNP - 06/15/2024 3:31 PM EDT Can we contact [facility] to see if they have any labs results since 05/29. Pt was to get labs done there and I haven't receive anything. Laurita Jamison APRN.CNP documented [facility] Telephone encounter Note * Telephone Encounter - Leonor Hernandez RN - 06/15/2024 3:47 PM EDT Request faxed. Leonor Hernandez RN [facility]08-[facility] Telephone encounter Note* Telephone Encounter - Laurita Jamison APRN.CNP - 06/15/2024 3:31 PM EDT Can we contact [facility] to see if they have any labs results since 05/29. Pt was to get labs done there and I haven't receive anything. Laurita Jamison APRN.CNP [facility]07-22-2024 NoteHNO ID: [id number] Author: LAURITA JAMISON APRN.CNP Service: ? 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 Laurita Jamison APRN.CNP Medical Decision Making: Problems: Moderate: New problem with uncertain prognosis Data: Unique test(s) ordered: 3+ Risk: Moderate: Drug management Medical Decision Making Level: 4 - Moderate .[facility] History of Present illness Narrative* Laurita Jamison APRN.TRANSFORMATION SPECIALIST - 05/29/2024 2:07 PM EDT Lillie Holland is a 48 year old female who presents for medication follow up HPI: she has not notice a difference with the estrace decreasing to hot flashes. She also is concerned about the unexplained weight gain, fatigue, and urinary urgency. 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 Laurita Jamison APRN.CNP Medical Decision Making: Problems: Moderate: New problem with uncertain prognosis Data: Unique test(s) ordered: 3+ Risk: Moderate: Drug management Medical Decision Making Level: 4 - Moderate . documented in this encounterSt[facility]-2024 NoteHNO ID: [id number] Author: LAURITA JAMISON APRN.CNP Service: ? 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 History Comments: Sexual Activity: Yes; Male Contraception: [...] external genitalia normal, normal Bartholin's glands, urethra, Gratton's glands, no vulvar lesions, good vaginal support, [...] V76.12, ICD10: Z12.31 - order give for [facility] Laurita Jamison APRN.[facility]05-20-2024 History of Present illness Narrative* Laurita Jamison APRN.[facility] - 03/27/2024 10:27 AM EDT Mobile Home Mechanic offered: Patient declinesDmitriy Moreira is a 48 [...] L2 SAB0 IAB0 Ectopic0 Multiple0 Live 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 [facility]12-[facility]23 [facility]ani [facility] Note Date/Time April 23, 2025 7:54 am [facility] Medical Records Department [address] [place] [address] Pre-Anesthesia Evaluation 04/23/25 0747 MR#: [id number] Acct: [id number] Name: LILLIE HOLLAND Rep #:[id number] : 1975 49 From: Yovani Walker MD PCP: LINA Mckeon Status:REG [facility] Y Race: C Location: [place] [address] ASA Classification* ASA Classification ASA Classification: 3 [...] Procedure(s): COLONOSCOPY-OA Anesthesia History Anesthesia History - deicer tester: Anesthesia History - deicer tester Hx Hospitalization Yes: NAUSEA WITH CSECTION 04/23/25 [...] sips of water?: Yes PONV PONV - deicer tester: PONV - deicer tester Female Yes 04/19/25 12:09 HX of Motion [...] 04/23/25 06:59 Respiratory Assessment Respiratory Assessment - deicer tester: Respiratory Tract Infection Hx - deicer tester Hx Respiratory Tract Infection No 04/23/25 07:30 STOP Sleep Apnea STOP Sleep Apnea - deicer tester: STOP Sleep Apnea - deicer tester Hx Hypertension No 04/23/25 07:30 Hx Sleep [...] Tobacco Use History Tobacco Use History - deicer tester: Tobacco Use History - deicer tester Tobacco Use Smoking Status Former smoker 04/23/25 07:30 Hx Tobacco Use Yes 04/19/25 12:09 Years Smoking Packs Smoked per Day Smoking Cessation Date was Yes - quit smoking within 15 04/19/25 12:09 within the last 15 years years Hx Smoking Cessation Date Hx Smoking Cessation Counseling Hematologic Medial History Hematologic Hx - deicer tester: Hematologic Medical Hx - program manager environmental planning Hx of Blood Transfusion No 04/19/25 12:09 [...] confused, unrespo /Reproduction History /Reproductive History - deicer tester: /Reproductive Hx- deicer tester Hx Now No 04/23/25 07:30 Gestational Age [...] no additional complaints, except as documented. 04/23/25 0751 <Electronically signed by Yovani hernandez MD> Date _ Yovani Walker MD Cosigner Signature: Date CC: ~ Signed [facility] Work Phone: Consult note Author Jesse Gore [facility] Note Date/Time April 23, 2025 9:35 am [facility] Medical Records Department [address] [place] [address] Anesthesia Postop Eval I 04/23/25845 MR#: [id number] Acct: [id number] Name: LILLIE HOLLAND Rep #:[id number] : 1975 49 From: Jesse Gore PCP: LINA Mckeon Status:REG SDC Y Race: C Location: [place] [address] Anesthesia: Postop Eval I Current Vital Signs [...] completed: Yes 04/23/25845 <Electronically signed by Jesse Gore > Date _ Jesse Gómez Signature: Date CC: ~ Signed [facility] Work Phone: Evaluation note* Diagnosis Onset Date Resolution Status COPD (chronic obstructive pulmonary disease) chronic Nicotine dependence, cigarettes, uncomplicated chronic [facility] Work Phone: Evaluation note* Diagnosis Onset Date Resolution Status COPD (chronic obstructive pulmonary disease) chronic Nicotine dependence, cigarettes, uncomplicated chronic Fibromyalgia acute Dyspnea chronic [facility] Work Phone: Evaluation note* Diagnosis Onset Date Resolution Status Dyspnea chronic Fibromyalgia chronic COPD (chronic obstructive pulmonary disease) chronic Dyspnea chronic Fibromyalgia chronic Nicotine dependence, cigarettes, uncomplicated chronic [facility] Work Phone: Evaluation note* Diagnosis Encounter for gynecological examination (general) (routine) without abnormal findings- Primary Hot flashes Symptomatic menopausal or female climacteric states Encounter for screening mammogram for malignant neoplasm of breast Other screening mammogram [facility] Diagnosis Unintended weight gain- Primary Abnormal weight gain OAB (overactive bladder) Hypertonicity of bladder Forgetfulness Other general symptoms Hot flashes Symptomatic menopausal or female climacteric states Screening cholesterol level Screening for lipoid disorders Screening for diabetes mellitus Screening for metabolic disorder Encounter for vitamin deficiency screening Screening for other and unspecified endocrine, nutritional, metabolic, and immunity disorders [facility] Diagnosis Menopausal symptoms- Primary Symptomatic menopausal or female climacteric states OAB (overactive bladder) Hypertonicity of bladder documented in this encounter [facility] Discharge instructionsAmbulatory Orders* Cardiology Location: None [facility] Work Phone: Reason for referral (narrative)No reason for referral information availableWGerman Hospital Work Phone: Chief Complaint and Reason [...] No January 10, 2019 8:12am Power of Automation Qtp Tester No January 10 9 8:12am Advance Directive Response Recorded Date/ Time Living Will No January 10, 2019 9:12am Power of Automation Qtp Tester No January 10 9 9:12am Advance Directive Response Recorded Date/ Time Living Will No January 10, 2019 9:12am Do you have a Healthcare Power of Automation Qtp Tester? No January 10, 2019 9:12am Advance Directive Response Recorded Date/ Time Living Will No January 10, 2019 9:12am Do you have a Healthcare Power of Automation Qtp Tester? No January 10, 2019 9:12am Do you have a Healthcare Power of Automation Qtp Tester? No April 19, 2025 12:09pm Family History [...] Provider, Referring Pro vider Active Ashanti Mejía AMPOULE SEALER, AMPOULE SEALER-C Attending Provider Active Team Status: Active Member Role Status Dates LINA Mckeon Primary Care Provider Active Dr. Fahad Beaver MD Attending Provider Active Team Status: Inactive Member Role Status Dates LINA Mckeon Primary Care Provider Active Ashanti Mejía AMPOULE SEALER, AMPOULE SEALER-C Attending Provider, Referrin g Provider Active Clinical Registered Nurse Relationship Specialty Start Date End Date Carlin Adam [address] [place] [address] Referring Family Medicine 01/31/19 Clinical Registered Nurse Relationship Specialty Start Date End Date Carlin Adam [address] [place] [address] Referring Family Medicine 01/31/19 Team Status: Active Member Role Status Dates LINA Mckeon Primary Care Provider Active Team Status: Inactive Member Role Status Dates LINA Mckeon Primary Care Provider Active S tart: December 11, 2024 End: December 11, 2024 Ashanti Mejía AMPOULE SEALER, AMPOULE SEALER-C Attending Provider Active Start: December 11, 2024 End: December 11, 2024 Ashanti Mejía AMPOULE SEALER, AMPOULE SEALER-C Referring Provider Active Start: December 11, 2024 End: December 11, 2024 Team Status: Inactive Member Role Status Dates LINA Mckeon Primary Care Provider Active S tart: December 18, 2024 End: December 18, 2024 Ashanti Mejía AMPOULE SEALER, AMPOULE SEALER-C Attending Provider Active Start: December 18, 2024 End: December 18, 2024 Ashanti Mejía AMPOULE SEALER, AMPOULE SEALER-C Referring Provider Active Start: December 18, 2024 End: December 18, 2024 Team Status: Inactive Member Role Status Dates LINA Mckeon Primary Care Provider Active S tart: March 05, 2025 End: March 05, 2025 LINA Mckeon Referring Provider Active Star t: March 05, 2025 End: March 05, 2025 Ashanti Mejía AMPOULE SEALER, AMPOULE SEALER-C Attending Provider Active Start: March 05, 2025 End: March 05, 2025 Team Status: Inactive Member Role Status Dates LINA Mckeon Primary Care Provider Active S tart: March 23, 2025 End: March 23, 2025 Ashanti Mejía AMPOULE SEALER, AMPOULE SEALER-C Attending Provider Active Start: March 23, 2025 End: March 23, 2025 Ashanti Mejía AMPOULE SEALER, AMPOULE SEALER-C Referring Provider Active Start: March 23, 2025 [...] 2025 End: March 27, 2025 Ashanti Mejía AMPOULE SEALER, AMPOULE SEALER-C Attending Provider Active Start: March 27, 2025 End: March 27, 2025 Ashanti Mejía AMPOULE SEALER, AMPOULE SEALER-C Referring Provider Active Start: March 27, 2025 End: March 27, 2025 Team Status: Inactive Member Role Status Dates Leonora Saldivar PA Primary Care Provider Active S tart: April 01, 2025 End: April 01, 2025 Ashanti Mejía AMPOULE SEALER, AMPOULE SEALER-C Attending Provider Active Start: April 01, 2025 End: April 01, 2025 Ashanti Mejía AMPOULE SEALER, AMPOULE SEALER-C Referring Provider Active Start: April 01, 2025 End: April 01, 2025 Team Status: Active Member Role Status Dates Leonora Saldivar PA Primary Care Provider Active S tart: April 03, 2025 Ashanti Mejía AMPOULE SEALER, AMPOULE SEALER-C Referring Provider Active Start: April 03, 2025 Ashanti Mejía AMPOULE SEALER, AMPOULE SEALER-C Other Provider Active Start: April 03, 2025 Dr. Dangelo Muller DO Attending Provider Active S tart: April 03, 2025 Team Status: Inactive Member Role Status Dates Leonoraasha Saldivar PA Primary Care Provider Active S tart: April 16, 2025 End: April 16, 2025 Leonora Saldivar PA Referring Provider Active Star t: April 16, 2025 End: April 16, 2025 Ashanti Mejía AMPOULE SEALER, AMPOULE SEALER-C Attending Provider Active Start: April 16, 2025 [...] 05, 2025 End: March 05, 2025 Ashanti eMjía AMPOULE SEALER, AMPOULE SEALER-C Attending Provider Active Start: March 05, 2025 End: March 05, 2025 Team Status: Inactive Member Role/Relationship Status Dates LINA Mckeon Primary Care Provider Active S tart: March 23, 2025 End: March 23, 2025 Ashanti Mejía AMPOULE SEALER, AMPOULE SEALER-C Attending Provider Active Start: March 23, 2025 End: March 23, 2025 Ashanti Mejía AMPOULE SEALER, AMPOULE SEALER-C Referring Provider Active Start: March 23, 2025 [...] 2025 End: March 27, 2025 Ashanti Mejía AMPOULE SEALER, AMPOULE SEALER-C Attending Provider Active Start: March 27, 2025 End: March 27, 2025 Ashanti Mejía AMPOULE SEALER, AMPOULE SEALER-C Referring Provider Active Start: March 27, 2025 End: March 27, 2025 Team Status: Inactive Member Role/Relationship Status Dates LINA Mckeon Primary Care Provider Active S tart: April 01, 2025 End: April 01, 2025 Ashanti Mejía AMPOULE SEALER, AMPOULE SEALER-C Attending Provider Active Start: April 01, 2025 End: April 01, 2025 Ashanti Mejía AMPOULE SEALER, AMPOULE SEALER-C Referring Provider Active Start: April 01, 2025 End: April 01, 2025 Team Status: Active Member Role/Relationship Status Dates LINA Mckeon Primary Care Provider Active S tart: April 03, 2025 Ashanti Mejía AMPOULE SEALER, AMPOULE SEALER-C Referring Provider Active Start: April 03, 2025 Ashanti Mejía AMPOULE SEALER, AMPOULE SEALER-C Other Provider Active Start: April 03, 2025 Dr. Dangelo Muller DO Attending Provider Active S tart: April 03, 2025 Team Status: Inactive Member Role/Relationship Status Dates LINA Mckeon Primary Care Provider Active S tart: April 16, 2025 End: April 16, 2025 Leonora Saldivar , PA Referring Provider Active Star t: April 16, 2025 End: April 16, 2025 Ashanti Mejía AMPOULE SEALER, AMPOULE SEALER-C Attending Provider Active Start: April 16, 2025 [...] or prosecute any alcohol or drug abuse patient.[facility] the event this information is protected by the Federal Confidentiality of Alcohol and Drug Abuse Patient Records regulations: The Federal rules restrict any use of the information to criminally investigate or prosecute any alcohol or drug abuse patient.[facility] the event this information is protected by the Federal Confidentiality of Alcohol and Drug Abuse Patient Records regulations: The Federal rules restrict any use of the information to criminally investigate or prosecute any alcohol or drug abuse patient.[facility] the event this information is protected by the Federal Confidentiality of Alcohol and Drug Abuse Patient Records regulations: The Federal rules restrict any use of the information to criminally investigate or prosecute any alcohol or drug abuse patient.[facility] Reason for Visit (unrecogniz ed section and content) Reason Comments Yearly Exam Reason Onset Date Comments Follow Up Weight Management 05/29/2024 Reason Comments Results Reason Comments Follow Up INFORMATION SOURCE (unrecogn ized section and content) DATE CREATED AUTHOR 04/29/2024 [facility] DATE CREATED AUTHOR AUTHOR'S ORGANIZ ATION 06/25/2024 [facility] DATE CREATED AUTHOR AUTHOR'S ORGANIZ ATION 07/25/2024 [facility] DATE CREATED AUTHOR AUTHOR'S ORGANIZ ATION 01/09/[address] [facility] DATE CREATED AUTHOR AUTHOR'S ORGANIZ ATION 06/10/2025 [facility] FOR RECORDS PERTAINING TO PATIENTS [...] BE BASED ON THE PRIMARY CLINICAL RECORDS. [facility]. provides no warranty or guarantee of the accuracy or completeness of information in this document.
--- NOTE | 2025-06-18 07:31 | MRI_ITS ---
PROCEDURE: LOWER EXT JOINT ONLY (ROUTINE) 06/18/2025 REASON FOR EXAM: PLANTAR FASCIITIS, HEEL SPUR, PERONEAL TENDONITIS TECHNIQUE: T1, T2, stir, MRI right ankle: Multiplanar and multisequence images were obtained without IV contrast administration. COMPARISON: COMPARISON : None FINDINGS: Bones: There is normal articulation of the ankle joint. There is focal marrow edema in the inferior calcaneus, and calcaneal spur. No acute fractures or dislocations. Normal marrow signal. The contours of the talar dome are normal. Achilles tendon: Intact Achilles tendon. There is a edema, thickening, and attenuation of the plantar fascia origin, most severe in the medial band, with adjacent soft tissue edema and fluid signal. Tendons: Evaluation of the peroneal tendons demonstrates no evidence of tendinosis or dislocation. There is increased fluid in the posterior tibial tendon sheath without tendon tear or retraction, mild tenosynovitis. The flexor digitorum longus and flexor hallucis longus tendons are intact. The extensor tendons are intact. The extensor retinaculum is intact and normal in signal. Sinus Tarsi: The subtalar joint is intact. Signal in the sinus tarsi is normal. Transverse and cervical ligaments are intact. Ligaments: Lateral syndesmotic ankle ligaments including the anterior and posterior tibiofibular ligaments are intact. The anterior and posterior talofibular ligaments are intact. The medial ankle ligaments including the deltoid and spring ligaments are intact. Effusion: There is no joint effusion. MRI/Lower Ext Joint Only (Routine) IMPRESSION: There is increased fluid in the posterior tibial tendon sheath without tendon t ear or retraction, mild tenosynovitis. There is a edema, thickening, and attenuation of the plantar fascia origin, mos t severe in the medial band, with adjacent soft tissue edema and fluid signal, with plantar fasciitis. Reading Location: [place]
== END | disposition home or self-care (01) ==
LOC: MRI 07:08 → OPMRI 07:28
PROVIDERS: Referring Provider Podiatrist; Visit Provider Podiatrist
DX: M72.2 Plantar fascial fibromatosis (principal); M77.31 Calcaneal spur, right foot; M76.71 Peroneal tendinitis, right leg
CPT/HCPCS: 73721

== ENCOUNTER → 2025-08-06 | Outpatient (CLI) | payer MEDICAID, SELFPAY ==
--- OUTSIDE RECORDS SUMMARY | 2025-07-23 13:54 | XMS RPT_ITS ---
Author Name Auto Generated Organization OH[facility] Care Team Providers Care Rn Surgery Icu Name Role Phone SALDIVAR, LEONORA PAC Admitting Unavailable SALDIVAR, LEONORA PAC Primary Care Unavailable SALDIVAR, LEONORA PAC Consulting Unavailable SALDIVRA, LEONORA PAC Attending Unavailable PROVIDER, UNKNOWN Consulting Unavailable SALDIVAR, LEONORA PAC Primary Care Unavailable SALDIVAR, LEONORA PAC Consulting Unavailable SALDIVAR, LEONORA PAC Attending Unavailable SALDIVAR, LEONORA PAC Admitting Unavailable PROVIDER, UNKNOWN Consulting Unavailable PROBLEMS No Problem Records Found PROCEDURES No Procedure Records Found RESULTS 3D MAMM BILAT SCREEN Observed: 2:27 PM Status: F Source: [place] [id number] Patient: AYLEEN ROMERO Phone#: : 1975 Age: 49 Gender: F Pt. Type: Out Account: [id number] Location: 052 Ordering: LEONORA SALDIVAR Exam Date: 07/23/2025/14:02 Family Phys: Charge Code: 179024 Physician: [place] Order #: [id number] Dose#: PROCEDURE: BILATERAL SCREENING BREAST TOMOSYNTHESIS MAMMOGRAM WITH CAD COMPARISON: [facility], 3D BILAT SCREEN, 05/21/2023, 14:15. [facility], 3D BILAT SCREEN, 05/22/2024, 14:24. INDICATIONS: Screening. BREAST COMPOSITION: The breasts are heterogeneously dense, which may obscure small masses FINDINGS: DIAGNOSTIC CATEGORY 1--NEGATIVE: LEFT BREAST: A metallic marker is present in the superolateral breast. RIGHT BREAST: No significant suspicious finding. No significant change has occurred. LEFT BREAST: No significant suspicious finding. No significant change has occurred. RECOMMENDATIONS: ROUTINE MAMMOGRAM AND CLINICAL EVALUATION IN [...] SYSTEM. Dictated by: Michelle Boston MD on 07/23/2025 at 18:18 Approved by: Michelle Boston MD on 07/23/2025 at 18:26 LIPID PANEL, STANDARD Collected: 2024 10:19 AM Status: F Source: [facility] TYPE CODE TESTS RESULT OUT OF RANGE REFERENCE UNITS LAB [id number] CHOLESTEROL, TOTAL 175 Normal <200 mg/dL LAB [id number] HDL CHOLESTEROL 50 Normal > OR = 50 mg/dL LAB [id number] TRIGLYCERIDES 268 High <150 mg/dL Result Comment: If a non-fasting specimen was collected, consider repeat triglyceride testing on a fasting specimen if clinically indicated. Escobar et al. J. of Clin. Lipidol. 2015;9:129-169. LAB [id number] LDL-CHOLESTEROL 90 Normal mg/dL (calc) Result Comment: Reference ra nge: <100 Desirable range <100 mg/dL for primary prevention; <70 mg/dL for patients with CHD or diabetic patients with > or = 2 CHD risk factors. LDL-C is now calculated using the Linda calculation, which is a validated novel method providing better accuracy than the Friedewald equation in the estimation of LDL-C. Cesario MCCALLUM et al. FREDA. 2013;310(19): 5729-7983 (http://education.[employer].Wirescan/faq/TSY885) LAB [id number] CHOL/HDLC RATIO 3.5 Normal <5.0 (calc) LAB [id number] NON HDL CHOLESTEROL 125 Normal <130 mg/dL (calc) Result Comment: For patients with diabetes plus 1 major ASCVD risk factor, treating to a non-HDL-C goal of <100 mg/dL (LDL-C of <70 mg/dL) is considered a therapeutic option. Performed By: #### [id number], 63 , 7600 #### [facility] [address] [place] [address], [address] [place] [address] Precipitator Supervisor: Zelalem Roach MD COMPREHENSIVE METABOLIC PANEL Collected : 07/02/2025 10:19 AM Status: F Source: [facility] TYPE CODE TESTS RESULT OUT OF RANGE REFERENCE UNITS LAB [id number] GLUCOSE 94 Normal 65-99 mg/dL Result Comment: Fasting reference interval LAB [id number] UREA NITROGEN (BUN) 15 Normal 7-25 mg/dL LAB [id number] CREATININE 0.74 Normal 0.50-1.03 mg/dL LAB [id number] EGFR 99 Normal > OR = 60 mL/min/1 .73m2 LAB [id number] BUN/CREATININE RATIO SEE NOTE: 6- (calc) Result Comment: Not Reported : BUN and Creatinine are within reference range. LAB [id number] SODIUM 139 Normal 135-146 mmol/L LAB [id number] POTASSIUM 3.9 Normal 3.5-5.3 mmol/L LAB [id number] CHLORIDE 104 Normal 98-110 mmol/L LAB [id number] CARBON DIOXIDE 27 Normal 20-32 mmol/L LAB [id number] CALCIUM 8.9 Normal 8.6-10.4 mg/dL LAB [id number] PROTEIN, TOTAL 6.6 Normal 6.1-8.1 g/dL LAB [id number] ALBUMIN 4.2 Normal 3.6-5.1 g/dL LAB [id number] GLOBULIN 2.4 Normal 1.9-3.7 g/dL (calc) LAB [id number] ALBUMIN/GLOBUL IN RATIO 1.8 Normal 1.0-2.5 (calc) LAB [id number] BILIRUBIN, TOTAL 0.3 Normal 0.2-1.2 mg/dL LAB [id number] ALKALINE PHOSPHATASE 101 Normal 37-153 U/L LAB [id number] AST 22 Normal 10-35 U/L LAB [id number] ALT 26 Normal 6-29 U/L Performed By: #### [id number], 63 , 760 #### [facility] [address] [facility], [address] [place] [address] Precipitator Supervisor: Zelalem Roach MD CBC (INCLUDES DIFF/PLT) Collected: 06/09 10:19 AM Status: F Source: [facility] TYPE CODE TESTS RESULT OUT OF RANGE REFERENCE UNITS LAB [id number] WHITE BLOOD CELL COUNT 6.6 Normal 3.8-10.8 Thousand /uL LAB [id number] RED BLOOD CELL COUNT 4.03 Normal 3.80-5.10 Million/ uL LAB [id number] HEMOGLOBIN 11.9 Normal 11.7-15.5 g/dL LAB [id number] HEMATOCRIT 37.5 Normal 35.0-45.0 % LAB [id number] MCV 93.1 Normal 80.0-100.0 fL LAB [id number] MCH 29.5 Normal 27.0-33.0 pg LAB [id number] MCHC 31.7 Low 32.0-36.0 g/dL Result Comment: For adults, a slight decrease in the calculated MCHC value (in the range of 30 to 32 g/dL) is most likely not clinically significant; however, it should be interpreted with caution in correlation with other red cell parameters and the patient's clinical condition. LAB [id number] RDW 14.0 Normal 11.0-15.0 % LAB [id number] PLATELET COUNT 274 Normal 140-400 Thousand /uL LAB [id number] MPV 10.8 Normal 7.5-12.5 fL LAB [id number] ABSOLUTE NEUTROPHILS 4125 Normal 7813-4315 cells/uL LAB [id number] ABSOLUTE LYMPHOCYTES 1940 Normal 850-3900 cells/uL LAB [id number] ABSOLUTE MONOCYTES 383 Normal 200-950 cells/uL LAB [id number] ABSOLUTE EOSINOPHILS 119 Normal 15-500 cells/uL LAB [id number] ABSOLUTE BASOPHILS 33 Normal 0-200 cells/uL LAB [id number] NEUTROPHILS 62.5 Normal % LAB [id number] LYMPHOCYTES 29.4 Normal % LAB [id number] MONOCYTES 5.8 Normal % LAB [id number] EOSINOPHILS 1.8 Normal % LAB [id number] BASOPHILS 0.5 Normal % Performed By: #### [id number], 63 76, 5619 #### [facility] [address], [address] [place] [address] Precipitator Supervisor: Zelalem Roach MD HEMOGLOBIN A1C Collected: 10:19 AM Status: F Source: [facility] TYPE CODE TESTS RESULT OUT OF RANGE REFERENCE UNITS LAB [id number] HEMOGLOBIN A1c 5.7 High <5.7 % Result Comment: For someone without known diabetes, a hemoglobin A1c value between 5.7% and 6.4% is consistent with prediabetes and should be confirmed with a follow-up test. For someone with known diabetes, a value <7% indicates that their diabetes is well controlled. A1c targets should be individualized based on duration of diabetes, age, comorbid conditions, and other considerations. This assay result is consistent with an increased risk of diabetes. Currently, no consensus exists regarding use of hemoglobin A1c for diagnosis of diabetes for children. Performed By: #### 33614, 63 99, 3953 #### [facility] [address] [facility], [address] [place] [address] Precipitator Supervisor: Zelalem Roach MD FOOT COMPLETE RT Observed: 01/08/2025 3:43 PM Status: F Source: [place] [address] Patient: AYLEEN ROMERO Phone#: : 1975 Age: 49 Gender: F Pt. Type: Out Account: [id number] Location: [facility] Ordering: LEONORA SALDIVAR Exam Date: 01/08/2025/12:31 Family Phys: Charge Code: [id number] Physician: [place] Order #: [id number] Dose#: PROCEDURE: X-RAY FOOT RT COMPLETE MIN 3 VIEWS COMPARISON: [facility], , FOOT RT COMPLETE, 08/04/2021, 14:47. INDICATIONS: Right [...] Damaris Moon MD on 01/08/2025 at 15:42 ALLERGIES DATE TYPE / CODE NAME / CODE REACTION SEVERITY SOURCE Miscellaneous Allergy/[id number]([facility]) No Known Allergies Moderate (Severity Modifier) (Qualifier Value) [facility] ENCOUNTERS ADMIT/DISCHARGE ACCOUNT NUMBER ADMITTING ENCOUNTER CLASS LOCATION SOURCE 07/23/2025/ 5 [id number] LEONORA SALDIVAR Ambulatory Building:[facility] 01/08/2025/ 5 [id number] LEONORA SALDIVAR Ambulatory Building:[facility] PAYERS ENCOUNTER GUARANTOR PAYER SUBSCRIBER SOURCE 07/23/2025 AYLEEN YEPEZ: [place], [place] [address]Lhq: () Primary Insurance:[employer] PLAN OUTPATPolicy Number: [id number] Date:Plan Name:XSherri AYLEEN YEPEZ: [id number] [place] [address] [facility] 01/08/2025 AYLEEN YEPEZ: [id number] [place] [address]Wrv: (HP) Primary Insurance:[employer] PLAN OUTPATPolicy Number: [id number] Date:Plan Name:XSherri AYLEEN LUCHO: [id number] [place] [address] [facility]
[2025-08-06 13:27] VITALS: BP 119/88; PULSE 82; RESP 16; TEMP 36.5; O2SAT 98; BMI 32.9
[2025-08-06 13:36] VITALS: BP 114/59; PULSE 79
[2025-08-06] MEDS: 0.9% Saline Lock 10 ML Syringe IV (13:40)
[2025-08-06 13:45] VITALS: BP 108/62; PULSE 74
[2025-08-06] MEDS: Nitroglycerin SL (ED/IMG/CATH) 0.4 MG TABLET SL (13:45)
--- NOTE | 2025-08-06 13:47 | CT_ITS ---
PROCEDURE: LIMITED CHEST CT CARDIAC ONLY 08/06/2025 REASON FOR EXAM: CHEST PAIN, UNSPECIFIED, OTHER FORMS OF DYSPNEA TECHNIQUE: Procedure Code: [id number] Modality: CT Procedure: LIMITED CHEST CT CARDIAC ONLY One or more dose reduction techniques were used (e.g., Automated exposure control, adjustment of the mA and/or kV according to patient size, use of iterative reconstruction technique). RADIATION DOSE SUMMARY: CTDlvol: 57.53 mGy DLP: 914.68 mGycm COMPARISON: Chest CT of 12/11/2024. CT/Limited Chest CT Cardiac Only IMPRESSION: Diffuse fatty infiltration of the liver is seen. Limited imaging of the lungs demonstrates no acute process. No pleural effusion or pneumothorax is seen in visualized areas. No adenopathy is noted. The visualized upper abdomen demonstrates no other significant abnormality. Reading Location: [address]
[2025-08-06 13:55] VITALS: BP 110/65; PULSE 73; RESP 14; O2SAT 99
--- NOTE | 2025-08-06 18:53 | CCTA.WCONT ---
CCTA w/Cont Coronary Arteries Date of Study:: 08/06/25 Dyspnea on exertion Coronary Calcium Scoring: High-resolution Computed Tomographic imaging of the chest was performed on [08/06/2025], with particular attention paid to the coronary arteries. Intravenous contrast agent was administered per protocol and images reconstructed and displayed. LEFT MAIN CORONARY ARTERY: Arises from the left main coronary cusp no significant atherosclerosis is noted [] LEFT ANTERIOR DESCENDING CORONARY ARTERY: Arises from the left main coronary artery and courses towards the apex of the ventricle with no significant atherosclerotic plaque present or obstructive lesions noted. [] LEFT CIRCUMFLEX CORONARY ARTERY: Nondominant vessel with no significant atherosclerotic plaquing noted and no obstructive lesions noted. [] RIGHT CORONARY ARTERY: Dominant right coronary artery with no atherosclerotic plaquing or obstructive lesions noted. [] THORACIC AORTA: [] PULMONARY ARTERY: [] LEFT ATRIUM/APPENDAGE: [] MITRAL VALVE: [] AORTIC VALVE: [] LEFT VENTRICLE: [] CORONARY CALCIUM SCORE: Not done [] Calcium Scoring Interpretation: Different methods to categorize the overall amount of coronary plaque. Overall amount CAC SIS Visual of coronary plaque P1 Mild -100 <2 1-2 vessels with mild amount of plaque P2 Moderate 101-300 3-4 1-2 vessels with moderate amount, 3 vessels with mild amount of plaque P3 Severe 301-999 5-7 3 vessels with moderate amount, 1 vessel with severe amount of plaque P4 Extensive >1000 >8 2-3 vessels with severe amount of plaque Conclusion: No coronary atherosclerosis or stenosis present.
== END | disposition home or self-care (01) ==
LOC: CT 12:56
PROVIDERS: Referring Provider Student in an Organized Health Care Education/Training Program; Visit Provider Student in an Organized Health Care Education/Training Program
DX: R06.09 Other forms of dyspnea (principal); R07.9 Chest pain, unspecified
CPT/HCPCS: 75574; 76380; 96374; Q9967; A4216

== ENCOUNTER → 2025-08-20 | Outpatient (CLI) | payer MEDICAID, SELFPAY | END | disposition home or self-care (01) | LOC: SL 19:57 | PROVIDERS: Referring Provider Nurse Practitioner Acute Care; Visit Provider Nurse Practitioner Acute Care | DX: G47.33 Obstructive sleep apnea (adult) (pediatric) (principal) | CPT/HCPCS: 95811 ==

== ENCOUNTER 2025-09-14 05:49 | Day surgery (SDC) | payer MEDICAID, SELFPAY ==
--- NOTE | 2025-09-07 12:41 | PAT.ANESEVAL ---
Pre-Assessment Diagnosis/Proposed Procedure Planned Operative Procedure(s): (R) Plantar Fasciotomy of the right foot with resection of an infracalcaneal spur. 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 When Was Last Pacemaker Check QUESTION #4 FULL TEXT: You/Your Family Experience fever (hyperthermia) with Anesthesia Last Oral Intake Last Oral intake: Last Oral Intake NPO since Meds taken in AM with sips of water? 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 - preschool director: PONV - preschool director Female Yes 09/07/25 10:32 HX of Motion Sickness Yes 09/07/25 10:32 HX of N/V After Surgery No 09/07/25 10:32 Non-Smoker Yes 09/07/25 10:32 Duration of Surgery greater Yes 09/07/25 10:32 than 60 minutes Number of Risk Factors 4 09/07/25 10:32 PONV Score Severe Risk 09/07/25 10:32 Height & Weight Height & Weight: Anesthesia: Height & Weight Height 5 ft 3 in 08/13/25 08:30 Respiratory Assessment Respiratory Assessment - preschool director: Respiratory Tract Infection Hx - preschool director Hx Respiratory Tract Infection No 09/07/25 10:32 STOP Sleep Apnea STOP Sleep Apnea - preschool director: STOP Sleep Apnea - preschool director Hx Hypertension No 09/07/25 10:32 Hx Sleep Apnea No 09/07/25 10:32 CPAP BIPAP Do you snore loudly (louder No 09/07/25 10:32 than talking or can be heard Do you often feel tired/ No 09/07/25 10:32 fatigued/ sleepy during daytime? Has anyone observed you stop No 09/07/25 10:32 breathing during sleep? STOP Results Negative 09/07/25 10:32 QUESTION #5 FULL TEXT : Do you snore loudly (louder than talking or can be heard through closed doors)? 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 Specify any problems Hx of Preganancy in last 3 N/A 09/07/25 10:32 Months Nurse Filling Out Transfusion NBUCHER 09/07/25 10:32 & Questions: Date: 09/07/25 09/07/25 10:32 Time: 10:34 09/07/25 10:32 Patient unable to answer at this time (ie. confused, unrespo /Reproduction History /Reproductive History - preschool director: /Reproductive Hx- preschool director Hx Now No 09/07/25 10:32 Gestational Age (in weeks): EDC: Hx Hx Para Hx Section SAB No 09/07/25 10:32 PFSH Medical History Wears glasses Post-menopausal Marijuana use Alcohol use Gastric reflux Sleep apnea Former smoker Smoker Shortness of breath on exertion Hoarseness Chronic cough History of pain when walking History of echocardiogram Cardiology follow-up encounter Chest pain Acid reflux Abdominal pain Fatigue Anxiety Depression Heart murmur Abnormal ultrasound of breast Abnormal mammogram of left breast Sweets syndrome Tobacco dependence Moderate persistent asthma Bronchitis COPD (chronic obstructive pulmonary disease) Vasculitis Cough Home Medications Medication Instructions Recorded Last Taken Type omeprazole 20 mg capsule,delayed 20 mg PO DAILY 09/15/23 Unknown History release inhalational spacing device (Space #1 ea 11/03/23 Unknown History Chamber) multivitamin with minerals-folic 1 tab PO DAILY 01/03/24 Unknown History acid 0.4 mg tablet albuterol sulfate 90 mcg/actuation 2 puff inhalation Q4H PRN 03/05/25 Unknown Rx aerosol inhaler shortness of breath or wheezing #8.5 grams Marijuana Medical Card .Route 04/16/25 Unknown History cetirizine 10 mg tablet (24Hour 10 mg PO DAILY PRN allergy symptoms 04/19/25 Unknown History Allergy) cholecalciferol (vitamin D3) 250 250 mcg PO QWEEK 05/10/25 Unknown History mcg (10,000 unit) capsule vitamin B complex 1 tab PO QDAY 05/30/25 Unknown History amitriptyline 10 mg tablet 10 mg PO QHS 08/06/25 Unknown History fluticasone fur. 200 mcg-umeclid 1 inh inhalation DAILY #60 ea 08/06/25 Unknown Rx 62.5 mcg-vilant 25 mcg inhalat.powder (Trelegy Ellipta) nystatin 100,000 unit/mL oral 5 ml mucous membrane TID PRN COPD 09/07/25 Unknown History suspension Allergy/AdvReac Type Severity Reaction Status Date / Time No Known Allergies Allergy Verified 09/07/25 10:30 Family History Mother Arthritis Diabetes Thyroid disorder Aunt Breast cancer Grandmother Hypertension Diabetes Grandmother CVA (cerebral vascular accident) Surgical History Hx of wisdom tooth extraction History of esophagogastroduodenoscopy (EGD) Hx of colonoscopy delivery delivered H/O: hysterectomy Social History Smoking Status: Current some day smoker tobacco type: cigarettes Tobacco: How many years used: 31 Electronic Cigarette Use: not used second hand exposure: Yes alcohol intake: current alcohol intake frequency: a few times a month substance use type: does not use caffeine: Yes frequency: does not exercise Audit: Pertinent Findings Pertinent Findings EKG Perinent findings: 05/30/2025. Normal sinus rhythm. Possible lateral infarct, age undetermined. Echo (EF%) pertinent findings: 03/23/2025. Normal size function EF 55%. Consult pertinent findings: Cardiology 08/13/2025. Chest pain. Now resolved. Coronary CTA 08/06/2025 demonstrated no coronary stenosis present. At this time it does not appear symptoms are predominantly cardiac. Recommend follow-up with primary care physician and pulmonology. Recommendation Anesthesia Recommendation Anesthesia recommendation: OPTIMIZED for anesthesia
--- NOTE | 2025-09-12 15:47 | PAT.ANESEVAL ---
Pre-Assessment Diagnosis/Proposed Procedure Planned Operative Procedure(s): (R) Plantar Fasciotomy of the right foot with resection of an infracalcaneal spur. 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 When Was Last Pacemaker Check QUESTION #4 FULL TEXT: You/Your Family Experience fever (hyperthermia) with Anesthesia Last Oral Intake Last Oral intake: Last Oral Intake NPO since Meds taken in AM with sips of water? 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 Female Yes 09/07/25 10:32 HX of Motion Sickness Yes 09/07/25 10:32 HX of N/V After Surgery No 09/07/25 10:32 Non-Smoker Yes 09/07/25 10:32 Duration of Surgery greater Yes 09/07/25 10:32 than 60 minutes Number of Risk Factors 4 09/07/25 10:32 PONV Score Severe Risk 09/07/25 10:32 Height & Weight Height & Weight: Anesthesia: Height & Weight Height 5 ft 3 in 08/13/25 08:30 Respiratory Assessment Respiratory Assessment - pattern and chain maker: Respiratory Tract Infection Hx - pattern and chain maker Hx Respiratory Tract Infection No 09/07/25 10:32 STOP Sleep Apnea STOP Sleep Apnea - pattern and chain maker: STOP Sleep Apnea - pattern and chain maker Hx Hypertension No 09/07/25 10:32 Hx Sleep Apnea No 09/07/25 10:32 CPAP BIPAP Do you snore loudly (louder No 09/07/25 10:32 than talking or can be heard Do you often feel tired/ No 09/07/25 10:32 fatigued/ sleepy during daytime? Has anyone observed you stop No 09/07/25 10:32 breathing during sleep? STOP Results Negative 09/07/25 10:32 QUESTION #5 FULL TEXT : Do you snore loudly (louder than talking or can be heard through closed doors)? 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 Specify any problems Hx of Preganancy in last 3 N/A 09/07/25 10:32 Months Nurse Filling Out Transfusion [facility]BU[facility] 09/07/25 10:32 & Questions: Date: 09/07/25 09/07/25 10:32 Time: 10:34 09/07/25 10:32 Patient unable to answer at this time (ie. 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: /Reproductive Hx- pattern and chain maker Hx Now No 09/07/25 10:32 Gestational Age (in weeks): EDC: Hx Hx Para Hx Section SAB No 09/07/25 10:32 Does the father of the baby or his family experience fever w Father of the baby Malignant Hypertension history comment [facility] Medical History Wears glasses Post-menopausal Marijuana use Alcohol use Gastric reflux Sleep apnea Former smoker Smoker Shortness of breath on exertion Hoarseness Chronic cough History of pain when walking History of echocardiogram Cardiology follow-up encounter Chest pain Acid reflux Abdominal pain Fatigue Anxiety Depression Heart murmur Abnormal ultrasound of breast Abnormal mammogram of left breast Sweets syndrome Tobacco dependence Moderate persistent asthma Bronchitis COPD (chronic obstructive pulmonary disease) Vasculitis Cough Home Medications Medication Instructions Recorded Last Taken Type omeprazole 20 mg capsule,delayed 20 mg PO DAILY 09/15/23 Unknown History release inhalational spacing device (Space #1 ea 11/03/23 Unknown History Chamber) multivitamin with minerals-folic 1 tab PO DAILY 01/03/24 Unknown History acid 0.4 mg tablet albuterol sulfate 90 mcg/actuation 2 puff inhalation Q4H PRN 03/05/25 Unknown Rx aerosol inhaler shortness of breath or wheezing #8.5 grams Marijuana Medical Card .Route 04/16/25 Unknown History cetirizine 10 mg tablet (24Hour 10 mg PO DAILY PRN allergy symptoms 04/19/25 Unknown History Allergy) cholecalciferol (vitamin D3) 250 250 mcg PO QWEEK 05/10/25 Unknown History mcg (10,000 unit) capsule vitamin B complex 1 tab PO QDAY 05/30/25 Unknown History amitriptyline 10 mg tablet 10 mg PO QHS 08/06/25 Unknown History fluticasone fur. 200 mcg-umeclid 1 inh inhalation DAILY #60 ea 08/06/25 Unknown Rx 62.5 mcg-vilant 25 mcg inhalat.powder (Trelegy Ellipta) nystatin 100,000 unit/mL oral 5 ml mucous membrane TID PRN COPD 09/07/25 Unknown History suspension Allergy/AdvReac Type Severity Reaction Status Date / Time No Known Allergies Allergy Verified 09/07/25 10:30 Family History Mother Arthritis Diabetes Thyroid disorder Aunt Breast cancer Grandmother Hypertension Diabetes Grandmother CVA (cerebral vascular accident) Surgical History Hx of wisdom tooth extraction History of esophagogastroduodenoscopy (EGD) Hx of colonoscopy delivery delivered H/O: hysterectomy Social History Smoking Status: Current some day smoker tobacco type: cigarettes Tobacco: How many years used: 31 Electronic Cigarette Use: not used second hand exposure: Yes alcohol intake: current alcohol intake frequency: a few times a month substance use type: does not use caffeine: Yes frequency: does not exercise Audit: Pertinent Findings HISTORY of Pertinent Findings History of Pertinent Findings: EKG Pertinent Findings EKG Perinent findings 05/30/2025. Normal sinus 09/07/25 12:43 rhythm. Possible lateral infarct, age undetermined. Echo Pertinent Findings Echo (EF%) pertinent findings 03/23/2025. Normal size 09/07/25 12:43 function EF 55%. Consult Pertinent Findings Consult pertinent findings Cardiology 08/13/2025. Chest 09/07/25 12:43 pain. Now resolved. Coronary CTA 08/06/2025 demonstrated no coronary stenosis present. At this time it does not appear symptoms are predominantly cardiac. Recommend follow- up with primary care physician and pulmonology. Recommendation Anesthesia Recommendation Anesthesia recommendation: F/U recommended (Patient needs to see PCP and receive potassium supplementation; will need BMP recheck prior to surgery ) Follow up Details BMP Recommendation: Yes
--- NOTE | 2025-09-13 11:31 | PAT.ANE_ITS ---
Pre-Assessment Diagnosis/Proposed Procedure Planned Operative Procedure(s): (R) Plantar Fasciotomy of the right foot with resection of an infracalcaneal spur. 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 When Was Last Pacemaker Check QUESTION #4 FULL TEXT: You/Your Family Experience fever (hyperthermia) with Anesthesia Last Oral Intake Last Oral intake: Last Oral Intake NPO since Meds taken in AM with sips of water? 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 Female Yes 09/07/25 10:32 HX of Motion Sickness Yes 09/07/25 10:32 HX of N/V After Surgery No 09/07/25 10:32 Non-Smoker Yes 09/07/25 10:32 Duration of Surgery greater Yes 09/07/25 10:32 than 60 minutes Number of Risk Factors 4 09/07/25 10:32 PONV Score Severe Risk 09/07/25 10:32 Height & Weight Height & Weight: Anesthesia: Height & Weight Height 5 ft 3 in 08/13/25 08:30 Respiratory Assessment Respiratory Assessment - grinder machine knife setter: Respiratory Tract Infection Hx - grinder machine knife setter Hx Respiratory Tract Infection No 09/07/25 10:32 STOP Sleep Apnea STOP Sleep Apnea - grinder machine knife setter: STOP Sleep Apnea - grinder machine knife setter Hx Hypertension No 09/07/25 10:32 Hx Sleep Apnea No 09/07/25 10:32 CPAP BIPAP Do you snore loudly (louder No 09/07/25 10:32 than talking or can be heard Do you often feel tired/ No 09/07/25 10:32 fatigued/ sleepy during daytime? Has anyone observed you stop No 09/07/25 10:32 breathing during sleep? STOP Results Negative 09/07/25 10:32 QUESTION #5 FULL TEXT : Do you snore loudly (louder than talking or can be heard through closed doors)? 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 Specify any problems Hx of Preganancy in last 3 N/A 09/07/25 10:32 Months Nurse Filling Out Transfusion [facility] 09/07/25 10:32 & Questions: Date: 09/07/25 09/07/25 10:32 Time: 10:34 09/07/25 10:32 Patient unable to answer at this time (ie. 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: /Reproductive Hx- grinder machine knife setter Hx Now No 09/07/25 10:32 Gestational Age (in weeks): EDC: Hx Hx Para Hx Section SAB No 09/07/25 10:32 Does the father of the baby or his family experience fever w Father of the baby Malignant Hypertension history comment Active Medications Active Medications: Current Medications Generic Name Dose Route Start Last Admin Trade Name Freq PRN Reason Stop Dose Admin Cefazolin Sodium 2 gm/ Sodium 110 mls @ 200 mls/hr 09/14/25 07:30 Chloride IV 09/14/25 08:02 INTRAOP ONE PFS Medical History Wears glasses Post-menopausal Marijuana use Alcohol use Gastric reflux Sleep apnea Former smoker Smoker Shortness of breath on exertion Hoarseness Chronic cough History of pain when walking History of echocardiogram Cardiology follow-up encounter Chest pain Acid reflux Abdominal pain Fatigue Anxiety Depression Heart murmur Abnormal ultrasound of breast Abnormal mammogram of left breast Sweets syndrome Tobacco dependence Moderate persistent asthma Bronchitis COPD (chronic obstructive pulmonary disease) Vasculitis Cough Home Medications Medication Instructions Recorded Last Taken Type omeprazole 20 mg capsule,delayed 20 mg PO DAILY Unknown History release inhalational spacing device (Space #1 ea 11/03/23 Unkn own History Chamber) multivitamin with minerals-folic 1 tab PO DAILY Unknown History acid 0.4 mg tablet albuterol sulfate 90 mcg/actuation 2 puff inhalation Q 4H PRN 03/05/25 Unknown Rx aerosol inhaler shortness of breath or wheez ing #8.5 grams Marijuana Medical Card .Route 04/16/25 Unknown Hist ory cetirizine 10 mg tablet (24Hour 10 mg PO DAILY PRN all ergy symptoms 04/19/25 Unknown History Allergy) cholecalciferol (vitamin D3) 250 250 mcg PO QWEEK 01/30 Unknown History mcg (10,000 unit) capsule vitamin B complex 1 tab PO QDAY 05/30/25 Unkno wn History amitriptyline 10 mg tablet 10 mg PO QHS 08/06/25 Unkno wn History fluticasone fur. 200 mcg-umeclid 1 inh inhalation SHAR Y #60 ea 08/06/25 Unknown Rx 62.5 mcg-vilant 25 mcg inhalat.powder (Trelegy Ellipta) nystatin 100,000 unit/mL oral 5 ml mucous membrane TID PRN COPD 09/07/25 Unknown History suspension Allergy/AdvReac Type Severity Reaction Status Date / Time No Known Allergies Allergy Verified 09/07/25 10:30 Family History Mother Arthritis Diabetes Thyroid disorder Aunt Breast cancer Grandmother Hypertension Diabetes Grandmother CVA (cerebral vascular accident) Surgical History Hx of wisdom tooth extraction History of esophagogastroduodenoscopy (EGD) Hx of colonoscopy delivery delivered H/O: hysterectomy Social History Smoking Status: Current some day smoker tobacco type: cigarettes Tobacco: How many years used: 31 Electronic Cigarette Use: not used second hand exposure: Yes alcohol intake: current alcohol intake frequency: a few times a month substance use type: does not use caffeine: Yes frequency: does not exercise Audit: Pertinent Findings HISTORY of Pertinent Findings History of Pertinent Findings: EKG Pertinent Findings EKG Perinent findings 05/30/2025. Normal sinus 09/07/25 12:43 rhythm. Possible lateral infarct, age undetermined. Echo Pertinent Findings Echo (EF%) pertinent findings 03/23/2025. Normal size 09/07/25 12:43 function EF 55%. Consult Pertinent Findings Consult pertinent findings Cardiology 08/13/2025. Chest 09/07/25 12:43 pain. Now resolved. Coronary CTA 08/06/2025 demonstrated no coronary stenosis present. At this time it does not appear symptoms are predominantly cardiac. Recommend follow- up with primary care physician and pulmonology. Recommendation Anesthesia Recommendation Anesthesia recommendation: OPTIMIZED for anesthesia (Thank you I see they did start Potassium. Must have missed it initially. )
[2025-09-14] VITALS (9 sets, daily range): BP systolic 91–112; BP diastolic 53–78; PULSE 63–82; RESP 16–18; TEMP 36.1–36.6; O2SAT 95–97; BMI 33.5
--- OUTSIDE RECORDS SUMMARY | 2025-09-14 05:53 | XMS RPT_ITS | CCD ---
Author Organization [facility] Care Team Providers Care Block Machine Operator Name Role Phone Dr. Carlin Adam Primary Care Provider Dr. Carlin Adam Referring Provider Dr. Dangelo Muller Attending Provider LINA Saldivar Primary Care Provider Dr. Dangelo Muller Referring Provider Dr. Dangelo Muller Other Provider Leonora Saldivar PA-C Unavailable Yuri (Dr. Zina Morejon MD Unavailable [phone] Medicine [facility], Pulmonary Unavailable Dr. Emerita Styles MD Unavailable Counseling Provider Unavailable Unavailable Rheumatolgy Provider Unavailable Unavailable Seferino SEQUEIRA, Dr. Hood Goodman Unavailable Dr. Carlin Robles MD, V Unavailable Fusing Furnace Loader/Gynecology Prov. Unavailable Un available Cardiology Provider Unavailable Unavailable Sangita SEQUEIRA, Dr. Rowe Unavailable [phone] [place], Occupational Therapy Unavailable Physical Therapy Provider Unavailable Juan Miguel Blanchard MD, Barbra Guerrero Unavailable Frida Downs LPN Unavailable Juan Muller MD Unavailable Bridget Smith MA Unavailable Unavailable Gogoi (scribe), Hemanta Unavailable Unavaila eveline Garcias LPN, Naav Unavailable Unavailable Carlin dAam MD Unavailable Tenisha PA-C, Luke E Unavailable Shiloh Steven C Unavailable Unavailable Tenisha RN, Agustina L Unavailable Unavail able Chirag ROSAS, Elizabeth Unavailable Unavailable Param EXTERMINATOR, Daniella Unavailable Unavailable King RUBINA-C, Rubio Segovia Unavailable [phone] Eloy HICKMAN, Radha Gerardo Unavailable Unavailhumaira Rossi RN, Shyla Unavailable Seven PA-C, Virgen Melton Unavailable Austyn EXTERMINATOR, Leonor Unavailable Unavailabl e Sannarosey EXTERMINATOR, Lady Unavailable Unavailable Unavailable Unavailable LINA Saldivar Leonora Referring Provider Kym CYLINDER SANDER OPERATOR, CYLINDER SANDER OPERATOR-C Ashanti Attending Provider Dr. Fahad Beaver Attending Provider Miranda SEQUEIRA, Dr. Morin Unavailable [phone] LINA Saldivar Leonora Primary Care Provider Dr. Dangelo Muller Attending Provider Dr. Dangelo Muller Referring Provider Dr. Dangelo Muller Other Provider LINA Saldivar Leonora Referring Provider Kym CESPEDES, RUBINA-C Ashanti Attending Provider Dr. Fahad Beaver Attending [...] LAURITA Attending Unavailable SHAHEEN, LAURITA Attending Unavailable [facility] Unavailable Podiatry Provider Unavailable Unavailable Bill MILLS, Leonora Primary Care Provider Kym CYLINDER SANDER OPERATOR-C, Ashanti Attending Provider Mejía CYLINDER SANDER OPERATOR-C, Ashanti Referring Provider Saldivar PA, Leonora Referring Provider [phone] Simon Del Rosario MD Attending Provider Mejía CYLINDER SANDER OPERATOR-C, Ashanti Other Provider [phone] Dangelo Muller DO Attending Provider Saldivar PA, Leonora Primary Care Provider [phone] Mejía CYLINDER SANDER OPERATOR-C, Ashanti Attending Provider Mejía CYLINDER SANDER OPERATOR-C, Ashanti Referring Provider Saldivar PA, Leonora Primary Care Provider Mejía CYLINDER SANDER OPERATOR-C, Ashanti Attending Provider Mejía CYLINDER SANDER OPERATOR-C, Ashanti Referring Provider Dr. Maddy Amador MD Attending Provider [phone] Marjorie SEQUEIRA, Dr. Castañeda Other Provider [phone] [facility], . Unavailable Jensen SEQUEIRA, Dr. Felder Attending Provider Carin SEQUEIRA, Dr. Montes Referring Provider [phone] Jensen SEQUEIRA, Dr. Felder Attending Provider Koby MCCORMICK, Dr. Dixon Attending Provider Koby MCCORMICK, Dr. Dixon Referring Provider Dr. Emerita Styles MD Unavailable Oralia Mccray Unavailable Unavailable Saldivar PA, Leonora Primary Care Physician Saldivar PA, Leonora Referring Provider Mejía CYLINDER SANDER OPERATOR-C, Ashanti Attending Physician Dr. Maddy Amador MD Attending Physician Marjorie SEQUEIRA, Dr. Castañeda Nurse Practitioner [phone] Dr. Emerita Styles MD Attending Physician Carin SEQUEIRA, Dr. Montes Attending Physician Koby MCCORMICK, Dr. Dixon Attending Physician [phone] Narinderiter PA, Scotty Attending Physician Demiter PA, Scotty Referring Provider Scotty Jacobsen Nurse Practitioner Mejía CYLINDER SANDER OPERATOR, Ashanti Referring Unavailable Mejía CYLINDER SANDER OPERATOR, Ashanti Attending Unavailable Saldivar, Leonora Primary Care Unavailable Carin, Simon Referring Unavailable Carin, Simon Attending Unavailable Saldivar, Leonora Primary Care Unavailable Mejía CYLINDER SANDER OPERATOR, Ashanti Attending Unavailable Mejía CYLINDER SANDER OPERATOR, Ashanti Referring Unavailable Saldivar, Leonora Primary Care Unavailable Carin, Simon Referring Unavailable Carin, [place] Attending Unavailable Saldivar, Leonora Primary Care Unavailable Mejía CYLINDER SANDER OPERATOR, Ashanti Attending Unavailable Saldivar, Leonora Primary Care Unavailable Mejía CYLINDER SANDER OPERATOR, Ashanti Referring Unavailable Mejía CYLINDER SANDER OPERATOR, Ashanti Attending Unavailable Saldivar, Leonora Primary Care Unavailable Mejía CYLINDER SANDER OPERATOR, Ashanti Referring Unavailable Demiter, Scotty Referring Unavailable Demiter, Scotty Attending Unavailable Saldivar, Leonora Primary Care Unavailable Zack Whalen Referring Unavailable Zack Whalen Attending Unavailable Saldivar, Leonora Primary Care Unavailable Mejía CYLINDER SANDER OPERATOR, Ashanti Referring Unavailable Saldivar, Leonora Primary Care Unavailable Mejía CYLINDER SANDER OPERATOR, Ashanti Attending Unavailable Demiter, Scotty Referring Unavailable Demiter, Scotty Consulting Unavailable Carin, [place] Attending Unavailable Saldivar, Leonora Primary Care Unavailable BrownDangelo Attending Unavailable Saldivar, Leonora Primary Care Unavailable Mejía CYLINDER SANDER OPERATOR, Ashanti Referring Unavailable Mejía CYLINDER SANDER OPERATOR, Ashanti Consulting Unavailable Saldivar, Leonora Primary Care Unavailable Carin, Simon Attending Unavailable BrownAranzak Attending Unavailable Robotham, Maddy Attending Unavailable Robotham, Maddy Consulting Unavailable Saldivar, Leonora Referring Unavailable Saldivar, Leonora Primary Care Unavailable Saldivar, Leonora Primary Care Unavailable Saldivar, Leonora Referring Unavailable Mejía CYLINDER SANDER OPERATOR, Ashanti Attending Unavailable Saldivar, Leonora Referring Unavailable Carin, [place] Attending Unavailable Saldivar, Leonora Primary Care Unavailable Mejía CYLINDER SANDER OPERATOR, Ashanti Referring Unavailable Mejía CYLINDER SANDER OPERATOR, Ashanti Attending Unavailable Saldivar, Leonora Primary Care Unavailable Demiter, Scotty Attending Unavailable Saldivar, Leonora Referring Unavailable Saldivar, Leonora Primary Care Unavailable Saldivar, Leonora Referring Unavailable Mejía CYLINDER SANDER OPERATOR, Ashanti Attending Unavailable Saldivar, Leonora Primary Care Unavailable Saldivar, Leonora Referring Unavailable Kym CYLINDER SANDER OPERATOR, Ashanti Attending Unavailable Saldivar, Leonora Primary Care Unavailable Zack Whalen Referring Unavailable Zack Whalen Attending Unavailable Saldivar, Leonora Primary Care Unavailable Maddy Amador Attending Unavailable Saldivar, Leonora Referring Unavailable Saldivar, Leonora Primary Care Unavailable SALDIVAR, LEONORA PAC Attending Unavailable SALDIVAR, LEONORA PAC Admitting Unavailable SALDIVAR, LEONORA PAC Primary Care Unavailable SALDIVAR, LEONORA PAC Consulting Unavailable PROVIDER, UNKNOWN Consulting Unavailable SALDIVAR, LEONORA PAC Attending Unavailable SALDIVAR, LEONORA PAC Admitting Unavailable SALDIVAR, LEONORA PAC Primary Care Unavailable SALDIVAR, LEONORA PAC Consulting Unavailable PROVIDER, UNKNOWN Consulting Unavailable SALDIVAR, LEONORA PAC Attending Unavailable SALDIVAR, LEONORA PAC Admitting Unavailable SALDIVAR, LEONORA PAC Primary Care Unavailable SALDIVAR, LEONORA PAC Consulting Unavailable PROVIDER, UNKNOWN Consulting Unavailable Allergies Allergy Classification Reported Allergen(s) Allergy Type Date of Onset Reaction(s) Facility (5 sources) Sulfamethoxazole / Trimethoprim; Translations: [SULFAMETHOXAZOLE-TRI METHOPRIM] Drug Allergy 8 GI Upset [facility] Medications Current Medications Medication Drug Class(es) Dates Sig (Normalized) Sig (Original) Acetaminophen (4 sources) acetaminophen (T YLENOL ORAL) Take by mouth every 6 hours as needed. Active acetaminophen (T YLENOL ORAL) Take by mouth every 6 hours as needed. 0 Active [id number] 200 actuat albuterol 0.09 mg/actuat metered dose inhaler (20 sources) beta2-Adrenergic Agonist Start: 09-15-2023 End: 03-05-2025 Albuterol Sulfate 90 mcg/actuation HFA aerosol inhaler Active 2 NMA INHALATION Q4H as needed for shortness of breath or wheezing 8.5 March 05, 2025 1:12pm administer with spacer Complies with drug therapy Start: 09-15-2023 take 1 puff(s) by in [...] above: rarely needs Medication taken as needed. amitriptyline hydrochloride 10 mg oral tablet (3 sources) Tricyclic Antidepressant Start: 08-06-20 take 1 tablet by mouth at bedtime Amitriptyline 10 mg tablet Active 10 mg PO AT BEDTIME August 06, 2025 12:00am Complies with drug therapy Calcium Carbonate / vitamin D3 (4 sources) calcium carbonate/vitamin D3 (CALCIUM 600 + D ORAL) Take by mouth. Active calcium carbonat e/vitamin D3 (CALCIUM 600 + D ORAL) Take by mouth. 0 Active cetirizine hydrochloride 10 mg oral tablet (7 sources) Histamine-1 Receptor Antagonist Start: 04-19-2025 take 1 tablet by mouth once daily as needed Cetirizine (24hour Allergy) 10 mg tablet Active 10 mg PO DAILY as needed for allergy symptoms April 19, 2025 12:00am Complies with drug therapy cholecalciferol 0.25 mg oral capsule (19 sources) Vitamin D Start: 05-10-2025 take 1 capsule by mouth every week Cholecalciferol (Vitamin D3) 250 mcg (10,000 unit) capsule Active 250 ug PO EVERY WEEK May 10, 2025 12:00am Complies with drug therapy Start: 09-15-2023 End: 04-19-2025 take 1 capsule by mouth every week Cholecalciferol (Vitamin D3) 250 mcg (10,000 unit) capsule Discontinued 250 ug PO EVERY WEEK September 15, 2023 1:00am April 19, 2025 11:58am Start: 09-15-2023 End: 04-19-2025 take 1 capsule by mouth every week Cholecalciferol (Vitamin D3) 250 mcg (10,000 unit) capsule Discontinued 250 ug PO EVERY WEEK September 15, 2023 1:00am April 19, 2025 11:58am Start: 09-15-2023 take 1 capsule by [facility] every week Cholecalciferol (Vitamin D3) 250 mcg [...] 12:00am docusate sodium 50 mg / sennosides, long-term 8.6 mg oral tablet (20 sources) Stool Softener-S timulant Laxative 8.6 mg-50 mg tablet ; (8.6-50 mg) Dalhsplcgdp-Otecihdpz-Hwvuyl e r (20 sources) Start: 08-06-2025 Start: 08-06-2025 Fluticasone-Um eclidin-Vilanter (Trelegy Ellipta) 200-62.5-25 mcg blister with device Active 1 NMA INHALATION DAILY 60 August 06, 2025 12:00am Asthma-chronic obstructive pulmonary disease overlap syndrome Other specified chronic obstructive pulmonary disease Complies with drug therapy Start: 02-12-2025 End: 04-10-2025 Gfusmylzjol-Zylseslkn-Eetlts er (Trelegy Ellipta) 200-62.5-25 mcg blister with device Discontinued 1 NMA INHALATION DAILY 60 February 12, 2025 2:00pm April 10, 2025 10:56am Start: 02-12-2025 End: 04-10-2025 Buxshsjtpit-Kdkbsbtvd-Iavbkt er (Trelegy Ellipta) 200-62.5-25 mcg blister with device Discontinued 1 NMA INHALATION DAILY February 12, 2025 2:00pm April 10, 2025 10:56am Start: 02-12-2025 Fluticasone-Um eclidin-Vilanter (Trelegy Ellipta) 200-62.5-25 mcg blister with device Active 1 NMA INHALATION DAILY February 12, 2025 2:00pm Start: 05-29-2024 End: 02-12-2025 Mcfounymrkj-Mgqvnjxjy-Mkljqd er (Trelegy Ellipta) 200-62.5-25 mcg blister with device Discontinued 1 NMA INHALATION DAILY 60 6 May 29, 2024 12:34pm February 12, 2025 2:00pm Start: 05-29-2024 End: 02-12-2025 Zwzwgmhuwib-Xzvzfgbsn-Dzniec er (Trelegy Ellipta) 200-62.5-25 mcg blister with device Discontinued 1 NMA INHALATION DAILY 60 May 29, 2024 12:34pm February 12, 2025 2:00pm Start: 01-03-2024 End: 05-29-2024 Pplnpeeldta-Mglroppqr-Jzcdje er (Trelegy Ellipta) 200-62.5-25 mcg blister with device Discontinued 1 NMA INHALATION DAILY 60 6 January 03, 2024 1:00am May 29, 2024 12:34pm Start: 01-03-2024 End: 05-29-2024 Ngdrekqfnaf-Vnnnvpouv-Vihamq er (Trelegy Ellipta) 200-62.5-25 mcg blister with device Discontinued 1 NMA INHALATION DAILY 60 January 03, 2024 1:00am May 29, 2024 12:34pm Start: 01-03-2024 Fluticasone-Um eclidin-Vilanter (Trelegy Ellipta) 200-62.5-25 mcg blister with device Active 1 INH INHALATION DAILY 60 January 03, 2024 1:00am Ibuprofen (4 sources) Nonsteroidal Anti-inflammatory Drug IBUPROFEN ORAL Take by mouth as needed. Active IBUPROFEN ORAL T marisol by mouth as needed. 0 Active Inhalational Spacing Device (Space Chamber) spacer (12 sources) Start: 11-03-2023 Inhalational S pacing Device (Space Chamber) spacer Active NMA .ROUTE .MEDSUPPLY November 03, 2023 1:00am As directed Start: 11-03-2023 Inhalational S pacing Device (Space Chamber) spacer Active EACH .ROUTE .MEDSUPPLY November 03, 2023 1:00am As directed Start: 11-03-2023 Inhalational S pacing Device (Space Chamber) spacer Active EACH .ROUTE .MEDSUPPLY November 03, 2023 12:00am As directed Marijuana Medical Card (8 sources) Start: 04-16-2025 Marijuana Medi norbert Card Active .Route April 16, 2025 12:00am As ordered Complies with drug therapy Start: 04-16-2025 Start: 04-16-2025 Marijuana Medi norbert Card Active .Route April 16, 2025 12:00am As ordered metoprolol tartrate 50 mg oral tablet (3 sources) beta-Adrenergic Liz Start: 06-29-2025 take 1 tablet by mouth once Metoprolol Tartrate 50 mg tablet Active 50 mg PO ONCE 1 0 June 29, 2025 12:00am 1 hour prior to Coronary CTA Complies with drug therapy Multivit With Min-Folic Acid (1 source) Start: 01-03-2024 take 1 tablet by mouth once daily Multivit With Min-Folic Acid Active TABLET PO DAILY January 03, 2024 1:00am Multivit With Min-Folic Acid 0.4 mg tablet (10 sources) Start: 01-03-2024 Start: 01-03-2024 Multivit With Min-Folic Acid 0.4 mg tablet Active 1 {tbl} PO DAILY January 03, 2024 1:00am Complies with drug therapy Start: 01-03-2024 Multivit With Min-Folic Acid 0.4 [...] Take by mouth once daily. 0 Active nystatin [id number] unt/ml oral suspension (3 sources) Polyene Antifungal Start: 08-06-2025 Nystatin 10 0,000 unit/mL suspension Active 5 mL MUCOUS MEM THREE TIMES A DAY 250 1 August 06, 2025 12:00am Asthma-chronic obstructive pulmonary disease overlap syndrome Other specified chronic obstructive pulmonary disease swish and swallow 5 cc three times per day for 10 days Complies with drug therapy omeprazole 20 mg delayed release oral capsule [...] 02-Nov-2023 Start: 09-15-2023 take 1 capsule by [facility] once daily Omeprazole 20 mg capsule,delayed release(DR/EC) Active 20 mg PO DAILY September 15, 2023 1:00am Complies with drug therapy Trelegy Ellipta 200 mcg-62.5 mcg-25 mcg powder for inhalation (18 sources) Trelegy Ellipta 200 mcg-62.5 mcg-25 mcg [...] 0 03/16/2024 Active Vitamin B Complex tablet (6 sources) Start: 05-30-2025 Start: 05-30-2025 Vitamin B Comp sumanth tablet Active 1 {tbl} PO daily May 30, 2025 12:00am Complies with drug therapy Start: 05-30-2025 Vitamin B Comp sumanth tablet Active 1 {tbl} PO daily May 30, 2025 12:00am Completed/Discontinued Medications Medication Drug Class(es) Dates [...] {Tablet} Refills: 0 Ordered: 20-Mar-2014 MD Barbra Blanchadr Start: 20-Mar-2014 End: 23-Mar-2014 Status: Inactive Comments: start first Start: 03-20-2014 End: 10-09-2015 take 1 tablet by mouth once daily WELLBUTRIN XL, 300MG (Oral Tablet Extended Release 24 Hour) ; 1 (one) Tablet ER 24HR daily for 0 days Quantity: 30 {Tablet} Refills: 2 Ordered: 09-Oct-2015 DEEPKIA Zaman Start: 20-Mar-2014 End: 09-Oct-2015 Status: Inactive [...] 30 {Capsule} Refills: 0 Ordered: 13-Jul-2024 ALISON Smithanna Start: 27-Aug-2023 End: 13-Jul-2024 Status: Inactive docusate [...] Active doxylamine succinate 25 mg oral tablet (13 sources) Start: 01-10-2019 End: 09-15-2023 Doxylamine Succinate 25 MG tablet Discontinued 25 mg PO NEEDED as needed for Insomnia January 10, 2019 1:00am September 15, 2023 11:39am DULoxetine 60 mg delayed release oral capsule (20 sources) Serotonin and Norepinephrine Reuptake Inhibitor Start: 07-31-2024 End: 04-16-2025 take 1 capsule by mouth once daily Duloxetine 60 mg capsule,delayed release(DR/EC) Discontinued 60 mg PO daily August 28, 2024 12:00am April 16, 2025 11:21am Start: 01-04-2024 DULoxetine 60 mg capsule,delayed release ; 1 (one) capsule daily for 0 days Quantity: 30 {Capsule} Refills: 2 Ordered: 28-Mar-2024 BENOIT Saldivar Start: 28-Mar-2024 Start: 09-15-2023 End: 08-28-2024 take 1 capsule by mouth once daily Duloxetine 30 mg capsule,delayed release(DR/EC) Discontinued 30 mg PO DAILY September 15, 2023 1:00am August 28, 2024 2:18pm estradiol 2 mg oral tablet (20 sources) [...] 12:00am August 01, 2018 10:47am Fluticasone Propion-Salmeterol (13 sources) Corticosteroid, beta2-Adrenergic Agonist Start: 08-26-2018 End: 08-26-2018 Fluticasone Propion-Salmeterol (Advair Hfa) 230-21 mcg/actuation HFA aerosol inhaler Discontinued 2 NMA INHALATION TWICE A DAY 10 13August 26, 2018 12:00am August 26, 2018 2:17pm [...] 25, 2018 11:00pm August 26, 2018 1:17pm Ogbqdyxowls-Gzffkonpr-Saivue er (8 sources) Anticholinergic, Corticosteroid, beta2-Adrenergic Agonist Start: 04-10-2025 End: 08-06-2025 Pazfgplnytk-Gsvqbquzp-Jgkvxx er (Trelegy Ellipta) 100-62.5-25 mcg blister with device Discontinued 1 NMA INHALATION daily 60 April 10, 2025 12:00am August 06, 2025 10:44am Chronic obstructive pulmonary disease, unspecified administer at [...] at approximately the same time(s) each day Fluticasone Furoate-Vilanterol (20 sources) Corticosteroid, beta2-Adrenergic Agonist Start: 09-02-2018 End: [...] 1 INH INHALATION daily September 02, 2018 2:November 22, 2018 2:50pm after inhalation, rinse mouth with water and spit out; do not swallow Start: 09-02-2018 End: 11-22-2018 Fluticasone Furoate-Vilanter ol (Breo Ellipta) 200-25 mcg/dose blister with device Discontinued 1 INH INHALATION daily September 02, 2018 1:pm November 22, 2018 1:50pm after inhalation, rinse [...] device Discontinued 1 INH INHALATION daily August 25, 2018 11:00pm September 02, 2018 1:19pm after inhalation, rinse mouth with water and spit out; do not swallow gabapentin 100 mg oral capsule (20 sources) [...] may cause drowsiness Multivitamin 1 EACH tablet (10 sources) Start: 04-20-2017 End: 08-01-2018 Multivitamin 1 [...] mg) oxyCODONE hydrochloride 5 mg oral tablet (13 sources) Opioid Agonist Start: 06-07-2017 End: 08-01-2018 [...] 2025 11:23am progesterone 100 mg oral capsule (13 sources) Progesterone Start: 05-29-20 End: 05-29-20 take [...] 1 {Packet} Refills: 0 Ordered: 11-Jun-2023 ALISON eBard Start: 11-Jun-2023 Start: 06-11-2023 Chantix Starti ng [...] B Complex (Complex B-100) tablet extended release (7 sources) Start: 04-19-2025 End: 05-10-2025 Vitamin B [...] by mouth once daily. 0 03/27/2024 Discontinued zolpidem tartrate 5 mg oral tablet (20 sources) gamma-Aminobuty amara Acid-ergic Agonist Start: 02-28-2024 End: 08-06-2025 take 1 tablet by mouth at bedtime as needed for sleep Zolpidem 5 mg tablet Discontinued 5 mg PO AT BEDTIME as needed for sleep August 28, 2024 12:00am August 06, 2025 10:24am Problems Active Problems Problem Classification Problem Date Documented Date Episodic/Chronic Abdominal pain (13 sources) Abdominal pain; Translations: [Unspecified abdominal pain] 12-29-2018 Episodic Acute bronchitis (20 sources) Acute bronchitis 08-04-2021 Episodic Administrative/socia l admission (20 sources) Patient encounter status; Translations: [Tobacco abuse counseling] 08-04-2021 Episodic Alcohol-related disorders (20 sources) Alcohol abuse; Translations: [Alcohol abuse, uncomplicated] 08-09-2023 Chronic Anxiety disorders (13 sources) Anxiety; Translations: [Anxiety disorder, unspecified] 12-29-2018 Chronic Asthma (20 sources) Moderate persistent asthma; Translations: [Moderate persistent asthma, uncomplicated] Onset: 03-27-2024 12-29-2018 Chronic Comment on above: FEV1 76% Chronic obstructive pulmonary disease and bronchiectasis (20 sources) Chronic obstructive lung disease; Translations: [Chronic obstructive pulmonary disease, unspecified] Onset: 09-15-2023 12-29-2018 Chronic Chronic obstructive pulmonary disease and bronchiectasis (13 sources) Bronchitis; Translations: [Bronchitis, not specified as acute or chronic] 12-29-2018 Episodic Chronic obstructive pulmonary disease and bronchiectasis (1 source) Chronic obstructive pulmonary disease and bronchiectasis; Translations: [Other specified chronic obstructive pulmonary disease] Onset: 08-06-2025 Conditions associated with dizziness or vertigo (20 sources) Vertigo; Translations: [Dizziness and giddiness] 02-02-2025 Episodic Esophageal disorders (17 sources) Gastroesophageal reflux disease; Translations: [Gastro-esophageal reflux disease without esophagitis] Onset: 03-27-2024 12-29-2018 Chronic Fluid and electrolyte disorders (20 sources) Hyperkalemia; Translations: [Hyperkalemia] 08-04-2021 Episodic Genitourinary symptoms and ill-defined conditions (20 sources) Incontinence; Translations: [Unspecified urinary incontinence] 08-09-2023 Chronic Immunizations and screening for infectious disease (20 sources) Immunization due; Translations: [Encounter for immunization] 07-22-2023 Episodic Menopausal disorders (1 source) Menopausal symptom; [...] (20 sources) Drug indicated; Translations: [Other intermediate (current) drug therapy] 08-04-2021 Episodic Other and ill-defined heart disease (20 sources) Diastolic dysfunction; Translations: [Other ill-defined heart diseases] 04-16-2025 Chronic Comment on above: Stage I Other and ill-defined heart disease (1 source) Other ill-defined heart diseases; Translations: [Other ill-defined heart diseases] Onset: 05-30-2025 Chronic Other and unspecified benign neoplasm (14 sources) History of polyp of colon; Translations: [History of colonic polyps] 04-23-2025 Episodic Other circulatory disease (20 sources) Vasculitis; Translations: [Arteritis, unspecified] 12-29-2018 Chronic Other complications of ; puerperium affecting management of mother (13 sources) Deliveries by ; Translations: [Encounter for delivery without indication] 12-29-2018 Episodic Comment on above: X2 Other connective tissue disease (20 sources) Fibromyalgia; Translations: [Fibromyalgia] 08-27-2023 Episodic Other connective tissue disease (20 sources) Pain in right foot; Translations: [Pain in right foot] 08-09-2023 Episodic Other connective tissue disease (20 sources) Pain in right heel; Translations: [Pain in right foot] 01-08-2025 Episodic Other connective tissue disease (1 source) Plantar fascial fibromatosis; Translations: [Plantar fascial fibromatosis] Onset: 06-22-2025 Episodic Other diseases of bladder and urethra (20 sources) Overactive bladder; Translations: [Overactive bladder] 08-09-2023 Chronic Other ear and sense organ disorders (8 sources) Pain of ear structure; Translations: [Otalgia, [...] dyspnea; Translations: [Other forms of dyspnea] Onset: 08-17-2025 Episodic Other lower respiratory disease (1 source) Cough; Translations: [Cough] Onset: 08-06-2025 Episodic Other nervous system disorders (20 sources) Disturbance of skin sensation 08-04-2021 Episodic Other nutritional; endocrine; and metabolic disorders (20 sources) Obesity; Translations: [Obesity, unspecified] 03-05-2025 Chronic [...] infection, unspecified] 02-02-2025 Episodic Residual codes; unclassified (17 sources) Daytime hypersomnia; Translations: [Hypersomnia, unspecified] 03-05-2025 Chronic Residual codes; unclassified (19 sources) Obstructive sleep apnea syndrome; Translations: [Obstructive sleep apnea (adult) (pediatric)] 04-16-2025 Chronic Comment on above: AHI 10.2 Residual codes; unclassified (1 source) Obstructive sleep apnea (adult) (pediatric); Translations: [Obstructive sleep apnea (adult) (pediatric)] Onset: 09-03-2025 Chronic Residual codes; unclassified (1 source) Hypersomnia, unspecified; Translations: [Hypersomnia, unspecified] Onset: 03-05-2025 Chronic Residual codes; unclassified (13 sources) Past history of procedure; Translations: [Other specified postprocedural states] 01-23-2019 Episodic Comment on above: 01/11/19 Residual codes; unclassified (17 sources) History of colonoscopy; Translations: [Other specified [...] her pain.). Note for Multiple chronic conditions follow-up": Patient feels that her toes have improved some with terbinafine, but thinks she may need a second round of treatment.Patient recently saw the digital photographic printer she was referred to and was given [...] coughing, jumping, or sneezing.Patient is interested in "having my hormones tested". She is S/P total hysterectomy, but is [...] sleeps 6 hours per night. Note for "Well adult female": 3.6.19 colonoscopy polyps 7.15.24 mammo normalPt said [...] sleeps 6 hours per night. Note for "Well adult female": 3.6.19 colonoscopy polyps - repeat in 3-5 [...] time. She is currently seeing a physical ther for management of her fatigue and fibromyalgia. [...] breath with talking. She is currently seeing plow holder and has upcoming appointment in February to discuss results of CT scan and PFT.), weight has increased (16lbs since CARLOS), in general mood has improved (patient states that she is frustrated with the "extreme fatigue". Zolpidem helps some.), sleep patterns have improved (feels sleep is better but she still wakes up with fibromyalgia pain. She is being switched from gabapentin to Lyrica.) and headaches have been noticed occasionally. Note for Multiple chronic conditions follow-up": She is having pain of the right heel. By the end of the day, she will have pain that goes up her leg and has trouble walking. Been having the heel pain for the past few months and the pain is getting a lot worse. The pain is constant. 03-03-2025 Unclassified (11 sources) I51.89 - Other ill-defined heart diseases Unclassified (1 source) Personal history of colon polyps, unspecified; Translations: [Personal history of colon polyps, unspecified] Onset: 05-07-2025 Unclassified (1 source) Obesity, class 1; Translations: [Obesity, class 1] Onset: 04-16-2025 Viral infection (20 sources) Herpes zoster; Translations: [Zoster without complications] 08-04-2021 Episodic Past or Other Problems Problem Classification Problem Date Documented Date Episodic/Chronic Heart valve disorders (18 sources) Heart murmur; Translations: [Cardiac murmur, unspecified] Onset: 03-27-2024 12-29-2018 Episodic Malaise and fatigue (20 sources) Fatigue; Translations: [Other fatigue] Onset: 05-30-2025 12-29-2018 Episodic Other complications of (4 sources) Supervision of other high risk pregnancies, unspecified trimester; Translations: [Supervision of other high-risk ] Onset: 06-28-2007 Resolved: 03-27-2024 03-27-2024 Episodic Other connective tissue disease (5 sources) Fibromyalgia; Translations: [Myalgia and myositis, unspecified] Onset: 08-26-2023 11-03-2023 Episodic Other connective tissue disease (1 source) [...] sleeps 6 hours per night. Note for "Well adult female": Patient's presents for her physical today with [...] depression screen is positive, but she states "I don't feel depressed. I only feel this bad because I am so tired." She does state that she has been "emotional' and feels apple. 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 She reports that she has been having pain. She reports "pin in my bones, not my joints."Patient is a current smoker and is interested [...] has been relieved by acetaminophen. Note for "Foot pain": Denies any trauma 08-04-2021 Unclassified (20 sources) Follow-up - Patient is here today for a 2 month follow-up. 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 Patient was seen at [facility] for a rash on her thighs [...] ESR done 11/29/2018. 01-26-2019 Unclassified (20 sources) "Full Workup" - Patient is here today to have a "full workup" for her Sweet syndrome. She was seen here for a rash previously and [facility] They diagnosed her with Sweet's Syndrome [...] been associated itching and pain. Note for "Rash": Patient states she was given a cream before that was ineffective. 08-26-2018 Unclassified (20 sources) Follow up consultation - The patient is here to follow-up after a consult (seen on office 05/27/2018 for cough, vasculitis. here for one week follow. chest xray done). Note for Consultation follow-up": rash is gone from last week. no [...] up sleep) hours per night. Note for "Well adult female": Would like to discuss today having pain [...] recurrent ear infections. Note for Upper respiratory infection": Has history of bronchitis. Has been out of her inhalers. + wheezing and SOB. 10-09-2015 Unclassified (20 sources) [ADDITIONAL REASON] spot below eye - Patient also stated that she just woke up 3 days ago and she has a spot under her left eye; worsening. Red and mcintyre. Did have some burning prior to bumps appearing. 10-09-2015 Unclassified (14 sources) spot below eye - Patient also stated that she just woke up 3 days ago and she has a spot under her left eye; worsening. Red and mcintyre. Did have some burning prior to bumps appearing. 10-09-2015 Unclassified (14 sources) [ADDITIONAL REASON] Cold Symptoms - Symptoms [...] recurrent ear infections. Note for Upper respiratory infection": Has history of bronchitis. Has been out of her inhalers. + wheezing and SOB. 10-09-2015 Unclassified (17 sources) Follow up for multiple chronic conditions [...] breath with talking. She is currently seeing plow holder and has upcoming appointment in February to discuss results of CT scan and PFT.), weight has increased (16lbs since CARLOS), in general mood has improved (patient states that she is frustrated with the "extreme fatigue". Zolpidem helps some.), sleep patterns have improved (feels sleep is better but she still wakes up with fibromyalgia pain. She is being switched from gabapentin to Lyrica.) and headaches have been noticed occasionally. Note for "Multiple chronic conditions follow-up": She is having pain of the right [...] to have a colonoscopy completed. 01-08-2025 Unclassified (14 sources) Cold Symptoms - Symptoms include nasal [...] Test Name Value Interpretation Reference Range Facility CBC + DIFFon 09-11-2025 Baso # 0.03 x10EE3/UL Normal 0.00 - 0.10 [facility] Comment on above: Performed By: #### 2 29530 #### [place] [address] Basophils/100 WBC (Bld) 0.4 % Normal 0.0 - 2.0 [facility] Comment on above: Performed By: #### 2 47325 #### [facility],[address] [place] [address] CBC + DIFF Normal [facility] Comment on above: Result Comment: CBC- COMPLETE BLOOD COUNT Performed By: #### 2 83278 #### [facility],[address] [place] [address] EO # 0.08 x10EE3/UL Normal 0.00 - 0.50 [facility] Comment on above: Performed By: #### 2 84651 #### [place] [id number] Eosinophils/100 WBC (Bld) 1.0 % Normal 0.0 - 7.0 [facility] Comment on above: Performed By: #### 2 35944 #### [facility],[address] [place] [address] Erythrocyte distribution width (RBC) [Ratio] 13.4 % Normal 12.0 - 15.6 [facility] Comment on above: Performed By: #### 2 37623 #### [facility],[address] [place] [address] Hematocrit (Bld) [Volume fraction] 38.2 % Normal 34.0 - 46.0 [facility] Comment on above: Performed By: #### 2 45211 #### [facility],[address] [place] [address] Hemoglobin (Bld) [Mass/Vol] 12.9 g/dL Normal 12.0 - 16.0 [facility] Comment on above: Performed By: #### 2 52792 #### [facility],[address] [place] [address]65 Lymph # 1.93 x10EE3/UL Normal 0.80 - 2.80 [facility] Comment on above: Performed By: #### 2 24348 #### [facility],[address] [place], [place] [id number] Lymphocytes/100 WBC (Bld) 24.1 % Normal 20.0 - 45.0 [facility] Comment on above: Performed By: #### 2 08332 #### [facility],[address] [place] [address]2739 MANUAL DIFF N/A Normal [facility] Comment on above: Performed By: #### 2 08757 #### [facility],[address] [place] [address] 97595 MCH (RBC) [Entitic mass] 29 pg Normal 27 - 33 [facility] Comment on above: Performed By: #### 2 29384 #### [facility],[address] [place] [address] MCHC 34 X10 3 Normal 32 - 36 [facility] Comment on above: Performed By: #### 2 86102 #### [facility],[address] [place], [place] [id number] MCV (RBC) [Entitic vol] 85 fL Normal 80 - 99 [facility] Comment on above: Performed By: #### 2 86157 #### [facility],[address] [place] [address] [place] # 0.43 x10EE3/UL Normal 0.20 - 1.00 [facility] Comment on above: Performed By: #### 2 10067 #### [facility],[address] [place] [address] MONOS % 5.4 % Normal 0.0 - 10.0 [facility] Comment on above: Performed By: #### 2 08045 #### [facility],[address] [place] [address] Morphology Gordon (Bld) [Interp] N/A Normal [facility] Comment on above: Performed By: #### 2 00658 #### [facility],[address] [place] [address] Neut # 5.55 x10EE3/UL Normal 1.50 - 7.10 [facility] Comment on above: Performed By: #### 2 06343 #### [facility],[address] [place] [address] Neutrophils/100 WBC (Bld) 69.2 % Normal 46.0 - 76.0 [facility] Comment on above: Performed By: #### 2 92287 #### [facility],[address] [place] [address] PLATELET 286 x10EE3/UL Normal 150 - 450 [facility] Comment on above: Performed By: #### 2 84754 #### [facility],[address] [place] [address]281 Platelet mean volume (Bld) [Entitic vol] 8.8 fL Normal 6.6 - 10.5 [facility] Comment on above: Result Comment: AUTO MATED DIFFERENTIAL Performed By: #### 2 05790 #### [facility],[address] [place] [address] 01002 RBC 4.49 x 10EE6/UL Normal 4.10 - 5.30 [facility] Comment on above: Performed By: #### 2 08033 #### [facility],[address] [place] [address] 84894 WBC 8.0 x 10EE3/UL Normal 4.5 - 10.8 [facility] Comment on above: Performed By: #### 2 71170 #### [facility],[address] [place] [address] 73245 CMP with eGFRon 09-11-2025 AGE 49 years Normal [facility] Comment on above: Performed By: #### 2 86704 #### [facility],[address] [place] [address] 38426 Albumin [Mass/Vol] 3.7 g/dL Normal 3.4 - 5.0 [facility] Comment on above: Performed By: #### 2 43631 #### [facility],[address] [place] [address] 47413 Albumin/Globulin [Mass ratio] 1.0 {ratio} Normal 0.9 - 1.6 [facility] Comment on above: Performed By: #### 2 43428 #### [facility],[address] [place] [address] 12545 ALK PHOS 116 U/L Normal 46 - 116 [facility] Comment on above: Performed By: #### 2 83224 #### [facility],[address] [place] [address] 47389 ALT [Catalytic activity/Vol] 49 U/L Normal 16 - 63 [facility] Comment on above: Performed By: #### 2 14574 #### [facility],[address] [place] [address] 87961 Anion gap [Moles/Vol] 11 mmol/L Normal 10 - 20 [facility] Comment on above: Performed By: #### 2 87526 #### [facility],[address] [place] [address] 14562 AST [Catalytic activity/Vol] 29 U/L Normal 13 - 39 [facility] Comment on above: Performed By: #### 2 04483 #### [facility],[address] [place] [address] 53412 B/C RATIO 13 ratio Normal 0 - 30 [facility] Comment on above: Performed By: #### 2 41583 #### [facility],[address] [place] [address] 34178 Bilirubin [Mass/Vol] 0.6 mg/dL Normal 0.2 - 1.0 [facility] Comment on above: Performed By: #### 2 01126 #### [facility],[address] [place] [address] 87275 Calcium [Mass/Vol] 9.6 mg/dL Normal 8.5 - 10.1 [facility] Comment on above: Performed By: #### 2 76295 #### [facility],[address] [place] [address] 16569 Chloride [Moles/Vol] 100 mmol/L Normal 98 - 107 [facility] Comment on above: Performed By: #### 2 48558 #### [facility],[address] [place] [address] 97912 CMP with eGFR Normal [facility] Comment on above: Result Comment: COMP REHENSIVE METABOLIC PANEL Performed By: #### 2 41374 #### [facility],[address] [place] [address] 90205 CO2 [Moles/Vol] 29.7 mmol/L Normal 21.0 - 32.0 [facility] Comment on above: Performed By: #### 2 62015 #### [facility],[address] [place] [address] 06810 Creatinine [Mass/Vol] 0.68 mg/dL Normal 0.55 - 1.02 [facility] Comment on above: Performed By: #### 2 95360 #### [facility],[address] [place] [address] 02510 GFR/1.73 sq M.predicted among non-blacks MDRD (S/P/Bld) [Vol rate/Area] mL/min/{1.73_m2} Normal 60 - 999 [facility] Comment on above: Performed By: #### 2 88292 #### [facility],[address] [place] [address] 14848 Result Comment: ACCO RDING TO THE NATIONAL KIDNEY DISEASE EDUCATION PROGRAM(NKDE), A NORMAL eGFR IS A VALUE GREATER THAN OR EQUAL TO 60 ML/MIN/1.73 SQ METERS. CHRONIC KIDNEY DISEASE: <60mL/MIN/1.73 SQ METERS KIDNEY FAILURE: <15mL/MIN/1.73 SQ METERS THIS TEST SHOULD ONLY BE USED FOR PATIENTS 18 YEARS OF AGE AND OLDER. Globulin (S) [Mass/Vol] 3.6 g/dL Normal 1.5 - 3.8 [facility] Comment on above: Performed By: #### 2 35707 #### [facility],[address] [place] [address] 60162 Glucose [Mass/Vol] 96 mg/dL Normal 74 - 106 [facility] Comment on above: Performed By: #### 2 26960 #### [facility],[address] [place] [address] 30300 Potassium [Moles/Vol] 3.0 mmol/L Low 3.5 - 5.1 [facility] Comment on above: Performed By: #### 2 74598 #### [facility],[address] [place] [address] 19176 Protein [Mass/Vol] 7.3 g/dL Normal 6.4 - 8.2 [facility] Comment on above: Performed By: #### 2 79839 #### [facility],[address] [place] [address] 05300 Sodium [Moles/Vol] 138 mmol/L Normal 136 - 145 [facility] Comment on above: Performed By: #### 2 79470 #### [facility],[address] [place] [address] 12791 Urea nitrogen [Mass/Vol] 9 mg/dL Normal 7 - 18 [facility] Comment on above: Performed By: #### 2 71826 #### [facility],[address] [place] [address] 09961 MR/Florina 09-07-2025 MR/[facility] Medical Records Department [address] [place] [id number] PAT - Anesthesia 09/07/25 1241 MR#: [id number] Acct: [id number] Name: LILLIE HOLLAND Rep #: [id number] : 1975 49 From: Hans Blair MD PCP: LINA Mckeon Status:PRE [facility] Y Race: C Location: [facility] Pre-Assessment Diagnosis/Proposed Procedure Planned Operative Procedure(s): (R) Plantar Fasciotomy of the right foot with resection of an infracalcaneal spur. 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 When Was Last Pacemaker Check QUESTION #4 FULL TEXT: You/Your Family Experience fever (hyperthermia) with Anesthesia Last Oral Intake Last Oral intake: Last Oral Intake NPO since Meds taken in AM with sips of water? 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 - locker room manager: PONV - locker room manager Female Yes 09/07/25 10:32 HX of Motion Sickness Yes 09/07/25 10:32 HX of N/V After Surgery No 09/07/25 10:32 Non-Smoker Yes 09/07/25 10:32 Duration of Surgery greater Yes 09/07/25 10:32 than 60 minutes Number of Risk Factors 4 09/07/25 10:32 PONV Score Severe Risk 09/07/25 10:32 Height Weight Height Weight: Anesthesia: Height Weight Height 5 ft 3 in 08/13/25 08:30 Respiratory Assessment Respiratory Assessment - locker room manager: Respiratory Tract Infection Hx - locker room manager Hx Respiratory Tract Infection No 09/07/25 10:32 STOP Sleep Apnea STOP Sleep Apnea - locker room manager: STOP Sleep Apnea - locker room manager Hx Hypertension No 09/07/25 10:32 Hx Sleep Apnea No 09/07/25 10:32 CPAP BIPAP Do you snore loudly (louder No 09/07/25 10:32 than talking or can be heard Do you often feel tired/ No 09/07/25 10:32 fatigued/ sleepy during daytime? Has anyone observed you stop No 09/07/25 10:32 breathing during sleep? STOP Results Negative 09/07/25 10:32 QUESTION #5 FULL TEXT : Do you snore loudly (louder than talking or can be heard through closed doors)? Tobacco Use History Tobacco Use History - locker room manager: Tobacco Use History - locker room manager Tobacco Use Smoking Status Current some day smoker 09/07/25 10:32 Hx Tobacco Use Yes 09/07/25 10:32 Years Smoking Packs Smoked per Day Smoking Cessation Date was Yes - quit smoking within 15 09/07/25 10:32 within the last 15 years years Hx Smoking Cessation Date 11/08/24 09/07/25 10:32 Hx Smoking Cessation Counseling Hematologic Medial History Hematologic Hx - locker room manager: Hematologic Medical Hx - nail feeder Hx of Blood Transfusion No 09/07/25 10:32 Hx of Transfusion in last 3 No 09/07/25 10:32 Months Date of Last Transfusion (if within last 3 months) Ever experience any problems No 09/07/25 10:32 with transfusion(s)? Specify any problems Hx of Preganancy in last 3 N/A 09/07/25 10:32 Months Nurse Filling Out Transfusion NBUCHER 09/07/25 10:32 Questions: Date: 09/07/25 09/07/25 10:32 Time: 10:34 09/07/25 10:32 Patient unable to answer at this time (ie. confused, unrespo /Reproduction History /Reproductive History - locker room manager: /Reproductive Hx- locker room manager Hx Now No 09/07/25 10:32 Gestational Age (in weeks): EDC: Hx Hx Para Hx Section SAB No 09/07/25 10:32 [facility] Medical History Wears glasses Post-menopausal Marijuana use [...] 09/15/23 Unknown Hi story release inhalational spacing (more content not included)... Normal [facility] Cardiology Visit Reporton Cardiology Visit Report [facility] [address] [place] [address]. [address] [place] [address] OFFICE VISIT Date of Service: 08/13/25 MR#: [id number] Acct: [id number] Name: LILLIE HOLLAND Rep #: [id number] : 1975 Provider: LINA Faulkner Age/Sex: 49/F Location: [facility] Status: Signed HPI HPI History of Present Illness Details: Lillie Holland is a 49-year-old female who presents to the office today for follow-up for monitoring her cardiovascular health. She established with our office in May 2025 as a new patient with a history of tobacco use and with concerns of shortness of breath. She reported noticing shortness of breath with minimal exertion. An echocardiogram demonstrated preserved ejection fraction and stage I diastolic dysfunction with no right sided pressures obtained, no valvular abnormalities. Previous CT scans demonstrated mild hyperinflation. EKG completed at that time demonstrated sinus rhythm with a rate of 64 bpm and possible lateral infarct. She was recommended to be evaluated via stress test; however, insurance company did not approve this test. She underwent coronary angiography CTA 08/06/2025 that demonstrated no coronary atherosclerosis or stenosis present. Upon presentation today, patient reports her fatigue and weakness remains and is unchanged since last seen. She reports chronic fatigue described as feeling exhausted after her shower and needing to take a nap. Her fatigue is associated with SOB as well. She reports SOB with minimal activity. She notices dizziness when going from seated position to standing and with activity. She denies "room spinning" sensation. She reports significant "bone pain" with activity. She experiences occasional nausea noticed with lightheadedness/dizzy spells. Further ROS below. 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 Mechanical Required: No Accompanied by: Self Is patient in pain?: No Allergies No Known Allergies Allergy (Verified 08/13/25 11:01) Medications ???Medication ???Instructions ???Recorded ???Confirmed ???Type omeprazole 20 mg capsule,delayed 20 mg PO DAILY 09/15/23 08/13/25 H istory release inhalational spacing device (Space #1 ea 11/03/23 08/13/25 History Chamber) multivitamin with minerals-folic 1 tab PO DAILY 01/03/24 08/13/25 H istory acid 0.4 mg tablet albuterol sulfate 90 mcg/actuation 2 puff inhalation Q4H PRN 08/13/25 Rx aerosol inhaler shortness of breath or wheezing #8.5 grams Marijuana Medical Card .Route 04/16/25 08/13/25 History cetirizine 10 mg tablet (24Hour 10 mg PO DAILY PRN allergy symptom s 04/19/25 08/13/25 History Allergy) cholecalciferol (vitamin D3) 250 250 mcg PO QWEEK 05/10/25 08/13/25 History mcg (10,000 unit) capsule vitamin B complex 1 tab PO QDAY 05/30/25 08/13/25 Hi story metoprolol tartrate 50 mg tablet 50 mg PO ONCE #1 TAB 06/29/25 1005/02 Rx amitriptyline 10 mg tablet 10 mg PO QHS 08/06/25 08/13/25 His tory fluticasone fur. 200 mcg-umeclid 1 inh inhalation DAILY #60 ea 07/1008/13/25 Rx 62.5 mcg-vilant 25 mcg inhalat.powder (Trelegy Ellipta) nystatin 100,000 unit/mL oral 5 ml mucous membrane TID #250 mL 0 08/06/25 08/13/25 Rx suspension Ejection fraction %: 55 Have you fallen in the past year?: No Nurse's Note: Pt states she feels a heaviness in her chest. She does not feel any better since her last visit. She is struggling to do ADLs. Pt is okay with student coming in today for her visit. [facility] Medical History Wears glasses Post-menopausal Marijuana use [...] Diabetes Thyroid disorder Aunt Breast cancer Grandmother Hype (more content not included)... Normal [facility] Coronary Angiography CTon Coronary Angiography CT [facility] Imaging Services [address] [place] [address] 08/06/25 1853 MR#: [id number] Acct: [id number] Name: LILLIE HOLLAND Rep #: [id number] : 1975 49 From: Simon Del Rosario MD PCP: LINA Mckeon Status:REG CLI Y Location: CT CCTA w/Cont Coronary Arteries Date of Study:: 08/06/25 Dyspnea on exertion Coronary Calcium Scoring: High-resolution Computed Tomographic imaging of the chest was performed on [08/06/2025], with particular attention paid to the coronary arteries. Intravenous contrast agent was administered per protocol and images reconstructed and displayed. LEFT MAIN CORONARY ARTERY: Arises from the left main coronary cusp no significant atherosclerosis is noted [] LEFT ANTERIOR DESCENDING CORONARY ARTERY: Arises from the left main coronary artery and courses towards the apex of the ventricle with no significant atherosclerotic plaque present or obstructive lesions noted. [] LEFT CIRCUMFLEX CORONARY ARTERY: Nondominant vessel with no significant atherosclerotic plaquing noted and no obstructive lesions noted. [] RIGHT CORONARY ARTERY: Dominant right coronary artery with no atherosclerotic plaquing or obstructive lesions noted. [] THORACIC AORTA: [] PULMONARY ARTERY: [] LEFT ATRIUM/APPENDAGE: [] MITRAL VALVE: [] AORTIC VALVE: [] LEFT VENTRICLE: [] CORONARY CALCIUM SCORE: Not done [] Calcium Scoring Interpretation: Different methods to categorize the overall amount of coronary plaque. Overall amount CAC SIS Visual of coronary plaque P1 Mild -100 <2 1-2 vessels with mild amount of plaque P2 Moderate 101-300 3-4 1-2 vessels with moderate amount, 3 vessels with mild amount of plaque P3 Severe 301-999 5-7 3 vessels with moderate amount, 1 vessel with severe amount of plaque P4 Extensive >1000 >8 2-3 vessels with severe amount of plaque Conclusion: No coronary atherosclerosis or stenosis present. 08/06/25 1854 Date Simon Del Rosario MD Cosigner Signature (if applicable): Date CC: Dr. Simon Del Rosario MD; LINA Mckeon; LINA Faulkner Signed Normal [facility] Limited Chest CT Cardiac Onl yon 08-06-[address] Cardiac Only [facility] Imaging Services [address] [place] [address] Cardiac Only MR#: [id number] Acct: [id number] Name: LILLIE HOLLAND Rep #: [id number] : 1975 F 49 From: Wayne Lynn PCP: LINA Mckeon Status: REG CLI Study: Limited Chest CT Cardiac Only Date of Exam: Exam# [id number] Ordering Dr: Scotty Granados PROCEDURE: LIMITED CHEST CT CARDIAC ONLY 08/06/2025 REASON FOR EXAM: CHEST PAIN, UNSPECIFIED, OTHER FORMS OF DYSPNEA TECHNIQUE: Procedure Code: CTCCTACHLIM Modality: CT Procedure: LIMITED CHEST CT CARDIAC ONLY One or more dose reduction techniques were used (e.g., Automated exposure control, adjustment of the mA and/or kV according to patient size, use of iterative reconstruction technique). RADIATION DOSE SUMMARY: CTDlvol: 57.53 mGy DLP: 914.68 mGycm COMPARISON: Chest CT of 12/11/2024. CT/Limited Chest CT Cardiac Only IMPRESSION: Diffuse fatty infiltration of the liver is seen. Limited imaging of the lungs demonstrates no acute process. No pleural effusion or pneumothorax is seen in visualized areas. No adenopathy is noted. The visualized upper abdomen demonstrates no other significant abnormality. Reading Location: [id number] CC: LINA Mckeon; LINA Faulkner Product Evangelist: Signed Normal [facility] Pulmonary Visit Reporton Pulmonary Visit Report [facility] Pulmonary Medicine [address] [place] [address] OFFICE VISIT Date of Service: 08/06/25 MR#: [id number] Acct: [id number] Name: LILLIE HOLLAND Rep #: [id number] : 1975 Provider: PREETHI Mejía Age/Sex: 49/F Location: [facility] [place].PMW Status: Signed Assessment and Plan Assessment and Plan (1) Obstructive sleep apnea: Status: Acute Comment: AHI 10.2 Plan: New. Unfortunately, despite the patient given significant effort she has not noticed any benefit to PAP therapy. For this reason I am sending her for a titration study. Once test results are available for review I will order the patient the appropriate recommended pressure support. Return to the office in 3 months to evaluate her response to new recommended therapy. She has been encouraged to contact our office if she has any difficulty acclimating to new therapy. (2) Smoking greater than 20 pack years: Status: Chronic Comment: Quit in 2023 Plan: Continue to encourage complete smoking cessation. She remains appropriate for repeat LDCT in July 2026, ordered accordingly. (3) Obesity: Status: Chronic Qualifiers: Obesity type: due to excess calories [...] prognosis. Continue to encourage healthy weight loss. (4) Fibromyalgia: Status: Chronic Plan: Complicates exam, plan, care and prognosis. Currently being managed by rheumatology. (5) Asthma-COPD overlap syndrome: Status: Chronic Comment: FEV1 76% Plan: NIOX procedure performed in the office today returned with slightly elevated results. This indicates that the 100 mcg dose of Trelegy is not controlling the patient's symptoms. I am escalating therapy to 200 mcg dosing of Trelegy. Follow-up in the office in 3 months to evaluate response to therapy. She has been encouraged to contact the office with any new or worsening symptoms in the meantime. No indication for antibiotics or steroids today. (6) Diastolic dysfunction: Status: Chronic Comment: Stage I Plan: Established with cardiology. Orders: Orders NIOX Today R05 - Cough Polysomnography with PAP Today G47.33 - Obstructive sleep apnea (adult) (pediatric) Low Dose CT Lung Screening 1 Year F17.210 - Nicotine dependence, cigarettes, uncomplicated Medications: New wgtiinrmcig-zgyengtaj-vastu ter 200-62.5-25 mcg (Trelegy Ellipta) 1 inh inhalation DAILY 60 ea 6RF J44.89 - Other specified chronic obstructive pulmonary disease nystatin swish and swallow 5 cc three times per day for 10 days 5 mL mucous membrane TID 250 mL 1RF J44.89 - Other specified chronic obstructive pulmonary disease Discontinued hbkmfikoybv-rdblvicft-nxfjv ter 100-62.5-25 mcg (Trelegy Ellipta) administer at approximately the same time(s) each day Discontinued Reason: Order Changed 1 inh inhalation QDAY 60 ea 3RF J44.9 - Chronic obstructive pulmonary disease, unspecified Plan Details Additional Comments: This note was generated with Syntaxin dictation software. It may contain incorrect words, spelling, and punctuation that were not noted in checking the note before signing. Follow Up: 3 Months HPI 3 M FU Chief Complaint: New PAP therapy HPI Comments Details: This patient presents to the office today for follow-up of her asthma/COPD overlap syndrome with obstructive sleep apnea. She is ambulatory and on room air. She has not recently been seen in the ED or urgent care for any respiratory illness. She has not required any antibiotics or prednisone for any breathing problems. She is compliant with Trelegy 100 mcg 1 puff daily. She did report rinsing [...] chest tightness, chest pain or palpitations. She does report feeling a sensation of chest heaviness. She has a cardiac CAT scan today. She has not had any fever, chills or body aches. She continues complete smoking cessation. If you recall, she has a greater than 20-bppi-sjhl smoking history but quit completely back in November of 2023. She reports she has given serious effort to be compliant with PAP therapy. She tries to wear it at least 5 hours every night. After 5 hours she takes it off because she is not resting well with it on. She i (more content not included)... Normal [facility] 3D MAMM BILAT SCREENon 07-23 3D MAMM BILAT SCREEN [place] [address] Patient: LILLIE HOLLAND Phone#: : 1975 Age: 49 Gender: F Pt. Type: Out Account: [id number] Location: 052 Ordering: LEONORA SALDIVAR Exam Date: 07/23/2025/14:02 Family Phys: Charge Code: [id number] Physician: [place] Order #: [id number] Dose#: PROCEDURE: BILATERAL SCREENING BREAST TOMOSYNTHESIS MAMMOGRAM WITH CAD COMPARISON: [facility], 3D BILAT SCREEN, 05/21/2023, 14:15. [facility], 3D BILAT SCREEN, 05/22/2024, 14:24. INDICATIONS: [...] Michelle Boston MD on 07/23/2025 at 18:26 Normal [facility] CBC (INCLUDES DIFF/PLT)on Basophils (Bld) [#/Vol] 0.033 10*3/uL Normal 0-200 [facility] Comment on above: Performed By: #### 1 0231, 0838, 3800 #### [facility] [address], [address] [place] [address] Brainer: Zelalem Roach MD Basophils/100 WBC (Bld) 0.5 % Normal [facility] Comment on above: Performed By: #### 1 0231, 63, 7600 #### [facility] of [address], [address] [place] [address] Brainer: Zelalem Roach MD Eosinophils (Bld) [#/Vol] 0.119 10*3/uL Normal 15-500 [facility] Comment on above: Performed By: #### 1 0231, 63, 7600 #### [facility] of [address], [address] [place] [address] Brainer: Zelalem Roach MD Eosinophils/100 WBC (Bld) 1.8 % Normal [facility] Comment on above: Performed By: #### 1 023, 63, 7600 #### [facility] of [address], [address] [place] [address] Brainer: Zelalem Roach MD Erythrocyte distribution width (RBC) [Ratio] 14.0 % Normal 11.0-15.0 [facility] Comment on above: Performed By: #### 1 023, 63, 7600 #### [facility] of [place] [address] Brainer: Zelalem Roach MD Hematocrit (Bld) [Volume fraction] 37.5 % Normal 35.0-45.0 [facility] Comment on above: Performed By: #### 1 0231, 63, 7600 #### [facility] of [place] [address] Brainer: Zelalem Roach MD Hemoglobin (Bld) [Mass/Vol] 11.9 g/dL Normal 11.7-15.5 [facility] Comment on above: Performed By: #### 1 0231, 63, 7600 #### [facility] of [address], [address] [place] [address] Brainer: Zelalem Roach MD Lymphocytes (Bld) [#/Vol] 1.94 10*3/uL Normal 850-3900 [facility] Comment on above: Performed By: #### 1 230, 63, 7600 #### [facility] [place] [address] Brainer: Zelalem Roach MD Lymphocytes/100 WBC (Bld) 29.4 % Normal [facility] Comment on above: Performed By: #### 1 230, 6398, 0 #### [facility] [place] [address] Brainer: Zelalem Roach MD MCH (RBC) [Entitic mass] 29.5 pg Normal 27.0-33.0 [facility] Comment on above: Performed By: #### 1 230, 58, 0 #### [facility] [place] [address] Brainer: Zelalem Roach MD MCHC (RBC) [Mass/Vol] 31.7 g/dL Low 32.0-36.[address] [facility] Comment on above: Result Comment: For adults, a slight decrease in the calculated MCHC value (in the range of 30 to 32 g/dL) is most likely not clinically significant; however, it should be interpreted with caution in correlation with other red cell parameters and the patient's clinical condition. Performed By: #### 1 230, 48, 0 #### [facility] [place] [address] Brainer: Zelalem Roach MD MCV (RBC) [Entitic vol] 93.1 fL Normal 80.0-100.0 [facility] Comment on above: Performed By: #### 1 230, 63, 7600 #### [facility] [place] [address] Brainer: Zelalem Roach MD Monocytes (Bld) [#/Vol] 0.383 10*3/uL Normal 200-950 [facility] Comment on above: Performed By: #### 1 230, 63, 7600 #### [facility] of [address], [address] [place] [address] Brainer: Zelalem Roach MD Monocytes/100 WBC (Bld) 5.8 % Normal [facility] Comment on above: Performed By: #### 1 0231, 6399, 7600 #### [facility] of [address], [address] [place] [address] Brainer: Zelalem Roach MD Neutrophils (Bld) [#/Vol] 4.125 10*3/uL Normal 5320-9293 [facility] Comment on above: Performed By: #### 1 0231, 63, 7600 #### [facility] of [address], [address] [place] [address] Brainer: Zelalem Roach MD Neutrophils/100 WBC (Bld) 62.5 % Normal [facility] Comment on above: Performed By: #### 1 0231, 63, 7600 #### [facility] of [address], [address] [place] [address] Brainer: Zelalem Roach MD Platelet mean volume (Bld) [Entitic vol] 10.8 fL Normal 7.5-12.5 [facility] Comment on above: Performed By: #### 1 0231, 63, 7600 #### [facility] of [address], [address] [place] [address] Brainer: Zelalem Roach MD Platelets (Bld) [#/Vol] 274 10*3/uL Normal 140-400 [facility] Comment on above: Performed By: #### 1 0231, 63, 7600 #### [facility] of [address], [address] [place] [address] Brainer: Zelalem Roach MD RBC (Bld) [#/Vol] 4.03 10*6/uL Normal 3.80-5.10 [facility] Comment on above: Performed By: #### 1 0231, 6399, 7600 #### [facility] of [address], [address] [place] [address] Brainer: Zelalem Roach MD WBC (Bld) [#/Vol] 6.6 10*3/uL Normal 3.8-10.8 [facility] Comment on above: Performed By: #### 1 0231, 6399, 7600 #### [facility] of [address], [address] [place] [address] Brainer: Zelalem Rocah MD COMPREHENSIVE METABOLIC PANE [facility] 07-03-2025 Albumin [Mass/Vol] 4.2 g/dL Normal 3.6-5.1 [facility] Comment on above: Performed By: #### 1 0231, 6399, 7600 #### [facility] of [address], [address] [place] [address] Brainer: Zelalem Roach MD Albumin/Globulin [Mass ratio] 1.8 {ratio} Normal 1.0-2.5 [facility] Comment on above: Performed By: #### 1 0231, 63, 7600 #### [facility] of [address], [address] [place] [address] Brainer: Zelalem Roach MD ALP [Catalytic activity/Vol] 101 U/L Normal 37-153 [facility] Comment on above: Performed By: #### 1 0231, 6399, 7600 #### [facility] of [place] [address] Brainer: Zelalem Roach MD ALT [Catalytic activity/Vol] 26 U/L Normal 6-29 [facility] Comment on above: Performed By: #### 1 0231, 6399, 7600 #### [facility] of [address], [address] [place] [address] Brainer: Zelalem Roach MD AST [Catalytic activity/Vol] 22 U/L Normal 10-35 [facility] Comment on above: Performed By: #### 1 0231, 6399, 7600 #### [facility] of [address], [address] [place] [address] Brainer: Zelalem Roach MD Bilirubin [Mass/Vol] 0.3 mg/dL Normal 0.2-1.[address] [facility] Comment on above: Performed By: #### 1 0231, 63, 7600 #### [facility] [place] [address] Brainer: Zelalem Roach MD BUN/CREATININE RATIO SEE NOTE: Normal 6-22 [facility] Comment on above: Result Comment: Not Reported: BUN and Creatinine are within reference range. Performed By: #### 1 0231, 63, 7600 #### [facility] [address], [address] [place] [address] Brainer: Zelalem Roach MD Calcium [Mass/Vol] 8.9 mg/dL Normal 8.6-10.4 [facility] Comment on above: Performed By: #### 1 230, 63, 7600 #### [facility] [place] [address] Brainer: Zelalem Roach MD Chloride [Moles/Vol] 104 mmol/L Normal 98-[address] [facility] Comment on above: Performed By: #### 1 023, 63, 7600 #### [facility] [place] [address] Brainer: Zelalem Roach MD CO2 [Moles/Vol] 27 mmol/L Normal 20-32 [facility] Comment on above: Performed By: #### 1 023, 63, 7600 #### [facility] [place] [address] Brainer: Zelalem Roach MD Creatinine [Mass/Vol] 0.74 mg/dL Normal 0.50-1.[address] [facility] [address] [facility] Comment on above: Performed By: #### 1 023, 63, 7600 #### [facility] [place] [address] Brainer: Zelalem Roach MD GFR/1.73 sq M.predicted among non-blacks MDRD (S/P/Bld) [Vol rate/Area] 99 mL/min/{1.73_m2} Normal > OR = 60 [facility] Comment on above: Performed By: #### 1 0231, 63, 7600 #### [facility] of [address], [address] [place] [address] Brainer: Zelalem Roach MD Globulin (S) [Mass/Vol] 2.4 g/dL Normal 1.9-3.7 [facility] Comment on above: Performed By: #### 1 023, 63, 7600 #### [facility] of [address], [address] [place] [address] Brainer: Zelalem Roach MD Glucose [Mass/Vol] 94 mg/dL Normal 65-99 [facility] Comment on above: Result Comment: Fasting reference interval Performed By: #### 1 230, 63, 7600 #### [facility] of [address], [address] [place] [address] Brainer: Zelalem Roach MD Potassium [Moles/Vol] 3.9 mmol/L Normal 3.5-5.[address] [facility] Comment on above: Performed By: #### 1 230, 63, 7600 #### [facility] [place] [address] Brainer: Zelalem Roach MD Protein [Mass/Vol] 6.6 g/dL Normal 6.1-8.1 [facility] Comment on above: Performed By: #### 1 023, 63, 7600 #### [facility] of [place] [address] Brainer: Zelalem Roach MD Sodium [Moles/Vol] 139 mmol/L Normal 135-146 [facility] Comment on above: Performed By: #### 1 023, 6399, 7600 #### [facility] of [place] [address] Brainer: Zelalem Roach MD Urea nitrogen [Mass/Vol] 15 mg/dL Normal 7-25 [facility] Comment on above: Performed By: #### 1 0231, 63, 7600 #### [facility] [place] [address] Brainer: Zelalem Roach MD HEMOGLOBIN A1con 07-03-2025 HbA1c (Bld) [Mass fraction] 5.7 % High <5.7 [facility] Comment on above: Result Comment: For someone without known diabetes, [...] of diabetes for children. Performed By: #### 1 0231, 63, 5950 #### [facility] [place] [address] Brainer: Zelalem Roach MD LIPID PANEL, STANDARDon 06-09 Cholesterol [Mass/Vol] 175 mg/dL Normal <200 [facility] Comment on above: Performed By: #### 1 0231, 63, 7600 #### [facility] [place] [address] Brainer: Zelalem Roach MD Cholesterol in HDL [Mass/Vol] 50 mg/dL Normal > OR = 50 [facility] Comment on above: Performed By: #### 1 0231, 6399, 7600 #### [facility] [place] [address] Brainer: Zelalem Roach MD Cholesterol in LDL [Mass/Vol] 90 mg/dL Normal [facility] Comment on above: Result Comment: Refe rence range: <100 Desirable range <100 mg/dL for primary prevention; <70 mg/dL for patients with CHD or diabetic patients with > or = 2 CHD risk factors. LDL-C is now calculated using the Cesario-Russell calculation, which is a validated novel method providing better accuracy than the Friedewald equation in the estimation of LDL-C. Cesario SS et al. FREDA. 2013;310(19): 2709-7228 (http://education.Panjiva.Mobivery/faq/TAG759) Performed By: #### 1 0231, 6399, 7600 #### [facility] [address], [address] [place] [address] Brainer: Zelalem Roach MD Cholesterol.total/Cho lesterol in HDL [Mass ratio] 3.5 {ratio} Normal <5.0 [facility] Comment on above: Performed By: #### 1 0231, 6399, 8080 #### [facility] [address], [address] [place] [address] Brainer: Zelalem Roach MD NON HDL CHOLESTEROL 125 mg/dL (calc) Normal <130 [facility] Comment on above: Result Comment: For patients with diabetes plus 1 major ASCVD risk factor, treating to a non-HDL-C goal of <100 mg/dL (LDL-C of <70 mg/dL) is considered a therapeutic option. Performed By: #### 1 0231, 6399, 7600 #### [facility] [address], [address] [place] [address] Brainer: Zelalem Roach MD Triglyceride [Mass/Vol] 268 mg/dL High <150 [facility] Comment on above: Result Comment: If a non-fasting specimen was collected, consider repeat triglyceride testing on a fasting specimen if clinically indicated. Escobar et al. J. of Clin. Lipidol. 2015;9:129-169. Performed By: #### 1 0231, 6399, 7600 #### [facility] [address], [address] [place] [address] Brainer: Zelalem Roach MD Magnetic resonance imaging r eportOrdered By: Andrés Gomez on 06-19-2025 Study report [facility] Imaging Services [address] [place], [place] [id number] Lower Ext Joint Only (Routine) MR#: [id number] Acct: [id number] Name: LILLIE HOLLAND Rep #: [id number] : 1975 F 49 From: Samuel Gomez MD PCP: LINA Mckeon Status: REG CLI Study:Lower Ext Joint Only (Routine) Date of Exam: 06/18/25 Exam# [id number] Ordering Dr: Zack Whalen DPLonnie PROCEDURE: LOWER EXT JOINT ONLY (ROUTINE) 06/18/2025 REASON FOR EXAM: PLANTAR FASCIITIS, HEEL SPUR, PERONEAL TENDONITIS TECHNIQUE: T1, T2, stir, MRI right ankle: Multiplanar and multisequence images were obtained without IV contrast administration. COMPARISON: COMPARISON : None FINDINGS: Bones: There is normal articulation of the ankle joint. There is focal marrow edema in the inferior calcaneus, and calcaneal spur. No acute fractures or dislocations. Normal marrow signal. The contours ofthe talar dome are normal. Achilles tendon: Intact Achilles tendon. There is a edema, thickening, and attenuation of the plantar fascia origin, most severe in the medial band, with adjacent soft tissue edema and fluid signal. Tendons: Evaluation of the peroneal tendons demonstrates no evidence of tendinosis or dislocation. There is increased fluid in the posterior tibial tendon sheath without tendon tear or retraction, mild tenosynovitis. The flexor digitorum longus and flexor hallucis longus tendons are intact. The extensor tendons are intact. The extensor retinaculum is intact and normal in signal. Sinus Tarsi: The subtalar joint is intact. Signal in the sinus tarsi is normal.Transverse and cervical ligaments are intact. Ligaments: Lateral syndesmotic ankle ligaments including the anterior and posterior tibiofibular ligaments are intact. The anterior and posterior talofibular ligaments are intact. The medial ankle ligaments including the deltoid and spring ligaments are intact. Effusion: There is no joint effusion. MRI/Lower Ext Joint Only (Routine) IMPRESSION: There is increased fluid in the posterior tibial tendon sheath without tendon tear or retraction, mild tenosynovitis. There is a edema, thickening, and attenuation of the plantar fascia origin, mostsevere in the medial band, with adjacent soft tissue edema and fluid signal, with plantar fasciitis. Reading Location: [place] CC: JACE Whalen; LINA Mckeon ~ Product Evangelist: Signed [facility] Lower Ext Joint Only (Routin e)on 06-18-2025 Lower Ext Joint Only (Routine) [facility] Imaging Services [address] [place] [address] Lower Ext Joint Only (Routine) MR#: [id number] Acct: [id number] Name: LILLIE HOLLAND Rep #: [id number] : 1975 F 49 From: Andrés Gomez MD PCP: LINA Mckeon Status: REG CLI Study: Lower Ext Joint Only (Routine) Date of Exam: 0 06/18/25 Exam# [id number] Ordering Dr: Zack Whalen DPM PROCEDURE: LOWER EXT JOINT ONLY (ROUTINE) 06/18/2025 REASON FOR EXAM: PLANTAR FASCIITIS, HEEL SPUR, PERONEAL TENDONITIS TECHNIQUE: T1, T2, stir, MRI right ankle: Multiplanar and multisequence images were obtained without IV contrast administration. COMPARISON: COMPARISON : None FINDINGS: Bones: There is normal articulation of the ankle joint. There is focal marrow edema in the inferior calcaneus, and calcaneal spur. No acute fractures or dislocations. Normal marrow signal. The contours of the talar dome are normal. Achilles tendon: Intact Achilles tendon. There is a edema, thickening, and attenuation of the plantar fascia origin, most severe in the medial band, with adjacent soft tissue edema and fluid signal. Tendons: Evaluation of the peroneal tendons demonstrates no evidence of tendinosis or dislocation. There is increased fluid in the posterior tibial tendon sheath without tendon tear or retraction, mild tenosynovitis. The flexor digitorum longus and flexor hallucis longus tendons are intact. The extensor tendons are intact. The extensor retinaculum is intact and normal in signal. Sinus Tarsi: The subtalar joint is intact. Signal in the sinus tarsi is normal. Transverse and cervical ligaments are intact. Ligaments: Lateral syndesmotic ankle ligaments including the anterior and posterior tibiofibular ligaments are intact. The anterior and posterior talofibular ligaments are intact. The medial ankle ligaments including the deltoid and spring ligaments are intact. Effusion: There is no joint effusion. MRI/Lower Ext Joint Only (Routine) IMPRESSION: There is increased fluid in the posterior tibial tendon sheath without tendon tear or retraction, mild tenosynovitis. There is a edema, thickening, and attenuation of the plantar fascia origin, most severe in the medial band, with adjacent soft tissue edema and fluid signal, with plantar fasciitis. Reading Location: [place] CC: JACE Whalen; LINA Mckeon Product Evangelist: Signed Normal [facility] Absolute lymphocyte countOrd ered By: Simon Del Rosario on 05-30-2025 Lymphocytes Auto (Unsp spec) [#/Vol] 1.94 10*3/uL 0.83-4.51 [facility] Absolute neutrophil countOrd ered By: [facility]ori on 05-30-2025 Neutrophils (Bld) [#/Vol] 4.2 10*3/uL 2.0-7.7 [facility] Anion gap in Serum or Plasma Ordered By: Simon Carin on 05-30-2025 Anion gap [Moles/Vol] 11 mmol/L 5-15 [facility] Automated lymphocyte count a s percentage of total leukocytesOrdered By: [facility] Carin on 05-30-2025 Lymphocytes/100 WBC Auto (Unsp spec) 28.7 % 19-41 [facility] [facility] BUN/creatinine ratioOrdered By: [facility] Carin on 05-30-2025 Urea nitrogen/Creatinine [Mass ratio] 18.4 mg/mg 10- [facility] Basic Metabolic Profile (BMP )on 05-30-2025 BUN/CRE 18.4 RATIO Normal - [facility] Comment on above: Performed By: #### L 500.2500, L503.7505, L100.0100 ####[facility] [address] [place], [address] Calcium [Mass/Vol] 9.5 mg/dL Normal 7.6-11.0 [facility] Comment on above: Performed By: #### L 500.2500, L503.7505, L100.0100 ####[facility] [address] [place], [address] Chloride [Moles/Vol] 105 mmol/L Normal 98-108 [facility] Comment on above: Performed By: #### L 500.2500, L503.7505, L100.0100 ####[facility] [address] [place], [address] CO2 [Moles/Vol] 25.0 mmol/L Normal 21.0-32.0 [facility] Comment on above: Performed By: #### L 500.2500, L503.7505, L100.0100 ####[facility] [address] [place], [address] Creatinine [Mass/Vol] 0.61 mg/dL Low 0.70-1.20 [facility] Comment on above: Performed By: #### L 500.2500, L503.7505, L100.0100 ####[facility] [address] [place], [address] GAP 11 Normal 5-15 [facility] Comment on above: Performed By: #### L 500.2500, L503.7505, L100.0100 ####[facility] [address] [place], [address] GFR/1.73 sq M.predicted among non-blacks MDRD (S/P/Bld) [Vol rate/Area] 109 mL/min/{1.73_m2} Normal >60 [facility] Comment on above: Result Comment: mL/m in/1.73m2 CKD-EPI Creatinine Equation (2020) Performed By: #### L 500.2500, L503.7505, L100.0100 ####[facility] [address] [place], [address] Glucose [Mass/Vol] 89 mg/dL Normal 70-99 [facility] Comment on above: Performed By: #### L 500.2500, L503.7505, L100.0100 ####[facility] [address] [place], [address] Potassium [Moles/Vol] 3.7 mmol/L Normal 3.3-5.1 [facility] Comment on above: Performed By: #### L 500.2500, L503.7505, L100.0100 ####[facility] [address] [place], [address] Sodium [Moles/Vol] 141 mmol/L Normal 133-145 [facility] Comment on above: Performed By: #### L 500.2500, L503.7505, L100.0100 ####[facility] [address] [place], [address] Urea nitrogen [Mass/Vol] 11 mg/dL Normal 4-19 [facility] Comment on above: Performed By: #### L 500.2500, L503.7505, L100.0100 ####[facility] [address] [place], [address] Basophil percentageOrdered B y: Simon Franzori on 05-30-2025 Basophils/100 WBC (Bld) 0.3 % 0-1 [facility] CBC W/Diff, Automatedon 05-09 Absolute Lymph 1.94 X10 3/uL Normal 0.83-4.51 [facility] Comment on above: Performed By: #### L 500.2500, L503.7505, L100.0100 ####[facility] [address] [place], [address] Absolute Neut 4.2 X10 3/uL Normal 2.0-7.7 [facility] Comment on above: Performed By: #### L 500.2500, L503.7505, L100.0100 ####[facility] [address] [place], [address] Basophils/100 WBC (Bld) 0.3 % Normal 0-1 [facility] Comment on above: Performed By: #### L 500.2500, L503.7505, L100.0100 ####[facility] [address] [place], [address] Eosinophils/100 WBC (Bld) 1.6 % Normal 0-5 [facility] Comment on above: Performed By: #### L 500.2500, L503.7505, L100.0100 ####[facility] [address] [place], [address] Erythrocyte distribution width (RBC) [Ratio] 13.4 % Normal 11.6-14.6 [facility] Comment on above: Performed By: #### L 500.2500, L503.7505, L100.0100 ####[facility] [address] [place], [address] Hematocrit (Bld) [Volume fraction] 38.5 % Normal 37-47 [facility] Comment on above: Performed By: #### L 500.2500, L503.7505, L100.0100 ####[facility] [address] [place], [address] Hemoglobin (Bld) [Mass/Vol] 12.4 g/dL Normal 12.0-15.0 [facility] Comment on above: Performed By: #### L 500.2500, L503.7505, L100.0100 ####[facility] [address] [place], [address] IG% 0.400 Normal 0.0-0.9 [facility] Comment on above: Result Comment: IG% - Immature Granulocytes (promyelocytes, myelocytes and metamyelocytes) > 1% indicates that a LEFT SHIFT is Present. Performed By: #### L 500.2500, L503.7505, L100.0100 ####[facility] [address] [place], [address] Lymphocytes/100 WBC (Bld) 28.7 % Normal 19-41 [facility] Comment on above: Performed By: #### L 500.2500, L503.7505, L100.0100 ####[facility] [address] [place], [address] MCH (RBC) [Entitic mass] 28.8 pg Normal 27.0-32.0 [facility] Comment on above: Performed By: #### L 500.2500, L503.7505, L100.0100 ####[facility] [address] [place], [address] MCHC (RBC) [Mass/Vol] 32.2 g/dL Normal 32-36 [facility] Comment on above: Performed By: #### L 500.2500, L503.7505, L100.0100 ####[facility] [address] [place], [address] MCV (RBC) [Entitic vol] 89.3 fL Normal 81-99 [facility] Comment on above: Performed By: #### L 500.2500, L503.7505, L100.0100 ####[facility] [address] [place], [address] Monocytes/100 WBC (Bld) 6.2 % Normal 0-10 [facility] Comment on above: Performed By: #### L 500.2500, L503.7505, L100.0100 ####[facility] [address] [place], [address] Neutrophils/100 WBC (Bld) 62.8 % Normal 47-70 [facility] Comment on above: Performed By: #### L 500.2500, L503.7505, L100.0100 ####[facility] [address] [place], [address] Nucleated RBC (Bld) [#/Vol] 0 10*3/uL Normal 0-5 [facility] Comment on above: Performed By: #### L 500.2500, L503.7505, L100.0100 ####[facility] [address] [place], [address] Platelet mean volume (Bld) [Entitic vol] 10.7 fL Normal 6.2-12.0 [facility] Comment on above: Performed By: #### L 500.2500, L503.7505, L100.0100 ####[facility] [address] [place], [address] Platelets (Bld) [#/Vol] 262 10*3/uL Normal 150-450 [facility] Comment on above: Performed By: #### L 500.2500, L503.7505, L100.0100 ####[facility] [address] [place], [address] RBC (Bld) [#/Vol] 4.31 10*6/uL Normal 4.2-5.4 [facility] Comment on above: Performed By: #### L 500.2500, L503.7505, L100.0100 ####[facility] [address] [place], [address] RDW SD 43.8 fl Normal 35.1-43.9 [facility] Comment on above: Performed By: #### L 500.2500, L503.7505, L100.0100 ####[facility] [address] [place], [address] WBC (Bld) [#/Vol] 6.8 10*3/uL Normal 4.4-11.0 [facility] Comment on above: Performed By: #### L 500.2500, L503.7505, L100.0100 ####[facility] [address] [place], [address] Carbon dioxide, total [Moles /volume] in Central venous bloodOrdered By: Simon Del Rosario on 05-30-2025 CO2 [Moles/Vol] 25.0 mmol/L 21.0-32.0 [facility] Cardiology Visit Reporton Cardiology Visit Report [facility] [address] [place] [address] OFFICE VISIT Date of Service: 05/30/25 MR#: [id number] Acct: [id number] Name: LILLIE HOLLAND Rep #: [id number] : 1975 Provider: Dr. 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 Normal [facility] Chloride assayOrdered By: Kishore Del Rosario on 05-30-2025 Chloride [Moles/Vol] 105 mmol/L 98-108 [facility] Eosinophil percentageOrdered By: Simon Del Rosario on 05-30-2025 Eosinophils/100 WBC (Bld) 1.6 % 0-5 [facility] Erythrocyte distribution wid th ratioOrdered By: Simon Del Rosario on 05-30-2025 Erythrocyte distribution width (RBC) [Ratio] 13.4 % 11.6-14.6 [facility] Erythrocyte distribution wid th standard deviationOrdered By: Simon Del Rosario on 05-30-2025 Erythrocyte distribution width (RBC) [Ratio] 43.8 fl 35.1-43.9 [facility] Glomerular filtration rate ( GFR) estimation/1.73 sq m using serum, plasma, or whole bOrdered By: Simon Del Rosario on 05-30-2025 GFR/1.73 sq M.predicted among non-blacks MDRD (S/P/Bld) [Vol rate/Area] 109 mL/min/{1.73_m2} >60 [facility] Comment on above: mL/min/1.73m2 CKD-EP I Creatinine Equation (2020) Hematocrit Auto (Bld) [Volum e fraction]Ordered By: Simon Del Rosario on 05-30-2025 Hematocrit (Bld) [Volume fraction] 38.5 % 37-47 [facility] Hemoglobin measurementOrdere d By: Simon Del Rosario on 05-30-2025 Hemoglobin (Bld) [Mass/Vol] 12.4 g/dL 12.0-15.0 [facility] Immature granulocytes/100 WB C Auto (Bld)Ordered By: Simon Del Rosario on 05-30-2025 Immature granulocytes/100 WBC (Bld) 0.400 % 0.0-0.9 [facility] Comment on above: IG% - Immature Granu locytes (promyelocytes, myelocytes and metamyelocytes) > 1% indicates that a LEFT SHIFT is Present. L503.7505on 05-30-2025 Natriuretic peptide B (Bld) [Mass/Vol] 164 pg/mL Normal <=900 [facility] Comment on above: Result Comment: Hear t Failure Unlikely: < 300 pg/mL Heart Failure Likely < 50 Years: > 450 pg/mL 50-75 Years: > 900 pg/mL >75 Years: > 1800 pg/mL Performed By: #### L 500.2500, L503.7505, L100.0100 ####[facility] [address] [place], [place], [address] MCV (mean corpuscular volume ) determinationOrdered By: Simon Del Rosario on 05-30-2025 MCV (RBC) [Entitic vol] 89.3 fL 81-99 [facility] Mean corpuscular hemoglobin (MCH) determinationOrdered By: Simon Del Rosario on 05-30-2025 MCH (RBC) [Entitic mass] 28.8 pg 27.0-32.0 [facility] Mean corpuscular hemoglobin concentration (MCHC) determinationOrdered By: Simon Del Rosario on 05-30-2025 MCHC (RBC) [Mass/Vol] 32.2 g/dL 32-36 [facility] Mean platelet volume determi nationOrdered By: Simon Del Rosario on 05-30-2025 Platelet mean volume (Bld) [Entitic vol] 10.7 fL 6.2-12.0 [facility] Monocyte percentageOrdered B y: Simon Del Rosario on 05-30-2025 Monocytes/100 WBC (Bld) 6.2 % 0-10 [facility] Natriuretic peptide.B prohor brayden N-Terminal [Mass/volume] in Serum or PlasmaOrdered By: Simon Del Rosario on 05-30-2025 Natriuretic peptide.B prohormone N-Terminal [Mass/Vol] 164 pg/mL <900 [facility] Comment on above: Heart Failure Unlike ly: < 300 pg/mLHeart Failure Likely< 50 Years: > 450 pg/mL50-75 Years: > 900 pg/mL>75 Years: > 1800 pg/mL Neutrophil percentageOrdered By: [facility] Carin on 05-30-2025 Neutrophils/100 WBC (Bld) 62.8 % 47-70 [facility] Nucleated red blood cell per centageOrdered By: Simonkaris Del Rosario on 05-30-2025 Nucleated RBC/100 WBC (Bld) [Ratio] 0 % 0-5 [facility] Platelet countOrdered By: Kishore Del Rosario on 05-30-2025 Platelets (Bld) [#/Vol] 262 10*3/uL 150-450 [facility] Potassium measurement (mass/ volume)Ordered By: Simon Del Rosario on 05-30-2025 Potassium (Unsp spec) [Mass/Vol] 3.7 mmol/L 3.3-5.1 [facility] RBC Auto (Bld) [#/Vol]Ordere d By: Simon Del Rosario on 05-30-2025 RBC (Bld) [#/Vol] 4.31 10*6/uL 4.2-5.4 [facility] Serum creatinine measurement (mass/volume)Ordered By: Saint Bonaventurekaris Del Rosario on 05-30-2025 Creatinine [Mass/Vol] 0.61 mg/dL Low 0.70-1.20 [facility] Serum glucose measurement (m ass/volume)Ordered By: Simon Del Rosario on 05-30-2025 Glucose [Mass/Vol] 89 mg/dL 70-99 [facility] Serum or plasma calcium yasmeen urement (mass/volume)Ordered By: Simon Carin on 05-30-2025 Calcium [Mass/Vol] 9.5 mg/dL 7.6-11.0 [facility] Serum or plasma urea nitroge n measurement (mass/volume)Ordered By: Simon Del Rosario on 05-30-2025 Urea nitrogen [Mass/Vol] 11 mg/dL 4-19 [facility] Sodium levelOrdered By: Iker Del Rosario on 05-30-2025 Sodium [Moles/Vol] 141 mmol/L 133-145 [facility] White blood cell (WBC) count Ordered By: [facility] on 05-30-2025 WBC (Bld) [#/Vol] 6.8 10*3/uL 4.4-11.0 [facility] Colonoscopy Reporton 025 Colonoscopy Report [facility] Medical Records Department [address] [place] [address] Colonoscopy Report MR#: [id number] Acct: [id number] Name: LILLIE HOLLAND Rep #: [id number] : 1975 49 From: Maddy Amador MD PCP: LINA Mckeon Status:[facility] Patient Name: Lillie Holland Procedure Date: 04/23/2025 [...] pathology results. Procedure Code(s): --- Professional --- 12834, PT, Colonoscopy, flexible; with removal of tumor(s), polyp(s), or other lesion(s) by snare technique Diagnosis Code(s): --- Professional --- Z86.010, Personal history of colonic polyps D12.5, Benign neoplasm of sigmoid colon CPT copyright 2021 [employer]. All rights reserved. The codes documented in this report are preliminary and upon independent living instructor review may be revised to meet current compliance requirements. MD Maddy Jc MD 04/23/2025 8:41:10 AM This report has been signed electronically. Number of Addenda: 0 Note Initiated On: 04/23/2025 8:05 AM 04/23/25 0841 Date Maddy Amador MD Cosigner Signature: Date (if indicated) CC: Dr. Maddy Amador MD; LINA Mckeon Date Dictated: 04/23/25 08 Date Transcribed: Product Evangelist: TR Signed [facility] MR/POSTOP.ANEon 04-23-2025 MR/POSTOP.ANE [facility] Medical Records Department [address] [place] [address] Anesthesia Postop Eval I 04/23/25 0846 MR#: [id number] Acct: [id number] Name: HOLLAND,LILLIE CECILE Rep #: [id number] : 1975 49 From: Jesse Gore PCP: LINA Mckeon Status:[facility] Y Race: C Location: [place] [address] Anesthesia: Postop Eval I Current Vital Signs [...] Anesthesia document: Postop Eval 1 completed: Yes 04/23/2546 Date Jesse Gómez Signature: Date CC: Signed [facility] MR/DTHDHLUH0mo 04-23-2025 MR/POSTOPAN2 [facility] Medical Records Department [address] [place] [address] Anesthesia Postop Eval II 04/23/25 1229 MR#: [id number] Acct: [id number] Name: HOLLANDLILLIEHumaira HBUER Rep #: [id number] : 1975 49 From: Yovani Walker MD PCP: LINA Mckeon Status:DEP SD Y Race: C Location: EN Anesthesia Postop [...] MD Cosigner Signature: Date CC: Signed Normal [facility] Surgery Specimen Level Katheryn 04-23-2025 Surgery Specimen Level IV Patient Age/Sex Location Account Attending Physician HEATHERLILLIE CECILE 49/F EN [id number] Dr. Maddy Amador MD Specimen: [id number] Received: 04/23/25 Status: AMRIT Winters Num: [id number] Spec Type: COLON BX Subm Dr: Dr. Maddy Amador MD HEADER OPERATION: Colonoscopy with biopsy PRE-OP DIAGNOSIS: History of colonic polyps TISSUE SUBMITTED: A- Sigmoid colon polyp MICROSCOPIC DIAGNOSIS A. Sigmoid polyp, colon, biopsy: Hyperplastic polyp. MICROSCOPIC DESCRIPTION Slides are reviewed. GROSS DESCRIPTION A. Received in fixative is one container labeled with the patient's name and designated "Sigmoid colon polyp." The specimen consists of three irregular fragments of light evans soft tissue that in aggregate measure 0.1 to 0.5 cm. The specimen is totally submitted in one cassette. CPT:46259 EDITH/ 04/23/2025 Patient Age/Sex Location Account Attending Physician LILLIE HOLLAND 49/F EN [id number] Dr. Maddy Amador MD Signed (signature on file) Dr. Tayler Jovel MD 05/01/25 0851 Normal [facility] Comment on above: Performed By: #### P SUIV ####[facility] [address] 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 Hx Hospitalization No 04/19/25 12:09 Any Problems [...] take am of surgery PONV PONV - locker room manager: PONV - locker room manager Female Yes 04/19/25 12:09 HX of Motion [...] 04/16/25 08:57 Respiratory Assessment Respiratory Assessment - locker room manager: Respiratory Tract Infection Hx - locker room manager Hx Respiratory Tract Infection No 04/19/25 12:09 STOP Sleep Apnea STOP Sleep Apnea - locker room manager: STOP Sleep Apnea - locker room manager Hx Hypertension No 04/19/25 12:09 Hx Sleep [...] Tobacco Use History Tobacco Use History - locker room manager: Tobacco Use History - locker room manager Tobacco Use Smoking Status Former smoker 04/19/25 12:09 Hx Tobacco Use Yes 04/19/25 12:09 Years Smoking Packs Smoked per Day Smoking Cessation Date was Yes - quit smoking within 15 04/19/25 12:09 within the last 15 years years Hx Smoking Cessation Date Hx Smoking Cessation Counseling Hematologic Medial History Hematologic Hx - locker room manager: Hematologic 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 Normal [facility] Pulmonary Visit Reporton Pulmonary Visit Report [facility] [place] [address] [place] [address] OFFICE VISIT Date of Service: 04/16/25 MR#: [id number] Acct: [id number] Name: LILLIE HOLLAND Rep #: [id number] : 1975 Provider: PREETHI Mejía Age/Sex: 49/F Location: [facility] Status: Signed Assessment and Plan Assessment and [...] Additional Comments: This note was generated with Syntaxin dictation software. It may contain incorrect words, [...] you recall, she has a greater than 39-znny-purj smoking history but quit completely back in [...] exertion Interpr (more content not included)... Normal [facility] 6 Minute Walk Teston 025 6 Minute Walk Test y [facility] Pulmonary Services/Neurology [address] [place] [address] MR#: [id number] Acct: [id number] Name: LILLIE HOLLAND Rep #: [id number] : 1975 49 From: Dangelo Muller DO Referring Dr: Ashanti Mejía CYLINDER SANDER OPERATOR CYLINDER SANDER OPERATOR-C Status: DEP CLI Location: PSN Date: Sex: F C PSN 6 Minute Walk Test 6 Minute Walk Test 6 Minute Walk Test: 6 Minute Walk Test PSN:6-Minute Walk Test Start: 03/27/25 12:41 Freq: Status: Discharge Protocol: RESP.6MINW Document 03/27/25 12:28 [facility] (Rec: 03/27/25 12:47 [facility]B [id number]) 6 Minute Walk Test Date Performed 03/27/25 [...] use of supplemental oxygen at this time. 04/03/258 Date Dangelo Muller DO CC: Date Dictated: 04/03/258 Date Transcribed: 04/03/251227 Product Evangelist: Dr. Dangelo Muller DO Signed Normal [facility] Echo Complete W/ Contraston 03-23-2025 Echo Complete W/ Contrast [facility] Cardi[facility] [address] [place] [address] Echo Complete W/ Contrast 03/23/25 1400 MR#: [id number] Acct: [id number] Name: LILLIE HOLLAND Rep #: [id number] : 1975 49 From: Simon Del Rosario MD Attending Dr: Ashanti Mejía NP-C Status: RE G CLI Ordering Dr: Ashanti Mejía CYLINDER SANDER OPERATOR CYLINDER SANDER OPERATOR-C Date: Location: [facility] Sex: F C Admitted: Reason For [...] Referring Physician: Leonora Saldivar Performed By: Yesenia Canales RDCS, RVT 03/23/251655 Date Simon Del Rosario MD CC: PREETHI Mejía; LINA Mckeon Date Dictated: 03/23/25 1400 Date Transcribed: 03/23/251655 Product Evangelist: Signed Normal [facility] Pulmonary Visit Reporton Pulmonary Visit Report [facility] Medicine of [address] [place] [address] OFFICE VISIT Date of Service: 03/05/25 MR#: [id number] Acct: [id number] Name: LILLIE HOLLAND Rep #: [id number] : 1975 Provider: PREETHI Mejía Age/Sex: 49/F Location: [facility] Status: Signed Assessment and Plan Assessment and [...] Additional Comments: This note was generated with [employer] dictation software. It may contain incorrect words, [...] you recall, she has a greater than 22-ypog-xuds smoking history but quit completely back in [...] concerning pulmon (more content not included)... Normal [facility] FOOT COMPLETE RTon 5 FOOT COMPLETE RT [place] [address] Patient: LILLIE HOLLAND Phone#: : 1975 Age: 49 Gender: F Pt. Type: Out Account: [id number] Location: [facility] Ordering: LEONORA SALDIVAR Exam Date: 01/08/2025/12:31 Family Phys: Charge Code: [id number] Physician: [place] Order #: [id number] Dose#: PROCEDURE: X-RAY FOOT RT COMPLETE MIN 3 VIEWS COMPARISON: [facility], XR, FOOT RT COMPLETE, 08/04/2021, 14:47. [...] Moon MD on 01/08/2025 at 15:42 Normal [facility] Low Dose CT Lung Screeningon 12-11-[address] Lung Screening [facility] Imaging Services [address] [place] [id number] Lung Screening MR#: [id number] Acct: [id number] Name: LILLIE HOLLAND Rep #: [id number] : 1975 F 49 From: Mendoza Reyes MD PCP: LINA Mckeon Status: REG CLI Study: Low Dose CT Lung Screening Date of Exam: 12/11 Exam# [id number] Ordering Dr: Ashanti Mejía CYLINDER SANDER OPERATOR CYLINDER SANDER OPERATOR-C PROCEDURE: LOW DOSE CT LUNG SCREENING [...] potentially significant findings (non-lung cancer) Reading Location: [facility] CC: PREETHI Mejía; LINA Mckeon Product Evangelist: Signed [facility] CNOVon 07-24-2024 CNOV Office Visit (OBGYWM ) HEATHERLILLIE M ([id number]) 1975 F Date Time Provider Department 07/24/24 12:45 PM LAURITA JAMISON OBGYWM During your visit today, we recorded the following information about you: Blood pressure Weight 120/70 76.2 kg Laurita Jamison APRN.CNP 07/24/2024 1:32 PM Signed Lilliehumaira Holland is a 48 year old female [...] L2 SAB0 IAB0 Ectopic0 Multiple0 Live Births2 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 History LMP: 01/09/2008, Hysterectomy Age at Menarche: Age at First : Age at Menopause: Breaker Boss History Comments: Sexual Activity: Yes; Male Contraception: [...] medication, no leakage or incontinence Laurita Jamison APRN.[employer]REGLASS LAY UP WORKER Medical Decision Making: Problems: Low: Stable chronic illness Risk: Low: Low risk from testing/treatment Medical Decision Making Level: 3 - Low Allergies As of Date: 07/24/2024 Noted Allergy Reaction BACTRIM (SULFAMETHOXAZOLE-TRIMETH*0 03/27/2008 8 - GI Upset Date Reviewed: 07/24/2024 Reviewed by: Krys Cortes MA - Fully Assessed Reason f (more content not included)... Normal [facility] FSH SerPl-aCncon 06-23-2024 Follitropin Qn 20.1 m[IU]/mL Normal See comment [facility] Comment on above: Order Comment: Speci men Type: BLOOD SPECIMEN Ordering Facility: [facility] Address: [address] [place] [address] [place] [address] Result Comment: Refe rence range: Follicular: 3.5-12.5 mIU/mL Ovulation: 4.7-21.5 mIU/mL Luteal: 1.7-7.7 mIU/mL Postmenopausal: 25.8-134.8 mIU/mL Performed By: #### 1 5067-2, 59920-3 #### [facility] CLIA [id number] [address] [place] [address] [place] Insulin SerPl-aCncon 024 Insulin Qn 6.5 u[IU]/mL Normal 3.0-25.[address] [facility] Comment on above: Order Comment: Speci men Type: BLOOD SPECIMEN [facility] Facility: [facility] Address[facility] [place] [address] Performed By: #### 1 5067-2, 52540-5 #### [facility] CLIA [id number] [address] [place] [address] [place] Laboratory - Chemistry and C hemistry - challengeon 06-23-2024 Albumin [Mass/Vol] 4.3 g/dL Normal 3.6 - 5.1 g/dL [facility], Inc.; [employer] Albumin/Globulin [Mass ratio] 1.7 {ratio} Normal 1.0 - 2.5 [employer], [employer].; [employer] ALP [Catalytic activity/Vol] 92 U/L Normal 31 - 125 U/L [employer] ALT [Catalytic activity/Vol] 16 U/L Normal 6 - 29 U/L [employer] AST [Catalytic activity/Vol] 15 U/L Normal 10 - 35 U/L [employer] Bilirubin [Mass/Vol] 0.4 mg/dL Normal 0.2 - 1 .2 mg/dL [employer] Calcium [Mass/Vol] 9.5 mg/dL Normal 8.6 - 10. 2 mg/dL [facility], [facility].; [facility]ne [facility]rend[employer] [facility]. Chloride [Moles/Vol] 98 mmol/L Normal 98 - 11 0 mmol/L [facility].; Rayne T[employer] [facility], [facility]. Cholesterol [Mass/Vol] 197 mg/dL Normal [facility], [facility].; Rayne T[employer] [facility], [employer]. Cholesterol in HDL [Mass/Vol] 73 mg/dL Normal [facility].; [facility], [facility]. Cholesterol in LDL [Mass/Vol] 96 mg/dL Normal [facility].; Rayne [employer]. CO2 [Moles/Vol] 29 mmol/L Normal 20 - 32 mmol/L [facility].; Rayne Trend[employer] [facility], [employer]. Creatinine [Mass/Vol] 0.60 mg/dL Normal 0.50 - 0.99 mg/dL [facility], [facility].; [employer], [employer]. GFR/1.73 sq M.predicted among non-blacks MDRD (S/P/Bld) [Vol rate/Area] 110 mL/min/{1.73_m2} Normal [facility].; [employer], [employer]. Glucose [Mass/Vol] 112 mg/dL Abnormal 65 - 99 mg/dL [facility], [facility].; [employer] Potassium [Moles/Vol] 3.9 mmol/L Normal 3.5 - 5.3 mmol/L [facility], [facility].; [employer], [employer]. Protein [Mass/Vol] 6.8 g/dL Normal 6.1 - 8.1 g/dL [facility], [facility].; [employer], [employer]. Sodium [Moles/Vol] 136 mmol/L Normal 135 - 146 mmol/L [facility], [facility].; [employer], [employer]. Triglyceride [Mass/Vol] 179 mg/dL Abnormal [facility].; [employer], [employer]. Urea nitrogen [Mass/Vol] 13 mg/dL Normal 7 - 25 mg/dL [facility], [facility].; [employer], [employer]. Laboratory - Hematology and Cell countson 06-23-2024 Basophils (Bld) [#/Vol] 0.021 10*3/uL Normal 0 - 200 {cells/uL} [facility], [facility].; Rayne [employer] [facility]. Basophils/100 WBC (Bld) 0.4 % Normal [facility].; [facility], [facility]. Eosinophils (Bld) [#/Vol] 0.08 10*3/uL Normal 15 - 500 {cells/uL} [facility], [facility].; [employer], [facility]. Eosinophils/100 WBC (Bld) 1.5 % Normal [facility].; [facility], [facility]. Erythrocyte distribution width (RBC) [Ratio] 12.7 % Normal 11.0 - 15.0 % [facility], [facility].; [employer]ne T[employer] [facility], [facility]. Hematocrit (Bld) [Volume fraction] 39.2 % Normal 35.0 - 45.0 % [facility], [facility].; [employer], [facility]. Hemoglobin (Bld) [Mass/Vol] 12.3 g/dL Normal 11.7 - 15.5 g/dL [facility].; [facility], [facility]. Lymphocytes (Bld) [#/Vol] 1.659 10*3/uL Normal 850 - 3900 {cells/uL} [facility].; [employer], [facility]. Lymphocytes/100 WBC (Bld) 31.3 % Normal [facility].; [employer], [facility]. MCH (RBC) [Entitic mass] 29.1 pg Normal 27.0 - 33.0 pg [facility].; [employer], [facility]. MCHC (RBC) [Mass/Vol] 31.4 g/dL Abnormal 32.0 - 36.0 g/dL [facility].; [employer], [facility]. MCV (RBC) [Entitic vol] 92.9 fL Normal 80.0 - 100.0 fL [employer]ne T[employer] [facility].; [employer], [facility]. Monocytes (Bld) [#/Vol] 0.408 10*3/uL Normal 200 - 950 {cells/uL} [employer], [facility].; [employer] Monocytes/100 WBC (Bld) 7.7 % Normal [facility].; [employer], [facility]. Neutrophils (Bld) [#/Vol] 3.132 10*3/uL Normal 1500 - 7800 {cells/uL} [employer]. Neutrophils/100 WBC (Bld) 59.1 % Normal [employer].; [employer]. Platelet mean volume (Bld) [Entitic vol] 10.4 fL Normal 7.5 - 12.5 fL [employer].; [employer]. Platelets (Bld) [#/Vol] 282 10*3/uL Normal 140 - 400 [employer].; [employer]. RBC (Bld) [#/Vol] 4.22 10*6/uL Normal 3.80 - 5.10 {Million/u L} [employer].; [employer]. WBC (Bld) [#/Vol] 5.3 10*3/uL Normal 3.8 - 10.8 [employer].; [employer]. No Panel Informationon 06-23 BUN/CREATININE RATIO SEE NOTE: Normal 6 - 22 WHOOP.; [employer]. CHOL/HDLC RATIO 2.7 Normal [employer].; [employer]. GLOBULIN 2.5 Normal 1.9 - 3.7 [employer].; [employer]. NON HDL CHOLESTEROL 124 Normal [facility] [employer].; [employer]. [facility] ([id number]) 1975 F Date Time Provider Department 06/15/24 LAURITA JAMISON During your visit today, we recorded the following information about you: Laurita Jamison APRN.[place] 06/15/2024 3:33 PM Signed Can we contact [facility] to see if they have any labs results since 05/29. Pt was to get labs done there and I haven't receive anything. Laurita Jamison APRN.Leonor Bryant RN 06/15/2024 3:48 PM Signed Request faxed. VICK Cruz Jennifer, RN 06/16/2024 10:02 AM Signed No lab results found per [facility]. Note in patient's chart states to [...] have been reviewed today /07/13/2007 Ashley Grover [employer]A COLUMN OPERATOR Problem List As Of Date 06/15/2024 Noted [...] Encounter Status:Closed by LAURITA JAMISON on 06/22/[address] [facility] CNOVon 05-29-2024 CNOV Office Visit (OBGYWM ) LILLIE HOLLAND ([id number]) 1975 F Date Time Provider Department 05/29/24 2:00 PM LAURITA JAMISON OBGYWM During your visit today, we recorded the following information about you: Blood pressure Weight 122/70 74.4 kg Laurita Jamison APRN.FIBREGLASS LAY UP WORKER 05/29/2024 3:01 PM Signed Lillie Holland is a 48 year old female who presents for medication follow up HPI: she has not notice a difference with the estrace decreasing to hot flashes. She also is concerned about the unexplained weight gain, fatigue, and urinary urgency. OB History T2 L2 SAB0 IAB0 Ectopic0 Multiple0 Live Births2 Breaker Boss History LMP: 01/09/2008, Hysterectomy Age at Menarche: Age at First : Age at Menopause: Breaker Boss History Comments: Sexual Activity: Yes; Male Contraception: [...] D 25 HYDROXY Having labs done at [facility] Will notify patient of test results. Laurita Jamison APRN.[facility] Medical Decision Making: Problems: Moderate: New problem [...] gain [ (more content not included)... Normal [facility] CNOVon 03-27-2024 CNOV Office Visit (OBGYWM ) LILLIE HOLLAND ([id number]) 1975 F Date Time Provider Department 03/27/24 10:30 AM LAURITA JAMISON OBGYWM During your visit today, we recorded the following information about you: Blood pressure Weight Height 138/80 71 kg 1.6 m Laurita Jamison APRN.CNP 03/27/2024 11:43 AM Signed Specialist Employee Labor Relations offered: Patient declines. Lillei is a 48 year old who presents for an annual gynecologic exam with complaints, menopausal symptoms and bladder issues . 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 Comments: Sexual Activity: Yes; Male Contraception: [...] wisdom teeth PAST SURGICAL HISTORY OF 06/07/2017 DURGA/BSO per Dr Blair FAMILY HISTORY Problem Relation [...] and current medication updated:Yes EXAM: Ht 5' 3" (1.60m) Wt 156 lb 9.6 oz (71.0kg) [...] external genitalia normal, normal Bartholin's glands, urethra, [place]'s glands, no vulvar lesions, good vaginal support, [...] Z12.31 - 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 Normal [facility] ANAon 07-08-2023 ANTI-NUCLEAR ANTIBODY (LOLITA) <1:40 Normal <1:40 [facility] Comment on above: Performed By: #### 4 [id number], [id number] #### [address] C-REACTIVE PROTEIN (INFLAMMA TORY)on 07-08-2023 CRP [Mass/Vol] mg/L Normal <=9.9 [facility] Comment on above: Performed By: #### 4 [id number], [id number], [id number], [id number], [id number], [id number], [id number] #### [address] [address] CBC AND DIFFERENTIALon 07-08 ABSOLUTE BASOPHIL 0.0 x10*3/uL Normal 0.0-0.1 [facility] Comment on above: Performed By: #### 4 [id number], [id number] #### [place] [address] [place] [address] [place] ABSOLUTE EOSINOPHIL 0.1 x10*3/uL Normal 0.1-0.3 [facility] Comment on above: Performed By: #### 4 [id number], [id number] #### [address] [address] [facility] ABSOLUTE IMMATURE GRANULOCYTES 0.0 x10*3/uL Normal 0.0-0.1 [facility] Comment on above: Performed By: #### 4 [id number], [id number] #### [address] ABSOLUTE LYMPH 1.5 x10*3/uL Normal 1.2-3.3 [facility] Comment on above: Performed By: #### 4 [id number], [id number] #### [address] ABSOLUTE MONO 0.4 x10*3/uL Normal 0.2-0.6 [facility] Comment on above: Performed By: #### 4 [id number], [id number] #### [address] ABSOLUTE NEUTROPHIL 5.1 x10*3/uL Normal 2.4-6.6 [facility] Comment on above: Performed By: #### 4 [id number], 19551012 #### [address] Basophils/100 WBC (Bld) 0.3 % Normal [facility] Comment on above: Performed By: #### 4 [id number], [id number] #### [address] Eosinophils/100 WBC (Bld) 1.3 % Normal [facility] Comment on above: Performed By: #### 4 [id number], [id number] #### [address] Erythrocyte distribution width (RBC) [Ratio] 12.3 % Normal 11.5-14.5 [facility] Comment on above: Performed By: #### 4 8736053, [id number] #### [address] Hematocrit (Bld) [Volume fraction] 42.4 % Normal 33.6-46.8 [facility] Comment on above: Performed By: #### 4 [id number], [id number] #### [address] Hemoglobin (Bld) [Mass/Vol] 13.6 g/dL Normal 11.7-15.8 [facility] Comment on above: Performed By: #### 4 [id number], [id number] #### [address] Immature granulocytes/100 WBC (Bld) 0.3 % Normal [facility] Comment on above: Performed By: #### 4 [id number], [id number] #### [address] Lymphocytes/100 WBC (Bld) 21.1 % Normal [facility] Comment on above: Performed By: #### 4 [id number], [id number] #### [address] MCH (RBC) [Entitic mass] 29.3 pg Normal 27.5-32.3 [facility] Comment on above: Performed By: #### 4 [id number], [id number] #### [address] MCHC (RBC) [Mass/Vol] 32.1 g/dL Normal 30.7-35.5 [facility] Comment on above: Performed By: #### 4 [id number], 46902561 #### [address] MCV (RBC) [Entitic vol] 91.4 fL Normal 80.2-99 [facility] Comment on above: Performed By: #### 4 [id number], [id number] #### [address] Monocytes/100 WBC (Bld) 5.7 % Normal [facility] Comment on above: Performed By: #### 4 9997774, 87932051 #### [address] Neutrophils/100 WBC (Bld) 71.3 % Normal [facility] Comment on above: Performed By: #### 4 [id number], [id number] #### [address] NUCLEATED RED BLOOD CELLS AUTO 0.0 % Normal 0.0-1.0 [facility] Comment on above: Performed By: #### 4 1109759, [id number] #### [address] PLATELET COUNT 224 x10*3/uL Normal 150-400 [facility] Comment on above: Performed By: #### 4 1521356, 03812751 #### [address] RED BLOOD CELL COUNT 4.64 x10*6/uL Normal 3.60-5.20 [facility] Comment on above: Performed By: #### 4 [id number], [id number] #### [address] WHITE BLOOD CELLS 7.2 x10*3/uL Normal 4.3-10.3 [facility] Comment on above: Performed By: #### 4 6984352, [id number] #### [address] CCP ANTIBODIES IGG/IGAon CCP IGG/IGA ABS 5 units Normal 0-19 [facility] Comment on above: Order Comment: Perfo rmed at: 01 - [facility] [id number] Filling Winder: Martin Fam PhD, Phone: [phone] Result Comment: Nega tive <20 Weak positive 20 - 39 Moderate positive 40 - 59 Strong positive >59 Performed By: #### 4 [id number] #### [facility] CKon 07-08-2023 CK [Catalytic activity/Vol] 39 U/L Normal 0-164 [facility] Comment on above: Performed By: #### 4 [id number], 08092834, 40664108, 05958559, 02137751, 89171117, 23547831 #### [address] CREATININE, SERUMon 07-08-20 23 Creatinine [Mass/Vol] 0.59 mg/dL Normal 0.52-1.04 [facility] Comment on above: Performed By: #### 4 1435453, 43684263, 95529735, 68131358, 48009400, 70938314, 03004318 #### [address] GLOMERULAR FILTRATION RATE ML/MIN/1.73 SQ M.PREDICTED >90.0 Normal >=60.0 [facility] Comment on above: Result Comment: eGFR calculation [...] Kidney Int Suppl.2013;3:1-150 Performed By: #### 4 0997769, 64795711, 98184164, 81256188, 19326206, 68970216, 47429042 #### [address] RHEUMATOID FACTORon 07-08-20 23 RHEUMATOID FACTOR <8.6 Normal <=12.0 [facility] Comment on above: Performed By: #### 4 [id number], 50851336, 96927437, 75271026, 47745176, 31331113, 89184078 #### [address] SEDIMENTATION RATEon 023 SED RATE 5 mm/hr Normal 0-20 [facility] Comment on above: Performed By: #### 4 9686810, 06598935 #### [address] TSHon 07-08-2023 TSH 1.310 uIU/mL Normal 0.465-4.68 0 [facility] Comment on above: Performed By: #### 4 6296255, 96196575, 82237925, 77594392, 48768646, 64934533, 84830142 #### [address] VITAMIN B12on 07-08-2023 Cobalamin (Vitamin B12) [Mass/Vol] 612 pg/mL Normal 239-931 [facility] Comment on above: Performed By: #### 4 [id number], 23069805, 06029105, 38619281, 47649920, 09010862, 27269775 #### [place] [address] VITAMIN D 25 HYDROXYon 07-08 VITAMIN D 25 HYDROXY 23.6 ng/mL Normal [facility] Comment on above: Result Comment: Reid grant Range: Deficiency: <20 ng/mL Insufficiency: 21-29 ng/mL Optimal Level: >=30 ng/mL Possible Toxicity: >80 ng/mL 80 ng/mL is the lowest reported level associated with toxicity in patients without primary hyperthyroidism who have normal renal function. Performed By: #### 4 1368230, 54469415, 55637408, 25774254, 10863280, 05418151, 37053274 #### [place] [address] Laboratory - Chemistry and C hemistry - challengeon 06-11-2023 Natriuretic peptide B (Bld) [Mass/Vol] 43 pg/mL Normal [facility], [facility].; [facility], [facility]. Laboratory - Chemistry and C hemistry - challengeon 05-20-2023 Albumin [Mass/Vol] 4.6 g/dL Normal 3.6 - 5.1 g/dL [facility], [facility].; [employer] [facility], [facility]. Albumin/Globulin [Mass ratio] 1.8 {ratio} Normal 1.0 - 2.5 [facility], [facility].; [employer]ne [employer] [facility] ALP [Catalytic activity/Vol] 111 U/L Normal 31 - 125 U/L [facility], [facility].; [facility], [facility]. ALT [Catalytic activity/Vol] 13 U/L Normal 6 - 29 U/L [facility], [facility].; [employer] [facility], [facility]. AST [Catalytic activity/Vol] 14 U/L Normal 10 - 35 U/L [facility], [facility].; [employer] [facility], [facility]. Bilirubin [Mass/Vol] 0.5 mg/dL Normal 0.2 - 1 .2 mg/dL [facility], [facility].; [employer] [facility] Calcium [Mass/Vol] 9.5 mg/dL Normal 8.6 - 10. 2 mg/dL [facility], [facility].; [employer] [facility] Chloride [Moles/Vol] 104 mmol/L Normal 98 - 11 0 mmol/L [facility].; [employer]ne [employer] [facility]. Cholesterol [Mass/Vol] 236 mg/dL Abnormal [facility].; [employer] [facility], [facility]. Cholesterol in HDL [Mass/Vol] 63 mg/dL Normal [facility].; [employer] [facility], [employer]. Cholesterol in LDL [Mass/Vol] 131 mg/dL Abnormal [facility].; [employer] [facility], [employer]. CO2 [Moles/Vol] 26 mmol/L Normal 20 - 32 mmol/L [facility].; [employer], [facility]. Creatinine [Mass/Vol] 0.53 mg/dL Normal 0.50 - 0.99 mg/dL [facility].; [employer] [facility], [facility]. GFR/1.73 sq M.predicted among non-blacks MDRD (S/P/Bld) [Vol rate/Area] 114 mL/min/{1.73_m2} Normal [facility].; [employer], [employer]. Glucose [Mass/Vol] 93 mg/dL Normal 65 - 99 mg/dL [facility].; [employer], [employer]. Potassium [Moles/Vol] 4.2 mmol/L Normal 3.5 - 5.3 mmol/L [facility].; [employer], [employer]. Protein [Mass/Vol] 7.1 g/dL Normal 6.1 - 8.1 g/dL [employer] [facility], [facility].; [employer], [employer]. Sodium [Moles/Vol] 138 mmol/L Normal 135 - 146 mmol/L [facility].; [employer], [employer]. Triglyceride [Mass/Vol] 294 mg/dL Abnormal [employer]ne [employer] [facility].; [employer], [employer]. Urea nitrogen [Mass/Vol] 16 mg/dL Normal 7 - 25 mg/dL [employer] [employer] [facility].; [employer], [facility]. No Panel Informationon 05-20 BUN/CREATININE RATIO NOT APPLICABLE Normal 6 - 22 [facility].; [employer], [employer]. CHOL/HDLC RATIO 3.7 Normal [employer] [employer] [facility].; [employer] GLOBULIN 2.5 Normal 1.9 - 3.7 [facility], [facility].; [employer] [facility], [facility]. NON HDL CHOLESTEROL 173 Abnormal [facility], [facility].; [employer] [facility], [facility]. Laboratoryon 06-19-2019 A. alternata IgE RAST class (S) 0 Normal [facility], [facility].; [employer] [facility], [facility]. Laboratory - Allergyon 06-19 A. alternata IgE Qn (S) <0.10 Normal [facility], [facility].; [employer] [facility], [facility]. A. fumigatus IgE Qn (S) <0.10 Normal [facility], [facility].; [employer] [facility], [facility]. A. fumigatus IgE RAST class (S) 0 Normal [facility], [facility].; Rayne Trendmeon [facility], [facility]. Chadian house dust mite IgE Qn (S) <0.10 Normal [facility], [facility].; [facility] Trendmeon [facility], [facility]. Chadian house dust mite IgE RAST class (S) 0 Normal [facility], [facility].; [facility] Trendmeon [facility], [facility]. B[place] grass IgE Qn (S) <0.10 Normal [facility], [facility].; [facility] Trend[facility], [facility]. [place] grass IgE RAST class (S) 0 Normal [facility], [facility].; [facility], [facility]. Boxelder IgE Qn (S) <0.10 Normal [facility], [facility].; [facility] Trendmeon [facility], [facility]. Boxelder IgE RAST class (S) 0 Normal [facility], [facility].; [facility] Trendmeon [facility], [facility]. C. herbarum IgE Qn (S) <0.10 Normal [facility], [facility].; [facility], [facility]. C. herbarum IgE RAST class (S) 0 Normal [facility], [facility].; [facility] Trend[facility], [facility]. [place] Zap Pollen IgE Qn (S) <0.10 Normal [facility], [facility].; [facility] Trendmeon [facility], [facility]. [place] Zap Pollen IgE RAST class (S) 0 Normal [facility], [facility].; [facility], [facility] Cat dander IgE Qn (S) <0.10 Normal [facility], [facility].; [facility], [facility] Cat dander IgE RAST class (S) 0 Normal [facility], [facility].; [facility], [facility] Cockroach IgE Qn (S) <0.10 Normal [facility], [facility].; [facility], [facility] Cockroach IgE RAST class (S) 0 Normal [facility], [facility].; [facility], [facility] Common Pigweed IgE Qn (S) <0.10 Normal [facility], [facility].; [facility], [facility] Common Pigweed IgE RAST class (S) 0 Normal [facility], [facility].; [facility], [facility] Common Ragweed IgE Qn (S) <0.10 Normal [facility], [facility].; [facility], [facility] Common Ragweed IgE RAST class (S) 0 Normal [facility], [facility].; [facility], [facility] [place] IgE Qn (S) <0.10 Normal [facility], [facility].; [facility], [facility] [place] IgE RAST class (S) 0 Normal [facility], [facility].; [facility], [facility] Dog dander IgE Qn (S) <0.10 Normal [facility], [facility].; [facility], [facility] Dog dander IgE RAST class (S) 0 Normal [facility], [facility].; [facility], [facility] house dust mite IgE Qn (S) <0.10 Normal [facility], [facility].; [facility], [facility] house dust mite IgE RAST class (S) 0 Normal [facility], [facility].; [facility], [facility] Cuenca Plane IgE Qn (S) <0.10 Normal [facility], [facility].; [facility], [facility] Cuenca Plane IgE RAST class (S) 0 Normal [facility], [facility].; [facility], [facility] Mountain Juniper IgE Qn (S) <0.10 Normal [facility], [facility].; [facility], [facility] Mountain Juniper IgE RAST class (S) 0 Normal [facility], [facility].; [facility], [facility] Mouse urine proteins IgE Qn (S) <0.10 Normal [facility], [facility].; [facility], [facility] Mouse urine proteins IgE RAST class (S) 0 Normal [facility], [facility].; [facility], [facility] P. notatum IgE Qn (S) <0.10 Normal [facility], [facility].; [facility], [facility] P. notatum IgE RAST class (S) 0 Normal [facility], [facility].; [facility], [facility] Pecan or [place] Tree IgE Qn (S) <0.10 Normal [facility], [facility].; [facility], [facility] Pecan or [place] Tree IgE RAST class (S) 0 Normal [facility], [facility].; [facility], [facility] Saltwort IgE Qn (S) <0.10 Normal [facility], [facility].; [facility], [facility]. Saltwort IgE RAST class (S) 0 Normal [facility], [facility].; [facility], [facility] Sheep [place] IgE Qn (S) <0.10 Normal [facility], [facility].; [facility], [facility]. Sheep [place] IgE RAST class (S) 0 Normal [facility], [facility].; [facility], [facility] Silver Birch IgE Qn (S) <0.10 Normal [facility], [facility].; [facility], [facility]. Silver Birch IgE RAST class (S) 0 Normal [facility], [facility].; [facility], [facility] En IgE Qn (S) <0.10 Normal [facility], [facility].; [facility], [facility] En IgE RAST class (S) 0 Normal [facility], [facility].; [facility], [facility] White Andrew IgE Qn (S) <0.10 Normal [facility], [facility].; [facility], [facility] White Andrew IgE RAST class (S) 0 Normal [facility], [facility].; [facility], [facility] White Elm IgE Qn (S) <0.10 Normal [facility], [facility].; [facility], [facility] White Elm IgE RAST class (S) 0 Normal [facility], [facility].; [facility] White mulberry IgE Qn (S) <0.10 Normal [facility], [facility].; [facility], [facility] White mulberry IgE RAST class (S) 0 Normal [facility].; [facility]. [place] IgE Qn (S) <0.10 Normal [facility].; [employer]ne [employer], [facility]. [place] IgE RAST class (S) 0 Normal [facility].; Rayne [employer], [employer]. Laboratory - Chemistry and C hemistry - challengeon 06-19-2019 IgE Qn 17 {KU/L} Normal [facility].; [employer]. Laboratory - Chemistry and C hemistry - challengeon 11-29-2018 Albumin [Mass/Vol] 4.2 g/dL Normal 3.6 - 5.1 g/dL [facility].; [facility] Trend[facility], [facility]. Albumin/Globulin [Mass ratio] 1.9 {ratio} Normal 1.0 - 2.5 [facility].; [employer]. ALP [Catalytic activity/Vol] 101 U/L Normal 33 - 115 U/L [facility].; [facility] Trendmeon [facility], [employer]. ALT [Catalytic activity/Vol] 18 U/L Normal 6 - 29 U/L [facility].; [employer]ne [employer], [employer]. AST [Catalytic activity/Vol] 15 U/L Normal 10 - 30 U/L [facility].; [employer]ne [employer], [employer]. Bilirubin [Mass/Vol] 0.3 mg/dL Normal 0.2 - 1 .2 mg/dL [facility].; [facility] Trend[facility], [facility]. Calcium [Mass/Vol] 9.0 mg/dL Normal 8.6 - 10. 2 mg/dL [facility].; Rayne [employer], [facility]. Carcinoembryonic Ag [Mass/Vol] 0.9 ng/mL Normal 0.0 - 2.4 ng/mL [facility].; Rayne [employer], [facility]. Chloride [Moles/Vol] 105 mmol/L Normal 98 - 11 0 mmol/L [facility].; [employer]ne [employer], [employer]. CO2 [Moles/Vol] 30 mmol/L Normal 20 - 32 mmol/L [facility].; Rayne [employer], [employer]. Creatinine [Mass/Vol] 1.02 mg/dL Normal 0.50 - 1.10 mg/dL [facility].; Rayne [employer], [facility]. GFR/1.73 sq M.predicted among blacks MDRD (S/P/Bld) [Vol rate/Area] 77 {ML/MIN/1.73M2} Normal [facility].; [facility] Trend[facility], [facility]. GFR/1.73 sq M.predicted MDRD (S/P/Bld) [Vol rate/Area] 67 {ML/MIN/1.73M2} Normal Rayne Conjecta [facility].; [employer], [employer]. Globulin (S) [Mass/Vol] 2.2 g/dL Normal 1.9 - 3.7 g/dL [facility].; [employer], [employer]. Glucose [Mass/Vol] 97 mg/dL Normal 65 - 99 mg/dL Rayne Conjecta [facility].; [employer], [employer]. Potassium [Moles/Vol] 4.3 mmol/L Normal 3.5 - 5.3 mmol/L Rayne Conjecta [facility].; [employer], [employer]. Protein [Mass/Vol] 6.4 g/dL Normal 6.1 - 8.1 g/dL [employer].; [employer], [employer]. Sodium [Moles/Vol] 143 mmol/L Normal 135 - 146 mmol/L Rayne Conjecta [facility].; [employer], [employer]. Urea nitrogen [Mass/Vol] 14 mg/dL Normal 7 - 25 mg/dL [employer].; [employer], [employer]. Urea nitrogen/Creatinine [Mass ratio] 13.6 mg/mg Normal 6 - 22 [employer].; [employer]. Laboratory - Hematology and Cell countson 11-29-2018 Basophils (Bld) [#/Vol] 10 {Cells}/uL Normal 0 - 200 {Cells}/uL [employer].; [employer] Basophils/100 WBC (Bld) 0 % Normal 0 - 1 % [employer].; [employer], [employer]. Eosinophils (Bld) [#/Vol] 110 {Cells}/uL Normal 15 - 500 {Cells}/uL [employer].; [facility]. Eosinophils/100 WBC (Bld) 2 % Normal 0 - 4 % [facility].; [facility]. Erythrocyte distribution width (RBC) [Ratio] 13.4 % Normal 11.0 - 15.0 % [facility], [facility].; [facility] Trend[facility], [facility]. ESR (Bld) [Velocity] 9 mm/h Normal 0 - 20 mm/h [facility].; [facility], [facility] Hematocrit (Bld) [Volume fraction] 40.1 % Normal 35.0 - 45.0 % [facility].; [facility], [facility] Hemoglobin (Bld) [Mass/Vol] 13.2 g/dL Normal 11.7 - 15.5 g/dL [facility].; [facility], [facility]. Lymphocytes (Bld) [#/Vol] 1380 {Cells}/uL Normal 850 - 3900 {Cells}/uL [facility].; Rayne Conjecta [facility]. Lymphocytes/100 WBC (Bld) 24 % Normal 12 - 47 % [facility].; [facility]. MCH (RBC) [Entitic mass] 29.6 pg Normal 27.0 - 33.0 PG [facility].; [facility] Trendmeon [facility], [facility]. MCHC (RBC) [Mass/Vol] 33.0 g/dL Normal 32.0 - 36.0 g/dL [facility].; Rayne [employer], [facility]. MCV (RBC) [Entitic vol] 89.7 fL Normal 80.0 - 100.0 fL [facility].; Rayne Conjecta [facility]. Monocytes (Bld) [#/Vol] 390 {Cells}/uL Normal 200 - 950 {Cells}/uL [facility].; [employer]ne [employer], [employer]. Monocytes/100 WBC (Bld) 7 % Normal 4 - 12 % [facility].; [facility] Trendmeon [facility], [facility]. Neutrophils (Bld) [#/Vol] 3990 {Cells}/uL Normal 1500 - 7800 {Cells}/uL [facility].; Rayne [employer], [facility]. Neutrophils/100 WBC (Bld) 67 % Normal 40 - 75 % [facility], [facility].; Rayne [employer], [facility]. Platelet mean volume (Bld) [Entitic vol] 9.8 fL Normal 7.5 - 12.5 fL [facility], [facility].; [employer] Platelets (Bld) [#/Vol] 261 10*3/uL Normal 140 - 400 10*3/uL [facility], [facility].; [facility] Trendmeon [facility], [facility]. RBC (Bld) [#/Vol] 4.47 10*6/uL Normal 3.80 - 5.10 10*6/uL [facility], [facility].; Rayne [employer], [facility]. WBC (Bld) [#/Vol] 5.9 10*3/uL Normal 3.8 - 10.8 10*3/uL [facility] [employer], [facility].; Rayne [employer], [facility]. Laboratory - Hematology and Cell countson 05-27-2018 Basophils (Bld) [#/Vol] 0.00 {3/UL} Normal 0.00 - 0.10 {3/UL} [facility].; Rayne [employer], [facility]. Basophils/100 WBC (Bld) 0.3 % Normal 0.0 - 2.0 % [facility].; Rayne [employer], [facility]. CBC W Auto Differential panel (Bld) CBC Normal [facility].; Rayne [employer] Eosinophils (Bld) [#/Vol] 0.10 {3/UL} Normal 0.00 - 0.50 {3/UL} [facility], [facility].; [employer] Eosinophils/100 WBC (Bld) 1.4 % Normal 0.0 - 7.0 % [facility].; [employer], [facility]. Erythrocyte distribution width (RBC) [Ratio] 12.6 % Normal 12.0 - 15.6 % [facility] Trendme[facility], [facility].; [employer] ESR (Bld) [Velocity] 8 mm/h Normal 0 - 30 mm/h [facility], [facility].; Rayne [employer], [facility]. Hematocrit (Bld) [Volume fraction] 40.9 % Normal 34.0 - 46.0 % [facility].; [employer] Hemoglobin (Bld) [Mass/Vol] 13.7 g/dL Normal 12.0 - 16.0 g/dL [employer].; [employer], [employer]. Lymphocytes (Bld) [#/Vol] 2.30 {3/UL} Normal 0.80 - 2.80 {3/UL} [employer].; [employer], [employer]. Lymphocytes/100 WBC (Bld) 23.7 % Normal 20.0 - 45.0 % [employer].; [employer] MCH (RBC) [Entitic mass] 31 pg Normal 27 - 33 pg [employer].; [employer], [employer]. MCHC (RBC) [Mass/Vol] 34 {X10_3} Normal 32 - 3 6 {X10_3} [employer], [employer].; [employer], [employer]. MCV (RBC) [Entitic vol] 91 fL Normal 80 - 99 fL [employer].; [employer], [employer]. Monocytes (Bld) [#/Vol] 0.60 {3/UL} Normal 0.20 - 1.00 {3/UL} [employer], [employer].; [employer], [employer]. Monocytes/100 WBC (Bld) 6.5 % Normal 0.0 - 10.0 % [employer].; [employer], [employer]. Morphology Gordon (Bld) [Interp] N/A Normal [employer].; [employer], [employer]. Neutrophils (Bld) [#/Vol] 6.50 {3/UL} Normal 1.50 - 7.10 {3/UL} [employer].; [employer] Neutrophils/100 WBC (Bld) 68.1 % Normal 46.0 - 76.0 % [employer].; [employer], [employer]. Platelet mean volume (Bld) [Entitic vol] 9.9 fL Normal 6.6 - 10.5 fL [employer], [employer].; [employer] Platelets (Bld) [#/Vol] 232 {3/UL} Normal 150 - 450 {3/UL} [employer].; [employer]. RBC (Bld) [#/Vol] 4.50 {6/UL} Normal 4.10 - 5.30 {6/UL} [employer].; Rayne Trendmeon [facility], [employer]. WBC (Bld) [#/Vol] 9.6 {3/UL} Normal 4.5 - 10.8 {3/UL} [employer].; [employer]. Laboratory - Serology - non- microon 05-27-2018 Nuclear Ab IA Ql (S) LOLITA WITH REFLEX TO TITER AND PATTERN[QU] Normal [facility].; [employer], [employer]. No Panel Informationon 05-27 MANUAL DIFF N/A Normal [employer].; [employer]. Laboratory - Chemistry and C hemistry - challengeon 02-10-2017 Anion gap [Moles/Vol] 10 mmol/L Normal 10 - 2 0 mmol/L [employer].; [employer]. Basic metabolic 2000 panel BMP with eGFR Normal Rayne Conjecta [facility].; [employer], [employer]. Calcium [Mass/Vol] 9.4 mg/dL Normal 8.6 - 10. 2 mg/dL [employer].; [employer], [employer]. Chloride [Moles/Vol] 102 mmol/L Normal 98 - 10 7 mmol/L [facility].; [employer], [employer]. CO2 [Moles/Vol] 31.0 mmol/L Normal 21.0 - 31.0 mmol/L [facility].; [employer], [employer]. Creatinine [Mass/Vol] 0.6 mg/dL Normal 0.6 - 1.2 mg/dL [facility] Trendmeon [facility], [facility].; [employer], [facility]. GFR/1.73 sq M.predicted among blacks MDRD (S/P/Bld) [Vol rate/Area] mL/min/{1.73_m2} Normal 60 - 999 {ML/MINUTE } Rayne Trendmeon [facility], [facility].; [employer] GFR/1.73 sq M.predicted MDRD (S/P/Bld) [Vol rate/Area] mL/min/{1.73_m2} Normal 60 - 999 {ML/MINUTE } [facility].; [employer]. Glucose [Mass/Vol] 70 mg/dL Abnormal 74 - 106 mg/dL [employer].; [employer]ne [employer], [employer]. Potassium [Moles/Vol] 3.8 mmol/L Normal 3.5 - 5.1 mmol/L [facility].; [employer], [employer]. Sodium [Moles/Vol] 139 mmol/L Normal 136 - 145 mmol/L [employer].; [employer]. Urea nitrogen [Mass/Vol] 11 mg/dL Normal 6 - 20 mg/dL [employer].; [employer]. No Panel Informationon 02-10 AGE 41 {years} Normal [employer].; [employer], [employer]. Laboratory - Chemistry and C hemistry - challengeon 01-04-2017 Albumin [Mass/Vol] 4.5 g/dL Normal 3.4 - 4.8 g/dL [employer].; [employer]. Albumin [Mass/Vol] 1.9 g/dL Abnormal 0.9 - 1.6 [employer].; [employer], [employer]. ALP [Catalytic activity/Vol] 75 U/L Normal 38 - 126 U/L [employer].; [employer], [employer]. ALT [Catalytic activity/Vol] 10 U/L Normal 8 - 35 U/L [employer].; [employer], [employer]. ALT No additional P-5'-P [Catalytic activity/Vol] 10 U/L Normal 8 - 35 U/L [employer].; [employer], [employer]. Anion gap [Moles/Vol] 10 mmol/L Normal 10 - 2 0 mmol/L [employer].; [employer], [employer]. AST [Catalytic activity/Vol] 13 U/L Normal 13 - 39 U/L [employer].; [employer], [employer]. Bilirubin [Mass/Vol] 0.8 mg/dL Normal 0.0 - 1 .5 mg/dL [employer].; [employer], [employer]. Calcium [Mass/Vol] 9.4 mg/dL Normal 8.6 - 10. 2 mg/dL [facility], [facility]. Chloride [Moles/Vol] 106 mmol/L Normal 98 - 10 7 mmol/L [facility], [facility]. Cholesterol [Mass/Vol] 187 mg/dL Normal 0 - 200 mg/dL [facility], [facility] Cholesterol in HDL [Mass or moles/Vol] 69 mg/dL Abnormal 40 - 60 mg/dL [facility], [facility] Cholesterol in LDL [Mass/Vol] 100 mg/dL Normal 0 - 129 mg/dL [facility], [facility] Cholesterol.total/Cho lesterol in HDL [Mass ratio] 2.7 {ratio} Normal 0.0 - 5.0 [facility].; [facility], [facility] CO2 [Moles/Vol] 28.0 mmol/L Normal 21.0 - 31.0 mmol/L [facility].; [facility], [facility]. Comprehensive metabolic 2000 panel CMP with eGFR Normal [facility].; [facility], [facility] Creatinine [Mass/Vol] 0.6 mg/dL Normal 0.6 - 1.2 mg/dL [facility], [facility].; [facility], [facility]. GFR/1.73 sq M.predicted among blacks MDRD (S/P/Bld) [Vol rate/Area] 133 {ML/MINUTE} Normal 60 - 999 {ML/MINUTE } [facility], [facility].; [facility], [facility]. GFR/1.73 sq M.predicted MDRD (S/P/Bld) [Vol rate/Area] 110 {ML/MINUTE} Normal 60 - 999 {ML/MINUTE } [facility], [facility].; [facility], [facility]. Globulin (S) [Mass/Vol] 2.4 g/dL Normal 1.5 - 3.8 g/dL [facility], [facility].; [facility], [facility]. Glucose [Mass/Vol] 83 mg/dL Normal 74 - 106 mg/dL [facility], [facility].; [facility], [facility] Lipid 1996 panel LIPID PROFILE Normal [facility].; [facility], [facility]. Potassium [Moles/Vol] 6.3 mmol/L Abnormal 3.5 - 5.1 mmol/L [facility], [facility]. Protein [Mass/Vol] 6.9 g/dL Normal 6.4 - 8.3 g/dL [facility], [facility]. Sodium [Moles/Vol] 138 mmol/L Normal 136 - 145 mmol/L [facility]. Triglyceride [Mass/Vol] 88 mg/dL Normal 0 - 150 mg/dL [facility].; [facility], [facility]. TSH Qn 0.91 m[IU]/L Normal 0.34 - 5.60 {uIU/ml} [facility].; [facility]ne Trendmeon [facility], [facility]. Urea nitrogen [Mass/Vol] 8 mg/dL Normal 6 - 20 mg/dL [facility].; [facility] Trend[facility]on [facility], [facility]. Urea nitrogen/Creatinine [Mass ratio] 13 {ratio} Normal 0 - 30 {ratio} [facility].; [facility] No Panel Informationon 01-04 AGE 41 {years} Normal [facility]; [facility]. Laboratory - Chemistry and C hemistry - challengeon 05-24-2014 Basic metabolic 2000 panel BMP with eGFR Normal [facility].; [facility] Trend[facility], [facility] Calcium [Mass/Vol] 9.3 mg/dL Normal 8.6 - 10. 2 mg/dL [facility], [facility].; [facility]ne Trend[facility], [facility]. Chloride [Moles/Vol] 105 mmol/L Normal 98 - 10 7 mmol/L [facility].; [facility] Trend[facility], [facility]. Cholesterol [Mass/Vol] 155 mg/dL Normal 0 - 200 mg/dL [facility].; [facility], [facility] [facility] Cholesterol in HDL [Mass or moles/Vol] 48 mg/dL Normal 40 - 60 mg/dL [facility], [facility].; Rayne Trendmeon [facility], [facility]. Cholesterol in LDL [Mass/Vol] 87 mg/dL Normal 0 - 129 mg/dL [facility]. Cholesterol.total/Cho lesterol in HDL [Mass ratio] 3.2 {ratio} Normal 0.0 - 5.0 [facility].; Rayne Trendmeon [facility], [facility]. CO2 [Moles/Vol] 24.0 mmol/L Normal 13.0 - 29.0 mmol/L [facility].; Rayne Trendmeon [facility], [facility]. Creatinine [Mass/Vol] 0.6 mg/dL Normal 0.6 - 1.2 mg/dL [facility].; Rayne Trend[facility]on [facility], [facility]. GFR/1.73 sq M.predicted among blacks MDRD (S/P/Bld) [Vol rate/Area] mL/min/{1.73_m2} Normal 60 - 999 {ML/MINUTE } [facility].; [facility], [facility]. GFR/1.73 sq M.predicted MDRD (S/P/Bld) [Vol rate/Area] mL/min/{1.73_m2} Normal 60 - 999 {ML/MINUTE } [facility].; [facility]. Glucose [Mass/Vol] 85 mg/dL Normal 74 - 106 mg/dL [facility].; Ray[facility] Trendmeon [facility], [facility]. Lipid 1996 panel LIPID PROFILE Normal [facility]; Ray[facility] Trend[facility]on [facility], [facility] Potassium [Moles/Vol] 3.7 mmol/L Normal 3.5 - 5.1 mmol/L [facility].; Rayne Trendmeon [facility], [facility]. Sodium [Moles/Vol] 136 mmol/L Normal 136 - 145 mmol/L [facility].; Rayne Trendmeon [facility], [facility]. Triglyceride [Mass/Vol] 100 mg/dL Normal 0 - 150 mg/dL [facility].; Rayne [employer], [facility]. Urea nitrogen [Mass/Vol] 8 mg/dL Normal 6 - 20 mg/dL [facility].; Rayne Trendmeon [facility], [facility] No Panel Informationon 05-24 AGE 38 {years} Normal [facility].; [employer] Laboratory - Chemistry and C hemistry - challengeon 02-26-2012 Bilirubin Ql (U) Negative Normal [facility] [employer]. Ketones Ql (U) Negative Normal [facility] [facility] [employer]. pH (U) 6.0 [pH] Normal 4.6 - 8.0 [facility] [facility] [employer]. Specific gravity (U) [Rel density] 1.005 Normal 1.001 - 1.025 [facility] [facility] [employer] Laboratory - Hematology and Cell countson 02-26-2012 Hemoglobin Ql (U) Negative Normal [employer] Laboratory - Specimen inform ationon 02-26-2012 Appearance (U) clear Normal [facility].; [employer]. Color (U) yellow Normal [facility] [facility].; [employer] Laboratory - Urinalysison Glucose Test strip (U) [Mass/Vol] Negative Normal [employer].; [employer]. Leukocyte esterase Test strip Ql (U) Negative Normal [facility] [facility].; [employer]. Nitrite Ql (U) Negative Normal [facility] [facility].; [employer]. Protein Ql (U) Negative Normal [employer] [facility].; [employer] No Panel Informationon 02-25 UA - UROBILINOGEN 0.2 mg/dL Normal [employer] [facility].; [employer]. Vital Signs Date Time Vital Sign Value Performing Clinician Facility 08-13-2025 08:30-0400 Body mass index (BMI) [Ratio] 32.9 kg/m2 Leonora Saldivar PA Work Phone: [facility] 08-13-2025 08:30-0400 Body weight 84.36 kg Leonora Saldivar PA Work Phone: [facility] 08-13-2025 08:30-0400 Diastolic blood pressure 72 mm[Hg] Leonora Saldivar PA Work Phone: [facility] 08-13-2025 08:30-0400 Heart rate 90 /min Leonora Saldivar PA Work Phone: 8(624)467-802474 [address] 08-13-2025 08:30-0400 Respiratory rate 18 /min Leonora Saldivar PA Work Phone: 2(049)593-960169 [place] [address] 08-13-2025 08:30-0400 SaO2% (BldA) [Mass fraction] 98 % Leonora Saldivar PA Work Phone: 9(633)746-123552 [place] [address] 08-13-2025 08:30-0400 Systolic blood pressure 106 mm[Hg] Leonora Saldivar PA Work Phone: 9(011)391-322269 [place] [address] 08-06-2025 13:55-0400 Diastolic blood pressure 65 mm[Hg] Leonora Saldivar PA Work Phone: 4(164)417-331069 [place] [address] 08-06-2025 13:55-0400 Heart rate 73 /min Leonora Saldivar PA Work Phone: 0(313)329-730069 [place] [address] 08-06-2025 13:55-0400 Respiratory rate 14 /min Leonora Saldivar PA Work Phone: 1(634)335-697369 [place] [address] 08-06-2025 13:55-0400 SaO2% (BldA) [Mass fraction] 99 % Leonora Saldivar PA Work Phone: 1(276)867-319869 [place] [address] 08-06-2025 13:55-0400 Systolic blood pressure 110 mm[Hg] Leonora Saldivar PA Work Phone: 1(735)504-469369 [place] [address] 08-06-2025 13:27-0400 Body height 160.02 cm Leonora Saldivar PA Work Phone: 8(885)495-321569 [place] [address] 08-06-2025 13:27-0400 Body mass index (BMI) [Ratio] 32.9 kg/m2 Leonora Saldivar PA Work Phone: 7(273)584-484169 [place] [address] 08-06-2025 13:27-0400 Body temperature 97.7 [degF] Leonora Saldivar PA Work Phone: 3(054)016-773769 [place] [address] 08-06-2025 13:27-0400 Body weight 84.36 kg Leonora Saldivar PA Work Phone: 4(732)003-191452 [place] [address] 08-06-2025 07:56-0400 Body mass index (BMI) [Ratio] 32.9 kg/m2 Leonora Saldivar PA Work Phone: 7(421)699-062952 [place] [address] 08-06-2025 07:56-0400 Body temperature 97.4 [degF] Loenora Saldivar PA Work Phone: 2(505)715-850752 [place] [address] 08-06-2025 07:56-0400 Body weight 84.36 kg Leonora Saldivar PA Work Phone: 8(755)124-734252 [place] [address] 08-06-2025 07:56-0400 Diastolic blood pressure 80 mm[Hg] Leonora Saldivar PA Work Phone: 8(410)356-136374 [address] 08-06-2025 07:56-0400 Heart rate 86 /min Leonora Saldivar PA Work Phone: 6(282)847-360974 [address] 08-06-2025 07:56-0400 Respiratory rate 18 /min Leonora Saldivar PA Work Phone: 3(788)751-721152 [place] [address] 08-06-2025 07:56-0400 SaO2% (BldA) [Mass fraction] 98 % Leonora Saldivar PA Work Phone: 2(832)459-895652 [place] [address] 08-06-2025 07:56-0400 Systolic blood pressure 111 mm[Hg] Leonora Saldivar PA Work Phone: 8(887)001-542352 [place] [address] 05-30-2025 11:08-0400 Body height 160.02 cm Leonora Saldivar PA Work Phone: 3(370)736-513752 [place] [address] 05-30-2025 11:08-0400 Body mass index (BMI) [Ratio] 32.1 kg/m2 Leonora Saldivar PA Work Phone: [facility] 05-30-2025 11:08-0400 Body weight 82.1 kg Leonora Saldivar PA Work Phone: 6(842)976-983952 [place] [address] 05-30-2025 11:08-0400 Diastolic blood pressure 74 mm[Hg] Leonora Saldivar PA Work Phone: [facility] 05-30-2025 11:08-0400 Heart rate 71 /min Leonora Saldivar PA Work Phone: 5(266)066-323252 [place] [address] 05-30-2025 11:08-0400 Respiratory rate 16 /min Leonora Saldivar PA Work Phone: 6(688)596-818952 [place] [address] 05-30-2025 11:08-0400 Systolic blood pressure 165 mm[Hg] Leonora Saldivar PA Work Phone: 3(265)498-106769 [place] [address] 04-23-2025 08:55-0400 Body temperature 98 [degF] Leonora Saldivar PA Work Phone: 9(503)721-918569 [place] [address] 04-23-2025 08:55-0400 Diastolic blood pressure 58 mm[Hg] Leonora Saldivar PA Work Phone: 4(838)852-134569 [place] [address] 04-23-2025 08:55-0400 Heart rate 72 /min Leonora Salidvar PA Work Phone: 4(352)015-888069 [place] [address] 04-23-2025 08:55-0400 Respiratory rate 16 /min Leonora Saldivar PA Work Phone: 5(455)484-151269 [place] [address] 04-23-2025 08:55-0400 SaO2% (BldA) [Mass fraction] 96 % Leonora Saldivar PA Work Phone: 9(203)100-070569 [place] [address] 04-23-2025 08:55-0400 Systolic blood pressure 95 mm[Hg] Leonora Saldivar PA Work Phone: 9(314)976-182869 [place] [address] 04-23-2025 06:59-0400 Body height 160.02 cm Leonora Saldivar PA Work Phone: 1(278)462-205869 [place] [address] 04-23-2025 06:59-0400 Body mass index (BMI) [Ratio] 32 kg/m2 Leonora Saldivar PA Work Phone: 6(625)003-899269 [place] [address] 04-23-2025 06:59-0400 Body weight 82 kg Leonora Saldivar PA Work Phone: 8(454)364-066369 [place] [address] 04-16-2025 08:57-0400 Body height 160.02 cm Leonora Saldivar PA Work Phone: 3(373)008-609469 [place] [address] 04-16-2025 08:57-0400 Body mass index (BMI) [Ratio] 32.2 kg/m2 Leonora Saldivar PA Work Phone: 5(096)323-214752 [place] [address] 04-16-2025 08:57-0400 Body temperature 97.4 [degF] Leonora Saldivar PA Work Phone: 0(978)264-154152 [place] [address] 04-16-2025 08:57-0400 Body weight 82.55 kg Leonora Saldivar PA Work Phone: 2(017)258-273952 [place] [address] 04-16-2025 08:57-0400 Diastolic blood pressure 57 mm[Hg] Leonora Saldivar PA Work Phone: 8(581)785-247069 [place] [address] 04-16-2025 08:57-0400 Heart rate 67 /min Leonora Saldivar PA Work Phone: 2(737)351-392069 [place] [address] 04-16-2025 08:57-0400 Respiratory rate 18 /min Leonora Saldivar PA Work Phone: 2(081)787-012969 [place] [address] 04-16-2025 08:57-0400 SaO2% (BldA) [Mass fraction] 99 % Leonora Saldivar PA Work Phone: 5(007)632-553552 [place] [address] 04-16-2025 08:57-0400 Systolic blood pressure 100 mm[Hg] Leonora Saldivar PA Work Phone: 2(744)536-657252 [place] [address] 03-27-2025 12:28-0400 Body height 160.02 cm Leonora Saldivar PA Work Phone: 0(178)536-553652 [place] [address] 03-27-2025 12:28-0400 Body weight 83.91 kg Leonora Saldivar PA Work Phone: 8(975)994-658352 [place] [address] 03-27-2025 12:28-0400 Heart rate 69 /min Leonora Saldivar PA Work Phone: 4(611)876-115852 [place] [address] 03-27-2025 12:28-0400 Inhaled oxygen concentration 21 % Leonora Saldivar PA Work Phone: 5(476)602-412752 [place] [address] 03-27-2025 12:28-0400 Inhaled oxygen flow rate 21 L/min Leonora Saldivar PA Work Phone: 6(003)838-505752 [place] [address] 03-27-2025 12:28-0400 SaO2% (BldA) [Mass fraction] 98 % Leonora Saldivar PA Work Phone: [facility] 03-05-2025 08:44-0400 Body mass index (BMI) [Ratio] 32.9 kg/m2 Leonora Saldivar PA Work Phone: [facility] 03-05-2025 08:44-0400 Body temperature 97.4 [degF] Leonora Saldivar PA Work Phone: [facility] 03-05-2025 08:44-0400 Body weight 84.36 kg Leonora Saldivar PA Work Phone: [facility] 03-05-2025 08:44-0400 Diastolic blood pressure 93 mm[Hg] Leonora Saldivar PA Work Phone: [facility] 03-05-2025 08:44-0400 Heart rate 62 /min Leonora Saldivar PA Work Phone: [facility] 03-05-2025 08:44-0400 Respiratory rate 18 /min Leonora Saldivar PA Work Phone: [facility] 03-05-2025 08:44-0400 SaO2% (BldA) [Mass fraction] 99 % Leonora Saldivar PA Work Phone: [facility] 03-05-2025 08:44-0400 Systolic blood pressure 154 mm[Hg] Leonora Saldivar PA Work Phone: [facility] 02-02-2025 14:04-0400 Body height 160.02 cm Leonora J Saldivar PA-C Work Phone: [facility]; [employer] 02-02-2025 14:04-0400 Body mass index (BMI) [Ratio] 32.28 kg/m2 Leonora J Saldivar PA-C Work Phone: [employer] [facility].; [facility] 02-02-2025 14:04-0400 Body surface area Derived from formula 1.86 m2 Leonora Linh Saldivar PA-C Work Phone: [employer]; [employer] 02-02-2025 14:04-0400 Body temperature 97.9 [degF] Leonora J Saldivar PA-C Work Phone: [facility] [employer]; [employer]. Comment on above: Method: Tympanic 02-02-2025 14:04-0400 Body weight 82.67 kg Leonora J Saldivar PA-C Work Phone: [employer]; [employer] 02-02-2025 14:04-0400 Diastolic blood pressure 86 mm[Hg] Leonora J Saldivar PA-C Work Phone: [employer]; [employer]. Comment on above: Patient Position: Sitting; Cuff Location : Left Arm; Cuff Size: Standard 02-02-2025 14:04-0400 Heart rate 112 /min Leonora J Saldivar PA-C Work Phone: [employer]; [employer]. Comment on above: Pattern: Regular 02-02-2025 14:04-0400 Inhaled oxygen concentration 21 % Leonora Linh Saldivar PA-C Work Phone: [employer]; [employer]. Comment on above: Room air 02-02-2025 14:04-0400 SaO2% (BldA) [Mass fraction] 96 % Leonora Linh Saldivar PA-C Work Phone: [employer]; [employer]. 02-02-2025 14:04-0400 Systolic blood pressure 128 mm[Hg] Leonora J Saldivar PA-C Work Phone: [employer].; [employer]. Comment on above: Patient Position: Sitting; Cuff Location : Left Arm; Cuff Size: Standard 01-08-2025 10:03-0500 Body height 160.02 cm Radha [facility]ons [facility].; [facility]. 01-08-2025 10:03-0500 Body mass index (BMI) [Ratio] 32.24 kg/m2 Radha [facility]ons RN [facility].; [facility]. 01-08-2025 10:03-0500 Body surface area Derived from formula 1.86 m2 Radha Lyons RN [facility].; [facility]. 01-08-2025 10:03-0500 Body weight 82.56 kg Radha [facility]ons RN [facility].; [facility]. 01-08-2025 10:03-0500 Diastolic blood pressure 65 mm[Hg] Radha Lyons RN [facility].; [employer] [facility]. Comment on above: Patient Position: Sitting; Cuff Location : Left Arm; Cuff Size: Standard 01-08-2025 10:03-0500 Heart rate 69 /min Radha Lyons RN [facility].; [employer]. Comment on above: Pattern: Regular 01-08-2025 10:03-0500 Inhaled oxygen concentration 21 % Radha Lyons RN [facility].; [employer] [facility]. Comment on above: Room air 01-08-2025 10:03-0500 SaO2% (BldA) [Mass fraction] 99 % Radha Lyons RN [facility].; Rayne [facility]on [facility]. 01-08-2025 10:03-0500 Systolic blood pressure 96 mm[Hg] Radha Lyons RN [facility].; [employer]. Comment on above: Patient Position: Sitting; Cuff Location : Left Arm; Cuff Size: Standard 07-24-2024 12:52-0400 Body mass index (BMI) [Ratio] 29.76 kg/m2 Laurita Jamison APRN.CNP Work Phone: [facility] 07-24-2024 12:52-0400 Body weight 76.2 kg Laurita Jamison APRN.CNP Work Phone: [facility] 07-24-2024 12:52-0400 Diastolic blood pressure 70 mm[Hg] Laurita Shaheen CATH LAB TECHNOLOGIST.[employer] WORK[employer] Work Phone: [facility] 07-24-2024 12:52-0400 Systolic blood pressure 120 mm[Hg] Laurita Winnebago CATH LAB TECHNOLOGIST.[employer] Work Phone: [facility] 07-13-2024 09:59-0400 Body height 160.02 cm Bridget Smith MA [facility].; [facility] 07-13-2024 09:59-0400 Body mass index (BMI) [Ratio] 29.41 kg/m2 Bridget Smith MA [facility].; [facility] 07-13-2024 09:59-0400 Body surface area Derived from formula 1.79 m2 Bridget Smith MA [facility].; [facility] 07-13-2024 09:59-0400 Body weight 75.3 kg Bridget Smith MA [facility].; [facility] 07-13-2024 09:59-0400 Diastolic blood pressure 73 mm[Hg] Bridget Smith MA [facility].; [facility]. Comment on above: Patient Position: Sitting; Cuff Location : Left Arm; Cuff Size: Standard 07-13-2024 09:59-0400 Heart rate 71 /min Bridget Smith MA [facility].; Rayne [facility]rend[facility]on [facility]. Comment on above: Pattern: Regular 07-13-2024 09:59-0400 Systolic blood pressure 115 mm[Hg] Bridget Smith MA [facility].; Ray[facility]rend[facility]on [facility]. Comment on above: Patient Position: Sitting; Cuff Location : Left Arm; Cuff Size: Standard 05-29-2024 14:11-0400 Body mass index (BMI) [Ratio] 29.05 kg/m2 Laurita Win[place]ago CATH LAB TECHNOLOGIST.[employer] Work Phone: [facility] 05-29-2024 14:11-0400 Body weight 74.39 kg Laurita Win[place]ago CATH LAB TECHNOLOGIST.[employer] WORK[employer] Work Phone: [facility] 05-29-2024 14:11-0400 Diastolic blood pressure 70 mm[Hg] Laurita Shaheen CATH LAB TECHNOLOGIST.[employer] Work Phone: [facility] 05-29-2024 14:11-0400 Systolic blood pressure 122 mm[Hg] Laruita Shaheen CATH LAB TECHNOLOGIST.[employer] Work Phone: [facility] 03-27-2024 10:28-0400 Body height 160 cm Laurita Win[place]ago CATH LAB TECHNOLOGIST.[employer] Work Phone: [facility] 03-27-2024 10:28-0400 Body mass index (BMI) [Ratio] 27.74 kg/m2 Laurita Win[place]ago CATH LAB TECHNOLOGIST.[employer] Work Phone: [facility] 03-27-2024 10:28-0400 Body weight 71.03 kg Laurita Shaheen CATH LAB TECHNOLOGIST.[employer] WORK[employer] Work Phone: [facility] 03-27-2024 10:28-0400 Diastolic blood pressure 80 mm[Hg] Laurita Win[place]ago CATH LAB TECHNOLOGIST.[employer] WORK[employer] Work Phone: [facility] 03-27-2024 10:28-0400 Systolic blood pressure 138 mm[Hg] Laurita Win[place]ago CATH LAB TECHNOLOGIST.[employer] WORK[employer] Work Phone: [facility] 01-04-2024 10:49-0500 Body height 160.02 cm Elizabeth Beard MA [facility], [facility].; [facility], [facility]. 01-04-2024 10:49-0500 Body mass index (BMI) [Ratio] 26.96 kg/m2 Elizabeth Beard MA [facility], [facility].; [facility], [facility]. 01-04-2024 10:49-0500 Body surface area Derived from formula 1.72 m2 Elizabeth Beard MA [facility], [facility].; [facility], [facility]. 01-04-2024 10:49-0500 Body weight 69.03 kg Elizabeth Beard MA [facility], [facility].; [facility], [facility]. 01-04-2024 10:49-0500 Diastolic blood pressure 75 mm[Hg] Elizabeth Beard MA [facility].; [facility]. Comment on above: Patient Position: Sitting; Cuff Location : Left Arm; Cuff Size: Standard 01-04-2024 10:49-0500 Heart rate 84 /min Elizabeth Beard MA [facility].; [facility]. Comment on above: Pattern: Regular 01-04-2024 10:49-0500 Systolic blood pressure 117 mm[Hg] Elizabeth Beard MA [facility].; [facility]. Comment on above: Patient Position: Sitting; Cuff Location : Left Arm; Cuff Size: Standard 01-03-2024 07:41-0500 Body height 160.02 cm PA Leonora Saldivar Work Phone: [facility] 01-03-2024 07:41-0500 Body mass index (BMI) [Ratio] 26 kg/m2 PA Leonora Saldivar Work Phone: [facility] 01-03-2024 07:41-0500 Body temperature 96.4 [degF] PA Leonora Saldivar Work Phone: [facility] 01-03-2024 07:41-0500 Body weight 66.67 kg PA Leonora Saldivar Work Phone: [facility] 01-03-2024 07:41-0500 Diastolic blood pressure 72 mm[Hg] PA Leonora Saldivar Work Phone: [facility] 01-03-2024 07:41-0500 Heart rate 68 /min PA Leonora Saldivar Work Phone: [facility] 01-03-2024 07:41-0500 Respiratory rate 18 /min PA Leonora Saldivar Work Phone: [facility] 01-03-2024 07:41-0500 SaO2% (BldA) [Mass fraction] 98 % PA Leonora Saldivar Work Phone: [facility] 01-03-2024 07:41-0500 Systolic blood pressure 106 mm[Hg] PA Leonora Saldivar Work Phone: [facility] 11-03-2023 10:52-0500 Body height 160.[address] Carlin Adam Work Phone: [facility] 11-03-2023 10:52-0500 Body mass index (BMI) [Ratio] 26.4 kg/m2 Dr. Carlin Adam Work Phone: [facility] 11-03-2023 10:52-0500 Body temperature 98.4 [degF] Dr. Carlin Adam Work Phone: [facility] 11-03-2023 10:52-0500 Body weight 67.[address] Carlin Adam Work Phone: 7(863)307-644052 [place] [address] 11-03-2023 10:52-0500 Diastolic blood pressure 74 mm[Hg] Dr. Carlin Adam Work Phone: 3(407)355-946152 [place] [address] 11-03-2023 10:52-0500 Heart rate 51 /min Dr. Carlin Adam Work Phone: 4(389)393-417452 [place] [address] 11-03-2023 10:52-0500 Respiratory rate 18 /min Dr. Carlin Adam Work Phone: 5(683)903-323352 [place] [address] 11-03-2023 10:52-0500 SaO2% (BldA) [Mass fraction] 97 % Dr. Carlin Adam Work Phone: [facility] 11-03-2023 10:52-0500 Systolic blood pressure 129 mm[Hg] Dr. Carlin Adam Work Phone: [facility] 10-25-2023 13:53-0500 Body height 160.[address] Carlin Adam Work Phone: [facility] 10-25-2023 13:53-0500 Body weight 65.[address] Carlin Adam Work Phone: [facility] 10-25-2023 13:53-0500 Heart rate 84 /min Dr. Carlin Adam Work Phone: [facility] 10-25-2023 13:53-0500 SaO2% (BldA) [Mass fraction] 99 % Dr. Carlin Adam Work Phone: [facility] 09-15-2023 06:30-0500 Body mass index (BMI) [Ratio] 27.3 kg/m2 Dr. Carlin Adam Work Phone: [facility] 09-15-2023 06:30-0500 Body temperature 96.8 [degF] Dr. Carlin Adam Work Phone: [facility] 09-15-2023 06:30-0500 Body weight 69.[address] Carlin Adam Work Phone: [facility] 09-15-2023 06:30-0500 Diastolic blood pressure 68 mm[Hg] Dr. Carlin Adam Work Phone: [facility] 09-15-2023 06:30-0500 Heart rate 84 /min Dr. Carlin Adam Work Phone: [facility] 09-15-2023 06:30-0500 SaO2% (BldA) [Mass fraction] 96 % Dr. Carlin Adam Work Phone: [facility] 09-15-2023 06:30-0500 Systolic blood pressure 122 mm[Hg] Dr. Carlin Adam Work Phone: 2(585)622-433452 [place] [address] 08-09-2023 10:11-0400 Body height 160.02 cm Elizabeth [facility]ard MA [facility] [facility], [facility].; [facility], [facility]. 08-09-2023 10:11-0400 Body mass index (BMI) [Ratio] 27.18 kg/m2 Elizabeth Beard MA [facility], [facility]. 08-09-2023 10:11-0400 Body surface area Derived from formula 1.73 m2 Elizabeth Beard MA [facility], [facility].; [facility], [facility]. 08-09-2023 10:11040 Body weight 69.6 kg Elizabeth Beard MA [facility], [facility].; [facility], [facility]. 08-09-2023 10:11-0400 Diastolic blood pressure 74 mm[Hg] Elizabeth Beard MA [facility], [facility].; [facility], [facility]. Comment on above: Patient Position: Sitting; Cuff Location : Left Arm; Cuff Size: Standard 08-09-2023 10:110400 Heart rate 98 /min Elizabeth Beard [facility] [employer]. Comment on above: Pattern: Regular 08-09-2023 10:11-0400 Systolic blood pressure 109 mm[Hg] Elizabeth Beard [facility].; [employer]. Comment on above: Patient Position: Sitting; Cuff Location : Left Arm; Cuff Size: Standard 06-11-2023 13:18-0400 Body height 160.02 cm Elizabeth Beard [facility] [employer]. 06-11-2023 13:18-0400 Body mass index (BMI) [Ratio] 26.57 kg/m2 [facility].; [employer]. 06-11-2023 13:18-0400 Body surface area Derived from formula 1.71 m2 Elizabeth Beard MA [facility].; [employer] [facility]. 06-11-2023 13:18-0400 Body weight 68.04 kg Elizabeth Beard MA [facility].; [employer]. 06-11-2023 13:18-0400 Diastolic blood pressure 89 mm[Hg] Elizabeth Beard MA [facility].; [employer]. Comment on above: Patient Position: Sitting; Cuff Location : Left Arm; Cuff Size: Standard 06-11-2023 13:18-0400 Heart rate 79 /min Elizabeth Beard MA [facility].; [employer]. Comment on above: Pattern: Regular 06-11-2023 13:18-0400 Systolic blood pressure 131 mm[Hg] Elizabeth Beard MA [facility].; [employer]. Comment on above: Patient Position: Sitting; Cuff Location : Left Arm; Cuff Size: Standard 10-15-2021 10:33-0500 Body height 160.02 cm Daniella Virgen LPN [facility].; [employer]. 10-15-2021 10:33-0500 Body mass index (BMI) [Ratio] 24.98 kg/m2 Daniella Virgen LPN [facility], [facility].; [facility], [facility]. 10-15-2021 10:33-0500 Body surface area Derived from formula 1.67 m2 Daniella Virgen LPN [facility], [facility].; [facility], [facility]. 10-15-2021 10:33-0500 Body weight 63.96 kg Daniella Virgen LPN [facility], [facility].; [facility], [facility]. 10-15-2021 10:33-0500 Diastolic blood pressure 72 mm[Hg] Daniella Virgen LPN [facility], [facility].; [facility], [facility]. Comment on above: Patient Position: Sitting; Cuff Location : Left Arm; Cuff Size: Standard 10-15-2021 10:33-0500 Heart rate 91 /min Daniella Virgen LPN [facility], [facility].; [facility], [facility]. Comment on above: Pattern: Regular 10-15-2021 10:33-0500 Systolic blood pressure 112 mm[Hg] Daniella Virgen LPN [facility], [facility].; [facility], [facility]. Comment on above: Patient Position: Sitting; Cuff Location : Left Arm; Cuff Size: Standard 08-04-2021 13:090400 Body height 160.02 cm Lady Bowers EXTERMINATOR [facility], [facility].; [facility], [facility]. 08-04-2021 13:09-0400 Body mass index (BMI) [Ratio] 25.51 kg/m2 Lady Bowers LPN [facility], [facility].; [facility], [facility]. 08-04-2021 13:090400 Body surface area Derived from formula 1.68 m2 Lady Bowers EXTERMINATOR [facility], [facility].; [facility], [facility]. 08-04-2021 13:090400 Body weight 65.32 kg Lady Robinson POE [facility], [facility].; [facility], [facility]. 08-04-2021 13:09-0400 Diastolic blood pressure 78 mm[Hg] Lady Bowers EXTERMINATOR [facility], [facility].; [facility] [employer], [facility]. Comment on above: Patient Position: Sitting; Cuff Location : Left Arm; Cuff Size: Standard 08-04-2021 13:09-0400 Heart rate 92 /min Lady Bowers LPN [employer] Comment on above: Pattern: Regular 08-04-2021 13:09-0400 Systolic blood pressure 127 mm[Hg] Lady Bowers DEEPIKA [employer]. Comment on above: Patient Position: Sitting; Cuff Location : Left Arm; Cuff Size: Standard 01-26-2019 14:15-0400 Body height 160.02 cm Radha Lyons RN [employer]. 01-26-2019 14:15-0400 Body mass index (BMI) [Ratio] 26.93 kg/m2 Radha Lyons RN [employer].; [employer]. 01-26-2019 14:15-0400 Body surface area Derived from formula 1.72 m2 Radha Lyons RN [employer]. 01-26-2019 14:15-0400 Body temperature 98.4 [degF] Radha Lyons RN [employer].; [employer]. Comment on above: Method: Tympanic 01-26-2019 14:15-0400 Body weight 68.95 kg Radha Lyons RN [employer] 01-26-2019 14:15-0400 Diastolic blood pressure 63 mm[Hg] Radha Lyons RN [employer].; [employer]. Comment on above: Patient Position: Sitting; Cuff Location : Left Arm; Cuff Size: Standard 01-26-2019 14:15-0400 Heart rate 69 /min Radha Lyons RN [employer].; [employer]. Comment on above: Pattern: Regular 01-26-2019 14:15-0400 Systolic blood pressure 98 mm[Hg] Radha Lyons RN [employer].; [employer]. Comment on above: Patient Position: Sitting; Cuff Location : Left Arm; Cuff Size: Standard 11-29-2018 11:01-0500 Body height 160.02 cm Leonora Saldivar PA-C Work Phone: [employer]; [employer]. 11-29-2018 11:01-0500 Body mass index (BMI) [Ratio] 26.57 kg/m2 Leonora Saldivar PA-C Work Phone: [employer]; [employer]. 11-29-2018 11:01-0500 Body surface area Derived from formula 1.71 m2 Leonora Saldivar PA-C Work Phone: [employer]; [employer]. 11-29-2018 11:01-0500 Body weight 68.04 kg Leonora Saldivar PA-C Work Phone: [employer]; [employer]. 11-29-2018 11:01-0500 Diastolic blood pressure 74 mm[Hg] Leonora Saldivar PA-C Work Phone: [employer]; [employer]. Comment on above: Patient Position: Sitting; Cuff Location : Left Arm; Cuff Size: Standard 11-29-2018 11:01-0500 Heart rate 79 /min Leonora Saldivar PA-C Work Phone: [employer]; [employer] Comment on above: Pattern: Regular 11-29-2018 11:01-0500 Systolic blood pressure 113 mm[Hg] Leonora Saldivar PA-C Work Phone: [employer]; [employer] Comment on above: Patient Position: Sitting; Cuff Location : Left Arm; Cuff Size: Standard 08-26-2018 12:02-0400 Body height 160.02 cm Leonora Saldivar PA-C Work Phone: [employer]; [employer]. 08-26-2018 12:02-0400 Body mass index (BMI) [Ratio] 23.91 kg/m2 Leonora Saldivar PA-C Work Phone: [employer]; [employer] 08-26-2018 12:02-0400 Body surface area Derived from formula 1.64 m2 Leonora Saldivar PA-C Work Phone: [employer]; [employer] 08-26-2018 12:02-0400 Body weight 61.24 kg Leonora Saldivar PA-C Work Phone: [employer]; [employer] 08-26-2018 12:02-0400 Diastolic blood pressure 68 mm[Hg] Leonora Saldivar PA-C Work Phone: [employer]; [employer]. Comment on above: Patient Position: Sitting; Cuff Location : Left Arm; Cuff Size: Standard 08-26-2018 12:02-0400 Heart rate 64 /min Leonora Saldivar PA-C Work Phone: [employer]; [employer]. Comment on above: Pattern: Regular 08-26-2018 12:02-0400 Systolic blood pressure 105 mm[Hg] Leonora Saldivar PA-C Work Phone: [employer]; [employer] Comment on above: Patient Position: Sitting; Cuff Location : Left Arm; Cuff Size: Standard 06-03-2018 15:130400 Body height 160.02 cm Nava Garcias LPN [employer]. 06-03-2018 15:13-0400 Body mass index (BMI) [Ratio] 23.56 kg/m2 Nava Garcias LPN [employer]. 06-03-2018 15:13-0400 Body surface area Derived from formula 1.63 m2 Nava Garcias LPN [employer].; [employer]. 06-03-2018 15:13-0400 Body weight 60.33 kg Nava Garcias LPN [employer].; [employer]. 06-03-2018 15:13-0400 Diastolic blood pressure 66 mm[Hg] Nava Dieter POE [facility] [employer]. Comment on above: Patient Position: Sitting; Cuff Location : Left Arm; Cuff Size: Standard 06-03-2018 15:13-0400 Heart rate 69 /min Nava Dieter POE [facility] [employer]. Comment on above: Pattern: Regular 06-03-2018 15:13-0400 Systolic blood pressure 107 mm[Hg] Nava Garcias LPN [facility] [employer]. Comment on above: Patient Position: Sitting; Cuff Location : Left Arm; Cuff Size: Standard 05-27-2018 15:52-0400 Body height 160.02 cm Nava Garcias LPN [facility] [employer]. 05-27-2018 15:52-0400 Body mass index (BMI) [Ratio] 23.38 kg/m2 Nava Garcias LPN [facility] [employer]. 05-27-2018 15:52-0400 Body surface area Derived from formula 1.62 m2 Nava Garcias LPN [facility] [employer], [employer]. 05-27-2018 15:52-0400 Body temperature 97.7 [degF] Nava Garcias LPN [facility] [employer], [employer]. 05-27-2018 15:52-0400 Body weight 59.88 kg Nava Garcias LPN [facility] [employer], [employer]. 05-27-2018 15:52-0400 Diastolic blood pressure 77 mm[Hg] Nava Garcias LPN [facility] [employer]. Comment on above: Patient Position: Sitting; Cuff Location : Left Arm; Cuff Size: Standard 05-27-2018 15:52-0400 Heart rate 84 /min Nava Garcias LPN [facility] [employer]. Comment on above: Pattern: Regular 05-27-2018 15:52-0400 Systolic blood pressure 109 mm[Hg] Nava Garcias LPN [facility] [employer]. Comment on above: Patient Position: Sitting; Cuff Location : Left Arm; Cuff Size: Standard 01-04-2017 10:23-0500 Body height 160.02 cm Radha Lyons RN [employer]. 01-04-2017 10:23-0500 Body mass index (BMI) [Ratio] 21.43 kg/m2 Radha Lyons RN [employer] 01-04-2017 10:23-0500 Body surface area Derived from formula 1.56 m2 Radha Lyons RN [employer]. 01-04-2017 10:23-0500 Body weight 54.89 kg Radha Lyons RN [employer].; [employer]. 01-04-2017 10:23-0500 Diastolic blood pressure 88 mm[Hg] Radha Lyons RN [employer].; [employer]. Comment on above: Patient Position: Sitting; Cuff Location : Left Arm; Cuff Size: Standard 01-04-2017 10:23-0500 Heart rate 62 /min Radha Lyons RN [employer].; [employer]. Comment on above: Pattern: Regular 01-04-2017 10:23-0500 Systolic blood pressure 139 mm[Hg] Radha Lyons RN [employer].; [employer]. Comment on above: Patient Position: Sitting; Cuff Location : Left Arm; Cuff Size: Standard 12-09-2015 09:07-0500 Body height 160.02 cm Radha Lyons RN [employer].; [employer]. 12-09-2015 09:07-0500 Body mass index (BMI) [Ratio] 22.32 kg/m2 Radha Lyons RN [employer].; [employer]. 12-09-2015 09:07-0500 Body surface area Derived from formula 1.59 m2 Radha Lyons RN [employer].; [employer]. 12-09-2015 09:07-0500 Body temperature 98.2 [degF] Radha Lyons RN [employer]. Comment on above: Method: Tympanic 12-09-2015 09:07-0500 Body weight 57.15 kg Radha Lyons RN [facility].; [employer] 12-09-2015 09:07-0500 Diastolic blood pressure 60 mm[Hg] Radha Lyons RN [facility] [employer] [facility].; [employer]. Comment on above: Patient Position: Sitting; Cuff Location : Left Arm; Cuff Size: Standard 12-09-2015 09:07-0500 Heart rate 80 /min Radha Lyons RN [employer] [facility].; [employer]. Comment on above: Pattern: Regular 12-09-2015 09:07-0500 Inhaled oxygen concentration 20 % Radha Lyons RN [employer].; [employer]. Comment on above: Room air 12-09-2015 09:07-0500 Inhaled oxygen concentration 21 % Radha Lyons RN [employer]. Comment on above: Room air 12-09-2015 09:07-0500 SaO2% (BldA) [Mass fraction] 99 % Radha Lyons RN [employer].; [employer] 12-09-2015 09:07-0500 Systolic blood pressure 101 mm[Hg] Radha Lyons RN [employer].; [employer]. Comment on above: Patient Position: Sitting; Cuff Location : Left Arm; Cuff Size: Standard 10-09-2015 11:45-0500 Body height 160.02 cm Leonor Zaman LPN [facility].; [employer]. 10-09-2015 11:45-0500 Body mass index (BMI) [Ratio] 23.03 kg/m2 Leonor Zaman LPN [facility] [employer]. 10-09-2015 11:45-0500 Body surface area Derived from formula 1.61 m2 Leonor Zaman LPN [facility] [employer] 10-09-2015 11:45-0500 Body temperature 97.2 [degF] Leonor Villalobosrios POE [facility] [employer], [employer]. Comment on above: Method: Tympanic 10-09-2015 11:45-0500 Body weight 58.97 kg Leonor Werios POE [facility] [employer] 10-09-2015 11:45-0500 Diastolic blood pressure 68 mm[Hg] Leonor Austyn POE [facility] [employer], [employer]. Comment on above: Patient Position: Sitting; Cuff Location : Left Arm; Cuff Size: Standard 10-09-2015 11:45-0500 Heart rate 93 /min Leonor Wilfredorios POE [facility] [employer], [employer]. Comment on above: Pattern: Regular 10-09-2015 11:45-0500 Inhaled oxygen concentration 20 % Leonor Wilfredorios POE [facility] [employer]. Comment on above: Room air 10-09-2015 11:45-0500 Inhaled oxygen concentration 21 % Leonor Werios POE [facility], [employer], [employer]. Comment on above: Room air 10-09-2015 11:45-0500 SaO2% (BldA) [Mass fraction] 98 % Leonor Werios POE [facility] [employer]. 10-09-2015 11:45-0500 Systolic blood pressure 100 mm[Hg] Leonor Zaman LPN [employer]. Comment on above: Patient Position: Sitting; Cuff Location : Left Arm; Cuff Size: Standard 03-20-2014 08:10-0400 Body height 160.02 cm Shyla Rossi RN Work Phone: [employer].; [employer] 03-20-2014 08:10-0400 Body mass index (BMI) [Ratio] 23.74 kg/m2 Shyla Rossi RN Work Phone: [employer].; [employer]. 03-20-2014 08:10-0400 Body surface area Derived from formula 1.63 m2 Shyla Rossi RN Work Phone: [employer].; [employer]. 03-20-2014 08:10-0400 Body weight 60.78 kg Shyla Rossi RN Work Phone: [employer].; [employer]. 03-20-2014 08:10-0400 Diastolic blood pressure 58 mm[Hg] Shyla Rossi RN Work Phone: [employer].; [employer]. Comment on above: Patient Position: Sitting; Cuff Location : Right Arm; Cuff Size: Standard 03-20-2014 08:10-0400 Heart rate 63 /min Shyla Rossi RN Work Phone: [employer].; [employer]. Comment on above: Pattern: Regular 03-20-2014 08:10-0400 Systolic blood pressure 101 mm[Hg] Shyla Rossi RN Work Phone: [employer].; [employer]. Comment on above: Patient Position: Sitting; Cuff Location : Right Arm; Cuff Size: Standard 02-26-2012 10:45-0400 Body height 160.02 cm Shyla Rossi RN Work Phone: [employer].; [employer]. 02-26-2012 10:45-0400 Body mass index (BMI) [Ratio] 21.97 kg/m2 Shyla Rossi RN Work Phone: [employer].; [employer]. 02-26-2012 10:45-0400 Body surface area Derived from formula 1.58 m2 Shyla Rossi RN Work Phone: [employer].; [employer]. 02-26-2012 10:45-0400 Body weight 56.25 kg Shyla Rossi RN Work Phone: [employer]; [employer] [employer] [facility]. 02-26-2012 10:45-0400 Diastolic blood pressure 68 mm[Hg] Shyla Rossi RN Work Phone: [facility].; [employer]. Comment on above: Patient Position: Sitting; Cuff Location : Left Arm; Cuff Size: Standard 02-26-2012 10:45-0400 Heart rate 76 /min Shyla Rossi RN Work Phone: [facility] [employer]. Comment on above: Pattern: Regular 02-26-2012 10:45-0400 Systolic blood pressure 102 mm[Hg] Shyla Rossi RN Work Phone: [facility].; [employer]. Comment on above: Patient Position: Sitting; Cuff Location : Left Arm; Cuff Size: Standard 02-08-2012 09:06-0400 Body height 160.02 cm Barbra Blanchard MD Work Phone: [facility] [employer]. 02-08-2012 09:06-0400 Body mass index (BMI) [Ratio] 21.97 kg/m2 Barbra Blanchard MD Work Phone: [facility].; [employer] [facility]. 02-08-2012 09:06-0400 Body surface area Derived from formula 1.58 m2 Barbra Blanchard MD Work Phone: [facility].; [employer]. 02-08-2012 09:06-0400 Body weight 56.25 kg Barbra Blanchard MD Work Phone: [employer].; [employer]. 02-08-2012 09:06-0400 Diastolic blood pressure 71 mm[Hg] Barbra Blanchard MD Work Phone: [employer] [employer] [facility].; [employer]. Comment on above: Patient Position: Sitting; Cuff Location : Right Arm; Cuff Size: Standard 02-08-2012 09:06-0400 Heart rate 66 /min Barbra Blanchard MD Work Phone: [facility]; [employer]. Comment on above: Pattern: Regular 02-08-2012 09:06-0400 Systolic blood pressure 110 mm[Hg] Barbra Blanchard MD Work Phone: [facility] [employer]. Comment on above: Patient Position: Sitting; Cuff Location : Right Arm; Cuff Size: Standard 05-12-2011 08:46-0400 Body weight 59.42 kg Shyla Rossi RN Work Phone: [employer].; [employer]. 05-12-2011 08:46-0400 Diastolic blood pressure 82 mm[Hg] Shyla Rossi RN Work Phone: [employer].; [employer]. Comment on above: Patient Position: Sitting; Cuff Location : Left Arm; Cuff Size: Standard 05-12-2011 08:46-0400 Heart rate 66 /min Shyla Rossi RN Work Phone: [employer]; [employer]. Comment on above: Pattern: Regular 05-12-2011 08:46-0400 Systolic blood pressure 110 mm[Hg] Shyla Rossi RN Work Phone: [employer]; [employer]. Comment on above: Patient Position: Sitting; Cuff Location : Left Arm; Cuff Size: Standard Encounters Encounter Date Encounter Type Care Provider Facility Start: 09-14-2025 ambulatory Zack Meza y:[facility] Start: 09-11-2025 End: 09-11-2025 ambulatory LEONORA SALDIVAR [facility] Start: 08-20-2025 End: 08-20-2025 ambulatory Ashanti Mejía NP Facility:[facility] Start: 08-13-2025 End: 08-13-2025 Patient encounter procedure Scotty MILLS -[facility] Work Phone: Start: 08-13-2025 End: 08-13-2025 ambulatory Leonora MILLS Work Phone: -[facility] Start: 08-06-2025 ambulatory Scotty Darwin Facility :[facility] Start: 08-06-2025 Non-patient / Non-visit Dr. Nixon SEQUEIRA -[facility] Start: 08-06-2025 End: 08-06-2025 ambulatory Leonora Saldivar PA Work Phone: -[facility] Start: 08-06-2025 End: 08-06-2025 Patient encounter procedure Scotty Granados PA -[facility] Work Phone: Start: 08-06-2025 End: 08-06-2025 Patient encounter procedure Ashanti Mejía CYLINDER SANDER OPERATOR-C -[facility] Work Phone: Start: 08-06-2025 End: 08-06-2025 ambulatory Leonora Saldivar PA Work Phone: -[facility] Start: 08-06-2025 End: 08-06-2025 ambulatory Scotty Demiter Facility:[facility] Start: 07-23-2025 End: 07-23-2025 ambulatory LEONORA PAC SALDIVAR [facility] Start: 07-02-2025 End: 07-02-2025 Orders Leonora Saldivar PA-C Work Phone: [facility] Start: 06-28-2025 ambulatory Simon Del Rosario Facility:[facility] Start: 06-18-2025 End: 06-18-2025 ambulatory Leonora Saldivar PA Work Phone: [facility] Start: 06-18-2025 End: 06-18-[address] Zack Whalen [facility] Work Phone: Start: 06-18-2025 End: 06-18-2025 ambulatory Zack Whalen Facility:[facility] Start: 05-30-2025 End: 05-30-2025 Historical Summary Leonora Saldivar PA-C Work Phone: [facility] Start: 05-30-2025 End: 05-30-[address] Simon Del Rosario MD -[facility] Work Phone: Start: 05-30-2025 End: 05-30-2025 ambulatory Leonora Saldivar PA Work Phone: -[facility] Start: 05-30-2025 End: 05-30-2025 ambulatory Simon Del Rosario Facility:[facility] Start: 05-25-2025 End: 05-25-2025 Patient encounter procedure Leonora Saldivar PA-C Work Phone: [facility] Start: 05-08-2025 Non-patient / Non-visit Dr. Emerita jo MD -[facility] Work Phone: Start: 04-23-2025 Non-patient / Non-visit Dr. Andrés Amador MD -[facility] Start: 04-23-2025 End: 04-23-2025 Admission to same day surgery center Dr. Maddy Amador MD -Endoscopy Work Phone: Start: 04-23-2025 End: 04-23-2025 ambulatory Leonora Saldivar PA Work Phone: [facility] Work Phone: Start: 04-16-2025 End: 04-16-2025 Patient encounter procedure Ashanti Mejía CYLINDER SANDER OPERATOR-C -[facility] Work Phone: Start: 04-16-2025 End: 04-16-2025 ambulatory Leonora Saldivar PA Work Phone: [facility] Work Phone: Start: 04-12-2025 End: 04-12-2025 Patient encounter procedure Leonora Saldivar PA-C Work Phone: [facility] Start: 04-03-2025 ambulatory Dangelo Muller Facility:[facility] Start: 04-03-2025 Non-patient / Non-visit Dr. Dangelo perla DO -[facility] Start: 04-01-2025 End: 04-01-2025 ambulatory Leonora Saldivar PA Work Phone: [facility] Work Phone: Start: 04-01-2025 End: 04-01-2025 Patient encounter procedure Ashanti Mejía CYLINDER SANDER OPERATOR-C -Sleep Lab Work Phone: Start: 04-01-2025 End: 04-01-2025 ambulatory Ashanti Mejía CYLINDER SANDER OPERATOR Facility:[facility] Start: 03-27-2025 End: 03-27-2025 ambulatory Leonoraasha Saldivar PA Work Phone: [facility] Work Phone: Start: 03-27-2025 End: 03-27-2025 Patient encounter procedure Ashanti Mejía CYLINDER SANDER OPERATOR-C -Pulmonary Services/Neurology Work Phone: Start: 03-27-2025 End: 03-27-2025 ambulatory Ashanti Mejía NP Facility:[facility] Start: 03-23-2025 ambulatory Leonora Saldivar Facility:[facility] Start: 03-23-2025 Non-patient / Non-visit [facility] Start: 03-23-2025 End: 03-23-2025 Patient encounter procedure Ashanti Mejía CYLINDER SANDER OPERATOR-C -Cardiovascular Services Work Phone: Start: 03-23-2025 End: 03-23-2025 ambulatory Ashanti Mejía CYLINDER SANDER OPERATOR Facility:[facility] Start: 03-05-2025 End: 03-05-2025 Patient encounter procedure Ashanti Mejía CYLINDER SANDER OPERATOR-C -[facility] Work Phone: Start: 03-05-2025 End: 03-05-2025 ambulatory Leonora Saldivar Facility:[facility] Start: 02-02-2025 End: 02-02-2025 Office outpatient visit 15 minutes Leonora Saldivar PA-C Work Phone: [facility] Start: 01-10-2025 End: 01-10-2025 Patient encounter procedure Leonora Saldivar PA-C Work Phone: [facility] Start: 01-08-2025 End: 01-08-2025 Orders Leonora Saldivar PA-C Work Phone: [facility] Start: 01-08-2025 End: 01-08-2025 ambulatory LEONORA SALDIVAR [facility] Start: 01-08-2025 End: 01-08-2025 Office outpatient visit 25 minutes Leonora Saldivar PA-C Work Phone: [facility] Start: 01-08-2025 Review Leonora Saldivar P A-C Work Phone: [facility] Start: 12-18-2024 End: 12-18-2024 Patient encounter procedure Ashanti Mejía CYLINDER SANDER OPERATOR-C -Pulmonary Services/Neurology Work Phone: Start: 12-18-2024 End: 12-18-2024 ambulatory Ashanti Mejía CYLINDER SANDER OPERATOR Facility:[facility] Start: 12-11-2024 End: 12-11-2024 Patient encounter procedure Ashanti Mejía CYLINDER SANDER OPERATOR-C -Cat Scan [facility] Work Phone: Start: 12-11-2024 End: 12-11-2024 ambulatory Ashanti Mejía CYLINDER SANDER OPERATOR Facility:[facility] Start: 07-31-2024 Review Leonora Saldivar P A-C Work Phone: [facility] Start: 07-24-2024 End: 07-24-2024 ambulatory LAURITA THEODOREF Facility:[facility] Start: 07-24-2024 End: 07-24-2024 Patient encounter procedure Laurita Theodoref CATH LAB TECHNOLOGIST.FIBREGLASS LAY UP WORKER Work Phone: OB/Gynecology Comment on above: Menopausal symptoms (Primary Dx); OAB (overactive bladder) Start: 07-13-2024 End: 07-13-2024 Patient encounter status Leonora Saldivar PA-C Work Phone: [facility] Start: 07-13-2024 End: 07-13-2024 Periodic preventive med est patient 40-64yrs Leonora Saldivar PA-C Work Phone: [facility] Start: 07-13-2024 Review Leonora Richter Work Phone: [facility] Start: 06-15-2024 Telephone encounter Laurita Randy rachelle POLK.FIBREGLASS LAY UP WORKER Work Phone: OB/Gynecology Comment on above: Results Start: 05-29-2024 End: 05-29-2024 ambulatory [facility] Facility:[facility] Start: 05-29-2024 End: 05-29-2024 Patient encounter procedure Laurita Jamison CATH LAB TECHNOLOGIST.FIBREGLASS LAY UP WORKER Work Phone: OB/Gynecology Comment on above: Unintended weight ga in (Primary Dx); OAB (overactive bladder); Forgetfulness; Hot flashes; Screening cholesterol level; Screening for diabetes mellitus; Screening for metabolic disorder; Encounter for vitamin deficiency screening Start: 05-03-2024 ambulatory [facility] Start: 05-01-2024 End: 05-01-2024 Orders Leonora Saldivar PA-C Work Phone: [facility] Start: 03-27-2024 End: 03-27-2024 ambulatory [facility] Facility:[facility] Start: 03-27-2024 End: 03-27-2024 Patient encounter procedure Laurita Jamison CATH LAB TECHNOLOGIST.FIBREGLASS LAY UP WORKER Work Phone: OB/Gynecology Comment on above: Encounter for gyneco logical examination (general) (routine) without abnormal findings (Primary Dx); Hot flashes; Encounter for screening mammogram for malignant neoplasm of breast Start: 03-27-2024 End: 03-27-2024 Patient encounter status Laurita Jamison CATH LAB TECHNOLOGIST.FIBREGLASS LAY UP WORKER Work Phone: [facility] Start: 01-24-2024 End: 01-24-2024 ambulatory PA Leonora Saldivar Work Phone: [facility] Work Phone: Start: 01-24-2024 End: 01-24-2024 Patient encounter procedure LINA Saldivar Work Phone: [facility]-Pulmonary Services/Neurology Work Phone: Start: 01-07-2024 End: 01-07-2024 Patient encounter procedure Leonora Saldivar PA-C Work Phone: [facility] Start: 01-04-2024 End: 01-04-2024 Office outpatient visit 25 minutes Leonora Saldivar PA-C Work Phone: [facility] Start: 01-03-2024 End: 01-03-2024 Patient encounter procedure LINA Saldivar Work Phone: [facility]-Pulmonary Medicine [facility] Work Phone: Start: 12-13-2023 Non-patient / Non-visit Dr. Jaylyn Adam Work Phone: [facility] Start: 12-13-2023 End: 12-13-[address] Carlin Adam Work Phone: [facility] Work Phone: Start: 12-13-2023 End: 12-13-[address] Carlin Adam Work Phone: [facility]-Cardiovascula r Services Work Phone: Start: 11-03-2023 End: 11-03-[address] [facility] Work Phone: Start: 10-26-2023 Non-patient / Non-visit Dr. Jaylyn Adam Work Phone: [facility] Start: 10-25-2023 End: 10-25-[address] Carlin Adam Work Phone: [facility] Work Phone: Start: 10-25-2023 End: 10-25-[address] Carlin Adam Work Phone: [facility]-Pulmonary Services/Neurology Work Phone: Start: 09-15-2023 End: 09-15-[address] Carlin Adam Work Phone: [facility] [place] Work Phone: Start: 08-27-2023 End: 08-27-2023 Medication Leonora Saldivar PA-C Work Phone: [facility] Start: 08-27-2023 End: 08-27-2023 Medication Leonora Saldivar PA-C Work Phone: [facility] Start: 08-26-2023 End: 08-26-2023 ambulatory [facility] Start: 08-09-2023 End: 08-09-2023 Office outpatient visit 40 minutes Leonora Saldivar PA-C Work Phone: [facility] Start: 07-22-2023 End: 07-22-2023 Orders Leonora Saldivar PA-C Work Phone: [facility] Start: 07-19-2023 End: 07-19-2023 Medication Leonora Saldivar PA-C Work Phone: [facility] Start: 07-13-2023 End: 07-13-2023 Patient encounter procedure Leonora Saldivar PA-C Work Phone: [facility] Start: 07-08-2023 ambulatory [facility] Start: 07-08-2023 End: 07-08-2023 ambulatory [facility] Start: 06-11-2023 End: 06-14-2023 Periodic preventive med est patient 40-64yrs Leonora Saldivar PA-C Work Phone: [facility] Start: 06-11-2023 End: 06-14-2023 Physical examination Leonora Saldivar PA-C Work Phone: [facility]; [facility] Start: 05-20-2023 End: 05-20-2023 Orders Leonora Saldivar PA-C Work Phone: [facility] Start: 05-19-2023 End: 05-19-2023 Orders Leonora Saldivar PA-C Work Phone: [employer] Start: 04-26-2023 End: 04-26-2023 Orders Leonora Saldivar PA-C Work Phone: [facility] Start: 10-15-2021 End: 10-15-2021 Office outpatient visit 15 minutes Leonora Saldivar PA-C Work Phone: [facility] Start: 08-04-2021 End: 08-04-2021 Office outpatient visit 15 minutes Leonora Saldivar PA-C Work Phone: [facility] Start: 06-16-2019 End: 06-16-2019 Orders Leonora Saldivar PA-C Work Phone: [facility] Start: 01-26-2019 End: 01-26-2019 Office outpatient visit 15 minutes Leonora Saldivar PA-C Work Phone: [facility] Start: 01-12-2019 End: 01-12-2019 Historical Summary Leonora Saldivar PA-C Work Phone: [facility] Start: 11-29-2018 End: 11-29-2018 Office outpatient visit 15 minutes Leonora Saldivar PA-C Work Phone: [facility] Start: 10-05-2018 End: 10-05-2018 Telephone follow-up Leonora Saldivar PA-C Work Phone: [facility] Start: 08-26-2018 End: 08-26-2018 Office outpatient visit 15 minutes Leonora Saldivar PA-C Work Phone: [facility] Start: 06-03-2018 End: 06-03-2018 Office outpatient visit 15 minutes Leonora Saldivar PA-C Work Phone: [facility] Start: 05-27-2018 End: 05-27-2018 Office outpatient visit 15 minutes Leonora Saldivar PA-C Work Phone: [facility] Start: 01-25-2017 End: 01-25-2017 Orders Leonora Saldivar PA-C Work Phone: [employer] Start: 01-13-2017 End: 01-13-2017 Orders Leonora Saldivar PA-C Work Phone: [employer] Start: 01-05-2017 End: 01-05-2017 Orders Leonora Saldivar PA-C Work Phone: [facility] Start: 01-04-2017 End: 01-04-2017 Patient encounter procedure Leonora Saldivar PA-C Work Phone: [facility] Start: 01-04-2017 End: 01-04-2017 Patient encounter status Leonora Saldivar PA-C Work Phone: [employer] Start: 12-12-2015 End: 12-12-2015 Medication Leonora Saldivar PA-C Work Phone: [employer] Start: 12-09-2015 End: 12-09-2015 Office outpatient visit 15 minutes Leonora Saldivar PA-C Work Phone: [facility] Start: 10-09-2015 End: 10-09-2015 Patient encounter procedure Leonora Saldivar PA-C Work Phone: [facility] Start: 05-24-2014 End: 05-24-2014 Orders Leonora Saldivar PA-C Work Phone: [facility] Start: 04-24-2014 End: 04-24-2014 Orders Leonora Saldivar PA-C Work Phone: [facility] Start: 03-20-2014 End: 03-20-2014 Patient encounter procedure Leonora Saldivar PA-C Work Phone: [facility] Start: 02-26-2012 End: 02-26-2012 Patient encounter procedure Leonora Saldivar PA-C Work Phone: [facility] Start: 02-26-2012 End: 02-26-2012 Routine gynecological examination Leonora Saldivar PA-C Work Phone: [facility]; [facility] Start: 02-12-2012 End: 02-12-2012 Medication Leonora Saldivar PA-C Work Phone: [facility]. Start: 02-08-2012 End: 02-08-2012 Historical Summary Leonora Saldivar PA-C Work Phone: [facility]. Start: 02-08-2012 End: 02-08-2012 Patient encounter procedure Leonora Saldivar PA-C Work Phone: [facility] Start: 05-12-2011 End: 05-12-2011 Patient encounter procedure Leonora Saldivar PA-C Work Phone: [facility] Follow-up encounter Leonora arcos PA-C Work Phone: [facility].; [facility]. Patient encounter status Lady Mcbride [facility].; [facility]. Patient encounter status Bridget Smith MA [facility].; [facility] Physical examination Leonora Sherman uvaldo PA-C Work Phone: [facility].; [facility]. Routine gynecologica l examination Lady Bowers LPN [facility].; [facility]. Procedures Date Procedure Procedure Detail Performing Clinician Start: 08-06-2025 CT angiography of coronary arteries Leonora Saldivar PA Work Phone: Start: 06-18-2025 MRI of joint of lowe r extremity Leonora Bean PA Work Phone: Start: 05-30-2025 End: 05-30-2025 Most Recent Cardio Labs Leonora Saldivar PA- C Work Phone: Start: 05-30-2025 End: 05-30-2025 Most Recent Cardio Report Leonora Saldivar PA-C Work Phone: Start: 04-23-2025 End: 04-23-2025 Screening colonoscopy Elizabeth Beard MA Comment on above: [facility], polyps repeat 5 -10 years Start: 04-23-2025 Colonoscopy Leonora Be an PA Work Phone: Start: 01-08-2025 End: 01-09-2025 Radex foot complete minimum 3 views Leonora J Saldivar PA-C Work Phone: Start: 12-11-2024 CT of chest Leonora Be an PA Work Phone: Start: 07-13-2024 End: 07-12-2024 Depression screening Leonora J Saldivar PA-C Work Phone: Start: 07-13-2024 End: 07-12-2024 Pos clin depres scrn f/u doc Leonora J Saldivar PA-C Work Phone: Start: 07-13-2024 End: 07-12-2024 Scr dep neg, no plan reqd Leonora J Saldivar PA-C Work Phone: Start: 06-23-2024 End: 06-23-2024 CBC panel - Blood by Automated count Bridget Smith MA Start: 06-23-2024 End: 06-23-2024 Lab findings surveillance Bridget Smith MA Comment on above: Results:. 112 in CMP Start: 06-23-2024 End: 06-23-2024 Lipid panel Bridget Smith MA Start: 06-11-2023 End: 07-09-2023 Brncdilat rspse spmtry pre&post-brncdilat admn Leonora J Saldivar PA-C Work Phone: Start: 06-11-2023 End: 06-16-2023 Chest x-ray Leonora J Saldivar PA-C Work Phone: Start: 06-11-2023 End: 06-11-2023 Depression screening Leonora J Saldivar PA-C Work Phone: Start: 06-11-2023 End: 06-11-2023 Scr dep neg, no plan reqd Leonora Melton Saldivar PA-C Work Phone: Start: 05-20-2023 End: [...] 03-07-2020 Myocardial spect multiple studies Rubio Craft CYLINDER SANDER OPERATOR-C Work Phone: Start: 01-04-2017 End: 01-04-2017 Ecg routine ecg w/least 12 lds i&r only Rubio Craft CYLINDER SANDER OPERATOR-C Work Phone: Start: 12-09-2015 End: 12-09-2015 [...] delivery, antepartum condition or complication Laurita Jamison APRN.FIBREGLASS LAY UP WORKER Work Phone: section Elizabeth lynn MA Comment on above: 2006 section Elizabeth lynn MA Comment on above: 2006 section Bridget cary MA Comment on above: 2006 section Radha Lyons RN Comment on above: 2006 section Elizabeth lynn MA Comment on above: 2006 H/O: hysterectomy [...] tube Elizabeth Beard MA Total hysterectomy Elizabeth bear MA Total hysterectomy Elizabeth Youngblood santhoshcaroline MA Total hysterectomy Bridget benitez MA Total hysterectomy Radha Lyons RN Total hysterectomy Elizabeth bear MA Plan of Treatment Date Care Activity Detail Author Start: 07-22-2033 Urine microalbumin profile DTaP,Tdap,Td Vaccine (2 - Td or Tdap) [facility] Start: 08-20-2025 [facility] Start: 08-06-2025 End: 08-06-2025 [facility] Start: 08-06-2025 Oxygen therapy [facility] Start: 08-06-2025 Following clinical pathway protocol [facility] Start: 07-16-2025 Patient encounter procedure Medical; PHYSICAL - AWV [facility] Start: 16-Jul-2025 10:00-04:00 BENOIT Saldivar Appointment Request [facility], [facility] Start: 07-02-2025 Nursing evaluation o f patient and report [facility] Start: 07-02-2025 Comprehensive metabo lic panel [facility]; [facility], [facility]. Start: 07-02-2025 Hemoglobin glycosyla aura a1c [facility]; [facility], [facility] Start: 07-02-2025 Blood count complete auto&auto difrntl wbc [facility]; [facility], [facility]. Start: 07-02-[address] [facility]; [facility], [facility] Start: 05-30-2025 End: 05-30-2025 Evaluation of diagnostic study results [facility] Start: 04-23-2025 Colsc flx w/rmvl of tumor polyp lesion snare tq COLONOSCOPY W/LESION REMOVAL [facility] Start: 04-23-2025 Patient discharge [facility] Start: 04-16-2025 Patient referral [facility] [employer] Work Phone: Start: 04-01-2025 Polysomnography [facility] Start: 03-29-2025 End: 03-29-2025 Patient encounter procedure 03/29/2025 11:00 AM EDT Office Visit OB/Gynecology [address] [place] [address] Laurita Jamison APRN.FIBREGLASS LAY UP WORKER [address] [place] [address] Annual OB/Gynecology Comment on above: Annual Start: 03-23-2025 Echo tthrc r-t 2d w/wom-mode compl spec&colr d TTE W/DOPPLER COMPLETE [facility] Start: 01-08-2025 Radex foot complete minimum 3 views Foot, Right Complete x-ray ([id number]) Start: 08-Jan-2025 Intent [facility]; [facility] Start: 01-08-2025 Patient encounter procedure Medical; EXTENDED RTN - 6 MO RTN [facility] Start: 08-Jan-2025 10:50-05:00 BENOIT Saldivar Appointment Request [facility] Start: 07-13-2024 Patient encounter procedure Medical; PHYSICAL - AWV [facility]. Start: 13-Jul-2024 09:50-04:00 BENOIT Saldivar Appointment Request [facility] Start: 07-09-2024 Covid-19 Vaccine ( season) Covid-19 Vaccine ( season) [facility] Start: 07-09-2024 Influenza vaccination [facility] Start: 07-03-2024 Patient encounter procedure Medical; PHYSICAL - AWV [facility] Start: 03-Jul-2024 10:50-04:00 BENOIT Saldivar Appointment Request [facility] Start: 06-23-2024 Blood count complete auto&auto difrntl wbc CBC, PLATELETS & AUT DIFF (F) ([id number]) Start: 23-Jun-2024 Request [facility] Start: 06-23-2024 Comprehensive metabo lic panel CMP w/ GFR* ([id number]) Start: 23-Jun-2024 Request [facility] Start: 06-23-2024 Lipid panel LIPID PANEL ([id number]) Start: 23-Jun-2024 Request [facility]; [facility] [facility] Start: 06-23-2024 Nursing evaluation o f patient and report Medical; Nurse visit - fasting labs - RJB [facility] Start: 23-Jun-2024 08:20-04:00 NURSE, FLOAT Appointment Request [facility] Start: 05-29-2024 End: 08-28-2024 25-hydroxyvitamin D3 [Mass/volume] in Serum or Plasma VITAMIN D 25 HYDROXY Lab Routine Encounter for vitamin deficiency screening Expected: 05/29/2024, Expires: 08/28/2024 [facility] Work Phone: Comment on above: Expected: 05/29/2024 , Expires: 08/28/2024 Start: 05-29-2024 End: 08-28-2024 Comprehensive metabolic 2000 panel - Serum or Plasma COMPREHENSIVE METABOLIC PANEL Lab Routine Screening for diabetes mellitus Screening for metabolic disorder Expected: 05/29/2024, Expires: 08/28/2024 [facility] Comment on above: Expected: 05/29/2024 , Expires: 08/28/2024 Start: 05-29-2024 End: 08-28-2024 Follitropin [Units/volume] in Serum or Plasma FOLLICLE STIMULATING HORMONE Lab Routine Hot flashes Expected: 05/29/2024, Expires: 08/28/2024 [facility] Comment on above: Expected: 05/29/2024 , Expires: 08/28/2024 Start: 05-29-2024 End: 08-28-2024 Hemoglobin A1c in Blood HEMOGLOBIN A1C Lab Routine Screening for diabetes mellitus Expected: 05/29/2024, Expires: 08/28/2024 [facility] Comment on above: Expected: 05/29/2024 , Expires: 08/28/2024 Start: 05-29-2024 End: 08-28-2024 Insulin [Units/volume] in Serum or Plasma INSULIN ASSAY BLOOD Lab Routine Screening for diabetes mellitus Expected: 05/29/2024, Expires: 08/28/2024 [facility] Comment on above: Expected: 05/29/2024 , Expires: 08/28/2024 Start: 05-29-2024 End: 08-28-2024 Lipid 1996 panel - Serum or Plasma LIPID PANEL BASIC Lab Routine Screening cholesterol level Expected: 05/29/2024, Expires: 08/28/2024 [facility] Comment on above: Expected: 05/29/2024 , Expires: 08/28/2024 Start: 05-29-2024 End: 08-28-2024 Thyrotropin [Units/volume] in Serum or Plasma THYROID STIMULATING HORMONE Lab Routine Unintended weight gain Expected: 05/29/2024, Expires: 08/28/2024 [facility] Comment on above: Expected: 05/29/2024 , Expires: 08/28/2024 Start: 05-21-2024 Screening for malign ant neoplasm of breast Mammogram Screening [facility] Start: 05-01-2024 End: 05-01-2024 Patient encounter procedure 05/01/2024 12:45 PM EDT Office Visit OB/Gynecology [address] [place] [address] Laurita Jamison APRN.FIBREGLASS LAY UP WORKER [address] [facility] [address] Follow up OB/Gynecology Comment on above: Follow up Start: 01-04-2024 Patient encounter procedure Medical; EXTENDED RTN - 4 mo rtn [facility], [facility] Start: 04-Jan-2024 10:50 BENOIT Saldivar Appointment Request [facility], [facility]. Start: 11-08-2023 Behavioral Health Screening Behavioral Health Screening [facility] Start: 11-03-2023 Patient referral [facility] Work Phone: Start: 07-09-2023 Covid-19 Vaccine () Covid-19 Vaccine () [facility] Start: 05-19-2023 Blood count complete auto&auto difrntl wbc [facility]. Start: 07-03-2022 Diabetes Screening Diabetes Screenin g [facility] Start: 01-12-2022 Screening for malign ant neoplasm of cervix Pap Testing [facility] Start: 01-13-2020 Screening for malign ant neoplasm of cervix Cervical Cancer Screening [facility] Start: 2019 Lipid panel Lipid Screening [facility] Start: 2019 Screening for malign ant neoplasm of colon [facility] Start: 2004 Screening for malign ant neoplasm of cervix HPV Testing [facility] Start: 2004 Zoledronic acid therapy Alpha- 1 Antitrypsin Deficiency Screening [facility] Start: 1993 Hepatitis B Vaccine (1 of 3 - + 3-dose series) Hepatitis B Vaccine (1 of 3 - + 3-dose series) [facility] Start: 1992 Annual PCP Team Black Oxide Operator ariella Disease Visit Annual PCP Team Chronic Disease Visit [facility] Start: 1992 Anxiety Screening Anxiety Screening [facility] Start: 1992 Depression Screening Depression Scre ening [facility] Start: 1992 HIV screening HIV Screening [facility] Start: 1980 Pneumococcal vaccination Pneum ococcal Vaccine (1 of 2 - PCV) [facility] Basic metabolic 2008 panel with ionized calcium - Serum or Plasma [facility] CBC W Auto Different ial panel - Blood [facility] CT Chest [facility] CT Chest [facility] Natriuretic peptide. B prohormone N-Terminal [Mass/volume] in Serum or Plasma [facility] Patient referral [facility] Work Phone: Radionuclide imaging of perfusion of myocardium under exercise stress [facility] dexAMETHasone so d phos (bulk) 100 % powder Ordered: 27-May-2018 MD Carlin Adam [facility]. Immunizations Immunization Date Immunization Notes Care Provider Fa bell 07-22-2023 tetanus toxoid, redu beatriz diphtheria toxoid, and acellular pertussis vaccine, adsorbed Leonora Saldivar PA-C Work Phone: [facility] [employer]. Comment on above: Site: Right ArmVIS G iven: * Tdap (06/13/21) 01-24-2009 tetanus and diphther ia toxoids, adsorbed, preservative free, for adult use (2 Lf of tetanus toxoid and 2 Lf of diphtheria toxoid) Leonora Saldivar PA-C Work Phone: [facility] Payers Date Payer Category Payer Self-pay [id number] 2022 Medicaid UHC MEDICAID UHC [employer] MEDICA[place] [id number] 2022-Present [phone] [address] [place] [address] Medicaid [id number] 2022 Unknown [id number] 1974 Unknown [id number] 297 1974 Unknown [id number]. 297 1974 Unknown [id number]. 297 1974 Unknown [id number]. 297 1974 Unknown [id number] [id number]. 651 1974 Unknown [id number] [id number]. 651 1974 Unknown [id number]. 651 Private Health Insurance [id number] Unknown [facility] Unknown [id number] 462 Unknown [id number]. 462 Unknown [id number]. 462 Unknown [id number]. 462 Unknown [id number] 2.16.840.1.257745.3.579.2. 462 Unknown [id number] 2.16.840.1.406604.3.579.2. 462 Unknown [id number] 2.840.1.442647.3.579.2. 462 Unknown [id number] 2.840.1.148946.3.579.2. 462 Unknown [id number] 2.840.1.495600.3.579.2. 462 Unknown [id number] 2.840.1.485149.3.579.2. 462 Unknown [id number] 2.840.1.450913.3.579.2. 462 Unknown [id number] 2.840.1.328876.3.579.2. 462 Unknown [id number] 2.840.1.211781.3.579.2. 462 Unknown [id number] 2.840.1.374841.3.579.2. 462 Unknown [id number] 2.840.1.215008.3.579.2. 462 Unknown [id number] 2.840.1.043253.3.579.2. 462 Unknown [id number] 2.16840.1.317189.3.579.2. 462 Unknown [id number] 2.16.840.1.042081.3.579.2. 462 Unknown [id number] 2.16840.1.344270.3.579.2. 462 Unknown [id number] 2.840.1.661168.3.579.2. 462 Unknown [id number] 2.16.840.1.001341.3.579.2. 462 Unknown [id number] 2.16.840.1.800324.3.579.2. 462 Social History Date Type Detail Facility Start: 09-15-2023 End: 01-03-2024 Tobacco smoking status WYIS Unknown if ever smoked [facility] Start: 01-10-2019 Non-smoker [facility] Start: 1975 Sex Assigned At Female [facility] Alcohol Use: Alcohol Use: ; Occasional alcohol use. 7 or fewer drinks per week. [facility] Start: 03-27-2024 End: 07-24-2024 Caffeine Use Caffeine Use [employer]; [employer] Tobacco Use: Tobacco Use: ; F ormer smoker. [employer] Occasional alcohol use [facility] [employer]; [employer] Work Phone: Smokes tobacco daily [facility] Work Phone: Smokes 1 pack of cigarettes per day [employer]; [employer]. Work Phone: Smoker [employer]; [employer]. Work Phone: Start: 03-27-2024 End: 04-23-2025 Ex-smoker [employer]; [facility] Work Phone: History of tobacco use Cigarette Smoker [facility] History of tobacco use Passive smoker [facility] Start: 03-27-2024 End: 07-24-2024 Tobacco use and exposure Smokeless tobacco non-user [facility] Start: 03-27-2024 End: 07-24-2024 Alcohol intake Current non-drinker of alcohol (finding) [facility] Start: 03-27-2024 End: 07-24-2024 Tobacco use panel [facility] National Score (1-100), lower number is lower risk 83 [facility] Start: 1975 Sex Assigned At Not on file [facility] NEGATED: Highlighted row Not [facility] Goals Date Patient Goal Desired Activity /State Functional Status Date Assessment Result Facility 08-06-2025 Functional status [facility] Work Phone: Mental Status Date Assessment Result Facility 08-06-2025 Cognitive function Voice/Name [facility] Work Phone: 04-23-2025 Cognitive function Voice/Name [facility] Work Phone: Clinical Notes 10-26-2023 to 08-07-2025 Note Date & Type Note Facility 08-07-2025 Radiology Diagnostic study note [facility] Imaging Services [address] [place] [address] Cardiac Only MR#: [id number] Acct: [id number] Name: LILLIE HOLLAND Rep #: [id number] : 1975 F 49 From: Dereck Garcia MD PCP: LINA Mckeon Status: REG CLI Study:Limited Chest CT Cardiac Only Date of E xam: 08/06/25 Exam# [id number] Ordering Dr: Scotty Granados PROCEDURE: LIMITED CHEST CT CARDIAC ONLY 08/06/2025 REASON FOR EXAM: CHEST PAIN, UNSPECIFIED, OTHER FORMS OF DYSPNEA TECHNIQUE: Procedure Code: CTCCTACHLIM Modality: CT Procedure: LIMITED CHEST CT CARDIAC ONLY One or more dose reduction techniques were used (e.g., Automated exposure control, adjustment of the mA and/or kV according to patient size, use of iterative reconstruction technique). RADIATION DOSE SUMMARY: CTDlvol: 57.53 mGy DLP: 914.68 mGycm COMPARISON: Chest CT of 12/11/2024. CT/Limited Chest CT Cardiac Only IMPRESSION: Diffuse fatty infiltration of the liver is seen. Limited imaging of the lungs demonstrates no acute process. No pleural effusion or pneumothorax is seen in visualized areas. No adenopathy is noted. The visualized upper abdomen demonstrates no other significant abnormality. Reading Location: [id number] CC: LINA Mckeon; LINA Faulkner ~ Product Evangelist: Signed [facility] 08-06-2025 Radiology Diagnostic study note [facility] Imaging Services [address] [place] [address] 08/06/251852 MR#: [id number] Acct: [id number] Name: LILLIE HOLLAND Rep #:[id number] : 1975 49 From: Simon Del Rosario MD PCP: LINA Mckeon Status:REG CLI Y Location: CT CCTA w/Cont Coronary Arteries Date of Study:: 08/06/25 Dyspnea on exertion Coronary Calcium Scoring: High-resolution Computed Tomographic imaging of the chest was performed on [08/06/2025], with particular attention paid to the coronary arteries. Intravenous contrast agent was administered per protocol and images reconstructed and displayed. LEFT MAIN CORONARY ARTERY: Arises from the left main coronary cusp no significant atherosclerosis is noted [] LEFT ANTERIOR DESCENDING CORONARY ARTERY: Arises from the left main coronary artery and courses towards the apex of the ventricle with no significant atherosclerotic plaque present or obstructive lesions noted. [] LEFT CIRCUMFLEX CORONARY ARTERY: Nondominant vessel with no significant atherosclerotic plaquing noted and no obstructive lesions noted. [] RIGHT CORONARY ARTERY: Dominant right coronary artery with no atherosclerotic plaquing or obstructive lesions noted. [] THORACIC AORTA: [] PULMONARY ARTERY: [] LEFT ATRIUM/APPENDAGE: [] MITRAL VALVE: [] AORTIC VALVE: [] LEFT VENTRICLE: [] CORONARY CALCIUM SCORE: Not done [] Calcium Scoring Interpretation: Different methods to categorize the overall amount of coronary plaque. Overall amount CAC SIS Visual of coronary plaque P1 Mild -100 <2 1-2 vessels with mild amount of plaque P2 Moderate 101-300 3-4 1-2 vessels with moderate amount, 3 vessels with mild amount of plaque P3 Severe 301-999 5-7 3 vessels with moderate amount, 1 vessel with severe amount of plaque P4 Extensive >1000 >8 2-3 vessels with severe amount of plaque Conclusion: No coronary atherosclerosis or stenosis present. 08/06/251853 Date __ _ Simon Del Rosario MD Cosigner Signature (if applicable): Date ___ CC: Dr. Simon Del Rosario MD; LINA Mckeon; LINA Faulkner ~ Signed [facility] Work Phone: 08-06-2025 Progress note [facility] 04-23-2025 Consult note [facility] 04-23-2025 History and physi norbert note Note Date/Time April 23, 2025 7:34am [facility] Medical Records Department [address] [place] [address] History & Physical Exam 04/23/25 0726 MR#: [id number] Acct: [id number] Name: LILLIE HOLLAND Rep #:[id number] : 1975 49 From: Maddy Amador MD PCP: LINA Mckeon Status:[facility] Location: [place] [address] HPI - General General Date of Service: [...] pain/nausea/vomiting. Patient's reflux is controlled with omeprazole. [facility] Medical History (Updated 04/23/25 @ 07:29 [...] 06:58) Discharge Is Pt Admitted From a Senior Living, or a Custodial: No After D/C, Where Do you Plan [...] Dr. Maddy Amador MD; LINA Mckeon~ Signed [facility] Work Phone: 1(936) 303-956506-16-2025 Procedure note [facility] Medical Records Department [address] [place] [address] Colonoscopy Report MR#: [id number] Acct: [id number] Name: LILLIE HOLLAND Rep #:[id number] : 1975 49 From: Maddy Amador MD PCP: LINA Mckeon Status:REG [facility] Patient Name: Lillie Holland Procedure Date: 04/23/2025 [...] pathology results. Procedure Code(s): --- Professional --- 25456, PT, Colonoscopy, flexible; with removal of tumor(s), polyp(s), or other lesion(s) by snare technique Diagnosis Code(s): --- Professional --- Z86.010, Personal history of colonic polyps D12.5, Benign neoplasm of sigmoid colon CPT copyright 2021 [employer]. All rights reserved. The codes documented in this report are preliminary and upon independent living instructor review may be revised to meet current compliance requirements. MD Maddy Jc MD 04/23/2025 8:41:10 AM This report has been signed electronically. Number of Addenda: 0 Note Initiated On: 04/23/2025 8:05 AM 04/23/25840 Date _ Maddy Amador MD Cosigner Signature: Date (if indicated) CC: Dr. Maddy Amador MD; LINA Mckeon ~ Date Dictated: 04/23/25804 Date Transcribed: Product Evangelist: TR Signed [facility]06-16-2025 Procedure note [facility] Medical Records Department [address] [place] [address] Operative Report - CC Letter MR#: [id number] Acct: [id number] Name: HEATHERLILLIE CECILE Rep #:[id number] : 1975 49 From: Maddy Amador MD PCP: LINA Mckeon Status:REG [facility] 04/23/2025 Lina Mckeon Re : Colonoscopy procedure for Lillie Holland Dear Bill This procedure was performed on Wednesday, [...] Amador MD; LINA Mckeon ~ Date Dictated: 04/23/25 08 Date Transcribed: Product Evangelist: TR Signed [facility]06-16-2025 Consult note [facility] Medical Records Department [address] [place] [address] Pre-Anesthesia Evaluation 04/23/25 0747 MR#: [id number] Acct: [id number] Name: LILLIE HOLLAND Rep #:[id number] : 1975 49 From: Yovani Walker MD PCP: LINA Mckeon Status:REG SDC Y Race: C Location: [place] [address]- ASA Classification* ASA Classification ASA Classification: 3 [...] Procedure(s): COLONOSCOPY-OA Anesthesia History Anesthesia History - locker room manager: Anesthesia History - locker room manager Hx Hospitalization Yes: NAUSEA WITH CSECTION 04/23/25 [...] Oral intake: Last Oral Intake NPO since 05:04/23/25 06:59 Meds taken in AM with sips of No 04/23/25 06:59 water? Meds patient instructed to take am of surgery Any additional information?: Yes NPO since: : (Patient had black coffee at 5:30 AM.) Meds takenin AM with sips of water?: Yes PONV PONV - locker room manager: PONV - locker room manager Female Yes 04/19/25 12:09 HX of Motion [...] 04/23/25 06:59 Respiratory Assessment Respiratory Assessment - locker room manager: Respiratory Tract Infection Hx - locker room manager Hx Respiratory Tract Infection No 04/23/25 07:30 STOP Sleep Apnea STOP Sleep Apnea - locker room manager: STOP Sleep Apnea - locker room manager Hx Hypertension No 04/23/25 07:30 Hx Sleep [...] Tobacco Use History Tobacco Use History - locker room manager: Tobacco Use History - locker room manager Tobacco Use Smoking Status Former smoker 04/23/25 07:30 Hx Tobacco Use Yes 04/19/25 12:09 Years Smoking Packs Smoked per Day Smoking Cessation Date was Yes - quit smoking within 15 04/19/25 12:09 within the last 15 years years Hx Smoking Cessation Date Hx Smoking Cessation Counseling Hematologic Medial History Hematologic Hx - locker room manager: Hematologic Medical Hx - nail feeder Hx of Blood Transfusion No 04/19/25 12:09 [...] confused, unrespo /Reproduction History /Reproductive History - locker room manager: /Reproductive Hx- locker room manager Hx Now No 04/23/25 07:30 Gestational Age [...] MD Cosigner Signature: Date CC: ~ Signed [facility]06-16-2025 History and physical note [facility] Medical Records Department [address] [place] [address] History & Physical Exam 04/23/25 0726 MR#: [id number] Acct: [id number] Name: LILLIE HOLLAND Rep #:[id number] : 1975 49 From: Maddy Amador MD PCP: LINA Mckeon Status:[facility] Location: [place] [address] HPI - General General Date of Service: [...] pain/nausea/vomiting. Patient's reflux is controlled with omeprazole. [facility] Medical History (Updated 04/23/25 @ 07:29 [...] 06:58) Discharge Is Pt Admitted From a Senior Living, or a Custodial: No After D/C, Where Do you Plan [...] Dr. Maddy Amador MD; LINA Mckeon~ Signed [facility]06-16-2025 [facility] Medical Records Department [address] [place] [address] History Physical Exam 04/23/25 0726 MR#: [id number] Acct: [id number] Name: LILLIE HOLLAND Rep #: [id number] : 1975 49 From: Maddy Amador MD PCP: LINA Mckeon Status:REG [facility] Location: [place] [address] HPI - General General Date of Service: [...] pain/nausea/vomiting. Patient's reflux is controlled with omeprazole. [facility] Medical History (Updated 04/23/25 @ 07:29 [...] No Do You Of (more content not included)...[facility]06-09-2025 Evaluation note* Diagnosis Onset Date Resolution Status Admit Date Obstructive sleep apnea acute J 2024 11:13am Diastolic dysfunction chronic Apr 11:13am Dyspnea chronic April 16, 2025 11:13am Fibromyalgia chronic April 16 11:13am Obesity chronic April 16, 2025 11:13am Smoking greater than 20 pack years chronic April 16, 2025 1 1:13am Hx of colonic polyp acute April 23, 2025 6:35am Chest pain acute May 30 11:06am Obstructive sleep apnea acute S epteer 2024 10:13am Asthma-COPD overlap syndrome chronic August 06, 2025 10:13am Diastolic dysfunction chronic Sep tember 2024 10:13am Fibromyalgia chronic August 062024 10:13am Obesity chronic July 10:13am Smoking greater than 20 pack years chronic August 06, 2025 10:13am [facility] Work Phone: 1(461) 192-305604-28-2025 Evaluation note* Diagnosis Onset Date Resolution Status Admit Date Daytime hypersomnia acute March 05, 2025 12:53pm Obesity acute March 05 12:53pm Dyspnea chronic March 05 12:53pm Fibromyalgia chronic March 05, 2025 12:53pm Smoking greater than 20 pack years chronic March 05, 2025 12:53pm [facility] Work Phone: 1(132) 175-446004-28-2025 Evaluation note* Diagnosis Onset Date Resolution Status Admit Date Daytime hypersomnia acute March 05, 2025 12:53pm Obesity acute March 05 12:53pm Dyspnea chronic March 05 12:53pm Fibromyalgia chronic March 05, 2025 12:53pm Smoking greater than 20 pack years chronic March 05, 2025 12:53pm Diastolic dysfunction acute Thomas 2024 11:13am Obesity acute April 16, 2025 11:13am Obstructive sleep apnea acute J une 2024 11:13am Fibromyalgia chronic April 16 11:13am Smoking greater than 20 pack years chronic April 16, 2025 1 1:13am [facility] Work Phone: 1(121) 411-179704-28-2025 Evaluation note* Diagnosis Onset Date Resolution Status [...] colonic polyp acute April 23, 2025 6:35am [facility] Work Phone: 1(269) 766-597904-28-2025 Evaluation note* Diagnosis Onset Date Resolution Status Admit Date Daytime hypersomnia acute March 05, 2025 12:53pm Dyspnea chronic March 05 12:53pm Fibromyalgia chronic March 05, 2025 12:53pm Obesity chronic March 05 12:53pm Smoking greater than 20 pack years chronic March 05, 2025 12:53pm Diastolic dysfunction acute Thomas e 2024 11:13am Obstructive sleep apnea acute J une 2024 11:13am Dyspnea chronic April 16, 2025 11:13am Fibromyalgia chronic April 16 11:13am Obesity chronic April 16, 2025 11:13am Smoking greater than 20 pack years chronic April 16, 2025 1 1:13am Hx of colonic polyp acute April 23, 2025 6:35am Chest pain acute May 30 11:06am [facility] Work Phone: 1(834) 272-384509-16-2024 NoteHNO ID: [id number] Author: LAURITA JAMISON APRN.[employer] L[employer] UP WORKER Service: ? 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 Note in patient's chart states to call after 4:00 PM. Leonor Hernandez RN [facility]08-09-2024 Miscellaneous Notes* Telephone Encounter - Leonor Hernandez RN - 06/16/2024 10:01 AM EDT No lab results found per [facility]. Note in patient's chart states to call after 4:00 PM. Leonor Hernandez RN * Telephone Encounter - Leonor Hernandez RN - 06/15/2024 3:47 PM EDT Request faxed. Leonor Hernandez RN * Telephone Encounter - Laurita Jamison APRN.CNP - 06/15/2024 3:31 PM EDT Can we contact [facility] to see if they have any labs results since 05/29. Pt was to get labs done there and I haven't receive anything. Laurita Jamison APRN.CNP [facility] Telephone encounter Note * Telephone Encounter - Leonor Hernandez RN - 06/15/2024 3:47 PM EDT Request faxed. Leonor Hernandez RN [facility]08-08-2024 Telephone encounter Note* Telephone Encounter - Laurita Jamison APRN.CNP - 06/15/2024 3:31 PM EDT Can we contact [facility] to see if they have any labs results since 05/29. Pt was to get labs done there and I haven't receive anything. Laurita Jamison APRN.CNP [facility]07-22-2024 NoteHNO ID: [id number] Author: LAURITA JAMISON APRN.CNP Service: ? 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 Laurita Jamison APRN.CNP Medical Decision Making: Problems: Moderate: New problem with uncertain prognosis Data: Unique test(s) ordered: 3+ Risk: Moderate: Drug management Medical Decision Making Level: 4 - Moderate . [facility]05-[facility]-2024 NoteHNO ID: [id number] Author: LAURITA JAMISON APRN.CNP Service: ? 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 Lillie is a 48 year old who presents for an annual gynecologic exam with complaints, menopausal symptoms and bladder issues . 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 History Comments: Sexual Activity: Yes; Male Contraception: Tubal Ligation PAST MEDICAL HISTORY Diagnosis Date Abnormal uterine bleeding (AUB) 01/12/2017 COPD (chronic obstructive pulmonary disease) ([facility]) Dysthymic disorder Depression (non-psychotic), Endometriosis Fibromyalgia Menorrhagia [...] and current medication updated:Yes EXAM: Ht 5' 3" (1.60m) Wt 156 lb 9.6 oz (71.0kg) [...] external genitalia normal, normal Bartholin's glands, urethra, [employer]'s glands, no vulvar lesions, good vaginal support, [...] Z12.31 - order give for DEANDRE Jamison APRN.CNP[facility]05-[facility] History of Present illness Narrative* Laurita Jamison APRN.[employer] LAY UP WORKER - 03/27/2024 10:27 AM EDT Specialist Employee Labor Relations offered: Patient declines. Lillie is a 48 year old who presents for an annual gynecologic exam with complaints, menopausal symptoms and bladder issues . 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 Note Date/Time April 23, 2025 7:54 am [facility] Medical Records Department [address] [place] [address] Pre-Anesthesia Evaluation 04/23/25 0747 MR#: [id number] Acct: [id number] Name: LILLIE HOLLAND Rep #:[id number] : 1975 49 From: Yovani Walker MD PCP: LINA Mckeon Status:REG SDC Y Race: C Location: [place] [address] ASA Classification* ASA Classification ASA Classification: 3 [...] Procedure(s): COLONOSCOPY-OA Anesthesia History Anesthesia History - locker room manager: Anesthesia History - locker room manager Hx Hospitalization Yes: NAUSEA WITH CSECTION 04/23/25 [...] sips of water?: Yes PONV PONV - locker room manager: PONV - locker room manager Female Yes 04/19/25 12:09 HX of Motion [...] 04/23/25 06:59 Respiratory Assessment Respiratory Assessment - locker room manager: Respiratory Tract Infection Hx - locker room manager Hx Respiratory Tract Infection No 04/23/25 07:30 STOP Sleep Apnea STOP Sleep Apnea - locker room manager: STOP Sleep Apnea - locker room manager Hx Hypertension No 04/23/25 07:30 Hx Sleep [...] Tobacco Use History Tobacco Use History - locker room manager: Tobacco Use History - locker room manager Tobacco Use Smoking Status Former smoker 04/23/25 07:30 Hx Tobacco Use Yes 04/19/25 12:09 Years Smoking Packs Smoked per Day Smoking Cessation Date was Yes - quit smoking within 15 04/19/25 12:09 within the last 15 years years Hx Smoking Cessation Date Hx Smoking Cessation Counseling Hematologic Medial History Hematologic Hx - locker room manager: Hematologic Medical Hx - nail feeder Hx of Blood Transfusion No 04/19/25 12:09 [...] confused, unrespo /Reproduction History /Reproductive History - locker room manager: /Reproductive Hx- locker room manager Hx Now No 04/23/25 07:30 Gestational Age [...] additional complaints, except as documented. 04/23/25 0754 <Electronically signed by Yovani hernandez MD> Date _ Yovani Walker MD Cosigner Signature: Date CC: ~ Signed [facility] Work Phone: Consult note Author Jesse Gore [facility] Note Date/Time April 23, 2025 9:35 am [facility] Medical Records Department [address] [place] [address] Anesthesia Postop Eval I 04/23/25845 MR#: [id number] Acct: [id number] Name: LILLIE HOLLAND Rep #:[id number] : 1975 49 From: Jesse Gore PCP: LINA Mckeon Status:REG SDC Y Race: C Location: [place] [address] Anesthesia: Postop Eval I Current Vital Signs [...] Jesse Gómez Signature: Date CC: ~ Signed [facility] Work Phone: Evaluation note* Diagnosis Onset Date Resolution Status COPD (chronic obstructive pulmonary disease) chronic Nicotine dependence, cigarettes, uncomplicated chronic [facility] Work Phone: Evaluation note* Diagnosis Onset Date Resolution Status COPD (chronic obstructive pulmonary disease) chronic Nicotine dependence, cigarettes, uncomplicated chronic Fibromyalgia acute Dyspnea chronic [facility] Work Phone: Evaluation note* Diagnosis Onset Date Resolution Status Dyspnea chronic Fibromyalgia chronic COPD (chronic obstructive pulmonary disease) chronic Dyspnea chronic Fibromyalgia chronic Nicotine dependence, cigarettes, uncomplicated chronic [facility] Work Phone: Evaluation note* Diagnosis Encounter for gynecological examination (general) (routine) without abnormal findings- Primary Hot flashes Symptomatic menopausal or female climacteric states Encounter for screening mammogram for malignant neoplasm of breast Other [facility] Unintended weight gain- Primary Abnormal weight gain OAB (overactive bladder) Hypertonicity of bladder Forgetfulness Other general symptoms Hot flashes Symptomatic menopausal or female climacteric states Screening cholesterol level Screening for lipoid disorders Screening for diabetes mellitus Screening for metabolic disorder Encounter for vitamin deficiency screening Screening for other and unspecified endocrine, nutritional, metabolic, and immunity disorders [facility] Menopausal symptoms- Primary Symptomatic menopausal or female climacteric states OAB (overactive bladder) Hypertonicity of bladder documented in this encounter [facility] Discharge instructionsAmbulatory Orders* Cardiology Location: [facility] Work Phone: Progress note Author Ashanti Mejía [facility] Note Date/Time August 06, 2025 10:59am [facility] [place] [facility] [address] [place] [address] OFFICE VISIT Date of Service: 08/06/25 MR#: [id number] Acct: [id number] Name: LILLIE HOLLAND Rep #: [id number] : 1975 Provider: PREETHI Mejía Age/Sex: 49/F Location: [facility] [place].[facility] Status: Signed Assessment and Plan Assessment and Plan (1) Obstructive sleep apnea: Status: Acute Comment: AHI 10.2 Plan: New. Unfortunately, despite the patient given significant effort she has not noticed any benefit to PAP therapy. For this reason I am sending her for a titration study. Once test results are available for review I will order the patient the appropriate recommended pressure support. Return to the office in 3months to evaluate her response to new recommended therapy. She has been encouraged to contact our office if she has any difficulty acclimating to new therapy. (2) Smoking greater than 20 pack years: Status: Chronic Comment: Quit in 2023 Plan: Continue to encourage complete smoking cessation. She remains appropriate for repeat LDCT in July 2026, ordered accordingly. (3) Obesity: Status: Chronic Qualifiers: Obesity type: due to excess calories [...] prognosis. Continue to encourage healthy weight loss. (4) Fibromyalgia: Status: Chronic Plan: Complicates exam, plan, care and prognosis. Currently being managed by rheumatology. (5) Asthma-COPD overlap syndrome: Status: Chronic Comment: FEV1 76% Plan: NIOX procedure performed in the office today returned with slightly elevated results. This indicates that the 100 mcg dose of Trelegy is not controlling the patient's symptoms. I am escalating therapy to 200 mcg dosing of Trelegy. Follow-up in the office in 3 months to evaluate response to therapy. She has been encouraged to contact the office with any new or worsening symptoms in the meantime. No indication for antibiotics or steroids today. (6) Diastolic dysfunction: Status: Chronic Comment: Stage I Plan: Established with cardiology. Orders: Orders NIOX Today R05 - Cough Polysomnography with PAP Today G47.33 - Obstructive sleep apnea (adult) (pediatric) Low Dose CT Lung Screening 1 Year F17.210 - Nicotine dependence, cigarettes, uncomplicated Medications: New wsemdvhqznb-xklkyzegr-hvmfnpph 200-62.5-25 mcg (Trelegy Ellipta) 1 inh inhalation DAILY 60 ea 6RF J44.89 - Other specified chronic obstructive pulmonary disease nystatin swish and swallow 5 cc three times per day for 10 days 5 mL mucous membrane TID 250 mL 1RF J44.89 - Other specified chronic obstructive pulmonary disease Discontinued oeurvnzrtlk-imtnrrmdj-fnaksnhp 100-62.5-25 mcg (Trelegy Ellipta) administer at approximately the same time(s) each day Discontinued Reason: Order Changed 1 inh inhalation QDAY 60 ea 3RF J44.9 - Chronic obstructive pulmonary disease, unspecified Plan Details Additional Comments: This note was generated with Syntaxin dictation software. It may contain incorrect words, spelling, and punctuation that were not noted in checking the note before signing. Follow Up: 3 Months HPI 3 M FU Chief Complaint: New PAP therapy HPI Comments Details: This patient presents to the office today for follow-up of her asthma/COPD overlap syndrome with obstructive sleep apnea. She is ambulatory and on room air. She has not recently been seen in the ED or urgent care for any respiratory illness. She has not required any antibiotics or prednisone for any breathing problems. She is compliant with Trelegy 100 mcg 1 puff daily. She did report rinsing [...] chest tightness, chest pain or palpitations. She does report feeling a sensation of chest heaviness. She has a cardiac CAT scan today. She has not had any fever, chills or body aches. She continues complete smoking cessation. If you recall, she has a greater than 09-wlun-bjkl smoking history but quit completely back in November of 2023. She reports she has given serious effort to be compliant with PAP therapy. She tries to wear it at least 5 hours every night. After 5 hours she takes it off because she is not resting well with it on. She is not feeling more rested with the use of the device. She denies any difficulty with dry mouth. She has not required naps. She has not noticed mask leaks. She has noticed more frequent headaches since using AutoPap therapy. Compliance report for the past 30 days shows 87% compliance with average use of 5 hours and 20 minutes per night. Current setting is AutoPap 5 to 15 cm of water with pressures typically being utilized at 10.2 to 13.1 cm of water. Residual AHI of 3.2 is events per hour. Leaks do not appear to be problematic. 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 Mechanical Required: No Accompanied by: Self Is patient in pain?: No Allergies No Known Allergies Allergy (Verified 08/06/25 10:23) Medications ?Medication ?Instructions ?Recorded ?Confirmed ?Type omeprazole 20 mg capsule,delayed 20 mg PO DAILY 08/06/25 History release inhalational spacing device (Space #1 ea 11/03/2307/10 History Chamber) multivitamin with minerals-folic 1 tab PO DAILY 08/06/25 History acid 0.4 mg tablet albuterol sulfate 90 mcg/actuation 2 puff inhalation Q 4H PRN 03/05/25 08/06/25 Rx aerosol inhaler shortness of breath or wheez ing #8.5 grams Marijuana Medical Card .Route 04/16/25 08/06/25 His tory cetirizine 10 mg tablet (24Hour 10 mg PO DAILY PRN all ergy symptoms 04/19/25 08/06/25 History Allergy) cholecalciferol (vitamin D3) 250 250 mcg PO QWEEK 01/3008/06/25 History mcg (10,000 unit) capsule vitamin B complex 1 tab PO QDAY 05/30/2508/06 History metoprolol tartrate 50 mg tablet 50 mg PO ONCE #1 TAB 06/29/25 08/06/25 Rx amitriptyline 10 mg tablet 10 mg PO QHS 08/06/2508/06 History fluticasone fur. 200 mcg-umeclid 1 inh inhalation SHAR Y #60 ea 08/06/25 08/06/25 Rx 62.5 mcg-vilant 25 mcg inhalat.powder (Trelegy Ellipta) nystatin 100,000 unit/mL oral 5 ml mucous membrane TID #250 mL 08/06/25 08/06/25 Rx suspension PFSH Medical History (Reviewed 08/06/25 @ 10:31 by Ashanti Mejía CYLINDER SANDER OPERATOR, CYLINDER SANDER OPERATOR-C) Wears glasses Post-menopausal Marijuana use Alcohol use [...] obstructive pulmonary disease) Vasculitis Cough Surgical History (Reviewed 08/06/25 @ 10:31 by Ashanti Mejía CYLINDER SANDER OPERATOR, CYLINDER SANDER OPERATOR-C) Hx of wisdom tooth extraction History of [...] frequency: does not exercise Review of Systems Resp Respiratory: Yes as per HPI Exam Const Constitutional: Positive conversant, cooperative, in no acute respiratory distress, well developed, well nourished and obese; Negative healthy appearing Head Head: Yes normocephalic, Yes atraumatic and No cyanosis of lips/distal nose Eyes Eye: Positive clear conjunctiva; Negative nystagmus Ears Ear: Positive hearing normal and external ears normal Nose Nose: Yes external nose normal Mouth Mouth: Positive oral mucosae normal Neck Neck: Positive normal visual inspection and trachea midline Chest Wall Chest: Positive symmetric chest movement; Negative increased A/P diameter Resp lung sounds: Positive diminished lung sounds, normal expiratory time and normal respiratory effort; Negative wheezes, rhonchi or rales Cardio Cardiac: Positive regular rate, regular rhythm, S1 normal and S2 normal; Negative murmur, rub or gallop GI GI: Positive normal to inspection and obese Genitourinary: Positive deferred Musc Musculoskeletal: Positive steady gait Skin Pulmonary Skin Exam: Positive intact; Negative lesion, rash, ulcers or dermal atrophy Extremities Extremities: No clubbing, No cyanosis and No edema Neuro Neurologic: Yes no focal neuro deficits, Yes conversant, Yes cooperative, Yes normal cognition, Yes normal coordination, Yes normal concentration and Yes understands questions Psych Appearance: Positive grossly normal and eye contact Mental Status: Positive mental status grossly normal Mood: Positive congruent mood Affect: Positive anxious affect Office Procedures Niox Air Inflam Monitor NIOX Result NIOX: 29 Coding Level of Care Code Off vis,est,level 5 Diagnoses Obstructive sleep apnea G47.33 Smoking greater than 20 pack years F17.210 Class 1 obesity due to excess calories with body mass index (BMI) of 32.0 to 32.9 in adult, unspecified whether serious comorbidity present E66.811; E66.09; Z68.32 Obesity type: due to excess calories Obesity classification: adult class 1 (BMI 30 - 34.9) Serious obesity comorbidity presence: unspecified whether serious comorbidity present Body mass index: BMI 32.0-32.9 Fibromyalgia M79.7 Asthma-COPD overlap syndrome J44.89 Diastolic dysfunction I51.89 08/06/25 1641 <Electronically signed by Ashanti hein NP CYLINDER SANDER OPERATOR-C> Date _ Ashanti Mejía NP CYLINDER SANDER OPERATOR-C Cosigner Signature: Date (if applicable) CC: LINA Mckeon ~ [facility] Work Phone: Reason for referral (narrative)No reason for referral information availableWMartin [facility] Work Phone: Chief Complaint and [...] Chest pain May 30, 2025 11:0 6am Chief Complaint Admit Date 4 M FU March 05, 2025 12: 53pm Other forms of dyspnea March 23, 2025 1: 50pm R06.09 - Other forms of dyspnea March 12:17pm PENNY, HYPERSOMNIA April 01, 2025 11:00 am R06.09 - Other forms of dyspnea March 12:28pm 3 M FU April 16, 2025 11:13 am SOB (MEJÍA) May 30, 2025 11:0 6am Plantar fascial fibromatosis June 7:06am Chief Complaint Admit Date 3 M FU April 16, 2025 11:13 am SOB (MEJÍA) May 30, 2025 11:0 6am Plantar fascial fibromatosis June 7:06am 3 M FU August 06, 2025 10:13am R06.09 Other forms of dyspnea August 06, 2025 12:55pm R06.09 Other forms of dyspnea August 06, 2025 6:53pm Reason for Visit Admit Date Obstructive sleep apnea April 16, 2025 1 1:13am Diastolic dysfunction April 16, 2025 11: 13am Dyspnea April 16, 2025 11:13 am Fibromyalgia April 16, 2025 11:13 am Obesity April 16, 2025 11:13 am Smoking greater than 20 pack years April 16, 2025 11:13am Hx of colonic polyp April 23, 2025 6:35 am Chest pain May 30, 2025 11:0 6am Obstructive sleep apnea August 06, 2025 10:13am Asthma-COPD overlap syndrome July 102024 10:13am Diastolic dysfunction August 06 10:13am Fibromyalgia August 06, 2025 10:13am Obesity August 06, 2025 10:13am Smoking greater than 20 pack years [facility] 2024 10:13am Chief Complaint Admit Date 3 M FU April 16, 2025 11:13 am SOB (MEJÍA) May 30, 2025 11:0 6am Plantar fascial fibromatosis June 7:06am 3 M FU August 06, 2025 10:13am R06.09 Other forms of dyspnea August 06, 2025 12:55pm R06.09 Other forms of dyspnea August 06, 2025 6:53pm 2 M FU August 13, 2025 10 :54am Advance Directives No Advanced Directives Records Found Advance Directive Response Recorded Date/ Time Living Will No January 10, 2019 8:12am Power of Co Founder And Chairman No January 10 9 8:12am Advance Directive Response Recorded Date/ Time Living Will No January 10, 2019 9:12am Power of Co Founder And Chairman No January 10 9 9:12am Advance Directive Response Recorded Date/ Time Living Will No January 10, 2019 9:12am Do you have a Healthcare Power of Co Founder And Chairman? No January 10, 2019 9:12am Advance Directive Response Recorded Date/ Time Living Will No January 10, 2019 9:12am Do you have a Healthcare Power of Co Founder And Chairman? No January 10, 2019 9:12am Do you have a Healthcare Power of Co Founder And Chairman? No April 19, 2025 12:09pm Advance Directive Response Recorded Date/ Time Do you have a Healthcare Power of Co Founder And Chairman? No April 19, 2025 12:09pm Family History [...] Referring Provider Active Dr. Dangelo Muller , DO Attending Provider Active Team Status: Active Member Role Status Dates LINA Mckeon Primary Care Provider Active Dr. Dangelo Muller , DO Attending Provider, Referring Provider, Other Provider Active Team Status: Inactive Member Role Status Dates LINA Mckeon Primary Care Provider Active Dr. Dangelo Muller , DO Attending Provider, Referring Pro vider Active Team Status: Inactive Member Role Status Dates LINA Mckeon Primary Care Provider, Referring Pro vider Active Ashanti Mejía CYLINDER SANDER OPERATOR, CYLINDER SANDER OPERATOR-C Attending Provider Active Team Status: Active Member Role Status Dates LINA Mckeon Primary Care Provider Active Dr. Fahad Beaver MD Attending Provider Active Team Status: Inactive Member Role Status Dates LINA Mckeon Primary Care Provider Active Ashanti Mejía CYLINDER SANDER OPERATOR, CYLINDER SANDER OPERATOR-C Attending Provider, Referrin g Provider Active Block Machine Operator Relationship Specialty Start Date End Date Carlin Adam [address] [place] [address] Referring Family Medicine 01/31/19 Block Machine Operator Relationship Specialty Start Date End Date Carlin Adam [address] [place] [address] Referring Family Medicine 01/31/19 Team Status: Active Member Role Status Dates LINA Mckeon Primary Care Provider Active Team Status: Inactive Member Role Status Dates LINA Mckeon Primary Care Provider Active S tart: December 11, 2024 End: December 11, 2024 Ashanti Mejía CYLINDER SANDER OPERATOR, CYLINDER SANDER OPERATOR-C Attending Provider Active Start: December 11, 2024 End: December 11, 2024 Ashanti Mejía CYLINDER SANDER OPERATOR, CYLINDER SANDER OPERATOR-C Referring Provider Active Start: December 11, 2024 End: December 11, 2024 Team Status: Inactive Member Role Status Dates LINA Mckeon Primary Care Provider Active S tart: December 18, 2024 End: December 18, 2024 Ashanti Mejía CYLINDER SANDER OPERATOR, CYLINDER SANDER OPERATOR-C Attending Provider Active Start: December 18, 2024 End: December 18, 2024 Ashanti Mejía CYLINDER SANDER OPERATOR, CYLINDER SANDER OPERATOR-C Referring Provider Active Start: December 18, 2024 End: December 18, 2024 Team Status: Inactive Member Role Status Dates LINA Mckeon Primary Care Provider Active S tart: March 05, 2025 End: March 05, 2025 LINA Mckeon Referring Provider Active Star t: March 05, 2025 End: March 05, 2025 Ashanti Mejía CYLINDER SANDER OPERATOR, CYLINDER SANDER OPERATOR-C Attending Provider Active Start: March 05, 2025 End: March 05, 2025 Team Status: Inactive Member Role Status Dates LINA Mckeon Primary Care Provider Active S tart: March 23, 2025 End: March 23, 2025 Ashanti Mejía CYLINDER SANDER OPERATOR, CYLINDER SANDER OPERATOR-C Attending Provider Active Start: March 23, 2025 End: March 23, 2025 Ashanti Mejía CYLINDER SANDER OPERATOR, CYLINDER SANDER OPERATOR-C Referring Provider Active Start: March 23, [...] 2025 End: March 27, 2025 Ashanti Mejía CYLINDER SANDER OPERATOR, CYLINDER SANDER OPERATOR-C Attending Provider Active Start: March 27, 2025 End: March 27, 2025 Ashanti Mejía CYLINDER SANDER OPERATOR, CYLINDER SANDER OPERATOR-C Referring Provider Active Start: March 27, 2025 End: March 27, 2025 Team Status: Inactive Member Role Status Dates LINA Mckeon Primary Care Provider Active S tart: April 01, 2025 End: April 01, 2025 Ashanti Mejía CYLINDER SANDER OPERATOR, CYLINDER SANDER OPERATOR-C Attending Provider Active Start: April 01, 2025 End: April 01, 2025 Ashanti Mejía CYLINDER SANDER OPERATOR, CYLINDER SANDER OPERATOR-C Referring Provider Active Start: April 01, 2025 End: April 01, 2025 Team Status: Active Member Role Status Dates LINA Mckeon Primary Care Provider Active S tart: April 03, 2025 Ashanti Mejía CYLINDER SANDER OPERATOR, CYLINDER SANDER OPERATOR-C Referring Provider Active Start: April 03, 2025 Ashanti Mejía CYLINDER SANDER OPERATOR, CYLINDER SANDER OPERATOR-C Other Provider Active Start: April 03, 2025 Dr. Dangelo Muller DO Attending Provider Active S tart: April 03, 2025 Team Status: Inactive Member Role Status Dates LINA Mkceon Primary Care Provider Active S tart: April 16, 2025 End: April 16, 2025 LINA Mckeon Referring Provider Active Star t: April 16, 2025 End: April 16, 2025 Ashanti Mejía CYLINDER SANDER OPERATOR, CYLINDER SANDER OPERATOR-C Attending Provider Active Start: April 16, 2025 End: April 16, 2025 Team Status: Inactive Member Role Status Dates LINA Mckeon Primary Care Provider Active S tart: April 23, 2025 End: April 23, 2025 LINA Mckeon Referring Provider Active Star t: April 23, 2025 End: April 23, 2025 Dr. Maddy Amador MD Attending Provider Active Start: April 23, 2025 End: April 23, 2025 Team Status: Active Member Role Status Dates LINA Mckeon Primary Care Provider Active S tart: April 23, 2025 LINA Mckeon Referring Provider Active Star t: April 23, [...] 2025 End: March 05, 2025 Ashanti Mejía CYLINDER SANDER OPERATOR, CYLINDER SANDER OPERATOR-C Attending Provider Active Start: March 05, 2025 End: March 05, 2025 Team Status: Inactive Member Role/Relationship Status Dates LINA Mckeon Primary Care Provider Active S tart: March 23, 2025 End: March 23, 2025 Ashanti Mejía CYLINDER SANDER OPERATOR, CYLINDER SANDER OPERATOR-C Attending Provider Active Start: March 23, 2025 End: March 23, 2025 Ashanti Mejía CYLINDER SANDER OPERATOR, CYLINDER SANDER OPERATOR-C Referring Provider Active Start: March 23, [...] 2025 End: March 27, 2025 Ashanti Mejía CYLINDER SANDER OPERATOR, CYLINDER SANDER OPERATOR-C Attending Provider Active Start: March 27, 2025 End: March 27, 2025 Ashanti Mejía CYLINDER SANDER OPERATOR, CYLINDER SANDER OPERATOR-C Referring Provider Active Start: March 27, 2025 End: March 27, 2025 Team Status: Inactive Member Role/Relationship Status Dates Leonora Saldivar PA Primary Care Provider Active S tart: April 01, 2025 End: April 01, 2025 Ashanti Mejía CYLINDER SANDER OPERATOR, CYLINDER SANDER OPERATOR-C Attending Provider Active Start: April 01, 2025 End: April 01, 2025 Ashanti Mejía CYLINDER SANDER OPERATOR, CYLINDER SANDER OPERATOR-C Referring Provider Active Start: April 01, 2025 End: April 01, 2025 Team Status: Active Member Role/Relationship Status Dates LINA Mckeon Primary Care Provider Active S tart: April 03, 2025 Ashanti Mejía CYLINDER SANDER OPERATOR, CYLINDER SANDER OPERATOR-C Referring Provider Active Start: April 03, 2025 Ashanti Mejía CYLINDER SANDER OPERATOR, CYLINDER SANDER OPERATOR-C Other Provider Active Start: April 03, 2025 Dr. Dangelo Muller DO Attending Provider Active S tart: April 03, 2025 Team Status: Inactive Member Role/Relationship Status Dates Leonoraasha Saldivar PA Primary Care Provider Active S tart: April 16, 2025 End: April 16, 2025 Leonora Saldivar PA Referring Provider Active Star t: April 16, 2025 End: April 16, 2025 Ashanti Mejía CYLINDER SANDER OPERATOR, CYLINDER SANDER OPERATOR-C Attending Provider Active Start: April 16, 2025 End: April 16, 2025 Team Status: Inactive Member Role/Relationship Status Dates Leonora Saldivar PA Primary Care Provider Active S tart: April 23, 2025 End: April 23, 2025 Leonoraasha Saldivar , PA Referring Provider Active Star t: April 23, 2025 End: April 23, 2025 Dr. Maddy Amador MD Attending Provider Active Start: April 23, 2025 End: April 23, 2025 Team Status: Active Member Role/Relationship Status Dates Leonoraasha Saldivar PA [...] Mckeon Primary Care Provider Active S tart: May 08, 2025 Dr. Emerita Styles MD Attending Provider Active Start: May 08, 2025 Team Status: Inactive Member Role/Relationship Status Dates Leonora Saldivar , PA Primary Care Provider Active S tart: May 30, 2025 End: May 30, 2025 Leonora Saldivar PA Referring Provider Active Star t: May 30, 2025 End: May 30, 2025 Dr. Simon Del Rosario MD Attending Provider Active S tart: May 30, 2025 End: May 30, 2025 Team Status: Inactive Member Role/Relationship Status Dates LINA Mckeon Primary Care Provider Active S tart: May 30, 2025 End: May 30, 2025 Dr. Simon Del Rosario MD Attending Provider Active S tart: May 30, 2025 End: May 30, 2025 Dr. Simon Del Rosario MD Referring Provider Active S tart: May 30, 2025 End: May 30, 2025 Team Status: Inactive Member Role/Relationship Status Dates LINA Mckeon Primary Care Provider Active S tart: June 18, 2025 End: June 18, 2025 Dr. Zack Whalen DPM Attending Provider Active Start: June 18, 2025 End: June 18, 2025 Dr. Zack Whalen DPM Referring Provider Active Start: June 18, 2025 End: June 18, 2025 Team Status: Active Member Role/Relationship Status Dates LINA Mckeon Primary care physician Active Team Status: Inactive Member Role/Relationship Status Dates LINA Mckeon Primary care physician Active Start: April 16, 2025 End: April 16, 2025 Leonora Saldivar PA Referring Provider Active Star t: April 16, 2025 End: April 16, 2025 Ashanti Mejía CYLINDER SANDER OPERATOR, CYLINDER SANDER OPERATOR-C Attending physician Active Start: April 16, 2025 End: April 16, 2025 Team Status: Inactive Member Role/Relationship Status Dates eLonora Saldivar PA Primary care physician Active Start: April 23, 2025 End: April 23, 2025 Leonora Saldivar PA Referring Provider Active Star t: April 23, 2025 End: April 23, 2025 Dr. Maddy Amador MD Attending physician Active Start: April 23, 2025 End: April 23, 2025 Team Status: Active Member Role/Relationship Status Dates LINA Mckeon Primary care physician Active Start: April 23, 2025 Leonora Saldiavr PA Referring Provider Active Star t: April 23, 2025 Dr. Maddy Amador MD Attending physician Active Start: April 23, 2025 Dr. Maddy Amador MD Nurse Practitioner Active Start: April 23, 2025 Team Status: Inactive Member Role/Relationship Status Dates Leonora Saldivar PA Primary care physician Active Start: May 08, 2025 Dr. Emerita Styles MD Attending physician Active Start: May 08, 2025 Team Status: Inactive Member Role/Relationship Status Dates LINA Mckeon Primary care physician Active Start: May 30, 2025 End: May 30, 2025 Leonora Saldivar PA Referring Provider Active Star t: May 30, 2025 End: May 30, 2025 Dr. Simon Del Rosario MD Attending physician Active Start: May 30, 2025 End: May 30, 2025 Team Status: Inactive Member Role/Relationship Status Dates LINA Mckeon Primary care physician Active Start: May 30, 2025 End: May 30, 2025 Dr. Simon Del Rosario MD Attending physician Active Start: May 30, 2025 End: May 30, 2025 Dr. Simon Del Rosario MD Referring Provider Active S tart: May 30, 2025 End: May 30, 2025 Team Status: Inactive Member Role/Relationship Status Dates ILNA Mckeon Primary care physician Active Start: June 18, 2025 End: June 18, 2025 Dr. Zack Whalen DPM Attending physician Active Start: June 18, 2025 End: June 18, 2025 Dr. Zack Whalen DPM Referring Provider Active Start: June 18, 2025 End: June 18, 2025 Team Status: Inactive Member Role/Relationship Status Dates Leonora Saldivar PA Primary care physician Active Start: August 06, 2025 End: August 06, 2025 Leonora Saldivar PA Referring Provider Active Star t: August 06, 2025 End: August 06, 2025 Ashanti Mejía NP, CYLINDER SANDER OPERATOR-C Attending physician Active Start: August 06, 2025 End: August 06, 2025 Team Status: Active Member Role/Relationship Status Dates LINA Mckeon Primary care physician Active Start: August 06, 2025 LINA Faulkner Attending physician Active S tart: August 06, 2025 LINA Faulkner Referring Provider Active St art: August 06, 2025 Team Status: Active Member Role/Relationship Status Dates LINA Mckeon Primary care physician Active Start: August 06, 2025 LINA Faulkner Referring Provider Active St art: August 06, 2025 LINA Faulkner Nurse Practitioner Active St art: August 06, 2025 Dr. Simon Del Rosario MD Attending physician Active Start: August 06, 2025 Team Status: Inactive Member Role/Relationship Status Dates LINA Mckeon Primary care physician Active Start: August 06, 2025 End: August 06, 2025 LINA Faulkner Attending physician Active S tart: August 06, 2025 End: August 06, 2025 LINA Faulkner Referring Provider Active St art: August 06, 2025 End: August 06, 2025 Team Status: Inactive Member Role/Relationship Status Dates LINA Mckeon Primary care physician Active Start: August 13, 2025 End: August 13, 2025 LINA Mckeon Referring Provider Active Star t: August 13, 2025 End: August 13, 2025 LINA Faulkner Attending physician Active S tart: August 13, 2025 End: August 13, 2025 Goals (unrecognized section and content) Goals [...] or prosecute any alcohol or drug abuse patient.[facility] ClinicIn the event this information is protected by the Federal Confidentiality of Alcohol and Drug Abuse Patient Records regulations: The Federal rules restrict any use of the information to criminally investigate or prosecute any alcohol or drug abuse patient.[facility] the event this information is protected by the Federal Confidentiality of Alcohol and Drug Abuse Patient Records regulations: The Federal rules restrict any use of the information to criminally investigate or prosecute any alcohol or drug abuse patient.[facility] the event this information is protected by the Federal Confidentiality of Alcohol and Drug Abuse Patient Records regulations: The Federal rules restrict any use of the information to criminally investigate or prosecute any alcohol or drug abuse patient.[facility] Reason for Visit (unrecogniz ed section and content) Reason Comments Yearly Exam Reason Onset Date Comments Follow Up Weight Management 05/29/2024 Reason Comments Results Reason Comments Follow Up INFORMATION SOURCE (unrecogn ized section and content) DATE CREATED AUTHOR 04/29/2024 [employer] DATE CREATED AUTHOR AUTHOR'S ORGANIZ ATION 07/25/[address] [facility] DATE CREATED AUTHOR AUTHOR'S ORGANIZ ATION 07/04/2025 [facility] DATE CREATED AUTHOR AUTHOR'S ORGANIZ ATION 09/09/2025 [facility] DATE CREATED AUTHOR AUTHOR'S ORGANIZ ATION 09/13/2025 [facility] FOR RECORDS PERTAINING TO PATIENTS WHO [...] BE BASED ON THE PRIMARY CLINICAL RECORDS. [employer] [facility]. provides no warranty or guarantee of the accuracy or completeness of information in this document.
[2025-09-14] MEDS: Lactated Ringers 1,000 ML 15 ML IV (06:19)
--- NOTE | 2025-09-14 06:30 | RAD_ITS ---
PROCEDURE: Intraoperative fluoroscopic services. 09/14/2025 REASON FOR EXAM: PLANTAR FASCIOTOMY OF FOOT WITH RESECTION INFRACALCANEAL SPUR TECHNIQUE: Procedure Code: RADFO2 Modality: DX Procedure: FOOT 2 VIEWS. Fluoroscopy: 1 minute and 56 seconds. Radiation dose: 0.917 mGy. Laterality: Right foot COMPARISON: None FINDINGS: Intraoperative fluoroscopic services provided for plantar fasciotomy and resection of the plantar calcaneal spur. RAD/Foot 2 Views IMPRESSION: Intraoperative fluoroscopic services provided for plantar fasciotomy and resect ion of the calcaneal spur. Reading Location: [id number]
--- NOTE | 2025-09-14 07:09 | PRE.ANES_ITS ---
ASA Classification* ASA Classification ASA Classification: 2 Assessment & Plan Anesthesia* Anesthesia Assessment Anesthesia Assessment: Discussed sedation and/or anesthesia options, risks, benefits, and alternatives with patient/parents/legal guardian/POA. Questions invited. The patient/parents/legal guardian/POA seems to understand and agrees to proceed with anesthesia plan. Reviewed the physical assessment, medical history, allergy history and patient home medications list prior to surgery/procedure/anesthetic and documented any changes. Performed airway and anesthesia risk assessments. Anesthesia Type Anesthesia Type: MAC History Source History Obtained from:: Patient and Chart Anesthesia Focused Assessment* Temperature: 96.9 F Pulse Rate: 82 Blood Pressure: 111/78 Respiratory Rate: 16 Pulse Ox: 97 Oxygen Delivery Method: Room Air Airway Assessment Mouth opens: 2 cm Mallampati Score: IV Teeth Condition: Missing (Patient has a couple missing teeth. The rest are tight.) Neck Range of motion (ROM): Full ROM Labs Anesthesia Preop lab: CBC WBC, (4.4-11.0) 6.8 K/mm3 05/30/25, 11:50 RBC, (4.2-5.4) 4.31 M/mm3 05/30/25, 11:50 Hgb, (12.0-15.0) 12.4 g/dL 05/30/25, 11:50 Hct, (37-47) 38.5 % 05/30/25, 11:50 Plt Count, (150-450) 262 K/mm3 05/30/25, 11:50 CHEMISTRY Potassium, (3.3-5.1) 3.7 mmol/L 05/30/25, 11:50 Sodium, (133-145) 141 mmol/L 05/30/25, 11:50 BUN, (4-19) 11 mg/dL 05/30/25, 11:50 Creatinine, (0.70-1.20) 0.61 mg/dL L 05/30/25, 11:50 Glucose, (70-99) 89 mg/dL 05/30/25, 11:50 COAG PT, (11.7-14.9) 12.7 SECONDS 04/21/17, 11:48 Pre-Assessment Diagnosis/Proposed Procedure Planned Operative Procedure(s): (R) Plantar Fasciotomy of the right foot with resection of an infracalcaneal spur. 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 When Was Last Pacemaker Check QUESTION #4 FULL TEXT: You/Your Family Experience fever (hyperthermia) with Anesthesia Last Oral Intake Last Oral intake: Last Oral Intake NPO since 23:00 09/14/25 06:16 Meds taken in AM with sips of water? 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 - agricultural science professor: PONV - agricultural science professor Female Yes 09/07/25 10:32 HX of Motion Sickness Yes 09/07/25 10:32 HX of N/V After Surgery No 09/07/25 10:32 Non-Smoker Yes 09/07/25 10:32 Duration of Surgery greater Yes 09/07/25 10:32 than 60 minutes Number of Risk Factors 4 09/07/25 10:32 PONV Score Severe Risk 09/07/25 10:32 Height & Weight Height & Weight: Anesthesia: Height & Weight Height 5 ft 3 in 09/14/25 06:16 Weight: 85.9 kg 09/14/25 06:16 Body Mass Index (BMI) 33.5 09/14/25 06:16 Respiratory Assessment Respiratory Assessment - agricultural science professor: Respiratory Tract Infection Hx - agricultural science professor Hx Respiratory Tract Infection No 09/07/25 10:32 STOP Sleep Apnea STOP Sleep Apnea - agricultural science professor: STOP Sleep Apnea - agricultural science professor Hx Hypertension No 09/07/25 10:32 Hx Sleep Apnea No 09/07/25 10:32 CPAP BIPAP Do you snore loudly (louder No 09/07/25 10:32 than talking or can be heard Do you often feel tired/ No 09/07/25 10:32 fatigued/ sleepy during daytime? Has anyone observed you stop No 09/07/25 10:32 breathing during sleep? STOP Results Negative 09/07/25 10:32 QUESTION #5 FULL TEXT : Do you snore loudly (louder than talking or can be heard through closed doors)? 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 Specify any problems Hx of Preganancy in last 3 N/A 09/07/25 10:32 Months Nurse Filling Out Transfusion NBUCHER 09/07/25 10:32 & Questions: Date: 09/07/25 09/07/25 10:32 Time: 10:34 09/07/25 10:32 Patient unable to answer at this time (ie. confused, unrespo /Reproduction History /Reproductive History - agricultural science professor: /Reproductive Hx- agricultural science professor Hx Now No 09/07/25 10:32 Gestational Age (in weeks): EDC: Hx Hx Para Hx Section SAB No 09/07/25 10:32 Does the father of the baby or his family experience fever w Father of the baby Malignant Hypertension history comment Active Medications Active Medications: Current Medications Generic Name Dose Route Start Last Admin Trade Name Freq PRN Reason Stop Dose Admin Cefazolin Sodium 2 gm/ Sodium 110 mls @ 200 mls/hr 09/14/25 07:30 Chloride IV 09/14/25 08:02 INTRAOP ONE Lactated Ringer's 1,000 mls @ 15 mls/hr 09/14/25 06:00 09/14/25 06:19 IV 15 mls/hr .Q48H RANJANA Administration PFSH Medical History Wears glasses Post-menopausal Marijuana use Alcohol use Gastric reflux Sleep apnea Former smoker Smoker Shortness of breath on exertion Hoarseness Chronic cough History of pain when walking History of echocardiogram Cardiology follow-up encounter Chest pain Acid reflux Abdominal pain Fatigue Anxiety Depression Heart murmur Abnormal ultrasound of breast Abnormal mammogram of left breast Sweets syndrome Tobacco dependence Moderate persistent asthma Bronchitis COPD (chronic obstructive pulmonary disease) Vasculitis Cough Home Medications Medication Instructions Recorded Last Taken Type omeprazole 20 mg capsule,delayed 20 mg PO DAILY Unknown History release inhalational spacing device (Space #1 ea 11/03/23 Unkn own History Chamber) multivitamin with minerals-folic 1 tab PO DAILY Unknown History acid 0.4 mg tablet albuterol sulfate 90 mcg/actuation 2 puff inhalation Q 4H PRN 03/05/25 Unknown Rx aerosol inhaler shortness of breath or wheez ing #8.5 grams Marijuana Medical Card .Route 04/16/25 Unknown Hist ory cetirizine 10 mg tablet (24Hour 10 mg PO DAILY PRN all ergy symptoms 04/19/25 Unknown History Allergy) cholecalciferol (vitamin D3) 250 250 mcg PO QWEEK 01/30 Unknown History mcg (10,000 unit) capsule vitamin B complex 1 tab PO QDAY 05/30/25 Unkno wn History amitriptyline 10 mg tablet 10 mg PO QHS 08/06/25 Unkno wn History fluticasone fur. 200 mcg-umeclid 1 inh inhalation SHAR Y #60 ea 08/06/25 Unknown Rx 62.5 mcg-vilant 25 mcg inhalat.powder (Trelegy Ellipta) nystatin 100,000 unit/mL oral 5 ml mucous membrane TID PRN COPD 09/07/25 Unknown History suspension Allergy/AdvReac Type Severity Reaction Status Date / Time No Known Allergies Allergy Verified 09/14/25 06:15 Family History Mother Arthritis Diabetes Thyroid disorder Aunt Breast cancer Grandmother Hypertension Diabetes Grandmother CVA (cerebral vascular accident) Surgical History Hx of wisdom tooth extraction History of esophagogastroduodenoscopy (EGD) Hx of colonoscopy delivery delivered H/O: hysterectomy Social History Smoking Status: Former smoker quit date: 11/30/23 Tobacco: How many years used: 31 Electronic Cigarette Use: not used second hand exposure: Yes alcohol intake: current alcohol intake frequency: a few times a month substance use type: does not use caffeine: Yes frequency: does not exercise Review of Systems (Anesthesia) ROS Narrative System reviewed and no additional complaints, except as documented. Physical Exam Resp clear to auscultation bilaterally
[2025-09-14 07:23] LABS: Anion Gap 11 (5-15); BUN 17 mg/dL (4-19); BUN/Creat Ratio 24.5 RATIO (10-20); Calcium,Total 9.3 mg/dL (7.6-11.0); Carbon Dioxide 23.5 mmol/L (21.0-32.0); Chloride 105 mmol/L (98-108); Estimated Creatinine Clearance 104.35 ml/min (50-250); Glucose 114 mg/dL (70-99); Potassium 4.1 mmol/L (3.3-5.1)
--- NOTE | 2025-09-14 07:30 | BON_PTH ---
PATIENT: AYLEEN ROMERO LOC: [facility] U#:[id number] AGE/SX: 49/F ROOM: RE09/14/[address]: Dr. Zack Whalen DPM : 1975 BED: DIS: 09/14/2025 SPEC #: [id number] RECD: 09/14/25 09:33 STATUS: AMRIT RELeonard #: [id number] DANNA: 09/14/25 07:[address]: Zack Whalen DEPT: SURGICAL PATHOLOGY RECD BY: Andres Miller ENTERED: 09/14/25 10:51 SP TYPE: Bone OTHR DR: LINA Mckeon Tissues: Foot, NOS Procedures: Decalcification bone/plaque Surgery Specimen Level III HEADER OPERATION: Plantar fasciotomy of right foot with resection PRE-OP DIAGNOSIS: Plantar fasciitis, heel spur TISSUE SUBMITTED: A- Plantar facial heel spur MICROSCOPIC DIAGNOSIS A. Plantar right foot, "heel spur", resection: - Fibroadipose tissue, skeletal muscle, cartilage, and scant trabecular bone with reactive/degenerative changes. MICROSCOPIC DESCRIPTION Slides are reviewed. GROSS DESCRIPTION A. Received in formalin labeled with the patient's name and date of . Designated as "plantar fascial heel spur" is a 1.8 x 1.2 x 0.5 cm portion of evans-pink to red soft tissue with attached and detached bone fragments. Entirely submitted in 1 cassette, following brief decalcification. MT 09/14/2025 CPT:51423,06844
[2025-09-14] MEDS: Lactated Ringers 1,000 ML 1000 ML IV (07:34)
[2025-09-14] MEDS: Cefazolin 1 GM/5 ML Vial 2 GM IV (07:34)
[2025-09-14] MEDS: Midazolam 2 MG/2 ML Syringe IV (07:34)
[2025-09-14] MEDS: Ketorolac 30 MG/ML Syringe IV (08:24)
[2025-09-14] MEDS: fentaNYL 100 MCG/2 ML Ampul 200 MCG IV (08:25)
--- NOTE | 2025-09-14 08:41 | PCM.POST.ANE ---
Anesthesia: Postop Eval I Current Vital Signs Temperature: 97.9 F Pulse Rate: 80 Blood Pressure: 91/53 Respiratory Rate: 16 Pulse Ox: 95 Assessment Airway patent: Yes Spontaneous unlabored respirations: Yes nausea: No Vomiting: No Anesthesia Complication: No Fluid Hydration Crystalloid volume administer (ml): 1,000 Total IV fluid infused: 1,000 Progress Note Anesthesia document: Postop Eval 1 completed: Yes
--- NOTE | 2025-09-14 08:41 | PCM.DC ---
Discharge Instructions DC O2, CPAP, BIPAP needs Home O2 Discharge instructions: No Dressing / Incision Discharge Activity: May Not Drive Weight Bearing Status: No weight bearing (No weightbearing right foot) Keep extremity elevated above heart level: Operative Extremity (Keep right foot elevated with pillows ) Dressing / Incision Call your doctor if your incision/area has: Continuous Slow Oozing, Sudden Increased Bleeding and Increased Pain/ Swelling Call your doctor if you observe: Fever of 101 or Higher, Shortness of breath, Chest pain, Increased palpitations (irregular heartbeat), Calf discomfort and Uncontrolled pain Change Dressing in: do not change dressing Remove Dressing in: do not remove dressing Cleanse incision/area with: Keep Dressing Clean & Dry Follow Up Care Please Follow Up With: Zack Whalen DPM When: within 1 week at office ([facility]), sooner if needed. Call Dr. Whalen over weekend if needed at [phone] - [facility], or [phone] - physician registry Test Results: Test results from this visit will be discussed in further detail at your follow-up appointment, if applicable. Discharge Plan Admission Attending Provider: Zack Whalen Primary Care Provider: Rachele Khan Instructions Print Language: Armenian Discharge Orders/Prescriptions Prescriptions: New hydrocodone-acetaminophen 5-325 mg tablet 1 - 2 tab PO Q6H PRN (Reason: pain) 3 Days Qty: 24 0RF ibuprofen 400 mg tablet 400 mg PO Q6H Qty: 30 0RF Continued omeprazole 20 mg capsule,delayed release(DR/EC) 20 mg PO DAILY Patient Comments: TAKE 1 CAPSULE BY MOUTH ONCE DAILY (DME) Space Chamber Spacer See Rx Instructions .ROUTE .MEDSUPPLY Qty: 1 Patient Comments: USE DIRECTED WITH INHALER Rx Instructions: As directed multivit with min-folic acid 0.4 mg tablet 1 tab PO DAILY albuterol sulfate 90 mcg/actuation HFA aerosol inhaler 2 puff inhalation Q4H PRN (Reason: shortness of breath or wheezing) Qty: 8.5 6RF Rx Instructions: administer with spacer Marijuana Medical Card .Route Rx Instructions: As ordered cholecalciferol (vitamin D3) 250 mcg (10,000 unit) capsule 250 mcg PO QWEEK vitamin B complex Tablet 1 tab PO QDAY amitriptyline 10 mg tablet 10 mg PO QHS Trelegy Ellipta 200-62.5-25 mcg blister with device 1 inh inhalation DAILY Qty: 60 6RF cetirizine [24Hour Allergy] 10 mg tablet 10 mg PO DAILY PRN (Reason: allergy symptoms) nystatin 100,000 unit/mL suspension 5 ml mucous membrane TID PRN (Reason: COPD) Rx Instructions: swish and swallow 5 cc three times per day for 10 days Referrals / Follow Up: Rachele Khan PA [Primary Care Provider, Family Practice] Disposition Disposition (needs filled in before D/C Order can be placed): Home, Self Care
--- NOTE | 2025-09-14 08:44 | PCM.OPRPT ---
Operative Report (Standard) Operative Information Date of Procedure: 09/14/25 Pre-Operative Diagnosis: Plantar fasciitis, right Infracalcaneal spur, right Post-Operative Diagnosis: Same Surgery/Procedure Performed: Plantar fasciotomy, right Resection of infracalcaneal spur, right shell trim tool setter: Yes Six Color Press Operator: Dr. Humaira Jade Tasks completed by hair or beauty salon assistant: Closing Type of Anesthesia: Local MAC RN Documented Start/Stop Times: Operation Date: 09/14/25 07:30 Case Time Into Pre-Op 09/14/25 05:59 Out of Pre-Op 09/14/25 07:31 Anesthesia Start 09/14/25 07:34 Into Room 09/14/25 07:34 Procedure Start 09/14/25 07:54 Procedure End 09/14/25 08:32 Anesthesia End 09/14/25 08:36 Out of Room 09/14/25 08:36 Into Recovery 09/14/25 08:38 Out of Recovery 09/14/25 09:12 Into Phase II Recovery 09/14/25 09:13 Out of Phase II 09/14/25 10:26 Procedure Start Time: 07:54 Procedure Stop Time: 08:32 Select all DRAINS/GRAFTS/IMPLANTS that apply: None Estimated Blood Loss: 1mL Specimen collected: Yes Description of specimen(s) removed: Plantar fascia, infracalcaneal spur - right Description of surgery: Indications: This is a 49 year-old female who has chronic right foot pain due to plantar fascia as well as infracalcaneal spur. Xrays and MRI have been obtained pre operatively and reviewed. She continues to have significant limiting pain despite extensive nonsurgical treatment which has included but not limited to rest, stretching therapy, corticosteroid injection, and immobilization. She would like to proceed with surgical intervention with procedure - plantar fasciotomy and also resection of infracalcaneal spur of the right foot. The procedures were reviewed with her, as well as the possible benefits vs risks, goals, and estimated recovery. Alternative options were reviewed with her - no surgery, EPAT, PRP, and other nonsurgical options. She elected to proceed with surgical intervention as noted. All the consent forms were reviewed with her and she freely signed them. No guarantees or warranties were given nor implied. Operative Procedure: The patient was brought back into the operating room and was in the supine position. She was carefully placed in the supine position and a well-padded pneumatic tourniquet was applied around her right ankle. A time-out was performed and the patient was properly identified and surgical plan was confirmed. The patient did receive prophylactic antibiotics for this procedure, which was 2g of Cefazolin intravenous. The patient received MAC anesthesia per the anesthesia team. The skin on the heel was prepped with 70% Isopropyl alcohol and a total of 10mL of 0.5% Bupivacaine was given as a local nerve block to the right hindfoot. The right foot was scrubbed, prepped and draped in the usual aseptic fashion. The right foot was elevated and exsanguinated using an Esmarch bandage and the ankle pneumatic tourniquet was inflated to 250mmHg. Plantar Fasciotomy: Attention was directed to the plantar fascia. A skin incision using a 15 blade was made to the medial hindfoot at the level of the origin of the plantar fascia. Careful dissection was completed down through the subcutaneous tissue layer. A plane was created superiorly and inferiorly around the plantar fascia. There was significant thickening, tightness, and fibrosis of the plantar fascia consistent with chronic plantar fasciitis. The medial 50% of the plantar fascia was released via a plantar fasciotomy. The site was flushed out with copious amounts of normal saline solution. Resection of infracalcaneal spur: An incision was made overlying the infracalcaneal spur, done using a 15 blade. Careful dissection was completed down to the calcaneal tuberosity. The infracalcaneal spur was identified. It was noted to be very prominent and impinging the soft tissues of the plantar heel. The the prominent bone which included the infracalcaneal spur on the calcaneal tuberosity was resected using a powered rasp as well as a bone cutting rongeur. A part of the resected bone spur which was obtained from the rongeur was sent to pathology for further evaluation, it was noted to be hard, white with adhesions and thickening of plantar fascia and muscle attached directly. The resection was confirmed using intraoperative fluoroscopy - images were saved in patient's chart. The site was flushed out with copious amounts of normal saline solution. The skin was reapproximated using 3-0 Nylon. An additional total of 20mL of 0.5% Bupivicaine plain was given as a local nerve block to the right hindfoot intra operately/post operatively to help with post operative pain management. The pneumatic tourniquet was deflated and there was immediate return of warmth and perfusion to the right foot with normal temperature gradient (total tourniquet time was 35 minutes). Capillary fill time was less than three seconds to all toes. A dressing was applied, which consisted of Betadine-soaked adaptic, 4 x 4 gauze, Kerlix, and Jeff bandage. Of note all vital structures, including all vital neurovascular structures and tendon structures were properly protected as necessary throughout the above operative procedures. The patient was transported from the operating room to the recovery room with vital signs stable and in good condition. Postoperative orders were placed. Post operative instructions have been reviewed with her and her son who was with her in room. No weightbearing right foot. Keep right foot elevated. Keep dressing clean, dry and intact. Prescribed Hydrocodone 5mg/Acetaminophen 325mg PO q 6 hours prn pain for pain control post op. Follow up with me next week, sooner if needed. Surgical Findings: As noted above Complications Complications: No
[2025-09-14 10:27] LABS: Potassium 4.2 mmol/L (3.3-5.1)
[2025-09-14 20:34] LABS: AST(SGOT) 32 U/L (<=31); Alanine Aminotransfer ALT/SGPT 41 U/L (<=34)
--- NOTE | 2025-09-15 11:51 | POSTOPAN2_ITS ---
Anesthesia Postop Eval I Sum Postop Eval Completion status Anesthesia document: Postop Eval 1 completed: Yes Anesthesia Postop Eval I Summary Anesthesia Postop Eval I Summary: Anesthesia Postop Eval I: Assessment Summary Airway patent Yes 09/14/25 08:41 [employer]IAL SERVICES [email or web address] Spontaneous unlabored Yes 09/14/25 08:41 SOCIAL SERVICES [email or web address] respirations Mental status nausea No 09/14/25 08:41 SOCIAL SERVICES [email or web address] Vomiting No 09/14/25 08:41 SOCIAL SERVICES [email or web address] Anesthesia Postop Eval I: Fluid Summary Crystalloid volume administer 1,000 09/14/25 08:41 SOCIAL SERVICES [email or web address] (ml) Colloids volume administered ( ml) Blood Product volume administered (ml) Total IV fluid infused 1,000 09/14/25 08:41 SOCIAL SERVICES [email or web address] Anesthesia Postop Eval I: Summary Notes Anesthesia Complication No 09/14/25 08:41 SOCIAL SERVICES [email or web address] Anesthesia Complication Comment: Post-operative progress note Anesthesia: Postop Eval II Evaluation Mental status: Awake and Calm Pain Level: 2 nausea: No Vomiting: No Complications Anesthesia Complication: No
--- NOTE | 2025-09-15 11:51 | PCM.POSTANE2 ---
Anesthesia Postop Eval I Sum Postop Eval Completion status Anesthesia document: Postop Eval 1 completed: Yes Anesthesia Postop Eval I Summary Anesthesia Postop Eval I Summary: Anesthesia Postop Eval I: Assessment Summary Airway patent Yes 09/14/25 08:41 [email or web address] Spontaneous unlabored Yes 09/14/25 08:41 [employer] [email or web address] respirations Mental status nausea No 09/14/25 08:41 [employer] [email or web address] Vomiting No 09/14/25 08:41 [employer] [email or web address] Anesthesia Postop Eval I: Fluid Summary Crystalloid volume administer 1,000 09/14/25 08:41 [email or web address] (ml) Colloids volume administered ( ml) Blood Product volume administered (ml) Total IV fluid infused 1,000 09/14/25 08:41 [email or web address] Anesthesia Postop Eval I: Summary Notes Anesthesia Complication No 09/14/25 08:41 [email or web address] Anesthesia Complication Comment: Post-operative progress note Anesthesia: Postop Eval II Evaluation Mental status: Awake and Calm Pain Level: 2 nausea: No Vomiting: No Complications Anesthesia Complication: No
== END 2025-09-14 10:26 | disposition home or self-care (01) ==
LOC: SDC 05:49 → AC 05:50
PROVIDERS: Student in an Organized Health Care Education/Training Program; Referring Provider Podiatrist; Visit Provider Podiatrist
DX: M72.2 Plantar fascial fibromatosis (principal); J44.9 Chronic obstructive pulmonary disease, unspecified; M76.71 Peroneal tendinitis, right leg; M77.31 Calcaneal spur, right foot; Z87.891 Personal history of nicotine dependence; K21.9 Gastro-esophageal reflux disease without esophagitis
CPT/HCPCS: 28119; 28008; 01480; 73620; 76000; 80048; 84132; 84450; 84460; 88304; 88305; 88311; J2405